=== PATIENT | male | born 1945 | race Caucasian/White ===

== ENCOUNTER 2016-11-10 05:37 | Inpatient (IN) ==
[2016-11-10] MEDS ORDERED: Ipratropium/Albuterol Neb 3 ML IH ONE (05:49)
[2016-11-10] MEDS ORDERED: *HR* LORazepam 2 MG/ML VIAL IVP ONE (05:56)
--- NOTE | 2016-11-10 05:56 | Emergency Department Note ---
Disposition Clinical Impression: COPD exacerbation Acute respiratory failure Qualifiers: Respiratory failure complication: hypoxia Qualified Code(s): J96.01 - Acute respiratory failure with hypoxia Pneumonia Qualifiers: Pneumonia type: due to unspecified organism Laterality: right Lung location: lower lobe of lung Qualified Code(s): J18.1 - Lobar pneumonia, unspecified organism Disposition: Still a Patient Condition: Serious Referrals: NO,PCP [Primary Care Provider] - Forms: ED Satisfaction Letter General Adult HPI - General Chief complaint: ED Shortness of Breath/Dyspnea Stated complaint: LOREE Time Seen by Provider: 11/10/16 05:43 Source: patient Limitations: no limitations Nursing Notes Reviewed: Yes Vital Signs Reviewed: Yes - History of Present Illness HPI Narrative: 71-year-old male who was sent [facility] the [facility] after he was admitted there today with pneumonia and COPD exacerbation. In reading the [facility] chart is seems he lives at home with his . He was sent here because he was agitated and was not tolerating the BiPAP and they felt he needed a higher level of care. He was diagnosed with pneumonia and started on vancomycin and Zosyn. When he arrived he was not on the BiPAP and his SPO2 was 70%. On BiPAP he does get into the mid 90s but remains to With a rate of approximate 40 and he cannot tolerate the BiPAP machine Consistency: constant Improves with: nothing Worsens with: nothing - Related Data Allergies Allergy/AdvReac Type Severity Reaction Status Date / Time acetaminophen [From Vicodin] Allergy See Verified 11/10/16 06:00 Comments hydrocodone [From Vicodin] Allergy See Verified 11/10/16 06:00 Comments moxifloxacin Allergy See Verified 11/10/16 06:00 Comments Limitations: ROS unobtainable due to patients medical condition Physical Exam - General Limitations: altered mental status General appearance: other (appears in respiratory distress) - Head Head exam: atraumatic - Eye Eye exam: Present: normal appearance - ENT ENT exam: normal exam - Neck Neck exam: Present: normal inspection - Chest Chest inspection: Present: normal inspection - Respiratory Respiratory exam: Present: respiratory distress, wheezes, accessory muscle use, prolonged expiratory phase - Cardiovascular Cardiovascular exam: Present: normal rhythm, tachycardia - Abdominal Exam Abdominal exam: Present: soft, Non-Tender - Extremities Exam Extremities exam: Present: normal inspection - Back Exam Back exam: Present: normal inspection - Neurological Exam Neurological exam: Present: alert, other (confused. agitated.) - Skin Skin exam: Present: warm, dry Course Course Narrative: When the patient arrived she was in respiratory distress S PO2 when he is off his mask was in the 70s. He is extremely agitated and could not tolerate BiPAP. We attempted giving Ativan 2 help with anxiolysis On removing the BiPAP machine and could not understand what he was doing. For his own safety was determined that he would need to be intubated to secure his airway. Intubation was performed by myself with one attempt. My understanding from the transfers that he was diagnosed with pneumonia and was sent here because they felt like he needed a higher level of care. He was unable to provide a history. In reviewing the basic lab work that was obtained he had a leukocytosis of 17.3, negative troponin sodium 132 potassium 3.2 chloride 81 bicarbonate 43 BUN 43 creatinine 0.73. We will obtain lab work and admitted to the ICU - Reevaluation(s) Reevaluation #1: The patient has been signed out to the day team for follow up of labwork and admission. The patient is currently stabilized from a respiratory standpoint and antibiotics/fluids are currently running. He is sedated with propofol and his sinus tachycardia is much improved after sedation. Vital Signs Temperature 98.2 F 11/10/16 05:40 Pulse Rate 125 11/10/16 05:40 Respiratory Rate 44 11/10/16 05:40 Blood Pressure 218/139 11/10/16 05:40 O2 Sat by Pulse Oximetry 91 L 11/10/16 05:40 Temperature 98.2 F 11/10/16 05:40 Pulse Rate 123 11/10/16 07:11 Respiratory Rate 14 11/10/16 07:11 Blood Pressure 192/98 11/10/16 07:11 O2 Sat by Pulse Oximetry 100 11/10/16 07:11 Oxygen Delivery Oxygen Delivery Ventilator Procedures - Intubation sedative: Etomidate Mg Given: 20 paralytic: Succinylcholine Mg Given: 100 Laryngoscope: Annelise ET Tube Size: 7.5 ET Tube Uncuffed: No Tube Secured Location: lips Tube Placement Confirmation: visualized tube passing through cords, equal breath sounds bilaterally, no breath sounds over epigastrium, confirmation by capnometry Patient Tolerated Procedure: well, no complications Intubation Complications: none Medical Decision Making - Medical Records Medical records reviewed: Yes I reviewed the patient's medical records. - Lab Data Lab results reviewed: Yes I reviewed the patient's lab results. - Radiology Data Radiology results reviewed: Yes I reviewed the patient's radiology results. - EKG Data EKG #1 EKG attestation: Yes I reviewed and interpreted this EKG. EKG shows normal: sinus rhythm Rate: tachycardia Rhythm: NSR [place]/QRS: normal Interpretation: other (sinus tach. No ST deviation.) Critical Care Time Critical Care Time: Yes Total Critical Care Time: 45 Attestation: Critical care performed: Time is exclusive of separately billable procedures. Time includes: direct patient care, patient reassessment, coordination of patient care, interpretation of data (laboratory data, radiology data, and respiratory data), review of patient's medical records, medical consultation and documentation of patient care. Procedures included in critical care time: Procedures excluded from critical care time: Endotracheal intubation Attestation Statement - Attestation Attestation: I, Levi Piedra MD, personally performed a history and physical exam of the patient and discussed their management with the resident. I reviewed the resident's note and agree with the documented findings, medical decision making , and plan of care. 71-year-old male who was transferred here from the [facility]. Patient was admitted there for pneumonia. After admission the patient developed increased respiratory distress and had to be placed on BiPAP. He became restless and agitated and was transferred here for more advanced care. Here in the emergency department the patient is alert. He is agitated and very tachypneic. He is hypertensive and tachycardic. Unable to obtain any history from the patient. He has been moderate respiratory distress. On examination patient is a well-developed well-nourished male in moderate respiratory distress. He is alert but confused and agitated. No cyanosis or diaphoresis. Oxygen saturation is 98% on BiPAP but he would not leave the BiPAP on and is pulling at his monitor leads and IV lines. Breath sounds are equal bilaterally with diffuse bilateral expiratory wheezes. Right midlung rales. Heart is moderately tachycardic. Abdomen soft with normal bowel sounds. Chest x-ray confirms a right pneumonia. Labs are pending. Patient became more and more agitated and the decision was made to go ahead and sedate and intubate the patient. He received etomidate 20 mg and succinylcholine 100 mg. He was intubated by Dr. Brunner on first attempt without difficulty. After intubation he was placed on a propofol infusion also received rocuronium 50 mg IV. At shift change the patient is being signed out to the oncoming dayshift team, Dr. Loyola and Dr. Hooks.
[2016-11-10] MEDS ORDERED: methylPREDNISolone 125 MG/2 ML VIAL IVP ONE (06:05)
[2016-11-10] MEDS ORDERED: 0.9 % Sodium Chloride 1,000 ML IVC ONE (06:29)
[2016-11-10] MEDS ORDERED: Propofol 500 MG/50 ML INFUS..BTL ONE (06:35)
[2016-11-10] MEDS ORDERED: *HR* Midazolam HCl 2 MG/2 ML VIAL IVP ONE (07:15)
[2016-11-10] MEDS ORDERED: *HR* Midazolam HCl 2 MG/2 ML VIAL ONE (07:16)
--- NOTE | 2016-11-10 07:28 | Emergency Department Note ---
Disposition Clinical Impression: COPD exacerbation Acute respiratory failure Qualifiers: Respiratory failure complication: hypoxia Qualified Code(s): J96.01 - Acute respiratory failure with hypoxia Pneumonia Qualifiers: Pneumonia type: due to unspecified organism Laterality: right Lung location: lower lobe of lung Qualified Code(s): J18.1 - Lobar pneumonia, unspecified organism Disposition: Admitted As Inpatient Condition: Serious SOB HPI - General Chief Complaint: ED Shortness of Breath/Dyspnea Stated Complaint: LOREE Time Seen by Provider: 11/10/16 05:43 Source: patient Limitations: altered mental status Nursing Notes Reviewed: Yes Vital Signs Reviewed: Yes - Related Data Home Medications Medication Instructions Recorded Confirmed Albuterol Sulfate [Albuterol 2 puff IH Q6HR PRN 11/10/16 11/10/16 Inhaler] Allopurinol [Zyloprim] 100 mg PO DAILY 11/10/16 11/10/16 Atorvastatin Calcium [Lipitor] 40 mg PO DAILY 11/10/16 11/10/16 Docusate Sodium [Dok] 100 mg PO BID PRN 11/10/16 11/10/16 Furosemide [Lasix] 40 mg PO DAILY 11/10/16 11/10/16 Guaifenesin [Mucus Relief] 400 mg PO BID PRN 11/10/16 11/10/16 Ipratropium/Albuterol Neb [Duoneb] 3 ml IH Q6HR PRN 11/10/16 11/10/16 Isosorbide MONOnitrate (24 HR) 30 mg PO DAILY 11/10/16 11/10/16 [Imdur] LORazepam [Ativan] 0.5 mg PO BID 11/10/16 11/10/16 Melatonin 3 mg PO HS 11/10/16 11/10/16 Methocarbamol [Robaxin-750] 750 mg PO QID PRN 11/10/16 11/10/16 Naproxen [Naprosyn] 500 mg PO BID 11/10/16 11/10/16 Omeprazole [PriLOSEC] 20 mg PO DAILY 11/10/16 11/10/16 Permethrin CRM [Elimite] 1 appl TP ONCE 11/10/16 11/10/16 Polyvinyl Alcohol [Artificial 1 drop BOTH EYES QID 11/10/16 11/10/16 Tears] Ranitidine HCl [Acid Sewing Demonstrator] 150 mg PO BID 11/10/16 11/10/16 Theophylline Anhydrous 300 mg PO BID 11/10/16 11/10/16 [Theophylline] Tiotropium Br/Olodaterol HCl 2 puff IH DAILY 11/10/16 11/10/16 [Stiolto Respimat Inhal [place]] Triamcinolone Acet 0.1% CRM 1 appl TP TID 11/10/16 11/10/16 [Kenalog] Allergies Allergy/AdvReac Type Severity Reaction Status Date / Time acetaminophen [From Vicodin] Allergy See Verified 11/10/16 06:00 Comments hydrocodone [From Vicodin] Allergy See Verified 11/10/16 06:00 Comments moxifloxacin Allergy See Verified 11/10/16 06:00 Comments Past Medical History - Past Medical History Medical history: Reports: COPD Psychiatric history: Reports: no psych history - Social History Smoking Status: Former smoker Smokeless Tobacco Status: No Alcohol use: Reports: none Drug use: Reports: none Physical Exam - General Limitations: altered mental status General appearance: other (appears in respiratory distress) Course Vital Signs Temperature 98.2 F 11/10/16 05:40 Pulse Rate 125 11/10/16 05:40 Respiratory Rate 44 11/10/16 05:40 Blood Pressure 218/139 11/10/16 05:40 O2 Sat by Pulse Oximetry 91 L 11/10/16 05:40 Temperature 98.2 F 11/10/16 05:40 Pulse Rate 112 11/10/16 08:17 Respiratory Rate 16 11/10/16 08:17 Blood Pressure 176/98 11/10/16 08:17 O2 Sat by Pulse Oximetry 98 11/10/16 08:17 Oxygen Delivery Oxygen Delivery Ventilator Shortness of Breath/Dyspnea - MDM Narrative Medical decision making narrative: I examined this patient and my medical decision-making was reviewed with the CLINICAL EDUCATION MANAGER/PA/Advanced Practice Nurse/Resident Physician. I agree with the documented findings, disposition and treatment plan as described except to the extent set forth below. This patient was a sign out from the evening ER staff Dr. Piedra. Patient was a transfer from the [facility] he had a hospital-acquired pneumonia and COPD. Was not tolerating BiPAP here. When they arrived here they intubated him due to respiratory distress. He has been tolerating that well. He does have pneumonia on his chest x-ray waiting on his labs and then we will go ahead and bring him into the hospital here. He got IV antibiotics at the [facility] Zosyn and vancomycin was the report. Patient stable at this time. I evaluated this patient Dr. Jessee Feliciano's evaluation management plan supervised care of the patient at [facility]. Chest X-Ray 11/10/16 06:32 IMPRESSION: 1. Endotracheal tube terminates 5.2 cm above the stephanie. D/ / Hesham Klein MD / Hesham Klein MD Interpreting Provider: Hesham Klein MD Chest X-Ray 11/10/16 06:32 IMPRESSION: 1. Endotracheal tube terminates 5.2 cm above the stephanie. D/ / Hesham Klein MD / Hesham Klein MD Interpreting Provider: Hesham Klein MD 0830 hrs. Patient's labs are back. Antibiotics were given at the [facility] and confirmed. Sedated on the vent. Spoke with the biostatistics manager they have excepted. Impression is COPD, pneumonia, hypoxia, anxiety. All acute. Critical-care time is having any separately billable procedures is 30 minutes. - Lab Data Result diagrams: 11/10/16 07:23 11/10/16 07:23 Lab Results 11/10/16 11/10/16 11/10/16 Range/Units 06:59 07:23 07:23 WBC 9.3 (4.3-11.1) K/mcL RBC 4.80 (4.19-5.50) M/mcL Hgb 13.7 (12.9-16.9) g/dL Hct 41.9 (37.5-50.1) % MCV 87.3 (83.0-100.0) fL MCH 28.5 (28.0-33.3) pg MCHC 32.7 (31.6-35.5) g/dL RDW 14.4 (11.5-14.5) % Plt Count 313 (140-400) K/mcL MPV 9.9 (9.4-12.4) fL Immature Gran % 4.7 H (0-4) % Seg Neutrophils % 83.6 % Lymphocytes % 5.8 % Monocytes % 5.4 % Eosinophils % 0.0 % Basophils % 0.5 % Neutrophils # 7.8 (1.6-8.9) K/mcL Lymphocytes # 0.5 L (0.6-4.6) K/mcL Monocytes # 0.5 (0.0-1.3) K/mcL Eosinophils # 0.0 (0.0-0.6) K/mcL Basophils # 0.1 (0.0-0.2) K/mcL Nucleated RBCs/100 WBC 0.3 H (0) /100 WBC PT (9.4-12.1) Seconds INR APTT (26.0-36.0) Seconds ABG pH (7.32-7.45) pH Units ABG pCO2 (35-45) mmHg ABG pO2 (85-104) mmHg ABG HCO3 (21-27) mEQ/L ABG Total CO2 (20-26) mEq/L ABG O2 Saturation (95-98) % ABG Base Excess (-2.0 to 3.0) mEq/L Blood Gas Modality Inspired O2 % Sodium (136-145) mEq/L Potassium (3.5-4.5) mEq/L Chloride (98-109) mEq/L Carbon Dioxide (19-29) mEq/L BUN (8-26) mg/dL Creatinine (0.72-1.25) mg/dL Est GFR ( Amer) (> 60) Est GFR (Non-Af Amer) (> 60) BUN/Creatinine Ratio (6-26) Glucose (70-99) mg/dL Calculated Osmolality (280-300) Lactic Acid (0.5-2.2) mmol/L Calcium (8.6-10.8) mg/dL Phosphorus (2.3-4.7) mg/dL Magnesium (1.6-2.6) mg/dL Total Bilirubin (0.2-1.2) mg/dL Direct Bilirubin (0.0-0.5) mg/dL Indirect Bilirubin (0.0-1.2) mg/dL AST (5-34) Units/L ALT (0-55) Units/L Alkaline Phosphatase (38-126) Units/L Troponin I (0-0.03) ng/mL B-Natriuretic Peptide 167 H (0-100) pg/mL Serum Total Protein (6.0-8.3) g/dL Albumin (3.5-5.0) g/dL Globulin (2.4-3.5) g/dL Albumin/Globulin Ratio (1.1-2.2) Urine Color Yellow (Yellow) Urine Clarity Cloudy A (Clear) Urine pH 6.0 (5.0-8.0) pH Units Ur Specific [place] 1.028 H (1.010-1.025) Urine Protein 100 H (Neg-Trace) mg/dL Urine Glucose (UA) Normal (Normal) mg/dL Urine Ketones 15 H (Negative) mg/dL Urine Blood Large H (Negative) Urine Nitrite Negative (Negative) Urine Bilirubin Negative (Negative) Urine Urobilinogen Normal (Normal) mg/dL Ur Leukocyte Esterase Negative (Negative) Urine Microscopic RBC TNTC H (0-3) per hpf Urine Microscopic WBC 5-15 H (0-3) per hpf Ur Squamous Epith Cells Many H (None-Few) per lpf Urine Bacteria None Seen (None-Few) per hpf Hyaline Casts Few (None-Few) per lpf Ur Culture Indicated? YES A (NO) 11/10/16 11/10/16 11/10/16 Range/Units 07:23 07:23 07:23 WBC (4.3-11.1) K/mcL RBC (4.19-5.50) M/mcL Hgb (12.9-16.9) g/dL Hct (37.5-50.1) % MCV (83.0-100.0) fL MCH (28.0-33.3) pg MCHC (31.6-35.5) g/dL RDW (11.5-14.5) % Plt Count (140-400) K/mcL MPV (9.4-12.4) fL Immature Gran % (0-4) % Seg Neutrophils % % Lymphocytes % % Monocytes % % Eosinophils % % Basophils % % Neutrophils # (1.6-8.9) K/mcL Lymphocytes # (0.6-4.6) K/mcL Monocytes # (0.0-1.3) K/mcL Eosinophils # (0.0-0.6) K/mcL Basophils # (0.0-0.2) K/mcL Nucleated RBCs/100 WBC (0) /100 WBC PT 12.6 H (9.4-12.1) Seconds INR 1.2 APTT 17.4 L (26.0-36.0) Seconds ABG pH (7.32-7.45) pH Units ABG pCO2 (35-45) mmHg ABG pO2 (85-104) mmHg ABG HCO3 (21-27) mEQ/L ABG Total CO2 (20-26) mEq/L ABG O2 Saturation (95-98) % ABG Base Excess (-2.0 to 3.0) mEq/L Blood Gas Modality Inspired O2 % Sodium 137 (136-145) mEq/L Potassium 4.0 (3.5-4.5) mEq/L Chloride 90 L (98-109) mEq/L Carbon Dioxide 30 H (19-29) mEq/L BUN 20 (8-26) mg/dL Creatinine 0.79 (0.72-1.25) mg/dL Est GFR ( Amer) > 60 (> 60) Est GFR (Non-Af Amer) > 60 (> 60) BUN/Creatinine Ratio 25 (6-26) Glucose 123 H (70-99) mg/dL Calculated Osmolality 288 (280-300) Lactic Acid 1.7 (0.5-2.2) mmol/L Calcium 8.9 (8.6-10.8) mg/dL Phosphorus 3.1 (2.3-4.7) mg/dL Magnesium 1.8 (1.6-2.6) mg/dL Total Bilirubin 0.9 (0.2-1.2) mg/dL Direct Bilirubin 0.5 (0.0-0.5) mg/dL Indirect Bilirubin 0.4 (0.0-1.2) mg/dL AST 23 (5-34) Units/L ALT 13 (0-55) Units/L Alkaline Phosphatase 112 (38-126) Units/L Troponin I (0-0.03) ng/mL B-Natriuretic Peptide (0-100) pg/mL Serum Total Protein 6.3 (6.0-8.3) g/dL Albumin 2.3 L (3.5-5.0) g/dL Globulin 4.0 H (2.4-3.5) g/dL Albumin/Globulin Ratio 0.6 L (1.1-2.2) Urine Color (Yellow) Urine Clarity (Clear) Urine pH (5.0-8.0) pH Units Ur Specific [place] (1.010-1.025) Urine Protein (Neg-Trace) mg/dL Urine Glucose (UA) (Normal) mg/dL Urine Ketones (Negative) mg/dL Urine Blood (Negative) Urine Nitrite (Negative) Urine Bilirubin (Negative) Urine Urobilinogen (Normal) mg/dL Ur Leukocyte Esterase (Negative) Urine Microscopic RBC (0-3) per hpf Urine Microscopic WBC (0-3) per hpf Ur Squamous Epith Cells (None-Few) per lpf Urine Bacteria (None-Few) per hpf Hyaline Casts (None-Few) per lpf Ur Culture Indicated? (NO) 11/10/16 11/10/16 Range/Units 07:23 07:30 WBC (4.3-11.1) K/mcL RBC (4.19-5.50) M/mcL Hgb (12.9-16.9) g/dL Hct (37.5-50.1) % MCV (83.0-100.0) fL MCH (28.0-33.3) pg MCHC (31.6-35.5) g/dL RDW (11.5-14.5) % Plt Count (140-400) K/mcL MPV (9.4-12.4) fL Immature Gran % (0-4) % Seg Neutrophils % % Lymphocytes % % Monocytes % % Eosinophils % % Basophils % % Neutrophils # (1.6-8.9) K/mcL Lymphocytes # (0.6-4.6) K/mcL Monocytes # (0.0-1.3) K/mcL Eosinophils # (0.0-0.6) K/mcL Basophils # (0.0-0.2) K/mcL Nucleated RBCs/100 WBC (0) /100 WBC PT (9.4-12.1) Seconds INR APTT (26.0-36.0) Seconds ABG pH 7.44 (7.32-7.45) pH Units ABG pCO2 66 H (35-45) mmHg ABG pO2 100 (85-104) mmHg ABG HCO3 44.8 H (21-27) mEQ/L ABG Total CO2 46.8 H (20-26) mEq/L ABG O2 Saturation 98 (95-98) % ABG Base Excess 17.3 H (-2.0 to 3.0) mEq/L Blood Gas Modality ASSIST CONTROL Inspired O2 60 % Sodium (136-145) mEq/L Potassium (3.5-4.5) mEq/L Chloride (98-109) mEq/L Carbon Dioxide (19-29) mEq/L BUN (8-26) mg/dL Creatinine (0.72-1.25) mg/dL Est GFR ( Amer) (> 60) Est GFR (Non-Af Amer) (> 60) BUN/Creatinine Ratio (6-26) Glucose (70-99) mg/dL Calculated Osmolality (280-300) Lactic Acid (0.5-2.2) mmol/L Calcium (8.6-10.8) mg/dL Phosphorus (2.3-4.7) mg/dL Magnesium (1.6-2.6) mg/dL Total Bilirubin (0.2-1.2) mg/dL Direct Bilirubin (0.0-0.5) mg/dL Indirect Bilirubin (0.0-1.2) mg/dL AST (5-34) Units/L ALT (0-55) Units/L Alkaline Phosphatase (38-126) Units/L Troponin I 0.04 H* (0-0.03) ng/mL B-Natriuretic Peptide (0-100) pg/mL Serum Total Protein (6.0-8.3) g/dL Albumin (3.5-5.0) g/dL Globulin (2.4-3.5) g/dL Albumin/Globulin Ratio (1.1-2.2) Urine Color (Yellow) Urine Clarity (Clear) Urine pH (5.0-8.0) pH Units Ur Specific [place] (1.010-1.025) Urine Protein (Neg-Trace) mg/dL Urine Glucose (UA) (Normal) mg/dL Urine Ketones (Negative) mg/dL Urine Blood (Negative) Urine Nitrite (Negative) Urine Bilirubin (Negative) Urine Urobilinogen (Normal) mg/dL Ur Leukocyte Esterase (Negative) Urine Microscopic RBC (0-3) per hpf Urine Microscopic WBC (0-3) per hpf Ur Squamous Epith Cells (None-Few) per lpf Urine Bacteria (None-Few) per hpf Hyaline Casts (None-Few) per lpf Ur Culture Indicated? (NO)
[2016-11-10] MEDS: FentaNYL (PF) 1,000 MCG in 0.9 % Sodium Chloride 80 ML IVC SCH ×2 (07:33→18:22)
[2016-11-10 07:37] LABS: Bilirubin,Urine Negative (Negative); Blood,Urine Large (Negative); Clarity,Urine Cloudy (Clear); Color,Urine Yellow (Yellow); Glucose,Urine (UA) Normal (Normal); Ketones,Urine 15 mg/dL (Negative); Leukocyte Esterase,Urine Negative (Negative); Nitrite,Urine Negative (Negative); Protein,Urine 100 mg/dL (Neg-Trace); Specific Gravity,Urine 1.028 (1.010-1.025); Urobilinogen,Urine Normal (Normal)
[2016-11-10 07:39] LABS: Bacteria,Urine None Seen per hpf (None-Few); RBC,Urine TNTC per hpf (0-3); Squamous Epithelial Cell,Urine Many per lpf (None-Few)
--- NOTE | 2016-11-10 07:39 | Emergency Department Note ---
Disposition Clinical Impression: COPD exacerbation Acute respiratory failure Qualifiers: Respiratory failure complication: hypoxia Qualified Code(s): J96.01 - Acute respiratory failure with hypoxia Pneumonia Qualifiers: Pneumonia type: due to unspecified organism Laterality: right Lung location: lower lobe of lung Qualified Code(s): J18.1 - Lobar pneumonia, unspecified organism Disposition: Admitted As Inpatient Condition: Serious Referrals: NO,PCP [Primary Care Provider] - Forms: ED Satisfaction Letter Time of Disposition: 08:32 SOB HPI - General Chief Complaint: ED Shortness of Breath/Dyspnea Stated Complaint: LOREE Time Seen by Provider: 11/10/16 05:43 Source: patient Limitations: altered mental status - Related Data Home Medications Medication Instructions Recorded Confirmed Albuterol Sulfate [Albuterol 2 puff IH Q6HR PRN 11/10/16 11/10/16 Inhaler] Allopurinol [Zyloprim] 100 mg PO DAILY 11/10/16 11/10/16 Atorvastatin Calcium [Lipitor] 40 mg PO DAILY 11/10/16 11/10/16 Docusate Sodium [Dok] 100 mg PO BID PRN 11/10/16 11/10/16 Furosemide [Lasix] 40 mg PO DAILY 11/10/16 11/10/16 Guaifenesin [Mucus Relief] 400 mg PO BID PRN 11/10/16 11/10/16 Ipratropium/Albuterol Neb [Duoneb] 3 ml IH Q6HR PRN 11/10/16 11/10/16 Isosorbide MONOnitrate (24 HR) 30 mg PO DAILY 11/10/16 11/10/16 [Imdur] LORazepam [Ativan] 0.5 mg PO BID 11/10/16 11/10/16 Melatonin 3 mg PO HS 11/10/16 11/10/16 Methocarbamol [Robaxin-750] 750 mg PO QID PRN 11/10/16 11/10/16 Naproxen [Naprosyn] 500 mg PO BID 11/10/16 11/10/16 Omeprazole [PriLOSEC] 20 mg PO DAILY 11/10/16 11/10/16 Permethrin CRM [Elimite] 1 appl TP ONCE 11/10/16 11/10/16 Polyvinyl Alcohol [Artificial 1 drop BOTH EYES QID 11/10/16 11/10/16 Tears] Ranitidine HCl [Acid Community Service Representative] 150 mg PO BID 11/10/16 11/10/16 Theophylline Anhydrous 300 mg PO BID 11/10/16 11/10/16 [Theophylline] Tiotropium Br/Olodaterol HCl 2 puff IH DAILY 11/10/16 11/10/16 [Stiolto Respimat Inhal [place]] Triamcinolone Acet 0.1% CRM 1 appl TP TID 11/10/16 11/10/16 [Kenalog] Allergies Allergy/AdvReac Type Severity Reaction Status Date / Time acetaminophen [From Vicodin] Allergy See Verified 11/10/16 06:00 Comments hydrocodone [From Vicodin] Allergy See Verified 11/10/16 06:00 Comments moxifloxacin Allergy See Verified 11/10/16 06:00 Comments Past Medical History - Past Medical History Medical history: Reports: COPD Psychiatric history: Reports: no psych history - Social History Smoking Status: Former smoker Smokeless Tobacco Status: No Alcohol use: Reports: none Drug use: Reports: none Physical Exam - General Limitations: altered mental status General appearance: other (appears in respiratory distress) Course Course Narrative: 0700 Patient was signed out at the beginning my shift by Dr. Brunner and Dr. Piedra. Patient presented to the [facility] for evaluation of persistently worsening shortness of breath and altered mental status. He presented to their facility with what appear to be a COPD exacerbation with pneumonia. According to sign out patient received antibiotics in his head and entire detailed workup started. I reviewed the labs that were ordered as well as a transfer papers from the outside facility. Patient had alterations in the sedation regiment started prior to my arrival. Fentanyl was added on as well as dosing of propofol. Patient still comfortable on the ventilator this time. Repeat physical exam by myself shows bilateral ventilation is in no apparent distress at this point. Labs will be resulted and completed and patient will need admission to the hospital. Chest x-ray is reviewed and shows a right lower lobe consolidation that is different from previous according to the chest x-ray reviewed from the [facility] and a repeat imaging study performed at our facility. Patient is stable at this time vital signs are being augmented by medication but are within normal limits we will continue to monitor the admission process to the ICU is completed. No other acute issues noted during my initial evaluation we will continue to observe - Reevaluation(s) Reevaluation #1: Patient's labs reviewed elevated troponin but just above normal. ICU Attending contacted this time Time: 08:12 Reevaluation #2: Detailed consultation as well as review of patient's medical history presentation were discussed with the on-call thread separator Dr. Rojas. He is happy to accept the patient to the ICU at this time. Patient's vital signs have stabilized after medical intervention. Sedation is appropriate at this point. ICU admission to be completed this time. We will continue to monitor the patient in emergency room until the admission process is completed Time: 08:32 Vital Signs Temperature 98.2 F 11/10/16 05:40 Pulse Rate 125 11/10/16 05:40 Respiratory Rate 44 11/10/16 05:40 Blood Pressure 218/139 11/10/16 05:40 O2 Sat by Pulse Oximetry 91 L 11/10/16 05:40 Temperature 98.2 F 11/10/16 05:40 Pulse Rate 95 11/10/16 07:35 Respiratory Rate 14 11/10/16 07:35 Blood Pressure 140/88 11/10/16 07:35 O2 Sat by Pulse Oximetry 100 11/10/16 07:35 Oxygen Delivery Oxygen Delivery Ventilator Shortness of Breath/Dyspnea - MDM Narrative Medical decision making narrative: Altered mental status, acute respiratory failure, pneumonia - Medical Records Medical records reviewed: Yes I reviewed the patient's medical records. - Lab Data Lab results reviewed: Yes I reviewed the patient's lab results. - Radiology Data Radiology results reviewed: Yes I reviewed the patient's radiology results. Chest x-ray shows right lower lobe consolidation reviewed by myself and confirmed by radiology - EKG Data EKG attestation: Yes I reviewed and interpreted this EKG. EKG shows normal: Reports: sinus rhythm Rate: Reports: tachycardia Rhythm: Reports: other (Intermittent ectopy on EKG)
[2016-11-10] MEDS ORDERED: Piperacillin/Tazobactam 3.375 GM in D5% in Water (Mini-Bag+) 100 ML IVPB ONE (07:40)
[2016-11-10] MEDS ORDERED: Vancomycin 1,000 MG in D5% in Water 250 ML IVPB ONE (07:40)
[2016-11-10 07:42] LABS: ABG Base Excess 17.3 mEq/L (-2.0 to 3.0); ABG HCO3 44.8 mEQ/L (21-27); ABG Oxygen Saturation 98 % (95-98); ABG PCO2 66 mmHg (35-45); ABG PH 7.44 pH Units (7.32-7.45); ABG PO2 100 mmHg (85-104); ABG TCO2 46.8 mEq/L (20-26)
[2016-11-10 07:43] LABS: Blood Gas FiO2 60 %
[2016-11-10] MEDS ORDERED: *HR* Etomidate 20 MG/10 ML AMPUL IVP ONE (07:43)
[2016-11-10] MEDS ORDERED: *HR* Succinylcholine 200 MG/10 ML VIAL IVP ONE (07:43)
[2016-11-10] MEDS ORDERED: *HR* Rocuronium Bromide 50 MG/5 ML VIAL IVC ONE (07:43)
[2016-11-10 07:46] LABS: Basophils # 0.1 K/mcL (0.0-0.2); Basophils % 0.5 %; Hematocrit 41.9 % (37.5-50.1); Hemoglobin 13.7 g/dL (12.9-16.9); Immature Granulocytes % 4.7 % (0-4); Lymphocytes # 0.5 K/mcL (0.6-4.6); Lymphocytes % 5.8 %; Mean Corpuscular HGB Conc 32.7 g/dL (31.6-35.5); Mean Corpuscular Hemoglobin 28.5 pg (28.0-33.3); Mean Corpuscular Volume 87.3 fL (83.0-100.0); Mean Platelet Volume 9.9 fL (9.4-12.4); Monocytes # 0.5 K/mcL (0.0-1.3); Monocytes % 5.4 %; Neutrophils # 7.8 K/mcL (1.6-8.9); Nucleated Red Blood Cells 0.3 /100 WBC (0); Platelet Count 313 K/mcL (140-400); Red Cell Distribution Width 14.4 % (11.5-14.5); Segmented Neutrophils % 83.6 %
[2016-11-10 07:52] LABS: Hyaline Casts,Urine Few per lpf (None-Few)
[2016-11-10 08:00] LABS: Alanine Aminotransferase 13 Units/L (0-55); Albumin 2.3 g/dL (3.5-5.0); Albumin/Globulin Ratio 0.6 (1.1-2.2); Alkaline Phosphatase 112 Units/L (38-126); Aspartate Amino Transferase 23 Units/L (5-34); BUN/Creatinine Ratio 25 (6-26); Bilirubin,Direct 0.5 mg/dL (0.0-0.5); Bilirubin,Indirect 0.4 mg/dL (0.0-1.2); Bilirubin,Total 0.9 mg/dL (0.2-1.2); Blood Urea Nitrogen 20 mg/dL (8-26); Calcium 8.9 mg/dL (8.6-10.8); Carbon Dioxide 30 mEq/L (19-29); Chloride 90 mEq/L (98-109); Glucose 123 mg/dL (70-99); Magnesium 1.8 mg/dL (1.6-2.6); Osmolality,Calculated 288 (280-300); Phosphorous 3.1 mg/dL (2.3-4.7); Sodium 137 mEq/L (136-145); Total Protein 6.3 g/dL (6.0-8.3); eGFR For African Americans > 60 (> 60); eGFR For Non-African Americans > 60 (> 60)
[2016-11-10] MEDS ORDERED: 0.9 % Sodium Chloride 1,000 ML ONE (08:00)
[2016-11-10 08:09] LABS: INR 1.2; Prothrombin Time 12.6 Seconds (9.4-12.1)
[2016-11-10 08:11] LABS: Activated Partial Thrombo Time 17.4 Seconds (26.0-36.0)
[2016-11-10] MEDS ORDERED: Aspirin 81 MG TAB.CHEW PO STA (08:14)
[2016-11-10] MEDS ORDERED: Lacri-Lube 3.5 GM TUBE BOTH EYES PRN (09:26)
--- NOTE | 2016-11-10 09:44 | Pulmonology History & Physical ---
Date of Encounter: 11/10/16 Time of Encounter: 09:38 Assessment and Plan (1) Acute respiratory failure Current visit: Yes Status: Acute Patient with a known history of COPD presented to [place] before transfer to [facility] with increasing shortness of breath. Patient was placed on bipap but eventually sedated and intubated due to agitation while on bipap. CXR suggestive of right lower lobe pneumonia Blood cultures from [place] resulted in gram positive cocci in chains in both bottles. WBC 9.3 Suspect acute respiratory failure secondary to pneumonia, likely aspiration, vs copd exacerbation. Blood cultures x2 received, sputum culture ordered, urine legionella and strep pneumoniae antigen ordered, MRSA swab surveillance ordered. Patient intubated receiving PEEP of 5 and FiO2 at 40%, satting at 98%. Vitals stable. Solumedrol 40mg q6h, duonebs q4h, Vancomycin and zosyn. Qualifiers: Respiratory failure complication: hypoxia and hypercapnia Qualified Code(s) : J96.01 - Acute respiratory failure with hypoxia; J96.02 - Acute respiratory failure with hypercapnia (2) Pneumonia Current visit: Yes Status: Acute CXR revealed right lower lobe airpace disease concerning for pneumonia. WBC 9.3 Blood cultures from [place] revealed gram positive cocci in chain in both bottles. Continue with antibiotics vancomycin and zosyn. May discontinue vancomycin if MRSA screening negative. Qualifiers: Pneumonia type: due to unspecified organism Laterality: right Lung location: lower lobe of lung Qualified Code(s): J18.1 - Lobar pneumonia, unspecified organism (3) COPD exacerbation Current visit: Yes Status: Acute per plan in assessments above. (4) Altered mental status Current visit: Yes Status: Acute Likely secondary to acute respiratory failure secondary to pneumonia vs copd exacerbation. Qualifiers: Altered mental status type: unspecified Qualified Code(s): R41.82 - Altered mental status, unspecified (5) Elevated troponin Current visit: Yes Status: Acute Troponin at 0.04, EKG revealed sinus tachycardia. Troponin elevation likely due to demand ischemia secondary to acute respiratory failure. (6) GERD (gastroesophageal reflux disease) Current visit: Yes Status: Acute gi ppx with protonix. Qualifiers: Esophagitis presence: esophagitis presence not specified Qualified Code(s) : K21.9 - Gastro-esophageal reflux disease without esophagitis (7) Hepatitis C Current visit: Yes Status: Acute History of Hepatitis C when reviewing [place] records. No current therapy at this time. Qualifiers: Viral hepatitis chronicity: unspecified Hepatic coma status: without hepatic coma Qualified Code(s): B19.20 - Unspecified viral hepatitis C without hepatic coma (8) DVT prophylaxis Current visit: Yes Status: Acute Heparin for dvt ppx. History of Present Illness Chief complaint: Acute Respiratory Failure, pneumonia, copd exac HPI: Mr. Guardado is a 71 year old male with history of COPD, CAD, Hepatitis C, GERD, gout, and dyslipidemia who presented to [facility] ED via transfer from [place] with complaint of increasing shortness of breath found to be pneumonia vs COPD exacerbation. He was transferred due to inability to tolerate BiPap. Bipap in [facility] ED resulted in mid 90 sats; however patient became agitated and removing bipap. Patient was therefore intubated and soft restraints ordered. Cultures and imaging were ordered which revealed right lower lobe pneumonia. Patient currently sedated and intubated on ventilator with PEEP of 5 and FiO2 of 40%. Past Med Surg Social Fam HX - Past Medical History Medical history: COPD, coronary artery disease, GERD, hepatitis (Hep C), hyperlipidemia, other (gout) Psychiatric history: no psych history - Social History Smoking Status: Former smoker Smokeless Tobacco Status: No Alcohol use: none Drug use: none Current living situation: Home - Independent, With Family Activity Level: Independent ambulation Recent Out of Country Travel Within the Last 8 Weeks: No Exposure or Possible Exposure to Illness During Travel: No Medications and Allergies Albuterol Sulfate [Albuterol Inhaler] 2 puff IH Q6HR PRN 11/10/16 [History] Allopurinol [Zyloprim] 100 mg PO DAILY 11/10/16 [History] Atorvastatin Calcium [Lipitor] 40 mg PO DAILY 11/10/16 [History] Docusate Sodium [Dok] 100 mg PO BID PRN 11/10/16 [History] Furosemide [Lasix] 40 mg PO DAILY 11/10/16 [History] Guaifenesin [Mucus Relief] 400 mg PO BID PRN 11/10/16 [History] Ipratropium/Albuterol Neb [Duoneb] 3 ml IH Q6HR PRN 11/10/16 [History] Isosorbide MONOnitrate (24 HR) [Imdur] 30 mg PO DAILY 11/10/16 [History] LORazepam [Ativan] 0.5 mg PO BID 11/10/16 [History] Melatonin 3 mg PO HS 11/10/16 [History] Methocarbamol [Robaxin-750] 750 mg PO QID PRN 11/10/16 [History] Naproxen [Naprosyn] 500 mg PO BID 11/10/16 [History] Omeprazole [PriLOSEC] 20 mg PO DAILY 11/10/16 [History] Permethrin CRM [Elimite] 1 appl TP ONCE 11/10/16 [History] Polyvinyl Alcohol [Artificial Tears] 1 drop BOTH EYES QID 11/10/16 [History] Ranitidine HCl [Acid Solder Deposit Operator] 150 mg PO BID 11/10/16 [History] Theophylline Anhydrous [Theophylline] 300 mg PO BID 11/10/16 [History] Tiotropium Br/Olodaterol HCl [Stiolto Respimat Inhal [place]] 2 puff IH DAILY [History] Triamcinolone Acet 0.1% CRM [Kenalog] 1 appl TP TID 11/10/16 [History] Allergies acetaminophen [From Vicodin] Allergy (Verified 11/10/16 06:00) See Comments Unknown Allergy hydrocodone [From Vicodin] Allergy (Verified 11/10/16 06:00) See Comments Unknown Allergy moxifloxacin Allergy (Verified 11/10/16 06:00) See Comments Unknown Allergy ROS unobtainable: due to endotracheal tube, due to mental status All Systems: A 10-system review of systems was performed and is negative for pertinent findings except as documented above in the HPI. Physical Examination Vital Signs: Vital Signs, Last 4 Hours Temp Pulse Resp BP 11/10/16 09:13 97.8 F 12 101/58 11/10/16 08:49 78 12 110/58 General appearance: other (sedated and intubated on ventilator, no extremity movement or eye opening when prompted) Eyes: nonicteric Neck: supple Effort: normal Inspection: normal Auscultation: left: rhonchi (mild), right: rales Cardiovascular: regular rate and rhythm Gastrointestinal: hypoactive bowel sounds, soft, non-distended Integumentary: normal Extremities: no cyanosis, no edema, pink and warm, pulses normal Musculoskeletal: no deformities non-focal exam, pupils equal and round Results - Laboratory Findings CBC and BMP: 11/10/16 07:23 11/10/16 07:23 ABG ABG pH 7.44 pH Units (7.32-7.45) 11/10/16 07:30 ABG pCO2 66 mmHg (35-45) H 11/10/16 07:30 ABG pO2 100 mmHg (85-104) 11/10/16 07:30 ABG O2 Saturation 98 % (95-98) 11/10/16 07:30 PT/INR, D-dimer PT 12.6 Seconds (9.4-12.1) H 11/10/16 07:23 Abnormal lab findings: Abnormal lab results Immature Gran % 4.7 % (0-4) H 11/10/16 07:23 Lymphocytes # 0.5 K/mcL (0.6-4.6) L 11/10/16 07:23 Nucleated RBCs/100 WBC 0.3 /100 WBC (0) H 11/10/16 07:23 PT 12.6 Seconds (9.4-12.1) H 11/10/16 07:23 APTT 17.4 Seconds (26.0-36.0) L 11/10/16 07:23 ABG pCO2 66 mmHg (35-45) H 11/10/16 07:30 ABG HCO3 44.8 mEQ/L (21-27) H 11/10/16 07:30 ABG Total CO2 46.8 mEq/L (20-26) H 11/10/16 07:30 ABG Base Excess 17.3 mEq/L (-2.0 to 3.0) H 11/10/16 07:30 Chloride 90 mEq/L (98-109) L 11/10/16 07:23 Carbon Dioxide 30 mEq/L (19-29) H 11/10/16 07:23 Glucose 123 mg/dL (70-99) H 11/10/16 07:23 Troponin I 0.04 ng/mL (0-0.03) H* 11/10/16 07:23 B-Natriuretic Peptide 167 pg/mL (0-100) H 11/10/16 07:23 Albumin 2.3 g/dL (3.5-5.0) L 11/10/16 07:23 Globulin 4.0 g/dL (2.4-3.5) H 11/10/16 07:23 Albumin/Globulin Ratio 0.6 (1.1-2.2) L 11/10/16 07:23 Urine Clarity Cloudy (Clear) A 11/10/16 06:59 Ur Specific [place] 1.028 (1.010-1.025) H 11/10/16 06:59 Urine Protein 100 mg/dL (Neg-Trace) H 11/10/16 06:59 Urine Ketones 15 mg/dL (Negative) H 11/10/16 06:59 Urine Blood Large (Negative) H 11/10/16 06:59 Urine Microscopic RBC TNTC per hpf (0-3) H 11/10/16 06:59 Urine Microscopic WBC 5-15 per hpf (0-3) H 11/10/16 06:59 Ur Squamous Epith Cells Many per lpf (None-Few) H 11/10/16 06:59 Ur Culture Indicated? YES (NO) A 11/10/16 06:59 Vancomycin Trough 4.5 mcg/mL (10-20) L 11/10/16 07:40
[2016-11-10 10:48] LABS: ABG Base Excess 19.7 mEq/L (-2.0 to 3.0); ABG HCO3 48.2 mEQ/L (21-27); ABG Oxygen Saturation 96 % (95-98); ABG PH 7.41 pH Units (7.32-7.45); ABG PO2 83 mmHg (85-104); ABG TCO2 50.5 mEq/L (20-26); Blood Gas FiO2 40 %
[2016-11-10 10:50] LABS: ABG PCO2 76 mmHg (35-45)
[2016-11-10] MEDS ORDERED: Naloxone 0.4 MG/ML INJ IVP PRN (11:05)
[2016-11-10] MEDS: MethylPREDNISolone 40 MG/ML VIAL IVP SCH ×3 (12:09→23:09)
[2016-11-10] MEDS: Lacri-Lube 3.5 GM TUBE BOTH EYES SCH ×4 (12:09→23:10)
[2016-11-10] MEDS: *HR* Heparin 5,000 UNIT/ML VIAL SQ SCH ×3 (12:09→23:09)
[2016-11-10] MEDS: Ipratropium/Albuterol Neb 3 ML IH SCH ×3 (12:14→20:56)
--- NOTE | 2016-11-10 16:09 | Electrocardiograph Report ---
[facility] Test Date: 2016-11-10 Pat Name: Stefano Guardado Department: [id number] Room: 08 Gender: M [employer]: CATE : 1945 Requested By: Mitchell Brunner Order Number: [id number] Reading MD: Xuan Hines Measurements Intervals [place] Rate: 123 P: 70 IN: 110 QRS: 38 QRSD: 94 T: 65 QT: 302 QTc: 375 Interpretive Statements SINUS TACHYCARDIA WITH SHORT IN INTERVAL WITH OCCASIONAL SUPRAVENTRICULAR PREMATURE COMPLEXES ABNORMAL RHYTHM ECG Electronically Signed On 11-10-16 16:07:11 EST by Xuan Hines
[2016-11-10] MEDS: Chlorhexidine Rinse 15 ML MOUTHWASH MM SCH (19:55)
[2016-11-11] MEDS: Ipratropium/Albuterol Neb 3 ML IH SCH ×6 (00:36→19:45)
[2016-11-11 02:49] LABS: Basophils % 0.3 %; Hematocrit 34.4 % (37.5-50.1); Immature Granulocytes % 4.7 % (0-4); Lymphocytes # 0.8 K/mcL (0.6-4.6); Lymphocytes % 9.7 %; Mean Corpuscular HGB Conc 32.6 g/dL (31.6-35.5); Mean Corpuscular Hemoglobin 28.5 pg (28.0-33.3); Mean Corpuscular Volume 87.5 fL (83.0-100.0); Mean Platelet Volume 9.6 fL (9.4-12.4); Monocytes # 0.7 K/mcL (0.0-1.3); Monocytes % 8.8 %; Neutrophils # 6.1 K/mcL (1.6-8.9); Nucleated Red Blood Cells 0.3 /100 WBC (0); Platelet Count 265 K/mcL (140-400); Red Blood Count 3.93 M/mcL (4.19-5.50); Red Cell Distribution Width 14.6 % (11.5-14.5); Segmented Neutrophils % 76.5 %
[2016-11-11 02:50] LABS: Hemoglobin 11.2 g/dL (12.9-16.9)
[2016-11-11 02:54] LABS: Ionized Calcium 1.08 mmol/L (1.15-1.35)
[2016-11-11 03:02] LABS: Alanine Aminotransferase 12 Units/L (0-55); Alkaline Phosphatase 75 Units/L (38-126); Aspartate Amino Transferase 17 Units/L (5-34); BUN/Creatinine Ratio 38 (6-26); Bilirubin,Total 0.3 mg/dL (0.2-1.2); Calcium 8.6 mg/dL (8.6-10.8); Carbon Dioxide 39 mEq/L (19-29); Chloride 91 mEq/L (98-109); Glucose 155 mg/dL (70-99); Magnesium 2.1 mg/dL (1.6-2.6); Osmolality,Calculated 301 (280-300); Phosphorous 3.5 mg/dL (2.3-4.7); Potassium 3.9 mEq/L (3.5-4.5); Sodium 139 mEq/L (136-145); Total Protein 5.2 g/dL (6.0-8.3); eGFR For African Americans > 60 (> 60); eGFR For Non-African Americans > 60 (> 60)
[2016-11-11 03:03] LABS: Albumin/Globulin Ratio 0.6 (1.1-2.2); Globulin 3.3 g/dL (2.4-3.5)
[2016-11-11 03:04] LABS: Albumin 1.9 g/dL (3.5-5.0); Blood Urea Nitrogen 41 mg/dL (8-26)
[2016-11-11] MEDS: Lacri-Lube 3.5 GM TUBE BOTH EYES SCH (04:30)
[2016-11-11 05:29] LABS: ABG Base Excess 13.5 mEq/L (-2.0 to 3.0); ABG HCO3 44.5 mEQ/L (21-27); ABG Oxygen Saturation 97 % (95-98); ABG PH 7.27 pH Units (7.32-7.45); ABG PO2 100 mmHg (85-104); ABG TCO2 47.5 mEq/L (20-26)
[2016-11-11 05:30] LABS: Blood Gas FiO2 40 %
[2016-11-11 05:32] LABS: ABG PCO2 97 mmHg (35-45)
[2016-11-11] MEDS: FentaNYL (PF) 1,000 MCG in 0.9 % Sodium Chloride 80 ML IVC SCH ×4 (05:51→19:58)
[2016-11-11] MEDS: *HR* Heparin 5,000 UNIT/ML VIAL SQ SCH ×3 (05:52→23:48)
[2016-11-11] MEDS: MethylPREDNISolone 40 MG/ML VIAL IVP SCH ×3 (05:52→18:53)
[2016-11-11] MEDS ORDERED: Vancomycin 1,000 MG in D5% in Water 250 ML IVPB SCH (07:00)
[2016-11-11] MEDS ORDERED: Calcium Gluconate 1,000 MG in D5% in Water 100 ML IVPB ONE (07:36)
--- NOTE | 2016-11-11 07:43 | Pulmonology Progress Note ---
Date of Encounter: 11/11/16 Time of Encounter: 07:40 Assessment and Plan (1) Acute respiratory failure Current Visit: Yes Status: Acute Patient sedated and intubated, easily arousable, good eye movement and extremity movement when prompted. Due to agitation, patient is in soft restraints of upper extremities Acute respiratory failure secondary to pneumonia vs copd exacerbation Blood cultures from [place] grew gram positive cocci in chains, Urine Strep pneumoniae Antigen is positive, sputum culture results pending, MRSA screen negative. WBC 7.9 Continue ventilator support. PEEP 5, FiO2 40%, rate 14, satting 98%. Vitals stable Continue steroids, duonebs. Vancomycin and Zosyn discontinued. Start Rocephin. Qualifiers: Respiratory failure complication: hypoxia and hypercapnia Qualified Code(s) : J96.01 - Acute respiratory failure with hypoxia; J96.02 - Acute respiratory failure with hypercapnia (2) Pneumonia Current Visit: Yes Status: Acute Continue per plan in assessment above. Qualifiers: Pneumonia type: due to Pneumococcus Laterality: right Lung location: lower lobe of lung Qualified Code(s): J13 - Pneumonia due to Streptococcus pneumoniae (3) COPD exacerbation Current Visit: Yes Status: Acute per plan in assessments above. (4) Altered mental status Current Visit: Yes Status: Acute Likely secondary to acute respiratory failure secondary to pneumonia vs copd exacerbation. Qualifiers: Altered mental status type: unspecified Qualified Code(s): R41.82 - Altered mental status, unspecified (5) Elevated troponin Current Visit: Yes Status: Acute (6) GERD (gastroesophageal reflux disease) Current Visit: Yes Status: Acute gi ppx with protonix. Qualifiers: Esophagitis presence: esophagitis presence not specified Qualified Code(s) : K21.9 - Gastro-esophageal reflux disease without esophagitis (7) Hepatitis C Current Visit: Yes Status: Acute History of [facility] No current therapy at this time. Qualifiers: Viral hepatitis chronicity: unspecified Hepatic coma status: without hepatic coma Qualified Code(s): B19.20 - Unspecified viral hepatitis C without hepatic coma (8) DVT prophylaxis Current Visit: Yes Status: Acute Heparin for dvt ppx. Subjective Principal diagnosis: Acute Resp Failure Interval history: Patient did well overnight. Arousable and agitated while on ventilator, soft restraints in place upper extremities. Critical lab this morning of pCO2 97; therefore, increased vent rate from 12 to 14. Vent continues at FiO2 40% and PEEP 5. Objective PUL Vital signs: Last Vital Signs Temp 98.3 F 11/11/16 04:00 Pulse 57 11/11/16 06:00 Resp 14 11/11/16 06:00 BP 108/53 11/11/16 06:00 Pulse Ox 96 11/11/16 06:00 General appearance: other (Intubated on ventilator, agitated when arousable, eye opening prompted, extremity movement when prompted) Eyes: nonicteric Neck: supple Effort: normal Auscultation: left: clear, right: rales Cardiovascular: regular rate and rhythm Gastrointestinal: hypoactive bowel sounds, soft, non-distended Integumentary: normal Extremities: no cyanosis, no edema, pink and warm, pulses normal Musculoskeletal: no deformities non-focal exam, pupils equal and round Ventilator Settings Ventilator Settings: Ventilator Settings, Last 8 Hours Ventilator Mode A/C Ventilator Mode A/C Ventilator Mode A/C Ventilator Mode VC+ Ventilator Mode VC+ Ventilator Mode VC+ Ventilator Mode VC+ Ventilator Mode VC+ Ventilator Mode VC+ Ventilator Mode VC+ Ventilator Mode VC+ Ventilator Mode VC+ Ventilator Tidal Volume 500 Setting Ventilator Tidal Volume 500 Setting Ventilator Tidal Volume 500 Setting Ventilator Tidal Volume 500 Setting Ventilator Tidal Volume 500 Setting Ventilator Tidal Volume 500 Setting Ventilator Tidal Volume 500 Setting Ventilator Tidal Volume 500 Setting Ventilator Tidal Volume 500 Setting Ventilator Tidal Volume 500 Setting Ventilator Tidal Volume 500 Setting Ventilator Tidal Volume 500 Setting Ventilator Respiratory Rate 14 Setting Ventilator Respiratory Rate 14 Setting Ventilator Respiratory Rate 12 Setting Ventilator Respiratory Rate 12 Setting Ventilator Respiratory Rate 12 Setting Ventilator Respiratory Rate 12 Setting Ventilator Respiratory Rate 12 Setting Ventilator Respiratory Rate 12 Setting Ventilator Respiratory Rate 12 Setting Ventilator Respiratory Rate 12 Setting Ventilator Respiratory Rate 12 Setting Ventilator Respiratory Rate 12 Setting Actual Respiratory Rate 14 Actual Respiratory Rate 14 Actual Respiratory Rate 12 Actual Respiratory Rate 12 Actual Respiratory Rate 12 Actual Respiratory Rate 12 Actual Respiratory Rate 12 Actual Respiratory Rate 12 Actual Respiratory Rate 12 Actual Respiratory Rate 12 Actual Respiratory Rate 12 Positive End Expiratory 5 Pressure Positive End Expiratory 5 Pressure Positive End Expiratory 5 Pressure Positive End Expiratory 5 Pressure Positive End Expiratory 5 Pressure Positive End Expiratory 5 Pressure Positive End Expiratory 5 Pressure Positive End Expiratory 5 Pressure Positive End Expiratory 5 Pressure Positive End Expiratory 5 Pressure Positive End Expiratory 5 Pressure Positive End Expiratory 5 Pressure Peak Inspiratory Airway 26 Pressure Peak Inspiratory Airway 27 Pressure Peak Inspiratory Airway 23 Pressure Peak Inspiratory Airway 25 Pressure Peak Inspiratory Airway 24 Pressure Peak Inspiratory Airway 23 Pressure Peak Inspiratory Airway 26 Pressure Peak Inspiratory Airway 25 Pressure Peak Inspiratory Airway 26 Pressure Peak Inspiratory Airway 26 Pressure Peak Inspiratory Airway 21 Pressure Results - Laboratory Findings CBC and BMP: 11/11/16 02:42 11/11/16 02:42 ABG ABG pH 7.27 pH Units (7.32-7.45) L 11/11/16 05:21 ABG pCO2 97 mmHg (35-45) H* 11/11/16 05:21 ABG pO2 100 mmHg (85-104) 11/11/16 05:21 ABG O2 Saturation 97 % (95-98) 11/11/16 05:21 PT/INR, D-dimer PT 12.6 Seconds (9.4-12.1) H 11/10/16 07:23 Abnormal lab findings: Abnormal lab results RBC 3.93 M/mcL (4.19-5.50) L 11/11/16 02:42 Hgb 11.2 g/dL (12.9-16.9) L D 11/11/16 02:42 Hct 34.4 % (37.5-50.1) L 11/11/16 02:42 RDW 14.6 % (11.5-14.5) H 11/11/16 02:42 Immature Gran % 4.7 % (0-4) H 11/11/16 02:42 Nucleated RBCs/100 WBC 0.3 /100 WBC (0) H 11/11/16 02:42 PT 12.6 Seconds (9.4-12.1) H 11/10/16 07:23 APTT 17.4 Seconds (26.0-36.0) L 11/10/16 07:23 ABG pH 7.27 pH Units (7.32-7.45) L 11/11/16 05:21 ABG pCO2 97 mmHg (35-45) H* 11/11/16 05:21 ABG HCO3 44.5 mEQ/L (21-27) H 11/11/16 05:21 ABG Total CO2 47.5 mEq/L (20-26) H 11/11/16 05:21 ABG Base Excess 13.5 mEq/L (-2.0 to 3.0) H 11/11/16 05:21 Chloride 91 mEq/L (98-109) L 11/11/16 02:42 Carbon Dioxide 39 mEq/L (19-29) H 11/11/16 02:42 BUN 41 mg/dL (8-26) H D 11/11/16 02:42 BUN/Creatinine Ratio 38 (6-26) H 11/11/16 02:42 Glucose 155 mg/dL (70-99) H 11/11/16 02:42 POC Glucose 150 (58-89) H 11/11/16 00:07 Calculated Osmolality 301 (280-300) H 11/11/16 02:42 Ionized Calcium 1.08 mmol/L (1.15-1.35) L 11/11/16 02:42 Troponin I 0.04 ng/mL (0-0.03) H* 11/10/16 07:23 B-Natriuretic Peptide 167 pg/mL (0-100) H 11/10/16 07:23 Serum Total Protein 5.2 g/dL (6.0-8.3) L 11/11/16 02:42 Albumin 1.9 g/dL (3.5-5.0) L 11/11/16 02:42 Albumin/Globulin Ratio 0.6 (1.1-2.2) L 11/11/16 02:42 Urine Clarity Cloudy (Clear) A 11/10/16 06:59 Ur Specific [place] 1.028 (1.010-1.025) H 11/10/16 06:59 Urine Protein 100 mg/dL (Neg-Trace) H 11/10/16 06:59 Urine Ketones 15 mg/dL (Negative) H 11/10/16 06:59 Urine Blood Large (Negative) H 11/10/16 06:59 Urine Microscopic RBC TNTC per hpf (0-3) H 11/10/16 06:59 Urine Microscopic WBC 5-15 per hpf (0-3) H 11/10/16 06:59 Ur Squamous Epith Cells Many per lpf (None-Few) H 11/10/16 06:59 Ur Culture Indicated? YES (NO) A 11/10/16 06:59 Vancomycin Trough 4.5 mcg/mL (10-20) L 11/10/16 07:40 - Microbiology Findings Microbiology Findings: Microbiology, Last 48 Hours 11/10/16 16:35 Sputum Culture - Preliminary Sputum - Clinical Findings Intake & Output: Intake & Output 11/10/16 11/10/16 11/11/16 15:59 23:59 07:59 Intake Total 1410 / 1410 420.0 / 420.0 347 / 347 Output Total 500 / 500 300 / 300 500 / 500 Balance 910 / 910 120.0 / 120.0 -153 / -153 Weight 71.214 kg 70.76 kg Consult Discharge Plan - Plan Referrals: NO,PCP [Primary Care Provider] -
[2016-11-11] MEDS ORDERED: Piperacillin/Tazobactam 3.375 GM in D5% in Water (Mini-Bag+) 100 ML IVPB SCH ×2 (08:00→18:00)
[2016-11-11 08:02] LABS: ABG Base Excess 19.3 mEq/L (-2.0 to 3.0); ABG HCO3 50.4 mEQ/L (21-27); ABG Oxygen Saturation 86 % (95-98); ABG PH 7.31 pH Units (7.32-7.45); ABG PO2 57 mmHg (85-104); ABG TCO2 53.5 mEq/L (20-26); Blood Gas FiO2 40 %
[2016-11-11 08:05] LABS: ABG PCO2 100 mmHg (35-45)
[2016-11-11] MEDS: Chlorhexidine Rinse 15 ML MOUTHWASH MM SCH ×2 (08:20→19:56)
[2016-11-11] MEDS: Pantoprazole 40 MG VIAL IVP SCH (08:20)
[2016-11-11 11:29] LABS: ABG PCO2 62 mmHg (35-45); ABG PO2 51 mmHg (85-104)
[2016-11-11 11:30] LABS: ABG Base Excess 22.7 mEq/L (-2.0 to 3.0); ABG HCO3 49.5 mEQ/L (21-27); ABG Oxygen Saturation 89 % (95-98); ABG PH 7.51 pH Units (7.32-7.45); ABG TCO2 51.4 mEq/L (20-26); Blood Gas FiO2 40 %
[2016-11-12] MEDS: Ipratropium/Albuterol Neb 3 ML IH SCH ×7 (00:10→23:42)
[2016-11-12] MEDS ORDERED: *HR* Dextrose 50 % in Water (Syg) 50 ML SYRINGE IVP PRN (00:42)
[2016-11-12] MEDS ORDERED: D5% in Water 1,000 ML IV PRN ×2 (00:42→20:52)
[2016-11-12] MEDS ORDERED: Dextrose Gel 15 GM PO PRN ×2 (00:42)
[2016-11-12] MEDS: Insulin LISPRO 300 UNITS/3 ML VIAL SQ SCH ×4 (01:01→17:00)
[2016-11-12] MEDS: FentaNYL (PF) 1,000 MCG in 0.9 % Sodium Chloride 80 ML IVC SCH ×2 (02:39→08:06)
[2016-11-12 04:29] LABS: Hematocrit 32.6 % (37.5-50.1); Hemoglobin 11.1 g/dL (12.9-16.9); Mean Corpuscular Hemoglobin 29.1 pg (28.0-33.3); Mean Corpuscular Volume 85.6 fL (83.0-100.0); Mean Platelet Volume 9.8 fL (9.4-12.4); Platelet Count 284 K/mcL (140-400); Red Blood Count 3.81 M/mcL (4.19-5.50); Red Cell Distribution Width 14.8 % (11.5-14.5)
[2016-11-12 04:41] LABS: Alanine Aminotransferase 14 Units/L (0-55); Albumin/Globulin Ratio 0.6 (1.1-2.2); Alkaline Phosphatase 65 Units/L (38-126); Aspartate Amino Transferase 20 Units/L (5-34); BUN/Creatinine Ratio 54 (6-26); Bilirubin,Total 0.4 mg/dL (0.2-1.2); Blood Urea Nitrogen 45 mg/dL (8-26); Calcium 8.6 mg/dL (8.6-10.8); Chloride 92 mEq/L (98-109); Globulin 3.2 g/dL (2.4-3.5); Glucose 133 mg/dL (70-99); Magnesium 2.3 mg/dL (1.6-2.6); Osmolality,Calculated 305 (280-300); Phosphorous 2.4 mg/dL (2.3-4.7); Potassium 3.8 mEq/L (3.5-4.5); Sodium 141 mEq/L (136-145); Total Protein 5.2 g/dL (6.0-8.3); eGFR For African Americans > 60 (> 60); eGFR For Non-African Americans > 60 (> 60)
[2016-11-12 04:43] LABS: Carbon Dioxide 40 mEq/L (19-29)
[2016-11-12 04:57] LABS: Ionized Calcium 1.13 mmol/L (1.15-1.35)
[2016-11-12 05:35] LABS: Hypochromasia Present (Not Present); Lymphocytes # 1.6 K/mcL (0.6-4.6); Monocytes # 1.2 K/mcL (0.0-1.3); Platelet Estimate Normal (Normal)
[2016-11-12 05:57] LABS: ABG Base Excess 26.6 mEq/L (-2.0 to 3.0); ABG HCO3 52.2 mEQ/L (21-27); ABG Oxygen Saturation 95 % (95-98); ABG PCO2 57 mmHg (35-45); ABG PH 7.57 pH Units (7.32-7.45); ABG PO2 66 mmHg (85-104); ABG TCO2 53.9 mEq/L (20-26)
[2016-11-12 05:58] LABS: Blood Gas FiO2 50 %
[2016-11-12] MEDS: Chlorhexidine Rinse 15 ML MOUTHWASH MM SCH ×2 (07:34→21:16)
[2016-11-12] MEDS: predniSONE 20 MG TABLET PO SCH (07:34)
[2016-11-12] MEDS: Pantoprazole 40 MG VIAL IVP SCH (07:34)
[2016-11-12] MEDS: *HR* Heparin 5,000 UNIT/ML VIAL SQ SCH ×3 (07:35→23:49)
--- NOTE | 2016-11-12 08:01 | Pulmonology Progress Note ---
Date of Encounter: 11/12/16 Time of Encounter: 07:59 Assessment and Plan (1) Acute respiratory failure with hypercapnia Current Visit: Yes Status: Acute (2) Pneumonia Current Visit: Yes Status: Acute Qualifiers: Pneumonia type: due to Pneumococcus Laterality: right Lung location: lower lobe of lung Qualified Code(s): J13 - Pneumonia due to Streptococcus pneumoniae (3) Encephalopathy Current Visit: Yes Status: Acute (4) COPD exacerbation Current Visit: Yes Status: Acute Subjective Principal diagnosis: Acute Resp Failure Interval history: No acute overnight events. Less agitation noted. Alkalosis noted on morning ABG, and minute ventilation was decreased. Objective PUL Vital signs: Last Vital Signs Temp 97.0 F L 11/12/16 07:45 Pulse 65 11/12/16 07:00 Resp 14 11/12/16 07:00 BP 128/66 11/12/16 07:00 Pulse Ox 98 11/12/16 07:00 General: Acutely and chronically ill-appearing, intubated and sedated Eyes: nonicteric ENT: Endotracheal tube in place Neck: supple, no lymphadenopathy Lungs: Coarse bilateral breath sounds Cardiovascular: regular rate and rhythm Gastrointestinal: normoactive bowel sounds, soft, non-tender, non-distended Integumentary: normal Extremities: no cyanosis, no edema Musculoskeletal: no deformities Neuro: Sedated Ventilator Settings Ventilator Settings: Ventilator Settings, Last 8 Hours Ventilator Mode A/C Ventilator Mode A/C Ventilator Mode A/C Ventilator Mode A/C Ventilator Mode A/C Ventilator Mode A/C Ventilator Mode A/C Ventilator Mode A/C Ventilator Mode A/C Ventilator Mode A/C Ventilator Mode A/C Ventilator Mode A/C Ventilator Mode A/C Ventilator Tidal Volume 500 Setting Ventilator Tidal Volume 500 Setting Ventilator Tidal Volume 500 Setting Ventilator Tidal Volume 500 Setting Ventilator Tidal Volume 500 Setting Ventilator Tidal Volume 500 Setting Ventilator Tidal Volume 500 Setting Ventilator Tidal Volume 500 Setting Ventilator Tidal Volume 500 Setting Ventilator Tidal Volume 500 Setting Ventilator Tidal Volume 500 Setting Ventilator Tidal Volume 500 Setting Ventilator Tidal Volume 500 Setting Ventilator Respiratory Rate 14 Setting Ventilator Respiratory Rate 14 Setting Ventilator Respiratory Rate 18 Setting Ventilator Respiratory Rate 18 Setting Ventilator Respiratory Rate 18 Setting Ventilator Respiratory Rate 18 Setting Ventilator Respiratory Rate 18 Setting Ventilator Respiratory Rate 18 Setting Ventilator Respiratory Rate 18 Setting Ventilator Respiratory Rate 18 Setting Ventilator Respiratory Rate 18 Setting Ventilator Respiratory Rate 18 Setting Ventilator Respiratory Rate 18 Setting Ventilator Respiratory Rate 18 Setting Actual Respiratory Rate 14 Actual Respiratory Rate 18 Actual Respiratory Rate 18 Actual Respiratory Rate 18 Actual Respiratory Rate 18 Actual Respiratory Rate 18 Actual Respiratory Rate 18 Actual Respiratory Rate 18 Actual Respiratory Rate 18 Actual Respiratory Rate 18 Actual Respiratory Rate 18 Actual Respiratory Rate 18 Positive End Expiratory 5 Pressure Positive End Expiratory 5 Pressure Positive End Expiratory 5 Pressure Positive End Expiratory 5 Pressure Positive End Expiratory 5 Pressure Positive End Expiratory 5 Pressure Positive End Expiratory 5 Pressure Positive End Expiratory 5 Pressure Positive End Expiratory 5 Pressure Positive End Expiratory 5 Pressure Positive End Expiratory 5 Pressure Positive End Expiratory 5 Pressure Positive End Expiratory 5 Pressure Peak Inspiratory Airway 24 Pressure Peak Inspiratory Airway 28 Pressure Peak Inspiratory Airway 27 Pressure Peak Inspiratory Airway 28 Pressure Peak Inspiratory Airway 27 Pressure Peak Inspiratory Airway 26 Pressure Peak Inspiratory Airway 28 Pressure Peak Inspiratory Airway 27 Pressure Peak Inspiratory Airway 27 Pressure Peak Inspiratory Airway 27 Pressure Peak Inspiratory Airway 25 Pressure Peak Inspiratory Airway 29 Pressure Results - Laboratory Findings CBC and BMP: 11/12/16 04:06 11/12/16 04:06 ABG ABG pH 7.57 pH Units (7.32-7.45) H 11/12/16 05:48 ABG pCO2 57 mmHg (35-45) H 11/12/16 05:48 ABG pO2 66 mmHg (85-104) L 11/12/16 05:48 ABG O2 Saturation 95 % (95-98) 11/12/16 05:48 PT/INR, D-dimer PT 12.6 Seconds (9.4-12.1) H 11/10/16 07:23 Abnormal lab findings: Abnormal lab results RBC 3.81 M/mcL (4.19-5.50) L 11/12/16 04:06 Hgb 11.1 g/dL (12.9-16.9) L 11/12/16 04:06 Hct 32.6 % (37.5-50.1) L 11/12/16 04:06 RDW 14.8 % (11.5-14.5) H 11/12/16 04:06 Immature Gran % 4.7 % (0-4) H 11/11/16 02:42 Nucleated RBCs/100 WBC 0.3 /100 WBC (0) H 11/11/16 02:42 Hypochromasia Present (Not Present) A 11/12/16 04:06 PT 12.6 Seconds (9.4-12.1) H 11/10/16 07:23 APTT 17.4 Seconds (26.0-36.0) L 11/10/16 07:23 ABG pH 7.57 pH Units (7.32-7.45) H 11/12/16 05:48 ABG pCO2 57 mmHg (35-45) H 11/12/16 05:48 ABG pO2 66 mmHg (85-104) L 11/12/16 05:48 ABG HCO3 52.2 mEQ/L (21-27) H 11/12/16 05:48 ABG Total CO2 53.9 mEq/L (20-26) H 11/12/16 05:48 ABG Base Excess 26.6 mEq/L (-2.0 to 3.0) H 11/12/16 05:48 Chloride 92 mEq/L (98-109) L 11/12/16 04:06 Carbon Dioxide 40 mEq/L (19-29) H* 11/12/16 04:06 BUN 45 mg/dL (8-26) H 11/12/16 04:06 BUN/Creatinine Ratio 54 (6-26) H 11/12/16 04:06 Glucose 133 mg/dL (70-99) H 11/12/16 04:06 POC Glucose 258 (58-89) H 11/12/16 00:01 Calculated Osmolality 305 (280-300) H 11/12/16 04:06 Ionized Calcium 1.13 mmol/L (1.15-1.35) L 11/12/16 04:06 Troponin I 0.04 ng/mL (0-0.03) H* 11/10/16 07:23 B-Natriuretic Peptide 167 pg/mL (0-100) H 11/10/16 07:23 Serum Total Protein 5.2 g/dL (6.0-8.3) L 11/12/16 04:06 Albumin 2.0 g/dL (3.5-5.0) L 11/12/16 04:06 Albumin/Globulin Ratio 0.6 (1.1-2.2) L 11/12/16 04:06 Urine Clarity Cloudy (Clear) A 11/10/16 06:59 Ur Specific [place] 1.028 (1.010-1.025) H 11/10/16 06:59 Urine Protein 100 mg/dL (Neg-Trace) H 11/10/16 06:59 Urine Ketones 15 mg/dL (Negative) H 11/10/16 06:59 Urine Blood Large (Negative) H 11/10/16 06:59 Urine Microscopic RBC TNTC per hpf (0-3) H 11/10/16 06:59 Urine Microscopic WBC 5-15 per hpf (0-3) H 11/10/16 06:59 Ur Squamous Epith Cells Many per lpf (None-Few) H 11/10/16 06:59 Ur Culture Indicated? YES (NO) A 11/10/16 06:59 Vancomycin Trough 4.5 mcg/mL (10-20) L 11/10/16 07:40 - Microbiology Findings Microbiology Findings: Microbiology, Last 48 Hours 11/10/16 16:35 Sputum Culture - Preliminary Sputum - Clinical Findings Intake & Output: Intake & Output 11/11/16 11/11/16 11/12/16 15:59 23:59 07:59 Intake Total 1002 / 1002 562 / 562 645 / 645 Output Total 850 / 850 850 / 850 925 / 925 Balance 152 / 152 -288 / -288 -280 / -280 Weight 72.1 kg 73.482 kg Consult Discharge Plan - Plan Referrals: NO,PCP [Primary Care Provider] -
[2016-11-12 09:13] LABS: ABG Base Excess 23.1 mEq/L (-2.0 to 3.0); ABG HCO3 51.2 mEQ/L (21-27); ABG Oxygen Saturation 86 % (95-98); ABG PCO2 72 mmHg (35-45); ABG PH 7.46 pH Units (7.32-7.45); ABG TCO2 53.4 mEq/L (20-26); Blood Gas VT 500 cc
[2016-11-12 09:14] LABS: ABG PO2 48 mmHg (85-104)
[2016-11-12] MEDS ORDERED: FENTANYL IVC SCH (09:15)
[2016-11-12] MEDS ORDERED: SODIUM CHLORIDE 0.9% IVC SCH (09:15)
[2016-11-12] MEDS: FentaNYL (PF) 3,000 MCG in 0.9 % Sodium Chloride 240 ML IVC SCH (10:54)
--- NOTE | 2016-11-12 19:29 | Electrocardiograph Report ---
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
[2016-11-13] MEDS: Insulin LISPRO 300 UNITS/3 ML VIAL SQ SCH ×4 (00:59→17:12)
[2016-11-13] MEDS: FentaNYL (PF) 3,000 MCG in 0.9 % Sodium Chloride 240 ML IVC SCH ×3 (01:54→15:20)
[2016-11-13] MEDS: Ipratropium/Albuterol Neb 3 ML IH SCH ×5 (03:17→20:24)
[2016-11-13 05:30] LABS: ABG Base Excess 20.7 mEq/L (-2.0 to 3.0); ABG HCO3 48.5 mEQ/L (21-27); ABG Oxygen Saturation 94 % (95-98); ABG PH 7.43 pH Units (7.32-7.45); ABG PO2 67 mmHg (85-104); ABG TCO2 50.7 mEq/L (20-26); Blood Gas FiO2 50 %
[2016-11-13 05:32] LABS: ABG PCO2 73 mmHg (35-45)
--- NOTE | 2016-11-13 06:06 | Pulmonology Progress Note ---
Date of Encounter: 11/13/16 Time of Encounter: 06:05 Assessment and Plan (1) Acute respiratory failure Current Visit: Yes Status: Acute Patient sedated and intubated on ventilator. Due to agitation, patient is in soft restraints of upper extremities and fully sedated. Acute respiratory failure secondary to pneumonia due to strep pneumoniae vs copd exacerbation. Continue ventilator support. PEEP 5, FiO2 5, rate 14, satting 94%. Vitals stable, bp slightly low with MAP 61-66. Continue duonebs and steroids. Continue Rocephin d3. Qualifiers: Respiratory failure complication: hypoxia and hypercapnia Qualified Code(s) : J96.01 - Acute respiratory failure with hypoxia; J96.02 - Acute respiratory failure with hypercapnia (2) Pneumonia Current Visit: Yes Status: Acute Continue per plan in assessment above. Qualifiers: Pneumonia type: due to Pneumococcus Laterality: right Lung location: lower lobe of lung Qualified Code(s): J13 - Pneumonia due to Streptococcus pneumoniae (3) COPD exacerbation Current Visit: Yes Status: Acute Continue per plan in assessment above. (4) Altered mental status Current Visit: Yes Status: Acute Likely secondary to acute respiratory failure secondary to pneumonia vs copd exacerbation vs icu delirium. Continue with seroquel. Continue telemetry. QTc within normal. Continue with serial EKG. Qualifiers: Altered mental status type: unspecified Qualified Code(s): R41.82 - Altered mental status, unspecified (5) Elevated troponin Current Visit: Yes Status: Acute (6) GERD (gastroesophageal reflux disease) Current Visit: Yes Status: Acute gi ppx with protonix. Qualifiers: Esophagitis presence: esophagitis presence not specified Qualified Code(s) : K21.9 - Gastro-esophageal reflux disease without esophagitis (7) Hepatitis C Current Visit: Yes Status: Acute History of Hepatitis C [facility]. No current therapy at this time. Qualifiers: Viral hepatitis chronicity: unspecified Hepatic coma status: without hepatic coma Qualified Code(s): B19.20 - Unspecified viral hepatitis C without hepatic coma (8) DVT prophylaxis Current Visit: Yes Status: Acute Heparin for dvt ppx. Subjective Principal diagnosis: Acute Resp Failure Interval history: Patient did well overnight. Sedated on ventilator. Soft restraints in place upper extremities. Vent at PEEP 5, FiO2 50%, rate 14 Objective PUL Vital signs: Last Vital Signs Temp 98.1 F 11/13/16 00:36 Pulse 68 11/13/16 02:16 Resp 14 11/13/16 05:15 BP 92/45 11/13/16 05:15 Pulse Ox 98 11/13/16 05:15 General appearance: other (sedated intubated on ventilator) Eyes: nonicteric Neck: supple Effort: normal Auscultation: left: clear, right: rhonchi (mild) Cardiovascular: regular rate and rhythm Gastrointestinal: normoactive bowel sounds, soft, non-distended Integumentary: normal Extremities: no cyanosis, no edema, pink and warm, pulses normal Musculoskeletal: no deformities non-focal exam, pupils equal and round Ventilator Settings Ventilator Settings: Ventilator Settings, Last 8 Hours Ventilator Mode VC+ Ventilator Mode VC+ Ventilator Mode VC+ Ventilator Mode VC+ Ventilator Mode VC+ Ventilator Mode VC+ Ventilator Mode VC+ Ventilator Mode VC+ Ventilator Mode VC+ Ventilator Tidal Volume 500 Setting Ventilator Tidal Volume 500 Setting Ventilator Tidal Volume 500 Setting Ventilator Tidal Volume 500 Setting Ventilator Tidal Volume 500 Setting Ventilator Tidal Volume 500 Setting Ventilator Tidal Volume 500 Setting Ventilator Tidal Volume 500 Setting Ventilator Tidal Volume 500 Setting Ventilator Respiratory Rate 14 Setting Ventilator Respiratory Rate 14 Setting Ventilator Respiratory Rate 14 Setting Ventilator Respiratory Rate 14 Setting Ventilator Respiratory Rate 14 Setting Ventilator Respiratory Rate 14 Setting Ventilator Respiratory Rate 14 Setting Ventilator Respiratory Rate 14 Setting Ventilator Respiratory Rate 14 Setting Actual Respiratory Rate 14 Actual Respiratory Rate 14 Actual Respiratory Rate 14 Actual Respiratory Rate 14 Actual Respiratory Rate 14 Actual Respiratory Rate 14 Actual Respiratory Rate 14 Actual Respiratory Rate 14 Positive End Expiratory 5 Pressure Positive End Expiratory 5 Pressure Positive End Expiratory 5 Pressure Positive End Expiratory 5 Pressure Positive End Expiratory 5 Pressure Positive End Expiratory 5 Pressure Positive End Expiratory 5 Pressure Positive End Expiratory 5 Pressure Positive End Expiratory 5 Pressure Peak Inspiratory Airway 25 Pressure Peak Inspiratory Airway 26 Pressure Peak Inspiratory Airway 25 Pressure Peak Inspiratory Airway 25 Pressure Peak Inspiratory Airway 25 Pressure Peak Inspiratory Airway 26 Pressure Peak Inspiratory Airway 24 Pressure Peak Inspiratory Airway 25 Pressure Results - Laboratory Findings CBC and BMP: 11/12/16 04:06 11/12/16 04:06 ABG ABG pH 7.43 pH Units (7.32-7.45) 11/13/16 05:20 ABG pCO2 73 mmHg (35-45) H* 11/13/16 05:20 ABG pO2 67 mmHg (85-104) L 11/13/16 05:20 ABG O2 Saturation 94 % (95-98) L 11/13/16 05:20 PT/INR, D-dimer PT 12.6 Seconds (9.4-12.1) H 11/10/16 07:23 Abnormal lab findings: Abnormal lab results RBC 3.81 M/mcL (4.19-5.50) L 11/12/16 04:06 Hgb 11.1 g/dL (12.9-16.9) L 11/12/16 04:06 Hct 32.6 % (37.5-50.1) L 11/12/16 04:06 RDW 14.8 % (11.5-14.5) H 11/12/16 04:06 Immature Gran % 4.7 % (0-4) H 11/11/16 02:42 Nucleated RBCs/100 WBC 0.3 /100 WBC (0) H 11/11/16 02:42 Hypochromasia Present (Not Present) A 11/12/16 04:06 PT 12.6 Seconds (9.4-12.1) H 11/10/16 07:23 APTT 17.4 Seconds (26.0-36.0) L 11/10/16 07:23 ABG pCO2 73 mmHg (35-45) H* 11/13/16 05:20 ABG pO2 67 mmHg (85-104) L 11/13/16 05:20 ABG HCO3 48.5 mEQ/L (21-27) H 11/13/16 05:20 ABG Total CO2 50.7 mEq/L (20-26) H 11/13/16 05:20 ABG O2 Saturation 94 % (95-98) L 11/13/16 05:20 ABG Base Excess 20.7 mEq/L (-2.0 to 3.0) H 11/13/16 05:20 Chloride 92 mEq/L (98-109) L 11/12/16 04:06 Carbon Dioxide 40 mEq/L (19-29) H* 11/12/16 04:06 BUN 45 mg/dL (8-26) H 11/12/16 04:06 BUN/Creatinine Ratio 54 (6-26) H 11/12/16 04:06 Glucose 133 mg/dL (70-99) H 11/12/16 04:06 POC Glucose 195 (58-89) H 11/13/16 00:25 Calculated Osmolality 305 (280-300) H 11/12/16 04:06 Ionized Calcium 1.13 mmol/L (1.15-1.35) L 11/12/16 04:06 Troponin I 0.04 ng/mL (0-0.03) H* 11/10/16 07:23 B-Natriuretic Peptide 167 pg/mL (0-100) H 11/10/16 07:23 Serum Total Protein 5.2 g/dL (6.0-8.3) L 11/12/16 04:06 Albumin 2.0 g/dL (3.5-5.0) L 11/12/16 04:06 Albumin/Globulin Ratio 0.6 (1.1-2.2) L 11/12/16 04:06 Urine Clarity Cloudy (Clear) A 11/10/16 06:59 Ur Specific [place] 1.028 (1.010-1.025) H 11/10/16 06:59 Urine Protein 100 mg/dL (Neg-Trace) H 11/10/16 06:59 Urine Ketones 15 mg/dL (Negative) H 11/10/16 06:59 Urine Blood Large (Negative) H 11/10/16 06:59 Urine Microscopic RBC TNTC per hpf (0-3) H 11/10/16 06:59 Urine Microscopic WBC 5-15 per hpf (0-3) H 11/10/16 06:59 Ur Squamous Epith Cells Many per lpf (None-Few) H 11/10/16 06:59 Ur Culture Indicated? YES (NO) A 11/10/16 06:59 Vancomycin Trough 4.5 mcg/mL (10-20) L 11/10/16 07:40 - Microbiology Findings Microbiology Findings: Microbiology, Last 48 Hours 11/10/16 16:35 Sputum Culture - Final Sputum - Clinical Findings Intake & Output: Intake & Output 11/12/16 11/12/16 11/13/16 15:59 23:59 07:59 Intake Total 857 / 857 728 / 728 359 / 359 Output Total 575 / 575 650 / 650 250 / 250 Balance 282 / 282 78 / 78 109 / 109 Weight 75.948 kg 76.793 kg Consult Discharge Plan - Plan Referrals: NO,PCP [Primary Care Provider] -
[2016-11-13] MEDS: *HR* Heparin 5,000 UNIT/ML VIAL SQ SCH ×2 (06:53→13:58)
[2016-11-13] MEDS: Pantoprazole 40 MG VIAL IVP SCH (07:05)
[2016-11-13] MEDS: Chlorhexidine Rinse 15 ML MOUTHWASH MM SCH ×2 (07:05→20:00)
[2016-11-13] MEDS: predniSONE 20 MG TABLET PO SCH (07:05)
[2016-11-13] MEDS: Dexmedetomidine HCl 400 MCG/100 ML MLS IVC SCH ×3 (08:25→18:20)
[2016-11-13] MEDS: Docusate Oral Soln 100 MG/10 ML UDC GTUBE SCH ×2 (11:40→20:45)
--- NOTE | 2016-11-13 17:32 | Electrocardiograph Report ---
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
--- NOTE | 2016-11-13 17:45 | Electrocardiograph Report ---
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
[2016-11-14] MEDS: Ipratropium/Albuterol Neb 3 ML IH SCH ×6 (00:34→19:57)
[2016-11-14] MEDS: Insulin LISPRO 300 UNITS/3 ML VIAL SQ SCH ×4 (00:37→18:12)
[2016-11-14] MEDS: *HR* Heparin 5,000 UNIT/ML VIAL SQ SCH ×3 (00:38→13:59)
[2016-11-14] MEDS: Dexmedetomidine HCl 400 MCG/100 ML MLS IVC SCH ×3 (02:37→16:34)
[2016-11-14 04:12] LABS: Ionized Calcium 1.14 mmol/L (1.15-1.35)
[2016-11-14 04:19] LABS: BUN/Creatinine Ratio 48 (6-26); Calcium 8.5 mg/dL (8.6-10.8); Carbon Dioxide 37 mEq/L (19-29); Chloride 100 mEq/L (98-109); Glucose 161 mg/dL (70-99); Osmolality,Calculated 306 (280-300); Sodium 143 mEq/L (136-145); eGFR For African Americans > 60 (> 60); eGFR For Non-African Americans > 60 (> 60)
[2016-11-14 04:21] LABS: Blood Urea Nitrogen 30 mg/dL (8-26); Phosphorous 4.4 mg/dL (2.3-4.7); Potassium 4.9 mEq/L (3.5-4.5)
[2016-11-14] MEDS: FentaNYL (PF) 3,000 MCG in 0.9 % Sodium Chloride 240 ML IVC SCH ×2 (06:50→23:36)
--- NOTE | 2016-11-14 06:54 | Pulmonology Progress Note ---
Date of Encounter: 11/14/16 Time of Encounter: 06:54 Assessment and Plan (1) Acute respiratory failure Current Visit: Yes Status: Acute Acute on chronic respiratory failure with hypoxia and hypercapnia. This is likely due to advanced COPD coupled with a COPD exacerbation secondary to pneumococcal pneumonia as strep pneumo antigen was positive. Patient required intubation in the ED due to progressive respiratory distress causing hypoxia and hypercapnia, confusion/agitation and inability to protect his airway. Patient has remained restrained, intubated/sedated/on ventilator since failed BiPAP. Most recent Blood gas obtained on 11/13/16 demonstrated pH 7.43, PCO2 of 73, PaO2 67. Patient exhibits extreme agitation: contributory factors may include encephalopathy due to strep pneumo/infection/sepsis, ICU delirium, possible underlying baseline mood imbalance disorder/dementia. Continue ventilator support. PEEP of 5, FiO2 of 5, rate of 14, oxygen saturation currently at 94%, map goal 61-66. Vitals are stable. Continue duo nebs and steroids. Continue Rocephin day 4. Qualifiers: Respiratory failure complication: hypoxia and hypercapnia Qualified Code(s) : J96.01 - Acute respiratory failure with hypoxia; J96.02 - Acute respiratory failure with hypercapnia (2) Pneumonia Current Visit: Yes Status: Acute Continue plan per assessment above. Qualifiers: Pneumonia type: due to Pneumococcus Laterality: right Lung location: lower lobe of lung Qualified Code(s): J13 - Pneumonia due to Streptococcus pneumoniae (3) COPD exacerbation Current Visit: Yes Status: Acute Continue plan per assessment above. (4) Encephalopathy Current Visit: Yes Status: Acute Likely multifactorial potentially due to acute respiratory failure secondary to pneumonia or COPD exacerbation versus ICU delirium versus underlying psychologic or neurologic issues. Continue Seroquel Continue telemetry Continue serial EKGs: QT/QTc within normal limits Subjective Principal diagnosis: Acute Resp Failure Interval history: Patient did not have any episodes of delirium or agitation overnight. It was learned earlier this morning however that patient has chronic hip and pelvic pain and does drink alcohol daily with Ativan. No signs of withdrawal. Patient 's vitals remained stable overnight he is being kept on Seroquel. No attempts were made to reduce the level of sedation overnight due to previous severe agitation of the patient. We will keep the patient, sedated for patients comfort while continuing supportive therapies and antibiotics to treat the underlying condition. Objective PUL Vital signs: Last Vital Signs Temp 98.2 F 11/14/16 05:00 Pulse 52 11/14/16 06:00 Resp 14 11/14/16 06:11 BP 130/67 11/14/16 06:00 Pulse Ox 98 11/14/16 06:11 General appearance: no acute distress, other (Patient is sedated, intubated, on a ventilator) Eyes: nonicteric ENT: oropharynx moist Neck: supple Effort: normal Auscultation: bilateral: diminished breath sounds, rhonchi Cardiovascular: regular rate and rhythm Gastrointestinal: normoactive bowel sounds, soft, non-tender, non-distended Integumentary: normal Extremities: no cyanosis, no edema, pink and warm Musculoskeletal: no deformities non-focal exam, pupils equal and round Ventilator Settings Ventilator Settings: Ventilator Settings, Last 8 Hours Ventilator Mode VC+ Ventilator Mode VC+ Ventilator Mode VC+ Ventilator Mode VC+ Ventilator Tidal Volume 500 Setting Ventilator Tidal Volume 500 Setting Ventilator Tidal Volume 500 Setting Ventilator Respiratory Rate 14 Setting Ventilator Respiratory Rate 14 Setting Ventilator Respiratory Rate 14 Setting Ventilator Respiratory Rate 14 Setting Actual Respiratory Rate 14 Actual Respiratory Rate 14 Actual Respiratory Rate 14 Actual Respiratory Rate 14 Positive End Expiratory 5 Pressure Positive End Expiratory 5 Pressure Positive End Expiratory 5 Pressure Positive End Expiratory 5 Pressure Peak Inspiratory Airway 25 Pressure Peak Inspiratory Airway 25 Pressure Peak Inspiratory Airway 24 Pressure Results - Laboratory Findings CBC and BMP: 11/12/16 04:06 11/14/16 04:00 ABG ABG pH 7.43 pH Units (7.32-7.45) 11/13/16 05:20 ABG pCO2 73 mmHg (35-45) H* 11/13/16 05:20 ABG pO2 67 mmHg (85-104) L 11/13/16 05:20 ABG O2 Saturation 94 % (95-98) L 11/13/16 05:20 PT/INR, D-dimer PT 12.6 Seconds (9.4-12.1) H 11/10/16 07:23 Abnormal lab findings: Abnormal lab results RBC 3.81 M/mcL (4.19-5.50) L 11/12/16 04:06 Hgb 11.1 g/dL (12.9-16.9) L 11/12/16 04:06 Hct 32.6 % (37.5-50.1) L 11/12/16 04:06 RDW 14.8 % (11.5-14.5) H 11/12/16 04:06 Immature Gran % 4.7 % (0-4) H 11/11/16 02:42 Nucleated RBCs/100 WBC 0.3 /100 WBC (0) H 11/11/16 02:42 Hypochromasia Present (Not Present) A 11/12/16 04:06 PT 12.6 Seconds (9.4-12.1) H 11/10/16 07:23 APTT 17.4 Seconds (26.0-36.0) L 11/10/16 07:23 ABG pCO2 73 mmHg (35-45) H* 11/13/16 05:20 ABG pO2 67 mmHg (85-104) L 11/13/16 05:20 ABG HCO3 48.5 mEQ/L (21-27) H 11/13/16 05:20 ABG Total CO2 50.7 mEq/L (20-26) H 11/13/16 05:20 ABG O2 Saturation 94 % (95-98) L 11/13/16 05:20 ABG Base Excess 20.7 mEq/L (-2.0 to 3.0) H 11/13/16 05:20 Potassium 4.9 mEq/L (3.5-4.5) H D 11/14/16 04:00 Carbon Dioxide 37 mEq/L (19-29) H 11/14/16 04:00 BUN 30 mg/dL (8-26) H D 11/14/16 04:00 Creatinine 0.63 mg/dL (0.72-1.25) L 11/14/16 04:00 BUN/Creatinine Ratio 48 (6-26) H 11/14/16 04:00 Glucose 161 mg/dL (70-99) H 11/14/16 04:00 POC Glucose 194 (58-89) H 11/14/16 00:23 Calculated Osmolality 306 (280-300) H 11/14/16 04:00 Calcium 8.5 mg/dL (8.6-10.8) L 11/14/16 04:00 Ionized Calcium 1.14 mmol/L (1.15-1.35) L 11/14/16 04:00 Troponin I 0.04 ng/mL (0-0.03) H* 11/10/16 07:23 B-Natriuretic Peptide 167 pg/mL (0-100) H 11/10/16 07:23 Serum Total Protein 5.2 g/dL (6.0-8.3) L 11/12/16 04:06 Albumin 2.0 g/dL (3.5-5.0) L 11/12/16 04:06 Albumin/Globulin Ratio 0.6 (1.1-2.2) L 11/12/16 04:06 Urine Clarity Cloudy (Clear) A 11/10/16 06:59 Ur Specific [place] 1.028 (1.010-1.025) H 11/10/16 06:59 Urine Protein 100 mg/dL (Neg-Trace) H 11/10/16 06:59 Urine Ketones 15 mg/dL (Negative) H 11/10/16 06:59 Urine Blood Large (Negative) H 11/10/16 06:59 Urine Microscopic RBC TNTC per hpf (0-3) H 11/10/16 06:59 Urine Microscopic WBC 5-15 per hpf (0-3) H 11/10/16 06:59 Ur Squamous Epith Cells Many per lpf (None-Few) H 11/10/16 06:59 Ur Culture Indicated? YES (NO) A 11/10/16 06:59 Vancomycin Trough 4.5 mcg/mL (10-20) L 11/10/16 07:40 - Microbiology Findings Microbiology Findings: Microbiology, Last 48 Hours 11/10/16 16:35 Sputum Culture - Final Sputum - Clinical Findings Intake & Output: Intake & Output 11/13/16 11/13/16 11/14/16 15:59 23:59 07:59 Intake Total 832 / 832 546 / 546 1132 / 1132 Output Total 250 / 250 650 / 650 650 / 650 Balance 582 / 582 -104 / -104 482 / 482 Weight 76.748 kg 75.523 kg Consult Discharge Plan - Plan Referrals: NO,PCP [Primary Care Provider] -
[2016-11-14] MEDS: Docusate Oral Soln 100 MG/10 ML UDC GTUBE SCH ×2 (07:40→21:12)
[2016-11-14] MEDS: Chlorhexidine Rinse 15 ML MOUTHWASH MM SCH ×2 (07:40→21:12)
[2016-11-14] MEDS: Pantoprazole 40 MG VIAL IVP SCH (07:40)
[2016-11-14] MEDS: predniSONE 20 MG TABLET PO SCH (07:43)
[2016-11-14] MEDS ORDERED: Bisacodyl 10 MG RECTAL SUPPOSITORY RC PRN (08:12)
--- NOTE | 2016-11-14 08:58 | Event Note ---
Date of Encounter: 11/14/16 Time of Encounter: 08:54 Patient examined, chart and all data reviewed as well as recent imaging studies the patient suffers from acute on chronic respiratory failure with hypoxia and hypercapnia due to advanced COPD as well as pneumococcal pneumonia and bacteremia. Patient also suffers from significant delirium agitation necessitating use of propofol, Precedex and fentanyl infusions. Any attempt to reduce the level of sedation immediately results and severe agitation (biting of the endotracheal tube sitting up in bed flailing of extremities). The patient remains on full low-level ventilatory support. For treatment of severe COPD the patient continues to receive bronchodilators, systemic steroids. Antibiotic therapy includes Rocephin, anticipating a 10 day course in total. The patient also continues to receive appropriate prophylaxis for DVT ulcer and is tolerant of tube feedings. It is possible that the patient will not wean from ventilatory support may require tracheostomy and feeding tube placement unless the sun changes goals of care. Overall, I think the patient has a poor prognosis for full meaningful independent recovery based on performance status as well as multiple comorbidities and the advanced nature of underlying COPD. 35 minutes of critical care time required for the evaluation and management of this patient including provision of mechanical ventilatory support for respiratory failure as well as review and management of severe delirium necessitating the current use of 3 infusion agents. [place] [phone]
[2016-11-14] MEDS ORDERED: Calcium Gluconate 2,000 MG in D5% in Water 100 ML IVPB ONE (15:23)
[2016-11-15] MEDS: Insulin LISPRO 300 UNITS/3 ML VIAL SQ SCH ×4 (00:17→19:34)
[2016-11-15] MEDS: *HR* Heparin 5,000 UNIT/ML VIAL SQ SCH ×4 (00:17→21:59)
[2016-11-15] MEDS: Ipratropium/Albuterol Neb 3 ML IH SCH ×6 (00:19→20:02)
[2016-11-15 03:20] LABS: Ionized Calcium 1.17 mmol/L (1.15-1.35)
[2016-11-15 03:29] LABS: Alanine Aminotransferase 13 Units/L (0-55); Albumin/Globulin Ratio 0.6 (1.1-2.2); Alkaline Phosphatase 55 Units/L (38-126); Aspartate Amino Transferase 12 Units/L (5-34); BUN/Creatinine Ratio 52 (6-26); Bilirubin,Total 0.3 mg/dL (0.2-1.2); Blood Urea Nitrogen 34 mg/dL (8-26); Calcium 8.6 mg/dL (8.6-10.8); Carbon Dioxide 36 mEq/L (19-29); Chloride 100 mEq/L (98-109); Globulin 3.1 g/dL (2.4-3.5); Glucose 144 mg/dL (70-99); Magnesium 1.6 mg/dL (1.6-2.6); Osmolality,Calculated 304 (280-300); Phosphorous 3.3 mg/dL (2.3-4.7); Potassium 4.8 mEq/L (3.5-4.5); Sodium 142 mEq/L (136-145); Total Protein 4.9 g/dL (6.0-8.3); eGFR For African Americans > 60 (> 60); eGFR For Non-African Americans > 60 (> 60)
[2016-11-15 03:31] LABS: Albumin 1.8 g/dL (3.5-5.0)
[2016-11-15] MEDS ORDERED: Magnesium Sulfate 1 GM in D5% in Water 100 ML IVPB ONE (06:40)
--- NOTE | 2016-11-15 06:56 | Pulmonology Progress Note ---
Date of Encounter: 11/15/16 Time of Encounter: 06:50 Assessment and Plan (1) Acute respiratory failure Current Visit: Yes Status: Acute Patient sedated and intubated on ventilator. Easily arousable with extremity movement, spontaneous eye opening despite high sedation. Due to agitation, patient is in soft restraints of upper extremities and fully sedated. Mild improvements seen of Right lung compared to cxr on 11/11/16 despite increased wheezing b/l and heavy rhonchi on right. Acute respiratory failure secondary to pneumonia due to strep pneumoniae vs copd exacerbation. Continue ventilator support. PEEP 5, FiO2 40%, rate 14, satting 98%. Vitals stable, bp slightly low with MAP 61-67. Continue duonebs and steroids. Continue Rocephin d5/10 Qualifiers: Respiratory failure complication: hypoxia and hypercapnia Qualified Code(s) : J96.01 - Acute respiratory failure with hypoxia; J96.02 - Acute respiratory failure with hypercapnia (2) Pneumonia Current Visit: Yes Status: Acute Continue per plan in assessment above. Qualifiers: Pneumonia type: due to Pneumococcus Laterality: right Lung location: lower lobe of lung Qualified Code(s): J13 - Pneumonia due to Streptococcus pneumoniae (3) COPD exacerbation Current Visit: Yes Status: Acute Continue per plan in assessment above. (4) Encephalopathy Current Visit: Yes Status: Acute Likely secondary to acute respiratory failure secondary to pneumonia vs copd exacerbation vs icu delirium. Patient also has history of alcohol abuse and Ativan usage. Continue with seroquel. Continue telemetry. QTc within normal on serial EKG. (5) Elevated troponin Current Visit: Yes Status: Acute (6) GERD (gastroesophageal reflux disease) Current Visit: Yes Status: Acute gi ppx with protonix. Qualifiers: Esophagitis presence: esophagitis presence not specified Qualified Code(s) : K21.9 - Gastro-esophageal reflux disease without esophagitis (7) Hepatitis C Current Visit: Yes Status: Acute History of Hepatitis C [facility]. No current therapy at this time. Qualifiers: Viral hepatitis chronicity: unspecified Hepatic coma status: without hepatic coma Qualified Code(s): B19.20 - Unspecified viral hepatitis C without hepatic coma (8) DVT prophylaxis Current Visit: Yes Status: Acute Heparin for dvt ppx. Subjective Principal diagnosis: Acute Resp Failure Interval history: Patient did well overnight. Attempts to reduce sedation results in severe agitation. Patient easily arousable on sedation, moves all extremities. 2 point upper extremity restraints in place Vent at rate 14, PEEP 5, FiO2 50% Vitals stable overnight Good urine output with cath, had soft bowel movement yesterday, continuing tube feeds. Objective PUL Vital signs: Last Vital Signs Temp 98.6 F 11/15/16 03:00 Pulse 58 11/15/16 06:00 Resp 14 11/15/16 06:07 BP 90/44 11/15/16 06:07 Pulse Ox 99 11/15/16 06:07 General appearance: other (sedated on ventilator support, easily arousable spontaneous eye opening and extremity movement, agitation requiring two point restraints) Eyes: nonicteric Neck: supple Effort: normal Auscultation: right: rhonchi, bilateral: wheezes Cardiovascular: regular rate and rhythm Gastrointestinal: normoactive bowel sounds, soft, non-distended Integumentary: normal Extremities: no cyanosis Musculoskeletal: no deformities non-focal exam, pupils equal and round Ventilator Settings Ventilator Settings: Ventilator Settings, Last 8 Hours Ventilator Mode VC+ Ventilator Mode VC+ Ventilator Mode VC+ Ventilator Mode VC+ Ventilator Mode VC+ Ventilator Mode VC+ Ventilator Tidal Volume 500 Setting Ventilator Tidal Volume 500 Setting Ventilator Tidal Volume 500 Setting Ventilator Tidal Volume 500 Setting Ventilator Tidal Volume 500 Setting Ventilator Tidal Volume 500 Setting Ventilator Respiratory Rate 14 Setting Ventilator Respiratory Rate 14 Setting Ventilator Respiratory Rate 14 Setting Ventilator Respiratory Rate 14 Setting Ventilator Respiratory Rate 14 Setting Ventilator Respiratory Rate 14 Setting Actual Respiratory Rate 14 Actual Respiratory Rate 14 Actual Respiratory Rate 14 Actual Respiratory Rate 17 Actual Respiratory Rate 14 Actual Respiratory Rate 14 Positive End Expiratory 5 Pressure Positive End Expiratory 5 Pressure Positive End Expiratory 5 Pressure Positive End Expiratory 5 Pressure Positive End Expiratory 5 Pressure Positive End Expiratory 5 Pressure Peak Inspiratory Airway 25 Pressure Peak Inspiratory Airway 25 Pressure Peak Inspiratory Airway 26 Pressure Peak Inspiratory Airway 29 Pressure Peak Inspiratory Airway 25 Pressure Peak Inspiratory Airway 25 Pressure Results - Laboratory Findings CBC and BMP: 11/12/16 04:06 11/15/16 03:00 ABG ABG pH 7.43 pH Units (7.32-7.45) 11/13/16 05:20 ABG pCO2 73 mmHg (35-45) H* 11/13/16 05:20 ABG pO2 67 mmHg (85-104) L 11/13/16 05:20 ABG O2 Saturation 94 % (95-98) L 11/13/16 05:20 PT/INR, D-dimer PT 12.6 Seconds (9.4-12.1) H 11/10/16 07:23 Abnormal lab findings: Abnormal lab results RBC 3.81 M/mcL (4.19-5.50) L 11/12/16 04:06 Hgb 11.1 g/dL (12.9-16.9) L 11/12/16 04:06 Hct 32.6 % (37.5-50.1) L 11/12/16 04:06 RDW 14.8 % (11.5-14.5) H 11/12/16 04:06 Immature Gran % 4.7 % (0-4) H 11/11/16 02:42 Nucleated RBCs/100 WBC 0.3 /100 WBC (0) H 11/11/16 02:42 Hypochromasia Present (Not Present) A 11/12/16 04:06 PT 12.6 Seconds (9.4-12.1) H 11/10/16 07:23 APTT 17.4 Seconds (26.0-36.0) L 11/10/16 07:23 ABG pCO2 73 mmHg (35-45) H* 11/13/16 05:20 ABG pO2 67 mmHg (85-104) L 11/13/16 05:20 ABG HCO3 48.5 mEQ/L (21-27) H 11/13/16 05:20 ABG Total CO2 50.7 mEq/L (20-26) H 11/13/16 05:20 ABG O2 Saturation 94 % (95-98) L 11/13/16 05:20 ABG Base Excess 20.7 mEq/L (-2.0 to 3.0) H 11/13/16 05:20 Potassium 4.8 mEq/L (3.5-4.5) H 11/15/16 03:00 Carbon Dioxide 36 mEq/L (19-29) H 11/15/16 03:00 BUN 34 mg/dL (8-26) H 11/15/16 03:00 Creatinine 0.65 mg/dL (0.72-1.25) L 11/15/16 03:00 BUN/Creatinine Ratio 52 (6-26) H 11/15/16 03:00 Glucose 144 mg/dL (70-99) H 11/15/16 03:00 POC Glucose 123 (58-89) H 11/14/16 23:56 Calculated Osmolality 304 (280-300) H 11/15/16 03:00 Troponin I 0.04 ng/mL (0-0.03) H* 11/10/16 07:23 B-Natriuretic Peptide 167 pg/mL (0-100) H 11/10/16 07:23 Serum Total Protein 4.9 g/dL (6.0-8.3) L 11/15/16 03:00 Albumin 1.8 g/dL (3.5-5.0) L 11/15/16 03:00 Albumin/Globulin Ratio 0.6 (1.1-2.2) L 11/15/16 03:00 Urine Clarity Cloudy (Clear) A 11/10/16 06:59 Ur Specific [place] 1.028 (1.010-1.025) H 11/10/16 06:59 Urine Protein 100 mg/dL (Neg-Trace) H 11/10/16 06:59 Urine Ketones 15 mg/dL (Negative) H 11/10/16 06:59 Urine Blood Large (Negative) H 11/10/16 06:59 Urine Microscopic RBC TNTC per hpf (0-3) H 11/10/16 06:59 Urine Microscopic WBC 5-15 per hpf (0-3) H 11/10/16 06:59 Ur Squamous Epith Cells Many per lpf (None-Few) H 11/10/16 06:59 Ur Culture Indicated? YES (NO) A 11/10/16 06:59 Vancomycin Trough 4.5 mcg/mL (10-20) L 11/10/16 07:40 - Microbiology Findings Microbiology Findings: Microbiology, Last 48 Hours 11/10/16 16:35 Sputum Culture - Final Sputum - Clinical Findings Intake & Output: Intake & Output 11/14/16 11/14/16 11/15/16 15:59 23:59 07:59 Intake Total 1182 / 1182 694 / 694 725 / 725 Output Total 625 / 625 400 / 400 550 / 550 Balance 557 / 557 294 / 294 175 / 175 Weight 78.528 kg 76.521 kg Consult Discharge Plan - Plan Referrals: NO,PCP [Primary Care Provider] -
[2016-11-15] MEDS: Docusate Oral Soln 100 MG/10 ML UDC GTUBE SCH ×2 (08:11→19:58)
[2016-11-15] MEDS: Chlorhexidine Rinse 15 ML MOUTHWASH MM SCH ×2 (08:11→19:58)
[2016-11-15] MEDS: Pantoprazole 40 MG VIAL IVP SCH (08:12)
[2016-11-15] MEDS: predniSONE 20 MG TABLET PO SCH (08:14)
[2016-11-15] MEDS: FentaNYL (PF) 3,000 MCG in 0.9 % Sodium Chloride 240 ML IVC SCH (15:12)
[2016-11-15] MEDS: Dexmedetomidine HCl 400 MCG/100 ML MLS IVC SCH ×3 (16:28→20:00)
[2016-11-16] MEDS: Ipratropium/Albuterol Neb 3 ML IH SCH ×7 (00:09→23:48)
[2016-11-16] MEDS: Insulin LISPRO 300 UNITS/3 ML VIAL SQ SCH ×5 (00:09→23:25)
[2016-11-16 04:08] LABS: Hematocrit 32.3 % (37.5-50.1); Hemoglobin 10.4 g/dL (12.9-16.9); Mean Corpuscular HGB Conc 32.2 g/dL (31.6-35.5); Mean Corpuscular Hemoglobin 28.8 pg (28.0-33.3); Mean Corpuscular Volume 89.5 fL (83.0-100.0); Mean Platelet Volume 10.4 fL (9.4-12.4); Platelet Count 319 K/mcL (140-400); Red Blood Count 3.61 M/mcL (4.19-5.50); Red Cell Distribution Width 15.6 % (11.5-14.5)
[2016-11-16 04:12] LABS: Ionized Calcium 1.14 mmol/L (1.15-1.35)
[2016-11-16 04:22] LABS: BUN/Creatinine Ratio 53 (6-26); Blood Urea Nitrogen 27 mg/dL (8-26); Carbon Dioxide 31 mEq/L (19-29); Chloride 106 mEq/L (98-109); Glucose 108 mg/dL (70-99); Magnesium 1.4 mg/dL (1.6-2.6); Osmolality,Calculated 298 (280-300); Phosphorous 2.4 mg/dL (2.3-4.7); Potassium 3.8 mEq/L (3.5-4.5); Sodium 141 mEq/L (136-145); eGFR For African Americans > 60 (> 60); eGFR For Non-African Americans > 60 (> 60)
[2016-11-16 04:23] LABS: Calcium 6.7 mg/dL (8.6-10.8)
[2016-11-16 04:29] LABS: Lymphocytes # 3.4 K/mcL (0.6-4.6); Monocytes # 0.8 K/mcL (0.0-1.3); Neutrophils # 8.8 K/mcL (1.6-8.9)
[2016-11-16 04:30] LABS: Large Platelets Present (Not Present); Platelet Estimate Normal (Normal)
[2016-11-16 04:31] LABS: Basophilic Stippling 1+ (Not Present); Polychromasia 1+ (Not Present)
[2016-11-16 05:00] LABS: ABG Base Excess 13.4 mEq/L (-2.0 to 3.0); ABG HCO3 38.7 mEQ/L (21-27); ABG Oxygen Saturation 90 % (95-98); ABG PCO2 52 mmHg (35-45); ABG PH 7.48 pH Units (7.32-7.45); ABG PO2 53 mmHg (85-104); ABG TCO2 40.3 mEq/L (20-26); Blood Gas FiO2 30 %
[2016-11-16] MEDS: FentaNYL (PF) 3,000 MCG in 0.9 % Sodium Chloride 240 ML IVC SCH ×2 (05:06→18:34)
--- NOTE | 2016-11-16 07:06 | Pulmonology Progress Note ---
Date of Encounter: 11/16/16 Time of Encounter: 07:03 Assessment and Plan (1) Acute respiratory failure Current Visit: Yes Status: Acute Patient intubated, on ventilator Cpap, PEEP 5, patient is awake and alert. Due to agitation patient is in soft restraints of upper extremities. Acute respiratory failure secondary to pneumonia due to S. pneumoniae vs copd exacerbation. Extubation today with bipap trial. If patient's saturation maintains, possible transfer to step down unit 2N. If fails to tolerate transition off ventilator, plan is to reintubated and plan for tracheostomy and feedint tube placement. Vitals stable, ABG improved Continue duonebs and oral steroids, begin taper Continue rocephin d6/10. Qualifiers: Respiratory failure complication: hypoxia and hypercapnia Qualified Code(s) : J96.01 - Acute respiratory failure with hypoxia; J96.02 - Acute respiratory failure with hypercapnia (2) Pneumonia Current Visit: Yes Status: Acute Continue per plan in assessment above. Qualifiers: Pneumonia type: due to Pneumococcus Laterality: right Lung location: lower lobe of lung Qualified Code(s): J13 - Pneumonia due to Streptococcus pneumoniae (3) COPD exacerbation Current Visit: Yes Status: Acute Continue per plan in assessment above. (4) Encephalopathy Current Visit: Yes Status: Acute Likely secondary to acute respiratory failure secondary to pneumonia vs copd exacerbation vs icu delirium. Patient also has history of alcohol abuse and Ativan usage. Continue with seroquel. Continue telemetry. QTc within normal on serial EKG. (5) Elevated troponin Current Visit: Yes Status: Acute (6) GERD (gastroesophageal reflux disease) Current Visit: Yes Status: Acute gi ppx with protonix. Qualifiers: Esophagitis presence: esophagitis presence not specified Qualified Code(s) : K21.9 - Gastro-esophageal reflux disease without esophagitis (7) Hepatitis C Current Visit: Yes Status: Acute History of Hepatitis C [facility]. No current therapy at this time. Qualifiers: Viral hepatitis chronicity: unspecified Hepatic coma status: without hepatic coma Qualified Code(s): B19.20 - Unspecified viral hepatitis C without hepatic coma (8) DVT prophylaxis Current Visit: Yes Status: Acute Heparin for dvt ppx. Subjective Principal diagnosis: Acute Resp Failure Interval history: Patient did well overnight. Sedation decreased to precedex only this morning at 0600am and placed on Cpap. Patient has been doing well since, significantly agitated. 2 point upper extremity restraints in place. Vitals stable overnight Good urine output with cath. Objective PUL Vital signs: Last Vital Signs Temp 97.7 F 11/16/16 05:01 Pulse 84 11/16/16 05:57 Resp 14 11/16/16 05:57 BP 124/59 11/16/16 05:57 Pulse Ox 93 L 11/16/16 05:57 General appearance: alert, other (intubated, on cpap, spontaenous eye opening and moves all extremities) Eyes: nonicteric Neck: supple Effort: normal Auscultation: right: rhonchi, bilateral: wheezes Cardiovascular: regular rate and rhythm Gastrointestinal: normoactive bowel sounds, soft, non-tender, non-distended Integumentary: normal Extremities: no cyanosis, no edema, pink and warm, pulses normal Musculoskeletal: no deformities Gait: normal posture non-focal exam, pupils equal and round, motor strength normal and symmetric affect normal, anxious Ventilator Settings Ventilator Settings: Ventilator Settings, Last 8 Hours Ventilator Mode VC+ Ventilator Mode CPAP Ventilator Mode VC+ Ventilator Mode VC+ Ventilator Mode VC+ Ventilator Mode VC+ Ventilator Mode VC+ Ventilator Mode VC+ Ventilator Mode VC+ Ventilator Mode VC+ Ventilator Mode VC+ Ventilator Mode VC+ Ventilator Tidal Volume 500 Setting Ventilator Tidal Volume 500 Setting Ventilator Tidal Volume 500 Setting Ventilator Tidal Volume 500 Setting Ventilator Tidal Volume 500 Setting Ventilator Tidal Volume 500 Setting Ventilator Tidal Volume 500 Setting Ventilator Tidal Volume 500 Setting Ventilator Tidal Volume 500 Setting Ventilator Tidal Volume 500 Setting Ventilator Tidal Volume 500 Setting Ventilator Respiratory Rate 14 Setting Ventilator Respiratory Rate 14 Setting Ventilator Respiratory Rate 14 Setting Ventilator Respiratory Rate 14 Setting Ventilator Respiratory Rate 14 Setting Ventilator Respiratory Rate 14 Setting Ventilator Respiratory Rate 14 Setting Ventilator Respiratory Rate 14 Setting Ventilator Respiratory Rate 14 Setting Ventilator Respiratory Rate 14 Setting Ventilator Respiratory Rate 14 Setting Actual Respiratory Rate 30 Actual Respiratory Rate 28 Actual Respiratory Rate 14 Actual Respiratory Rate 14 Actual Respiratory Rate 14 Actual Respiratory Rate 14 Actual Respiratory Rate 14 Actual Respiratory Rate 14 Actual Respiratory Rate 14 Actual Respiratory Rate 14 Actual Respiratory Rate 14 Positive End Expiratory 5 Pressure Positive End Expiratory 5 Pressure Positive End Expiratory 5 Pressure Positive End Expiratory 5 Pressure Positive End Expiratory 5 Pressure Positive End Expiratory 5 Pressure Positive End Expiratory 5 Pressure Positive End Expiratory 5 Pressure Positive End Expiratory 5 Pressure Positive End Expiratory 5 Pressure Positive End Expiratory 5 Pressure Positive End Expiratory 5 Pressure Peak Inspiratory Airway 33 Pressure Peak Inspiratory Airway 14 Pressure Peak Inspiratory Airway 33 Pressure Peak Inspiratory Airway 33 Pressure Peak Inspiratory Airway 33 Pressure Peak Inspiratory Airway 33 Pressure Peak Inspiratory Airway 32 Pressure Peak Inspiratory Airway 37 Pressure Peak Inspiratory Airway 39 Pressure Peak Inspiratory Airway 33 Pressure Peak Inspiratory Airway 31 Pressure Results - Laboratory Findings CBC and BMP: 11/16/16 03:54 11/16/16 03:54 ABG ABG pH 7.48 pH Units (7.32-7.45) H 11/16/16 04:46 ABG pCO2 52 mmHg (35-45) H 11/16/16 04:46 ABG pO2 53 mmHg (85-104) L 11/16/16 04:46 ABG O2 Saturation 90 % (95-98) L 11/16/16 04:46 PT/INR, D-dimer PT 12.6 Seconds (9.4-12.1) H 11/10/16 07:23 Abnormal lab findings: Abnormal lab results WBC 13.0 K/mcL (4.3-11.1) H 11/16/16 03:54 RBC 3.61 M/mcL (4.19-5.50) L 11/16/16 03:54 Hgb 10.4 g/dL (12.9-16.9) L 11/16/16 03:54 Hct 32.3 % (37.5-50.1) L 11/16/16 03:54 RDW 15.6 % (11.5-14.5) H 11/16/16 03:54 Immature Gran % 4.7 % (0-4) H 11/11/16 02:42 Nucleated RBCs/100 WBC 0.3 /100 WBC (0) H 11/11/16 02:42 Large Platelets Present (Not Present) A 11/16/16 03:54 Polychromasia 1+ (Not Present) A 11/16/16 03:54 Hypochromasia Present (Not Present) A 11/12/16 04:06 Basophilic Stippling 1+ (Not Present) A 11/16/16 03:54 PT 12.6 Seconds (9.4-12.1) H 11/10/16 07:23 APTT 17.4 Seconds (26.0-36.0) L 11/10/16 07:23 ABG pH 7.48 pH Units (7.32-7.45) H 11/16/16 04:46 ABG pCO2 52 mmHg (35-45) H 11/16/16 04:46 ABG pO2 53 mmHg (85-104) L 11/16/16 04:46 ABG HCO3 38.7 mEQ/L (21-27) H 11/16/16 04:46 ABG Total CO2 40.3 mEq/L (20-26) H 11/16/16 04:46 ABG O2 Saturation 90 % (95-98) L 11/16/16 04:46 ABG Base Excess 13.4 mEq/L (-2.0 to 3.0) H 11/16/16 04:46 Carbon Dioxide 31 mEq/L (19-29) H 11/16/16 03:54 BUN 27 mg/dL (8-26) H 11/16/16 03:54 Creatinine 0.51 mg/dL (0.72-1.25) L 11/16/16 03:54 BUN/Creatinine Ratio 53 (6-26) H 11/16/16 03:54 Glucose 108 mg/dL (70-99) H 11/16/16 03:54 POC Glucose 112 (58-89) H 11/15/16 23:56 Calcium 6.7 mg/dL (8.6-10.8) L D 11/16/16 03:54 Ionized Calcium 1.14 mmol/L (1.15-1.35) L 11/16/16 03:54 Magnesium 1.4 mg/dL (1.6-2.6) L 11/16/16 03:54 Troponin I 0.04 ng/mL (0-0.03) H* 11/10/16 07:23 B-Natriuretic Peptide 167 pg/mL (0-100) H 11/10/16 07:23 Serum Total Protein 4.9 g/dL (6.0-8.3) L 11/15/16 03:00 Albumin 1.8 g/dL (3.5-5.0) L 11/15/16 03:00 Albumin/Globulin Ratio 0.6 (1.1-2.2) L 11/15/16 03:00 Urine Clarity Cloudy (Clear) A 11/10/16 06:59 Ur Specific [place] 1.028 (1.010-1.025) H 11/10/16 06:59 Urine Protein 100 mg/dL (Neg-Trace) H 11/10/16 06:59 Urine Ketones 15 mg/dL (Negative) H 11/10/16 06:59 Urine Blood Large (Negative) H 11/10/16 06:59 Urine Microscopic RBC TNTC per hpf (0-3) H 11/10/16 06:59 Urine Microscopic WBC 5-15 per hpf (0-3) H 11/10/16 06:59 Ur Squamous Epith Cells Many per lpf (None-Few) H 11/10/16 06:59 Ur Culture Indicated? YES (NO) A 11/10/16 06:59 Vancomycin Trough 4.5 mcg/mL (10-20) L 11/10/16 07:40 - Clinical Findings Intake & Output: Intake & Output 11/15/16 11/15/16 11/16/16 15:59 23:59 07:59 Intake Total 1142 / 1142 988 / 988 676 / 676 Output Total 700 / 700 700 / 700 525 / 525 Balance 442 / 442 288 / 288 151 / 151 Weight 77.1 kg 78.4 kg Consult Discharge Plan - Plan Referrals: NO,PCP [Primary Care Provider] -
[2016-11-16] MEDS: Pantoprazole 40 MG VIAL IVP SCH (08:00)
[2016-11-16] MEDS: Docusate Oral Soln 100 MG/10 ML UDC GTUBE SCH ×2 (08:00→20:17)
[2016-11-16] MEDS: predniSONE 20 MG TABLET PO SCH (08:00)
[2016-11-16] MEDS: Chlorhexidine Rinse 15 ML MOUTHWASH MM SCH ×2 (08:00→19:55)
--- NOTE | 2016-11-16 08:56 | Event Note ---
Date of Encounter: 11/16/16 Time of Encounter: 08:53 The patient was examined, the chart and all data reviewed as well as the most recent chest imaging studies. Currently, the son is at the bedside with the patient. The patient is on low-level Precedex infusion and is receiving spontaneous breathing trial which is reasonably well tolerated at this time ( however no use of accessory respiratory muscles). The patient's breathing trial is well tolerated, he will be extubated directly to BiPAP for several hours. If the patient fails to tolerate the transition off invasive ventilatory support, he will be reintubated and this would serve as a bridge to tracheostomy and feeding tube placement and likely long-term ventilatory support. I reviewed the situation at length with the son and the patient. The son feels that all aggressive medical measures should be provided to the father although it is difficult to discern if the patient (father) agrees with this strategy. Initially, following extubation, clarity will be sought and reference the patient's wishes for ongoing aggressive care or transitioning to comfort measures given the very advanced nature of his lung disease. Continue all medical measures as outlined or treatment of COPD and pneumococcal pneumonia with bacteremia. Caprice
[2016-11-16] MEDS: *HR* Heparin 5,000 UNIT/ML VIAL SQ SCH ×3 (10:10→22:13)
[2016-11-16] MEDS ORDERED: Magnesium Sulfate 2 GM in D5% in Water 100 ML IVPB PRN (10:28)
[2016-11-16] MEDS ORDERED: Calcium Gluconate 1,000 MG in D5% in Water 100 ML IVPB PRN (10:28)
[2016-11-16] MEDS ORDERED: Potassium Phosphate 44 MEQ in 0.9 % Sodium Chloride 250 ML IVPB PRN (10:28)
[2016-11-16 11:16] LABS: Magnesium 1.6 mg/dL (1.6-2.6)
[2016-11-16 11:17] LABS: BUN/Creatinine Ratio 51 (6-26); Blood Urea Nitrogen 34 mg/dL (8-26); Carbon Dioxide 32 mEq/L (19-29); Chloride 100 mEq/L (98-109); Glucose 173 mg/dL (70-99); Osmolality,Calculated 304 (280-300); Sodium 141 mEq/L (136-145); eGFR For African Americans > 60 (> 60); eGFR For Non-African Americans > 60 (> 60)
[2016-11-16 11:18] LABS: Phosphorous 3.8 mg/dL (2.3-4.7)
[2016-11-16 11:21] LABS: Calcium 8.8 mg/dL (8.6-10.8); Potassium 5.5 mEq/L (3.5-4.5)
[2016-11-16 11:43] LABS: Basophils # 0.1 K/mcL (0.0-0.2); Basophils % 0.4 %; Eosinophils # 0.2 K/mcL (0.0-0.6); Eosinophils % 0.5 %; Hematocrit 39.9 % (37.5-50.1); Immature Granulocytes % 4.1 % (0-4); Immature Platelets 5.6 % (1.1-6.1); Lymphocytes # 1.6 K/mcL (0.6-4.6); Lymphocytes % 5.2 %; Mean Corpuscular HGB Conc 32.1 g/dL (31.6-35.5); Mean Corpuscular Hemoglobin 28.5 pg (28.0-33.3); Mean Corpuscular Volume 88.9 fL (83.0-100.0); Mean Platelet Volume 10.5 fL (9.4-12.4); Monocytes # 1.8 K/mcL (0.0-1.3); Monocytes % 5.7 %; Platelet Count 467 K/mcL (140-400); Red Blood Count 4.49 M/mcL (4.19-5.50); Red Cell Distribution Width 15.8 % (11.5-14.5); Segmented Neutrophils % 84.1 %
[2016-11-16 11:46] LABS: Hemoglobin 12.8 g/dL (12.9-16.9); Neutrophils # 26.2 K/mcL (1.6-8.9)
[2016-11-16 12:13] LABS: Platelet Estimate Normal (Normal)
--- NOTE | 2016-11-16 12:17 | Event Note ---
Date of Encounter: 11/16/16 Time of Encounter: 12:12 Patient successfully extubated at 11:00am and on bipap. Patient reports he is comfortable on BiPap at this time, reports no anxiety or need for anxiety meds, but continues to be restless moving his upper extremities and grabbing things. Patient is alert and oriented x3. Satting 94% on Bipap. Discussed with patient code status. Patient would like to be Full Code. Patient does not want tracheostomy if he is unable to tolerate bipap and requires reintubation. Patient is okay with reintubation should need arise. Patient reports shortness of breath, but is otherwise doing well. Denies pain. Will continue monitoring at this time and reassess.
[2016-11-16 13:27] LABS: Ionized Calcium 1.09 mmol/L (1.15-1.35)
[2016-11-16] MEDS: Dexmedetomidine HCl 400 MCG/100 ML MLS IVC SCH ×2 (19:16→19:52)
[2016-11-16] MEDS: Furosemide 20 MG/2 ML VIAL IVP SCH (20:17)
[2016-11-16 21:48] LABS: Ionized Calcium 1.17 mmol/L (1.15-1.35); Magnesium 1.9 mg/dL (1.6-2.6)
[2016-11-17 03:35] LABS: Basophils # 0.1 K/mcL (0.0-0.2); Basophils % 0.3 %; Eosinophils # 0.2 K/mcL (0.0-0.6); Eosinophils % 1.1 %; Hematocrit 38.5 % (37.5-50.1); Hemoglobin 12.6 g/dL (12.9-16.9); Lymphocytes # 2.4 K/mcL (0.6-4.6); Lymphocytes % 15.3 %; Mean Corpuscular HGB Conc 32.7 g/dL (31.6-35.5); Mean Corpuscular Hemoglobin 28.5 pg (28.0-33.3); Mean Corpuscular Volume 87.1 fL (83.0-100.0); Mean Platelet Volume 10.2 fL (9.4-12.4); Monocytes # 1.8 K/mcL (0.0-1.3); Monocytes % 11.5 %; Platelet Count 472 K/mcL (140-400); Red Blood Count 4.42 M/mcL (4.19-5.50); Red Cell Distribution Width 15.6 % (11.5-14.5); Segmented Neutrophils % 68.8 %
[2016-11-17 03:37] LABS: Neutrophils # 10.9 K/mcL (1.6-8.9)
[2016-11-17] MEDS: Ipratropium/Albuterol Neb 3 ML IH SCH ×6 (04:12→20:43)
[2016-11-17] MEDS: Insulin LISPRO 300 UNITS/3 ML VIAL SQ SCH ×3 (04:49→18:29)
[2016-11-17 05:06] LABS: BUN/Creatinine Ratio 38 (6-26); Blood Urea Nitrogen 25 mg/dL (8-26); Calcium 9.1 mg/dL (8.6-10.8); Carbon Dioxide 33 mEq/L (19-29); Chloride 98 mEq/L (98-109); Glucose 105 mg/dL (70-99); Osmolality,Calculated 301 (280-300); Sodium 143 mEq/L (136-145); eGFR For African Americans > 60 (> 60); eGFR For Non-African Americans > 60 (> 60)
[2016-11-17 05:28] LABS: Potassium 4.2 mEq/L (3.5-4.5)
[2016-11-17] MEDS: Furosemide 20 MG/2 ML VIAL IVP SCH ×2 (08:36→20:34)
[2016-11-17] MEDS: Pantoprazole 40 MG VIAL IVP SCH (08:36)
[2016-11-17] MEDS: predniSONE 20 MG TABLET PO SCH (08:37)
[2016-11-17] MEDS: Chlorhexidine Rinse 15 ML MOUTHWASH MM SCH ×2 (08:38→20:35)
[2016-11-17] MEDS: Docusate Oral Soln 100 MG/10 ML UDC GTUBE SCH ×2 (08:38→20:35)
[2016-11-17] MEDS: *HR* Heparin 5,000 UNIT/ML VIAL SQ SCH ×3 (08:40→23:47)
--- NOTE | 2016-11-17 09:42 | Event Note ---
Date of Encounter: 11/17/16 Time of Encounter: 09:33 Patient examined, chart and all data reviewed as well as recent imaging studies. The patient was successfully extubated 11-16-16 although continues to experience high work of breathing and has been only variably compliant with, tolerant of BiPAP support (overnight). His FiO2 requirement is essentially that of baseline (low flow nasal cannula O2 supplementation, currently at home dose). The patient remains confused and only mildly agitated per my discussion with the nursing staff overnight. This morning is cooperative during my evaluation. As outlined in Dr. Santo's note yesterday, the patient apparently is willing to undergo reintubation but clearly does not agree to prolonged ventilatory support nor tracheostomy. I believe that re-intubation in this particular individual is essence a "bridge to nowhere" in reference to his long-term management (end-stage COPD and my estimation). Examination is notable for a cachectic male appears older than his stated age he is in the mild degree of respiratory distress. Note mild use of accessory respiratory muscles, other vitals reviewed. Chest exam is notable for severely diminished breath sounds throughout all anaya prolonged expiratory phase. Cardiac exam regular rate abdominal exam was soft nontender bowel sounds throughout. Extremities were warm to touch. Continue current management for treatment of very advanced COPD with acute exacerbation and acute chronic respiratory failure with hypoxia hypercapnia due to the same. Given the patient's tenuous clinical status, respiratory status, and continued desire for aggressive medical care, management will will be provided with in the ICU setting for the current time. Caprice
--- NOTE | 2016-11-17 10:46 | Pulmonology Progress Note ---
Date of Encounter: 11/17/16 Time of Encounter: 10:45 Assessment and Plan (1) Acute respiratory failure Current Visit: Yes Status: Acute Patient extubated yesterday 11/16/16 at 11:00am, transitioned to bipap, and now on 2L nasal cannula. Patient has been satting between 91-94%. Mild labored and mild accessory muscle use. Acute respiratory failure secondary to pneumonia due to S. pneumoniae vs copd exacerbation. Continue to monitor patient. Vitals stable, slightly hypertensive. Continue duonebs and oral steroids. Continue rocephin d7/10 Okay for return to regular diet and terry removal. Patient needs some will require some assistance. Ordered PT/OT eval. Qualifiers: Respiratory failure complication: hypoxia and hypercapnia Qualified Code(s) : J96.01 - Acute respiratory failure with hypoxia; J96.02 - Acute respiratory failure with hypercapnia (2) Pneumonia Current Visit: Yes Status: Acute Continue per plan in assessment above. WBC elevated on CBC, most likely due to steroid induced leukocytosis. WBC of 31 likely lab error as patient was stable and no fever. Qualifiers: Pneumonia type: due to Pneumococcus Laterality: right Lung location: lower lobe of lung Qualified Code(s): J13 - Pneumonia due to Streptococcus pneumoniae (3) COPD exacerbation Current Visit: Yes Status: Acute Continue per plan in assessment above. (4) Encephalopathy Current Visit: Yes Status: Acute Likely secondary to acute respiratory failure secondary to pneumonia vs copd exacerbation vs icu delirium. Patient also has history of alcohol abuse and Ativan usage. Continue with seroquel. Continue telemetry. QTc within normal on serial EKG. (5) Elevated troponin Current Visit: Yes Status: Acute (6) GERD (gastroesophageal reflux disease) Current Visit: Yes Status: Acute gi ppx with protonix. Qualifiers: Esophagitis presence: esophagitis presence not specified Qualified Code(s) : K21.9 - Gastro-esophageal reflux disease without esophagitis (7) Hepatitis C Current Visit: Yes Status: Acute History of Hepatitis C [facility]. No current therapy at this time. Qualifiers: Viral hepatitis chronicity: unspecified Hepatic coma status: without hepatic coma Qualified Code(s): B19.20 - Unspecified viral hepatitis C without hepatic coma (8) Physical deconditioning Current Visit: Yes Status: Acute Patient presented to [facility] via transfer from [place] for acute respiratory and was on ventilator for 6 days prior to extubation. Patient has a history according to son and other family members of mild stumbling with walking about 25 yards distance and slightly weak. Will have PT/OT eval patient. (9) DVT prophylaxis Current Visit: Yes Status: Acute Heparin for dvt ppx. Subjective Principal diagnosis: Acute Resp Failure Interval history: Patient did well overnight. Patient was extubated yesterday morning 11/16/16 around 11:0am. Patient has been doing well since on nasal cannula and slight use of accessory muscles, but comfortable. Vitals stable overnight, slightly hypertensive. Good urine output with cath. Objective PUL Vital signs: Last Vital Signs Temp 98.3 F 11/17/16 08:18 Pulse 84 11/17/16 08:00 Resp 23 11/17/16 08:00 BP 159/72 11/17/16 08:00 Pulse Ox 94 L 11/17/16 08:00 General appearance: no acute distress, alert, other (cahectic appearance) Eyes: nonicteric ENT: oropharynx moist Neck: supple Effort: mildly labored Auscultation: right: rhonchi (mild, much improved), bilateral: diminished breath sounds Cardiovascular: regular rate and rhythm Gastrointestinal: normoactive bowel sounds, soft, non-tender, non-distended Integumentary: normal Extremities: no cyanosis, no edema, no clubbing, pink and warm, pulses normal Musculoskeletal: no deformities Gait: normal posture normal mental status, non-focal exam, pupils equal and round, CN II-XII normal, motor strength normal and symmetric mood appropriate, affect normal Results - Laboratory Findings CBC and BMP: 11/17/16 03:29 11/17/16 04:40 ABG ABG pH 7.48 pH Units (7.32-7.45) H 11/16/16 04:46 ABG pCO2 52 mmHg (35-45) H 11/16/16 04:46 ABG pO2 53 mmHg (85-104) L 11/16/16 04:46 ABG O2 Saturation 90 % (95-98) L 11/16/16 04:46 PT/INR, D-dimer PT 12.6 Seconds (9.4-12.1) H 11/10/16 07:23 Abnormal lab findings: Abnormal lab results WBC 15.8 K/mcL (4.3-11.1) H 11/17/16 03:29 Hgb 12.6 g/dL (12.9-16.9) L 11/17/16 03:29 RDW 15.6 % (11.5-14.5) H 11/17/16 03:29 Plt Count 472 K/mcL (140-400) H 11/17/16 03:29 Neutrophils # 10.9 K/mcL (1.6-8.9) H 11/17/16 03:29 Monocytes # 1.8 K/mcL (0.0-1.3) H 11/17/16 03:29 Nucleated RBCs/100 WBC 0.3 /100 WBC (0) H 11/11/16 02:42 Large Platelets Present (Not Present) A 11/16/16 03:54 Polychromasia 1+ (Not Present) A 11/16/16 03:54 Hypochromasia Present (Not Present) A 11/12/16 04:06 Basophilic Stippling 1+ (Not Present) A 11/16/16 03:54 PT 12.6 Seconds (9.4-12.1) H 11/10/16 07:23 APTT 17.4 Seconds (26.0-36.0) L 11/10/16 07:23 ABG pH 7.48 pH Units (7.32-7.45) H 11/16/16 04:46 ABG pCO2 52 mmHg (35-45) H 11/16/16 04:46 ABG pO2 53 mmHg (85-104) L 11/16/16 04:46 ABG HCO3 38.7 mEQ/L (21-27) H 11/16/16 04:46 ABG Total CO2 40.3 mEq/L (20-26) H 11/16/16 04:46 ABG O2 Saturation 90 % (95-98) L 11/16/16 04:46 ABG Base Excess 13.4 mEq/L (-2.0 to 3.0) H 11/16/16 04:46 Carbon Dioxide 33 mEq/L (19-29) H 11/17/16 04:40 Creatinine 0.66 mg/dL (0.72-1.25) L 11/17/16 04:40 BUN/Creatinine Ratio 38 (6-26) H 11/17/16 04:40 Glucose 105 mg/dL (70-99) H 11/17/16 04:40 Calculated Osmolality 301 (280-300) H 11/17/16 04:40 Troponin I 0.04 ng/mL (0-0.03) H* 11/10/16 07:23 B-Natriuretic Peptide 167 pg/mL (0-100) H 11/10/16 07:23 Serum Total Protein 4.9 g/dL (6.0-8.3) L 11/15/16 03:00 Albumin 1.8 g/dL (3.5-5.0) L 11/15/16 03:00 Albumin/Globulin Ratio 0.6 (1.1-2.2) L 11/15/16 03:00 Urine Clarity Cloudy (Clear) A 11/10/16 06:59 Ur Specific [place] 1.028 (1.010-1.025) H 11/10/16 06:59 Urine Protein 100 mg/dL (Neg-Trace) H 11/10/16 06:59 Urine Ketones 15 mg/dL (Negative) H 11/10/16 06:59 Urine Blood Large (Negative) H 11/10/16 06:59 Urine Microscopic RBC TNTC per hpf (0-3) H 11/10/16 06:59 Urine Microscopic WBC 5-15 per hpf (0-3) H 11/10/16 06:59 Ur Squamous Epith Cells Many per lpf (None-Few) H 11/10/16 06:59 Ur Culture Indicated? YES (NO) A 11/10/16 06:59 Vancomycin Trough 4.5 mcg/mL (10-20) L 11/10/16 07:40 - Clinical Findings Intake & Output: Intake & Output 11/16/16 11/17/16 11/17/16 23:59 07:59 15:59 Intake Total 250 / 250 100 / 100 240 / 240 Output Total 3450 / 3450 800 / 800 400 / 400 Balance -3200 / -3200 -700 / -700 -160 / -160 Consult Discharge Plan - Plan Referrals: NO,PCP [Primary Care Provider] -
[2016-11-18] MEDS: Ipratropium/Albuterol Neb 3 ML IH SCH ×6 (00:22→20:06)
[2016-11-18] MEDS: Insulin LISPRO 300 UNITS/3 ML VIAL SQ SCH ×4 (01:15→17:43)
[2016-11-18 05:09] LABS: BUN/Creatinine Ratio 33 (6-26); Blood Urea Nitrogen 22 mg/dL (8-26); Calcium 8.9 mg/dL (8.6-10.8); Carbon Dioxide 29 mEq/L (19-29); Chloride 101 mEq/L (98-109); Glucose 146 mg/dL (70-99); Osmolality,Calculated 300 (280-300); Potassium 3.9 mEq/L (3.5-4.5); Sodium 142 mEq/L (136-145); eGFR For African Americans > 60 (> 60); eGFR For Non-African Americans > 60 (> 60)
[2016-11-18] MEDS: Furosemide 20 MG/2 ML VIAL IVP SCH ×2 (07:42→20:54)
[2016-11-18] MEDS: *HR* Heparin 5,000 UNIT/ML VIAL SQ SCH ×3 (07:43→23:05)
[2016-11-18] MEDS: Docusate Oral Soln 100 MG/10 ML UDC GTUBE SCH ×2 (07:55→20:54)
[2016-11-18] MEDS: predniSONE 20 MG TABLET PO SCH (07:55)
[2016-11-18] MEDS: Chlorhexidine Rinse 15 ML MOUTHWASH MM SCH ×2 (07:56→20:56)
--- NOTE | 2016-11-18 10:55 | Pulmonology Progress Note ---
Date of Encounter: 11/18/16 Time of Encounter: 08:00 Assessment and Plan (1) Acute respiratory failure Current Visit: Yes Status: Acute Acute on chronic respiratory failure with hypoxia and hypercapnia. This is likely due to advanced COPD coupled with a COPD exacerbation secondary to pneumococcal pneumonia as strep pneumo antigen was positive. Patient required intubation in the ED due to progressive respiratory distress causing hypoxia and hypercapnia, confusion/agitation and inability to protect his airway. Patient is currently unrestrained. On BiPAP: FiO2 of 50. O2 sat pulse ox 100%. Most recent Blood gas obtained on 11/16/16 demonstrated pH 7.48, PCO2 of 52, PaO2 53. Patient exhibits extreme agitation: contributory factors may include encephalopathy due to strep pneumo/infection/sepsis, ICU delirium, possible underlying baseline mood imbalance disorder/dementia. Currently, controlled with Seroquel. Continue BiPaP support. map goal 61-66. Vitals are stable. Continue duo nebs and steroids. Continue Rocephin day 7 of 10. Qualifiers: Respiratory failure complication: hypoxia and hypercapnia Qualified Code(s) : J96.01 - Acute respiratory failure with hypoxia; J96.02 - Acute respiratory failure with hypercapnia (2) Pneumonia Current Visit: Yes Status: Acute Continue plan per assessment above. Qualifiers: Pneumonia type: due to Pneumococcus Laterality: right Lung location: lower lobe of lung Qualified Code(s): J13 - Pneumonia due to Streptococcus pneumoniae (3) COPD exacerbation Current Visit: Yes Status: Acute Continue plan per assessment above. (4) Encephalopathy Current Visit: Yes Status: Acute Likely multifactorial potentially due to acute respiratory failure secondary to pneumonia or COPD exacerbation versus ICU delirium versus underlying psychologic or neurologic issues. Continue Seroquel 50mg BID 100mg HS Continue telemetry Continue serial EKGs: QT/QTc within normal limits Subjective Principal diagnosis: Acute Resp Failure Interval history: Patient was extubated 11/16/16 and was placed on low flow oxygen by nasal cannula with BiPaP support at night. However, today he was experiencing increased work of breathing and was left on BiPaP. Patient states he does not want to come off the BiPaP at this time. Patient did not have any episodes of delirium or agitation overnight. Patient's vitals remained stable overnight he is being kept on Seroquel 50 TID although, due to difficulty sleeping at this dose will increase nighttime dose to 100 mg. Continue for patients comfort while continuing supportive therapies and antibiotics to treat the underlying condition. Objective PUL Vital signs: Last Vital Signs Temp 99.0 F 11/18/16 07:00 Pulse 90 11/18/16 09:36 Resp 31 11/18/16 09:36 BP 108/52 11/18/16 09:36 Pulse Ox 100 11/18/16 09:36 General appearance: other (Minimal respiratory distress on BiPAP. Appears comfortable. Patient is cooperative and pleasant this morning.) Eyes: nonicteric ENT: oropharynx moist Neck: supple, no lymphadenopathy Effort: mildly labored Auscultation: bilateral: diminished breath sounds Cardiovascular: regular rate and rhythm Gastrointestinal: normoactive bowel sounds, soft, non-tender Integumentary: normal Extremities: no cyanosis, pink and warm Musculoskeletal: no deformities CN II-XII normal Results - Laboratory Findings CBC and BMP: 11/17/16 03:29 11/18/16 04:40 ABG ABG pH 7.48 pH Units (7.32-7.45) H 11/16/16 04:46 ABG pCO2 52 mmHg (35-45) H 11/16/16 04:46 ABG pO2 53 mmHg (85-104) L 11/16/16 04:46 ABG O2 Saturation 90 % (95-98) L 11/16/16 04:46 PT/INR, D-dimer PT 12.6 Seconds (9.4-12.1) H 11/10/16 07:23 Abnormal lab findings: Abnormal lab results WBC 15.8 K/mcL (4.3-11.1) H 11/17/16 03:29 Hgb 12.6 g/dL (12.9-16.9) L 11/17/16 03:29 RDW 15.6 % (11.5-14.5) H 11/17/16 03:29 Plt Count 472 K/mcL (140-400) H 11/17/16 03:29 Neutrophils # 10.9 K/mcL (1.6-8.9) H 11/17/16 03:29 Monocytes # 1.8 K/mcL (0.0-1.3) H 11/17/16 03:29 Nucleated RBCs/100 WBC 0.3 /100 WBC (0) H 11/11/16 02:42 Large Platelets Present (Not Present) A 11/16/16 03:54 Polychromasia 1+ (Not Present) A 11/16/16 03:54 Hypochromasia Present (Not Present) A 11/12/16 04:06 Basophilic Stippling 1+ (Not Present) A 11/16/16 03:54 PT 12.6 Seconds (9.4-12.1) H 11/10/16 07:23 APTT 17.4 Seconds (26.0-36.0) L 11/10/16 07:23 ABG pH 7.48 pH Units (7.32-7.45) H 11/16/16 04:46 ABG pCO2 52 mmHg (35-45) H 11/16/16 04:46 ABG pO2 53 mmHg (85-104) L 11/16/16 04:46 ABG HCO3 38.7 mEQ/L (21-27) H 11/16/16 04:46 ABG Total CO2 40.3 mEq/L (20-26) H 11/16/16 04:46 ABG O2 Saturation 90 % (95-98) L 11/16/16 04:46 ABG Base Excess 13.4 mEq/L (-2.0 to 3.0) H 11/16/16 04:46 Creatinine 0.66 mg/dL (0.72-1.25) L 11/18/16 04:40 BUN/Creatinine Ratio 33 (6-26) H 11/18/16 04:40 Glucose 146 mg/dL (70-99) H 11/18/16 04:40 POC Glucose 90 (58-89) H 11/18/16 00:00 Troponin I 0.04 ng/mL (0-0.03) H* 11/10/16 07:23 B-Natriuretic Peptide 167 pg/mL (0-100) H 11/10/16 07:23 Serum Total Protein 4.9 g/dL (6.0-8.3) L 11/15/16 03:00 Albumin 1.8 g/dL (3.5-5.0) L 11/15/16 03:00 Albumin/Globulin Ratio 0.6 (1.1-2.2) L 11/15/16 03:00 Urine Clarity Cloudy (Clear) A 11/10/16 06:59 Ur Specific [place] 1.028 (1.010-1.025) H 11/10/16 06:59 Urine Protein 100 mg/dL (Neg-Trace) H 11/10/16 06:59 Urine Ketones 15 mg/dL (Negative) H 11/10/16 06:59 Urine Blood Large (Negative) H 11/10/16 06:59 Urine Microscopic RBC TNTC per hpf (0-3) H 11/10/16 06:59 Urine Microscopic WBC 5-15 per hpf (0-3) H 11/10/16 06:59 Ur Squamous Epith Cells Many per lpf (None-Few) H 11/10/16 06:59 Ur Culture Indicated? YES (NO) A 11/10/16 06:59 Vancomycin Trough 4.5 mcg/mL (10-20) L 11/10/16 07:40 - Clinical Findings Intake & Output: Intake & Output 11/17/16 11/18/16 11/18/16 23:59 07:59 15:59 Intake Total 180 / 180 Output Total 1850 / 1850 1650 / 1650 150 / 150 Balance -1850 / -1850 -1650 / -1650 30 / 30 Weight 66.633 kg Consult Discharge Plan - Plan Referrals: NO,PCP [Primary Care Provider] -
[2016-11-19] MEDS: Ipratropium/Albuterol Neb 3 ML IH SCH ×7 (00:05→20:47)
[2016-11-19] MEDS: Insulin LISPRO 300 UNITS/3 ML VIAL SQ SCH ×4 (00:06→16:46)
--- NOTE | 2016-11-19 07:05 | Pulmonology Progress Note ---
Date of Encounter: 11/19/16 Time of Encounter: 07:02 Assessment and Plan (1) Acute respiratory failure Current Visit: Yes Status: Acute Acute on chronic respiratory failure with hypoxia and hypercapnia. This is likely due to advanced COPD coupled with a COPD exacerbation secondary to pneumococcal pneumonia as strep pneumo antigen was positive. Patient required intubation in the ED due to progressive respiratory distress causing hypoxia and hypercapnia, confusion/agitation and inability to protect his airway. Patient is currently unrestrained. On BiPAP: FiO2 of 50. O2 sat pulse ox 100%. Most recent Blood gas obtained on 11/16/16 demonstrated pH 7.48, PCO2 of 52, PaO2 53. Patient exhibits extreme agitation: contributory factors may include encephalopathy due to strep pneumo/infection/sepsis, ICU delirium, possible underlying baseline mood imbalance disorder/dementia. Currently, controlled with Seroquel. Continue oxygen by nasal cannula goal O2 sat above 88% Vitals are stable. Continue duo nebs and steroids. Continue Rocephin day 8 of . STOP DATE 11/21/16. Qualifiers: Respiratory failure complication: hypoxia and hypercapnia Qualified Code(s) : J96.01 - Acute respiratory failure with hypoxia; J96.02 - Acute respiratory failure with hypercapnia (2) Pneumonia Current Visit: Yes Status: Acute Continue plan per assessment above. Qualifiers: Pneumonia type: due to Pneumococcus Laterality: right Lung location: lower lobe of lung Qualified Code(s): J13 - Pneumonia due to Streptococcus pneumoniae (3) COPD exacerbation Current Visit: Yes Status: Acute Continue plan per assessment above. (4) Encephalopathy Current Visit: Yes Status: Acute Likely multifactorial potentially due to acute respiratory failure secondary to pneumonia or COPD exacerbation versus ICU delirium versus underlying psychologic or neurologic issues. Continue Seroquel 50mg BID 100mg HS Continue telemetry Continue serial EKGs: QT/QTc within normal limits Subjective Principal diagnosis: Acute Resp Failure Interval history: Patient was on BiPAP overnight tolerated well. This morning patient is resting comfortably in bed on 4 L nasal cannula Oxygen saturation by pulse ox is 94%. Patient is in good spirits and is requesting to change his liquid Colace 2 a pill states that he cannot stand the taste of the liquid. Patient states that he is feeling much better and is ready to go home. When patient is moved minimally adjusted in the bed he desats down to 90 but appears well and without distress. Patient was still unable to sleep last night despite adjusting Seroquel to 100 mg at bedtime. Only 2 hours of sleep were achieved. Final cultures and sensitivities demonstrate Haemophilus influenza II beta lactamase positive, andstentrophomonas maltophpila sensitivities to ceftazidine and levofloxacin. Objective PUL Vital signs: Last Vital Signs Temp 98.2 F 11/19/16 04:15 Pulse 73 11/19/16 06:30 Resp 24 11/19/16 06:30 BP 142/77 11/19/16 06:30 Pulse Ox 94 L 11/19/16 06:30 General appearance: no acute distress Eyes: nonicteric ENT: oropharynx moist Mallampati (class): 2 Effort: normal Auscultation: bilateral: diminished breath sounds Cardiovascular: regular rate and rhythm Gastrointestinal: normoactive bowel sounds, soft, non-tender, non-distended Integumentary: normal Extremities: no cyanosis, pulses normal Musculoskeletal: no deformities pupils equal and round, CN II-XII normal mood appropriate, affect normal Results - Laboratory Findings CBC and BMP: 11/17/16 03:29 11/19/16 06:34 ABG ABG pH 7.48 pH Units (7.32-7.45) H 11/16/16 04:46 ABG pCO2 52 mmHg (35-45) H 11/16/16 04:46 ABG pO2 53 mmHg (85-104) L 11/16/16 04:46 ABG O2 Saturation 90 % (95-98) L 11/16/16 04:46 PT/INR, D-dimer PT 12.6 Seconds (9.4-12.1) H 11/10/16 07:23 Abnormal lab findings: Abnormal lab results WBC 15.8 K/mcL (4.3-11.1) H 11/17/16 03:29 Hgb 12.6 g/dL (12.9-16.9) L 11/17/16 03:29 RDW 15.6 % (11.5-14.5) H 11/17/16 03:29 Plt Count 472 K/mcL (140-400) H 11/17/16 03:29 Neutrophils # 10.9 K/mcL (1.6-8.9) H 11/17/16 03:29 Monocytes # 1.8 K/mcL (0.0-1.3) H 11/17/16 03:29 Nucleated RBCs/100 WBC 0.3 /100 WBC (0) H 11/11/16 02:42 Large Platelets Present (Not Present) A 11/16/16 03:54 Polychromasia 1+ (Not Present) A 11/16/16 03:54 Hypochromasia Present (Not Present) A 11/12/16 04:06 Basophilic Stippling 1+ (Not Present) A 11/16/16 03:54 PT 12.6 Seconds (9.4-12.1) H 11/10/16 07:23 APTT 17.4 Seconds (26.0-36.0) L 11/10/16 07:23 ABG pH 7.48 pH Units (7.32-7.45) H 11/16/16 04:46 ABG pCO2 52 mmHg (35-45) H 11/16/16 04:46 ABG pO2 53 mmHg (85-104) L 11/16/16 04:46 ABG HCO3 38.7 mEQ/L (21-27) H 11/16/16 04:46 ABG Total CO2 40.3 mEq/L (20-26) H 11/16/16 04:46 ABG O2 Saturation 90 % (95-98) L 11/16/16 04:46 ABG Base Excess 13.4 mEq/L (-2.0 to 3.0) H 11/16/16 04:46 Creatinine 0.66 mg/dL (0.72-1.25) L 11/18/16 04:40 BUN/Creatinine Ratio 33 (6-26) H 11/18/16 04:40 Glucose 146 mg/dL (70-99) H 11/18/16 04:40 POC Glucose 108 (58-89) H 11/18/16 23:42 Troponin I 0.04 ng/mL (0-0.03) H* 11/10/16 07:23 B-Natriuretic Peptide 167 pg/mL (0-100) H 11/10/16 07:23 Serum Total Protein 4.9 g/dL (6.0-8.3) L 11/15/16 03:00 Albumin 1.8 g/dL (3.5-5.0) L 11/15/16 03:00 Albumin/Globulin Ratio 0.6 (1.1-2.2) L 11/15/16 03:00 Urine Clarity Cloudy (Clear) A 11/10/16 06:59 Ur Specific [place] 1.028 (1.010-1.025) H 11/10/16 06:59 Urine Protein 100 mg/dL (Neg-Trace) H 11/10/16 06:59 Urine Ketones 15 mg/dL (Negative) H 11/10/16 06:59 Urine Blood Large (Negative) H 11/10/16 06:59 Urine Microscopic RBC TNTC per hpf (0-3) H 11/10/16 06:59 Urine Microscopic WBC 5-15 per hpf (0-3) H 11/10/16 06:59 Ur Squamous Epith Cells Many per lpf (None-Few) H 11/10/16 06:59 Ur Culture Indicated? YES (NO) A 11/10/16 06:59 Vancomycin Trough 4.5 mcg/mL (10-20) L 11/10/16 07:40 - Clinical Findings Intake & Output: Intake & Output 11/18/16 11/18/16 11/19/16 15:59 23:59 07:59 Intake Total 180 / 180 Output Total 1125 / 1125 1850 / 1850 300 / 300 Balance -945 / -945 -1850 / -1850 -300 / -300 Weight 70.443 kg Consult Discharge Plan - Plan Referrals: NO,PCP [Primary Care Provider] -
[2016-11-19 07:20] LABS: BUN/Creatinine Ratio 27 (6-26); Blood Urea Nitrogen 17 mg/dL (8-26); Calcium 8.7 mg/dL (8.6-10.8); Carbon Dioxide 32 mEq/L (19-29); Chloride 100 mEq/L (98-109); Glucose 146 mg/dL (70-99); Osmolality,Calculated 296 (280-300); Potassium 3.5 mEq/L (3.5-4.5); Sodium 141 mEq/L (136-145); eGFR For African Americans > 60 (> 60); eGFR For Non-African Americans > 60 (> 60)
--- NOTE | 2016-11-19 10:24 | Event Note ---
Date of Encounter: 11/19/16 Time of Encounter: 10:16 Patient examined, chart and all data reviewed as well as recent imaging studies. Patient's management was reviewed during comprehensive multidisciplinary critical care rounds this morning. In essence, Mr. Guardado has noted significant improvement of his respiratory and clinical status. He has successfully transitioned to low flow supplemental oxygen and does tolerate nightly use of BiPAP for 5-6 hour intervals. hew does experience impairment of sleep and most recently the nocturnal dose of Seroquel (provided for delirium in part) has been escalated. Aside from use of BiPAP at night to assist with treatment of acute on chronic respiratory failure with hypoxia and hypercapnia, low-flow supplemental oxygen has been provided to achieve saturation goal greater than equal to 88% via pulse oximetry, continued bronchodilator therapy and systemic steroid. Systemic steroid can be discontinued within the next several days depending upon the patient's clinical status. Given the severity of the patient's underlying lung disease and phenotype of frequent exacerbator phenotype as the impaired quality of life, the patient is suitable candidate to utilize an inhaled steroid long-acting beta agonist product in conjunction with a long- acting muscarinic agent. Obviously, the most important component of managing his very advanced COPD is continued tobacco abstinence (active smoker at the time of this admission). The patient will complete antibiotic therapy for documented pneumococcal pneumonia and bacteremia within the next 48 hours. The note by Dr. Montoya which I reviewed suggested the presence of stenotrophomonas and Haemophilus but that but those results reference to different patient chart. Given the improvement of this patient's clinical respiratory status, he can be transitioned out of the intensive care unit today. Long-term, this patient has poor prognosis and a high likelihood of readmission for recurrent bouts of respiratory failure exacerbation due to advanced COPD [facility] [phone]
[2016-11-19] MEDS: Chlorhexidine Rinse 15 ML MOUTHWASH MM SCH (10:36)
[2016-11-19] MEDS: *HR* Heparin 5,000 UNIT/ML VIAL SQ SCH ×2 (10:39→16:36)
[2016-11-19] MEDS: predniSONE 20 MG TABLET PO SCH (10:39)
[2016-11-19] MEDS: Furosemide 20 MG/2 ML VIAL IVP SCH ×2 (10:39→16:36)
[2016-11-19] MEDS ORDERED: Naloxone 0.4 MG/ML INJ IVP PRN (11:39)
[2016-11-19] MEDS ORDERED: Bisacodyl 10 MG RECTAL SUPPOSITORY RC PRN (11:39)
[2016-11-19] MEDS ORDERED: Lacri-Lube 3.5 GM TUBE BOTH EYES PRN (11:39)
[2016-11-19] MEDS ORDERED: D5% in Water 1,000 ML IV PRN (11:39)
[2016-11-19] MEDS ORDERED: *HR* Dextrose 50 % in Water (Syg) 50 ML SYRINGE IVP PRN (11:39)
[2016-11-19] MEDS ORDERED: Dextrose Gel 15 GM PO PRN ×2 (11:39)
--- NOTE | 2016-11-19 17:53 | Event Note ---
Date of Encounter: 11/19/16 Time of Encounter: 14:00 Patient was transferred from the ICU today. I evaluated the patient at the bedside. He reports 0/10 shortness of breath right now. He has mild cough. On exam he is in no acute distress, awake alert oriented 3, heart regular rhythm and rhythm S1-S2, lungs with bilateral expiratory wheezes abdomen soft nontender nondistended. Extremities with no edema. Skin with no rashes no open wounds. Plan: We will continue with ceftriaxone for pneumococcal pneumonia, discontinue Oseguera, continue with inhaled bronchodilators and oral prednisone for COPD.
[2016-11-19] MEDS ORDERED: Chlorhexidine Rinse 15 ML MOUTHWASH MM SCH (21:00)
[2016-11-20] MEDS: Ipratropium/Albuterol Neb 3 ML IH SCH ×7 (00:18→23:10)
[2016-11-20] MEDS: Insulin LISPRO 300 UNITS/3 ML VIAL SQ SCH ×5 (00:35→23:41)
[2016-11-20] MEDS: *HR* Heparin 5,000 UNIT/ML VIAL SQ SCH ×4 (00:36→23:39)
[2016-11-20] MEDS: Furosemide 20 MG/2 ML VIAL IVP SCH ×2 (07:42→17:53)
[2016-11-20] MEDS: predniSONE 20 MG TABLET PO SCH (07:43)
[2016-11-20 08:10] LABS: Eosinophils # 0.2 K/mcL (0.0-0.6); Hematocrit 35.7 % (37.5-50.1); Hemoglobin 11.7 g/dL (12.9-16.9); Mean Corpuscular HGB Conc 32.8 g/dL (31.6-35.5); Mean Corpuscular Volume 88.4 fL (83.0-100.0); Mean Platelet Volume 10.4 fL (9.4-12.4); Platelet Count 634 K/mcL (140-400); Red Blood Count 4.04 M/mcL (4.19-5.50); Red Cell Distribution Width 15.3 % (11.5-14.5)
[2016-11-20 08:11] LABS: BUN/Creatinine Ratio 26 (6-26); Blood Urea Nitrogen 16 mg/dL (8-26); Calcium 8.9 mg/dL (8.6-10.8); Carbon Dioxide 32 mEq/L (19-29); Chloride 99 mEq/L (98-109); Glucose 131 mg/dL (70-99); Magnesium 1.6 mg/dL (1.6-2.6); Osmolality,Calculated 297 (280-300); Potassium 3.7 mEq/L (3.5-4.5); Sodium 142 mEq/L (136-145); eGFR For African Americans > 60 (> 60); eGFR For Non-African Americans > 60 (> 60)
--- NOTE | 2016-11-20 09:51 | Pulmonology Progress Note ---
Date of Encounter: 11/20/16 Time of Encounter: 08:10 Assessment and Plan (1) Chronic respiratory failure with hypoxia Current Visit: Yes Status: Chronic Patient on home O2 and he is at his baseline now. Continue O2 to keep SPO2 around 90%. Will follow up PRN Patient can follow up as outpatient Pulm rehab is recommend when patient is discharged home (2) COPD exacerbation Current Visit: Yes Status: Resolved Continue bronchodilators and taper systemic steroid Subjective Principal diagnosis: Acute Resp Failure Interval history: Patient is feeling and breathing better Objective PUL Vital signs: Last Vital Signs Temp 98.3 F 11/20/16 07:39 Pulse 90 11/20/16 07:59 Resp 18 11/20/16 07:39 BP 147/85 11/20/16 07:39 Pulse Ox 100 11/20/16 07:39 General appearance: no acute distress Eyes: nonicteric Mallampati (class): 2 Neck: supple Effort: normal Auscultation: bilateral: diminished breath sounds Cardiovascular: regular rate and rhythm Gastrointestinal: normoactive bowel sounds Extremities: no cyanosis normal mental status mood appropriate Results - Laboratory Findings CBC and BMP: 11/20/16 07:48 11/20/16 07:48 ABG ABG pH 7.48 pH Units (7.32-7.45) H 11/16/16 04:46 ABG pCO2 52 mmHg (35-45) H 11/16/16 04:46 ABG pO2 53 mmHg (85-104) L 11/16/16 04:46 ABG O2 Saturation 90 % (95-98) L 11/16/16 04:46 PT/INR, D-dimer PT 12.6 Seconds (9.4-12.1) H 11/10/16 07:23 Abnormal lab findings: Abnormal lab results RBC 4.04 M/mcL (4.19-5.50) L 11/20/16 07:48 Hgb 11.7 g/dL (12.9-16.9) L 11/20/16 07:48 Hct 35.7 % (37.5-50.1) L 11/20/16 07:48 RDW 15.3 % (11.5-14.5) H 11/20/16 07:48 Plt Count 634 K/mcL (140-400) H 11/20/16 07:48 Neutrophils # 10.9 K/mcL (1.6-8.9) H 11/17/16 03:29 Monocytes # 1.8 K/mcL (0.0-1.3) H 11/17/16 03:29 Nucleated RBCs/100 WBC 0.3 /100 WBC (0) H 11/11/16 02:42 Large Platelets Present (Not Present) A 11/16/16 03:54 Polychromasia 1+ (Not Present) A 11/16/16 03:54 Hypochromasia Present (Not Present) A 11/12/16 04:06 Basophilic Stippling 1+ (Not Present) A 11/16/16 03:54 PT 12.6 Seconds (9.4-12.1) H 11/10/16 07:23 APTT 17.4 Seconds (26.0-36.0) L 11/10/16 07:23 ABG pH 7.48 pH Units (7.32-7.45) H 11/16/16 04:46 ABG pCO2 52 mmHg (35-45) H 11/16/16 04:46 ABG pO2 53 mmHg (85-104) L 11/16/16 04:46 ABG HCO3 38.7 mEQ/L (21-27) H 11/16/16 04:46 ABG Total CO2 40.3 mEq/L (20-26) H 11/16/16 04:46 ABG O2 Saturation 90 % (95-98) L 11/16/16 04:46 ABG Base Excess 13.4 mEq/L (-2.0 to 3.0) H 11/16/16 04:46 Carbon Dioxide 32 mEq/L (19-29) H 11/20/16 07:48 Creatinine 0.62 mg/dL (0.72-1.25) L 11/20/16 07:48 Glucose 131 mg/dL (70-99) H 11/20/16 07:48 POC Glucose 103 (58-89) H 11/20/16 00:33 Troponin I 0.04 ng/mL (0-0.03) H* 11/10/16 07:23 B-Natriuretic Peptide 167 pg/mL (0-100) H 11/10/16 07:23 Serum Total Protein 4.9 g/dL (6.0-8.3) L 11/15/16 03:00 Albumin 1.8 g/dL (3.5-5.0) L 11/15/16 03:00 Albumin/Globulin Ratio 0.6 (1.1-2.2) L 11/15/16 03:00 Urine Clarity Cloudy (Clear) A 11/10/16 06:59 Ur Specific [place] 1.028 (1.010-1.025) H 11/10/16 06:59 Urine Protein 100 mg/dL (Neg-Trace) H 11/10/16 06:59 Urine Ketones 15 mg/dL (Negative) H 11/10/16 06:59 Urine Blood Large (Negative) H 11/10/16 06:59 Urine Microscopic RBC TNTC per hpf (0-3) H 11/10/16 06:59 Urine Microscopic WBC 5-15 per hpf (0-3) H 11/10/16 06:59 Ur Squamous Epith Cells Many per lpf (None-Few) H 11/10/16 06:59 Ur Culture Indicated? YES (NO) A 11/10/16 06:59 Vancomycin Trough 4.5 mcg/mL (10-20) L 11/10/16 07:40 - Clinical Findings Intake & Output: Intake & Output 11/19/16 11/20/16 11/20/16 23:59 07:59 15:59 Intake Total 240 / 240 Output Total 2300 / 2300 700 / 700 Balance -2059 / -2059 -700 / -700 Weight 66.1 kg Consult Discharge Plan - Plan Referrals: NO,PCP [Primary Care Provider] - [facility] [Non-Partnered Physician] - 12/05/16 9:15 am
[2016-11-20 10:42] LABS: Monocytes # 2.2 K/mcL (0.0-1.3); Neutrophils # 6.6 K/mcL (1.6-8.9); Platelet Estimate Increased (Normal); Reactive Lymphocytes Present (Not Present)
[2016-11-20 10:49] LABS: Platelet Clumps Few (Not Present)
--- NOTE | 2016-11-20 19:25 | Internal Med Progress Note ---
Date of Encounter: 11/20/16 Time of Encounter: 17:00 - Assessment and plan (1) Acute respiratory failure with hypercapnia Current Visit: Yes Status: Acute (2) Physical deconditioning Current Visit: Yes Status: Acute (3) Pneumonia Current Visit: Yes Status: Acute Assessment and plan: Plan Continue current medication causing patient about deep breathing discussed with staff about 10 incentive spirometry education check chest x-ray next morning PT /OT possible discharge next 24-hour need pulmonary rehabilitation on discharge Qualifiers: Pneumonia type: due to Pneumococcus Laterality: right Lung location: lower lobe of lung Qualified Code(s): J13 - Pneumonia due to Streptococcus pneumoniae - Subjective Interval history: Patient had continued to have shortness of breath. Dry cough. Patient denies any chest pain - Constitutional Vitals: Temp Pulse Resp BP Pulse Ox 97.8 F 79 18 143/86 92 L 11/20/16 16:36 11/20/16 16:36 11/20/16 18:09 11/20/16 16:36 11/20/16 18:09 - Neck Neck exam general surgery: Present: supple, trachea midline. Absent: lymphadenopathy - Respiratory Respiratory exam: Present: decreased breath sounds, prolonged expiratory phase, wheezes. Absent: accessory muscle use, rales, rhonchi - Cardiovascular Cardiovascular exam: Present: RRR, +S1, +S2. Absent: diastolic murmur, gallop, rubs, systolic murmur - GI/Abdominal GI/Abdominal exam: Present: normal bowel sounds, soft, no peritoneal signs. Absent: distended, tenderness - Extremities Exam Extremities exam: Present: warm. Absent: calf tenderness, cyanotic Internal Medicine: Result - Labs CBC & Chem 7: 11/20/16 07:48 11/20/16 07:48 Labs: Short CBC 11/20/16 Range/Units 07:48 WBC 10.0 (4.3-11.1) K/mcL Hgb 11.7 L (12.9-16.9) g/dL Hct 35.7 L (37.5-50.1) % Plt Count 634 H (140-400) K/mcL Neutrophils # 6.6 (1.6-8.9) K/mcL BMP 11/20/16 07:48 Sodium 142 Potassium 3.7 Chloride 99 Carbon Dioxide 32 H BUN 16 Creatinine 0.62 L Glucose 131 H Calcium 8.9 - ABG Interpretation ABG results: ABG ABG pH 7.48 pH Units (7.32-7.45) H 11/16/16 04:46 ABG pCO2 52 mmHg (35-45) H 11/16/16 04:46 ABG pO2 53 mmHg (85-104) L 11/16/16 04:46 ABG O2 Saturation 90 % (95-98) L 11/16/16 04:46 PT/INR, D-dimer PT 12.6 Seconds (9.4-12.1) H 11/10/16 07:23 Consult Discharge Plan - Plan Referrals: NO,PCP [Primary Care Provider] - [facility],PCP [Non-Partnered Physician] - 12/05/16 9:15 am
[2016-11-21] MEDS: Ipratropium/Albuterol Neb 3 ML IH SCH ×3 (03:00→10:57)
[2016-11-21 05:49] LABS: Basophils # 0.1 K/mcL (0.0-0.2); Basophils % 0.4 %; Eosinophils # 0.2 K/mcL (0.0-0.6); Eosinophils % 1.2 %; Hemoglobin 12.5 g/dL (12.9-16.9); Immature Granulocytes % 0.3 % (0-4); Lymphocytes # 2.2 K/mcL (0.6-4.6); Lymphocytes % 16.7 %; Mean Corpuscular HGB Conc 32.1 g/dL (31.6-35.5); Mean Corpuscular Hemoglobin 27.9 pg (28.0-33.3); Mean Corpuscular Volume 87.1 fL (83.0-100.0); Mean Platelet Volume 10.8 fL (9.4-12.4); Monocytes # 2.6 K/mcL (0.0-1.3); Monocytes % 19.9 %; Neutrophils # 7.9 K/mcL (1.6-8.9); Platelet Count 752 K/mcL (140-400); Red Blood Count 4.48 M/mcL (4.19-5.50); Red Cell Distribution Width 15.4 % (11.5-14.5); Segmented Neutrophils % 61.5 %
[2016-11-21] MEDS: Insulin LISPRO 300 UNITS/3 ML VIAL SQ SCH (05:57)
[2016-11-21 06:14] LABS: BUN/Creatinine Ratio 22 (6-26); Blood Urea Nitrogen 14 mg/dL (8-26); Calcium 9.4 mg/dL (8.6-10.8); Carbon Dioxide 30 mEq/L (19-29); Chloride 98 mEq/L (98-109); Glucose 113 mg/dL (70-99); Magnesium 1.8 mg/dL (1.6-2.6); Osmolality,Calculated 295 (280-300); Potassium 3.6 mEq/L (3.5-4.5); Sodium 142 mEq/L (136-145); eGFR For African Americans > 60 (> 60); eGFR For Non-African Americans > 60 (> 60)
[2016-11-21 06:29] LABS: Platelet Estimate Marked Increase (Normal); Toxic Granulation Present (Not Present); Toxic Vacuolation Present (Not Present)
[2016-11-21] MEDS: *HR* Heparin 5,000 UNIT/ML VIAL SQ SCH (07:43)
[2016-11-21] MEDS: predniSONE 20 MG TABLET PO SCH (07:46)
[2016-11-21] MEDS: Furosemide 20 MG/2 ML VIAL IVP SCH (07:57)
[2016-11-21 08:49] VITALS: BP 155/81
--- NOTE | 2016-11-21 17:56 | Discharge Summary ---
Date of Encounter: 11/21/16 Time of Encounter: 11:30 - Discharge Diagnosis (1) Acute respiratory failure with hypercapnia Priority: Primary Status: Acute (2) Elevated troponin Priority: Primary Status: Acute (3) Encephalopathy Priority: Primary Status: Resolved (4) GERD (gastroesophageal reflux disease) Priority: Secondary Status: Chronic Qualifiers: Esophagitis presence: esophagitis presence not specified Qualified Code(s) : K21.9 - Gastro-esophageal reflux disease without esophagitis (5) Hepatitis C Priority: Secondary Status: Chronic Qualifiers: Viral hepatitis chronicity: unspecified Hepatic coma status: without hepatic coma Qualified Code(s): B19.20 - Unspecified viral hepatitis C without hepatic coma (6) Pneumonia Priority: Primary Status: Acute Qualifiers: Pneumonia type: due to Pneumococcus Laterality: right Lung location: lower lobe of lung Qualified Code(s): J13 - Pneumonia due to Streptococcus pneumoniae (7) COPD exacerbation Priority: Primary Status: Resolved - Discharge Medications Home Medications: Albuterol Sulfate [Albuterol Inhaler] 2 puff IH Q6HR PRN 11/10/16 [History] Allopurinol [Zyloprim] 100 mg PO DAILY 11/10/16 [History] Atorvastatin Calcium [Lipitor] 40 mg PO DAILY 11/10/16 [History] Docusate Sodium [Dok] 100 mg PO BID PRN 11/10/16 [History] Furosemide [Lasix] 40 mg PO DAILY 11/10/16 [History] Guaifenesin [Mucus Relief] 400 mg PO BID PRN 11/10/16 [History] Ipratropium/Albuterol Neb [Duoneb] 3 ml IH Q6HR PRN 11/10/16 [History] Isosorbide MONOnitrate (24 HR) [Imdur] 30 mg PO DAILY 11/10/16 [History] LORazepam [Ativan] 0.5 mg PO BID 11/10/16 [History] Melatonin 3 mg PO HS 11/10/16 [History] Methocarbamol [Robaxin-750] 750 mg PO QID PRN 11/10/16 [History] Naproxen [Naprosyn] 500 mg PO BID 11/10/16 [History] Omeprazole [PriLOSEC] 20 mg PO DAILY 11/10/16 [History] Permethrin CRM [Elimite] 1 appl TP ONCE 11/10/16 [History] Polyvinyl Alcohol [Artificial Tears] 1 drop BOTH EYES QID 11/10/16 [History] Ranitidine HCl [Acid Environmental Conflict Manager] 150 mg PO BID 11/10/16 [History] Theophylline Anhydrous [Theophylline] 300 mg PO BID 11/10/16 [History] Tiotropium Br/Olodaterol HCl [Stiolto Respimat Inhal [place]] 2 puff IH DAILY [History] Triamcinolone Acet 0.1% CRM [Kenalog] 1 appl TP TID 11/10/16 [History] Allergies/Adverse Reactions: Allergies acetaminophen [From Vicodin] Allergy (Verified 11/10/16 06:00) See Comments Unknown Allergy hydrocodone [From Vicodin] Allergy (Verified 11/10/16 06:00) See Comments Unknown Allergy moxifloxacin Allergy (Verified 11/10/16 06:00) See Comments Unknown Allergy Date of admission: 11/10/16 08:29 Primary care physician: PCP NO Consults: 11/10/16 09:50 Consult to Nutrition [CONS] Routine Comment: Consulting Provider: NUTRITION Reason for Dietary Consult: MST Score Consult to Stocking And Box Shop Supervisor [CONS] Routine Reason for SW Consult: [facility] to [facility] 11/10/16 11:51 consult to cold working supervisor [Consult to Nutrition] [CONS] Routine Comment: Consulting Provider: NUTRITION Reason for Dietary Consult: TF Start and Manage 11/17/16 10:57 Consult to Occupational Therapy [CONS] Routine Comment: Evaluate, develop and implement POC Consult to Physical Therapy [CONS] Routine Comment: Evaluate, develop and implement POC 11/19/16 15:56 Consult to Hospitalist [CONS] Routine Consulting Provider: Hospitalist Gonzalez Reason for Consult: assume care out of ICU Time Notified: 15:57 Call Completed: Yes Discharging clinician: Christiana Mansfield Anticipated date of discharge: 11/21/16 - Patient Status Disposition: Left Against Medical Advice Condition: Fair Functional capacity at discharge: independent ambulation Overall status at discharge: patient is progressing back to baseline - Discharge Instructions Follow Up With: NO,PCP [Primary Care Provider] - [facility] [Non-Partnered Physician] - 12/05/16 9:15 am - Diet and Activity Activity: wear oxygen at all times Diet: low fat, low cholesterol, low salt diet Hospital course: Mr. Staunton is a 71 year old male with history of COPD who was initially admitted to ICU with acute respiratory failure and acute encephalopathy, requiring endotracheal intubation and mechanical ventilation. Chest x-ray showed evidence of right lower lobe pneumonia and he was started on IV hydration , IV antibiotics along with treatment for acute exacerbation of COPD with bronchodilators, IV steroids and inhaled corticosteroids. He was noted to have a grave prognosis and could not be weaned off the ventilator initially but he did well and improved slowly, was able to be weaned off ventilator and transferred to medical floor for further care. He is noted to be on continuous supplemental oxygen, requiring nocturnal BiPAP support. His ABG showed elevated PCO2 and he would benefit from nocturnal pulse oximetry study for BiPAP qualification. He is also noted to have leukocytosis and thrombocytosis today, possibly related to underlying sepsis from pneumonia and the use of IV steroids. He requires further care in the hospital to monitor his CBC and for BiPAP qualification, and he was explained the risks of leaving today. He verbalized understanding, however was adamant about leaving and signed the AMA papers and left with his son. - Time Spent with Patient Total time spent providing and/or coordinating discharge services: Greater than 30 minutes (45 min) - Constitutional Vitals: Temp Pulse Resp BP Pulse Ox 97.8 F 83 20 155/81 96 11/21/16 08:40 11/21/16 08:40 11/21/16 10:58 11/21/16 08:40 11/21/16 10:58 General appearance: Present: A&O X 3 (anxious to leave) - Respiratory Respiratory exam: Present: wheezes (Coarse breath sounds bilaterally with intermittent mild end-expiratory wheezing). Absent: accessory muscle use, rales , rhonchi - Cardiovascular Cardiovascular exam: Present: RRR, +S1, +S2. Absent: diastolic murmur, gallop, rubs, systolic murmur
[2016-11-21] MEDS ORDERED: *HR* LORazepam 0.5 MG TABLET PO SCH (21:00)
[2016-11-22] MEDS ORDERED: Furosemide 40 MG TABLET PO SCH (09:00)
== END 2016-11-21 11:40 | disposition left against medical advice (07) | DRG 870 ==
LOC: EMEROO 05:37 → ICNU 08:29 → SUATTDRO 08:29 → ICNU 09:00 → 2NNU 11-19 11:28
PROVIDERS: ADMIT Internal Medicine; ATTEND Internal Medicine

== ENCOUNTER 2017-01-22 19:31 | Inpatient (IN) ==
[~2017-01-22 19:31] MED LIST: *HR* Etomidate 20 MG/10 ML AMPUL IVP ONE; *HR* Midazolam HCl 5 MG/5 ML VIAL IVP ONE; *HR* Succinylcholine 200 MG/10 ML VIAL IVP ONE
[2017-01-22] MEDS ORDERED: methylPREDNISolone 125 MG/2 ML VIAL IVP ONE (19:36)
[2017-01-22] MEDS ORDERED: Ipratropium/Albuterol Neb 3 ML IH ONE (19:36)
[2017-01-22] MEDS ORDERED: 0.9 % Sodium Chloride 500 ML ONE (19:47)
[2017-01-22] MEDS ORDERED: 0.9 % Sodium Chloride 500 ML IVC ONE ×2 (19:47→21:12)
[2017-01-22] MEDS ORDERED: Propofol 500 MG/50 ML INFUS..BTL ONE (19:49)
[2017-01-22] MEDS ORDERED: *HR* Propofol 500 MG/50 ML BOTTLE IVP ONE (19:55)
[2017-01-22 19:56] LABS: Basophils % 0.2 %; Eosinophils % 0.1 %; Hematocrit 46.5 % (37.5-50.1); Hemoglobin 13.5 g/dL (12.9-16.9); Immature Granulocytes % 1.5 % (0-4); Immature Platelets 5.6 % (1.1-6.1); Lymphocytes # 0.6 K/mcL (0.6-4.6); Lymphocytes % 4.5 %; Mean Corpuscular Hemoglobin 27.4 pg (28.0-33.3); Mean Corpuscular Volume 94.5 fL (83.0-100.0); Mean Platelet Volume 9.7 fL (9.4-12.4); Monocytes % 8.2 %; Neutrophils # 10.8 K/mcL (1.6-8.9); Platelet Count 262 K/mcL (140-400); Red Blood Count 4.92 M/mcL (4.19-5.50); Red Cell Distribution Width 15.3 % (11.5-14.5); Segmented Neutrophils % 85.5 %
[2017-01-22] MEDS ORDERED: *HR* Etomidate 20 MG/10 ML AMPUL IVP ONE (19:57)
[2017-01-22] MEDS ORDERED: *HR* Succinylcholine 200 MG/10 ML VIAL IVP ONE (19:57)
[2017-01-22] MEDS ORDERED: Propofol 500 MG/50 ML INFUS..BTL IVC SCH (20:00)
[2017-01-22 20:01] LABS: Prothrombin Time 10.6 Seconds (9.4-12.1)
--- NOTE | 2017-01-22 20:03 | Emergency Department Note ---
Disposition Clinical Impression: Acute respiratory failure Qualifiers: Respiratory failure complication: unspecified whether with hypoxia or hypercapnia Qualified Code(s): J96.00 - Acute respiratory failure, unspecified whether with hypoxia or hypercapnia Disposition: Still a Patient Forms: ED Satisfaction Letter SOB HPI - General Chief Complaint: ED Shortness of Breath/Dyspnea Stated Complaint: RESP DISTRESS Time Seen by Provider: 01/22/17 19:36 Source: family, EMS Limitations: altered mental status Nursing Notes Reviewed: Yes Vital Signs Reviewed: Yes - History of Present Illness Please see Dr. Diop note for further details as I was involved in intubation. 71-year-old male history of heart failure and COPD presents to the ED via EMS for shortness of breath. Son is at bedside and assists with history. Reportedly patient has been short breath all day as worsened over the past hour. Son called 911, when EMS arrived he was in respiratory distress. He presents here on the CPAP saturations as low as 83%. One duoneb was given by EMS. Patient initially is awake but with labored breathing. Wheezing diffusely bilaterally. Elected to intubate with RSI. 20 etomidate and 110 succinylcholine. ETT 8 used, good visualization of cords. Tube was passed with good capnography, colorimetry, and bilaterally breath sounds. Propofol drip ordered - Related Data Home Medications Medication Instructions Recorded Confirmed Albuterol Sulfate [Albuterol 2 puff IH Q6HR PRN 11/10/16 11/10/16 Inhaler] Allopurinol [Zyloprim] 100 mg PO DAILY 11/10/16 11/10/16 Atorvastatin Calcium [Lipitor] 40 mg PO DAILY 11/10/16 11/10/16 Docusate Sodium [Dok] 100 mg PO BID PRN 11/10/16 11/10/16 Furosemide [Lasix] 40 mg PO DAILY 11/10/16 11/10/16 Guaifenesin [Mucus Relief] 400 mg PO BID PRN 11/10/16 11/10/16 Ipratropium/Albuterol Neb [Duoneb] 3 ml IH Q6HR PRN 11/10/16 11/10/16 Isosorbide MONOnitrate (24 HR) 30 mg PO DAILY 11/10/16 11/10/16 [Imdur] LORazepam [Ativan] 0.5 mg PO BID 11/10/16 11/10/16 Melatonin 3 mg PO HS 11/10/16 11/10/16 Methocarbamol [Robaxin-750] 750 mg PO QID PRN 11/10/16 11/10/16 Naproxen [Naprosyn] 500 mg PO BID 11/10/16 11/10/16 Omeprazole [PriLOSEC] 20 mg PO DAILY 11/10/16 11/10/16 Permethrin CRM [Elimite] 1 appl TP ONCE 11/10/16 11/10/16 Polyvinyl Alcohol [Artificial 1 drop BOTH EYES QID 11/10/16 11/10/16 Tears] Ranitidine HCl [Acid Berry Grower] 150 mg PO BID 11/10/16 11/10/16 Theophylline Anhydrous 300 mg PO BID 11/10/16 11/10/16 [Theophylline] Tiotropium Br/Olodaterol HCl 2 puff IH DAILY 11/10/16 11/10/16 [Stiolto Respimat Inhal [place]] Triamcinolone Acet 0.1% CRM 1 appl TP TID 11/10/16 11/10/16 [Kenalog] Allergies Allergy/AdvReac Type Severity Reaction Status Date / Time acetaminophen [From Vicodin] Allergy See Verified 11/10/16 06:00 Comments hydrocodone [From Vicodin] Allergy See Verified 11/10/16 06:00 Comments moxifloxacin Allergy See Verified 11/10/16 06:00 Comments Past Medical History - Past Medical History Medical history: Reports: COPD, coronary artery disease, GERD, hepatitis, hyperlipidemia Surgical history: Reports: angioplasty/stent Psychiatric history: Reports: anxiety - Social History Smoking Status: Current some day smoker Smokeless Tobacco Status: No Alcohol use: Reports: occasionally, recent Drug use: Reports: none Physical Exam - General Limitations: altered mental status General appearance: lethargic, in distress Course Vital Signs Temperature 97.6 F 01/22/17 19:33 Pulse Rate 118 01/22/17 19:33 Respiratory Rate 38 01/22/17 19:33 Blood Pressure 130/85 01/22/17 19:33 O2 Sat by Pulse Oximetry 83 01/22/17 19:33 Temperature 97.6 F 01/22/17 19:33 Pulse Rate 153 01/22/17 19:45 Respiratory Rate 16 01/22/17 19:45 Blood Pressure 85/56 01/22/17 19:45 O2 Sat by Pulse Oximetry 92 01/22/17 19:45 Oxygen Delivery Oxygen Delivery Ventilator Procedures - Intubation Time out performed: Yes sedative: Etomidate Mg Given: 20 paralytic: Succinylcholine Mg Given: 110 Laryngoscope: Annelise ET Tube Size: 8 ET Tube Uncuffed: No Tube Secured Depth (cm): 22 Tube Secured Location: lips Tube Placement Confirmation: visualized tube passing through cords, equal breath sounds bilaterally, no breath sounds over epigastrium, confirmation by capnometry Patient Tolerated Procedure: well Intubation Complications: none Shortness of Breath/Dyspnea - Lab Data Result diagrams: 01/22/17 19:49 01/22/17 19:49 Lab Results 01/22/17 01/22/17 01/22/17 Range/Units 19:49 19:49 19:49 WBC 12.7 H (4.3-11.1) K/mcL RBC 4.92 (4.19-5.50) M/mcL Hgb 13.5 (12.9-16.9) g/dL Hct 46.5 (37.5-50.1) % MCV 94.5 (83.0-100.0) fL MCH 27.4 L (28.0-33.3) pg MCHC 29.0 L (31.6-35.5) g/dL RDW 15.3 H (11.5-14.5) % Plt Count 262 (140-400) K/mcL MPV 9.7 (9.4-12.4) fL Immature Gran % 1.5 (0-4) % Seg Neutrophils % 85.5 % Lymphocytes % 4.5 % Monocytes % 8.2 % Eosinophils % 0.1 % Basophils % 0.2 % Neutrophils # 10.8 H (1.6-8.9) K/mcL Lymphocytes # 0.6 (0.6-4.6) K/mcL Monocytes # 1.0 (0.0-1.3) K/mcL Eosinophils # 0.0 (0.0-0.6) K/mcL Basophils # 0.0 (0.0-0.2) K/mcL Immature Plt Fraction 5.6 (1.1-6.1) % PT 10.6 (9.4-12.1) Seconds INR 1.0 APTT 31.2 (26.0-36.0) Seconds Sodium 142 (136-145) mEq/L Potassium 4.5 (3.5-4.5) mEq/L Chloride 87 L (98-109) mEq/L Carbon Dioxide 45 H* (19-29) mEq/L BUN 7 L (8-26) mg/dL Creatinine 0.79 (0.72-1.25) mg/dL Est GFR ( Amer) > 60 (> 60) Est GFR (Non-Af Amer) > 60 (> 60) BUN/Creatinine Ratio 9 (6-26) Glucose 143 H (70-99) mg/dL Calculated Osmolality 294 (280-300) Calcium 10.3 (8.6-10.8) mg/dL
--- NOTE | 2017-01-22 20:03 | Emergency Department Note ---
Disposition Clinical Impression: Acute respiratory failure with hypercapnia, HCAP (healthcare-associated pneumonia), Pleural effusion, bilateral Acute respiratory failure Qualifiers: Respiratory failure complication: unspecified whether with hypoxia or hypercapnia Qualified Code(s): J96.00 - Acute respiratory failure, unspecified whether with hypoxia or hypercapnia Disposition: Still a Patient Condition: Critical Time of Disposition: 22:43 SOB HPI - General Chief Complaint: ED Shortness of Breath/Dyspnea Stated Complaint: RESP DISTRESS Time Seen by Provider: 01/22/17 19:36 Source: family, EMS Mode of arrival: EMS Limitations: altered mental status Nursing Notes Reviewed: Yes Vital Signs Reviewed: Yes - History of Present Illness 71-year-old male shortness of breath, history of COPD and CHF on diuretics, patient started getting short of breath a few hours prior to arrival. Very little info from historian due to resp distress, information given that he has been altered and respiratory distress previously from son at bedside, some history is obtained from his family who state that he just started having trouble to breathe prior to arrival, EMS placed pateint on CPAP prior to arrival. Sats 92% on CPAP, severe distress wtih hypoxia tachypnea and diminished effort per EMS. 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: recent illness, occurred during exertion Severity: severe Improves with: oxygen Worsens with: exertion Known history of: COPD Treatment prior to arrival: oxygen, NIPPV Cough present: Yes Cough Description: Voluntary Cough Frequency: Intermittent - Related Data Home oxygen amount: 3 liters Home Medications Medication Instructions Recorded Confirmed Albuterol Sulfate [Albuterol 2 puff IH Q6HR PRN 11/10/16 01/22/17 Inhaler] Allopurinol [Zyloprim] 100 mg PO DAILY 11/10/16 01/22/17 Atorvastatin Calcium [Lipitor] 40 mg PO HS 11/10/16 01/22/17 Docusate Sodium [Dok] 100 mg PO BID PRN 11/10/16 01/22/17 Furosemide [Lasix] 40 mg PO DAILY 11/10/16 01/22/17 Guaifenesin [Mucus Relief] 400 mg PO BID PRN 11/10/16 01/22/17 Ipratropium/Albuterol Neb [Duoneb] 3 ml IH Q6HR PRN 11/10/16 01/22/17 Isosorbide MONOnitrate (24 HR) 30 mg PO DAILY 11/10/16 01/22/17 [Imdur] LORazepam [Ativan] 0.5 mg PO BID 11/10/16 01/22/17 Melatonin 3 mg PO HS 11/10/16 01/22/17 Methocarbamol [Robaxin-750] 750 mg PO QID PRN 11/10/16 01/22/17 Naproxen [Naprosyn] 500 mg PO BID PRN 11/10/16 01/22/17 Omeprazole [PriLOSEC] 20 mg PO DAILY 11/10/16 01/22/17 Polyvinyl Alcohol [Artificial 1 drop BOTH EYES QID 11/10/16 01/22/17 Tears] Ranitidine HCl [Acid Dry Color Mixer] 150 mg PO BID 11/10/16 01/22/17 Triamcinolone Acet 0.1% CRM 1 appl TP TID 11/10/16 01/22/17 [Kenalog] Acetaminophen [Tylenol] 1,000 mg PO BID PRN 01/22/17 01/22/17 Multivitamin [Multi-Day Vitamins] 1 each PO DAILY 01/22/17 01/22/17 Olodaterol HCl [Striverdi Respimat] 2 puff IH DAILY 01/22/17 01/22/17 Silver Sulfadiazine Cream 1 appl TP DAILY 01/22/17 01/22/17 [Silvadene] Simethicone [Gas-X] 80 mg PO TID PRN 01/22/17 01/22/17 Theophylline Anhydrous [Jose-24] 300 mg PO BID 01/22/17 01/22/17 Allergies Allergy/AdvReac Type Severity Reaction Status Date / Time acetaminophen [From Vicodin] Allergy See Verified 11/10/16 06:00 Comments hydrocodone [From Vicodin] Allergy See Verified 11/10/16 06:00 Comments moxifloxacin Allergy See Verified 11/10/16 06:00 Comments Limitations: ROS unobtainable due to patients medical condition Past Medical History - Past Medical History Source: unable to obtain, old records reviewed, obtained from family Medical history: Reports: COPD, coronary artery disease, GERD, hepatitis, hyperlipidemia Surgical history: Reports: angioplasty/stent Psychiatric history: Reports: anxiety - Social History Smoking Status: Current some day smoker Smokeless Tobacco Status: No Alcohol use: Reports: occasionally, recent Drug use: Reports: none Physical Exam Constitutional: Severe respiratory distress, hypoxic and hypercapnic, HEENT: Edentulous Neck: normal inspection, neck is supple, trachea midline no evidence of JVD Resp: Coarse breath sounds bilaterally, diminished at the bases, scattered wheezes. Increased work of breathing and tachypnea CV: Tachycardic, no m/g/r GI: normal inspection, Soft, NTND, BS present Back: normal inspection, no tenderness to palpation Neuro: GCS of 10, [id number] moves all extremities Skin: No rashes, skin warm, dry, intact - General Limitations: altered mental status General appearance: lethargic, in distress Course Course Narrative: 71-year-old male in acute respiratory distress, patient was intubated at bedside with Dr. Fontaine and Dr. Acuna attending physician, due to altered mental state, worsening respiratory distress, intubation was performed with etomidate and succinylcholine, 1 attempt, see Dr. Fontaine's intubation note. Patient will be placed on Cindy Van drip, IV fluid bolus 500 mL, no additional fluid bolus given respiratory distress, concern for volume overload, chest x-ray shows trace bilateral pleural effusions, there is a CHF history as well. We will admit to the ICU, waiting for lab work and patient stabilization. - Reevaluation(s) Reevaluation #1: Admitted to Dr Mtz patient placed on 60mcg/kg/min diprivan tolerated with BP but still biting ETT will add 6mg IV Vec, Central line for BP control no pressors indicated at this time, but patient ot go to ICU, empiric ABx placed for HCAP, no 30ml/kg bolus was given due to the patient's concern for volume status history of CHF on diuretics and concern for volume overload, he did get 1500 mL in the ED and this support his blood pressure well however given his multiple respiratory complaints and concern for volume overload in setting of resp distress, did not give a full 30 mL/kg bolus for sepsis. Reevaluation #2: Central line R IJ placed cleared for use, patient diprivan was down to 20mg/kg/ min back up to 40 after patient agitaiton, hospitalist placed restraits soft UE orders will add tese at this time for patient protection going to ICU 9 in stable condition. Time: 21:53 Vital Signs Temperature 97.6 F 01/22/17 19:33 Pulse Rate 118 01/22/17 19:33 Respiratory Rate 38 01/22/17 19:33 Blood Pressure 130/85 01/22/17 19:33 O2 Sat by Pulse Oximetry 83 01/22/17 19:33 Temperature 97.6 F 01/22/17 19:33 Pulse Rate 119 01/22/17 21:05 Respiratory Rate 12 01/22/17 21:05 Blood Pressure 137/75 01/22/17 21:05 O2 Sat by Pulse Oximetry 97 01/22/17 21:05 Oxygen Delivery Oxygen Delivery Ventilator Shortness of Breath/Dyspnea - MDM Narrative Medical decision making narrative: 71-year-old male admitted for acute on chronic respiratory failure, central line placed, intubation in the ED, patient admitted to the hospital service to the ICU was in stable but critical condition at the time of ED dispo - Differential Diagnosis Likely: acute exacerbation of chronic obstructive airways disease, pneumonia, asthma with exacerbation - Medical Records Medical records reviewed: Yes I reviewed the patient's medical records. - Lab Data Lab results reviewed: Yes I reviewed the patient's lab results. Result diagrams: 01/22/17 19:49 01/22/17 19:49 Lab Results 01/22/17 01/22/17 01/22/17 Range/Units 19:49 19:49 19:49 WBC 12.7 H (4.3-11.1) K/mcL RBC 4.92 (4.19-5.50) M/mcL Hgb 13.5 (12.9-16.9) g/dL Hct 46.5 (37.5-50.1) % MCV 94.5 (83.0-100.0) fL MCH 27.4 L (28.0-33.3) pg MCHC 29.0 L (31.6-35.5) g/dL RDW 15.3 H (11.5-14.5) % Plt Count 262 (140-400) K/mcL MPV 9.7 (9.4-12.4) fL Immature Gran % 1.5 (0-4) % Seg Neutrophils % 85.5 % Lymphocytes % 4.5 % Monocytes % 8.2 % Eosinophils % 0.1 % Basophils % 0.2 % Neutrophils # 10.8 H (1.6-8.9) K/mcL Lymphocytes # 0.6 (0.6-4.6) K/mcL Monocytes # 1.0 (0.0-1.3) K/mcL Eosinophils # 0.0 (0.0-0.6) K/mcL Basophils # 0.0 (0.0-0.2) K/mcL Immature Plt Fraction 5.6 (1.1-6.1) % PT (9.4-12.1) Seconds INR APTT (26.0-36.0) Seconds ABG pH (7.32-7.45) pH Units ABG pCO2 (35-45) mmHg ABG pO2 (85-104) mmHg ABG HCO3 (21-27) mEQ/L ABG Total CO2 (20-26) mEq/L ABG O2 Saturation (95-98) % ABG Base Excess (-2.0 to 3.0) mEq/L Blood Gas Modality Inspired O2 % Sodium 142 (136-145) mEq/L Potassium 4.5 (3.5-4.5) mEq/L Chloride 87 L (98-109) mEq/L Carbon Dioxide 45 H* (19-29) mEq/L BUN 7 L (8-26) mg/dL Creatinine 0.79 (0.72-1.25) mg/dL Est GFR ( Amer) > 60 (> 60) Est GFR (Non-Af Amer) > 60 (> 60) BUN/Creatinine Ratio 9 (6-26) Glucose 143 H (70-99) mg/dL Calculated Osmolality 294 (280-300) Calcium 10.3 (8.6-10.8) mg/dL Ammonia (18-72) mcmol/L Troponin I 0.02 (0-0.03) ng/mL B-Natriuretic Peptide (0-100) pg/mL Urine Color (Yellow) Urine Clarity (Clear) Urine pH (5.0-8.0) pH Units Ur Specific [place] (1.010-1.025) Urine Protein (Neg-Trace) mg/dL Urine Glucose (UA) (Normal) mg/dL Urine Ketones (Negative) mg/dL Urine Blood (Negative) Urine Nitrite (Negative) Urine Bilirubin (Negative) Urine Urobilinogen (Normal) mg/dL Ur Leukocyte Esterase (Negative) Urine Microscopic RBC (0-3) per hpf Urine Microscopic WBC (0-3) per hpf Ur Squamous Epith Cells (None-Few) per lpf Urine Bacteria (None-Few) per hpf Hyaline Casts (None-Few) per lpf Blood Type Antibody Screen 01/22/17 01/22/17 01/22/17 Range/Units 19:49 19:49 19:49 WBC (4.3-11.1) K/mcL RBC (4.19-5.50) M/mcL Hgb (12.9-16.9) g/dL Hct (37.5-50.1) % MCV (83.0-100.0) fL MCH (28.0-33.3) pg MCHC (31.6-35.5) g/dL RDW (11.5-14.5) % Plt Count (140-400) K/mcL MPV (9.4-12.4) fL Immature Gran % (0-4) % Seg Neutrophils % % Lymphocytes % % Monocytes % % Eosinophils % % Basophils % % Neutrophils # (1.6-8.9) K/mcL Lymphocytes # (0.6-4.6) K/mcL Monocytes # (0.0-1.3) K/mcL Eosinophils # (0.0-0.6) K/mcL Basophils # (0.0-0.2) K/mcL Immature Plt Fraction (1.1-6.1) % PT 10.6 (9.4-12.1) Seconds INR 1.0 APTT 31.2 (26.0-36.0) Seconds ABG pH (7.32-7.45) pH Units ABG pCO2 (35-45) mmHg ABG pO2 (85-104) mmHg ABG HCO3 (21-27) mEQ/L ABG Total CO2 (20-26) mEq/L ABG O2 Saturation (95-98) % ABG Base Excess (-2.0 to 3.0) mEq/L Blood Gas Modality Inspired O2 % Sodium (136-145) mEq/L Potassium (3.5-4.5) mEq/L Chloride (98-109) mEq/L Carbon Dioxide (19-29) mEq/L BUN (8-26) mg/dL Creatinine (0.72-1.25) mg/dL Est GFR ( Amer) (> 60) Est GFR (Non-Af Amer) (> 60) BUN/Creatinine Ratio (6-26) Glucose (70-99) mg/dL Calculated Osmolality (280-300) Calcium (8.6-10.8) mg/dL Ammonia (18-72) mcmol/L Troponin I (0-0.03) ng/mL B-Natriuretic Peptide 92 (0-100) pg/mL Urine Color (Yellow) Urine Clarity (Clear) Urine pH (5.0-8.0) pH Units Ur Specific [place] (1.010-1.025) Urine Protein (Neg-Trace) mg/dL Urine Glucose (UA) (Normal) mg/dL Urine Ketones (Negative) mg/dL Urine Blood (Negative) Urine Nitrite (Negative) Urine Bilirubin (Negative) Urine Urobilinogen (Normal) mg/dL Ur Leukocyte Esterase (Negative) Urine Microscopic RBC (0-3) per hpf Urine Microscopic WBC (0-3) per hpf Ur Squamous Epith Cells (None-Few) per lpf Urine Bacteria (None-Few) per hpf Hyaline Casts (None-Few) per lpf Blood Type A NEGATIVE Antibody Screen NEGATIVE 01/22/17 01/22/17 01/22/17 Range/Units 19:55 20:00 20:33 WBC (4.3-11.1) K/mcL RBC (4.19-5.50) M/mcL Hgb (12.9-16.9) g/dL Hct (37.5-50.1) % MCV (83.0-100.0) fL MCH (28.0-33.3) pg MCHC (31.6-35.5) g/dL RDW (11.5-14.5) % Plt Count (140-400) K/mcL MPV (9.4-12.4) fL Immature Gran % (0-4) % Seg Neutrophils % % Lymphocytes % % Monocytes % % Eosinophils % % Basophils % % Neutrophils # (1.6-8.9) K/mcL Lymphocytes # (0.6-4.6) K/mcL Monocytes # (0.0-1.3) K/mcL Eosinophils # (0.0-0.6) K/mcL Basophils # (0.0-0.2) K/mcL Immature Plt Fraction (1.1-6.1) % PT (9.4-12.1) Seconds INR APTT (26.0-36.0) Seconds ABG pH 7.34 (7.32-7.45) pH Units ABG pCO2 111 H* (35-45) mmHg ABG pO2 455 H (85-104) mmHg ABG HCO3 59.9 H (21-27) mEQ/L ABG Total CO2 > 60.0 H (20-26) mEq/L ABG O2 Saturation 100 H (95-98) % ABG Base Excess 26.6 H (-2.0 to 3.0) mEq/L Blood Gas Modality [place] Inspired O2 100 % Sodium (136-145) mEq/L Potassium (3.5-4.5) mEq/L Chloride (98-109) mEq/L Carbon Dioxide (19-29) mEq/L BUN (8-26) mg/dL Creatinine (0.72-1.25) mg/dL Est GFR ( Amer) (> 60) Est GFR (Non-Af Amer) (> 60) BUN/Creatinine Ratio (6-26) Glucose (70-99) mg/dL Calculated Osmolality (280-300) Calcium (8.6-10.8) mg/dL Ammonia 75 H (18-72) mcmol/L Troponin I (0-0.03) ng/mL B-Natriuretic Peptide (0-100) pg/mL Urine Color Yellow (Yellow) Urine Clarity Cloudy A (Clear) Urine pH 6.0 (5.0-8.0) pH Units Ur Specific [place] 1.018 (1.010-1.025) Urine Protein 100 H (Neg-Trace) mg/dL Urine Glucose (UA) Normal (Normal) mg/dL Urine Ketones Negative (Negative) mg/dL Urine Blood Small H (Negative) Urine Nitrite Negative (Negative) Urine Bilirubin Negative (Negative) Urine Urobilinogen Normal (Normal) mg/dL Ur Leukocyte Esterase Negative (Negative) Urine Microscopic RBC 3-5 H (0-3) per hpf Urine Microscopic WBC 3-5 H (0-3) per hpf Ur Squamous Epith Cells Many H (None-Few) per lpf Urine Bacteria None Seen (None-Few) per hpf Hyaline Casts Few (None-Few) per lpf Blood Type Antibody Screen - Radiology Data Radiology results reviewed: Yes I reviewed the patient's radiology results. Chest X-Ray 04/03/17 19:36 IMPRESSION: 1. Endotracheal tube present with tip projecting 4 cm from the stephanie. 2. Small bilateral pleural effusions. D/ / Max Roberts MD / Max Roberts MD Interpreting Provider: Max Roberts MD - EKG Data EKG attestation: Yes I reviewed and interpreted this EKG. Rate: Reports: tachycardia (Sinus tachycardia rate of 135 AR 121 QRS [address] segment elevations or depressions, similar to previous EKG in November 10) [place]/QRS: Reports: normal Critical Care Time Critical Care Time: Yes Total Critical Care Time: 35 Attestation: Critical care time spent and airway management, blood pressure management, sedation. Attestation Statement - Attestation Attestation: I examined this patient and my medical decision-making was reviewed with the CODE OFFICIAL/PA/Advanced Practice Nurse/Resident Physician. I agree with the documented findings, disposition and treatment plan as described except to the extent set forth below. Patient seen in conjunction with the residents. Patient was in respiratory failure. Patient was electively intubated for respiratory failure.
[2017-01-22 20:04] LABS: Activated Partial Thrombo Time 31.2 Seconds (26.0-36.0)
[2017-01-22] MEDS: *HR* Midazolam HCl 2 MG/2 ML VIAL IVP ONE ×2 (20:06→22:26)
[2017-01-22 20:08] LABS: BUN/Creatinine Ratio 9 (6-26); Blood Urea Nitrogen 7 mg/dL (8-26); Calcium 10.3 mg/dL (8.6-10.8); Chloride 87 mEq/L (98-109); Glucose 143 mg/dL (70-99); Osmolality,Calculated 294 (280-300); Potassium 4.5 mEq/L (3.5-4.5); Sodium 142 mEq/L (136-145); eGFR For African Americans > 60 (> 60); eGFR For Non-African Americans > 60 (> 60)
[2017-01-22 20:08] LABS: ABG Base Excess 26.6 mEq/L (-2.0 to 3.0); ABG HCO3 59.9 mEQ/L (21-27); ABG Oxygen Saturation 100 % (95-98); ABG PH 7.34 pH Units (7.32-7.45); ABG PO2 455 mmHg (85-104); ABG TCO2 > 60.0 mEq/L (20-26)
[2017-01-22 20:10] LABS: Carbon Dioxide 45 mEq/L (19-29)
[2017-01-22 20:11] LABS: ABG PCO2 111 mmHg (35-45); Blood Gas FiO2 100 %
[2017-01-22] MEDS ORDERED: Vancomycin 1,000 MG in D5% in Water 250 ML IV ONE (20:15)
[2017-01-22] MEDS ORDERED: Piperacillin/Tazobactam 3.375 GM in D5% in Water (Mini-Bag+) 100 ML IVPB ONE (20:15)
[2017-01-22] MEDS ORDERED: Levofloxacin 750 MG/150 ML 750 MG/150 ML BAG IVPB ONE (20:15)
[2017-01-22] MEDS ORDERED: *HR* Vecuronium 10 MG VIAL IVP ONE (20:33)
[2017-01-22] MEDS ORDERED: 0.9 % Sodium Chloride 1,000 ML ONE (20:41)
[2017-01-22] MEDS ORDERED: Water for inj. (sterile) 10 ML IV ONE (20:52)
[2017-01-22] MEDS ORDERED: 0.9 % Sodium Chloride 1,000 ML IVC ONE (21:03)
[2017-01-22] MEDS ORDERED: Naloxone 0.4 MG/ML INJ IVP PRN (21:07)
[2017-01-22] MEDS ORDERED: Ondansetron 4 MG/2 ML VIAL IVP PRN (21:07)
[2017-01-22] MEDS ORDERED: Ketorolac 30 MG/ML VIAL IVP PRN (21:07)
[2017-01-22] MEDS ORDERED: Metoclopramide 10 MG/2 ML VIAL IVP STA (21:07)
[2017-01-22] MEDS ORDERED: *HR* Morphine 2 MG/ML SYRINGE IVP PRN (21:07)
[2017-01-22] MEDS ORDERED: Nicotine 21 MG PATCH.TD24 TD PRN (21:17)
[2017-01-22] MEDS ORDERED: Lacri-Lube 3.5 GM TUBE BOTH EYES PRN (21:17)
--- NOTE | 2017-01-22 21:27 | Internal Med History&Physical ---
Date of Encounter: 01/22/17 Time of Encounter: 21:00 Assessment and Plan (1) Acute on chronic respiratory failure with hypoxia and hypercapnia Current visit: Yes Status: Acute . (2) Toxic metabolic encephalopathy Current visit: Yes Status: Acute . (3) Delirium due to conditions classified elsewhere Current visit: Yes Status: Acute . (4) CO2 narcosis Current visit: Yes Status: Acute . (5) Acute chronic obstructive pulmonary disease with respiratory failure Current visit: Yes Status: Acute . (6) Hypophosphatemia Current visit: Yes Status: Acute . (7) SIRS due to infectious process with acute organ dysfunction Current visit: Yes Status: Acute . (8) Chronic alcoholism Current visit: Yes Status: Chronic . (9) Hyperammonemia Current visit: Yes Status: Acute . (10) Metabolic alkalosis with respiratory acidosis Current visit: Yes Status: Acute . (11) Hepatitis C Current visit: Yes Status: Chronic . Qualifiers: Viral hepatitis chronicity: unspecified Hepatic coma status: without hepatic coma Qualified Code(s): B19.20 - Unspecified viral hepatitis C without hepatic coma (12) Sepsis Current visit: Yes Status: Acute . Qualifiers: Sepsis type: sepsis due to unspecified organism Qualified Code(s): A41.9 - Sepsis, unspecified organism (13) Protein-calorie malnutrition Current visit: Yes Status: Chronic . (14) Tobacco abuse disorder Current visit: Yes Status: Chronic . Internal Medicine - H&P: HPI Chief complaint: Confusion. Breathing difficulty. Admitted From: Emergency Dept Plans for Post Hospital Care: Home History of present illness: Mr. Guardado is a 71 year old male [facility] patient admitted to [facility] via the emergency department when he presented via EMS services from home in the company of family with reports of acute severe breathing difficulties. 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 Provided historical details of patient being confused and short of breath the entire day worse in the hour leading up to calling 911 for EMS support. Patient was found in extremis of respiratory distress and he was placed on CPAP during transition with saturations measured at 83%. DuoNeb was given by EMS staff in route. Upon arrival to the ED he was awake but with extreme labored respirations and diffuse wheezing bilaterally. Due to his extremitas of effort and work of breathing the ED attending opted for a intubation and ventilatory support. Readings at presentation temperature 97.5 pulse 118-153 respirations 16-38 BP 85 -1:30/56-85 O2 saturation 83-92% additionally from CPAP to 100% ventilator support. CBC 12.7 hemoglobin 13.5 platelets 262,000. RDW 15.3. Differential showed increase in neutrophils. Metabolic panel noted a chloride of 87. Carbon dioxide 45. BUN 17 creatinine 0.79. Glucose 143 osmolality 294. Troponin 0.02. PT 10.6 INR 1 PTT 31.2. O2 blood gas pH 7.34 PCO2 111 PO2 455 bicarbonate 59.9. O2 saturation 100% at inspired O2 100% mechanical ventilator support. BNP 92. Ammonia 75. Chest x-ray Cardiac Silhouette to Be Stable in Appearance. Mild Central Pulmonary Vascular Congestion. Blunting of Bilateral Costophrenic Angles Compatible with Bilateral Pleural Effusions. No Focal Consolidation Identified. No Pneumothorax Identified. Endotracheal Tube Present. Tip Projecting Centimeters from Zayda. Hearing Bilateral Interstitial Opacities. Osseous Structures without Acute Abnormality. Preliminary impression suggests acute on chronic severe hypercapnic-hypoxic respiratory failure in a patient with a well-documented in stage chronic respiratory failure continuous oxygen dependent. Patient's history is complicated by ongoing tobacco abuse disorder and ongoing chronic alcoholism. The impact of this has patient with extreme cachexia of end-stage pulmonary disease, severe protein caloric malnutrition and presents now with severe metabolic and electrolyte derangements as a consequence. Ongoing alcoholism and history of chronic hepatitis C may as well predisposed patient to ongoing cirrhotic liver disease as manifested by elevated ammonia. This contributes to his significant metabolic and toxic encephalopathy with delirium upon admission which is multifactorial. Systemic inflammatory response syndrome criteria are present at the time of admission. Sepsis is suspected at the time of admission due to acute on chronic bronchitis-bronchiolitis exacerbation in this patient. As he was recently hospitalized in October with similar presentation that fortunately did not require intubation and ventilator support he will be considered fully within the category of healthcare associated infection. He presents at increase risk for further clinical decline and morbidity for this presentation collect the findings and comorbid condition. Workup and treatment will proceed comprehensively. The patient was visited and examined. Cumulative laboratory and radiographic data base will be considered and discussed. Pertinent ancillary medical records including [facility], [facility] and [facility] documentation when available was reviewed and considered. Given the patient's presenting concerns, past medical history, clinical findings and symptoms, he is admitted at this time will undergo further evaluation and disposition. Orders were written as per Computerized physician video recorder mechanic system.......................................................................... .................... Consultative opinion will be sought as clinical circumstances justify. Patient has been admitted to the intensive care unit to receive higher level of care attention and intervention. Patient is intubated, sedated and receives continuous mechanical ventilatory support. Pain management needs will be addressed. Laboratory/radiographic data base will be updated as appropriate. Studies include: Cultures of blood and urine and sputum, negative cardiac injury panel, BNP, troponin metabolic and hematologic panel, magnesium phosphorus, ionized calcium, thyroid panel lipid profile, A1c C-peptide, CRP sedimentation rate, respiratory infection profile, respiratory virus panel, blood gas, lactic acid, serologies, etc. Precautions: Aspiration, fall, seizure, delirium protocol/surveillance initiated. CIWA/SAS guidelines placed as standing orders. Pending stabilization of patient 's cardiopulmonary status, weaning of current intravenous sedation and potential extubation. Telemetry with continuous hemodynamic monitoring and pulse oximetry initiated. Empiric antibiotic coverage: Intravenous vancomycin, Zosyn, Levaquin pending culture data. Special studies: CT/CTA chest, chest x-ray, telemetry, EKG, 2d echo. Pulmonary toilet: Incentive spirometry, aerosol bronchodilator, mucolytic, antitussive, supplemental oxygen. Corticosteroid therapy. CPAP/BiPAP supplemental oxygen delivery. Aerosol Mucomyst therapy. Fluid and electrolyte repletion efforts will proceed. Careful attention to fluid balance and renal recovery will be emphasized. Avoidance of nephrotoxic exposure and adverse drug drug interaction in the setting of impaired renal function will be monitored closely. Acute coronary syndrome protocol/surveillance initiated. DVT and PUD prophylaxis initiated: PPI therapy, intermittent pneumatic cuffs. Subcutaneous heparin. Early ambulation will be encouraged. Immunization updates recommended. Influenza and pneumococcal vaccinations as part of ongoing preventative healthcare recommendations strongly recommended. Smoking cessation counseling addressed. Patient will be initiated on nicotine substitution when circumstances permit.. Advanced care directive discussion addressed. Patient does not declare any healthcare restrictions per records at this time. Cardiovascular risk appraisal and cardiovascular risk reduction efforts will be emphasized. Physical/ occupational therapy may be asked to evaluate patient's functional capacity and progress mobility if circumstances justify. Nutrition consultation for consideration of feed initiation and management as depended on length of tenuous intubation and ventilatory requirement. Nutrition/dietary education, supplemental diet options and stimulants may be considered as circumstances justify. Outpatient medication schedules will be reviewed, confirmed and facilitated as appropriate. Reconciliation of home treatments including adjustments, substitutions and reintroduction into the treatment regimen will address necessary maintenance therapies for chronic pre-existing medical conditions. Plan of care has been reviewed and discussed in detail with the patient's caregivers. Questions addressed. Hospital course dictaed by clinical findings, treatment response and potential consultative interventions. Patient is a risk for further acute clinical decline and morbidity due to his age, frailty, chief complaints and comorbidities in setting of evolving multiorgan derangements.. Condition is serious/critical. Prognosis is guarded. CODE STATUS is full. Past Med Surg Social Fam HX - Past Medical History Source: old records reviewed Medical history: arthritis (History of gout.), cirrhosis, COPD (Chronic medical pulmonary disease with hypoxia and hypercapnia. Dependent on supplemental oxygen. Cachexia associated with chronic pulmonary disease.), coronary artery disease, GERD, hepatitis (History of hepatitis C.), hyperlipidemia, hypertension , liver disease, myocardial infarction, peripheral artery disease, renal disease , other (Hyperuricemia. Alcoholism. Chronic pain syndrome. Atopic dermatitis. Erectile dysfunction.) Psychiatric history: anxiety, other - Past Surgical History Surgical History: angioplasty/stent, other - Social History Smoking Status: Current some day smoker Smokeless Tobacco Status: No Alcohol use: occasionally, recent Drug use: none Occupational status: unemployed Current living situation: Home - Independent Activity Level: Independent ambulation, Mostly sedentary Recent Out of Country Travel Within the Last 8 Weeks: No Exposure or Possible Exposure to Illness During Travel: No Internal Medicine - H&P: Meds Albuterol Sulfate [Albuterol Inhaler] 2 puff IH Q6HR PRN 11/10/16 [History] Allopurinol [Zyloprim] 100 mg PO DAILY 11/10/16 [History] Atorvastatin Calcium [Lipitor] 40 mg PO HS 11/10/16 [History] Docusate Sodium [Dok] 100 mg PO BID PRN 11/10/16 [History] Furosemide [Lasix] 40 mg PO DAILY 11/10/16 [History] Guaifenesin [Mucus Relief] 400 mg PO BID PRN 11/10/16 [History] Ipratropium/Albuterol Neb [Duoneb] 3 ml IH Q6HR PRN 11/10/16 [History] Isosorbide MONOnitrate (24 HR) [Imdur] 30 mg PO DAILY 11/10/16 [History] LORazepam [Ativan] 0.5 mg PO BID 11/10/16 [History] Melatonin 3 mg PO HS 11/10/16 [History] Methocarbamol [Robaxin-750] 750 mg PO QID PRN 11/10/16 [History] Naproxen [Naprosyn] 500 mg PO BID PRN 11/10/16 [History] Omeprazole [PriLOSEC] 20 mg PO DAILY 11/10/16 [History] Polyvinyl Alcohol [Artificial Tears] 1 drop BOTH EYES QID 11/10/16 [History] Ranitidine HCl [Acid Staff Accountant] 150 mg PO BID 11/10/16 [History] Triamcinolone Acet 0.1% CRM [Kenalog] 1 appl TP TID 11/10/16 [History] Acetaminophen [Tylenol] 1,000 mg PO BID PRN 01/22/17 [History] Multivitamin [Multi-Day Vitamins] 1 each PO DAILY 01/22/17 [History] Olodaterol HCl [Striverdi Respimat] 2 puff IH DAILY 01/22/17 [History] Silver Sulfadiazine Cream [Silvadene] 1 appl TP DAILY 01/22/17 [History] Simethicone [Gas-X] 80 mg PO TID PRN 01/22/17 [History] Theophylline Anhydrous [Jose-24] 300 mg PO BID 01/22/17 [History] Allergies acetaminophen [From Vicodin] Allergy (Verified 11/10/16 06:00) See Comments Unknown Allergy hydrocodone [From Vicodin] Allergy (Verified 11/10/16 06:00) See Comments Unknown Allergy moxifloxacin Allergy (Verified 11/10/16 06:00) See Comments Unknown Allergy ROS unobtainable: due to mental status All Systems PM: A 10-system review of systems was performed and is negative for pertinent findings except as documented above in the HPI. The patient is acutely encephalopathic. Currently intubated and sedated on ventilator support due to acute on chronic respiratory failure complicated by severe hypercapnia-CO2 narcosis. Details of admission gathered from collective medical records, EMS notations and ED clinical staff triage. Allergies Allergy/AdvReac Type Severity Reaction Status Date / Time acetaminophen [From Vicodin] Allergy See Verified 11/10/16 06:00 Comments hydrocodone [From Vicodin] Allergy See Verified 11/10/16 06:00 Comments moxifloxacin Allergy See Verified 11/10/16 06:00 Comments Patient Problems (Last Updated 01/22/17 @ 21:37 by Saad Gordon MD) Acute respiratory failure (Acute Medical) J96.00 Pneumonia (Acute Medical) J18.9 COPD exacerbation (Resolved Medical) J44.1 DVT prophylaxis (Acute Medical) Altered mental status (Acute Medical) R41.82 Hepatitis C (Chronic Medical) B19.20 GERD (gastroesophageal reflux disease) (Chronic Medical) K21.9 Elevated troponin (Acute Medical) R79.89 Acute respiratory failure with hypercapnia (Acute Medical) J96.02 Encephalopathy (Resolved Medical) G93.40 Physical deconditioning (Acute Medical) R53.81 Chronic respiratory failure with hypoxia (Chronic Medical) J96.11 HCAP (healthcare-associated pneumonia) (Acute Medical) J18.9 Pleural effusion, bilateral (Acute Medical) J90 Acute chronic obstructive pulmonary disease with respiratory failure (Acute Medical) J96.00, J44.9 Acute on chronic respiratory failure with hypoxia and hypercapnia (Acute Medical ) J96.21, J96.22 CO2 narcosis (Acute Medical) R06.89 Delirium due to conditions classified elsewhere (Acute Medical) F05 Toxic metabolic encephalopathy (Acute Medical) G92 - Constitutional Constitutional: as per HPI - EENT Eyes: as per HPI Ears: as per HPI Nose, mouth and throat: as per HPI - Cardiovascular Cardiovascular ROS IM: as per HPI - Respiratory Respiratory: as per HPI - Gastrointestinal Gastrointestinal: as per HPI - Genitourinary Genitourinary ROS male: as per HPI - Musculoskeletal Musculoskeletal ROS IM: as per HPI - Integumentary Integumentary IM: as per HPI - Neurological Neurological ROS: as per HPI - Psychiatric Psychiatric: as per HPI - Endocrine Endocrine IM: as per HPI - Hematologic/Lymphatic Hematologic/Lymphatic: as per HPI - Allergic/Immunologic Allergic/Immunologic: as per HPI - Constitutional Vitals: Temp Pulse Resp BP Pulse Ox 97.6 F 119 14 137/75 97 01/22/17 19:33 01/22/17 21:05 01/22/17 21:05 01/22/17 21:05 01/22/17 21:05 Vital Signs Temp Pulse Resp BP Pulse Ox 01/22/17 21:05 119 14 137/75 97 01/22/17 20:44 115 16 97/60 94 01/22/17 20:40 119 82/61 01/22/17 20:31 86/47 95 01/22/17 20:23 134 101/86 01/22/17 20:10 136 14 115/80 94 01/22/17 20:08 142 16 107/60 95 01/22/17 19:55 136 16 168/119 95 01/22/17 19:50 155 12 86/56 93 01/22/17 19:45 153 16 85/56 92 01/22/17 19:33 97.6 F 118 38 130/85 83 Intake and Output 01/22/17 01/22/17 01/22/17 07:59 15:59 23:59 Intake Total 528.0 / 528.0 Balance 528.0 / 528.0 Intake: IV Fluids 528.0 / 528.0 0.9 % Sodium Chloride 500 500 / 500 ML @ 1875 mls/hr IVC . Q16M ONE Rx#:[id number] Diprivan 500 mg In 50 ml 28.0 / 28.0 @ 30 MCG/KG/MIN 11.431 mls/hr IVC .Q4H23M [facility] Rx #:[id number] Other: Weight 63.503 kg Patient Weight 01/22/17 23:59 Weight 63.503 kg General appearance: Present: cachectic, A&O X 0, disheveled, mild distress ( Intubated. Sedated. Ventilator support.), underweight. Absent: answers questions appropriately - Head Head exam: Present: atraumatic, normocephalic - Eye Eye exam: Present: EOMI, PERRL, conjuntiva pink, sclera anicteric Pupils: Present: normal accommodation, PERRL - ENT ENT exam: Present: mucous membranes dry, normal external ear exam, normal oropharynx - Neck Neck exam general surgery: Present: supple, trachea midline. Absent: lymphadenopathy - Respiratory Respiratory exam: Present: decreased breath sounds, prolonged expiratory phase, respiratory distress, rhonchi, wheezes. Absent: accessory muscle use, CTAB, rales, stridor - Cardiovascular Cardiovascular exam: Present: distant heart sounds, RRR, +S1, +S2. Absent: diastolic murmur, gallop, rubs, systolic murmur - GI/Abdominal GI/Abdominal exam: Present: normal bowel sounds, soft, no peritoneal signs. Absent: distended, tenderness - Extremities Exam Extremities exam: Present: warm, radial pulses palpable and symetrical. Absent : calf tenderness, cyanotic, pedal edema - Neurological Exam Neurological exam: Present: altered, CN II-XII intact, no focal deficits. Absent: alert, oriented X3, pronater drift, facial droop, speech deficit - Psychiatric Psychiatric exam: Present: flat affect - Skin Skin exam: Present: dry, excoriation, intact, rash, warm. Absent: petechiae, urticaria, vesicles Internal Med - H&P Results - Labs CBC & Chem 7: 01/23/17 04:00 01/23/17 04:00 Labs: Short CBC 01/22/17 Range/Units 19:49 WBC 12.7 H (4.3-11.1) K/mcL Hgb 13.5 (12.9-16.9) g/dL Hct 46.5 (37.5-50.1) % Plt Count 262 (140-400) K/mcL Neutrophils # 10.8 H (1.6-8.9) K/mcL BMP 01/22/17 Range/Units 19:49 Sodium 142 (136-145) mEq/L Potassium 4.5 (3.5-4.5) mEq/L Chloride 87 L (98-109) mEq/L Carbon Dioxide 45 H* (19-29) mEq/L BUN 7 L (8-26) mg/dL Creatinine 0.79 (0.72-1.25) mg/dL Glucose 143 H (70-99) mg/dL Calcium 10.3 (8.6-10.8) mg/dL Cardiac Enzymes 01/22/17 Range/Units 19:49 Troponin I 0.02 (0-0.03) ng/mL Abnormal lab results WBC 12.7 K/mcL (4.3-11.1) H 01/22/17 19:49 MCH 27.4 pg (28.0-33.3) L 01/22/17 19:49 MCHC 29.0 g/dL (31.6-35.5) L 01/22/17 19:49 RDW 15.3 % (11.5-14.5) H 01/22/17 19:49 Neutrophils # 10.8 K/mcL (1.6-8.9) H 01/22/17 19:49 ABG pCO2 111 mmHg (35-45) H* 01/22/17 19:55 ABG pO2 455 mmHg (85-104) H 01/22/17 19:55 ABG HCO3 59.9 mEQ/L (21-27) H 01/22/17 19:55 ABG Total CO2 > 60.0 mEq/L (20-26) H 01/22/17 19:55 ABG O2 Saturation 100 % (95-98) H 01/22/17 19:55 ABG Base Excess 26.6 mEq/L (-2.0 to 3.0) H 01/22/17 19:55 Chloride 87 mEq/L (98-109) L 01/22/17 19:49 Carbon Dioxide 45 mEq/L (19-29) H* 01/22/17 19:49 BUN 7 mg/dL (8-26) L 01/22/17 19:49 Glucose 143 mg/dL (70-99) H 01/22/17 19:49 Ammonia 75 mcmol/L (18-72) H 01/22/17 20:33 Laboratory Last Values WBC 12.7 K/mcL (4.3-11.1) H 01/22/17 19:49 RBC 4.92 M/mcL (4.19-5.50) 01/22/17 19:49 Hgb 13.5 g/dL (12.9-16.9) 01/22/17 19:49 Hct 46.5 % (37.5-50.1) 01/22/17 19:49 MCV 94.5 fL (83.0-100.0) 01/22/17 19:49 MCH 27.4 pg (28.0-33.3) L 01/22/17 19:49 MCHC 29.0 g/dL (31.6-35.5) L 01/22/17 19:49 RDW 15.3 % (11.5-14.5) H 01/22/17 19:49 Plt Count 262 K/mcL (140-400) 01/22/17 19:49 MPV 9.7 fL (9.4-12.4) 01/22/17 19:49 Immature Gran % 1.5 % (0-4) 01/22/17 19:49 Seg Neutrophils % 85.5 % 01/22/17 19:49 Lymphocytes % 4.5 % 01/22/17 19:49 Monocytes % 8.2 % 01/22/17 19:49 Eosinophils % 0.1 % 01/22/17 19:49 Basophils % 0.2 % 01/22/17 19:49 Neutrophils # 10.8 K/mcL (1.6-8.9) H 01/22/17 19:49 Lymphocytes # 0.6 K/mcL (0.6-4.6) 01/22/17 19:49 Monocytes # 1.0 K/mcL (0.0-1.3) 01/22/17 19:49 Eosinophils # 0.0 K/mcL (0.0-0.6) 01/22/17 19:49 Basophils # 0.0 K/mcL (0.0-0.2) 01/22/17 19:49 Immature Plt Fraction 5.6 % (1.1-6.1) 01/22/17 19:49 PT 10.6 Seconds (9.4-12.1) 01/22/17 19:49 INR 1.0 01/22/17 19:49 APTT 31.2 Seconds (26.0-36.0) 01/22/17 19:49 ABG pH 7.34 pH Units (7.32-7.45) 01/22/17 19:55 ABG pCO2 111 mmHg (35-45) H* 01/22/17 19:55 ABG pO2 455 mmHg (85-104) H 01/22/17 19:55 ABG HCO3 59.9 mEQ/L (21-27) H 01/22/17 19:55 ABG Total CO2 > 60.0 mEq/L (20-26) H 01/22/17 19:55 ABG O2 Saturation 100 % (95-98) H 01/22/17 19:55 ABG Base Excess 26.6 mEq/L (-2.0 to 3.0) H 01/22/17 19:55 Blood Gas Modality VENT 01/22/17 19:55 Inspired O2 100 % 01/22/17 19:55 Sodium 142 mEq/L (136-145) 01/22/17 19:49 Potassium 4.5 mEq/L (3.5-4.5) 01/22/17 19:49 Chloride 87 mEq/L (98-109) L 01/22/17 19:49 Carbon Dioxide 45 mEq/L (19-29) H* 01/22/17 19:49 BUN 7 mg/dL (8-26) L 01/22/17 19:49 Creatinine 0.79 mg/dL (0.72-1.25) 01/22/17 19:49 Est GFR ( Amer) > 60 (> 60) 01/22/17 19:49 Est GFR (Non-Af Amer) > 60 (> 60) 01/22/17 19:49 BUN/Creatinine Ratio 9 (6-26) 01/22/17 19:49 Glucose 143 mg/dL (70-99) H 01/22/17 19:49 Calculated Osmolality 294 (280-300) 01/22/17 19:49 Calcium 10.3 mg/dL (8.6-10.8) 01/22/17 19:49 Ammonia 75 mcmol/L (18-72) H 01/22/17 20:33 Troponin I 0.02 ng/mL (0-0.03) 01/22/17 19:49 B-Natriuretic Peptide 92 pg/mL (0-100) 01/22/17 19:49 - Impressions Chest X-Ray 01/22/17 19:36 IMPRESSION: 1. Endotracheal tube present with tip projecting 4 cm from the zayda. 2. Small bilateral pleural effusions. D/ / Max Roberts MD / Max Roberts MD Interpreting Provider: Max Roberts MD - Attending Attestation Allergies acetaminophen [From Vicodin] Allergy (Verified 11/10/16 06:00) See Comments Unknown Allergy hydrocodone [From Vicodin] Allergy (Verified 11/10/16 06:00) See Comments Unknown Allergy moxifloxacin Allergy (Verified 11/10/16 06:00) See Comments Unknown Allergy Home Medications Medication Instructions Recorded Confirmed Type Albuterol Sulfate [Albuterol 2 puff IH Q6HR PRN 11/10/16 11/10/16 History Inhaler] Allopurinol [Zyloprim] 100 mg PO DAILY 11/10/16 11/10/16 History Atorvastatin Calcium [Lipitor] 40 mg PO DAILY 11/10/16 11/10/16 History Docusate Sodium [Dok] 100 mg PO BID PRN 11/10/16 11/10/16 History Furosemide [Lasix] 40 mg PO DAILY 11/10/16 11/10/16 History Guaifenesin [Mucus Relief] 400 mg PO BID PRN 11/10/16 11/10/16 History Ipratropium/Albuterol Neb [Duoneb] 3 ml IH Q6HR PRN 11/10/16 11/10/16 History Isosorbide MONOnitrate (24 HR) 30 mg PO DAILY 11/10/16 11/10/16 History [Imdur] LORazepam [Ativan] 0.5 mg PO BID 11/10/16 11/10/16 History Melatonin 3 mg PO HS 11/10/16 11/10/16 History Methocarbamol [Robaxin-750] 750 mg PO QID PRN 11/10/16 11/10/16 History Naproxen [Naprosyn] 500 mg PO BID 11/10/16 11/10/16 History Omeprazole [PriLOSEC] 20 mg PO DAILY 11/10/16 11/10/16 History Permethrin CRM [Elimite] 1 appl TP ONCE 11/10/16 11/10/16 History Polyvinyl Alcohol [Artificial 1 drop BOTH EYES QID 11/10/16 11/10/16 History Tears] Ranitidine HCl [Acid Staff Accountant] 150 mg PO BID 11/10/16 11/10/16 History Theophylline Anhydrous 300 mg PO BID 11/10/16 11/10/16 History [Theophylline] Tiotropium Br/Olodaterol HCl 2 puff IH DAILY 11/10/16 11/10/16 History [Stiolto Respimat Inhal [place]] Triamcinolone Acet 0.1% CRM 1 appl TP TID 11/10/16 11/10/16 History [Kenalog] I & O 01/19/17 01/20/17 01/21/17 01/22/17 23:59 23:59 23:59 23:59 Intake Total 528.0 / 528.0 Balance 528.0 / 528.0 Weight 63.503 kg Intake: IV Fluids 528.0 / 528.0 0.9 % Sodium Chloride 500 500 / 500 ML @ 1875 mls/hr IVC . Q16M ONE Rx#:[id number] Diprivan 500 mg In 50 ml 28.0 / 28.0 @ 30 MCG/KG/MIN 11.431 mls/hr IVC .Q4H23M [facility] Rx #:[id number] Medications Albuterol Sulfate (Albuterol Inhaler) 2 puff IH Q2HR PRN PRN Reason: Shortness Of Breath/Wheezing Stop: 07/24/17 21:18 Albuterol Sulfate (Albuterol Inhaler) 4 puff IH [id number] [facility] Stop: 07/25/17 00:01 Artificial Tears (Lacri-Lube) 1 appl BOTH EYES Q4HR SERGEY PRN Reason: Protocol Stop: 07/25/17 00:01 Artificial Tears (Lacri-Lube) 1 appl BOTH EYES Q2HR PRN; Protocol PRN Reason: Dry Eyes Stop: 07/24/17 21:18 Bisacodyl (Dulcolax) 5 mg PO DAILY PRN PRN Reason: Constipation Stop: 07/24/17 21:08 Chlorhexidine Gluconate (Chlorhexidine Rinse) 15 ml MM BID [facility] Stop: 07/25/17 09:01 Docusate Sodium (Colace) 100 mg GTUBE BID [facility]GE[facility] Stop: 07/25/17 09:01 Enoxaparin Sodium (Lovenox) 30 mg SQ 0600 SERGEY PRN Reason: Protocol Stop: 07/25/17 06:01 Levofloxacin/Dextrose (Levaquin 750mg/150 Ml) 750 mg in 150 mls @ 100 mls/hr IVPB ONCE ONE PRN Reason: Protocol Stop: 01/22/17 21:44 Vancomycin HCl 1,000 mg/ (Dextrose) 250 mls @ 167 mls/hr IV ONCE ONE PRN Reason: Protocol Stop: 01/22/17 21:44 Propofol (Diprivan) 1,000 mg in 100 mls @ 11.431 mls/hr IVC .Q8H45M SERGEY; 30 MCG /KG/MIN PRN Reason: Protocol Stop: 07/24/17 20:01 Sodium Chloride (0.9 % Sodium Chloride) 500 mls @ 1,875 mls/hr IVC .Q16M ONE Stop: 01/22/17 21:27 Last Admin: 01/22/17 20:32 Dose: 1,875 mls/hr Sodium Chloride (0.9 % Sodium Chloride) 1,000 mls @ 100 mls/hr IVC .Q10H SERGEY Stop: 07/24/17 21:16 Levofloxacin/Dextrose (Levaquin 500mg/100ml) 500 mg in 100 mls @ 100 mls/hr IVPB DAILY SERGEY PRN Reason: Protocol Stop: 07/25/17 09:01 Propofol (Diprivan) 1,000 mg in 100 mls @ 1.905 mls/hr IVC .Q24H SERGEY; 5 MCG/KG/ MIN PRN Reason: Protocol Stop: 07/24/17 21:31 Ketorolac Tromethamine (Toradol) 15 mg IVP Q6HR PRN PRN Reason: Moderate Pain (4-6) Stop: 01/27/17 21:08 Lorazepam (Ativan) 1.5 mg 0.02 mg/kg (1.5 mg) IVP Q6H PRN PRN Reason: Agitation Stop: 07/24/17 21:08 Methylprednisolone (Solu-Medrol) 40 mg IVP Q6HR SERGEY Stop: 07/25/17 00:01 Morphine Sulfate (Morphine Sulfate) 2 mg IVP Q2H PRN PRN Reason: Moderate Pain (4-6) Stop: 07/24/17 21:08 Naloxone HCl (Narcan) 0.4 mg IVP Q2MIN PRN PRN Reason: Opioid Reversal Stop: 07/24/17 21:08 Nicotine (Nicoderm) 21 mg TD DAILY PRN PRN Reason: Nicotine Cravings Stop: 07/25/17 09:01 Nystatin (Mycostatin Suspension) 5 ml PO QID SERGEY Stop: 07/25/17 09:01 Ondansetron HCl (Zofran) 4 mg IVP Q6HR PRN; Protocol PRN Reason: Nausea And Vomiting Stop: 07/24/17 21:08 Pantoprazole Sodium (Protonix) 40 mg IVP DAILY SERGEY Stop: 07/25/17 09:01 Discontinued Medications Albuterol/Ipratropium (Duoneb) 9 ml IH ONCE ONE Stop: 01/22/17 19:37 Etomidate (Amidate) 20 mg IVP ONCE ONE Stop: 01/22/17 19:58 Last Admin: 01/22/17 19:44 Dose: 20 mg Sodium Chloride (0.9 % Sodium Chloride) 500 mls @ 1,875 mls/hr IVC .Q16M ONE Stop: 01/22/17 20:02 Last Infusion: 01/22/17 20:21 Dose: 0 mls/hr Sodium Chloride (0.9 % Sodium Chloride) Confirm Administered Dose 500 mls @ as directed .ROUTE .STK-MED ONE Stop: 01/22/17 19:48 Propofol (Diprivan) Confirm Administered Dose 500 mg in 50 mls @ as directed .ROUTE .STK-MED ONE Stop: 01/22/17 19:50 Propofol (Diprivan) 500 mg in 50 mls @ 11.431 mls/hr IVC .Q4H23M SERGEY; 30 MCG/KG /MIN PRN Reason: Protocol Stop: 07/24/17 20:01 Last Titration: 01/22/17 20:36 Dose: 20 mcg/kg/min, 7.62 mls/hr Propofol (Diprivan) 1,000 mg in 100 mls @ 1.905 mls/hr IVC .Q24H SERGEY; 5 MCG/KG/ MIN PRN Reason: Protocol Stop: 07/24/17 20:01 Piperacillin Sod/Tazobactam (Sod 3.375 gm/ Dextrose) 100 mls @ 100 mls/hr IVPB ONCE ONE PRN Reason: Protocol Stop: 01/22/17 21:14 Sodium Chloride (0.9 % Sodium Chloride) Confirm Administered Dose 1,000 mls @ as directed .ROUTE .STK-MED ONE Stop: 01/22/17 20:42 Last Admin: 01/22/17 20:40 Dose: 3,750 directed Sterile Water (Water For Inj. (Sterile)) Confirm Administered Dose 10 mls @ as directed IV .STK-MED ONE Stop: 01/22/17 20:53 Sodium Chloride (0.9 % Sodium Chloride) 1,000 mls @ 3,750 mls/hr IVC .Q16M ONE Stop: 01/22/17 21:18 Methylprednisolone (Solu-Medrol) 125 mg IVP ONCE ONE Stop: 01/22/17 19:37 Last Admin: 01/22/17 20:40 Dose: 125 mg Metoclopramide HCl (Reglan) 10 mg IVP ONCE STA Stop: 01/22/17 21:08 Midazolam HCl (Versed) 2.5 mg IVP ONCE ONE Stop: 01/22/17 20:05 Last Admin: 01/22/17 20:06 Dose: 2.5 mg Propofol (Diprivan) 60 mg 1 mg/kg (60 mg) IVP ONCE ONE Stop: 01/22/17 19:56 Last Admin: 01/22/17 19:52 Dose: 60 mg Succinylcholine Chloride (Quelicin) 110 mg IVP ONCE ONE Stop: 01/22/17 19:58 Last Admin: 01/22/17 19:45 Dose: 110 mg Vecuronium [place] (Norcuron) 6 mg IVP ONCE ONE Stop: 01/22/17 20:34 Last Admin: 01/22/17 21:02 Dose: 6 mg Nursing Notes 01/22/17 21:17 Pharmacy Note by Carrie Lofton Requested medication list from [facility]. Initialized on 01/22/17 21:17 - END OF NOTE 01/22/17 20:37 Nurse Note by Celeste Ledezma Dr. gave verbal order to start Propofol at 30 mcg/kg/min. Pt's BP at 2007 was 107/60. Dr. Acuna and Dr. Diop aware. Dr. Acuna requested verbally that the infusion be titrated to 60 mcg/kg/min at 2007. Initialized on 01/22/17 20:37 - END OF NOTE Orders 01/22/17 19:36 12 lead ECG assessment [RC] NOW BIPAP [RC] .ONCE Cardiac monitoring [RC] .ONCE Saline lock [RC] .ONCE Supplemental oxygen titration [RC] .ONCE Physician Instructions: Vital Signs Assessment [RC] PROTOCOL XR chest 1V portable [XR] Stat Mode Of Transportation: Portable Reason For Exam: dyspnea Exam Performed At:: [facility] Ipratropium/Albuterol Neb [Duoneb] 9 ml IH ONCE ONE MethylPREDNISolone [Solu-MEDROL] 125 mg IVP ONCE ONE ECG 12 lead ECG [ECG] Stat Mode Of Transportation: Portable Reason For Exam: dyspnea Exam Performed At:: [facility] 01/22/17 19:37 BIPAP/CPAP On/Off Times [RC] ONCE RT has an order or consult [RC] NOW 01/22/17 19:47 0.9 % Sodium Chloride 500 ml .ROUTE As Directed 0.9 % Sodium Chloride 500 ml IVC 1,875 mls/hr 01/22/17 19:49 Activated Partial Thrombo Time [COAG] Stat Comment: Specimen: Send someone from the department to collect B-Type Natriuretic Peptide Stat Comment: Specimen: Send someone from the department to collect Basic Metabolic Panel Stat Comment: Specimen: Send someone from the department to collect Complete Blood Count [HEME] Stat Comment: Specimen: Send someone from the department to collect Hold Sample For Possible T&C [BBK] Stat BBK Wristband Number: Prothrombin Time INR [COAG] Stat Comment: Specimen: Send someone from the department to collect Troponin I Stat Comment: Specimen: Send someone from the department to collect Propofol [Diprivan] 500 mg in 50 ml .ROUTE As Directed 01/22/17 19:54 RT has an order or consult [RC] NOW Ventilator settings [RC] .ONCE Ventilator Mode: A/C Rate:: 12 Ventilator Tidal Volume Settin FiO2:: 60 PEEP:: 10 Pressure Support:: 0 01/22/17 19:55 Arterial Blood Gas Stat Comment: Specimen: Send someone from the department to collect Propofol [Diprivan] 60 mg IVP ONCE ONE 01/22/17 19:57 RSI Kit at Bedside [RC] .ONCE Etomidate [Amidate] 20 mg IVP ONCE ONE Succinylcholine [Quelicin] 110 mg IVP ONCE ONE 01/22/17 20:00 Propofol [Diprivan] 1,000 mg in 100 ml IVC 5 mcg/kg/min Roland Scale of __: 5 Propofol [Diprivan] 500 mg in 50 ml IVC 30 mcg/kg/min Roland Scale of __: 6 01/22/17 20:04 Midazolam HCl [Versed] 2.5 mg IVP ONCE ONE 01/22/17 20:15 Levofloxacin 750 MG/150 ML [Levaquin 750mg/150 mL] 750 mg in 150 ml IVPB ONCE Piperacillin/Tazobactam [Zosyn] 3.375 gm D5% in Water (Mini-Bag+) [Dextrose 5 % (Minibag+) 100 ML] 100 ml IVPB ONCE Vancomycin [Vancocin] 1,000 mg D5% in Water [Dextrose 5%] 250 ml IV ONCE 01/22/17 20:[address] Stat Comment: Reason for Visit: acute resp failure 01/22/17 20:33 Ammonia Stat Comment: Specimen: Send someone from the department to collect Vecuronium [Norcuron] 6 mg IVP ONCE ONE 01/22/17 20:41 Central line,3 lumen cath tray [RC] .NOW 0.9 % Sodium Chloride 1,000 ml .ROUTE As Directed 01/22/17 20:52 Water for inj. (sterile) 10 ml IV As Directed 01/22/17 21:00 Propofol [Diprivan] 1,000 mg in 100 ml IVC 30 mcg/kg/min Roland Scale of __: 6 01/22/17 21:03 0.9 % Sodium Chloride 1,000 ml IVC 3,750 mls/hr 01/22/17 21:07 Admit as Inpatient Routine Estimated Total Length of Stay (Days): 7 Plans for Post Hospital Care: Home Inpatient Status Required: Still symptomatic/not sta Unresolved acute problem Explain each choice below Explain Concerns: The patient presents with acute illness and is at risk for decline due to comorbid conditions Potential Adverse Outcome: Respiratory Failure Cardiac Perfusion Is VTE Prophylaxis Indicated?: Yes Bed rest [RC] .ONCE Physician Instructions: Head of bed elevation [RC] .ONCE Intermittent pneumatic mayela [RC] .ONCE Intermit Pneumatic Compression Device: Calf Pumps Measure weight [RC] DAILY Oxygen via nasal cannula Nasal Cannula 2 lpm Comment: Peripheral IV [RC] CONT Activated Partial Thrombo Time [COAG] Stat Specimen: Send someone from the department to collect Comment: Arterial Blood Gas Stat Specimen: Send someone from the department to collect Comment: Complete Blood Count [HEME] Stat Specimen: Send someone from the department to collect Comment: Comprehensive Metabolic Panel Stat Specimen: Send someone from the department to collect Comment: Culture,Sputum with Gram Stain [RM] Stat Specimen: Send someone from the department to collect Comment: TEO Source: Sputum Specimen Description: Lactic Acid ([facility] Only) Stat Specimen: Send someone from the department to collect Comment: Magnesium Stat Specimen: Send someone from the department to collect Comment: Phosphorous Stat Specimen: Send someone from the department to collect Comment: Prothrombin Time INR [COAG] Stat Specimen: Send someone from the department to collect Comment: Urinalysis reflex Microscopic [URIN] Stat Specimen: Send someone from the department to collect Comment: Bisacodyl [Dulcolax] 5 mg PO DAILY PRN Ketorolac [Toradol] 15 mg IVP Q6HR PRN LORazepam [Ativan] 1.5 mg IVP Q6H PRN Metoclopramide [Reglan] 10 mg IVP ONCE STA Morphine [Morphine Sulfate] 2 mg IVP Q2H PRN Naloxone [Narcan] 0.4 mg IVP Q2MIN PRN Ondansetron [Zofran] 4 mg IVP Q6HR PRN 01/22/17 21:08 Cardiac Monitoring Med/Surg [RC] .CONT Telemetry Reason: ACS/CP Continuous pulse oximetry [RC] CONT Comment: Measure intake and output [RC] QSHIFT Measure weight [RC] DAILY 01/22/17 21:09 RT has an order or consult [RC] NOW NPO Diet Diet Modifications: 01/22/17 21:12 0.9 % Sodium Chloride 500 ml IVC 1,875 mls/hr 01/22/17 21:14 Culture,Blood [BC] Stat Quantity: 2 Specimen: Send someone from the department to collect Comment: TEO Source: Peripheral Venipuncture Specimen Description: Type and Screen [BBK] Stat Specimen: Send someone from the department to collect Comment: 01/22/17 21:15 XR chest 1V [XR] Routine Mode Of Transportation: Portable Reason For Exam: intubated/vent dep resp failure Exam Performed At:: [facility] Troponin I Q6H Specimen: Send someone from the department to collect Comment: 0.9 % Sodium Chloride 1,000 ml IVC 100 mls/hr Oseguera to gravity PROTOCOL Physician Instructions: Comment: 01/22/17 21:17 Assess sedation [RC] QSHIFT COPD Discharge Checklist [RC] .atdischarge Eye care [RC] Q4H Head of bed elevation [RC] .ONCE Head of Bed Elevation: 30 Degrees NG/OG tube insert/manage [RC] .ONCE Wall suction settings: Clamped Perform oral hygiene [RC] Q4H Consult to Nurse Navigator [CONS] Routine Comment: Consult to Nutrition [CONS] Routine Consulting Provider: NUTRITION Comment: Reason for Dietary Consult: TF Start and Manage Legionella Antigen [RM] Stat Specimen: Send someone from the department to collect Comment: TEO Source: Urine,Catheterized Specimen Description: S. Pneumoniae Antigen [RM] Stat Specimen: Send someone from the department to collect Comment: TEO Source: Urine,Catheterized Specimen Description: Albuterol Sulfate [Albuterol Inhaler] 2 puff IH Q2HR PRN Lacri-Lube 1 appl BOTH EYES Q2HR PRN Nicotine Patch [Nicoderm] 21 mg TD DAILY PRN 01/22/17 21:30 Propofol [Diprivan] 1,000 mg in 100 ml IVC 5 mcg/kg/min Roland Scale of __: 44 01/23/17 00:00 Albuterol Sulfate [Albuterol Inhaler] 4 puff IH [id number] Lacri-Lube 1 appl BOTH EYES Q4HR MethylPREDNISolone [Solu-MEDROL] 40 mg IVP Q6HR 01/23/17 03:15 Troponin I Q6H Specimen: Send someone from the department to collect Comment: 01/23/17 04:00 XR KUB [XR] Routine Mode Of Transportation: Portable Reason For Exam: intubated/vent dep resp failure Exam Performed At:: [facility] XR chest 1V [XR] Routine Mode Of Transportation: Portable Reason For Exam: intubated/vent dep resp failure Exam Performed At:: [facility] Arterial Blood Gas DAILY Specimen: Send someone from the department to collect Comment: Daily until off ventilator B-Type Natriuretic Peptide AM 0400 Specimen: Send someone from the department to collect Comment: Lactic Acid ([facility] Only) AM 0400 Specimen: Send someone from the department to collect Comment: Lipid Panel AM 0400 Specimen: Send someone from the department to collect Comment: 01/23/17 06:00 Enoxaparin [Lovenox] 30 mg SQ 0600 01/23/17 09:00 500mg IV Daily Levofloxacin 500 MG/100 ML [Levaquin 500mg/100mL] 500 mg in 100 ml IVPB DAILY Chlorhexidine Rinse 15 ml MM BID Docusate [Colace] 100 mg GTUBE BID Nystatin SUSP [Mycostatin Suspension] 5 ml PO QID Pantoprazole [Protonix] 40 mg IVP DAILY 01/23/17 09:15 Troponin I Q6H Specimen: Send someone from the department to collect Comment: 01/24/17 04:00 Arterial Blood Gas DAILY Specimen: Send someone from the department to collect Comment: Daily until off ventilator 01/25/17 04:00 Arterial Blood Gas DAILY Specimen: Send someone from the department to collect Comment: Daily until off ventilator 01/26/17 04:00 Arterial Blood Gas DAILY Specimen: Send someone from the department to collect Comment: Daily until off ventilator 01/27/17 04:00 Arterial Blood Gas DAILY Specimen: Send someone from the department to collect Comment: Daily until off ventilator 01/28/17 04:00 Arterial Blood Gas DAILY Specimen: Send someone from the department to collect Comment: Daily until off ventilator 01/29/17 04:00 Arterial Blood Gas DAILY Specimen: Send someone from the department to collect Comment: Daily until off ventilator 01/30/17 04:00 Arterial Blood Gas DAILY Specimen: Send someone from the department to collect Comment: Daily until off ventilator 01/31/17 04:00 Arterial Blood Gas DAILY Specimen: Send someone from the department to collect Comment: Daily until off ventilator Patient Problems (Last Updated 01/22/17 @ 20:23 by Carter Diop DO) Acute respiratory failure (Acute) Acute respiratory failure with hypercapnia (Acute) HCAP (healthcare-associated pneumonia) (Acute) Pleural effusion, bilateral (Acute) Vital Signs Temp Pulse Resp BP Pulse Ox 01/22/17 21:05 119 14 137/75 97 01/22/17 20:44 115 16 97/60 94 01/22/17 20:40 119 82/61 01/22/17 20:31 86/47 95 01/22/17 20:23 134 101/86 01/22/17 20:10 136 14 115/80 94 01/22/17 20:08 142 16 107/60 95 01/22/17 19:55 136 16 168/119 95 01/22/17 19:50 155 12 86/56 93 01/22/17 19:45 153 16 85/56 92 01/22/17 19:33 97.6 F 118 38 130/85 83 Laboratory Results 01/22/17 01/22/17 01/22/17 Range/Units 19:49 19:49 19:49 WBC 12.7 H (4.3-11.1) K/mcL RBC 4.92 (4.19-5.50) M/mcL Hgb 13.5 (12.9-16.9) g/dL Hct 46.5 (37.5-50.1) % MCV 94.5 (83.0-100.0) fL MCH 27.4 L (28.0-33.3) pg MCHC 29.0 L (31.6-35.5) g/dL RDW 15.3 H (11.5-14.5) % Plt Count 262 (140-400) K/mcL MPV 9.7 (9.4-12.4) fL Immature Gran % 1.5 (0-4) % Seg Neutrophils % 85.5 % Lymphocytes % 4.5 % Monocytes % 8.2 % Eosinophils % 0.1 % Basophils % 0.2 % Neutrophils # 10.8 H (1.6-8.9) K/mcL Lymphocytes # 0.6 (0.6-4.6) K/mcL Monocytes # 1.0 (0.0-1.3) K/mcL Eosinophils # 0.0 (0.0-0.6) K/mcL Basophils # 0.0 (0.0-0.2) K/mcL Immature Plt Fraction 5.6 (1.1-6.1) % PT (9.4-12.1) Seconds INR APTT (26.0-36.0) Seconds ABG pH (7.32-7.45) pH Units ABG pCO2 (35-45) mmHg ABG pO2 (85-104) mmHg ABG HCO3 (21-27) mEQ/L ABG Total CO2 (20-26) mEq/L ABG O2 Saturation (95-98) % ABG Base Excess (-2.0 to 3.0) mEq/L Blood Gas Modality Inspired O2 % Sodium 142 (136-145) mEq/L Potassium 4.5 (3.5-4.5) mEq/L Chloride 87 L (98-109) mEq/L Carbon Dioxide 45 H* (19-29) mEq/L BUN 7 L (8-26) mg/dL Creatinine 0.79 (0.72-1.25) mg/dL Est GFR ( Amer) > 60 (> 60) Est GFR (Non-Af Amer) > 60 (> 60) BUN/Creatinine Ratio 9 (6-26) Glucose 143 H (70-99) mg/dL Calculated Osmolality 294 (280-300) Calcium 10.3 (8.6-10.8) mg/dL Ammonia (18-72) mcmol/L Troponin I 0.02 (0-0.03) ng/mL B-Natriuretic Peptide (0-100) pg/mL 01/22/17 01/22/17 01/22/17 Range/Units 19:49 19:49 19:55 WBC (4.3-11.1) K/mcL RBC (4.19-5.50) M/mcL Hgb (12.9-16.9) g/dL Hct (37.5-50.1) % MCV (83.0-100.0) fL MCH (28.0-33.3) pg MCHC (31.6-35.5) g/dL RDW (11.5-14.5) % Plt Count (140-400) K/mcL MPV (9.4-12.4) fL Immature Gran % (0-4) % Seg Neutrophils % % Lymphocytes % % Monocytes % % Eosinophils % % Basophils % % Neutrophils # (1.6-8.9) K/mcL Lymphocytes # (0.6-4.6) K/mcL Monocytes # (0.0-1.3) K/mcL Eosinophils # (0.0-0.6) K/mcL Basophils # (0.0-0.2) K/mcL Immature Plt Fraction (1.1-6.1) % PT 10.6 (9.4-12.1) Seconds INR 1.0 APTT 31.2 (26.0-36.0) Seconds ABG pH 7.34 (7.32-7.45) pH Units ABG pCO2 111 H* (35-45) mmHg ABG pO2 455 H (85-104) mmHg ABG HCO3 59.9 H (21-27) mEQ/L ABG Total CO2 > 60.0 H (20-26) mEq/L ABG O2 Saturation 100 H (95-98) % ABG Base Excess 26.6 H (-2.0 to 3.0) mEq/L Blood Gas Modality VENT Inspired O2 100 % Sodium (136-145) mEq/L Potassium (3.5-4.5) mEq/L Chloride (98-109) mEq/L Carbon Dioxide (19-29) mEq/L BUN (8-26) mg/dL Creatinine (0.72-1.25) mg/dL Est GFR ( Amer) (> 60) Est GFR (Non-Af Amer) (> 60) BUN/Creatinine Ratio (6-26) Glucose (70-99) mg/dL Calculated Osmolality (280-300) Calcium (8.6-10.8) mg/dL Ammonia (18-72) mcmol/L Troponin I (0-0.03) ng/mL B-Natriuretic Peptide 92 (0-100) pg/mL 01/22/17 Range/Units 20:33 WBC (4.3-11.1) K/mcL RBC (4.19-5.50) M/mcL Hgb (12.9-16.9) g/dL Hct (37.5-50.1) % MCV (83.0-100.0) fL MCH (28.0-33.3) pg MCHC (31.6-35.5) g/dL RDW (11.5-14.5) % Plt Count (140-400) K/mcL MPV (9.4-12.4) fL Immature Gran % (0-4) % Seg Neutrophils % % Lymphocytes % % Monocytes % % Eosinophils % % Basophils % % Neutrophils # (1.6-8.9) K/mcL Lymphocytes # (0.6-4.6) K/mcL Monocytes # (0.0-1.3) K/mcL Eosinophils # (0.0-0.6) K/mcL Basophils # (0.0-0.2) K/mcL Immature Plt Fraction (1.1-6.1) % PT (9.4-12.1) Seconds INR APTT (26.0-36.0) Seconds ABG pH (7.32-7.45) pH Units ABG pCO2 (35-45) mmHg ABG pO2 (85-104) mmHg ABG HCO3 (21-27) mEQ/L ABG Total CO2 (20-26) mEq/L ABG O2 Saturation (95-98) % ABG Base Excess (-2.0 to 3.0) mEq/L Blood Gas Modality Inspired O2 % Sodium (136-145) mEq/L Potassium (3.5-4.5) mEq/L Chloride (98-109) mEq/L Carbon Dioxide (19-29) mEq/L BUN (8-26) mg/dL Creatinine (0.72-1.25) mg/dL Est GFR ( Amer) (> 60) Est GFR (Non-Af Amer) (> 60) BUN/Creatinine Ratio (6-26) Glucose (70-99) mg/dL Calculated Osmolality (280-300) Calcium (8.6-10.8) mg/dL Ammonia 75 H (18-72) mcmol/L Troponin I (0-0.03) ng/mL B-Natriuretic Peptide (0-100) pg/mL Assessments/Treatments Cardiac monitoring Start: 01/22/17 19: 32 Freq: Status: Active Document 01/22/17 19:33 [id number] (Rec: 01/22/17 19:43 [id number]) Cardiac Monitoring Heart Rate 118 Monitoring Method Telemetry Rhythm Sinus Tachycardia Monitor Number 21 Coal Deliverer Limits 50/120 Memory Cleared Yes Central Line Insertion Checklist Start: 01/22/17 21: 19 Freq: Status: Complete Document 01/22/17 21:19 TERESA (Rec: 01/22/17 21:21 [email or web address] [id number]) Central Line Insertion Checklist Central Line Insertion emergent Central Line Anatomical Insertion Site right internal jugular vein Central Line Insertion Location ER Catheter Type triple lumen catheter Time Out verify patient name and date of timeout performed per policy jose and assess the site assemble equipment and verify supplies perform hand hygiene Prep the Procedure Site apply chloraprep to the skin using a back and forth scrubbing motion apply chloraprep for 30 seconds (upper body), 1-2 min (femoral sites) allow prep to dry drape the patient with a full body drape During the Procedure clinician is wearing sterile gloves, cap, mask,& gown during insertion sterile field and sterile technique are maintained patient's face is covered with drape or mask and wearing a cap everyone in room is wearing a mask After the Procedure guidewire removed and visualized sterile technique is used to apply the dressing dressing is dated order radiographic imaging if necessary patient provided with education on central line infection prevention Name of Clinician Inserting Central Line Fara Clinician Assisting/Completing Checklist Ileana RN Date 01/22/17 Time 21:21 Central line, triple cath tray @ bedside Start: 01/22/17 20: 41 Freq: .NOW Status: Complete Document 01/22/17 21:19 CBRyley (Rec: 01/22/17 21:21 CB [id number]) ED Pain Assessment Start: 01/22/17 19: 32 Freq: Status: Complete Document 01/22/17 19:33 [id number] (Rec: 01/22/17 19:43 [id number]) Pain Assessment Pain Present Unable to Respond ED Shortness of Breath Assessment Start: 01/22/17 19: 32 Freq: Status: Complete Document 01/22/17 19:33 [id number] (Rec: 01/22/17 19:43 [id number]) Shortness of Breath Sepsis Infection Criteria Present suspected infection Sepsis SIRS Criteria RR > 20 rpm HR > 90 bpm Sepsis Organ Dysfunction Criteria new/unexplained change in Present mental status acute respiratory failure Sepsis Screen Severe Sepsis Risk Sepsis Action Taken provider notified Sepsis Name of Provider Notified Ronald Acuna Symptoms/Complaint Shortness of Breath Onset this morning Duration Constant Context Unknown Known History COPD Improves With Nothing Worsens With Nothing Associated Symptoms Wheezing Treatment Prior to Arrival Oxygen Bronchodilator Respiratory Depth Shallow Effort Labored Short of Breath Abdominal Breathing Tripoding Pattern Tachypnea Anterior & Posterior Bilateral Throughout Breath Sounds Diminished Expiratory Wheezing Level Of Consciousness Lethargic Disoriented Patient Behavior Passive Ability to Follow Directions Poor/Unable Impaired Cognition Yes Skin Temperature Cool Skin Moisture Dry Capillary Refill > 3 Seconds Intubation Tray at Bedside Start: 01/22/17 20: 02 Freq: Status: Complete Document 01/22/17 19:44 [id number] (Rec: 01/22/17 20:02 [id number]) Patient Rounding Start: 01/22/17 19: 32 Freq: Status: Complete Document 01/22/17 19:33 [id number] (Rec: 01/22/17 19:43 [id number]) Patient Rounding Safety Call Light Within Reach Bed Position Low Bed Brake On Side Rails Up X2 Are the Floors Free From Trip Hazards? Yes Is the Room Free From Clutter? Yes Patient Rounding Updated patient/family on Plan of Care Checked for Patient Positioning RSI Kit at Bedside Start: 01/22/17 19: 57 Freq: .ONCE Status: Complete Document 01/22/17 19:44 [id number] (Rec: 01/22/17 20:02 [id number]) RT Code/Intubation Start: 01/22/17 19: 55 Freq: Status: Active Document 01/22/17 19:40 KDC (Rec: 01/22/17 20:02 KDC [place] [id number]) Code/Intubation BVM Start Time 19:40 ETT Insertion Date 01/22/17 ETT Insertion Time 19:45 BMV to Intubation Time 5 Adjuncts Utilized Laryngoscope ETT Placement Confirmation Auscultation Bilateral Breath Sounds Exhaled CO2 Chest X-ray Visualized Cords Absence of Gastric Sounds Subglottic ETT Used Yes Endotracheal Tube Size (mm) 8.0 ETT Position at Lip (cm) (cm) 22 Number of Attempts 1 1st Attempt Yes 2nd Attempt No 3rd Attempt No 4th Attempt No Difficult Intubation No Unintentional Extubation No Intubated by RT* No Code Charge* No RT Standby* [address] Fontaine RT Continuous Pulse Oximetry Start: 01/22/17 19: 32 Freq: Status: Complete Document 01/22/17 19:33 [id number] (Rec: 01/22/17 19:43 [id number]) RT Ventilator settings Start: 01/22/17 19: 54 Freq: .ONCE Status: Active Document 01/22/17 19:50 KDC (Rec: 01/22/17 20:12 KDC [place] [id number]) Respiratory Therapy Pre Assessment SPO2 93 Heart rate 162 Respiratory Rate 12 BP (mm Hg) 86/56 Oxygen Delivery Method Mechanical Ventilation FIO2 100 Anterior & Posterior Bilateral Throughout Breath Sounds Expiratory Wheezing Ventilator Device ID [id number] Device Type 840 Ventilator New Vent S/U Yes ET Tube Insertion Date 01/22/17 ETT/Trach Size mm (mm) 8 ET Tube Secure Yes ET Tube Insertion Site Oral Endotracheal ETT Lip Location Right ETT Tube at Lip (cm) 22 ET Tube Retaped Yes Ventilator Mode A/C Set VT/PX ml/cmH2O 550 Set Respiratory Rate 12 PEEP/CPAP cmH2O (cm H2O) 5 FIO2 100 Peak Flow (lpm)/I-Time (sec) 70 I:E Ratio 1:4.5 Ventilator Sensitivity 2 HME Yes Saline lock insertion/management Start: 01/22/17 19: 32 Freq: Status: Active Document 01/22/17 19:33 [id number] (Rec: 01/22/17 19:43 [id number]) IV Insertion/Site Assessment IV Attempt 1 Successful Successful Blood drawn and sent to Lab No Left Antecubital IV Established [employer]IN[employer] EPIDEMIOLOGIST No Date of Insertion 01/22/17 Time of Insertion 19:35 Reason for IV Insertion Provide Access for IV Medication(s) Provide Access for Emergency IV Catheter Type Peripheral IV Gauge (gauge) 20 Site Observation Patent Dressing Applied Window Dressing Transparent Dressing Dry/Intact Patient Tolerance Tolerated Well Saline lock insertion/management Start: 01/22/17 19: 36 Freq: .ONCE Status: Complete Document 01/22/17 20:30 [id number] (Rec: 01/22/17 20:30 [id number]) IV Insertion/Site Assessment IV Attempt 1 Successful Successful Blood drawn and sent to Lab Yes Right Forearm IV Established [employer] EPIDEMI[employer]IST No Date of Insertion 01/22/17 Time of Insertion 20:25 Reason for IV Insertion Provide Access for IV Medication(s) Provide Access for Emergency IV Catheter Type Peripheral IV Gauge (gauge) 20 Site Observation Patent Dressing Applied Window Dressing Transparent Dressing Dry/Intact Patient Tolerance Tolerated Well Supplemental oxygen titration Start: 01/22/17 19: 36 Freq: .ONCE Status: Complete Document 01/22/17 20:31 [id number] (Rec: 01/22/17 20:31 [id number]) Oxygen Adminstration Oxygen Saturation 95 Oxygen Delivery Method Mechanical Ventilation Triage Start: 01/22/17 19: 32 Freq: Status: Complete Document 01/22/17 19:33 [id number] (Rec: 01/22/17 19:43 [id number]) Triage Chief Complaint triage ED Shortness of Breath/Dyspnea Patient Stated Complaint SOB CHALO 1 Onset (ago) Just [facility] EPIDEMIOLOGIST Description of Symptoms Pt's son states that the pt has been SOB all day, but the dyspnea got worse this past hour and he called 911. Pt in respiratory distress at time of arrival, EMS reports they gave one duo neb and started the pt on BiPap. Pt 83% on BiPap at time of arrival. Pt pale, cool, and dry. General Appearance lethargic in distress Work Related Injury? No Mode of arrival EMS Arrival via EMS [facility] EMS Source family EMS Limitations altered mental status Temperature (97.6 F-99.6 F) 97.6 F Temperature Source Axillary Pulse Rate 118 Respiratory Rate 38 Blood Pressure 130/85 O2 Sat by Pulse Oximetry 83 Oxygen Delivery Bipap Height 1.75 m Weight 63.503 kg Weight Measurement Method Estimated by Staff Pain Scale 0 Pain Scale Used Cogn. Impaired (0-8) Medical history COPD coronary artery disease GERD hepatitis hyperlipidemia Male surgical history no surgical history non-contributory Psychiatric history anxiety Smoking Status Current some day smoker Smokeless Tobacco Status No Alcohol Use occasionally recent Drug Use none Patient resides with/at Children Other Relative Do you currently feel hopless, have No: unable to thoughts of self harm, or thoughts of harming others History of fall in last 14 days? No Influenza vaccine up to date Yes Pneumonia vaccine up to date Yes Vital Signs Assessment Start: 01/22/17 19: 36 Freq: PROTOCOL Status: Active Document 01/22/17 19:45 [id number] (Rec: 01/22/17 19:50 [id number]) ED Vital Signs Pain Reported Unable to assess due to patient unable to respond Blood Pressure 85/56 Blood Pressure Location Right Arm Source Automatic Cuff Position Supine Pulse Rate 153 Respiratory Rate 16 Effort Retracting Pulse Oximetry 92 Oxygen Delivery Ventilator Document 01/22/17 19:45 [id number] (Rec: 01/22/17 21:00 [id number]) ED Vital Signs Pain Reported Unable to assess due to patient unable to respond Blood Pressure 85/56 Position Supine Pulse Rate 153 Document 01/22/17 19:50 [id number] (Rec: 01/22/17 21:02 [id number]) ED Vital Signs Pain Reported Unable to assess due to patient unable to respond Blood Pressure 91/62 Blood Pressure Location Right Arm Source Automatic Cuff Position Supine Pulse Rate 155 Document 01/22/17 19:55 [id number] (Rec: 01/22/17 21:03 [id number]) ED Vital Signs Pain Reported Unable to assess due to patient unable to respond Blood Pressure 168/119 Blood Pressure Location Right Arm Source Automatic Cuff Position Supine Pulse Rate 136 Respiratory Rate 16 Effort Mechanically Ventilated Pulse Oximetry 95 Oxygen Delivery Ventilator Document 01/22/17 20:08 [id number] (Rec: 01/22/17 21:05 [id number]) ED Vital Signs Pain Reported Unable to assess due to patient unable to respond Blood Pressure 107/60 Blood Pressure Location Right Arm Source Automatic Cuff Position Supine Pulse Rate 142 Respiratory Rate 16 Effort Mechanically Ventilated Pulse Oximetry 95 Oxygen Delivery Ventilator Document 01/22/17 20:10 [id number] (Rec: 01/22/17 21:06 [id number]) ED Vital Signs Pain Reported Unable to assess due to patient unable to respond Blood Pressure 115/80 Blood Pressure Location Right Arm Source Automatic Cuff Position Supine Pulse Rate 136 Respiratory Rate 14 Effort Mechanically Ventilated Pulse Oximetry 94 Oxygen Delivery Ventilator Document 01/22/17 20:23 [id number] (Rec: 01/22/17 21:07 [id number]) ED Vital Signs Pain Reported Unable to assess due to patient unable to respond Blood Pressure 101/86 Blood Pressure Location Right Arm Source Automatic Cuff Position Supine Pulse Rate 134 Document 01/22/17 20:31 [id number] (Rec: 01/22/17 21:08 [id number]) ED Vital Signs Pain Reported No Pain Reported Blood Pressure 86/47 Blood Pressure Location Right Arm Source Automatic Cuff Position Supine Document 01/22/17 20:40 [id number] (Rec: 01/22/17 21:08 [id number]) ED Vital Signs Pain Reported Unable to assess due to patient unable to respond Blood Pressure 82/61 Blood Pressure Location Right Arm Source Automatic Cuff Position Supine Pulse Rate 119 Document 01/22/17 20:44 [id number] (Rec: 01/22/17 20:46 [id number]) ED Vital Signs Pain Reported Unable to assess due to patient unable to respond Blood Pressure 97/60 Blood Pressure Location Right Arm Source Automatic Cuff Position Supine Pulse Rate 115 Respiratory Rate 16 Effort Mechanically Ventilated Pulse Oximetry 94 Oxygen Delivery Ventilator Document 01/22/17 21:05 [id number] (Rec: 01/22/17 21:10 [id number]) ED Vital Signs Pain Reported Unable to assess due to patient unable to respond Blood Pressure 137/75 Blood Pressure Location Right Arm Source Automatic Cuff Position Supine Pulse Rate 119 Respiratory Rate 14 Effort Mechanically Ventilated Pulse Oximetry 97 Oxygen Delivery Ventilator Discharge Information ED Provider: Ronald Acuna Status: Admitted Patient Time Seen by Provider: 01/22/17 19:36 Condition: Triaged At: Emergency Discharge Date/Time: Emergency Discharge Disposition: Still a Patient Clinical Impression Acute respiratory failure Acute respiratory failure with hypercapnia HCAP (healthcare-associated pneumonia) Pleural effusion, bilateral Emergency Discharge Comment: Admit Intervention Last Done ED Shortness of Breath Assessment 01/22/17 19:33 Query Result Sepsis Infection Criteria Present suspected infection Sepsis SIRS Criteria RR > 20 rpm HR > 90 bpm Sepsis Organ Dysfunction Criteria change mental status Present acute respiratory failure Sepsis Screen Severe Sepsis Risk Sepsis Action Taken provider notified Sepsis Name of Provider Notified Ronald Acuna Shortness Of Breath Symptoms/Complaint Shortness of Breath Shortness Of Breath Onset this morning Shortness Of Breath Duration Constant Shortness Of Breath Context Unknown Shortness Of Breath Known History COPD Shortness Of Breath Improves With Nothing Shortness Of Breath Worsens With Nothing Shortness Of Breath Associated Symptoms Wheezing Shortness Of Breath Treatments Prior to Oxygen Arrival Bronchodilator Respiratory Depth Shallow Respiratory Effort Labored Short of Breath Abdominal Breathing Tripoding Respiratory Pattern Tachypnea Anterior & Posterior Bilateral Throughout -Breath Sounds Diminished Expiratory Wheezing Level Of Consciousness Lethargic Disoriented Patient Behavior Passive Ability to Follow Directions Poor/Unable Impaired Cognition Yes Skin Temperature Cool Skin Moisture Dry Capillary Refill > 3 Seconds ED Discharge Assessment Inpatient Discharge Date/Time: Inpatient Discharge Disposition: Inpatient Discharge Comment: Instructions: Stand-Alone Forms: Prescriptions: Visit Report - Forms: - Referrals: Radiology Results Chest X-Ray 01/22/17 19:36 IMPRESSION: 1. Endotracheal tube present with tip projecting 4 cm from the zayda. 2. Small bilateral pleural effusions. D/ / Max Roberts MD / Max Roberts MD Interpreting Provider: Max Roberts MD My signature below is to certify that this patient is under my care and that I, or the Resident Physician (Dr. Carlos Eduardo Christianson) working with me, has had a face-to -face encounter with this patient. I examined this patient and my medical decision-making was reviewed with the Resident Physician, Dr. Carlos Eduardo Christianson. I agree with the documented findings, disposition and treatment plan as described except to the extent set forth below.
--- NOTE | 2017-01-22 21:45 | Internal Med History&Physical ---
<Carlos Eduardo Christianson - Last Filed: 01/23/17 04:31> Date of Encounter: 01/23/17 Time of Encounter: 21:10 Assessment and Plan (1) Acute on chronic respiratory failure with hypoxia and hypercapnia Current visit: Yes Status: Acute Patient suffering from respiratory distress and found to have respiratory failure with hypercapnia and hypoxia at presentation. Hypoxia was not resolving with use of CPAP, and patient's increased work of breathing and led patient to elect intubation. Current respiratory failure likely due to pneumonia (given history, will treat broadly) and acute exacerbation of COPD. Patient intubated and sedated on Versed and fentanyl Continue albuterol as well as DuoNeb breathing treatment Methylprednisolone 4 mg every 6 hours Levaquin, vancomycin, and Zosyn Patient was placed in ICU for mechanical ventilation and closer monitoring We will continue telemetry and continuous pulse oximetry We will obtain sputum cultures, blood cultures, lactic acid, Legionella and strep urinary antigens Initial urine antigen were positive for strep pneumo, will de-escalate antibiotics per primary team (2) Acute chronic obstructive pulmonary disease with respiratory failure Current visit: Yes Status: Acute Patient has history of significant COPD, previously hospitalized and intubated with discharged on 11/22/16. We will treat current respiratory ailment is acute exacerbation of COPD requiring intubation. Plan as above (3) Sepsis Current visit: Yes Status: Acute Patient's sepsis due to respiratory infection. Plan as above Qualifiers: Sepsis type: sepsis due to unspecified organism Qualified Code(s): A41.9 - Sepsis, unspecified organism (4) Pneumonia Current visit: No Status: Acute Patient significant respiratory distress likely due to lower respiratory tract infection. Given patient's history of severe respiratory elements as well as COPD. We will treat patient pneumonia with broad-spectrum empiric antibiotics and de-escalate as appropriate. Plan as above Qualifiers: Pneumonia type: due to unspecified organism Laterality: right Lung location: lower lobe of lung Qualified Code(s): J18.1 - Lobar pneumonia, unspecified organism (5) Hypophosphatemia Current visit: Yes Status: Acute Patient hypophosphatemia likely secondary to decreased by mouth intake and poor nutrition. Patient reportedly alcoholic home. Serum phosphorus 0.8. Patient giving potassium repletion with sodium phosphate as well as placed on electrolyte protocol. Phosphorus repletion underway with sodium phosphorus) electrolytes protocol We will obtain urine phosphorus and urine creatinine to further evaluate for potential urinary losses (6) CHF (congestive heart failure) Current visit: Yes Status: Acute Patient has reported history of CHF, last echo identified was in 2011 that showed an EF of 50-55% with normal diastolic function Qualifiers: Congestive heart failure type: unspecified congestive heart failure type Congestive heart failure chronicity: unspecified congestive heart failure chronicity Qualified Code(s): I50.9 - Heart failure, unspecified (7) Hepatitis C Current visit: Yes Status: Chronic Qualifiers: Viral hepatitis chronicity: unspecified Hepatic coma status: without hepatic coma Qualified Code(s): B19.20 - Unspecified viral hepatitis C without hepatic coma (8) GERD (gastroesophageal reflux disease) Current visit: No Status: Chronic Patient will be continued on pantoprazole 40 mg IV daily Qualifiers: Esophagitis presence: esophagitis presence not specified Qualified Code(s) : K21.9 - Gastro-esophageal reflux disease without esophagitis (9) DVT prophylaxis Current visit: No Status: Acute 30 mg of enoxaparin SQ daily (10) Hypomagnesemia Current visit: Yes Status: Acute Patient had low serum magnesium at 1.2. Repleted with one-time dose of magnesium and then placed selectively protocol. Given 2 g IV magnesium Patient placed on electronic protocol (11) ETOH abuse Current visit: Yes Status: Acute Patient has reported history of alcohol abuse. Placed on CIWA protocol when awake Sedation change from propofol to resend fentanyl nor to cheaper sedation given chronic EtOH use (12) Superficial burn Current visit: Yes Status: Acute Internal Medicine - H&P: HPI Chief complaint: Shortness of breath Admitted From: Home Plans for Post Hospital Care: Home History of present illness: Mr. Guardado is a 71 year old male with prior medical history significant for COPD , CAD, CHF, hepatitis C, and hyperlipidemia presents to the hospital today after several hours of shortness of breath. When seen, patient is intubated and sedated with no family present so patient history obtained through chart review. Patient had been having shortness of breath for most a day, but acutely worsened one hour before presentation. Patient's son had called EMS and after arrival seen from patient. Respiratory distress. After being given a breathing treatment and continuing to show oxygen saturation in low 80s while on CPAP, patient elected for intubation. ABG showed pH 7.34 with PCO2 of 111, bicarbonate 1 evaluated on catheter is 45. Likely, patient hypercapnia is chronic because he has a relatively normal pH with elevated PCO2 and bicarbonate. He had recently been admitted to [place], and discharged on 11/22/16, has been treated at that time for very similar complaint. At that time he had acute respiratory failure with hypercapnia, pneumonia, acute exacerbations being, and encephalopathy. He had undergone intubation and had been in the ICU for once a week. Past Med Surg Social Fam HX - Past Medical History Medical history: COPD, coronary artery disease, GERD, hepatitis, hyperlipidemia Psychiatric history: anxiety - Past Surgical History Surgical History: angioplasty/stent - Social History Smoking Status: Current some day smoker Smokeless Tobacco Status: No Alcohol use: occasionally, recent Drug use: none Internal Medicine - H&P: Meds Albuterol Sulfate [Albuterol Inhaler] 2 puff IH Q6HR PRN 11/10/16 [History] Allopurinol [Zyloprim] 100 mg PO DAILY 11/10/16 [History] Atorvastatin Calcium [Lipitor] 40 mg PO HS 11/10/16 [History] Docusate Sodium [Dok] 100 mg PO BID PRN 11/10/16 [History] Furosemide [Lasix] 40 mg PO DAILY 11/10/16 [History] Guaifenesin [Mucus Relief] 400 mg PO BID PRN 11/10/16 [History] Ipratropium/Albuterol Neb [Duoneb] 3 ml IH Q6HR PRN 11/10/16 [History] Isosorbide MONOnitrate (24 HR) [Imdur] 30 mg PO DAILY 11/10/16 [History] LORazepam [Ativan] 0.5 mg PO BID 11/10/16 [History] Melatonin 3 mg PO HS 11/10/16 [History] Methocarbamol [Robaxin-750] 750 mg PO QID PRN 11/10/16 [History] Naproxen [Naprosyn] 500 mg PO BID PRN 11/10/16 [History] Omeprazole [PriLOSEC] 20 mg PO DAILY 11/10/16 [History] Polyvinyl Alcohol [Artificial Tears] 1 drop BOTH EYES QID 11/10/16 [History] Ranitidine HCl [Acid Car Hopper] 150 mg PO BID 11/10/16 [History] Triamcinolone Acet 0.1% CRM [Kenalog] 1 appl TP TID 11/10/16 [History] Acetaminophen [Tylenol] 1,000 mg PO BID PRN 01/22/17 [History] Multivitamin [Multi-Day Vitamins] 1 each PO DAILY 01/22/17 [History] Olodaterol HCl [Striverdi Respimat] 2 puff IH DAILY 01/22/17 [History] Silver Sulfadiazine Cream [Silvadene] 1 appl TP DAILY 01/22/17 [History] Simethicone [Gas-X] 80 mg PO TID PRN 01/22/17 [History] Theophylline Anhydrous [Jose-24] 300 mg PO BID 01/22/17 [History] Allergies acetaminophen [From Vicodin] Allergy (Verified 11/10/16 06:00) See Comments Unknown Allergy hydrocodone [From Vicodin] Allergy (Verified 11/10/16 06:00) See Comments Unknown Allergy moxifloxacin Allergy (Verified 11/10/16 06:00) See Comments Unknown Allergy ROS unobtainable: due to endotracheal tube, due to mental status - Constitutional Vitals: Temp Pulse Resp BP Pulse Ox 97.6 F 119 12 137/75 97 01/22/17 19:33 01/22/17 21:05 01/22/17 21:05 01/22/17 21:05 01/22/17 21:05 Exam: General: Intubated and sedated Head: Normocephalic, atraumatic Eye: Conjunctiva pink, sclera anicteric, PERRL Neck: Supple, trachea midline Respiratory: No accessory muscle usage, decreased air movement diffusely, diffuse wheezes present Cardiovascular: Tachycardia, no murmurs/rubs/gallops/clicks appreciated GI/abdominal: Nondistended, nontender, soft, normal bowel sounds, no peritoneal signs Extremities: Noncyanotic, no pedal edema appreciated, warm, lower extremity pulses palpable and symmetrical Skin: Dry, intact, normal color Internal Med - H&P Results - Labs CBC & Chem 7: 01/23/17 04:00 01/23/17 00:30 <Saad Gordon - Last Filed: 01/23/17 04:56> Date of Encounter: 01/22/17 Assessment and Plan (1) Acute on chronic respiratory failure with hypoxia and hypercapnia Current visit: Yes Status: Acute (2) Toxic metabolic encephalopathy Current visit: Yes Status: Acute (3) Delirium due to conditions classified elsewhere Current visit: Yes Status: Acute (4) CO2 narcosis Current visit: Yes Status: Acute (5) Acute chronic obstructive pulmonary disease with respiratory failure Current visit: Yes Status: Acute (6) Hypophosphatemia Current visit: Yes Status: Acute (7) SIRS due to infectious process with acute organ dysfunction Current visit: Yes Status: Acute (8) Chronic alcoholism Current visit: Yes Status: Chronic (9) Hyperammonemia Current visit: Yes Status: Acute (10) Metabolic alkalosis with respiratory acidosis Current visit: Yes Status: Acute (11) Hepatitis C Current visit: Yes Status: Chronic Qualifiers: Viral hepatitis chronicity: unspecified Hepatic coma status: without hepatic coma Qualified Code(s): B19.20 - Unspecified viral hepatitis C without hepatic coma (12) Sepsis Current visit: Yes Status: Acute Qualifiers: Sepsis type: sepsis due to unspecified organism Qualified Code(s): A41.9 - Sepsis, unspecified organism (13) Protein-calorie malnutrition Current visit: Yes Status: Chronic (14) Tobacco abuse disorder Current visit: Yes Status: Chronic Internal Medicine - H&P: HPI History of present illness: Mr. Guardado is a 71 year old male was visited and examined. I examined this patient and my medical decision-making was reviewed with the Resident Physician, Dr. Carlos Eduardo Christianson. For this encounter, I have reviewed the documentation, treatment plan, and medical decision making. I agree with the documented findings, disposition and treatment plan as described except to the extent set forth below. Cumulative laboratory and radiographic database was reviewed, considered and discussed. My signature below is to certify that this patient is under my care and that I, or the Resident Physician working with me, has had a [id number] encounter with this patient. Orders written. All Systems PM: A 10-system review of systems was performed and is negative for pertinent findings except as documented above in the HPI. - Constitutional Vitals: Temp Pulse Resp BP Pulse Ox 99.3 F 106 12 90/61 100 01/23/17 04:43 01/23/17 04:00 01/23/17 04:00 01/23/17 04:00 01/23/17 04:00 Internal Med - H&P Results - Labs CBC & Chem 7: 01/23/17 04:00 01/23/17 04:00 Labs: Short CBC 01/23/17 Range/Units 04:00 WBC 7.6 (4.3-11.1) K/mcL Hgb 10.8 L D (12.9-16.9) g/dL Hct 36.4 L (37.5-50.1) % Plt Count 197 (140-400) K/mcL Neutrophils # 6.8 (1.6-8.9) K/mcL BMP 01/23/17 01/23/17 00:30 04:00 Sodium 138 138 Potassium 4.1 4.1 Chloride 93 L 93 L Carbon Dioxide 38 H 37 H BUN 9 9 Creatinine 0.72 0.72 Glucose 187 H 130 H Calcium 8.7 D 9.0 Cardiac Enzymes 01/23/17 Range/Units 04:00 Troponin I 0.03 (0-0.03) ng/mL Liver Function 01/23/17 Range/Units 00:30 Total Bilirubin 0.6 (0.2-1.2) mg/dL AST 28 (5-34) Units/L ALT 15 (0-55) Units/L Alkaline Phosphatase 58 (38-126) Units/L Albumin 2.4 L (3.5-5.0) g/dL - Impressions ITS Impressions Chest X-Ray 01/22/17 21:31 IMPRESSION: 1. New right internal jugular center venous catheter tip in the SVC. No pneumothorax. 2. Endotracheal tube terminates 2.7 cm above the stephanie. 3. Stable ill-defined bilateral reticular opacities and partially imaged small right pleural effusion. D/ / Floyd Campbell MD / Floyd Campbell MD Interpreting Provider: Floyd Campbell MD
[2017-01-22] MEDS ORDERED: Vancomycin 1,000 MG in D5% in Water 250 ML IVPB SCH (22:00)
[2017-01-22 22:05] LABS: Bilirubin,Urine Negative (Negative); Blood,Urine Small (Negative); Clarity,Urine Cloudy (Clear); Color,Urine Yellow (Yellow); Glucose,Urine (UA) Normal (Normal); Ketones,Urine Negative (Negative); Leukocyte Esterase,Urine Negative (Negative); Nitrite,Urine Negative (Negative); Protein,Urine 100 mg/dL (Neg-Trace); Specific Gravity,Urine 1.018 (1.010-1.025); Urobilinogen,Urine Normal (Normal)
[2017-01-22] MEDS ORDERED: *HR* Midazolam HCl 5 MG/5 ML VIAL IVP ONE (22:06)
[2017-01-22] MEDS ORDERED: *HR* Midazolam HCl 2 MG/2 ML VIAL ONE (22:06)
[2017-01-22 22:07] LABS: Bacteria,Urine None Seen per hpf (None-Few); Squamous Epithelial Cell,Urine Many per lpf (None-Few)
[2017-01-22 22:24] LABS: Hyaline Casts,Urine Few per lpf (None-Few)
[2017-01-22] MEDS ORDERED: *HR* Midazolam HCl 2 MG/2 ML VIAL IVP ONE (23:25)
[2017-01-22] MEDS ORDERED: *HR* LORazepam 2 MG/ML VIAL IVP PRN (23:29)
[2017-01-22] MEDS ORDERED: *HR* Promethazine 25 MG/ML VIAL IVP PRN (23:29)
[2017-01-22] MEDS: 0.9 % Sodium Chloride 1,000 ML IVC SCH (23:29)
[2017-01-22] MEDS ORDERED: FentaNYL (PF) 1,000 MCG in 0.9 % Sodium Chloride 80 ML IVC SCH (23:30)
[2017-01-23] MEDS ORDERED: Ipratropium/Albuterol Neb 3 ML IH SCH
[2017-01-23] MEDS: FentaNYL (PF) 1,000 MCG in 0.9 % Sodium Chloride 80 ML IVC SCH ×3 (00:13→17:55)
[2017-01-23 01:03] LABS: Amphetamine Screen,Urine Negative ng/mL (Cutoff=1000); Barbiturate Screen,Urine Negative ng/mL (Cutoff=200); Benzodiazepines Screen,Urine Negative ng/mL (Cutoff=200); Cannabinoid Screen,Urine Negative ng/mL (Cutoff = 50); Cocaine Screen,Urine Negative ng/mL (Cutoff= 300); Opiate Screen,Urine Negative ng/mL (Cutoff=300); Phencyclidine Screen,Urine Negative ng/mL (Cutoff=25)
[2017-01-23 01:05] LABS: Alanine Aminotransferase 15 Units/L (0-55); Albumin 2.4 g/dL (3.5-5.0); Albumin/Globulin Ratio 0.7 (1.1-2.2); Alkaline Phosphatase 58 Units/L (38-126); Amylase 211 Units/L (25-125); Aspartate Amino Transferase 28 Units/L (5-34); BUN/Creatinine Ratio 13 (6-26); Bilirubin,Total 0.6 mg/dL (0.2-1.2); Blood Urea Nitrogen 9 mg/dL (8-26); Carbon Dioxide 38 mEq/L (19-29); Chloride 93 mEq/L (98-109); Globulin 3.4 g/dL (2.4-3.5); Glucose 187 mg/dL (70-99); Lipase 6 Units/L (8-78); Magnesium 1.2 mg/dL (1.6-2.6); Osmolality,Calculated 290 (280-300); Potassium 4.1 mEq/L (3.5-4.5); Sodium 138 mEq/L (136-145); Total Protein 5.8 g/dL (6.0-8.3); eGFR For African Americans > 60 (> 60); eGFR For Non-African Americans > 60 (> 60)
[2017-01-23] MEDS: methylPREDNISolone 125 MG/2 ML VIAL IVP SCH ×5 (01:05→23:58)
[2017-01-23] MEDS: Lacri-Lube 3.5 GM TUBE BOTH EYES SCH ×7 (01:05→23:58)
[2017-01-23 01:06] LABS: Calcium 8.7 mg/dL (8.6-10.8)
[2017-01-23 01:08] LABS: Ethanol < 10 mg/dL (0-10); Phosphorous 0.8 mg/dL (2.3-4.7)
[2017-01-23] MEDS ORDERED: Magnesium Sulfate 2 GM in D5% in Water 100 ML IVPB ONE (01:48)
[2017-01-23] MEDS ORDERED: Sodium Phosphate 30 MMOL in D5% in Water 100 ML IVPB ONE (01:48)
[2017-01-23] MEDS ORDERED: Calcium Gluconate 1,000 MG in D5% in Water 100 ML IVPB PRN (02:40)
[2017-01-23] MEDS ORDERED: Sodium Phosphate 30 MMOL in D5% in Water 100 ML IVPB PRN (02:40)
[2017-01-23] MEDS ORDERED: Potassium Phosphate 44 MEQ in 0.9 % Sodium Chloride 250 ML IVPB PRN (02:40)
[2017-01-23] MEDS ORDERED: Magnesium Sulfate 2 GM in D5% in Water 100 ML IVPB PRN (02:40)
[2017-01-23] MEDS: Levalbuterol Neb 1.25 MG/3 ML IH SCH ×7 (03:57→23:55)
[2017-01-23] MEDS: Ipratropium Neb 0.5 MG NEBULIZER IH SCH ×7 (03:57→23:55)
[2017-01-23 04:10] LABS: Hematocrit 36.4 % (37.5-50.1); Immature Granulocytes % 0.4 % (0-4); Lymphocytes # 0.6 K/mcL (0.6-4.6); Lymphocytes % 7.3 %; Mean Corpuscular HGB Conc 29.7 g/dL (31.6-35.5); Mean Corpuscular Hemoglobin 27.6 pg (28.0-33.3); Mean Corpuscular Volume 92.9 fL (83.0-100.0); Mean Platelet Volume 9.7 fL (9.4-12.4); Monocytes # 0.2 K/mcL (0.0-1.3); Monocytes % 2.6 %; Neutrophils # 6.8 K/mcL (1.6-8.9); Platelet Count 197 K/mcL (140-400); Red Blood Count 3.92 M/mcL (4.19-5.50); Red Cell Distribution Width 15.2 % (11.5-14.5); Segmented Neutrophils % 89.7 %
[2017-01-23 04:11] LABS: Hemoglobin 10.8 g/dL (12.9-16.9)
[2017-01-23 04:25] LABS: Ionized Calcium 1.07 mmol/L (1.15-1.35)
[2017-01-23 04:32] LABS: BUN/Creatinine Ratio 13 (6-26); Blood Urea Nitrogen 9 mg/dL (8-26); Carbon Dioxide 37 mEq/L (19-29); Chloride 93 mEq/L (98-109); Cholesterol 122 mg/dL (< 200); Glucose 130 mg/dL (70-99); HDL Cholesterol 60 mg/dL (40-59); LDL Cholesterol,Calculated 49 mg/dL (0-99); Osmolality,Calculated 286 (280-300); Potassium 4.1 mEq/L (3.5-4.5); Sodium 138 mEq/L (136-145); Triglycerides 63 mg/dL (< 150); eGFR For African Americans > 60 (> 60); eGFR For Non-African Americans > 60 (> 60)
[2017-01-23 05:34] LABS: ABG Base Excess 19.3 mEq/L (-2.0 to 3.0); ABG HCO3 47.5 mEQ/L (21-27); ABG Oxygen Saturation 99 % (95-98); ABG PH 7.41 pH Units (7.32-7.45); ABG PO2 132 mmHg (85-104); ABG TCO2 49.8 mEq/L (20-26)
[2017-01-23 05:38] LABS: Blood Gas FiO2 50 %
[2017-01-23 05:39] LABS: ABG PCO2 75 mmHg (35-45)
[2017-01-23] MEDS: *HR* Enoxaparin 30 MG/0.3 ML SYRINGE SQ SCH (05:43)
--- NOTE | 2017-01-23 06:47 | Pulmonology Consult Note ---
<Gamaliel Lopez - Last Filed: 01/23/17 15:22> Date of Encounter: 01/23/17 Time of Encounter: 06:47 Assessment and Plan (1) Acute on chronic respiratory failure with hypoxia and hypercapnia Current Visit: Yes Status: Acute Patient was recently discharged from this hospital on 11/21/2016 for acute on chronic respiratory failure from COPD exacerbation and community acquired pneumonia, he was also intubated in ICU back then. Initial ABG this time showed pH of 7.34, PCO2 of 111 and bicarbonate of 59.9, this improved to pH of 7.41, PCO2 of 75 and bicarbonate of 47.5 after he was intubated on mechanical ventilation, by looking at his previous ABG patient is a chronic CO2 retainer with elevated bicarb compensation, this time is also likely secondary to acute exacerbation of COPD, chest x-ray showed blunting of bilateral costophrenic angle compatible with small bilateral pleural effusions and previously described consolidation in the right lower lobe resolved, this morning while he was on CPAP trial patient became agitated with shivering and autonomic instability, he was put back on sedation. We will continue to treat his underlying COPD exacerbation with Symbicort, DuoNeb, IV steroid, antibiotic, and oxygen support through mechanical ventilation. (2) Acute exacerbation of chronic obstructive pulmonary disease Current Visit: Yes Status: Acute Repeated ABG this morning showed improvement after he was intubated on mechanical ventilation, will continue current COPD regimen of Symbicort, DuoNeb , IV steroid, and antibiotic. (3) Alcohol abuse Current Visit: Yes Status: Acute Hx of alcohol abuse, when we tried cpap trial, he was having tremor and autonomic instability with tachycardia, therefore he was put back on sedation, will con't CIWA protocol, ativan prn and daily rally pack. (4) Leukocytosis Current Visit: Yes Status: Acute Chest x-ray showed resolved previously shown right lower lobe consolidation, when he was admitted he was started on broad-spectrum antibiotics with vancomycin, Zosyn and Levaquin for possible underlying questionable hospital- acquired pneumonia, strep pneumo urinary antigen was positive but this was positive two months ago, this time chest x-ray does not suggest pneumonia, clinically does not look infected, sputum/blood cultures are pending at this time, leukocytosis resolved, will stop vanco/zosyn, con't levaquin as COPD regimen. Qualifiers: Qualified Code(s): D72.829 - Elevated white blood cell count, unspecified (5) Electrolyte abnormality Current Visit: Yes Status: Acute Lab showed low ionized calcium, magnesium, albumin and phosphorus levels, he is on electrolyte protocol currently, will replace them, recheck levels in AM, likely 2/2 malnutrition from chronic alcohol use. 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 (7) DVT prophylaxis Current Visit: Yes Status: Acute Lovenox sq daily. History of Present Illness Consult date: 01/23/17 Requesting physician: Carlos Eduardo Christianson Reason for consult: dyspnea, COPD Chief complaint: Acute on chronic respiratory failure History of present illness: This is a 71 year old male with a history of COPD, coronary artery disease, GERD , and hyperlipidemia who was recently discharged from this hospital on 2016 for acute on chronic respiratory failure and acute encephalopathy from COPD exacerbation and community acquired pneumonia, he was intubated in ICU and soon after he was extubated but he left against medical advice from stepdown unit. This time he was brought to the ER by EMS with chief complaint of progressive worsening of shortness of breath which started this morning and progressively got worse over the several hours therefore patient's son called EMS. After patient received a breathing treatment in the ER his oxygen saturation dropped to low 80s while on CPAP and subsequently patient was intubated. He is a current smoker and use home oxygen during the day. Initial ABG showed pH of 7.34, PCO2 of 111 and bicarbonate of 59.9, chest x-ray showed blunting of bilateral costophrenic angle compatible with bilateral pleural effusions and previously described consolidation in the right lower lobe was resolved. Patient was subsequently transferred to ICU for further management and close monitoring. Past Med Surg Social Fam HX - Past Medical History Medical history: arthritis (History of gout.), cirrhosis, COPD (Chronic medical pulmonary disease with hypoxia and hypercapnia. Dependent on supplemental oxygen. Cachexia associated with chronic pulmonary disease.), coronary artery disease, GERD, hepatitis (History of hepatitis C.), hyperlipidemia, hypertension , liver disease, myocardial infarction, peripheral artery disease, renal disease , other (Hyperuricemia. Alcoholism. Chronic pain syndrome. Atopic dermatitis. Erectile dysfunction.) Psychiatric history: anxiety, other - Past Surgical History Surgical History: angioplasty/stent, other - Social History Smoking Status: Current some day smoker Smokeless Tobacco Status: No Alcohol use: occasionally, recent Drug use: none - Family History Mother History Unknown: Yes Father History Unknown: Yes Medications and Allergies Albuterol Sulfate [Albuterol Inhaler] 2 puff IH Q6HR PRN 11/10/16 [History] Allopurinol [Zyloprim] 100 mg PO DAILY 11/10/16 [History] Atorvastatin Calcium [Lipitor] 40 mg PO HS 11/10/16 [History] Docusate Sodium [Dok] 100 mg PO BID PRN 11/10/16 [History] Furosemide [Lasix] 40 mg PO DAILY 11/10/16 [History] Guaifenesin [Mucus Relief] 400 mg PO BID PRN 11/10/16 [History] Ipratropium/Albuterol Neb [Duoneb] 3 ml IH Q6HR PRN 11/10/16 [History] Isosorbide MONOnitrate (24 HR) [Imdur] 30 mg PO DAILY 11/10/16 [History] LORazepam [Ativan] 0.5 mg PO BID 11/10/16 [History] Melatonin 3 mg PO HS 11/10/16 [History] Methocarbamol [Robaxin-750] 750 mg PO QID PRN 11/10/16 [History] Naproxen [Naprosyn] 500 mg PO BID PRN 11/10/16 [History] Omeprazole [PriLOSEC] 20 mg PO DAILY 11/10/16 [History] Polyvinyl Alcohol [Artificial Tears] 1 drop BOTH EYES QID 11/10/16 [History] Ranitidine HCl [Acid Regulatory Affairs Portfolio Leader] 150 mg PO BID 11/10/16 [History] Triamcinolone Acet 0.1% CRM [Kenalog] 1 appl TP TID 11/10/16 [History] Acetaminophen [Tylenol] 1,000 mg PO BID PRN 01/22/17 [History] Multivitamin [Multi-Day Vitamins] 1 each PO DAILY 01/22/17 [History] Olodaterol HCl [Striverdi Respimat] 2 puff IH DAILY 01/22/17 [History] Silver Sulfadiazine Cream [Silvadene] 1 appl TP DAILY 01/22/17 [History] Simethicone [Gas-X] 80 mg PO TID PRN 01/22/17 [History] Theophylline Anhydrous [Jose-24] 300 mg PO BID 01/22/17 [History] Allergies acetaminophen [From Vicodin] Allergy (Verified 11/10/16 06:00) See Comments Unknown Allergy hydrocodone [From Vicodin] Allergy (Verified 11/10/16 06:00) See Comments Unknown Allergy moxifloxacin Allergy (Verified 11/10/16 06:00) See Comments Unknown Allergy ROS unobtainable: due to endotracheal tube All Systems: A 10-system review of systems was performed and is negative for pertinent findings except as documented above in the HPI. Physical Examination Vital Signs: Vital Signs, Last 4 Hours Temp Pulse Resp BP Pulse Ox 01/23/17 05:57 106 12 99/62 100 01/23/17 05:31 12 100 01/23/17 05:00 107 12 105/69 100 01/23/17 04:43 99.3 F 01/23/17 04:00 106 12 90/61 99 01/23/17 03:00 110 12 104/63 99 General appearance: no acute distress, other (On IV sedation) Eyes: nonicteric ENT: oropharynx moist Neck: supple Effort: normal Auscultation: bilateral: diminished breath sounds (Diffusely), wheezes ( Slightly at base) Cardiovascular: other (Regular rhythm but tachycardic) Gastrointestinal: normoactive bowel sounds, soft, non-distended Integumentary: other (Healing second-degree luque on the right hand fingers, dressing is on) Extremities: no cyanosis, no edema Musculoskeletal: no deformities pupils equal and round, other (On IV sedation) Ventilator Settings Ventilator Settings: Ventilator Settings, Last 8 Hours Ventilator Mode VC+ Ventilator Mode VC+ Ventilator Mode VC+ Ventilator Mode VC+ Ventilator Mode VC+ Ventilator Mode VC+ Ventilator Mode VC+ Ventilator Mode VC+ Ventilator Mode VC+ Ventilator Mode VC+ Ventilator Mode VC+ Ventilator Mode VC+ Ventilator Mode VC+ Ventilator Tidal Volume 500 Setting Ventilator Tidal Volume 500 Setting Ventilator Tidal Volume 500 Setting Ventilator Tidal Volume 500 Setting Ventilator Tidal Volume 500 Setting Ventilator Tidal Volume 500 Setting Ventilator Tidal Volume 500 Setting Ventilator Tidal Volume 500 Setting Ventilator Tidal Volume 500 Setting Ventilator Tidal Volume 500 Setting Ventilator Tidal Volume 500 Setting Ventilator Tidal Volume 500 Setting Ventilator Tidal Volume 500 Setting Ventilator Respiratory Rate 12 Setting Ventilator Respiratory Rate 12 Setting Ventilator Respiratory Rate 12 Setting Ventilator Respiratory Rate 12 Setting Ventilator Respiratory Rate 12 Setting Ventilator Respiratory Rate 12 Setting Ventilator Respiratory Rate 12 Setting Ventilator Respiratory Rate 12 Setting Ventilator Respiratory Rate 12 Setting Ventilator Respiratory Rate 12 Setting Ventilator Respiratory Rate 12 Setting Ventilator Respiratory Rate 12 Setting Ventilator Respiratory Rate 12 Setting Actual Respiratory Rate 12 Actual Respiratory Rate 12 Actual Respiratory Rate 12 Actual Respiratory Rate 12 Actual Respiratory Rate 12 Actual Respiratory Rate 12 Actual Respiratory Rate 12 Actual Respiratory Rate 12 Actual Respiratory Rate 12 Actual Respiratory Rate 12 Actual Respiratory Rate 12 Actual Respiratory Rate 12 Positive End Expiratory 5 Pressure Positive End Expiratory 5 Pressure Positive End Expiratory 5 Pressure Positive End Expiratory 5 Pressure Positive End Expiratory 5 Pressure Positive End Expiratory 5 Pressure Positive End Expiratory 5 Pressure Positive End Expiratory 5 Pressure Positive End Expiratory 5 Pressure Positive End Expiratory 5 Pressure Positive End Expiratory 5 Pressure Positive End Expiratory 5 Pressure Positive End Expiratory 5 Pressure Peak Inspiratory Airway 30 Pressure Peak Inspiratory Airway 30 Pressure Peak Inspiratory Airway 30 Pressure Peak Inspiratory Airway 30 Pressure Peak Inspiratory Airway 30 Pressure Peak Inspiratory Airway 29 Pressure Peak Inspiratory Airway 29 Pressure Peak Inspiratory Airway 28 Pressure Peak Inspiratory Airway 28 Pressure Peak Inspiratory Airway 28 Pressure Peak Inspiratory Airway 29 Pressure Peak Inspiratory Airway 28 Pressure Results - Laboratory Findings CBC and BMP: 01/23/17 04:00 01/23/17 04:00 ABG ABG pH 7.41 pH Units (7.32-7.45) 01/23/17 05:25 ABG pCO2 75 mmHg (35-45) H* 01/23/17 05:25 ABG pO2 132 mmHg (85-104) H 01/23/17 05:25 ABG O2 Saturation 99 % (95-98) H 01/23/17 05:25 PT/INR, D-dimer PT 10.6 Seconds (9.4-12.1) 01/22/17 19:49 Abnormal lab findings: Abnormal lab results RBC 3.92 M/mcL (4.19-5.50) L 01/23/17 04:00 Hgb 10.8 g/dL (12.9-16.9) L D 01/23/17 04:00 Hct 36.4 % (37.5-50.1) L 01/23/17 04:00 MCH 27.6 pg (28.0-33.3) L 01/23/17 04:00 MCHC 29.7 g/dL (31.6-35.5) L 01/23/17 04:00 RDW 15.2 % (11.5-14.5) H 01/23/17 04:00 ABG pCO2 75 mmHg (35-45) H* 01/23/17 05:25 ABG pO2 132 mmHg (85-104) H 01/23/17 05:25 ABG HCO3 47.5 mEQ/L (21-27) H 01/23/17 05:25 ABG Total CO2 49.8 mEq/L (20-26) H 01/23/17 05:25 ABG O2 Saturation 99 % (95-98) H 01/23/17 05:25 ABG Base Excess 19.3 mEq/L (-2.0 to 3.0) H 01/23/17 05:25 Chloride 93 mEq/L (98-109) L 01/23/17 04:00 Carbon Dioxide 37 mEq/L (19-29) H 01/23/17 04:00 Glucose 130 mg/dL (70-99) H 01/23/17 04:00 POC Glucose 130 (58-89) H 01/22/17 23:29 Ionized Calcium 1.07 mmol/L (1.15-1.35) L 01/23/17 04:00 Phosphorus 0.8 mg/dL (2.3-4.7) L* 01/23/17 00:30 Magnesium 1.2 mg/dL (1.6-2.6) L 01/23/17 00:30 Ammonia 75 mcmol/L (18-72) H 01/22/17 20:33 Serum Total Protein 5.8 g/dL (6.0-8.3) L 01/23/17 00:30 Albumin 2.4 g/dL (3.5-5.0) L 01/23/17 00:30 Albumin/Globulin Ratio 0.7 (1.1-2.2) L 01/23/17 00:30 HDL Cholesterol 60 mg/dL (40-59) H 01/23/17 04:00 Amylase 211 Units/L (25-125) H 01/23/17 00:30 Lipase 6 Units/L (8-78) L 01/23/17 00:30 Urine Clarity Cloudy (Clear) A 01/22/17 20:00 Urine Protein 100 mg/dL (Neg-Trace) H 01/22/17 20:00 Urine Blood Small (Negative) H 01/22/17 20:00 Urine Microscopic RBC 3-5 per hpf (0-3) H 01/22/17 20:00 Urine Microscopic WBC 3-5 per hpf (0-3) H 01/22/17 20:00 Ur Squamous Epith Cells Many per lpf (None-Few) H 01/22/17 20:00 - Clinical Findings Intake & Output: Intake & Output 01/22/17 01/22/17 01/23/17 15:59 23:59 07:59 Intake Total 22 / 550.0 604 / 604 Output Total 500 / 500 650 / 650 Balance -478 / 50.0 -46 / -46 Weight 68.9 kg Consult Discharge Plan - Plan Referrals: NO,PCP [Primary Care Provider] - <Tevin Burns - Last Filed: 01/23/17 18:07> Date of Encounter: 01/23/17 All Systems: A 10-system review of systems was performed and is negative for pertinent findings except as documented above in the HPI. Physical Examination Vital Signs: Vital Signs, Last 4 Hours Temp Pulse Resp BP Pulse Ox 01/23/17 17:00 69 12 125/74 96 01/23/17 16:00 70 12 140/80 100 01/23/17 15:06 12 119/69 99 01/23/17 15:00 98.0 F 62 12 119/69 100 01/23/17 14:00 67 12 121/69 100 Ventilator Settings Ventilator Settings: Ventilator Settings, Last 8 Hours Ventilator Mode VC+ Ventilator Mode VC+ Ventilator Mode VC+ Ventilator Mode VC+ Ventilator Mode VC+ Ventilator Mode VC+ Ventilator Mode VC+ Ventilator Mode VC+ Ventilator Mode VC+ Ventilator Mode VC+ Ventilator Mode VC+ Ventilator Mode VC+ Ventilator Tidal Volume 500 Setting Ventilator Tidal Volume 500 Setting Ventilator Tidal Volume 500 Setting Ventilator Tidal Volume 500 Setting Ventilator Tidal Volume 500 Setting Ventilator Tidal Volume 500 Setting Ventilator Tidal Volume 500 Setting Ventilator Tidal Volume 500 Setting Ventilator Tidal Volume 500 Setting Ventilator Tidal Volume 500 Setting Ventilator Tidal Volume 500 Setting Ventilator Tidal Volume 500 Setting Ventilator Respiratory Rate 12 Setting Ventilator Respiratory Rate 12 Setting Ventilator Respiratory Rate 12 Setting Ventilator Respiratory Rate 12 Setting Ventilator Respiratory Rate 12 Setting Ventilator Respiratory Rate 12 Setting Ventilator Respiratory Rate 12 Setting Ventilator Respiratory Rate 12 Setting Ventilator Respiratory Rate 12 Setting Ventilator Respiratory Rate 12 Setting Ventilator Respiratory Rate 12 Setting Ventilator Respiratory Rate 12 Setting Actual Respiratory Rate 12 Actual Respiratory Rate 12 Actual Respiratory Rate 12 Actual Respiratory Rate 12 Actual Respiratory Rate 12 Actual Respiratory Rate 12 Actual Respiratory Rate 12 Actual Respiratory Rate 12 Actual Respiratory Rate 12 Actual Respiratory Rate 12 Actual Respiratory Rate 12 Actual Respiratory Rate 12 Positive End Expiratory 5 Pressure Positive End Expiratory 5 Pressure Positive End Expiratory 5 Pressure Positive End Expiratory 5 Pressure Positive End Expiratory 5 Pressure Positive End Expiratory 5 Pressure Positive End Expiratory 5 Pressure Positive End Expiratory 5 Pressure Positive End Expiratory 5 Pressure Positive End Expiratory 5 Pressure Positive End Expiratory 5 Pressure Positive End Expiratory 5 Pressure Peak Inspiratory Airway 28 Pressure Peak Inspiratory Airway 28 Pressure Peak Inspiratory Airway 26 Pressure Peak Inspiratory Airway 28 Pressure Peak Inspiratory Airway 27 Pressure Peak Inspiratory Airway 28 Pressure Peak Inspiratory Airway 27 Pressure Peak Inspiratory Airway 27 Pressure Peak Inspiratory Airway 27 Pressure Peak Inspiratory Airway 29 Pressure Peak Inspiratory Airway 30 Pressure Peak Inspiratory Airway 28 Pressure Results - Laboratory Findings CBC and BMP: 01/23/17 04:00 01/23/17 04:00 ABG ABG pH 7.41 pH Units (7.32-7.45) 01/23/17 05:25 ABG pCO2 75 mmHg (35-45) H* 01/23/17 05:25 ABG pO2 132 mmHg (85-104) H 01/23/17 05:25 ABG O2 Saturation 99 % (95-98) H 01/23/17 05:25 PT/INR, D-dimer PT 10.6 Seconds (9.4-12.1) 01/22/17 19:49 Abnormal lab findings: Abnormal lab results RBC 3.92 M/mcL (4.19-5.50) L 01/23/17 04:00 Hgb 10.8 g/dL (12.9-16.9) L D 01/23/17 04:00 Hct 36.4 % (37.5-50.1) L 01/23/17 04:00 MCH 27.6 pg (28.0-33.3) L 01/23/17 04:00 MCHC 29.7 g/dL (31.6-35.5) L 01/23/17 04:00 RDW 15.2 % (11.5-14.5) H 01/23/17 04:00 ABG pCO2 75 mmHg (35-45) H* 01/23/17 05:25 ABG pO2 132 mmHg (85-104) H 01/23/17 05:25 ABG HCO3 47.5 mEQ/L (21-27) H 01/23/17 05:25 ABG Total CO2 49.8 mEq/L (20-26) H 01/23/17 05:25 ABG O2 Saturation 99 % (95-98) H 01/23/17 05:25 ABG Base Excess 19.3 mEq/L (-2.0 to 3.0) H 01/23/17 05:25 Chloride 93 mEq/L (98-109) L 01/23/17 04:00 Carbon Dioxide 37 mEq/L (19-29) H 01/23/17 04:00 Glucose 130 mg/dL (70-99) H 01/23/17 04:00 POC Glucose 142 (58-89) H 01/23/17 11:33 Ammonia 75 mcmol/L (18-72) H 01/22/17 20:33 Serum Total Protein 5.8 g/dL (6.0-8.3) L 01/23/17 00:30 Albumin 2.4 g/dL (3.5-5.0) L 01/23/17 00:30 Albumin/Globulin Ratio 0.7 (1.1-2.2) L 01/23/17 00:30 HDL Cholesterol 60 mg/dL (40-59) H 01/23/17 04:00 Amylase 211 Units/L (25-125) H 01/23/17 00:30 Lipase 6 Units/L (8-78) L 01/23/17 00:30 Urine Clarity Cloudy (Clear) A 01/22/17 20:00 Urine Protein 100 mg/dL (Neg-Trace) H 01/22/17 20:00 Urine Blood Small (Negative) H 01/22/17 20:00 Urine Microscopic RBC 3-5 per hpf (0-3) H 01/22/17 20:00 Urine Microscopic WBC 3-5 per hpf (0-3) H 01/22/17 20:00 Ur Squamous Epith Cells Many per lpf (None-Few) H 01/22/17 20:00 - Microbiology Findings Microbiology Findings: Microbiology, Last 48 Hours 01/23/17 08:15 Sputum Culture - Preliminary Sputum - Clinical Findings Intake & Output: Intake & Output 01/23/17 01/23/17 01/23/17 07:59 15:59 23:59 Intake Total 734 / 734 1914 / 1913 120 / 120 Output Total 650 / 650 525 / 525 Balance 84 / 84 1389 / 1389 120 / 120 - Attending Attestation I examined this patient and my medical decision-making was reviewed with the TAIL BOARD MAN/PA/Advanced Practice Nurse/Resident Physician. I agree with the documented findings, disposition and treatment plan as described except to the extent set forth below. Patient seen and examined. Labs, radiology, chart personally reviewed. 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 Continue sedation and changed to Precedex and Versed PRN., Pulmonary: Acceptable oxygenation and ventilation on vent and Add bronchodilator and increase systemic steroid. Patient may end up with trach with his disease. Cardiovascular: stable GI: Nutrition per dietary and GI prophylaxis per routine Heme: DVT prophylaxis per routine ID: Continue antibiotics and plan to de-escalation Renal; urine out put and renal funtion reviewed Endorcine: blood glucose is monitored Lines: all lines checked and no evidence of infections Skin: skin care to prevent pressure ulcers per nursing routine care I spent 35 min of Critical Care time with this patient. It involved decision making of high complexity to assess, manipulate, and support vital organ system failure and/or to prevent further life threatening deterioration of the patient' s condition. The time involved in the performance of separately reportable procedures was not counted toward critical care time.
[2017-01-23] MEDS ORDERED: Piperacillin/Tazobactam 3.375 GM in D5% in Water (Mini-Bag+) 100 ML IVPB SCH ×2 (07:00)
[2017-01-23] MEDS ORDERED: Aminoglycoside Consult 1 EACH MC ONE (07:39)
[2017-01-23] MEDS: Docusate Oral Soln 100 MG/10 ML UDC GTUBE SCH ×2 (07:59→21:31)
[2017-01-23] MEDS: Nystatin SUSP 5 ML UD.LIQ PO SCH ×4 (07:59→21:31)
[2017-01-23] MEDS: Thiamine (B-1) 100 MG TABLET PO SCH (07:59)
[2017-01-23] MEDS: Vitamin B Complex/Vit C/Vit E 1 EACH TABLET PO SCH (07:59)
[2017-01-23] MEDS: Chlorhexidine Rinse 15 ML MOUTHWASH MM SCH ×2 (07:59→21:31)
[2017-01-23] MEDS: Levofloxacin 500 MG/100 ML 500 MG/100 ML BAG IVPB SCH (07:59)
[2017-01-23] MEDS: Folic Acid 1 MG TABLET PO SCH (08:00)
[2017-01-23] MEDS: Pantoprazole 40 MG VIAL IVP SCH (08:00)
[2017-01-23] MEDS: Budesonide/Formoterol 160/4.5 MDI IH SCH ×2 (08:24→20:14)
[2017-01-23] MEDS ORDERED: Dexmedetomidine HCl 400 MCG/100 ML MLS IVC ONE (08:38)
[2017-01-23] MEDS: Dexmedetomidine HCl 400 MCG/100 ML MLS IVC PRN ×2 (08:58→20:05)
[2017-01-23] MEDS: 0.9 % Sodium Chloride 1,000 ML IVC SCH (10:30)
[2017-01-23] MEDS ORDERED: Silver Sulfadiazine 50 GM TUBE TP SCH (10:45)
[2017-01-23] MEDS ORDERED: Vancomycin 1,250 MG in D5% in Water 250 ML IVPB SCH (11:00)
[2017-01-23 11:47] LABS: Magnesium 1.8 mg/dL (1.6-2.6)
[2017-01-23 11:48] LABS: Phosphorous 2.7 mg/dL (2.3-4.7)
[2017-01-23 12:58] LABS: Ionized Calcium 1.16 mmol/L (1.15-1.35)
[2017-01-23] MEDS: Silver Sulfadiazine 50 GM TUBE TP SCH (13:46)
--- NOTE | 2017-01-23 17:36 | Electrocardiograph Report ---
[place] [id number] Test Date: 2017-01-22 Pat Name: Stefano Guardado Department: 103 Room: [facility] Gender: M [employer] Supervisor: [employer] [facility] : 1945 Requested By: Carter Diop Order Number: [id number] Reading MD: Xuan Hines Measurements Intervals [place] Rate: 135 P: 83 AL: 121 QRS: 72 QRSD: 81 T: 75 QT: 274 QTc: 353 Interpretive Statements SINUS TACHYCARDIA ABNORMAL RHYTHM ECG Electronically Signed On 01-23-2017 17:35:07 EDT by Xuan Hines
[2017-01-23] MEDS: *HR* LORazepam 2 MG/ML VIAL IVP PRN (18:06)
[2017-01-23] MEDS ORDERED: *HR* Midazolam HCl 2 MG/2 ML VIAL ONE (18:49)
[2017-01-23] MEDS: *HR* Midazolam HCl 2 MG/2 ML VIAL IVP PRN ×3 (18:54→23:58)
[2017-01-24] MEDS: FentaNYL (PF) 1,000 MCG in 0.9 % Sodium Chloride 80 ML IVC SCH ×4 (00:09→19:41)
[2017-01-24] MEDS: *HR* Midazolam HCl 2 MG/2 ML VIAL IVP PRN (02:24)
[2017-01-24] MEDS: *HR* LORazepam 2 MG/ML VIAL IVP PRN ×3 (03:36→16:28)
[2017-01-24] MEDS: Levalbuterol Neb 1.25 MG/3 ML IH SCH ×6 (04:15→23:29)
[2017-01-24] MEDS: Ipratropium Neb 0.5 MG NEBULIZER IH SCH ×6 (04:15→23:29)
[2017-01-24 04:48] LABS: Basophils % 0.2 %; Hematocrit 35.9 % (37.5-50.1); Hemoglobin 11.1 g/dL (12.9-16.9); Immature Granulocytes % 0.6 % (0-4); Lymphocytes # 0.5 K/mcL (0.6-4.6); Lymphocytes % 8.6 %; Mean Corpuscular HGB Conc 30.9 g/dL (31.6-35.5); Mean Corpuscular Volume 90.7 fL (83.0-100.0); Mean Platelet Volume 10.4 fL (9.4-12.4); Monocytes # 0.3 K/mcL (0.0-1.3); Monocytes % 4.9 %; Neutrophils # 4.6 K/mcL (1.6-8.9); Platelet Count 218 K/mcL (140-400); Red Blood Count 3.96 M/mcL (4.19-5.50); Red Cell Distribution Width 15.9 % (11.5-14.5); Segmented Neutrophils % 85.7 %
[2017-01-24] MEDS: Dexmedetomidine HCl 400 MCG/100 ML MLS IVC PRN ×3 (04:54→21:00)
[2017-01-24] MEDS: Lacri-Lube 3.5 GM TUBE BOTH EYES SCH ×5 (04:55→21:00)
[2017-01-24 04:57] LABS: ABG Base Excess 18.6 mEq/L (-2.0 to 3.0); ABG HCO3 47.2 mEQ/L (21-27); ABG Oxygen Saturation 99 % (95-98); ABG PH 7.39 pH Units (7.32-7.45); ABG PO2 122 mmHg (85-104); ABG TCO2 49.6 mEq/L (20-26)
[2017-01-24 04:58] LABS: Blood Gas FiO2 40 %
[2017-01-24 04:59] LABS: ABG PCO2 78 mmHg (35-45)
[2017-01-24 05:29] LABS: BUN/Creatinine Ratio 23 (6-26); Blood Urea Nitrogen 18 mg/dL (8-26); Calcium 9.2 mg/dL (8.6-10.8); Carbon Dioxide 37 mEq/L (19-29); Chloride 97 mEq/L (98-109); Glucose 149 mg/dL (70-99); Magnesium 2.1 mg/dL (1.6-2.6); Osmolality,Calculated 297 (280-300); Phosphorous 3.7 mg/dL (2.3-4.7); Potassium 4.7 mEq/L (3.5-4.5); Sodium 141 mEq/L (136-145); eGFR For African Americans > 60 (> 60); eGFR For Non-African Americans > 60 (> 60)
[2017-01-24] MEDS: *HR* Enoxaparin 30 MG/0.3 ML SYRINGE SQ SCH (06:17)
[2017-01-24] MEDS: methylPREDNISolone 125 MG/2 ML VIAL IVP SCH ×3 (06:18→18:29)
--- NOTE | 2017-01-24 08:17 | Pulmonology Progress Note ---
<Gamaliel Lopez - Last Filed: 01/24/17 10:47> Date of Encounter: 01/24/17 Time of Encounter: 08:17 Assessment and Plan (1) Acute on chronic respiratory failure with hypoxia and hypercapnia Current Visit: Yes Status: Acute Patient failed CPAP breathing trial this a.m., with history of alcohol abuse, it might be difficult to extubate with alcohol withdraw/autonomic instability but we will try breathing trial tomorrow morning again, he has a history of intubation in the previous admission, this time is also likely secondary to acute exacerbation of COPD, chest x-ray showed blunting of bilateral costophrenic angle compatible with small bilateral pleural effusions and previously described consolidation in the right lower lobe resolved. We will continue to treat his underlying COPD exacerbation with Symbicort, DuoNeb, IV steroid, antibiotic, and oxygen support through mechanical ventilation. (2) Acute exacerbation of chronic obstructive pulmonary disease Current Visit: Yes Status: Acute Repeated ABG showed improvement after he was intubated on mechanical ventilation , will continue current COPD regimen of Symbicort, DuoNeb, IV steroid, and antibiotic. (3) Alcohol abuse Current Visit: Yes Status: Acute Hx of alcohol abuse, when we tried cpap trial, he was having autonomic instability with tachycardia, therefore he was put back on sedation, will con't CIWA protocol, ativan prn and daily rally pack. (4) Leukocytosis Current Visit: Yes Status: Acute Resolved. Chest x-ray showed resolved previously shown right lower lobe consolidation, when he was admitted he was started on broad-spectrum antibiotics with vancomycin, Zosyn and Levaquin for possible underlying questionable hospital-acquired pneumonia, strep pneumo urinary antigen was positive but this was positive two months ago, this time chest x-ray does not suggest pneumonia, clinically does not look infected, sputum/blood cultures are negative, stopped vanco/zosyn yesterday, con't levaquin as COPD regimen. Qualifiers: Qualified Code(s): D72.829 - Elevated white blood cell count, unspecified (5) Electrolyte abnormality Current Visit: Yes Status: Acute Initial lab showed low ionized calcium, magnesium, albumin and phosphorus levels , he is on electrolyte protocol currently, they were replaced yesterday and the levels were normal this morning, likely 2/2 malnutrition from chronic alcohol use. (6) Elevated amylase Current Visit: Yes Status: Acute Hx of alcohol abuse and current daily drinker, and possible chronic amylase elevation from pancreatic insufficiency, con't to monitor his clinical status. (7) DVT prophylaxis Current Visit: Yes Status: Acute Lovenox sq daily. Subjective Principal diagnosis: Acute on chronic respiratory failure Interval history: This is a 71 years old male with a history of COPD and alcohol abuse who presented to ER with chief complaint of progressively worsening of shortness of breath and patient was intubated in the ER and subsequently sent to ICU for further management. Patient seen and examined. No acute events overnight, patient failed CPAP breathing trial this morning, patient is now back on Precedex and fentanyl IV sedation. Objective PUL Vital signs: Last Vital Signs Temp 97.6 F 01/24/17 07:45 Pulse 85 01/24/17 06:00 Resp 12 01/24/17 08:11 BP 150/84 01/24/17 06:18 Pulse Ox 99 01/24/17 08:11 General appearance: no acute distress, other (On IV sedation) Eyes: nonicteric ENT: oropharynx moist Neck: supple Effort: normal Auscultation: bilateral: diminished breath sounds (Diffusely upper), wheezes ( Slightly at base) Cardiovascular: regular rate and rhythm Gastrointestinal: normoactive bowel sounds, soft, non-distended Integumentary: other (Healing second degree burn on the right fingers, dressing is on) Extremities: no cyanosis, no edema, no clubbing Musculoskeletal: no deformities pupils equal and round, other (On IV sedation) Ventilator Settings Ventilator Settings: Ventilator Settings, Last 8 Hours Ventilator Mode VC+ Ventilator Mode VC+ Ventilator Mode VC+ Ventilator Mode VC+ Ventilator Mode VC+ Ventilator Mode VC+ Ventilator Tidal Volume 500 Setting Ventilator Tidal Volume 500 Setting Ventilator Tidal Volume 500 Setting Ventilator Tidal Volume 500 Setting Ventilator Tidal Volume 500 Setting Ventilator Tidal Volume 500 Setting Ventilator Respiratory Rate 12 Setting Ventilator Respiratory Rate 12 Setting Ventilator Respiratory Rate 12 Setting Ventilator Respiratory Rate 12 Setting Ventilator Respiratory Rate 12 Setting Ventilator Respiratory Rate 12 Setting Actual Respiratory Rate 12 Actual Respiratory Rate 12 Actual Respiratory Rate 12 Actual Respiratory Rate 12 Actual Respiratory Rate 12 Positive End Expiratory 5 Pressure Positive End Expiratory 5 Pressure Positive End Expiratory 5 Pressure Positive End Expiratory 5 Pressure Positive End Expiratory 5 Pressure Positive End Expiratory 5 Pressure Peak Inspiratory Airway 37 Pressure Peak Inspiratory Airway 27 Pressure Peak Inspiratory Airway 26 Pressure Peak Inspiratory Airway 27 Pressure Results - Laboratory Findings CBC and BMP: 01/24/17 04:30 01/24/17 04:30 ABG ABG pH 7.39 pH Units (7.32-7.45) 01/24/17 04:40 ABG pCO2 78 mmHg (35-45) H* 01/24/17 04:40 ABG pO2 122 mmHg (85-104) H 01/24/17 04:40 ABG O2 Saturation 99 % (95-98) H 01/24/17 04:40 PT/INR, D-dimer PT 10.6 Seconds (9.4-12.1) 01/22/17 19:49 Abnormal lab findings: Abnormal lab results RBC 3.96 M/mcL (4.19-5.50) L 01/24/17 04:30 Hgb 11.1 g/dL (12.9-16.9) L 01/24/17 04:30 Hct 35.9 % (37.5-50.1) L 01/24/17 04:30 MCHC 30.9 g/dL (31.6-35.5) L 01/24/17 04:30 RDW 15.9 % (11.5-14.5) H 01/24/17 04:30 Lymphocytes # 0.5 K/mcL (0.6-4.6) L 01/24/17 04:30 ABG pCO2 78 mmHg (35-45) H* 01/24/17 04:40 ABG pO2 122 mmHg (85-104) H 01/24/17 04:40 ABG HCO3 47.2 mEQ/L (21-27) H 01/24/17 04:40 ABG Total CO2 49.6 mEq/L (20-26) H 01/24/17 04:40 ABG O2 Saturation 99 % (95-98) H 01/24/17 04:40 ABG Base Excess 18.6 mEq/L (-2.0 to 3.0) H 01/24/17 04:40 Potassium 4.7 mEq/L (3.5-4.5) H 01/24/17 04:30 Chloride 97 mEq/L (98-109) L 01/24/17 04:30 Carbon Dioxide 37 mEq/L (19-29) H 01/24/17 04:30 Glucose 149 mg/dL (70-99) H 01/24/17 04:30 POC Glucose 148 (58-89) H 01/24/17 01:22 Ammonia 75 mcmol/L (18-72) H 01/22/17 20:33 Serum Total Protein 5.8 g/dL (6.0-8.3) L 01/23/17 00:30 Albumin 2.4 g/dL (3.5-5.0) L 01/23/17 00:30 Albumin/Globulin Ratio 0.7 (1.1-2.2) L 01/23/17 00:30 HDL Cholesterol 60 mg/dL (40-59) H 01/23/17 04:00 Amylase 211 Units/L (25-125) H 01/23/17 00:30 Lipase 6 Units/L (8-78) L 01/23/17 00:30 Urine Clarity Cloudy (Clear) A 01/22/17 20:00 Urine Protein 100 mg/dL (Neg-Trace) H 01/22/17 20:00 Urine Blood Small (Negative) H 01/22/17 20:00 Urine Microscopic RBC 3-5 per hpf (0-3) H 01/22/17 20:00 Urine Microscopic WBC 3-5 per hpf (0-3) H 01/22/17 20:00 Ur Squamous Epith Cells Many per lpf (None-Few) H 01/22/17 20:00 - Microbiology Findings Microbiology Findings: Microbiology, Last 48 Hours 01/23/17 08:15 Sputum Culture - Preliminary Sputum - Clinical Findings Intake & Output: Intake & Output 01/23/17 01/24/17 01/24/17 23:59 07:59 15:59 Intake Total 495 / 495 285 / 285 Output Total 200 / 200 400 / 400 Balance 295 / 295 -115 / -115 Weight 67 kg Consult Discharge Plan - Plan Referrals: NO,PCP [Primary Care Provider] - <Tevin Burns - Last Filed: 01/24/17 16:34> Date of Encounter: 01/24/17 Objective PUL Vital signs: Last Vital Signs Temp 97.7 F 01/24/17 15:43 Pulse 71 01/24/17 15:35 Resp 12 01/24/17 15:34 BP 134/87 01/24/17 15:00 Pulse Ox 92 01/24/17 15:34 Ventilator Settings Ventilator Settings: Ventilator Settings, Last 8 Hours Ventilator Mode VC+ Ventilator Mode VC+ Ventilator Mode VC+ Ventilator Mode VC+ Ventilator Mode VC+ Ventilator Mode VC+ Ventilator Mode VC+ Ventilator Mode VC+ Ventilator Mode VC+ Ventilator Mode VC+ Ventilator Tidal Volume 500 Setting Ventilator Tidal Volume 500 Setting Ventilator Tidal Volume 500 Setting Ventilator Tidal Volume 500 Setting Ventilator Tidal Volume 500 Setting Ventilator Tidal Volume 500 Setting Ventilator Tidal Volume 500 Setting Ventilator Tidal Volume 500 Setting Ventilator Tidal Volume 500 Setting Ventilator Tidal Volume 500 Setting Ventilator Respiratory Rate 12 Setting Ventilator Respiratory Rate 12 Setting Ventilator Respiratory Rate 12 Setting Ventilator Respiratory Rate 12 Setting Ventilator Respiratory Rate 12 Setting Ventilator Respiratory Rate 12 Setting Ventilator Respiratory Rate 12 Setting Ventilator Respiratory Rate 12 Setting Ventilator Respiratory Rate 12 Setting Ventilator Respiratory Rate 12 Setting Actual Respiratory Rate 12 Actual Respiratory Rate 12 Actual Respiratory Rate 12 Actual Respiratory Rate 12 Actual Respiratory Rate 12 Actual Respiratory Rate 12 Actual Respiratory Rate 12 Actual Respiratory Rate 12 Actual Respiratory Rate 12 Actual Respiratory Rate 12 Positive End Expiratory 5 Pressure Positive End Expiratory 5 Pressure Positive End Expiratory 5 Pressure Positive End Expiratory 5 Pressure Positive End Expiratory 5 Pressure Positive End Expiratory 5 Pressure Positive End Expiratory 5 Pressure Positive End Expiratory 5 Pressure Positive End Expiratory 5 Pressure Positive End Expiratory 5 Pressure Peak Inspiratory Airway 35 Pressure Peak Inspiratory Airway 32 Pressure Peak Inspiratory Airway 31 Pressure Peak Inspiratory Airway 30 Pressure Peak Inspiratory Airway 31 Pressure Peak Inspiratory Airway 30 Pressure Peak Inspiratory Airway 30 Pressure Peak Inspiratory Airway 31 Pressure Peak Inspiratory Airway 31 Pressure Results - Laboratory Findings CBC and BMP: 01/24/17 04:30 01/24/17 04:30 ABG ABG pH 7.39 pH Units (7.32-7.45) 01/24/17 04:40 ABG pCO2 78 mmHg (35-45) H* 01/24/17 04:40 ABG pO2 122 mmHg (85-104) H 01/24/17 04:40 ABG O2 Saturation 99 % (95-98) H 01/24/17 04:40 PT/INR, D-dimer PT 10.6 Seconds (9.4-12.1) 01/22/17 19:49 Abnormal lab findings: Abnormal lab results RBC 3.96 M/mcL (4.19-5.50) L 01/24/17 04:30 Hgb 11.1 g/dL (12.9-16.9) L 01/24/17 04:30 Hct 35.9 % (37.5-50.1) L 01/24/17 04:30 MCHC 30.9 g/dL (31.6-35.5) L 01/24/17 04:30 RDW 15.9 % (11.5-14.5) H 01/24/17 04:30 Lymphocytes # 0.5 K/mcL (0.6-4.6) L 01/24/17 04:30 ABG pCO2 78 mmHg (35-45) H* 01/24/17 04:40 ABG pO2 122 mmHg (85-104) H 01/24/17 04:40 ABG HCO3 47.2 mEQ/L (21-27) H 01/24/17 04:40 ABG Total CO2 49.6 mEq/L (20-26) H 01/24/17 04:40 ABG O2 Saturation 99 % (95-98) H 01/24/17 04:40 ABG Base Excess 18.6 mEq/L (-2.0 to 3.0) H 01/24/17 04:40 Potassium 4.7 mEq/L (3.5-4.5) H 01/24/17 04:30 Chloride 97 mEq/L (98-109) L 01/24/17 04:30 Carbon Dioxide 37 mEq/L (19-29) H 01/24/17 04:30 Glucose 149 mg/dL (70-99) H 01/24/17 04:30 POC Glucose 136 (58-89) H 01/24/17 11:14 Ammonia 75 mcmol/L (18-72) H 01/22/17 20:33 Serum Total Protein 5.8 g/dL (6.0-8.3) L 01/23/17 00:30 Albumin 2.4 g/dL (3.5-5.0) L 01/23/17 00:30 Albumin/Globulin Ratio 0.7 (1.1-2.2) L 01/23/17 00:30 HDL Cholesterol 60 mg/dL (40-59) H 01/23/17 04:00 Amylase 211 Units/L (25-125) H 01/23/17 00:30 Lipase 6 Units/L (8-78) L 01/23/17 00:30 Urine Clarity Cloudy (Clear) A 01/22/17 20:00 Urine Protein 100 mg/dL (Neg-Trace) H 01/22/17 20:00 Urine Blood Small (Negative) H 01/22/17 20:00 Urine Microscopic RBC 3-5 per hpf (0-3) H 01/22/17 20:00 Urine Microscopic WBC 3-5 per hpf (0-3) H 01/22/17 20:00 Ur Squamous Epith Cells Many per lpf (None-Few) H 01/22/17 20:00 - Microbiology Findings Microbiology Findings: Microbiology, Last 48 Hours 01/23/17 08:15 Sputum Culture - Preliminary Sputum - Clinical Findings Intake & Output: Intake & Output 01/24/17 01/24/17 01/24/17 07:59 15:59 23:59 Intake Total 285 / 285 200 / 200 Output Total 400 / 400 200 / 200 Balance -115 / -115 0 / 0 Weight 67 kg - Attending Attestation I examined this patient and my medical decision-making was reviewed with the MACHINE WIPER/PA/Advanced Practice Nurse/Resident Physician. I agree with the documented findings, disposition and treatment plan as described except to the extent set forth below. Patient seen and examined. Labs, radiology, chart personally reviewed. Agree with resident's history and physical, assessment, plan with following comments: CABLE FORMER: Patient does not follows commands, patient agitated easily when his own lower dose of sedation and there is always a risk of withdrawal. Pulmonary: Acceptable oxygenation and ventilation. Patient could be ventilatory dependent due to his underlying COPD. Patient failed spontaneous breathing trial and to continue supports for now. Cardiovascular: stable GI: Nutrition per dietary and GI prophylaxis per routine Heme: DVT prophylaxis per routine ID: Continue antibiotics and plan to de-escalation Renal; urine out put and renal funtion reviewed Endorcine: blood glucose is monitored Lines: all lines checked and no evidence of infections Skin: skin care to prevent pressure ulcers per nursing routine care
[2017-01-24] MEDS: Nystatin SUSP 5 ML UD.LIQ PO SCH ×4 (08:55→21:00)
[2017-01-24] MEDS: Silver Sulfadiazine 50 GM TUBE TP SCH (08:55)
[2017-01-24] MEDS: Docusate Oral Soln 100 MG/10 ML UDC GTUBE SCH ×2 (08:55→21:00)
[2017-01-24] MEDS: Pantoprazole 40 MG VIAL IVP SCH (08:55)
[2017-01-24] MEDS: Thiamine (B-1) 100 MG TABLET PO SCH (08:56)
[2017-01-24] MEDS: Chlorhexidine Rinse 15 ML MOUTHWASH MM SCH ×2 (08:56→21:00)
[2017-01-24] MEDS: Vitamin B Complex/Vit C/Vit E 1 EACH TABLET PO SCH (08:56)
[2017-01-24] MEDS: Levofloxacin 500 MG/100 ML 500 MG/100 ML BAG IVPB SCH (08:56)
[2017-01-24] MEDS: Folic Acid 1 MG TABLET PO SCH (08:56)
[2017-01-24] MEDS: Budesonide/Formoterol 160/4.5 MDI IH SCH ×2 (11:20→20:17)
[2017-01-25] MEDS: methylPREDNISolone 125 MG/2 ML VIAL IVP SCH ×4 (00:08→17:02)
[2017-01-25] MEDS: *HR* LORazepam 2 MG/ML VIAL IVP PRN ×2 (00:11→14:29)
[2017-01-25] MEDS: Lacri-Lube 3.5 GM TUBE BOTH EYES SCH ×7 (00:37→23:45)
[2017-01-25] MEDS: FentaNYL (PF) 1,000 MCG in 0.9 % Sodium Chloride 80 ML IVC SCH ×6 (01:40→23:47)
[2017-01-25] MEDS: Levalbuterol Neb 1.25 MG/3 ML IH SCH ×5 (04:01→20:31)
[2017-01-25] MEDS: Ipratropium Neb 0.5 MG NEBULIZER IH SCH ×5 (04:01→20:31)
[2017-01-25 04:26] LABS: BUN/Creatinine Ratio 35 (6-26); Calcium 9.3 mg/dL (8.6-10.8); Chloride 97 mEq/L (98-109); Glucose 187 mg/dL (70-99); Osmolality,Calculated 302 (280-300); Potassium 5.1 mEq/L (3.5-4.5); Sodium 141 mEq/L (136-145); eGFR For African Americans > 60 (> 60); eGFR For Non-African Americans > 60 (> 60)
[2017-01-25 04:26] LABS: ABG Base Excess 17.5 mEq/L (-2.0 to 3.0); ABG HCO3 44.5 mEQ/L (21-27); ABG Oxygen Saturation 100 % (95-98); ABG PCO2 64 mmHg (35-45); ABG PH 7.45 pH Units (7.32-7.45); ABG PO2 156 mmHg (85-104); ABG TCO2 46.5 mEq/L (20-26)
[2017-01-25 04:27] LABS: Blood Urea Nitrogen 28 mg/dL (8-26)
[2017-01-25 04:27] LABS: Blood Gas FiO2 40 %
[2017-01-25 04:29] LABS: Carbon Dioxide 41 mEq/L (19-29)
[2017-01-25] MEDS: Dexmedetomidine HCl 400 MCG/100 ML MLS IVC PRN ×3 (05:46→21:10)
[2017-01-25] MEDS: *HR* Enoxaparin 40 MG/0.4 ML SYRINGE SQ SCH (05:47)
[2017-01-25] MEDS: Budesonide/Formoterol 160/4.5 MDI IH SCH ×2 (07:26→20:31)
[2017-01-25] MEDS: *HR* Midazolam HCl 2 MG/2 ML VIAL IVP PRN ×2 (07:38→10:48)
[2017-01-25] MEDS: Nystatin SUSP 5 ML UD.LIQ PO SCH ×4 (08:02→19:37)
[2017-01-25] MEDS: Docusate Oral Soln 100 MG/10 ML UDC GTUBE SCH ×2 (08:02→19:37)
[2017-01-25] MEDS: Vitamin B Complex/Vit C/Vit E 1 EACH TABLET PO SCH (08:02)
[2017-01-25] MEDS: Chlorhexidine Rinse 15 ML MOUTHWASH MM SCH ×2 (08:02→19:37)
[2017-01-25] MEDS: Folic Acid 1 MG TABLET PO SCH (08:02)
[2017-01-25] MEDS: Thiamine (B-1) 100 MG TABLET PO SCH (08:02)
[2017-01-25] MEDS: Pantoprazole 40 MG VIAL IVP SCH (08:02)
[2017-01-25] MEDS: Levofloxacin 500 MG/100 ML 500 MG/100 ML BAG IVPB SCH (08:04)
[2017-01-25] MEDS: Silver Sulfadiazine 50 GM TUBE TP SCH (08:04)
--- NOTE | 2017-01-25 09:09 | Pulmonology Progress Note ---
<Gamaliel Lopez - Last Filed: 01/25/17 09:07> Date of Encounter: 01/25/17 Time of Encounter: 09:07 Assessment and Plan (1) Acute on chronic respiratory failure with hypoxia and hypercapnia Current Visit: Yes Status: Acute Patient failed CPAP breathing trial this a.m., with history of alcohol abuse, it might be difficult to extubate with alcohol withdraw/autonomic instability but we will try breathing trial tomorrow morning again, he has a history of intubation in the previous admission, this time is also likely secondary to acute exacerbation of COPD, chest x-ray showed blunting of bilateral costophrenic angle compatible with small bilateral pleural effusions and previously described consolidation in the right lower lobe resolved. We will continue to treat his underlying COPD exacerbation with Symbicort, DuoNeb, IV steroid, antibiotic, and oxygen support through mechanical ventilation. I spoke to patient's family members at the bedside, patient's previous wish was that he does not want to have a trach done in case he needs one. (2) Acute exacerbation of chronic obstructive pulmonary disease Current Visit: Yes Status: Acute Repeated ABG showed improvement after he was intubated on mechanical ventilation , will continue current COPD regimen of Symbicort, DuoNeb, IV steroid, and antibiotic. (3) Alcohol abuse Current Visit: Yes Status: Acute Hx of alcohol abuse, when we tried cpap trial, he was having autonomic instability with tachycardia, therefore he was put back on sedation, will con't CIWA protocol, ativan prn and daily rally pack. (4) Leukocytosis Current Visit: Yes Status: Acute Resolved. Chest x-ray showed resolved previously shown right lower lobe consolidation, when he was admitted he was started on broad-spectrum antibiotics with vancomycin, Zosyn and Levaquin for possible underlying questionable hospital-acquired pneumonia, strep pneumo urinary antigen was positive but this was positive two months ago, sputum culture came back gram- negative mario, pending final sensitivity, this time chest x-ray does not suggest pneumonia, clinically does not look infected, blood cultures are negative, stopped vanco/zosyn few days ago, con't levaquin as COPD regimen. Qualifiers: Qualified Code(s): D72.829 - Elevated white blood cell count, unspecified (5) Electrolyte abnormality Current Visit: Yes Status: Acute Initial lab showed low ionized calcium, magnesium, albumin and phosphorus levels , he is on electrolyte protocol currently, they were replaced yesterday and the levels were normal this morning, likely 2/2 malnutrition from chronic alcohol use. (6) Elevated amylase Current Visit: Yes Status: Acute Hx of alcohol abuse and current daily drinker, and possible chronic amylase elevation from pancreatic insufficiency, con't to monitor his clinical status. (7) DVT prophylaxis Current Visit: Yes Status: Acute Lovenox sq daily. Subjective Principal diagnosis: Acute on chronic respiratory failure Interval history: This is a 71 years old male with a history of COPD and alcohol abuse who presented to ER with chief complaint of progressively worsening of shortness of breath and patient was intubated in the ER and subsequently sent to ICU for further management. Patient seen and examined. No acute events overnight, patient failed CPAP breathing trial this morning due to autonomic instability, patient is now back on Precedex and fentanyl IV sedation. Objective PUL Vital signs: Last Vital Signs Temp 98.6 F 01/25/17 07:14 Pulse 76 01/25/17 09:00 Resp 12 01/25/17 09:00 BP 115/63 01/25/17 09:00 Pulse Ox 94 01/25/17 09:00 General appearance: no acute distress, other (On IV sedation) Eyes: nonicteric ENT: oropharynx moist Neck: supple Effort: normal Auscultation: bilateral: diminished breath sounds (Upper slightly), wheezes ( Slightly at base) Cardiovascular: regular rate and rhythm Gastrointestinal: normoactive bowel sounds, soft, non-distended Integumentary: other (Healing second degree burn on the right fingers, dressing is on) Extremities: no cyanosis, no edema, no clubbing Musculoskeletal: no deformities pupils equal and round, other (On IV sedation) Ventilator Settings Ventilator Settings: Ventilator Settings, Last 8 Hours Ventilator Mode VC+ Ventilator Mode VC+ Ventilator Mode CPAP Ventilator Mode VC+ Ventilator Mode VC+ Ventilator Mode VC+ Ventilator Tidal Volume 500 Setting Ventilator Tidal Volume 500 Setting Ventilator Tidal Volume 500 Setting Ventilator Tidal Volume 500 Setting Ventilator Tidal Volume 500 Setting Ventilator Respiratory Rate 12 Setting Ventilator Respiratory Rate 12 Setting Ventilator Respiratory Rate 12 Setting Ventilator Respiratory Rate 12 Setting Ventilator Respiratory Rate 12 Setting Actual Respiratory Rate 12 Actual Respiratory Rate 12 Actual Respiratory Rate 11 Actual Respiratory Rate 12 Actual Respiratory Rate 12 Positive End Expiratory 5 Pressure Positive End Expiratory 5 Pressure Positive End Expiratory 5 Pressure Positive End Expiratory 5 Pressure Positive End Expiratory 5 Pressure Positive End Expiratory 5 Pressure Peak Inspiratory Airway 32 Pressure Peak Inspiratory Airway 32 Pressure Peak Inspiratory Airway 16 Pressure Peak Inspiratory Airway 31 Pressure Peak Inspiratory Airway 30 Pressure Results - Laboratory Findings CBC and BMP: 01/24/17 04:30 01/25/17 04:05 ABG ABG pH 7.45 pH Units (7.32-7.45) 01/25/17 04:15 ABG pCO2 64 mmHg (35-45) H 01/25/17 04:15 ABG pO2 156 mmHg (85-104) H 01/25/17 04:15 ABG O2 Saturation 100 % (95-98) H 01/25/17 04:15 PT/INR, D-dimer PT 10.6 Seconds (9.4-12.1) 01/22/17 19:49 Abnormal lab findings: Abnormal lab results RBC 3.96 M/mcL (4.19-5.50) L 01/24/17 04:30 Hgb 11.1 g/dL (12.9-16.9) L 01/24/17 04:30 Hct 35.9 % (37.5-50.1) L 01/24/17 04:30 MCHC 30.9 g/dL (31.6-35.5) L 01/24/17 04:30 RDW 15.9 % (11.5-14.5) H 01/24/17 04:30 Lymphocytes # 0.5 K/mcL (0.6-4.6) L 01/24/17 04:30 ABG pCO2 64 mmHg (35-45) H 01/25/17 04:15 ABG pO2 156 mmHg (85-104) H 01/25/17 04:15 ABG HCO3 44.5 mEQ/L (21-27) H 01/25/17 04:15 ABG Total CO2 46.5 mEq/L (20-26) H 01/25/17 04:15 ABG O2 Saturation 100 % (95-98) H 01/25/17 04:15 ABG Base Excess 17.5 mEq/L (-2.0 to 3.0) H 01/25/17 04:15 Potassium 5.1 mEq/L (3.5-4.5) H 01/25/17 04:05 Chloride 97 mEq/L (98-109) L 01/25/17 04:05 Carbon Dioxide 41 mEq/L (19-29) H* 01/25/17 04:05 BUN 28 mg/dL (8-26) H D 01/25/17 04:05 BUN/Creatinine Ratio 35 (6-26) H 01/25/17 04:05 Glucose 187 mg/dL (70-99) H 01/25/17 04:05 POC Glucose 172 (58-89) H 01/25/17 05:48 Calculated Osmolality 302 (280-300) H 01/25/17 04:05 Ammonia 75 mcmol/L (18-72) H 01/22/17 20:33 Serum Total Protein 5.8 g/dL (6.0-8.3) L 01/23/17 00:30 Albumin 2.4 g/dL (3.5-5.0) L 01/23/17 00:30 Albumin/Globulin Ratio 0.7 (1.1-2.2) L 01/23/17 00:30 HDL Cholesterol 60 mg/dL (40-59) H 01/23/17 04:00 Amylase 211 Units/L (25-125) H 01/23/17 00:30 Lipase 6 Units/L (8-78) L 01/23/17 00:30 Urine Clarity Cloudy (Clear) A 01/22/17 20:00 Urine Protein 100 mg/dL (Neg-Trace) H 01/22/17 20:00 Urine Blood Small (Negative) H 01/22/17 20:00 Urine Microscopic RBC 3-5 per hpf (0-3) H 01/22/17 20:00 Urine Microscopic WBC 3-5 per hpf (0-3) H 01/22/17 20:00 Ur Squamous Epith Cells Many per lpf (None-Few) H 01/22/17 20:00 - Microbiology Findings Microbiology Findings: Microbiology, Last 48 Hours 01/23/17 08:15 Sputum Culture - Preliminary Sputum Gram Negative Mario - Clinical Findings Intake & Output: Intake & Output 01/24/17 01/25/17 01/25/17 23:59 07:59 15:59 Intake Total 200 / 200 400 / 400 Output Total 475 / 475 300 / 300 Balance -275 / -275 100 / 100 Weight 66.9 kg Consult Discharge Plan - Plan Referrals: NO,PCP [Primary Care Provider] - <Saadlla,Haval M - Last Filed: 01/25/17 15:14> Date of Encounter: 01/25/17 Objective PUL Vital signs: Last Vital Signs Temp 98 F 01/25/17 12:00 Pulse 68 01/25/17 15:00 Resp 12 01/25/17 15:00 BP 119/63 01/25/17 15:00 Pulse Ox 96 01/25/17 15:00 Ventilator Settings Ventilator Settings: Ventilator Settings, Last 8 Hours Ventilator Mode VC+ Ventilator Mode VC+ Ventilator Mode VC+ Ventilator Mode VC+ Ventilator Mode VC+ Ventilator Mode VC+ Ventilator Mode VC+ Ventilator Mode VC+ Ventilator Mode VC+ Ventilator Mode VC+ Ventilator Tidal Volume 500 Setting Ventilator Tidal Volume 500 Setting Ventilator Tidal Volume 500 Setting Ventilator Tidal Volume 500 Setting Ventilator Tidal Volume 500 Setting Ventilator Tidal Volume 500 Setting Ventilator Tidal Volume 500 Setting Ventilator Tidal Volume 500 Setting Ventilator Tidal Volume 500 Setting Ventilator Tidal Volume 500 Setting Ventilator Tidal Volume 500 Setting Ventilator Tidal Volume 500 Setting Ventilator Respiratory Rate 12 Setting Ventilator Respiratory Rate 12 Setting Ventilator Respiratory Rate 12 Setting Ventilator Respiratory Rate 12 Setting Ventilator Respiratory Rate 12 Setting Ventilator Respiratory Rate 12 Setting Ventilator Respiratory Rate 12 Setting Ventilator Respiratory Rate 12 Setting Ventilator Respiratory Rate 12 Setting Ventilator Respiratory Rate 12 Setting Ventilator Respiratory Rate 12 Setting Ventilator Respiratory Rate 12 Setting Actual Respiratory Rate 12 Actual Respiratory Rate 12 Actual Respiratory Rate 12 Actual Respiratory Rate 12 Actual Respiratory Rate 12 Actual Respiratory Rate 12 Actual Respiratory Rate 12 Actual Respiratory Rate 12 Actual Respiratory Rate 12 Actual Respiratory Rate 12 Actual Respiratory Rate 12 Actual Respiratory Rate 14 Positive End Expiratory 5 Pressure Positive End Expiratory 5 Pressure Positive End Expiratory 5 Pressure Positive End Expiratory 5 Pressure Positive End Expiratory 5 Pressure Positive End Expiratory 5 Pressure Positive End Expiratory 5 Pressure Positive End Expiratory 5 Pressure Positive End Expiratory 5 Pressure Positive End Expiratory 5 Pressure Positive End Expiratory 5 Pressure Positive End Expiratory 5 Pressure Peak Inspiratory Airway 26 Pressure Peak Inspiratory Airway 26 Pressure Peak Inspiratory Airway 27 Pressure Peak Inspiratory Airway 26 Pressure Peak Inspiratory Airway 26 Pressure Peak Inspiratory Airway 26 Pressure Peak Inspiratory Airway 25 Pressure Peak Inspiratory Airway 31 Pressure Peak Inspiratory Airway 31 Pressure Peak Inspiratory Airway 32 Pressure Peak Inspiratory Airway 32 Pressure Peak Inspiratory Airway 24 Pressure Results - Laboratory Findings CBC and BMP: 01/24/17 04:30 01/25/17 04:05 ABG ABG pH 7.45 pH Units (7.32-7.45) 01/25/17 04:15 ABG pCO2 64 mmHg (35-45) H 01/25/17 04:15 ABG pO2 156 mmHg (85-104) H 01/25/17 04:15 ABG O2 Saturation 100 % (95-98) H 01/25/17 04:15 PT/INR, D-dimer PT 10.6 Seconds (9.4-12.1) 01/22/17 19:49 Abnormal lab findings: Abnormal lab results RBC 3.96 M/mcL (4.19-5.50) L 01/24/17 04:30 Hgb 11.1 g/dL (12.9-16.9) L 01/24/17 04:30 Hct 35.9 % (37.5-50.1) L 01/24/17 04:30 MCHC 30.9 g/dL (31.6-35.5) L 01/24/17 04:30 RDW 15.9 % (11.5-14.5) H 01/24/17 04:30 Lymphocytes # 0.5 K/mcL (0.6-4.6) L 01/24/17 04:30 ABG pCO2 64 mmHg (35-45) H 01/25/17 04:15 ABG pO2 156 mmHg (85-104) H 01/25/17 04:15 ABG HCO3 44.5 mEQ/L (21-27) H 01/25/17 04:15 ABG Total CO2 46.5 mEq/L (20-26) H 01/25/17 04:15 ABG O2 Saturation 100 % (95-98) H 01/25/17 04:15 ABG Base Excess 17.5 mEq/L (-2.0 to 3.0) H 01/25/17 04:15 Potassium 5.1 mEq/L (3.5-4.5) H 01/25/17 04:05 Chloride 97 mEq/L (98-109) L 01/25/17 04:05 Carbon Dioxide 41 mEq/L (19-29) H* 01/25/17 04:05 BUN 28 mg/dL (8-26) H D 01/25/17 04:05 BUN/Creatinine Ratio 35 (6-26) H 01/25/17 04:05 Glucose 187 mg/dL (70-99) H 01/25/17 04:05 POC Glucose 173 (58-89) H 01/25/17 11:44 Calculated Osmolality 302 (280-300) H 01/25/17 04:05 Ammonia 75 mcmol/L (18-72) H 01/22/17 20:33 Serum Total Protein 5.8 g/dL (6.0-8.3) L 01/23/17 00:30 Albumin 2.4 g/dL (3.5-5.0) L 01/23/17 00:30 Albumin/Globulin Ratio 0.7 (1.1-2.2) L 01/23/17 00:30 HDL Cholesterol 60 mg/dL (40-59) H 01/23/17 04:00 Amylase 211 Units/L (25-125) H 01/23/17 00:30 Lipase 6 Units/L (8-78) L 01/23/17 00:30 Urine Clarity Cloudy (Clear) A 01/22/17 20:00 Urine Protein 100 mg/dL (Neg-Trace) H 01/22/17 20:00 Urine Blood Small (Negative) H 01/22/17 20:00 Urine Microscopic RBC 3-5 per hpf (0-3) H 01/22/17 20:00 Urine Microscopic WBC 3-5 per hpf (0-3) H 01/22/17 20:00 Ur Squamous Epith Cells Many per lpf (None-Few) H 01/22/17 20:00 - Microbiology Findings Microbiology Findings: Microbiology, Last 48 Hours 01/23/17 08:15 Sputum Culture - Preliminary Sputum Gram Negative Mario - Clinical Findings Intake & Output: Intake & Output 01/24/17 01/25/17 01/25/17 23:59 07:59 15:59 Intake Total 200 / 200 400 / 400 728 / 728 Output Total 475 / 475 300 / 300 250 / 250 Balance -275 / -275 100 / 100 478 / 478 Weight 66.9 kg - Attending Attestation I examined this patient and my medical decision-making was reviewed with the PHYSICAL SCIENCE TEACHER/PA/Advanced Practice Nurse/Resident Physician. I agree with the documented findings, disposition and treatment plan as described except to the extent set forth below. Patient seen and examined. Labs, radiology, chart personally reviewed. 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 Patient does not tolerate CPAP trial and I expect it would be difficult to get him off ventilator. Will give him more time and family is updated. We will consider palliative care consultation if maile is no progress. Cardiovascular: stable GI: Nutrition per dietary and GI prophylaxis per routine Heme: DVT prophylaxis per routine ID: Continue antibiotics and plan to de-escalation Renal; urine out put and renal funtion reviewed Endorcine: blood glucose is monitored Lines: all lines checked and no evidence of infections Skin: skin care to prevent pressure ulcers per nursing routine care Overall poor prognosis
[2017-01-26] MEDS: Ipratropium Neb 0.5 MG NEBULIZER IH SCH ×7 (00:23→23:40)
[2017-01-26] MEDS: Levalbuterol Neb 1.25 MG/3 ML IH SCH ×7 (00:23→23:40)
[2017-01-26] MEDS: *HR* Midazolam HCl 2 MG/2 ML VIAL IVP PRN ×6 (01:31→16:45)
[2017-01-26] MEDS: *HR* LORazepam 2 MG/ML VIAL IVP PRN ×2 (01:31→07:13)
[2017-01-26] MEDS: Lacri-Lube 3.5 GM TUBE BOTH EYES SCH ×6 (04:19→23:54)
[2017-01-26] MEDS: Dexmedetomidine HCl 400 MCG/100 ML MLS IVC PRN ×4 (04:19→22:53)
[2017-01-26 04:38] LABS: Hematocrit 36.2 % (37.5-50.1); Hemoglobin 10.8 g/dL (12.9-16.9); Immature Granulocytes % 0.6 % (0-4); Lymphocytes # 0.5 K/mcL (0.6-4.6); Lymphocytes % 7.5 %; Mean Corpuscular HGB Conc 29.8 g/dL (31.6-35.5); Mean Corpuscular Hemoglobin 26.5 pg (28.0-33.3); Mean Corpuscular Volume 88.9 fL (83.0-100.0); Mean Platelet Volume 9.5 fL (9.4-12.4); Monocytes % 13.8 %; Neutrophils # 5.5 K/mcL (1.6-8.9); Platelet Count 221 K/mcL (140-400); Red Blood Count 4.07 M/mcL (4.19-5.50); Red Cell Distribution Width 15.9 % (11.5-14.5); Segmented Neutrophils % 78.1 %
[2017-01-26] MEDS ORDERED: FentaNYL (PF) 1,000 MCG in 0.9 % Sodium Chloride 80 ML IVC SCH (04:45)
[2017-01-26 04:50] LABS: BUN/Creatinine Ratio 40 (6-26); Blood Urea Nitrogen 30 mg/dL (8-26); Carbon Dioxide 39 mEq/L (19-29); Chloride 102 mEq/L (98-109); Glucose 177 mg/dL (70-99); Osmolality,Calculated 311 (280-300); Potassium 4.3 mEq/L (3.5-4.5); Sodium 145 mEq/L (136-145); eGFR For African Americans > 60 (> 60); eGFR For Non-African Americans > 60 (> 60)
[2017-01-26] MEDS: FentaNYL (PF) 3,000 MCG in 0.9 % Sodium Chloride 240 ML IVC SCH ×2 (04:54→12:26)
[2017-01-26] MEDS: *HR* Enoxaparin 40 MG/0.4 ML SYRINGE SQ SCH (05:21)
[2017-01-26 05:36] LABS: ABG Base Excess 15.5 mEq/L (-2.0 to 3.0); ABG HCO3 44.2 mEQ/L (21-27); ABG Oxygen Saturation 94 % (95-98); ABG PH 7.35 pH Units (7.32-7.45); ABG PO2 73 mmHg (85-104); ABG TCO2 46.7 mEq/L (20-26)
[2017-01-26 05:40] LABS: Blood Gas FiO2 40 %
[2017-01-26 05:42] LABS: ABG PCO2 80 mmHg (35-45)
[2017-01-26] MEDS: Thiamine (B-1) 100 MG TABLET PO SCH (07:13)
[2017-01-26] MEDS: Chlorhexidine Rinse 15 ML MOUTHWASH MM SCH ×2 (07:13→19:57)
[2017-01-26] MEDS: Folic Acid 1 MG TABLET PO SCH (07:13)
[2017-01-26] MEDS: Vitamin B Complex/Vit C/Vit E 1 EACH TABLET PO SCH (07:13)
[2017-01-26] MEDS: Levofloxacin 500 MG/100 ML 500 MG/100 ML BAG IVPB SCH (07:13)
[2017-01-26] MEDS: Pantoprazole 40 MG VIAL IVP SCH (07:13)
[2017-01-26] MEDS: Docusate Oral Soln 100 MG/10 ML UDC GTUBE SCH ×2 (07:13→19:57)
[2017-01-26] MEDS: Nystatin SUSP 5 ML UD.LIQ PO SCH ×4 (07:15→19:57)
[2017-01-26] MEDS: Silver Sulfadiazine 50 GM TUBE TP SCH (07:17)
[2017-01-26] MEDS: predniSONE 20 MG TABLET PO SCH (07:17)
--- NOTE | 2017-01-26 08:16 | Pulmonology Progress Note ---
<Gamaliel Lopez - Last Filed: 01/26/17 11:21> Date of Encounter: 01/26/17 Time of Encounter: 08:16 Assessment and Plan (1) Acute on chronic respiratory failure with hypoxia and hypercapnia Current Visit: Yes Status: Acute Patient failed CPAP breathing trial again this a.m., with history of alcohol abuse, it might be difficult to extubate with alcohol withdraw/autonomic instability but we will try over the weekend again, he has a history of intubation in the previous admission, this time is also likely secondary to acute exacerbation of COPD, chest x-ray showed blunting of bilateral costophrenic angle compatible with small bilateral pleural effusions and previously described consolidation in the right lower lobe resolved. We will continue to treat his underlying COPD exacerbation with Symbicort, DuoNeb, IV steroid, antibiotic, and oxygen support through mechanical ventilation. I spoke to patient's family members at the bedside, patient's previous wish was that he does not want to have a trach done in case he needs one, palliative is on board, his son will come back next week to decide goal of care if pt is still on mechanical vent. (2) Acute exacerbation of chronic obstructive pulmonary disease Current Visit: Yes Status: Acute Repeated ABG showed improvement after he was intubated on mechanical ventilation , will continue current COPD regimen of Symbicort, DuoNeb, po steroid, and antibiotic. (3) Alcohol abuse Current Visit: Yes Status: Acute Hx of alcohol abuse, when we tried cpap trial, he was having autonomic instability with tachycardia, therefore he was put back on sedation, will con't CIWA protocol, ativan prn and daily rally pack. (4) Leukocytosis Current Visit: Yes Status: Acute Resolved. Chest x-ray showed resolved previously shown right lower lobe consolidation, when he was admitted he was started on broad-spectrum antibiotics with vancomycin, Zosyn and Levaquin for possible underlying questionable hospital-acquired pneumonia, strep pneumo urinary antigen was positive but this was positive two months ago, sputum culture came back serratia marcescens, sensitive to levaquin, this time chest x-ray does not suggest pneumonia, clinically does not look infected, blood cultures are negative, stopped vanco/zosyn few days ago, con't levaquin as COPD regimen. Qualifiers: Qualified Code(s): D72.829 - Elevated white blood cell count, unspecified (5) Elevated amylase Current Visit: Yes Status: Acute Hx of alcohol abuse and current daily drinker, and possible chronic amylase elevation from pancreatic insufficiency, con't to monitor his clinical status. (6) DVT prophylaxis Current Visit: Yes Status: Acute Lovenox sq daily. Subjective Principal diagnosis: Acute on chronic respiratory failure Interval history: This is a 71 years old male with a history of COPD and alcohol abuse who presented to ER with chief complaint of progressively worsening of shortness of breath and patient was intubated in the ER and subsequently sent to ICU for further management. Patient seen and examined. No acute events overnight, patient failed CPAP breathing trial this morning again due to autonomic instability, patient is now back on Precedex and fentanyl IV sedation. Objective PUL Vital signs: Last Vital Signs Temp 97.8 F 01/26/17 07:10 Pulse 96 01/26/17 08:00 Resp 14 01/26/17 08:00 BP 125/69 01/26/17 08:00 Pulse Ox 100 01/26/17 08:00 General appearance: no acute distress, other (IV sedation) Eyes: nonicteric ENT: oropharynx moist Neck: supple Effort: normal Auscultation: bilateral: diminished breath sounds (base) Cardiovascular: regular rate and rhythm Gastrointestinal: normoactive bowel sounds, soft, non-distended Integumentary: other (healing second degree burn on right fingers, dressing is on) Musculoskeletal: no deformities pupils equal and round, other (IV sedation) Ventilator Settings Ventilator Settings: Ventilator Settings, Last 8 Hours Ventilator Mode VC+ Ventilator Mode VC+ Ventilator Mode VC+ Ventilator Mode VC+ Ventilator Mode VC+ Ventilator Mode VC+ Ventilator Mode VC+ Ventilator Mode VC+ Ventilator Mode VC+ Ventilator Mode VC+ Ventilator Mode VC+ Ventilator Mode VC+ Ventilator Tidal Volume 500 Setting Ventilator Tidal Volume 500 Setting Ventilator Tidal Volume 500 Setting Ventilator Tidal Volume 500 Setting Ventilator Tidal Volume 500 Setting Ventilator Tidal Volume 500 Setting Ventilator Tidal Volume 500 Setting Ventilator Tidal Volume 500 Setting Ventilator Tidal Volume 500 Setting Ventilator Tidal Volume 500 Setting Ventilator Tidal Volume 500 Setting Ventilator Tidal Volume 500 Setting Ventilator Tidal Volume 500 Setting Ventilator Respiratory Rate 14 Setting Ventilator Respiratory Rate 14 Setting Ventilator Respiratory Rate 14 Setting Ventilator Respiratory Rate 14 Setting Ventilator Respiratory Rate 12 Setting Ventilator Respiratory Rate 12 Setting Ventilator Respiratory Rate 12 Setting Ventilator Respiratory Rate 12 Setting Ventilator Respiratory Rate 12 Setting Ventilator Respiratory Rate 12 Setting Ventilator Respiratory Rate 12 Setting Ventilator Respiratory Rate 12 Setting Ventilator Respiratory Rate 12 Setting Actual Respiratory Rate 14 Actual Respiratory Rate 14 Actual Respiratory Rate 14 Actual Respiratory Rate 12 Actual Respiratory Rate 12 Actual Respiratory Rate 12 Positive End Expiratory 5 Pressure Positive End Expiratory 5 Pressure Positive End Expiratory 5 Pressure Positive End Expiratory 5 Pressure Positive End Expiratory 5 Pressure Positive End Expiratory 5 Pressure Positive End Expiratory 5 Pressure Positive End Expiratory 5 Pressure Positive End Expiratory 5 Pressure Positive End Expiratory 5 Pressure Positive End Expiratory 5 Pressure Positive End Expiratory 5 Pressure Positive End Expiratory 5 Pressure Peak Inspiratory Airway 26 Pressure Peak Inspiratory Airway 26 Pressure Peak Inspiratory Airway 25 Pressure Peak Inspiratory Airway 28 Pressure Peak Inspiratory Airway 26 Pressure Peak Inspiratory Airway 23 Pressure Results - Laboratory Findings CBC and BMP: 01/26/17 04:22 01/26/17 04:22 ABG ABG pH 7.35 pH Units (7.32-7.45) 01/26/17 05:28 ABG pCO2 80 mmHg (35-45) H* 01/26/17 05:28 ABG pO2 73 mmHg (85-104) L 01/26/17 05:28 ABG O2 Saturation 94 % (95-98) L 01/26/17 05:28 PT/INR, D-dimer PT 10.6 Seconds (9.4-12.1) 01/22/17 19:49 Abnormal lab findings: Abnormal lab results RBC 4.07 M/mcL (4.19-5.50) L 01/26/17 04:22 Hgb 10.8 g/dL (12.9-16.9) L 01/26/17 04:22 Hct 36.2 % (37.5-50.1) L 01/26/17 04:22 MCH 26.5 pg (28.0-33.3) L 01/26/17 04:22 MCHC 29.8 g/dL (31.6-35.5) L 01/26/17 04:22 RDW 15.9 % (11.5-14.5) H 01/26/17 04:22 Lymphocytes # 0.5 K/mcL (0.6-4.6) L 01/26/17 04:22 ABG pCO2 80 mmHg (35-45) H* 01/26/17 05:28 ABG pO2 73 mmHg (85-104) L 01/26/17 05:28 ABG HCO3 44.2 mEQ/L (21-27) H 01/26/17 05:28 ABG Total CO2 46.7 mEq/L (20-26) H 01/26/17 05:28 ABG O2 Saturation 94 % (95-98) L 01/26/17 05:28 ABG Base Excess 15.5 mEq/L (-2.0 to 3.0) H 01/26/17 05:28 Carbon Dioxide 39 mEq/L (19-29) H 01/26/17 04:22 BUN 30 mg/dL (8-26) H 01/26/17 04:22 BUN/Creatinine Ratio 40 (6-26) H 01/26/17 04:22 Glucose 177 mg/dL (70-99) H 01/26/17 04:22 POC Glucose 149 (58-89) H 01/26/17 06:08 Calculated Osmolality 311 (280-300) H 01/26/17 04:22 Ammonia 75 mcmol/L (18-72) H 01/22/17 20:33 Serum Total Protein 5.8 g/dL (6.0-8.3) L 01/23/17 00:30 Albumin 2.4 g/dL (3.5-5.0) L 01/23/17 00:30 Albumin/Globulin Ratio 0.7 (1.1-2.2) L 01/23/17 00:30 HDL Cholesterol 60 mg/dL (40-59) H 01/23/17 04:00 Amylase 211 Units/L (25-125) H 01/23/17 00:30 Lipase 6 Units/L (8-78) L 01/23/17 00:30 Urine Clarity Cloudy (Clear) A 01/22/17 20:00 Urine Protein 100 mg/dL (Neg-Trace) H 01/22/17 20:00 Urine Blood Small (Negative) H 01/22/17 20:00 Urine Microscopic RBC 3-5 per hpf (0-3) H 01/22/17 20:00 Urine Microscopic WBC 3-5 per hpf (0-3) H 01/22/17 20:00 Ur Squamous Epith Cells Many per lpf (None-Few) H 01/22/17 20:00 - Microbiology Findings Microbiology Findings: Microbiology, Last 48 Hours 01/23/17 08:15 Sputum Culture - Final Sputum Serratia marcescens - Clinical Findings Intake & Output: Intake & Output 01/25/17 01/26/17 01/26/17 23:59 07:59 15:59 Intake Total 724 / 724 648.7 / 648.7 Output Total 500 / 500 750 / 750 Balance 224 / 224 -101.3 / -101.3 Weight 68.1 kg Consult Discharge Plan - Plan Referrals: NO,PCP [Primary Care Provider] - <Tevin Burns M - Last Filed: 01/26/17 23:17> Date of Encounter: 01/26/17 Objective PUL Vital signs: Last Vital Signs Temp 98.3 F 01/26/17 16:21 Pulse 101 01/26/17 15:00 Resp 14 01/26/17 16:15 BP 139/71 01/26/17 16:15 Pulse Ox 97 01/26/17 16:15 Ventilator Settings Ventilator Settings: Ventilator Settings, Last 8 Hours Ventilator Mode VC+ Ventilator Mode VC+ Ventilator Mode VC+ Ventilator Mode VC+ Ventilator Mode VC+ Ventilator Mode VC+ Ventilator Mode VC+ Ventilator Tidal Volume 500 Setting Ventilator Tidal Volume 500 Setting Ventilator Tidal Volume 500 Setting Ventilator Tidal Volume 500 Setting Ventilator Tidal Volume 500 Setting Ventilator Tidal Volume 500 Setting Ventilator Tidal Volume 500 Setting Ventilator Respiratory Rate 14 Setting Ventilator Respiratory Rate 14 Setting Ventilator Respiratory Rate 14 Setting Ventilator Respiratory Rate 14 Setting Ventilator Respiratory Rate 14 Setting Ventilator Respiratory Rate 14 Setting Ventilator Respiratory Rate 14 Setting Actual Respiratory Rate 14 Actual Respiratory Rate 14 Actual Respiratory Rate 14 Actual Respiratory Rate 14 Actual Respiratory Rate 14 Actual Respiratory Rate 14 Actual Respiratory Rate 14 Positive End Expiratory 5 Pressure Positive End Expiratory 5 Pressure Positive End Expiratory 5 Pressure Positive End Expiratory 5 Pressure Positive End Expiratory 5 Pressure Positive End Expiratory 5 Pressure Positive End Expiratory 5 Pressure Peak Inspiratory Airway 27 Pressure Peak Inspiratory Airway 27 Pressure Peak Inspiratory Airway 27 Pressure Peak Inspiratory Airway 27 Pressure Peak Inspiratory Airway 27 Pressure Peak Inspiratory Airway 26 Pressure Peak Inspiratory Airway 26 Pressure Results - Laboratory Findings CBC and BMP: 01/26/17 04:22 01/26/17 04:22 ABG ABG pH 7.35 pH Units (7.32-7.45) 01/26/17 05:28 ABG pCO2 80 mmHg (35-45) H* 01/26/17 05:28 ABG pO2 73 mmHg (85-104) L 01/26/17 05:28 ABG O2 Saturation 94 % (95-98) L 01/26/17 05:28 PT/INR, D-dimer PT 10.6 Seconds (9.4-12.1) 01/22/17 19:49 Abnormal lab findings: Abnormal lab results RBC 4.07 M/mcL (4.19-5.50) L 01/26/17 04:22 Hgb 10.8 g/dL (12.9-16.9) L 01/26/17 04:22 Hct 36.2 % (37.5-50.1) L 01/26/17 04:22 MCH 26.5 pg (28.0-33.3) L 01/26/17 04:22 MCHC 29.8 g/dL (31.6-35.5) L 01/26/17 04:22 RDW 15.9 % (11.5-14.5) H 01/26/17 04:22 Lymphocytes # 0.5 K/mcL (0.6-4.6) L 01/26/17 04:22 ABG pCO2 80 mmHg (35-45) H* 01/26/17 05:28 ABG pO2 73 mmHg (85-104) L 01/26/17 05:28 ABG HCO3 44.2 mEQ/L (21-27) H 01/26/17 05:28 ABG Total CO2 46.7 mEq/L (20-26) H 01/26/17 05:28 ABG O2 Saturation 94 % (95-98) L 01/26/17 05:28 ABG Base Excess 15.5 mEq/L (-2.0 to 3.0) H 01/26/17 05:28 Carbon Dioxide 39 mEq/L (19-29) H 01/26/17 04:22 BUN 30 mg/dL (8-26) H 01/26/17 04:22 BUN/Creatinine Ratio 40 (6-26) H 01/26/17 04:22 Glucose 177 mg/dL (70-99) H 01/26/17 04:22 POC Glucose 163 (58-89) H 01/26/17 11:35 Calculated Osmolality 311 (280-300) H 01/26/17 04:22 Ammonia 75 mcmol/L (18-72) H 01/22/17 20:33 Serum Total Protein 5.8 g/dL (6.0-8.3) L 01/23/17 00:30 Albumin 2.4 g/dL (3.5-5.0) L 01/23/17 00:30 Albumin/Globulin Ratio 0.7 (1.1-2.2) L 01/23/17 00:30 HDL Cholesterol 60 mg/dL (40-59) H 01/23/17 04:00 Amylase 211 Units/L (25-125) H 01/23/17 00:30 Lipase 6 Units/L (8-78) L 01/23/17 00:30 Urine Clarity Cloudy (Clear) A 01/22/17 20:00 Urine Protein 100 mg/dL (Neg-Trace) H 01/22/17 20:00 Urine Blood Small (Negative) H 01/22/17 20:00 Urine Microscopic RBC 3-5 per hpf (0-3) H 01/22/17 20:00 Urine Microscopic WBC 3-5 per hpf (0-3) H 01/22/17 20:00 Ur Squamous Epith Cells Many per lpf (None-Few) H 01/22/17 20:00 - Microbiology Findings Microbiology Findings: Microbiology, Last 48 Hours 01/23/17 08:15 Sputum Culture - Final Sputum Serratia marcescens - Clinical Findings Intake & Output: Intake & Output 01/26/17 01/26/17 01/26/17 07:59 15:59 23:59 Intake Total 648.7 / 648.7 1353.3 / 1353.3 Output Total 750 / 750 300 / 300 400 / 400 Balance -101.3 / -101.3 1053.3 / 1053.3 -400 / -400 Weight 68.1 kg - Attending Attestation I examined this patient and my medical decision-making was reviewed with the STORE ASSISTANT/PA/Advanced Practice Nurse/Resident Physician. I agree with the documented findings, disposition and treatment plan as described except to the extent set forth below. Patient seen and examined. Labs, radiology, chart personally reviewed. Agree with resident's history and physical, assessment, plan with following comments: [employer]: Patient doesn't follows commands and easily agitated off the sedation, I suspect this has an important role to prolong his hospitalization as well has duration of mechanical ventilation. Appreciate palliative care help, I don't expect he will come off ventilator easily and family is aware of that. Pulmonary: Acceptable oxygenation and ventilation Cardiovascular: stable GI: Nutrition per dietary and GI prophylaxis per routine Heme: DVT prophylaxis per routine ID: Continue antibiotics and plan to de-escalation Renal; urine out put and renal funtion reviewed Endorcine: blood glucose is monitored Lines: all lines checked and no evidence of infections Skin: skin care to prevent pressure ulcers per nursing routine care
[2017-01-26] MEDS: Budesonide/Formoterol 160/4.5 MDI IH SCH ×2 (11:30→19:51)
--- NOTE | 2017-01-26 14:35 | Palliative - Consult Note ---
Date of Encounter: 01/26/17 Time of Encounter: 14:30 - Assessment and Plan (1) Generalized pain Current Visit: Yes Status: Acute Assessment and plan: Continues on IV Fentanyl per ICU protocol. Monitor (2) Agitation Current Visit: Yes Status: Acute Assessment and plan: Currently on Precedex infusion. On CIWA protocol as well with Lorazepam IVP PRN. Monitor (3) Counseling regarding advanced care planning and goals of care Current Visit: Yes Status: Acute Assessment and plan: Met with sonJay, who is up from [facility]. Other son, Stefano, who resides with patient, had to leave hospital temporarily. Jay states as far as he knows, pt does not have medical POA in place. States that he discusses pt situation with brother, but most decisions would be left to him. Patient has long time girlfriend of 16 years that reside with him, as well as Stefano. Jay states pt typically independent, but lives a very sedentary lifestyle and continues to abuse tobacco and alcohol. Believes some of his behaviors and life choices stem from some PTSD. He does follow at the OR. He has been noncompliant and signed himself out of this hospital. Discussed goals of care with Jay. He states that he desires pt to remain a full code at this time, as he believes that is his father's previously known wish. Son tearful during discussion. He states that if he would unable to be successfully extubated, that his father would not want trach/terminal operator life support/or to be institutionalized. He desires to continue aggressive management at this point. SonJay has to return to [place] Sunday, but may be back mid-week. If his father still on vent at that time and not improving, would rediscuss goals of care and code status. Will continue to follow and provide support to family and follow clinical progress. (4) COPD exacerbation Current Visit: No Status: Resolved (5) Acute respiratory failure Current Visit: Yes Status: Acute Qualifiers: Respiratory failure complication: unspecified whether with hypoxia or hypercapnia Qualified Code(s): J96.00 - Acute respiratory failure, unspecified whether with hypoxia or hypercapnia Palliative-CN HPI - Data of Consult Consult date: 01/26/17 Requesting Physician: Crispin Mtz MD Primary Care Provider: PCP NO - Consult Narrative History of present illness: Mr. Guardado is a 71 year old male with a history of COPD, GERD, CAD, Cirrhosis, and other co-morbid conditions presented with increased shortness of breath. Patient is treated at [facility], though unknown at this time his service connection. He was intubated and has been under the care of ICU since admission. He has history of ETOH and tobacco abuse. He remains on ventilator and attempts for CPAP trial to date have been unsuccessful with agitation and tachycardia. Continues treatment for COPD exacerbation. Son Jay from [facility] is at bedside providing limited history. States pt was admitted with same scenario few months back and was successfully extubated to bipap, and eventually signed himself out of the hospital. He lives with his girlfriend, and other son, Stefano also resides with the patient. He describes patient as fairly sedentary, and states he continues to smoke and consume alcohol. States "stubborn and non compliant with taking care of himself". Patient remains sedated on ventilator. Does occasionally raises his eyebrows and moves slightly when spoken too. Appears comfortable and in no acute distress. Vitals are stable at this time. CC: Crispin Mtz MD Past Med Surg Social Fam HX - Past Medical History Medical history: arthritis (History of gout.), cirrhosis, COPD (Chronic medical pulmonary disease with hypoxia and hypercapnia. Dependent on supplemental oxygen. Cachexia associated with chronic pulmonary disease.), coronary artery disease, GERD, hepatitis (History of hepatitis C.), hyperlipidemia, hypertension , liver disease, myocardial infarction, peripheral artery disease, renal disease , other (Hyperuricemia. Alcoholism. Chronic pain syndrome. Atopic dermatitis. Erectile dysfunction.) Psychiatric history: anxiety, other - Past Surgical History Surgical History: angioplasty/stent, other - Social History Smoking Status: Current some day smoker Smokeless Tobacco Status: No Alcohol use: occasionally, recent Drug use: none - Family History Mother History Unknown: Yes Father History Unknown: Yes Medications and Allergies Albuterol Sulfate [Albuterol Inhaler] 2 puff IH Q6HR PRN 11/10/16 [History] Allopurinol [Zyloprim] 100 mg PO DAILY 11/10/16 [History] Atorvastatin Calcium [Lipitor] 40 mg PO HS 11/10/16 [History] Docusate Sodium [Dok] 100 mg PO BID PRN 11/10/16 [History] Furosemide [Lasix] 40 mg PO DAILY 11/10/16 [History] Guaifenesin [Mucus Relief] 400 mg PO BID PRN 11/10/16 [History] Ipratropium/Albuterol Neb [Duoneb] 3 ml IH Q6HR PRN 11/10/16 [History] Isosorbide MONOnitrate (24 HR) [Imdur] 30 mg PO DAILY 11/10/16 [History] LORazepam [Ativan] 0.5 mg PO BID 11/10/16 [History] Melatonin 3 mg PO HS 11/10/16 [History] Methocarbamol [Robaxin-750] 750 mg PO QID PRN 11/10/16 [History] Naproxen [Naprosyn] 500 mg PO BID PRN 11/10/16 [History] Omeprazole [PriLOSEC] 20 mg PO DAILY 11/10/16 [History] Polyvinyl Alcohol [Artificial Tears] 1 drop BOTH EYES QID 11/10/16 [History] Ranitidine HCl [Acid Inking Machine Tender] 150 mg PO BID 11/10/16 [History] Triamcinolone Acet 0.1% CRM [Kenalog] 1 appl TP TID 11/10/16 [History] Acetaminophen [Tylenol] 1,000 mg PO BID PRN 01/22/17 [History] Multivitamin [Multi-Day Vitamins] 1 each PO DAILY 01/22/17 [History] Olodaterol HCl [Striverdi Respimat] 2 puff IH DAILY 01/22/17 [History] Silver Sulfadiazine Cream [Silvadene] 1 appl TP DAILY 01/22/17 [History] Simethicone [Gas-X] 80 mg PO TID PRN 01/22/17 [History] Theophylline Anhydrous [Jose-24] 300 mg PO BID 01/22/17 [History] Allergies acetaminophen [From Vicodin] Allergy (Verified 11/10/16 06:00) See Comments Unknown Allergy hydrocodone [From Vicodin] Allergy (Verified 11/10/16 06:00) See Comments Unknown Allergy moxifloxacin Allergy (Verified 11/10/16 06:00) See Comments Unknown Allergy ROS unobtainable: due to endotracheal tube Palliative Care-Exam - Constitutional Vitals: Temp Pulse Resp BP Pulse Ox 98.3 F 92 14 136/71 98 01/26/17 12:15 01/26/17 14:00 01/26/17 14:00 01/26/17 14:00 01/26/17 14:00 General appearance: Present: no acute distress - Head Head Exam: Present: normal inspection, normocephalic - Eye Eye exam: Present: normal appearance, PERRL - Respiratory Additional comments: Breath sounds course with faint expiratory wheezed throughout anterior chest - Cardiovascular Cardiovascular exam: Present: +S1, +S2 - GI/Abdominal Exam GI/Abdominal exam: Present: diminished bowel sounds, soft - Catheter Type: Urethral (Oseguera) Additional comments: Oseguera with yellow urine - Extremities Exam Additional comments: Right hand wrapped, dressing D/I - Neurological Exam Additional comments: Sedated and on ventilator - Skin Skin exam: Present: dry, warm Internal Medicine - CN: Reslt - Labs CBC & Chem 7: 01/26/17 04:22 01/26/17 04:22 Labs: Short CBC 01/26/17 Range/Units 04:22 WBC 7.1 (4.3-11.1) K/mcL Hgb 10.8 L (12.9-16.9) g/dL Hct 36.2 L (37.5-50.1) % Plt Count 221 (140-400) K/mcL Neutrophils # 5.5 (1.6-8.9) K/mcL BMP 01/26/17 04:22 Sodium 145 Potassium 4.3 Chloride 102 Carbon Dioxide 39 H BUN 30 H Creatinine 0.75 Glucose 177 H Calcium 9.0 - ABG Interpretation ABG results: ABG ABG pH 7.35 pH Units (7.32-7.45) 01/26/17 05:28 ABG pCO2 80 mmHg (35-45) H* 01/26/17 05:28 ABG pO2 73 mmHg (85-104) L 01/26/17 05:28 ABG O2 Saturation 94 % (95-98) L 01/26/17 05:28 PT/INR, D-dimer PT 10.6 Seconds (9.4-12.1) 01/22/17 19:49 Consult Discharge Plan - Plan Referrals: NO,PCP [Primary Care Provider] - Palliative Quality Palliative Quality: Screen for Code Status: Yes, Screen for Goals of Care: Yes, Screen for Pain: Yes, If Pain Regimen Started, Initiate Bowel Regimen: NA, Screen for Nausea/Vomitting: NA
[2017-01-27] MEDS: *HR* Midazolam HCl 2 MG/2 ML VIAL IVP PRN ×4 (00:20→12:33)
[2017-01-27] MEDS: FentaNYL (PF) 3,000 MCG in 0.9 % Sodium Chloride 240 ML IVC SCH ×2 (01:53→17:11)
[2017-01-27] MEDS: *HR* LORazepam 2 MG/ML VIAL IVP PRN ×3 (02:24→13:38)
[2017-01-27] MEDS: Levalbuterol Neb 1.25 MG/3 ML IH SCH ×6 (03:57→23:44)
[2017-01-27] MEDS: Ipratropium Neb 0.5 MG NEBULIZER IH SCH ×6 (03:57→23:44)
[2017-01-27 04:34] LABS: BUN/Creatinine Ratio 35 (6-26); Blood Urea Nitrogen 24 mg/dL (8-26); Calcium 9.1 mg/dL (8.6-10.8); Carbon Dioxide 39 mEq/L (19-29); Chloride 104 mEq/L (98-109); Glucose 161 mg/dL (70-99); Osmolality,Calculated 310 (280-300); Potassium 4.3 mEq/L (3.5-4.5); Sodium 146 mEq/L (136-145); eGFR For African Americans > 60 (> 60); eGFR For Non-African Americans > 60 (> 60)
[2017-01-27] MEDS: *HR* Enoxaparin 40 MG/0.4 ML SYRINGE SQ SCH (04:44)
[2017-01-27] MEDS: Dexmedetomidine HCl 400 MCG/100 ML MLS IVC PRN ×2 (04:45→11:35)
[2017-01-27] MEDS: Lacri-Lube 3.5 GM TUBE BOTH EYES SCH ×6 (04:45→23:59)
[2017-01-27 05:02] LABS: ABG Base Excess 17.3 mEq/L (-2.0 to 3.0); ABG HCO3 45.6 mEQ/L (21-27); ABG Oxygen Saturation 92 % (95-98); ABG PH 7.38 pH Units (7.32-7.45); ABG PO2 64 mmHg (85-104)
[2017-01-27 05:10] LABS: Blood Gas FiO2 40 %
[2017-01-27 05:11] LABS: ABG PCO2 77 mmHg (35-45)
--- NOTE | 2017-01-27 07:14 | Pulmonology Progress Note ---
<Gamaliel Lopez - Last Filed: 01/27/17 10:11> Date of Encounter: 01/27/17 Time of Encounter: 07:14 Assessment and Plan (1) Acute on chronic respiratory failure with hypoxia and hypercapnia Current Visit: Yes Status: Acute Patient failed CPAP breathing trial again this a.m., with history of alcohol abuse, it might be difficult to extubate with alcohol withdraw/autonomic instability but we will try over the weekend again, he has a history of intubation in the previous admission, this time is also likely secondary to acute exacerbation of COPD, chest x-ray showed blunting of bilateral costophrenic angle compatible with small bilateral pleural effusions and previously described consolidation in the right lower lobe resolved. We will continue to treat his underlying COPD exacerbation with Symbicort, DuoNeb, IV steroid, antibiotic, and oxygen support through mechanical ventilation. I spoke to patient's family members at the bedside yesterday, patient's previous wish was that he does not want to have a trach done in case he needs one, palliative is on board, his son will come back next week to decide goal of care if pt is still on mechanical vent. (2) Acute exacerbation of chronic obstructive pulmonary disease Current Visit: Yes Status: Acute Repeated ABG showed improvement after he was intubated on mechanical ventilation , will continue current COPD regimen of Symbicort, DuoNeb, po steroid, and antibiotic. (3) Hypernatremia Current Visit: Yes Status: Acute His sodium increased to 146 today, with his tube feeding, will increase free water amount, recheck level in AM. (4) Alcohol abuse Current Visit: Yes Status: Acute Hx of alcohol abuse, when we tried cpap trial, he was having autonomic instability with tachycardia, therefore he was put back on sedation, will con't CIWA protocol, ativan prn and daily rally pack. (5) Leukocytosis Current Visit: Yes Status: Acute Resolved. Chest x-ray showed resolved previously shown right lower lobe consolidation, when he was admitted he was started on broad-spectrum antibiotics with vancomycin, Zosyn and Levaquin for possible underlying questionable hospital-acquired pneumonia, strep pneumo urinary antigen was positive but this was positive two months ago, sputum culture came back serratia marcescens, sensitive to levaquin, this time chest x-ray does not suggest pneumonia, clinically does not look infected, blood cultures are negative, stopped vanco/zosyn few days ago, con't levaquin as COPD regimen. Qualifiers: Qualified Code(s): D72.829 - Elevated white blood cell count, unspecified (6) Elevated amylase Current Visit: Yes Status: Acute Hx of alcohol abuse and current daily drinker, and possible chronic amylase elevation from pancreatic insufficiency, con't to monitor his clinical status. (7) DVT prophylaxis Current Visit: Yes Status: Acute Lovenox sq daily. Subjective Principal diagnosis: Acute on chronic respiratory failure Interval history: This is a 71 years old male with a history of COPD and alcohol abuse who presented to ER with chief complaint of progressively worsening of shortness of breath and patient was intubated in the ER and subsequently sent to ICU for further management. Patient seen and examined. No acute events overnight, patient failed CPAP breathing trial this morning again due to autonomic instability, patient is now back on Precedex and fentanyl IV sedation. Objective PUL Vital signs: Last Vital Signs Temp 98.4 F 01/27/17 04:22 Pulse 91 01/27/17 06:00 Resp 14 01/27/17 06:00 BP 102/59 01/27/17 06:00 Pulse Ox 95 01/27/17 06:00 General appearance: no acute distress, other (on iv sedation) Eyes: nonicteric ENT: oropharynx moist Neck: supple Auscultation: bilateral: diminished breath sounds (base) Cardiovascular: regular rate and rhythm Gastrointestinal: normoactive bowel sounds, soft, non-distended Integumentary: other (healing second degree burn on right fingers, dressing is on) Extremities: no cyanosis Musculoskeletal: no deformities pupils equal and round Ventilator Settings Ventilator Settings: Ventilator Settings, Last 8 Hours Ventilator Mode VC+ Ventilator Mode VC+ Ventilator Mode VC+ Ventilator Mode VC+ Ventilator Mode VC+ Ventilator Mode VC+ Ventilator Mode VC+ Ventilator Mode VC+ Ventilator Mode VC+ Ventilator Mode VC+ Ventilator Mode VC+ Ventilator Mode VC+ Ventilator Tidal Volume 500 Setting Ventilator Tidal Volume 500 Setting Ventilator Tidal Volume 500 Setting Ventilator Tidal Volume 500 Setting Ventilator Tidal Volume 500 Setting Ventilator Tidal Volume 500 Setting Ventilator Tidal Volume 500 Setting Ventilator Tidal Volume 500 Setting Ventilator Tidal Volume 500 Setting Ventilator Tidal Volume 500 Setting Ventilator Tidal Volume 500 Setting Ventilator Tidal Volume 500 Setting Ventilator Respiratory Rate 14 Setting Ventilator Respiratory Rate 14 Setting Ventilator Respiratory Rate 14 Setting Ventilator Respiratory Rate 14 Setting Ventilator Respiratory Rate 14 Setting Ventilator Respiratory Rate 14 Setting Ventilator Respiratory Rate 14 Setting Ventilator Respiratory Rate 14 Setting Ventilator Respiratory Rate 14 Setting Ventilator Respiratory Rate 14 Setting Ventilator Respiratory Rate 14 Setting Ventilator Respiratory Rate 14 Setting Actual Respiratory Rate 14 Actual Respiratory Rate 14 Actual Respiratory Rate 14 Actual Respiratory Rate 14 Positive End Expiratory 5 Pressure Positive End Expiratory 5 Pressure Positive End Expiratory 5 Pressure Positive End Expiratory 5 Pressure Positive End Expiratory 5 Pressure Positive End Expiratory 5 Pressure Positive End Expiratory 5 Pressure Positive End Expiratory 5 Pressure Positive End Expiratory 5 Pressure Positive End Expiratory 5 Pressure Positive End Expiratory 5 Pressure Positive End Expiratory 5 Pressure Peak Inspiratory Airway 27 Pressure Peak Inspiratory Airway 29 Pressure Peak Inspiratory Airway 29 Pressure Peak Inspiratory Airway 28 Pressure Results - Laboratory Findings CBC and BMP: 01/26/17 04:22 01/27/17 04:17 ABG ABG pH 7.38 pH Units (7.32-7.45) 01/27/17 04:50 ABG pCO2 77 mmHg (35-45) H* 01/27/17 04:50 ABG pO2 64 mmHg (85-104) L 01/27/17 04:50 ABG O2 Saturation 92 % (95-98) L 01/27/17 04:50 PT/INR, D-dimer PT 10.6 Seconds (9.4-12.1) 01/22/17 19:49 Abnormal lab findings: Abnormal lab results RBC 4.07 M/mcL (4.19-5.50) L 01/26/17 04:22 Hgb 10.8 g/dL (12.9-16.9) L 01/26/17 04:22 Hct 36.2 % (37.5-50.1) L 01/26/17 04:22 MCH 26.5 pg (28.0-33.3) L 01/26/17 04:22 MCHC 29.8 g/dL (31.6-35.5) L 01/26/17 04:22 RDW 15.9 % (11.5-14.5) H 01/26/17 04:22 Lymphocytes # 0.5 K/mcL (0.6-4.6) L 01/26/17 04:22 ABG pCO2 77 mmHg (35-45) H* 01/27/17 04:50 ABG pO2 64 mmHg (85-104) L 01/27/17 04:50 ABG HCO3 45.6 mEQ/L (21-27) H 01/27/17 04:50 ABG Total CO2 48.0 mEq/L (20-26) H 01/27/17 04:50 ABG O2 Saturation 92 % (95-98) L 01/27/17 04:50 ABG Base Excess 17.3 mEq/L (-2.0 to 3.0) H 01/27/17 04:50 Sodium 146 mEq/L (136-145) H 01/27/17 04:17 Carbon Dioxide 39 mEq/L (19-29) H 01/27/17 04:17 Creatinine 0.68 mg/dL (0.72-1.25) L 01/27/17 04:17 BUN/Creatinine Ratio 35 (6-26) H 01/27/17 04:17 Glucose 161 mg/dL (70-99) H 01/27/17 04:17 POC Glucose 113 (58-89) H 01/26/17 23:40 Calculated Osmolality 310 (280-300) H 01/27/17 04:17 Ammonia 75 mcmol/L (18-72) H 01/22/17 20:33 Serum Total Protein 5.8 g/dL (6.0-8.3) L 01/23/17 00:30 Albumin 2.4 g/dL (3.5-5.0) L 01/23/17 00:30 Albumin/Globulin Ratio 0.7 (1.1-2.2) L 01/23/17 00:30 HDL Cholesterol 60 mg/dL (40-59) H 01/23/17 04:00 Amylase 211 Units/L (25-125) H 01/23/17 00:30 Lipase 6 Units/L (8-78) L 01/23/17 00:30 Urine Clarity Cloudy (Clear) A 01/22/17 20:00 Urine Protein 100 mg/dL (Neg-Trace) H 01/22/17 20:00 Urine Blood Small (Negative) H 01/22/17 20:00 Urine Microscopic RBC 3-5 per hpf (0-3) H 01/22/17 20:00 Urine Microscopic WBC 3-5 per hpf (0-3) H 01/22/17 20:00 Ur Squamous Epith Cells Many per lpf (None-Few) H 01/22/17 20:00 - Microbiology Findings Microbiology Findings: Microbiology, Last 48 Hours 01/23/17 08:15 Sputum Culture - Final Sputum Serratia marcescens - Clinical Findings Intake & Output: Intake & Output 01/26/17 01/26/17 01/27/17 15:59 23:59 07:59 Intake Total 1353.3 / 1353.3 547 / 547 589 / 589 Output Total 300 / 300 1225 / 1225 300 / 300 Balance 1053.3 / 1053.3 -678 / -678 289 / 289 Weight 67.4 kg Consult Discharge Plan - Plan Referrals: NO,PCP [Primary Care Provider] - <Tevin Burns - Last Filed: 01/27/17 11:17> Date of Encounter: 01/27/17 Objective PUL Vital signs: Last Vital Signs Temp 98.4 F 01/27/17 08:14 Pulse 82 01/27/17 10:30 Resp 14 01/27/17 10:30 BP 129/73 01/27/17 10:30 Pulse Ox 96 01/27/17 10:30 Ventilator Settings Ventilator Settings: Ventilator Settings, Last 8 Hours Ventilator Mode VC+ Ventilator Mode VC+ Ventilator Mode VC+ Ventilator Mode VC+ Ventilator Mode VC+ Ventilator Mode VC+ Ventilator Mode VC+ Ventilator Mode VC+ Ventilator Tidal Volume 500 Setting Ventilator Tidal Volume 500 Setting Ventilator Tidal Volume 500 Setting Ventilator Tidal Volume 500 Setting Ventilator Tidal Volume 500 Setting Ventilator Tidal Volume 500 Setting Ventilator Tidal Volume 500 Setting Ventilator Tidal Volume 500 Setting Ventilator Respiratory Rate 14 Setting Ventilator Respiratory Rate 14 Setting Ventilator Respiratory Rate 14 Setting Ventilator Respiratory Rate 14 Setting Ventilator Respiratory Rate 14 Setting Ventilator Respiratory Rate 14 Setting Ventilator Respiratory Rate 14 Setting Ventilator Respiratory Rate 14 Setting Actual Respiratory Rate 14 Actual Respiratory Rate 14 Actual Respiratory Rate 14 Actual Respiratory Rate 14 Positive End Expiratory 5 Pressure Positive End Expiratory 5 Pressure Positive End Expiratory 5 Pressure Positive End Expiratory 5 Pressure Positive End Expiratory 5 Pressure Positive End Expiratory 5 Pressure Positive End Expiratory 5 Pressure Positive End Expiratory 5 Pressure Peak Inspiratory Airway 27 Pressure Peak Inspiratory Airway 28 Pressure Peak Inspiratory Airway 27 Pressure Peak Inspiratory Airway 28 Pressure Peak Inspiratory Airway 27 Pressure Peak Inspiratory Airway 29 Pressure Results - Laboratory Findings CBC and BMP: 01/26/17 04:22 01/27/17 04:17 ABG ABG pH 7.38 pH Units (7.32-7.45) 01/27/17 04:50 ABG pCO2 77 mmHg (35-45) H* 01/27/17 04:50 ABG pO2 64 mmHg (85-104) L 01/27/17 04:50 ABG O2 Saturation 92 % (95-98) L 01/27/17 04:50 PT/INR, D-dimer PT 10.6 Seconds (9.4-12.1) 01/22/17 19:49 Abnormal lab findings: Abnormal lab results RBC 4.07 M/mcL (4.19-5.50) L 01/26/17 04:22 Hgb 10.8 g/dL (12.9-16.9) L 01/26/17 04:22 Hct 36.2 % (37.5-50.1) L 01/26/17 04:22 MCH 26.5 pg (28.0-33.3) L 01/26/17 04:22 MCHC 29.8 g/dL (31.6-35.5) L 01/26/17 04:22 RDW 15.9 % (11.5-14.5) H 01/26/17 04:22 Lymphocytes # 0.5 K/mcL (0.6-4.6) L 01/26/17 04:22 ABG pCO2 77 mmHg (35-45) H* 01/27/17 04:50 ABG pO2 64 mmHg (85-104) L 01/27/17 04:50 ABG HCO3 45.6 mEQ/L (21-27) H 01/27/17 04:50 ABG Total CO2 48.0 mEq/L (20-26) H 01/27/17 04:50 ABG O2 Saturation 92 % (95-98) L 01/27/17 04:50 ABG Base Excess 17.3 mEq/L (-2.0 to 3.0) H 01/27/17 04:50 Sodium 146 mEq/L (136-145) H 01/27/17 04:17 Carbon Dioxide 39 mEq/L (19-29) H 01/27/17 04:17 Creatinine 0.68 mg/dL (0.72-1.25) L 01/27/17 04:17 BUN/Creatinine Ratio 35 (6-26) H 01/27/17 04:17 Glucose 161 mg/dL (70-99) H 01/27/17 04:17 POC Glucose 113 (58-89) H 01/26/17 23:40 Calculated Osmolality 310 (280-300) H 01/27/17 04:17 Ammonia 75 mcmol/L (18-72) H 01/22/17 20:33 Serum Total Protein 5.8 g/dL (6.0-8.3) L 01/23/17 00:30 Albumin 2.4 g/dL (3.5-5.0) L 01/23/17 00:30 Albumin/Globulin Ratio 0.7 (1.1-2.2) L 01/23/17 00:30 HDL Cholesterol 60 mg/dL (40-59) H 01/23/17 04:00 Amylase 211 Units/L (25-125) H 01/23/17 00:30 Lipase 6 Units/L (8-78) L 01/23/17 00:30 Urine Clarity Cloudy (Clear) A 01/22/17 20:00 Urine Protein 100 mg/dL (Neg-Trace) H 01/22/17 20:00 Urine Blood Small (Negative) H 01/22/17 20:00 Urine Microscopic RBC 3-5 per hpf (0-3) H 01/22/17 20:00 Urine Microscopic WBC 3-5 per hpf (0-3) H 01/22/17 20:00 Ur Squamous Epith Cells Many per lpf (None-Few) H 01/22/17 20:00 - Microbiology Findings Microbiology Findings: Microbiology, Last 48 Hours 01/23/17 08:15 Sputum Culture - Final Sputum Serratia marcescens - Clinical Findings Intake & Output: Intake & Output 01/26/17 01/27/17 01/27/17 23:59 07:59 15:59 Intake Total 547 / 547 589 / 589 Output Total 1225 / 1225 300 / 300 200 / 200 Balance -678 / -678 289 / 289 -200 / -200 Weight 67.4 kg - Attending Attestation I examined this patient and my medical decision-making was reviewed with the COLLEGE AND CAREER COUNSELOR/PA/Advanced Practice Nurse/Resident Physician. I agree with the documented findings, disposition and treatment plan as described except to the extent set forth below. Patient seen and examined. Labs, radiology, chart personally reviewed. 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 Patient is not tolerating CPAP trial Cardiovascular: stable GI: Nutrition per dietary and GI prophylaxis per routine Heme: DVT prophylaxis per routine ID: Continue antibiotics and plan to de-escalation Renal; urine out put and renal funtion reviewed Endorcine: blood glucose is monitored Lines: all lines checked and no evidence of infections Skin: skin care to prevent pressure ulcers per nursing routine care Overall prognosis is poor from pulmonary standpoint.
[2017-01-27] MEDS: Budesonide/Formoterol 160/4.5 MDI IH SCH ×2 (07:37→19:54)
[2017-01-27] MEDS: Nystatin SUSP 5 ML UD.LIQ PO SCH ×4 (10:05→20:29)
[2017-01-27] MEDS: predniSONE 20 MG TABLET PO SCH (10:05)
[2017-01-27] MEDS: Chlorhexidine Rinse 15 ML MOUTHWASH MM SCH ×2 (10:05→20:28)
[2017-01-27] MEDS: Docusate Oral Soln 100 MG/10 ML UDC GTUBE SCH ×2 (10:05→20:29)
[2017-01-27] MEDS: Levofloxacin 750 MG/150 ML 750 MG/150 ML BAG IVPB SCH (10:06)
[2017-01-27] MEDS: Thiamine (B-1) 100 MG TABLET PO SCH (10:06)
[2017-01-27] MEDS: Folic Acid 1 MG TABLET PO SCH (10:06)
[2017-01-27] MEDS: Vitamin B Complex/Vit C/Vit E 1 EACH TABLET PO SCH (10:06)
[2017-01-27] MEDS: Pantoprazole 40 MG VIAL IVP SCH (10:09)
[2017-01-27] MEDS: Silver Sulfadiazine 50 GM TUBE TP SCH (10:09)
[2017-01-28] MEDS: Ipratropium Neb 0.5 MG NEBULIZER IH SCH ×5 (03:28→20:34)
[2017-01-28] MEDS: Levalbuterol Neb 1.25 MG/3 ML IH SCH ×5 (03:28→20:34)
[2017-01-28 03:59] LABS: Eosinophils # 0.1 K/mcL (0.0-0.6); Hematocrit 32.9 % (37.5-50.1); Immature Granulocytes % 0.4 % (0-4); Lymphocytes # 1.2 K/mcL (0.6-4.6); Lymphocytes % 15.2 %; Mean Corpuscular HGB Conc 30.4 g/dL (31.6-35.5); Mean Corpuscular Hemoglobin 27.3 pg (28.0-33.3); Mean Corpuscular Volume 89.9 fL (83.0-100.0); Mean Platelet Volume 9.8 fL (9.4-12.4); Neutrophils # 5.7 K/mcL (1.6-8.9); Platelet Count 157 K/mcL (140-400); Red Blood Count 3.66 M/mcL (4.19-5.50); Red Cell Distribution Width 16.2 % (11.5-14.5); Segmented Neutrophils % 70.4 %
[2017-01-28 04:16] LABS: BUN/Creatinine Ratio 32 (6-26); Blood Urea Nitrogen 20 mg/dL (8-26); Chloride 102 mEq/L (98-109); Glucose 124 mg/dL (70-99); Osmolality,Calculated 300 (280-300); Potassium 4.3 mEq/L (3.5-4.5); Sodium 143 mEq/L (136-145); eGFR For African Americans > 60 (> 60); eGFR For Non-African Americans > 60 (> 60)
[2017-01-28 04:20] LABS: Carbon Dioxide 40 mEq/L (19-29)
[2017-01-28] MEDS: Lacri-Lube 3.5 GM TUBE BOTH EYES SCH ×3 (04:43→12:23)
[2017-01-28] MEDS: *HR* Enoxaparin 40 MG/0.4 ML SYRINGE SQ SCH (04:46)
[2017-01-28 04:48] LABS: ABG Base Excess 18.6 mEq/L (-2.0 to 3.0); ABG HCO3 45.2 mEQ/L (21-27); ABG Oxygen Saturation 97 % (95-98); ABG PCO2 65 mmHg (35-45); ABG PH 7.45 pH Units (7.32-7.45); ABG PO2 91 mmHg (85-104); ABG TCO2 47.2 mEq/L (20-26); Blood Gas FiO2 40 %; Blood Gas PEEP 5 cm H2O; Blood Gas Respiration Rate 14; Blood Gas VT 500 cc
--- NOTE | 2017-01-28 05:54 | Pulmonology Progress Note ---
<Gamaliel Lopez - Last Filed: 01/28/17 13:07> Date of Encounter: 01/28/17 Time of Encounter: 05:54 Assessment and Plan (1) Acute on chronic respiratory failure with hypoxia and hypercapnia Current Visit: Yes Status: Acute Patient was successfully extubated this morning, satting 95% on 3 L of nasal cannula, spoke to patient's son at the bedside, if patient's respiratory status deteriorates again, they want patient to be reintubated. Acute on chronic respiratory failure likely secondary to acute exacerbation of COPD, chest x-ray showed blunting of bilateral costophrenic angle compatible with small bilateral pleural effusions and previously described consolidation in the right lower lobe resolved. We will continue to treat his underlying COPD exacerbation with Symbicort, DuoNeb, IV steroid, antibiotic, and oxygen support. (2) Acute exacerbation of chronic obstructive pulmonary disease Current Visit: Yes Status: Acute Will continue current COPD regimen of Symbicort, DuoNeb, po steroid, and antibiotic. (3) Hematuria Current Visit: Yes Status: Acute This developed just this morning, likely secondary to traumatic Oseguera, will consult urology, bleeding stopped, hemodynamically stable and check hemoglobin in the morning. (4) Alcohol abuse Current Visit: Yes Status: Acute Hx of alcohol abuse, will con't CIWA protocol, ativan prn and daily rally pack. (5) Elevated amylase Current Visit: Yes Status: Acute Hx of alcohol abuse and current daily drinker, and possible chronic amylase elevation from pancreatic insufficiency, con't to monitor his clinical status. (6) DVT prophylaxis Current Visit: Yes Status: Acute Lovenox sq daily. Subjective Principal diagnosis: Acute on chronic respiratory failure Interval history: This is a 71 years old male with a history of COPD and alcohol abuse who presented to ER with chief complaint of progressively worsening of shortness of breath and patient was intubated in the ER and subsequently sent to ICU for further management. Patient seen and examined. No acute events overnight, patient was successfully extubated this morning, satting 92% on 3 L nasal cannula. Objective PUL Vital signs: Last Vital Signs Temp 98.3 F 01/28/17 03:39 Pulse 101 01/28/17 04:30 Resp 14 01/28/17 04:30 BP 115/57 01/28/17 04:30 Pulse Ox 99 01/28/17 04:30 General appearance: no acute distress, alert Eyes: nonicteric ENT: oropharynx moist Neck: supple Auscultation: bilateral: diminished breath sounds (at base) Cardiovascular: regular rate and rhythm Gastrointestinal: normoactive bowel sounds, soft, non-tender, non-distended Integumentary: other (healing second degree burn on right fingers, dressing is on) Extremities: no cyanosis, no edema, no clubbing Musculoskeletal: no deformities non-focal exam, pupils equal and round, CN II-XII normal mood appropriate, affect normal Ventilator Settings Ventilator Settings: Ventilator Settings, Last 8 Hours Ventilator Mode VC+ Ventilator Mode VC+ Ventilator Mode VC+ Ventilator Mode VC+ Ventilator Mode VC+ Ventilator Mode VC+ Ventilator Mode VC+ Ventilator Mode VC+ Ventilator Mode VC+ Ventilator Mode VC+ Ventilator Mode VC+ Ventilator Tidal Volume 500 Setting Ventilator Tidal Volume 500 Setting Ventilator Tidal Volume 500 Setting Ventilator Tidal Volume 500 Setting Ventilator Tidal Volume 500 Setting Ventilator Tidal Volume 500 Setting Ventilator Tidal Volume 500 Setting Ventilator Tidal Volume 500 Setting Ventilator Tidal Volume 500 Setting Ventilator Tidal Volume 500 Setting Ventilator Tidal Volume 500 Setting Ventilator Respiratory Rate 14 Setting Ventilator Respiratory Rate 14 Setting Ventilator Respiratory Rate 14 Setting Ventilator Respiratory Rate 14 Setting Ventilator Respiratory Rate 14 Setting Ventilator Respiratory Rate 14 Setting Ventilator Respiratory Rate 14 Setting Ventilator Respiratory Rate 14 Setting Ventilator Respiratory Rate 14 Setting Ventilator Respiratory Rate 14 Setting Ventilator Respiratory Rate 14 Setting Actual Respiratory Rate 14 Actual Respiratory Rate 14 Actual Respiratory Rate 14 Positive End Expiratory 5 Pressure Positive End Expiratory 5 Pressure Positive End Expiratory 5 Pressure Positive End Expiratory 5 Pressure Positive End Expiratory 5 Pressure Positive End Expiratory 5 Pressure Positive End Expiratory 5 Pressure Positive End Expiratory 5 Pressure Positive End Expiratory 5 Pressure Positive End Expiratory 5 Pressure Positive End Expiratory 5 Pressure Peak Inspiratory Airway 28 Pressure Peak Inspiratory Airway 25 Pressure Peak Inspiratory Airway 30 Pressure Results - Laboratory Findings CBC and BMP: 01/28/17 03:50 01/28/17 03:50 ABG ABG pH 7.45 pH Units (7.32-7.45) 01/28/17 04:40 ABG pCO2 65 mmHg (35-45) H 01/28/17 04:40 ABG pO2 91 mmHg (85-104) 01/28/17 04:40 ABG O2 Saturation 97 % (95-98) 01/28/17 04:40 PT/INR, D-dimer PT 10.6 Seconds (9.4-12.1) 01/22/17 19:49 Abnormal lab findings: Abnormal lab results RBC 3.66 M/mcL (4.19-5.50) L 01/28/17 03:50 Hgb 10.0 g/dL (12.9-16.9) L 01/28/17 03:50 Hct 32.9 % (37.5-50.1) L 01/28/17 03:50 MCH 27.3 pg (28.0-33.3) L 01/28/17 03:50 MCHC 30.4 g/dL (31.6-35.5) L 01/28/17 03:50 RDW 16.2 % (11.5-14.5) H 01/28/17 03:50 ABG pCO2 65 mmHg (35-45) H 01/28/17 04:40 ABG HCO3 45.2 mEQ/L (21-27) H 01/28/17 04:40 ABG Total CO2 47.2 mEq/L (20-26) H 01/28/17 04:40 ABG Base Excess 18.6 mEq/L (-2.0 to 3.0) H 01/28/17 04:40 Carbon Dioxide 40 mEq/L (19-29) H* 01/28/17 03:50 Creatinine 0.62 mg/dL (0.72-1.25) L 01/28/17 03:50 BUN/Creatinine Ratio 32 (6-26) H 01/28/17 03:50 Glucose 124 mg/dL (70-99) H 01/28/17 03:50 POC Glucose 96 (58-89) H 01/28/17 05:32 Ammonia 75 mcmol/L (18-72) H 01/22/17 20:33 Serum Total Protein 5.8 g/dL (6.0-8.3) L 01/23/17 00:30 Albumin 2.4 g/dL (3.5-5.0) L 01/23/17 00:30 Albumin/Globulin Ratio 0.7 (1.1-2.2) L 01/23/17 00:30 HDL Cholesterol 60 mg/dL (40-59) H 01/23/17 04:00 Amylase 211 Units/L (25-125) H 01/23/17 00:30 Lipase 6 Units/L (8-78) L 01/23/17 00:30 Urine Clarity Cloudy (Clear) A 01/22/17 20:00 Urine Protein 100 mg/dL (Neg-Trace) H 01/22/17 20:00 Urine Blood Small (Negative) H 01/22/17 20:00 Urine Microscopic RBC 3-5 per hpf (0-3) H 01/22/17 20:00 Urine Microscopic WBC 3-5 per hpf (0-3) H 01/22/17 20:00 Ur Squamous Epith Cells Many per lpf (None-Few) H 01/22/17 20:00 - Microbiology Findings Microbiology Findings: Microbiology, Last 48 Hours 01/23/17 08:15 Sputum Culture - Final Sputum Serratia marcescens - Clinical Findings Intake & Output: Intake & Output 01/27/17 01/27/17 01/28/17 15:59 23:59 07:59 Intake Total 750 / 750 2136 / 2136 299 / 299 Output Total 325 / 325 1050 / 1050 375 / 375 Balance 425 / 425 1086 / 1086 -76 / -76 Weight 70.4 kg Consult Discharge Plan - Plan Referrals: NO,PCP [Primary Care Provider] - <Tevin Burns - Last Filed: 01/28/17 19:49> Date of Encounter: 01/28/17 Objective PUL Vital signs: Last Vital Signs Temp 98.0 F 01/28/17 07:43 Pulse 113 01/28/17 09:40 Resp 28 01/28/17 09:40 BP 142/73 01/28/17 09:40 Pulse Ox 90 01/28/17 09:40 Ventilator Settings Ventilator Settings: Ventilator Settings, Last 8 Hours Ventilator Mode CPAP Ventilator Mode VC+ Ventilator Mode VC+ Ventilator Mode CPAP Ventilator Mode VC+ Ventilator Mode VC+ Ventilator Mode VC+ Ventilator Mode VC+ Ventilator Mode VC+ Ventilator Mode VC+ Ventilator Mode VC+ Ventilator Tidal Volume 450 Setting Ventilator Tidal Volume 500 Setting Ventilator Tidal Volume 500 Setting Ventilator Tidal Volume 500 Setting Ventilator Tidal Volume 500 Setting Ventilator Tidal Volume 500 Setting Ventilator Tidal Volume 500 Setting Ventilator Tidal Volume 500 Setting Ventilator Tidal Volume 500 Setting Ventilator Respiratory Rate 14 Setting Ventilator Respiratory Rate 14 Setting Ventilator Respiratory Rate 14 Setting Ventilator Respiratory Rate 14 Setting Ventilator Respiratory Rate 14 Setting Ventilator Respiratory Rate 14 Setting Ventilator Respiratory Rate 14 Setting Actual Respiratory Rate 14 Actual Respiratory Rate 17 Actual Respiratory Rate 17 Actual Respiratory Rate 14 Positive End Expiratory 5 Pressure Positive End Expiratory 5 Pressure Positive End Expiratory 5 Pressure Positive End Expiratory 5 Pressure Positive End Expiratory 5 Pressure Positive End Expiratory 5 Pressure Positive End Expiratory 5 Pressure Positive End Expiratory 5 Pressure Positive End Expiratory 5 Pressure Positive End Expiratory 5 Pressure Positive End Expiratory 5 Pressure Peak Inspiratory Airway 15 Pressure Peak Inspiratory Airway 16 Pressure Peak Inspiratory Airway 16 Pressure Peak Inspiratory Airway 16 Pressure Peak Inspiratory Airway 28 Pressure Results - Laboratory Findings CBC and BMP: 01/28/17 03:50 01/28/17 03:50 ABG ABG pH 7.45 pH Units (7.32-7.45) 01/28/17 04:40 ABG pCO2 65 mmHg (35-45) H 01/28/17 04:40 ABG pO2 91 mmHg (85-104) 01/28/17 04:40 ABG O2 Saturation 97 % (95-98) 01/28/17 04:40 PT/INR, D-dimer PT 10.6 Seconds (9.4-12.1) 01/22/17 19:49 Abnormal lab findings: Abnormal lab results RBC 3.66 M/mcL (4.19-5.50) L 01/28/17 03:50 Hgb 10.0 g/dL (12.9-16.9) L 01/28/17 03:50 Hct 32.9 % (37.5-50.1) L 01/28/17 03:50 MCH 27.3 pg (28.0-33.3) L 01/28/17 03:50 MCHC 30.4 g/dL (31.6-35.5) L 01/28/17 03:50 RDW 16.2 % (11.5-14.5) H 01/28/17 03:50 ABG pCO2 65 mmHg (35-45) H 01/28/17 04:40 ABG HCO3 45.2 mEQ/L (21-27) H 01/28/17 04:40 ABG Total CO2 47.2 mEq/L (20-26) H 01/28/17 04:40 ABG Base Excess 18.6 mEq/L (-2.0 to 3.0) H 01/28/17 04:40 Carbon Dioxide 40 mEq/L (19-29) H* 01/28/17 03:50 Creatinine 0.62 mg/dL (0.72-1.25) L 01/28/17 03:50 BUN/Creatinine Ratio 32 (6-26) H 01/28/17 03:50 Glucose 124 mg/dL (70-99) H 01/28/17 03:50 POC Glucose 96 (58-89) H 01/28/17 05:32 Ammonia 75 mcmol/L (18-72) H 01/22/17 20:33 Serum Total Protein 5.8 g/dL (6.0-8.3) L 01/23/17 00:30 Albumin 2.4 g/dL (3.5-5.0) L 01/23/17 00:30 Albumin/Globulin Ratio 0.7 (1.1-2.2) L 01/23/17 00:30 HDL Cholesterol 60 mg/dL (40-59) H 01/23/17 04:00 Amylase 211 Units/L (25-125) H 01/23/17 00:30 Lipase 6 Units/L (8-78) L 01/23/17 00:30 Urine Clarity Cloudy (Clear) A 01/22/17 20:00 Urine Protein 100 mg/dL (Neg-Trace) H 01/22/17 20:00 Urine Blood Small (Negative) H 01/22/17 20:00 Urine Microscopic RBC 3-5 per hpf (0-3) H 01/22/17 20:00 Urine Microscopic WBC 3-5 per hpf (0-3) H 01/22/17 20:00 Ur Squamous Epith Cells Many per lpf (None-Few) H 01/22/17 20:00 - Clinical Findings Intake & Output: Intake & Output 01/27/17 01/28/17 01/28/17 23:59 07:59 15:59 Intake Total 2136 / 2136 620 / 620 Output Total 1050 / 1050 525 / 525 Balance 1086 / 1086 95 / 95 Weight 70.4 kg - Attending Attestation I examined this patient and my medical decision-making was reviewed with the MANAGER CHINESE/PA/Advanced Practice Nurse/Resident Physician. I agree with the documented findings, disposition and treatment plan as described except to the extent set forth below. Patient seen and examined. Labs, radiology, chart personally reviewed. Agree with resident's history and physical, assessment, plan with following comments: DIESEL ENGINE TESTER: Patient follows commands, Pulmonary: Acceptable oxygenation and ventilation and he tolerated spontaneous breathing trial, then patient was successfully extubated. Discussed with the son at the bedside and the decision if his condition deteriorate then family wish to be reintubated. when he is extubated this can be as patient himself. Palliative care is also seeing the patient. Cardiovascular: stable GI: Nutrition per dietary and GI prophylaxis per routine Heme: DVT prophylaxis per routine ID: Continue antibiotic and plan to de-escalation Renal; urine out put and renal funtion reviewed. Consulted urology due to hematuria from trauma from Oseguera's catheter. Endorcine: blood glucose is monitored Lines: all lines checked and no evidence of infections Skin: skin care to prevent pressure ulcers per nursing routine care Overall prognosis is poor from his underlying lung disease and continued to smoke tobacco..
[2017-01-28] MEDS: Budesonide/Formoterol 160/4.5 MDI IH SCH ×2 (07:47→20:34)
[2017-01-28] MEDS: *HR* LORazepam 2 MG/ML VIAL IVP PRN ×6 (08:19→23:11)
[2017-01-28] MEDS: Nystatin SUSP 5 ML UD.LIQ PO SCH ×4 (08:21→21:22)
[2017-01-28] MEDS: Vitamin B Complex/Vit C/Vit E 1 EACH TABLET PO SCH (08:21)
[2017-01-28] MEDS: Pantoprazole 40 MG VIAL IVP SCH (08:21)
[2017-01-28] MEDS: predniSONE 20 MG TABLET PO SCH (08:21)
[2017-01-28] MEDS: Folic Acid 1 MG TABLET PO SCH (08:22)
[2017-01-28] MEDS: Chlorhexidine Rinse 15 ML MOUTHWASH MM SCH ×2 (08:22→21:22)
[2017-01-28] MEDS: Thiamine (B-1) 100 MG TABLET PO SCH (08:22)
[2017-01-28] MEDS: Docusate Oral Soln 100 MG/10 ML UDC GTUBE SCH ×2 (08:22→21:23)
[2017-01-28] MEDS: Levofloxacin 750 MG/150 ML 750 MG/150 ML BAG IVPB SCH (08:22)
[2017-01-28] MEDS: Silver Sulfadiazine 50 GM TUBE TP SCH (08:23)
[2017-01-28] MEDS ORDERED: *HR* Metoprolol 5 MG/5 ML VIAL IVP ONE (14:22)
[2017-01-28] MEDS ORDERED: *HR* HYDROmorphone (PF) 1 MG/ML SYRINGE IVP ONE (20:59)
[2017-01-28] MEDS: Dexmedetomidine HCl 400 MCG/100 ML MLS IVC SCH (22:30)
[2017-01-29] MEDS: *HR* LORazepam 2 MG/ML VIAL IVP PRN ×4 (00:31→23:15)
[2017-01-29] MEDS: Levalbuterol Neb 1.25 MG/3 ML IH SCH ×6 (00:44→20:19)
[2017-01-29] MEDS: Ipratropium Neb 0.5 MG NEBULIZER IH SCH ×6 (00:44→20:19)
[2017-01-29] MEDS: *HR* Enoxaparin 40 MG/0.4 ML SYRINGE SQ SCH (04:16)
[2017-01-29] MEDS: Dexmedetomidine HCl 400 MCG/100 ML MLS IVC SCH ×3 (04:22→23:14)
[2017-01-29 04:24] LABS: Eosinophils # 0.1 K/mcL (0.0-0.6); Eosinophils % 1.9 %; Hematocrit 32.4 % (37.5-50.1); Hemoglobin 10.2 g/dL (12.9-16.9); Immature Granulocytes % 0.4 % (0-4); Lymphocytes # 1.6 K/mcL (0.6-4.6); Lymphocytes % 21.2 %; Mean Corpuscular HGB Conc 31.5 g/dL (31.6-35.5); Mean Corpuscular Hemoglobin 28.3 pg (28.0-33.3); Mean Corpuscular Volume 89.8 fL (83.0-100.0); Mean Platelet Volume 11.3 fL (9.4-12.4); Monocytes # 0.9 K/mcL (0.0-1.3); Neutrophils # 4.7 K/mcL (1.6-8.9); Platelet Count 178 K/mcL (140-400); Red Blood Count 3.61 M/mcL (4.19-5.50); Red Cell Distribution Width 15.9 % (11.5-14.5); Segmented Neutrophils % 64.5 %
[2017-01-29 04:40] LABS: BUN/Creatinine Ratio 30 (6-26); Blood Urea Nitrogen 18 mg/dL (8-26); Calcium 9.1 mg/dL (8.6-10.8); Carbon Dioxide 39 mEq/L (19-29); Chloride 97 mEq/L (98-109); Glucose 87 mg/dL (70-99); Osmolality,Calculated 295 (280-300); Potassium 3.8 mEq/L (3.5-4.5); Sodium 142 mEq/L (136-145); eGFR For African Americans > 60 (> 60); eGFR For Non-African Americans > 60 (> 60)
--- NOTE | 2017-01-29 07:10 | Urology - Consult Note ---
Date of Encounter: 01/29/17 Time of Encounter: 07:08 - Assessment and Plan (1) Hematuria Current Visit: Yes Status: Acute Assessment and plan: Urine is clear today. Continue catheter as needed. Call with any questions. No active bleeding noted. Urology CN:DANELLE Consult date: 01/29/17 Reason for consult Urology: Gross Hematuria Requesting physician: Tevin Burns History of present illness: 71 year old man admitted to the ICU was extubated yesterday and pulled on his catheter. He had some bleeding around his catheter and his urine was somewhat bloody. Today his urine has been clear and he has had minimal blood around his terry. He is somnolent today. Past Med Surg Social Fam HX - Past Medical History Medical history: arthritis (History of gout.), cirrhosis, COPD (Chronic medical pulmonary disease with hypoxia and hypercapnia. Dependent on supplemental oxygen. Cachexia associated with chronic pulmonary disease.), coronary artery disease, GERD, hepatitis (History of hepatitis C.), hyperlipidemia, hypertension , liver disease, myocardial infarction, peripheral artery disease, renal disease , other (Hyperuricemia. Alcoholism. Chronic pain syndrome. Atopic dermatitis. Erectile dysfunction.) Psychiatric history: anxiety, other - Past Surgical History Surgical History: angioplasty/stent, other - Social History Smoking Status: Current some day smoker Smokeless Tobacco Status: No Alcohol use: occasionally, recent Drug use: none - Family History Mother History Unknown: Yes Father History Unknown: Yes Medications and Allergies Albuterol Sulfate [Albuterol Inhaler] 2 puff IH Q6HR PRN 11/10/16 [History] Allopurinol [Zyloprim] 100 mg PO DAILY 11/10/16 [History] Atorvastatin Calcium [Lipitor] 40 mg PO HS 11/10/16 [History] Docusate Sodium [Dok] 100 mg PO BID PRN 11/10/16 [History] Furosemide [Lasix] 40 mg PO DAILY 11/10/16 [History] Guaifenesin [Mucus Relief] 400 mg PO BID PRN 11/10/16 [History] Ipratropium/Albuterol Neb [Duoneb] 3 ml IH Q6HR PRN 11/10/16 [History] Isosorbide MONOnitrate (24 HR) [Imdur] 30 mg PO DAILY 11/10/16 [History] LORazepam [Ativan] 0.5 mg PO BID 11/10/16 [History] Melatonin 3 mg PO HS 11/10/16 [History] Methocarbamol [Robaxin-750] 750 mg PO QID PRN 11/10/16 [History] Naproxen [Naprosyn] 500 mg PO BID PRN 11/10/16 [History] Omeprazole [PriLOSEC] 20 mg PO DAILY 11/10/16 [History] Polyvinyl Alcohol [Artificial Tears] 1 drop BOTH EYES QID 11/10/16 [History] Ranitidine HCl [Acid [employer]] 150 mg PO BID 11/10/16 [History] Triamcinolone Acet 0.1% CRM [Kenalog] 1 appl TP TID 11/10/16 [History] Acetaminophen [Tylenol] 1,000 mg PO BID PRN 01/22/17 [History] Multivitamin [Multi-Day Vitamins] 1 each PO DAILY 01/22/17 [History] Olodaterol HCl [Striverdi Respimat] 2 puff IH DAILY 01/22/17 [History] Silver Sulfadiazine Cream [Silvadene] 1 appl TP DAILY 01/22/17 [History] Simethicone [Gas-X] 80 mg PO TID PRN 01/22/17 [History] Theophylline Anhydrous [Jose-24] 300 mg PO BID 01/22/17 [History] Allergies acetaminophen [From Vicodin] Allergy (Verified 11/10/16 06:00) See Comments Unknown Allergy hydrocodone [From Vicodin] Allergy (Verified 11/10/16 06:00) See Comments Unknown Allergy moxifloxacin Allergy (Verified 11/10/16 06:00) See Comments Unknown Allergy Review of Systems - Constitutional no chills, no fever(s) - EENT Nose, mouth and throat: no dizziness - Cardiovascular no chest pain - Respiratory no dyspnea - Gastrointestinal no nausea, no vomiting - Genitourinary no flank pain, no hematuria - Musculoskeletal no back pain - Integumentary no erythema, no rash - Neurological no weakness - Psychiatric no suicidal ideation - Hematologic/Lymphatic no easy bleeding - Allergic/Immunologic no wheezing Exam Initial Vital Signs Temp Pulse Resp BP Pulse Ox 97.6 F 118 38 130/85 83 01/22/17 19:33 01/22/17 19:33 01/22/17 19:33 01/22/17 19:33 01/22/17 19:33 - General physical appearance Present: well developed, well nourished, no distress - Eyes Absent: icteric - ENT Present: normal nares - Neck Present: trachea midline - Respiratory Present: normal respiratory effort - Cardiovascular Cardiovascular exam IM: RRR - Abdomen Abdomen: Present: soft - Genitourinary normal penis with no external lesions (catheter present with clear urine. No active bleeding at meatus.) Urology Results - Labs 01/29/17 04:00 01/29/17 04:00 Abnormal lab results RBC 3.61 M/mcL (4.19-5.50) L 01/29/17 04:00 Hgb 10.2 g/dL (12.9-16.9) L 01/29/17 04:00 Hct 32.4 % (37.5-50.1) L 01/29/17 04:00 MCHC 31.5 g/dL (31.6-35.5) L 01/29/17 04:00 RDW 15.9 % (11.5-14.5) H 01/29/17 04:00 ABG pCO2 65 mmHg (35-45) H 01/28/17 04:40 ABG HCO3 45.2 mEQ/L (21-27) H 01/28/17 04:40 ABG Total CO2 47.2 mEq/L (20-26) H 01/28/17 04:40 ABG Base Excess 18.6 mEq/L (-2.0 to 3.0) H 01/28/17 04:40 Chloride 97 mEq/L (98-109) L 01/29/17 04:00 Carbon Dioxide 39 mEq/L (19-29) H 01/29/17 04:00 Creatinine 0.60 mg/dL (0.72-1.25) L 01/29/17 04:00 BUN/Creatinine Ratio 30 (6-26) H 01/29/17 04:00 Ammonia 75 mcmol/L (18-72) H 01/22/17 20:33 Serum Total Protein 5.8 g/dL (6.0-8.3) L 01/23/17 00:30 Albumin 2.4 g/dL (3.5-5.0) L 01/23/17 00:30 Albumin/Globulin Ratio 0.7 (1.1-2.2) L 01/23/17 00:30 HDL Cholesterol 60 mg/dL (40-59) H 01/23/17 04:00 Amylase 211 Units/L (25-125) H 01/23/17 00:30 Lipase 6 Units/L (8-78) L 01/23/17 00:30 Urine Clarity Cloudy (Clear) A 01/22/17 20:00 Urine Protein 100 mg/dL (Neg-Trace) H 01/22/17 20:00 Urine Blood Small (Negative) H 01/22/17 20:00 Urine Microscopic RBC 3-5 per hpf (0-3) H 01/22/17 20:00 Urine Microscopic WBC 3-5 per hpf (0-3) H 01/22/17 20:00 Ur Squamous Epith Cells Many per lpf (None-Few) H 01/22/17 20:00 Diabetes panel 01/29/17 Range/Units 04:00 Sodium 142 (136-145) mEq/L Potassium 3.8 (3.5-4.5) mEq/L Chloride 97 L (98-109) mEq/L Carbon Dioxide 39 H (19-29) mEq/L BUN 18 (8-26) mg/dL Creatinine 0.60 L (0.72-1.25) mg/dL Glucose 87 (70-99) mg/dL Calcium 9.1 (8.6-10.8) mg/dL Calcium panel 01/29/17 Range/Units 04:00 Calcium 9.1 (8.6-10.8) mg/dL Pituitary panel 01/29/17 Range/Units 04:00 Sodium 142 (136-145) mEq/L Potassium 3.8 (3.5-4.5) mEq/L Chloride 97 L (98-109) mEq/L Carbon Dioxide 39 H (19-29) mEq/L BUN 18 (8-26) mg/dL Creatinine 0.60 L (0.72-1.25) mg/dL Glucose 87 (70-99) mg/dL Calcium 9.1 (8.6-10.8) mg/dL Adrenal panel 01/29/17 Range/Units 04:00 Sodium 142 (136-145) mEq/L Potassium 3.8 (3.5-4.5) mEq/L Chloride 97 L (98-109) mEq/L Carbon Dioxide 39 H (19-29) mEq/L BUN 18 (8-26) mg/dL Creatinine 0.60 L (0.72-1.25) mg/dL Glucose 87 (70-99) mg/dL Calcium 9.1 (8.6-10.8) mg/dL All other labs normal. Consult Discharge Plan - Plan Referrals: NO,PCP [Primary Care Provider] -
[2017-01-29] MEDS: Budesonide/Formoterol 160/4.5 MDI IH SCH ×2 (08:12→20:20)
[2017-01-29] MEDS: Pantoprazole 40 MG VIAL IVP SCH (08:36)
[2017-01-29] MEDS: Chlorhexidine Rinse 15 ML MOUTHWASH MM SCH ×2 (08:36→20:13)
[2017-01-29] MEDS: Levofloxacin 750 MG/150 ML 750 MG/150 ML BAG IVPB SCH (08:36)
--- NOTE | 2017-01-29 10:23 | Palliative Progress Note ---
<Claudy Gee - Last Filed: 01/29/17 11:28> Date of Encounter: 01/29/17 Time of Encounter: : - Assessment and plan (1) Acute respiratory failure with hypercapnia Current Visit: Yes Status: Acute Assessment and plan: Pt extubated. On BIPAP with mild distress. Management per primary team. (2) Generalized pain Current Visit: Yes Status: Acute Assessment and plan: Currently controlled. Denies pain. Continue pain control regimen. (3) Counseling regarding advanced care planning and goals of care Current Visit: Yes Status: Acute Assessment and plan: Most current discussion with vineet Thompson. Full Code. Will return Sunday for further discussions. (4) Agitation Current Visit: Yes Status: Acute Assessment and plan: Continued on precedex and CIWA protocol. - Time Spent With Patient Total time spent is greater than 50% in coordination of care (as documented) at patient's floor/unit and/or counseling patient: Greater than 35 minutes - Subjective Interval history: The patient has been extubated to BIPAP with FIO2 of 35%. Pt clinically confused. Responds to questions with shaking his head but is unable to verbally communicate 2/2 Bipap which cannot be removed 2/2 current respiratory distress. The patient denies pain at this time. Vineet Thompson had to return to [place] and will be back Sunday. - Constitutional Vitals: Abnormal lab results RBC 3.61 M/mcL (4.19-5.50) L 01/29/17 04:00 Hgb 10.2 g/dL (12.9-16.9) L 01/29/17 04:00 Hct 32.4 % (37.5-50.1) L 01/29/17 04:00 MCHC 31.5 g/dL (31.6-35.5) L 01/29/17 04:00 RDW 15.9 % (11.5-14.5) H 01/29/17 04:00 ABG pCO2 65 mmHg (35-45) H 01/28/17 04:40 ABG HCO3 45.2 mEQ/L (21-27) H 01/28/17 04:40 ABG Total CO2 47.2 mEq/L (20-26) H 01/28/17 04:40 ABG Base Excess 18.6 mEq/L (-2.0 to 3.0) H 01/28/17 04:40 Chloride 97 mEq/L (98-109) L 01/29/17 04:00 Carbon Dioxide 39 mEq/L (19-29) H 01/29/17 04:00 Creatinine 0.60 mg/dL (0.72-1.25) L 01/29/17 04:00 BUN/Creatinine Ratio 30 (6-26) H 01/29/17 04:00 Ammonia 75 mcmol/L (18-72) H 01/22/17 20:33 Serum Total Protein 5.8 g/dL (6.0-8.3) L 01/23/17 00:30 Albumin 2.4 g/dL (3.5-5.0) L 01/23/17 00:30 Albumin/Globulin Ratio 0.7 (1.1-2.2) L 01/23/17 00:30 HDL Cholesterol 60 mg/dL (40-59) H 01/23/17 04:00 Amylase 211 Units/L (25-125) H 01/23/17 00:30 Lipase 6 Units/L (8-78) L 01/23/17 00:30 Urine Clarity Cloudy (Clear) A 01/22/17 20:00 Urine Protein 100 mg/dL (Neg-Trace) H 01/22/17 20:00 Urine Blood Small (Negative) H 01/22/17 20:00 Urine Microscopic RBC 3-5 per hpf (0-3) H 01/22/17 20:00 Urine Microscopic WBC 3-5 per hpf (0-3) H 01/22/17 20:00 Ur Squamous Epith Cells Many per lpf (None-Few) H 01/22/17 20:00 Exam: Mild respiratory distress; tachypnea; increased work of breathing on BIPAP - Head Head exam: Present: atraumatic, normal inspection - Eye Eye exam: Present: normal appearance. Absent: conjunctival injection Pupils: Present: PERRL - Respiratory Additional comments: Increased work of breathing; diffuse wheezing - Cardiovascular Additional comments: regular rate and rhythm - GI/Abdominal GI/Abdominal exam: Present: soft. Absent: distended, firm, tenderness - Additional comments: terry present - Skin Skin exam: Present: intact, warm. Absent: abrasion, erythema Palliative Quality Palliative Quality: Screen for Code Status: Yes, Screen for Goals of Care: Yes, Screen for Pain: Yes, If Pain Regimen Started, Initiate Bowel Regimen: NA, Screen for Nausea/Vomitting: NA Code Status: 01/28/17 16:07 FULL [Resuscitation Status: Active] [RES] Routine Comment: Resuscitation Status: Full Code - Labs CBC & Chem 7: 01/29/17 04:00 01/29/17 04:00 Labs: Laboratory Results - last 24 hr 01/28/17 01/28/17 01/28/17 11:38 17:19 23:24 WBC RBC Hgb Hct MCV MCH MCHC RDW Plt Count MPV Immature Gran % Seg Neutrophils % Lymphocytes % Monocytes % Eosinophils % Basophils % Neutrophils # Lymphocytes # Monocytes # Eosinophils # Basophils # Sodium Potassium Chloride Carbon Dioxide BUN Creatinine Est GFR ( Amer) Est GFR (Non-Af Amer) BUN/Creatinine Ratio Glucose POC Glucose 104 H 139 H 84 Calculated Osmolality Calcium 01/29/17 01/29/17 04:00 04:00 WBC 7.3 RBC 3.61 L Hgb 10.2 L Hct 32.4 L MCV 89.8 MCH 28.3 MCHC 31.5 L RDW 15.9 H Plt Count 178 MPV 11.3 Immature Gran % 0.4 Seg Neutrophils % 64.5 Lymphocytes % 21.2 Monocytes % 12.0 Eosinophils % 1.9 Basophils % 0.0 Neutrophils # 4.7 Lymphocytes # 1.6 Monocytes # 0.9 Eosinophils # 0.1 Basophils # 0.0 Sodium 142 Potassium 3.8 Chloride 97 L Carbon Dioxide 39 H BUN 18 Creatinine 0.60 L Est GFR ( Amer) > 60 Est GFR (Non-Af Amer) > 60 BUN/Creatinine Ratio 30 H Glucose 87 POC Glucose Calculated Osmolality 295 Calcium 9.1 - ABG Interpretation ABG results: ABG ABG pH 7.45 pH Units (7.32-7.45) 01/28/17 04:40 ABG pCO2 65 mmHg (35-45) H 01/28/17 04:40 ABG pO2 91 mmHg (85-104) 01/28/17 04:40 ABG O2 Saturation 97 % (95-98) 01/28/17 04:40 PT/INR, D-dimer PT 10.6 Seconds (9.4-12.1) 01/22/17 19:49 Consult Discharge Plan - Plan Referrals: NO,PCP [Primary Care Provider] - <aBrry Guidry - Last Filed: 01/29/17 15:42> Date of Encounter: 01/29/17 - Time Spent With Patient Total time spent is greater than 50% in coordination of care (as documented) at patient's floor/unit and/or counseling patient: - Constitutional Vitals: Abnormal lab results RBC 3.61 M/mcL (4.19-5.50) L 01/29/17 04:00 Hgb 10.2 g/dL (12.9-16.9) L 01/29/17 04:00 Hct 32.4 % (37.5-50.1) L 01/29/17 04:00 MCHC 31.5 g/dL (31.6-35.5) L 01/29/17 04:00 RDW 15.9 % (11.5-14.5) H 01/29/17 04:00 ABG pCO2 67 mmHg (35-45) H 01/29/17 13:59 ABG pO2 63 mmHg (85-104) L 01/29/17 13:59 ABG HCO3 40.6 mEQ/L (21-27) H 01/29/17 13:59 ABG Total CO2 42.7 mEq/L (20-26) H 01/29/17 13:59 ABG O2 Saturation 92 % (95-98) L 01/29/17 13:59 ABG Base Excess 13.2 mEq/L (-2.0 to 3.0) H 01/29/17 13:59 Chloride 97 mEq/L (98-109) L 01/29/17 04:00 Carbon Dioxide 39 mEq/L (19-29) H 01/29/17 04:00 Creatinine 0.60 mg/dL (0.72-1.25) L 01/29/17 04:00 BUN/Creatinine Ratio 30 (6-26) H 01/29/17 04:00 POC Glucose 93 (58-89) H 01/29/17 12:20 Ammonia 75 mcmol/L (18-72) H 01/22/17 20:33 Serum Total Protein 5.8 g/dL (6.0-8.3) L 01/23/17 00:30 Albumin 2.4 g/dL (3.5-5.0) L 01/23/17 00:30 Albumin/Globulin Ratio 0.7 (1.1-2.2) L 01/23/17 00:30 HDL Cholesterol 60 mg/dL (40-59) H 01/23/17 04:00 Amylase 211 Units/L (25-125) H 01/23/17 00:30 Lipase 6 Units/L (8-78) L 01/23/17 00:30 Urine Clarity Cloudy (Clear) A 01/22/17 20:00 Urine Protein 100 mg/dL (Neg-Trace) H 01/22/17 20:00 Urine Blood Small (Negative) H 01/22/17 20:00 Urine Microscopic RBC 3-5 per hpf (0-3) H 01/22/17 20:00 Urine Microscopic WBC 3-5 per hpf (0-3) H 01/22/17 20:00 Ur Squamous Epith Cells Many per lpf (None-Few) H 01/22/17 20:00 - Attending Attestation I examined this patient and my medical decision-making was reviewed with the GROUND OPERATIONS SUPERINTENDENT/PA/Advanced Practice Nurse/Resident Physician. I agree with the documented findings, disposition and treatment plan as described except to the extent set forth below. pt more awake and better mental staus but still conflicted about code status, will continue discussion with full family on wed Palliative Quality Code Status: 01/28/17 16:07 FULL [Resuscitation Status: Active] [RES] Routine Comment: Resuscitation Status: Full Code - Labs CBC & Chem 7: 01/29/17 04:00 01/29/17 04:00 Labs: Laboratory Results - last 24 hr 01/28/17 01/28/17 01/29/17 17:19 23:24 04:00 WBC 7.3 RBC 3.61 L Hgb 10.2 L Hct 32.4 L MCV 89.8 MCH 28.3 MCHC 31.5 L RDW 15.9 H Plt Count 178 MPV 11.3 Immature Gran % 0.4 Seg Neutrophils % 64.5 Lymphocytes % 21.2 Monocytes % 12.0 Eosinophils % 1.9 Basophils % 0.0 Neutrophils # 4.7 Lymphocytes # 1.6 Monocytes # 0.9 Eosinophils # 0.1 Basophils # 0.0 ABG pH ABG pCO2 ABG pO2 ABG HCO3 ABG Total CO2 ABG O2 Saturation ABG Base Excess Liter Flow Blood Gas Modality Sodium Potassium Chloride Carbon Dioxide BUN Creatinine Est GFR ( Amer) Est GFR (Non-Af Amer) BUN/Creatinine Ratio Glucose POC Glucose 139 H 84 Calculated Osmolality Calcium 01/29/17 01/29/17 01/29/17 04:00 12:20 13:59 WBC RBC Hgb Hct MCV MCH MCHC RDW Plt Count MPV Immature Gran % Seg Neutrophils % Lymphocytes % Monocytes % Eosinophils % Basophils % Neutrophils # Lymphocytes # Monocytes # Eosinophils # Basophils # ABG pH 7.39 ABG pCO2 67 H ABG pO2 63 L ABG HCO3 40.6 H ABG Total CO2 42.7 H ABG O2 Saturation 92 L ABG Base Excess 13.2 H Liter Flow 3 Blood Gas Modality NC Sodium 142 Potassium 3.8 Chloride 97 L Carbon Dioxide 39 H BUN 18 Creatinine 0.60 L Est GFR ( Amer) > 60 Est GFR (Non-Af Amer) > 60 BUN/Creatinine Ratio 30 H Glucose 87 POC Glucose 93 H Calculated Osmolality 295 Calcium 9.1 - ABG Interpretation ABG results: ABG ABG pH 7.39 pH Units (7.32-7.45) 01/29/17 13:59 ABG pCO2 67 mmHg (35-45) H 01/29/17 13:59 ABG pO2 63 mmHg (85-104) L 01/29/17 13:59 ABG O2 Saturation 92 % (95-98) L 01/29/17 13:59 PT/INR, D-dimer PT 10.6 Seconds (9.4-12.1) 01/22/17 19:49
[2017-01-29] MEDS: Nystatin SUSP 5 ML UD.LIQ PO SCH ×4 (12:42→20:13)
[2017-01-29] MEDS: Nicotine 21 MG PATCH.TD24 TD PRN (12:42)
[2017-01-29] MEDS: Thiamine (B-1) 100 MG TABLET PO SCH (12:43)
[2017-01-29] MEDS: predniSONE 20 MG TABLET PO SCH (12:43)
[2017-01-29] MEDS: Docusate Oral Soln 100 MG/10 ML UDC GTUBE SCH ×2 (12:43→20:13)
[2017-01-29] MEDS: Folic Acid 1 MG TABLET PO SCH (12:43)
[2017-01-29] MEDS: Vitamin B Complex/Vit C/Vit E 1 EACH TABLET PO SCH (12:47)
[2017-01-29 14:03] LABS: ABG Base Excess 13.2 mEq/L (-2.0 to 3.0); ABG HCO3 40.6 mEQ/L (21-27); ABG Oxygen Saturation 92 % (95-98); ABG PCO2 67 mmHg (35-45); ABG PH 7.39 pH Units (7.32-7.45); ABG PO2 63 mmHg (85-104); ABG TCO2 42.7 mEq/L (20-26)
[2017-01-29 14:04] LABS: Blood Gas Liter Flow 3 L/MIN
[2017-01-29] MEDS: Isosorbide MONOnitrate (24 HR) 30 MG TAB.ER.24H PO SCH (15:30)
[2017-01-29] MEDS: Silver Sulfadiazine 50 GM TUBE TP SCH (15:31)
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
[2017-01-29] MEDS ORDERED: Furosemide 20 MG/2 ML VIAL IVP ONE (16:51)
[2017-01-29] MEDS: amLODIPine 5 MG TABLET PO SCH (18:53)
[2017-01-30] MEDS: Ipratropium Neb 0.5 MG NEBULIZER IH SCH ×7 (00:12→23:16)
[2017-01-30] MEDS: Levalbuterol Neb 1.25 MG/3 ML IH SCH ×7 (00:12→23:16)
[2017-01-30] MEDS: *HR* LORazepam 2 MG/ML VIAL IVP PRN (00:27)
[2017-01-30] MEDS: Dexmedetomidine HCl 400 MCG/100 ML MLS IVC SCH (05:18)
[2017-01-30] MEDS: *HR* Enoxaparin 40 MG/0.4 ML SYRINGE SQ SCH (05:18)
[2017-01-30] MEDS: Budesonide/Formoterol 160/4.5 MDI IH SCH ×2 (08:00→19:52)
[2017-01-30] MEDS: Docusate Oral Soln 100 MG/10 ML UDC GTUBE SCH ×2 (08:44→19:40)
[2017-01-30] MEDS: Pantoprazole 40 MG VIAL IVP SCH (08:44)
[2017-01-30] MEDS: Nystatin SUSP 5 ML UD.LIQ PO SCH ×4 (08:44→19:40)
[2017-01-30] MEDS: amLODIPine 5 MG TABLET PO SCH (08:44)
[2017-01-30] MEDS: Chlorhexidine Rinse 15 ML MOUTHWASH MM SCH (08:44)
[2017-01-30] MEDS: Isosorbide MONOnitrate (24 HR) 30 MG TAB.ER.24H PO SCH (08:45)
[2017-01-30] MEDS: Folic Acid 1 MG TABLET PO SCH (08:45)
[2017-01-30] MEDS: Thiamine (B-1) 100 MG TABLET PO SCH (08:45)
[2017-01-30] MEDS: predniSONE 20 MG TABLET PO SCH (08:45)
[2017-01-30] MEDS: Vitamin B Complex/Vit C/Vit E 1 EACH TABLET PO SCH (08:45)
[2017-01-30] MEDS: Levofloxacin 750 MG/150 ML 750 MG/150 ML BAG IVPB SCH (08:45)
--- NOTE | 2017-01-30 10:44 | Palliative Progress Note ---
<Jonathan Harmon - Last Filed: 01/30/17 11:26> Date of Encounter: 01/30/17 Time of Encounter: 09:30 - Assessment and plan (1) Counseling regarding advanced care planning and goals of care Current Visit: Yes Status: Acute Assessment and plan: Currently no one at bedside; Son Jay will be back in town later today or tomorrow from [place] Will keep code status FULL CODE until discussion can be made with son (2) Acute respiratory failure with hypercapnia Current Visit: Yes Status: Acute Assessment and plan: Improved today, currently breathing well on 3.5 L NC Continue breathing treatments per pulmonology - Time Spent With Patient Total time spent is greater than 50% in coordination of care (as documented) at patient's floor/unit and/or counseling patient: - Subjective Interval history: Pt seen and examined. He states his breathing is much better yesterday and he is off the BiPAP on 3.5 L NC. He has no complaints of pain, nausea, vomiting, diarrhea, or constipation. He has not eaten anything today. His son Jay is planning to visit either late tonight or tomorrow. - Constitutional Vitals: Abnormal lab results RBC 3.61 M/mcL (4.19-5.50) L 01/29/17 04:00 Hgb 10.2 g/dL (12.9-16.9) L 01/29/17 04:00 Hct 32.4 % (37.5-50.1) L 01/29/17 04:00 MCHC 31.5 g/dL (31.6-35.5) L 01/29/17 04:00 RDW 15.9 % (11.5-14.5) H 01/29/17 04:00 ABG pCO2 67 mmHg (35-45) H 01/29/17 13:59 ABG pO2 63 mmHg (85-104) L 01/29/17 13:59 ABG HCO3 40.6 mEQ/L (21-27) H 01/29/17 13:59 ABG Total CO2 42.7 mEq/L (20-26) H 01/29/17 13:59 ABG O2 Saturation 92 % (95-98) L 01/29/17 13:59 ABG Base Excess 13.2 mEq/L (-2.0 to 3.0) H 01/29/17 13:59 Chloride 97 mEq/L (98-109) L 01/29/17 04:00 Carbon Dioxide 39 mEq/L (19-29) H 01/29/17 04:00 Creatinine 0.60 mg/dL (0.72-1.25) L 01/29/17 04:00 BUN/Creatinine Ratio 30 (6-26) H 01/29/17 04:00 POC Glucose 140 (58-89) H 01/29/17 23:20 Ammonia 75 mcmol/L (18-72) H 01/22/17 20:33 Serum Total Protein 5.8 g/dL (6.0-8.3) L 01/23/17 00:30 Albumin 2.4 g/dL (3.5-5.0) L 01/23/17 00:30 Albumin/Globulin Ratio 0.7 (1.1-2.2) L 01/23/17 00:30 HDL Cholesterol 60 mg/dL (40-59) H 01/23/17 04:00 Amylase 211 Units/L (25-125) H 01/23/17 00:30 Lipase 6 Units/L (8-78) L 01/23/17 00:30 Urine Clarity Cloudy (Clear) A 01/22/17 20:00 Urine Protein 100 mg/dL (Neg-Trace) H 01/22/17 20:00 Urine Blood Small (Negative) H 01/22/17 20:00 Urine Microscopic RBC 3-5 per hpf (0-3) H 01/22/17 20:00 Urine Microscopic WBC 3-5 per hpf (0-3) H 01/22/17 20:00 Ur Squamous Epith Cells Many per lpf (None-Few) H 01/22/17 20:00 General appearance: Present: cooperative, no acute distress - Head Head exam: Present: atraumatic, normal inspection, normocephalic - Eye Eye exam: Present: EOMI, PERRL - Respiratory Respiratory exam: Present: wheezes. Absent: accessory muscle use, respiratory distress - Cardiovascular Cardiovascular exam: Present: RRR, +S1, +S2 - GI/Abdominal GI/Abdominal exam: Present: soft. Absent: tenderness - Neurological Exam Neurological exam: Present: alert, CN II-XII intact, oriented X3, no focal deficits Palliative Quality Palliative Quality: Screen for Code Status: Yes, Screen for Goals of Care: Yes, Screen for Pain: Yes, If Pain Regimen Started, Initiate Bowel Regimen: NA, Screen for Nausea/Vomitting: NA Code Status: 01/28/17 16:07 FULL [Resuscitation Status: Active] [RES] Routine Comment: Resuscitation Status: Full Code - Labs CBC & Chem 7: 01/29/17 04:00 01/29/17 04:00 Labs: Laboratory Results - last 24 hr 01/29/17 01/29/17 01/29/17 12:20 13:59 23:20 ABG pH 7.39 ABG pCO2 67 H ABG pO2 63 L ABG HCO3 40.6 H ABG Total CO2 42.7 H ABG O2 Saturation 92 L ABG Base Excess 13.2 H Liter Flow 3 Blood Gas Modality NC POC Glucose 93 H 140 H - ABG Interpretation ABG results: ABG ABG pH 7.39 pH Units (7.32-7.45) 01/29/17 13:59 ABG pCO2 67 mmHg (35-45) H 01/29/17 13:59 ABG pO2 63 mmHg (85-104) L 01/29/17 13:59 ABG O2 Saturation 92 % (95-98) L 01/29/17 13:59 PT/INR, D-dimer PT 10.6 Seconds (9.4-12.1) 01/22/17 19:49 Consult Discharge Plan - Plan Referrals: NO,PCP [Primary Care Provider] - <Barry Guidry L - Last Filed: 01/30/17 12:02> Date of Encounter: 01/30/17 - Time Spent With Patient Total time spent is greater than 50% in coordination of care (as documented) at patient's floor/unit and/or counseling patient: - Constitutional Vitals: Abnormal lab results RBC 3.61 M/mcL (4.19-5.50) L 01/29/17 04:00 Hgb 10.2 g/dL (12.9-16.9) L 01/29/17 04:00 Hct 32.4 % (37.5-50.1) L 01/29/17 04:00 MCHC 31.5 g/dL (31.6-35.5) L 01/29/17 04:00 RDW 15.9 % (11.5-14.5) H 01/29/17 04:00 ABG pCO2 67 mmHg (35-45) H 01/29/17 13:59 ABG pO2 63 mmHg (85-104) L 01/29/17 13:59 ABG HCO3 40.6 mEQ/L (21-27) H 01/29/17 13:59 ABG Total CO2 42.7 mEq/L (20-26) H 01/29/17 13:59 ABG O2 Saturation 92 % (95-98) L 01/29/17 13:59 ABG Base Excess 13.2 mEq/L (-2.0 to 3.0) H 01/29/17 13:59 Chloride 97 mEq/L (98-109) L 01/29/17 04:00 Carbon Dioxide 39 mEq/L (19-29) H 01/29/17 04:00 Creatinine 0.60 mg/dL (0.72-1.25) L 01/29/17 04:00 BUN/Creatinine Ratio 30 (6-26) H 01/29/17 04:00 POC Glucose 182 (58-89) H 01/30/17 11:01 Ammonia 75 mcmol/L (18-72) H 01/22/17 20:33 Serum Total Protein 5.8 g/dL (6.0-8.3) L 01/23/17 00:30 Albumin 2.4 g/dL (3.5-5.0) L 01/23/17 00:30 Albumin/Globulin Ratio 0.7 (1.1-2.2) L 01/23/17 00:30 HDL Cholesterol 60 mg/dL (40-59) H 01/23/17 04:00 Amylase 211 Units/L (25-125) H 01/23/17 00:30 Lipase 6 Units/L (8-78) L 01/23/17 00:30 Urine Clarity Cloudy (Clear) A 01/22/17 20:00 Urine Protein 100 mg/dL (Neg-Trace) H 01/22/17 20:00 Urine Blood Small (Negative) H 01/22/17 20:00 Urine Microscopic RBC 3-5 per hpf (0-3) H 01/22/17 20:00 Urine Microscopic WBC 3-5 per hpf (0-3) H 01/22/17 20:00 Ur Squamous Epith Cells Many per lpf (None-Few) H 01/22/17 20:00 - Attending Attestation I examined this patient and my medical decision-making was reviewed with the HEARING STENOGRAPHER/PA/Advanced Practice Nurse/Resident Physician. I agree with the documented findings, disposition and treatment plan as described except to the extent set forth below. Palliative Quality Code Status: 01/28/17 16:07 FULL [Resuscitation Status: Active] [RES] Routine Comment: Resuscitation Status: Full Code - Labs CBC & Chem 7: 01/29/17 04:00 01/29/17 04:00 Labs: Laboratory Results - last 24 hr 01/29/17 01/29/17 01/29/17 12:20 13:59 23:20 ABG pH 7.39 ABG pCO2 67 H ABG pO2 63 L ABG HCO3 40.6 H ABG Total CO2 42.7 H ABG O2 Saturation 92 L ABG Base Excess 13.2 H Liter Flow 3 Blood Gas Modality NC POC Glucose 93 H 140 H 01/30/17 11:01 ABG pH ABG pCO2 ABG pO2 ABG HCO3 ABG Total CO2 ABG O2 Saturation ABG Base Excess Liter Flow Blood Gas Modality POC Glucose 182 H - ABG Interpretation ABG results: ABG ABG pH 7.39 pH Units (7.32-7.45) 01/29/17 13:59 ABG pCO2 67 mmHg (35-45) H 01/29/17 13:59 ABG pO2 63 mmHg (85-104) L 01/29/17 13:59 ABG O2 Saturation 92 % (95-98) L 01/29/17 13:59 PT/INR, D-dimer PT 10.6 Seconds (9.4-12.1) 01/22/17 19:49
[2017-01-30] MEDS ORDERED: predniSONE 20 MG TABLET PO SCH (11:10)
[2017-01-30] MEDS: Silver Sulfadiazine 50 GM TUBE TP SCH (11:23)
[2017-01-30] MEDS: Furosemide 40 MG TABLET PO SCH (11:23)
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
[2017-01-30 14:47] LABS: Eosinophils % 0.1 %; Hematocrit 38.1 % (37.5-50.1); Hemoglobin 11.8 g/dL (12.9-16.9); Immature Granulocytes % 0.5 % (0-4); Lymphocytes # 0.4 K/mcL (0.6-4.6); Lymphocytes % 5.7 %; Mean Corpuscular Hemoglobin 26.6 pg (28.0-33.3); Mean Corpuscular Volume 85.8 fL (83.0-100.0); Mean Platelet Volume 10.5 fL (9.4-12.4); Monocytes # 0.4 K/mcL (0.0-1.3); Monocytes % 4.8 %; Neutrophils # 6.7 K/mcL (1.6-8.9); Platelet Count 262 K/mcL (140-400); Red Blood Count 4.44 M/mcL (4.19-5.50); Red Cell Distribution Width 15.7 % (11.5-14.5); Segmented Neutrophils % 88.9 %
[2017-01-30 14:52] LABS: BUN/Creatinine Ratio 18 (6-26); Blood Urea Nitrogen 13 mg/dL (8-26); Chloride 92 mEq/L (98-109); Glucose 226 mg/dL (70-99); Osmolality,Calculated 303 (280-300); Potassium 3.4 mEq/L (3.5-4.5); Sodium 143 mEq/L (136-145); eGFR For African Americans > 60 (> 60); eGFR For Non-African Americans > 60 (> 60)
[2017-01-30 14:59] LABS: Carbon Dioxide 43 mEq/L (19-29)
[2017-01-30] MEDS: Nicotine 21 MG PATCH.TD24 TD PRN (18:43)
[2017-01-31] MEDS: Levalbuterol Neb 1.25 MG/3 ML IH SCH ×5 (03:47→20:15)
[2017-01-31] MEDS: Ipratropium Neb 0.5 MG NEBULIZER IH SCH ×5 (03:47→20:15)
[2017-01-31 04:42] LABS: Basophils % 0.1 %; Eosinophils # 0.1 K/mcL (0.0-0.6); Eosinophils % 0.6 %; Hematocrit 36.3 % (37.5-50.1); Hemoglobin 11.5 g/dL (12.9-16.9); Immature Granulocytes % 0.5 % (0-4); Lymphocytes # 1.9 K/mcL (0.6-4.6); Lymphocytes % 15.2 %; Mean Corpuscular HGB Conc 31.7 g/dL (31.6-35.5); Mean Corpuscular Hemoglobin 27.5 pg (28.0-33.3); Mean Corpuscular Volume 86.8 fL (83.0-100.0); Mean Platelet Volume 11.2 fL (9.4-12.4); Monocytes # 2.2 K/mcL (0.0-1.3); Monocytes % 17.6 %; Neutrophils # 8.1 K/mcL (1.6-8.9); Platelet Count 296 K/mcL (140-400); Red Blood Count 4.18 M/mcL (4.19-5.50); Red Cell Distribution Width 15.7 % (11.5-14.5)
[2017-01-31 05:01] LABS: BUN/Creatinine Ratio 15 (6-26); Blood Urea Nitrogen 11 mg/dL (8-26); Carbon Dioxide 38 mEq/L (19-29); Chloride 96 mEq/L (98-109); Glucose 161 mg/dL (70-99); Osmolality,Calculated 295 (280-300); Potassium 3.3 mEq/L (3.5-4.5); Sodium 141 mEq/L (136-145); eGFR For African Americans > 60 (> 60); eGFR For Non-African Americans > 60 (> 60)
[2017-01-31] MEDS: *HR* Enoxaparin 40 MG/0.4 ML SYRINGE SQ SCH (05:17)
[2017-01-31] MEDS: Budesonide/Formoterol 160/4.5 MDI IH SCH ×2 (07:40→20:20)
[2017-01-31] MEDS ORDERED: Docusate Oral Soln 100 MG/10 ML UDC PO SCH (08:45)
--- NOTE | 2017-01-31 09:16 | Pulmonology Progress Note ---
Date of Encounter: 01/31/17 Time of Encounter: 07:30 Assessment and Plan (1) Acute on chronic respiratory failure with hypoxia and hypercapnia Current Visit: Yes Status: Acute Extubated 01/28. Per family, if patient has respiratory decompensation, they request re- intubation. Acute on chronic respiratory failure likely secondary to acute exacerbation COPD. CXR Jan: costophrenic angle blunting consistent with small BL pleural effusion with resolution of previous RLL consolidation. Sputum culture: Serratia marcescens Continue tx exacerbation of COPD: Symbicort, DuoNeb, IV steroid, antibiotic, O2 support. Continue BiPap PRN. Continue supplemental O2. Levaquin day 02/28. Plan to transfer to step-down unit today. Patient kept in ICU overnight (i.e. not transfered out) as he became tachycardic and tachypneic and hypoxic while eating. He tolerated breakfast this morning well; safe for transfer today. (2) Acute exacerbation of chronic obstructive pulmonary disease Current Visit: Yes Status: Acute as above (3) Alcohol abuse Current Visit: Yes Status: Chronic Patient is 11 days out from last drink. No DTs. (4) Gout Current Visit: Yes Status: Chronic Continue home dose Allopurinol 100mg PO Qdaily. Qualifiers: Qualified Code(s): M10.9 - Gout, unspecified (5) Hematuria Current Visit: Yes Status: Resolved Resolved. Hb remains stable. (6) DVT prophylaxis Current Visit: No Status: Acute Lovenox SQ Qdaily. Subjective Principal diagnosis: Acute on chronic respiratory failure Interval history: Patient has some respiratory difficulty however he notes his breathing is improving today vs yesterday though he still occasionally needs BiPap. No complaint of left toe pain. He does request food. Objective PUL Vital signs: Last Vital Signs Temp 99.1 F 01/31/17 08:11 Pulse 114 01/31/17 08:39 Resp 27 01/31/17 07:47 BP 159/108 01/31/17 07:47 Pulse Ox 95 01/31/17 07:47 General appearance: no acute distress, alert Eyes: nonicteric ENT: oropharynx moist Neck: supple Effort: normal, mildly labored Auscultation: bilateral: wheezes Cardiovascular: regular rate and rhythm Gastrointestinal: normoactive bowel sounds, soft, non-tender, non-distended Integumentary: normal Extremities: no cyanosis Musculoskeletal: no deformities normal mental status mood appropriate Results - Laboratory Findings CBC and BMP: 01/31/17 03:57 01/31/17 03:57 ABG ABG pH 7.39 pH Units (7.32-7.45) 01/29/17 13:59 ABG pCO2 67 mmHg (35-45) H 01/29/17 13:59 ABG pO2 63 mmHg (85-104) L 01/29/17 13:59 ABG O2 Saturation 92 % (95-98) L 01/29/17 13:59 PT/INR, D-dimer PT 10.6 Seconds (9.4-12.1) 01/22/17 19:49 Abnormal lab findings: Abnormal lab results WBC 12.3 K/mcL (4.3-11.1) H D 01/31/17 03:57 RBC 4.18 M/mcL (4.19-5.50) L 01/31/17 03:57 Hgb 11.5 g/dL (12.9-16.9) L 01/31/17 03:57 Hct 36.3 % (37.5-50.1) L 01/31/17 03:57 MCH 27.5 pg (28.0-33.3) L 01/31/17 03:57 RDW 15.7 % (11.5-14.5) H 01/31/17 03:57 Monocytes # 2.2 K/mcL (0.0-1.3) H 01/31/17 03:57 ABG pCO2 67 mmHg (35-45) H 01/29/17 13:59 ABG pO2 63 mmHg (85-104) L 01/29/17 13:59 ABG HCO3 40.6 mEQ/L (21-27) H 01/29/17 13:59 ABG Total CO2 42.7 mEq/L (20-26) H 01/29/17 13:59 ABG O2 Saturation 92 % (95-98) L 01/29/17 13:59 ABG Base Excess 13.2 mEq/L (-2.0 to 3.0) H 01/29/17 13:59 Potassium 3.3 mEq/L (3.5-4.5) L 01/31/17 03:57 Chloride 96 mEq/L (98-109) L 01/31/17 03:57 Carbon Dioxide 38 mEq/L (19-29) H 01/31/17 03:57 Glucose 161 mg/dL (70-99) H 01/31/17 03:57 POC Glucose 134 (58-89) H 01/31/17 00:20 Ammonia 75 mcmol/L (18-72) H 01/22/17 20:33 Serum Total Protein 5.8 g/dL (6.0-8.3) L 01/23/17 00:30 Albumin 2.4 g/dL (3.5-5.0) L 01/23/17 00:30 Albumin/Globulin Ratio 0.7 (1.1-2.2) L 01/23/17 00:30 HDL Cholesterol 60 mg/dL (40-59) H 01/23/17 04:00 Amylase 211 Units/L (25-125) H 01/23/17 00:30 Lipase 6 Units/L (8-78) L 01/23/17 00:30 Urine Clarity Cloudy (Clear) A 01/22/17 20:00 Urine Protein 100 mg/dL (Neg-Trace) H 01/22/17 20:00 Urine Blood Small (Negative) H 01/22/17 20:00 Urine Microscopic RBC 3-5 per hpf (0-3) H 01/22/17 20:00 Urine Microscopic WBC 3-5 per hpf (0-3) H 01/22/17 20:00 Ur Squamous Epith Cells Many per lpf (None-Few) H 01/22/17 20:00 - Clinical Findings Intake & Output: Intake & Output 01/30/17 01/31/17 01/31/17 23:59 07:59 15:59 Output Total 700 / 700 450 / 450 150 / 150 Balance -700 / -700 -450 / -450 -150 / -150 Weight 61.144 kg Consult Discharge Plan - Plan Referrals: NO,PCP [Primary Care Provider] -
[2017-01-31] MEDS: Levofloxacin 750 MG/150 ML 750 MG/150 ML BAG IVPB SCH (09:17)
[2017-01-31] MEDS: Isosorbide MONOnitrate (24 HR) 30 MG TAB.ER.24H PO SCH (09:18)
[2017-01-31] MEDS: Pantoprazole 40 MG VIAL IVP SCH (09:18)
[2017-01-31] MEDS: Nystatin SUSP 5 ML UD.LIQ PO SCH (09:18)
[2017-01-31] MEDS: Thiamine (B-1) 100 MG TABLET PO SCH (09:18)
[2017-01-31] MEDS: amLODIPine 5 MG TABLET PO SCH (09:18)
[2017-01-31] MEDS: Folic Acid 1 MG TABLET PO SCH (09:18)
[2017-01-31] MEDS: Furosemide 40 MG TABLET PO SCH (09:18)
[2017-01-31] MEDS: Vitamin B Complex/Vit C/Vit E 1 EACH TABLET PO SCH (09:18)
[2017-01-31] MEDS: Docusate Oral Soln 100 MG/10 ML UDC GTUBE SCH (09:19)
[2017-01-31] MEDS: Silver Sulfadiazine 50 GM TUBE TP SCH (09:19)
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
[2017-01-31] MEDS ORDERED: amLODIPine 5 MG TABLET PO SCH (10:55)
[2017-01-31] MEDS ORDERED: Potassium Phosphate 44 MEQ in 0.9 % Sodium Chloride 250 ML IVPB PRN (14:13)
[2017-01-31] MEDS ORDERED: Sodium Phosphate 30 MMOL in D5% in Water 100 ML IVPB PRN (14:13)
[2017-01-31] MEDS ORDERED: Calcium Gluconate 1,000 MG in D5% in Water 100 ML IVPB PRN (14:13)
[2017-01-31] MEDS ORDERED: Magnesium Sulfate 2 GM in D5% in Water 100 ML IVPB PRN (14:13)
[2017-01-31] MEDS ORDERED: Naloxone 0.4 MG/ML INJ IVP PRN (14:13)
[2017-01-31] MEDS ORDERED: Nicotine 21 MG PATCH.TD24 TD PRN (14:13)
[2017-01-31] MEDS ORDERED: cloNIDine HCl 0.1 MG TABLET PO SCH (21:00)
[2017-01-31] MEDS: cloNIDine HCl 0.1 MG TABLET PO SCH (21:02)
[2017-01-31] MEDS: Docusate Oral Soln 100 MG/10 ML UDC PO SCH (21:03)
[2017-01-31] MEDS: *HR* LORazepam 0.5 MG TABLET PO SCH (21:50)
[2017-02-01] MEDS: Ipratropium Neb 0.5 MG NEBULIZER IH SCH ×6 (00:20→19:59)
[2017-02-01] MEDS: Levalbuterol Neb 1.25 MG/3 ML IH SCH ×6 (00:20→19:59)
[2017-02-01 04:02] LABS: Eosinophils # 0.1 K/mcL (0.0-0.6); Eosinophils % 0.8 %; Hematocrit 36.7 % (37.5-50.1); Hemoglobin 11.6 g/dL (12.9-16.9); Immature Granulocytes % 0.5 % (0-4); Lymphocytes # 1.9 K/mcL (0.6-4.6); Lymphocytes % 19.3 %; Mean Corpuscular HGB Conc 31.6 g/dL (31.6-35.5); Mean Corpuscular Hemoglobin 27.6 pg (28.0-33.3); Mean Corpuscular Volume 87.2 fL (83.0-100.0); Mean Platelet Volume 10.7 fL (9.4-12.4); Monocytes # 1.8 K/mcL (0.0-1.3); Monocytes % 18.2 %; Neutrophils # 6.1 K/mcL (1.6-8.9); Platelet Count 313 K/mcL (140-400); Red Blood Count 4.21 M/mcL (4.19-5.50); Red Cell Distribution Width 15.9 % (11.5-14.5); Segmented Neutrophils % 61.2 %
[2017-02-01 04:21] LABS: Platelet Estimate Normal (Normal); Reactive Lymphocytes Present (Not Present)
[2017-02-01 04:25] LABS: BUN/Creatinine Ratio 20 (6-26); Blood Urea Nitrogen 14 mg/dL (8-26); Calcium 9.1 mg/dL (8.6-10.8); Chloride 95 mEq/L (98-109); Glucose 133 mg/dL (70-99); Osmolality,Calculated 292 (280-300); Potassium 3.5 mEq/L (3.5-4.5); Sodium 140 mEq/L (136-145); eGFR For African Americans > 60 (> 60); eGFR For Non-African Americans > 60 (> 60)
[2017-02-01 04:31] LABS: Carbon Dioxide 40 mEq/L (19-29)
[2017-02-01] MEDS: *HR* Enoxaparin 40 MG/0.4 ML SYRINGE SQ SCH (05:10)
[2017-02-01] MEDS: Budesonide/Formoterol 160/4.5 MDI IH SCH ×2 (07:23→20:02)
--- NOTE | 2017-02-01 09:03 | Pulmonology Progress Note ---
Date of Encounter: 02/01/17 Time of Encounter: 09:04 Assessment and Plan (1) Acute on chronic respiratory failure with hypoxia and hypercapnia Current Visit: Yes Status: Acute Extubated 01/28. Per family, if patient has respiratory decompensation, they request re- intubation. Acute on chronic respiratory failure likely secondary to acute exacerbation COPD. CXR Jan: costophrenic angle blunting consistent with small BL pleural effusion with resolution of previous RLL consolidation. Sputum culture: Serratia marcescens Mild leukocytosis yesterday; now resolved. No clinical suspicion for new infection. Patient remains stable and improving. - Continue tx exacerbation of COPD: Symbicort, DuoNeb, IV steroid, antibiotic, O2 support. - Begin home med throphylline. - Continue BiPap PRN. - Continue supplemental O2 - currently at his baseline 3L NC continuous. - Levaquin day 09/04 due to sputum culture. Patient kept in ICU overnight (i.e. not transfered out) due to lack of bed availability. - Plan to transfer to step-down unit today. Palliative care has signed off. Their input has been appreciated. - Patient remains Full code. - Consult to PT/OT placed for recommendation on eventual placement. Patient prefers to go back home; states he moves from the couch to the bathroom and back. (2) Acute exacerbation of chronic obstructive pulmonary disease Current Visit: Yes Status: Acute as above (3) Alcohol abuse Current Visit: Yes Status: Chronic Patient is 12 days out from last drink. No DTs. (4) Gout Current Visit: Yes Status: Chronic Continue home dose Allopurinol 100mg PO Qdaily. Qualifiers: Qualified Code(s): M10.9 - Gout, unspecified (5) Hematuria Current Visit: Yes Status: Resolved Resolved. Hb remains stable. (6) DVT prophylaxis Current Visit: No Status: Acute Lovenox SQ Qdaily. Subjective Principal diagnosis: Acute on chronic respiratory failure Interval history: Mr. Guardado notes he continues to improve. Urinating and stooling well. Appetite is good. He has no complaints at this time. Discussed with him the "Code Surge" in the hospital and the likelihood he will stay in the ICU today instead of being transferred to a step down unit. Objective PUL Vital signs: Last Vital Signs Temp 98.6 F 02/01/17 07:29 Pulse 107 02/01/17 08:43 Resp 26 02/01/17 07:33 BP 137/81 02/01/17 07:33 Pulse Ox 95 02/01/17 07:33 General appearance: no acute distress, alert Eyes: nonicteric ENT: oropharynx moist Neck: supple Effort: normal Auscultation: bilateral: wheezes Cardiovascular: regular rate and rhythm Gastrointestinal: normoactive bowel sounds, soft, non-tender, non-distended Integumentary: normal Extremities: no cyanosis, no edema Musculoskeletal: no deformities normal mental status mood appropriate, affect normal Results - Laboratory Findings CBC and BMP: 02/01/17 03:49 02/01/17 03:49 ABG ABG pH 7.39 pH Units (7.32-7.45) 01/29/17 13:59 ABG pCO2 67 mmHg (35-45) H 01/29/17 13:59 ABG pO2 63 mmHg (85-104) L 01/29/17 13:59 ABG O2 Saturation 92 % (95-98) L 01/29/17 13:59 PT/INR, D-dimer PT 10.6 Seconds (9.4-12.1) 01/22/17 19:49 Abnormal lab findings: Abnormal lab results Hgb 11.6 g/dL (12.9-16.9) L 02/01/17 03:49 Hct 36.7 % (37.5-50.1) L 02/01/17 03:49 MCH 27.6 pg (28.0-33.3) L 02/01/17 03:49 RDW 15.9 % (11.5-14.5) H 02/01/17 03:49 Monocytes # 1.8 K/mcL (0.0-1.3) H 02/01/17 03:49 Reactive Lymphocytes Present (Not Present) A 02/01/17 03:49 ABG pCO2 67 mmHg (35-45) H 01/29/17 13:59 ABG pO2 63 mmHg (85-104) L 01/29/17 13:59 ABG HCO3 40.6 mEQ/L (21-27) H 01/29/17 13:59 ABG Total CO2 42.7 mEq/L (20-26) H 01/29/17 13:59 ABG O2 Saturation 92 % (95-98) L 01/29/17 13:59 ABG Base Excess 13.2 mEq/L (-2.0 to 3.0) H 01/29/17 13:59 Chloride 95 mEq/L (98-109) L 02/01/17 03:49 Carbon Dioxide 40 mEq/L (19-29) H* 02/01/17 03:49 Creatinine 0.71 mg/dL (0.72-1.25) L 02/01/17 03:49 Glucose 133 mg/dL (70-99) H 02/01/17 03:49 POC Glucose 124 (58-89) H 02/01/17 00:04 Ammonia 75 mcmol/L (18-72) H 01/22/17 20:33 Serum Total Protein 5.8 g/dL (6.0-8.3) L 01/23/17 00:30 Albumin 2.4 g/dL (3.5-5.0) L 01/23/17 00:30 Albumin/Globulin Ratio 0.7 (1.1-2.2) L 01/23/17 00:30 HDL Cholesterol 60 mg/dL (40-59) H 01/23/17 04:00 Amylase 211 Units/L (25-125) H 01/23/17 00:30 Lipase 6 Units/L (8-78) L 01/23/17 00:30 Urine Clarity Cloudy (Clear) A 01/22/17 20:00 Urine Protein 100 mg/dL (Neg-Trace) H 01/22/17 20:00 Urine Blood Small (Negative) H 01/22/17 20:00 Urine Microscopic RBC 3-5 per hpf (0-3) H 01/22/17 20:00 Urine Microscopic WBC 3-5 per hpf (0-3) H 01/22/17 20:00 Ur Squamous Epith Cells Many per lpf (None-Few) H 01/22/17 20:00 - Clinical Findings Intake & Output: Intake & Output 01/31/17 02/01/17 02/01/17 23:59 07:59 15:59 Intake Total 240 / 240 500 / 500 360 / 360 Output Total 1999 / 1999 200 / 200 Balance -1760 / -1760 300 / 300 360 / 360 Consult Discharge Plan - Plan Referrals: NO,PCP [Primary Care Provider] -
[2017-02-01] MEDS: Levofloxacin 750 MG/150 ML 750 MG/150 ML BAG IVPB SCH (09:18)
[2017-02-01] MEDS: Furosemide 40 MG TABLET PO SCH (09:20)
[2017-02-01] MEDS: predniSONE 20 MG TABLET PO SCH (09:20)
[2017-02-01] MEDS: *HR* LORazepam 0.5 MG TABLET PO SCH ×2 (09:20→20:42)
[2017-02-01] MEDS: Thiamine (B-1) 100 MG TABLET PO SCH (09:20)
[2017-02-01] MEDS: Vitamin B Complex/Vit C/Vit E 1 EACH TABLET PO SCH (09:20)
[2017-02-01] MEDS: Isosorbide MONOnitrate (24 HR) 30 MG TAB.ER.24H PO SCH (09:21)
[2017-02-01] MEDS: Folic Acid 1 MG TABLET PO SCH (09:21)
[2017-02-01] MEDS: cloNIDine HCl 0.1 MG TABLET PO SCH ×2 (09:21→20:42)
[2017-02-01] MEDS: amLODIPine 5 MG TABLET PO SCH (09:21)
[2017-02-01] MEDS: Silver Sulfadiazine 50 GM TUBE TP SCH (09:22)
[2017-02-01] MEDS: Docusate Oral Soln 100 MG/10 ML UDC PO SCH ×3 (09:22→20:46)
[2017-02-02] MEDS: Ipratropium Neb 0.5 MG NEBULIZER IH SCH ×4 (00:27→11:19)
[2017-02-02] MEDS: Levalbuterol Neb 1.25 MG/3 ML IH SCH ×4 (00:27→11:19)
[2017-02-02 04:01] LABS: Basophils % 0.1 %; Eosinophils # 0.1 K/mcL (0.0-0.6); Eosinophils % 0.8 %; Hemoglobin 11.9 g/dL (12.9-16.9); Immature Granulocytes % 0.5 % (0-4); Immature Platelets 5.3 % (1.1-6.1); Lymphocytes # 2.2 K/mcL (0.6-4.6); Mean Corpuscular HGB Conc 31.3 g/dL (31.6-35.5); Mean Corpuscular Hemoglobin 27.5 pg (28.0-33.3); Mean Corpuscular Volume 87.8 fL (83.0-100.0); Mean Platelet Volume 10.2 fL (9.4-12.4); Monocytes # 1.7 K/mcL (0.0-1.3); Monocytes % 15.1 %; Platelet Count 403 K/mcL (140-400); Red Blood Count 4.33 M/mcL (4.19-5.50); Red Cell Distribution Width 15.5 % (11.5-14.5); Segmented Neutrophils % 63.5 %
[2017-02-02 04:25] LABS: BUN/Creatinine Ratio 14 (6-26); Blood Urea Nitrogen 10 mg/dL (8-26); Calcium 9.5 mg/dL (8.6-10.8); Chloride 92 mEq/L (98-109); Glucose 130 mg/dL (70-99); Osmolality,Calculated 289 (280-300); Potassium 3.4 mEq/L (3.5-4.5); Sodium 139 mEq/L (136-145); eGFR For African Americans > 60 (> 60); eGFR For Non-African Americans > 60 (> 60)
[2017-02-02 04:29] LABS: Carbon Dioxide 40 mEq/L (19-29)
[2017-02-02] MEDS: *HR* Enoxaparin 40 MG/0.4 ML SYRINGE SQ SCH (05:57)
[2017-02-02] MEDS: Budesonide/Formoterol 160/4.5 MDI IH SCH (08:00)
[2017-02-02] MEDS: amLODIPine 5 MG TABLET PO SCH (08:50)
[2017-02-02] MEDS: Furosemide 40 MG TABLET PO SCH (08:50)
[2017-02-02] MEDS: predniSONE 20 MG TABLET PO SCH (08:50)
[2017-02-02] MEDS: Docusate Oral Soln 100 MG/10 ML UDC PO SCH ×2 (08:50→08:57)
[2017-02-02] MEDS: Folic Acid 1 MG TABLET PO SCH (08:51)
[2017-02-02] MEDS: Isosorbide MONOnitrate (24 HR) 30 MG TAB.ER.24H PO SCH (08:51)
[2017-02-02] MEDS: *HR* LORazepam 0.5 MG TABLET PO SCH (08:51)
[2017-02-02] MEDS: Levofloxacin 750 MG/150 ML 750 MG/150 ML BAG IVPB SCH (08:51)
[2017-02-02] MEDS: Thiamine (B-1) 100 MG TABLET PO SCH (08:51)
[2017-02-02] MEDS: cloNIDine HCl 0.1 MG TABLET PO SCH (08:51)
[2017-02-02] MEDS: Vitamin B Complex/Vit C/Vit E 1 EACH TABLET PO SCH (08:51)
[2017-02-02] MEDS: Silver Sulfadiazine 50 GM TUBE TP SCH (08:52)
--- NOTE | 2017-02-02 08:57 | Pulmonology Progress Note ---
<Artis Rivera - Last Filed: 02/02/17 08:52> Date of Encounter: 02/02/17 Time of Encounter: 08:53 Assessment and Plan (1) Acute on chronic respiratory failure with hypoxia and hypercapnia Status: Acute Extubated 01/28. Per family, if patient has respiratory decompensation, they request re- intubation. Acute on chronic respiratory failure likely secondary to acute exacerbation COPD. CXR Jan: costophrenic angle blunting consistent with small BL pleural effusion with resolution of previous RLL consolidation. Sputum culture: Serratia marcescens Mild leukocytosis yesterday; now resolved. No clinical suspicion for new infection. Patient remains stable and improving. - Continue tx exacerbation of COPD: Symbicort, DuoNeb, IV steroid, antibiotic, O2 support. - Begin home med throphylline. - Continue BiPap PRN. - Continue supplemental O2 - currently at his baseline 3L NC continuous. - Levaquin day 10/04 due to sputum culture. Patient transferred out of ICU 2 days ago. Patient kept in ICU overnight (i.e. not transfered out) due to lack of bed availability. - Plan to transfer to step-down unit today. Palliative care has signed off. Their input has been appreciated. - Patient remains Full code. PT recommends placement to SNF for continued therapy. Patient prefers to go back home; states he moves from the couch to the bathroom and back. - Continue PT while in hospital. (2) Acute exacerbation of chronic obstructive pulmonary disease Status: Acute as above (3) Alcohol abuse Status: Chronic Patient is 13 days out from last drink. No DTs. (4) Gout Status: Chronic Continue home dose Allopurinol 100mg PO Qdaily. Qualifiers: Qualified Code(s): M10.9 - Gout, unspecified (5) Hematuria Status: Resolved Resolved. Hb remains stable. (6) DVT prophylaxis Status: Acute Lovenox SQ Qdaily. Subjective Principal diagnosis: Acute on chronic respiratory failure Interval history: Mr. Guardado notes he continues to improve. Urinating and stooling well. Appetite is good. He refuses rehabilitation and insists on going home today. In a discussion with the patinet, I was informed he was waiting on his clothes after which he was leaving and would fight his way out if needed. Nursing and myself were able to reason with the patient to get him to stay seated until his sons arrived. Patient notes, "he is as good as he is going to get." One of his sons, from [place], [place], is bedside and discussed with us the patient's history of removing leads and leaving the hospital. Son is preparing the patient's home for his return. We discussed continuing PT while in the hospital and our desire for continued SNF PT once discharged; which he knew the patient would outright refuse. Objective PUL Vital signs: Last Vital Signs Temp 98 F 02/02/17 07:55 Pulse 123 02/02/17 04:00 Resp 28 02/02/17 04:00 BP 107/82 02/02/17 04:00 Pulse Ox 94 02/02/17 03:56 General appearance: no acute distress, alert Eyes: nonicteric ENT: oropharynx moist Effort: normal Auscultation: bilateral: wheezes Cardiovascular: regular rate and rhythm Gastrointestinal: normoactive bowel sounds, soft, non-tender, non-distended Integumentary: normal Extremities: no edema Musculoskeletal: no deformities affect normal, other (patient expresses desire to leave the hospital) Results - Laboratory Findings CBC and BMP: 02/02/17 03:53 02/02/17 03:53 ABG ABG pH 7.39 pH Units (7.32-7.45) 01/29/17 13:59 ABG pCO2 67 mmHg (35-45) H 01/29/17 13:59 ABG pO2 63 mmHg (85-104) L 01/29/17 13:59 ABG O2 Saturation 92 % (95-98) L 01/29/17 13:59 PT/INR, D-dimer PT 10.6 Seconds (9.4-12.1) 01/22/17 19:49 Abnormal lab findings: Abnormal lab results Hgb 11.9 g/dL (12.9-16.9) L 02/02/17 03:53 MCH 27.5 pg (28.0-33.3) L 02/02/17 03:53 MCHC 31.3 g/dL (31.6-35.5) L 02/02/17 03:53 RDW 15.5 % (11.5-14.5) H 02/02/17 03:53 Plt Count 403 K/mcL (140-400) H 02/02/17 03:53 Monocytes # 1.7 K/mcL (0.0-1.3) H 02/02/17 03:53 Reactive Lymphocytes Present (Not Present) A 02/01/17 03:49 ABG pCO2 67 mmHg (35-45) H 01/29/17 13:59 ABG pO2 63 mmHg (85-104) L 01/29/17 13:59 ABG HCO3 40.6 mEQ/L (21-27) H 01/29/17 13:59 ABG Total CO2 42.7 mEq/L (20-26) H 01/29/17 13:59 ABG O2 Saturation 92 % (95-98) L 01/29/17 13:59 ABG Base Excess 13.2 mEq/L (-2.0 to 3.0) H 01/29/17 13:59 Potassium 3.4 mEq/L (3.5-4.5) L 02/02/17 03:53 Chloride 92 mEq/L (98-109) L 02/02/17 03:53 Carbon Dioxide 40 mEq/L (19-29) H* 02/02/17 03:53 Creatinine 0.71 mg/dL (0.72-1.25) L 02/02/17 03:53 Glucose 130 mg/dL (70-99) H 02/02/17 03:53 POC Glucose 148 (58-89) H 02/01/17 17:31 Ammonia 75 mcmol/L (18-72) H 01/22/17 20:33 Serum Total Protein 5.8 g/dL (6.0-8.3) L 01/23/17 00:30 Albumin 2.4 g/dL (3.5-5.0) L 01/23/17 00:30 Albumin/Globulin Ratio 0.7 (1.1-2.2) L 01/23/17 00:30 HDL Cholesterol 60 mg/dL (40-59) H 01/23/17 04:00 Amylase 211 Units/L (25-125) H 01/23/17 00:30 Lipase 6 Units/L (8-78) L 01/23/17 00:30 Urine Clarity Cloudy (Clear) A 01/22/17 20:00 Urine Protein 100 mg/dL (Neg-Trace) H 01/22/17 20:00 Urine Blood Small (Negative) H 01/22/17 20:00 Urine Microscopic RBC 3-5 per hpf (0-3) H 01/22/17 20:00 Urine Microscopic WBC 3-5 per hpf (0-3) H 01/22/17 20:00 Ur Squamous Epith Cells Many per lpf (None-Few) H 01/22/17 20:00 - Clinical Findings Intake & Output: Intake & Output 02/01/17 02/02/17 02/02/17 23:59 07:59 15:59 Intake Total 800 / 800 Output Total 200 / 200 350 / 350 Balance 600 / 600 -350 / -350 Consult Discharge Plan - Plan Instructions: Heart Failure (DC), Acute Respiratory Distress Syndrome (DC), Cigarette Smoking and Your Health (GEN), Chronic Obstructive Pulmonary Disease ( DC), Sepsis (DC), At-Risk Alcohol Use (DC), Self-Care Measures with a Chronic Disease (DC), Pneumonia (DC) Additional Instructions: Follow-up with your primary care physician, the [facility] at the [facility], in the next 2-3 days or sooner if needed. Referrals: NO,PCP [Primary Care Provider] - 02/09/17 2:30 pm (Appt w/ [facility]) Prescriptions: PredniSONE [Prednisone] See Taper PO TAPER #21 tab <Rashard Gillette - Last Filed: 02/05/17 07:15> Date of Encounter: 02/05/17 Objective PUL Vital signs: Last Vital Signs Temp 98.1 F 02/02/17 11:35 Pulse 102 02/02/17 11:20 Resp 18 02/02/17 11:19 BP 104/68 02/02/17 11:00 Pulse Ox 92 02/02/17 11:19 Results - Laboratory Findings CBC and BMP: 02/02/17 03:53 02/02/17 03:53 ABG ABG pH 7.39 pH Units (7.32-7.45) 01/29/17 13:59 ABG pCO2 67 mmHg (35-45) H 01/29/17 13:59 ABG pO2 63 mmHg (85-104) L 01/29/17 13:59 ABG O2 Saturation 92 % (95-98) L 01/29/17 13:59 PT/INR, D-dimer PT 10.6 Seconds (9.4-12.1) 01/22/17 19:49 Abnormal lab findings: Abnormal lab results Hgb 11.9 g/dL (12.9-16.9) L 02/02/17 03:53 MCH 27.5 pg (28.0-33.3) L 02/02/17 03:53 MCHC 31.3 g/dL (31.6-35.5) L 02/02/17 03:53 RDW 15.5 % (11.5-14.5) H 02/02/17 03:53 Plt Count 403 K/mcL (140-400) H 02/02/17 03:53 Monocytes # 1.7 K/mcL (0.0-1.3) H 02/02/17 03:53 Reactive Lymphocytes Present (Not Present) A 02/01/17 03:49 ABG pCO2 67 mmHg (35-45) H 01/29/17 13:59 ABG pO2 63 mmHg (85-104) L 01/29/17 13:59 ABG HCO3 40.6 mEQ/L (21-27) H 01/29/17 13:59 ABG Total CO2 42.7 mEq/L (20-26) H 01/29/17 13:59 ABG O2 Saturation 92 % (95-98) L 01/29/17 13:59 ABG Base Excess 13.2 mEq/L (-2.0 to 3.0) H 01/29/17 13:59 Potassium 3.4 mEq/L (3.5-4.5) L 02/02/17 03:53 Chloride 92 mEq/L (98-109) L 02/02/17 03:53 Carbon Dioxide 40 mEq/L (19-29) H* 02/02/17 03:53 Creatinine 0.71 mg/dL (0.72-1.25) L 02/02/17 03:53 Glucose 130 mg/dL (70-99) H 02/02/17 03:53 POC Glucose 144 (58-89) H 02/02/17 11:22 Ammonia 75 mcmol/L (18-72) H 01/22/17 20:33 Serum Total Protein 5.8 g/dL (6.0-8.3) L 01/23/17 00:30 Albumin 2.4 g/dL (3.5-5.0) L 01/23/17 00:30 Albumin/Globulin Ratio 0.7 (1.1-2.2) L 01/23/17 00:30 HDL Cholesterol 60 mg/dL (40-59) H 01/23/17 04:00 Amylase 211 Units/L (25-125) H 01/23/17 00:30 Lipase 6 Units/L (8-78) L 01/23/17 00:30 Urine Clarity Cloudy (Clear) A 01/22/17 20:00 Urine Protein 100 mg/dL (Neg-Trace) H 01/22/17 20:00 Urine Blood Small (Negative) H 01/22/17 20:00 Urine Microscopic RBC 3-5 per hpf (0-3) H 01/22/17 20:00 Urine Microscopic WBC 3-5 per hpf (0-3) H 01/22/17 20:00 Ur Squamous Epith Cells Many per lpf (None-Few) H 01/22/17 20:00 - Attending Attestation I saw and examined the patient, reviewed pertinent labs, and reviewed pertinent imaging. The case was discussed in multidisciplinary Rounds and I agree with the resident documentation. [employer]: Alert and oriented baseline mental status. Cardiovascular: No acute issues. Pulmonary: Clinically severe COPD status post acute exacerbation. Responded well to corticosteroids. Recommended patient go to inpatient rehabilitation however, he refuses. Plan for steroid taper over several days following discharge. Discussed with patient and patient's son. Patient's son ensures us that he will help his father or gas medications to ensure adherence. Nephrology: No acute issues. GI: Tolerating oral diet well. No acute issues. ID: No evidence of ongoing untreated infection. HO: No acute issues. Endocrine: No acute issues. Disposition: Patient refuses inpatient rehabilitation. Patient discharged home. Critical care time: 0 minutes.
--- NOTE | 2017-02-02 11:17 | Discharge Summary ---
<NicoleArtis Sweet - Last Filed: 02/05/17 06:59> Date of Encounter: 02/05/17 Time of Encounter: 11:17 - Discharge Diagnosis (1) Acute on chronic respiratory failure with hypoxia and hypercapnia Priority: Primary Status: Acute Comments: Mr. Guardado notes he continues to improve. Urinating and stooling well. Appetite is good. He refuses rehabilitation and insists on going home today. In a discussion with the patient this morning, I was informed he was waiting on his clothes after which he was leaving and would fight his way out if needed. Nursing and myself were able to reason with the patient to get him to stay seated until his sons arrived. Patient notes, "he is as good as he is going to get." One of his sons, from [place], [place], is bedside and discussed with us the patient's history of removing leads and leaving the hospital. Son is preparing the patient's home for his return. Discussed continuing PT while in the hospital with patient and son as well as our desire for continued SNF PT once discharged; patient refuses all PT at this time. 1) Acute on chronic respiratory failure likely secondary to acute exacerbation COPD. Intubated and right IJ central line 01/22/17. Extubated 01/28/17. Right IJ removed 01/31/17. Patient at baseline 3L NC. Will discharge home with home regimen Patient's son has placed and in-home air purifier and has spoken with patient's live-in girlfriend to cease smoking in the patient's house. [facility] PT recommends discharge to SNF for inpatient rehab. Despite me speaking several times with the patient and son, patient refuses physical rehabilitation regardless of the risks of not doing so and benefits of doing so. He does not want home health coming to his home. He insists he will do his own PT. Sputum culture: Serratia marcescens Levaquin IV day 12/14. Will transition to PO for to complete 14 days for full treatment duration of serratia. Steroid regimen currently 20mg PO Qdaily. Will discharge on solmedrol dose pack for steroid tapering. Discussed with the patient and his son from [place] the need for steroid taper and risk of adrenal failure. Son from [place] has a plan to enact an organizing daily medication case. [facility] 2) Acute exacerbation COPD plan as above 3) EtOH Abuse Patient has hx EtOH abuse. Have discussed this with the patient with son from [place] bedside. Patient agrees to not drink EtOH any more. Son at bedside reaffirms he will not let anyone bring EtOH into the house. 4) Gout Continue home dose allopurinol. 5) Hematuria resolved (2) Acute exacerbation of chronic obstructive pulmonary disease Priority: Secondary Status: Acute Comments: as above (3) Alcohol abuse Priority: Secondary Status: Chronic Comments: as above (4) Gout Priority: Secondary Status: Chronic Comments: as above Qualifiers: Qualified Code(s): M10.9 - Gout, unspecified - Discharge Medications Prescriptions: PredniSONE [Prednisone] See Taper PO TAPER #21 tab Home Medications: Albuterol Sulfate [Albuterol Inhaler] 2 puff IH Q6HR PRN 11/10/16 [History] Allopurinol [Zyloprim] 100 mg PO DAILY 11/10/16 [History] Atorvastatin Calcium [Lipitor] 40 mg PO HS 11/10/16 [History] Docusate Sodium [Dok] 100 mg PO BID PRN 11/10/16 [History] Furosemide [Lasix] 40 mg PO DAILY 11/10/16 [History] Guaifenesin [Mucus Relief] 400 mg PO BID PRN 11/10/16 [History] Ipratropium/Albuterol Neb [Duoneb] 3 ml IH Q6HR PRN 11/10/16 [History] Isosorbide MONOnitrate (24 HR) [Imdur] 30 mg PO DAILY 11/10/16 [History] LORazepam [Ativan] 0.5 mg PO BID 11/10/16 [History] Melatonin 3 mg PO HS 11/10/16 [History] Methocarbamol [Robaxin-750] 750 mg PO QID PRN 11/10/16 [History] Naproxen [Naprosyn] 500 mg PO BID PRN 11/10/16 [History] Omeprazole [PriLOSEC] 20 mg PO DAILY 11/10/16 [History] Polyvinyl Alcohol [Artificial Tears] 1 drop BOTH EYES QID 11/10/16 [History] Ranitidine HCl [Acid Billet Sawyer] 150 mg PO BID 11/10/16 [History] Triamcinolone Acet 0.1% CRM [Kenalog] 1 appl TP TID 11/10/16 [History] Acetaminophen [Tylenol] 1,000 mg PO BID PRN 01/22/17 [History] Multivitamin [Multi-Day Vitamins] 1 each PO DAILY 01/22/17 [History] Olodaterol HCl [Striverdi Respimat] 2 puff IH DAILY 01/22/17 [History] Silver Sulfadiazine Cream [Silvadene] 1 appl TP DAILY 01/22/17 [History] Simethicone [Gas-X] 80 mg PO TID PRN 01/22/17 [History] Theophylline Anhydrous [Jose-24] 300 mg PO BID 01/22/17 [History] PredniSONE [Prednisone] See Taper PO TAPER #21 tab 02/02/17 [Rx] Allergies/Adverse Reactions: Allergies acetaminophen [From Vicodin] Allergy (Verified 11/10/16 06:00) See Comments Unknown Allergy hydrocodone [From Vicodin] Allergy (Verified 11/10/16 06:00) See Comments Unknown Allergy moxifloxacin Allergy (Verified 11/10/16 06:00) See Comments Unknown Allergy Labs on day of discharge: Labs from last 24 hours 02/02/17 02/02/17 02/01/17 03:53 03:53 17:31 WBC 11.1 RBC 4.33 Hgb 11.9 L Hct 38.0 MCV 87.8 MCH 27.5 L MCHC 31.3 L RDW 15.5 H Plt Count 403 H MPV 10.2 Immature Gran % 0.5 Seg Neutrophils % 63.5 Lymphocytes % 20.0 Monocytes % 15.1 Eosinophils % 0.8 Basophils % 0.1 Neutrophils # 7.0 Lymphocytes # 2.2 Monocytes # 1.7 H Eosinophils # 0.1 Basophils # 0.0 Immature Plt Fraction 5.3 Sodium 139 Potassium 3.4 L Chloride 92 L Carbon Dioxide 40 H* BUN 10 Creatinine 0.71 L Est GFR ( Amer) > 60 Est GFR (Non-Af Amer) > 60 BUN/Creatinine Ratio 14 Glucose 130 H POC Glucose 148 H Calculated Osmolality 289 Calcium 9.5 - Impressions ITS Impressions Chest X-Ray 01/22/17 21:31 IMPRESSION: 1. New right internal jugular center venous catheter tip in the SVC. No pneumothorax. 2. Endotracheal tube terminates 2.7 cm above the stephanie. 3. Stable ill-defined bilateral reticular opacities and partially imaged small right pleural effusion. D/ / Floyd Campbell MD / Floyd Campbell MD Interpreting Provider: Floyd Campbell MD Chest X-Ray 01/23/17 04:00 IMPRESSION: 1. Support devices as above. The side port of the enteric tube is just beyond the GE junction. 2. Mild patchy bibasilar opacification with likely small bilateral pleural effusions, right greater than left. 3. Age-indeterminate left-sided rib fractures. D/ / Mario Baig MD / Mario Baig MD Interpreting Provider: Mario Baig MD X-Ray 01/23/17 04:00 IMPRESSION: Nasogastric tube with the tip located within the body of the stomach. The proximal side port is within the fundus near the GE junction. Suggest advancement by 6 cm. Nonobstructive bowel gas pattern. D/ / 01/23/2017 07:43:57 Jerry Ahmadi MD / tristian Interpreting Provider: Jerry Ahmadi MD Date of admission: 01/22/17 21:01 Primary care physician: PCP NO Consults: 01/22/17 21:17 Consult to Nurse Navigator [CONS] Routine Comment: Consult to Nutrition [CONS] Routine Comment: Consulting Provider: NUTRITION Reason for Dietary Consult: TF Start and Manage 01/23/17 03:24 Consult to Pulmonology [CONS] Routine Consulting Provider: [facility] [place] Reason for Consult: AECOPD, Pneumonia, resp fail, intubated Call Completed: No 01/23/17 04:25 Consult to Wound Care [CONS] Routine Reason for Consult: Evaluate and recommendations for care of right hand luque Call Completed: No 01/26/17 08:13 Consult to Palliative Care [CONS] Routine Comment: goal of care, no trach wish, difficult extubation Consulting Provider: Palliative Care [place] 01/29/17 18:56 Consult to PICC team [Consult to Invasive Line Access Team] [CONS] Routine Reason for Consult: place EPIV Line Type: EPIV PICC line indications: Limited vascular access 02/01/17 08:23 Consult to Occupational Therapy [CONS] Routine Comment: Evaluate, develop and implement POC Consult to Physical Therapy [CONS] Routine Comment: Evaluate, develop and implement POC Discharging clinician: Artis Rivera Anticipated date of discharge: 02/02/17 - Patient Status Disposition: Home, Self-Care Condition: Good Functional capacity at discharge: uses cane/walker Overall status at discharge: patient is back to baseline - Discharge Instructions Instructions: Heart Failure (DC), Acute Respiratory Distress Syndrome (DC), Cigarette Smoking and Your Health (GEN), Chronic Obstructive Pulmonary Disease ( DC), Sepsis (DC), At-Risk Alcohol Use (DC), Self-Care Measures with a Chronic Disease (DC), Pneumonia (DC) Follow Up With: CRISS,PCP [Primary Care Provider] - 02/09/17 2:30 pm (Appt / [place]) Additional Instructions: Follow-up with your primary care physician, the [facility] at the [facility], in the next 2-3 days or sooner if needed. - Diet and Activity Activity: increase activity as tolerated, resume usual activities as tolerated, wear oxygen at all times (3L) Diet: low salt diet - Hospital Course Hospital course: Mr. Guardado is a 71 year old male - Time Spent with Patient Total time spent providing and/or coordinating discharge services: Physical Examination Vital Signs: Vital Signs, Last 4 Hours Temp Pulse 02/02/17 07:55 98 F 02/02/17 07:35 111 General appearance: no acute distress, alert Eyes: nonicteric ENT: oropharynx moist Neck: supple Effort: normal Auscultation: bilateral: diminished breath sounds, wheezes Cardiovascular: regular rate and rhythm Gastrointestinal: normoactive bowel sounds, soft, non-tender, non-distended Integumentary: normal Extremities: no cyanosis, no edema, pink and warm, pulses normal Musculoskeletal: no deformities normal mental status, pupils equal and round mood appropriate, affect normal <Rashard Gillette - Last Filed: 02/05/17 07:18> Date of Encounter: 02/05/17 - Impressions ITS Impressions Chest X-Ray 01/22/17 21:31 IMPRESSION: 1. New right internal jugular center venous catheter tip in the SVC. No pneumothorax. 2. Endotracheal tube terminates 2.7 cm above the stephanie. 3. Stable ill-defined bilateral reticular opacities and partially imaged small right pleural effusion. D/ / Floyd Campbell MD / Floyd Campbell MD Interpreting Provider: Floyd Campbell MD Chest X-Ray 01/23/17 04:00 IMPRESSION: 1. Support devices as above. The side port of the enteric tube is just beyond the GE junction. 2. Mild patchy bibasilar opacification with likely small bilateral pleural effusions, right greater than left. 3. Age-indeterminate left-sided rib fractures. D/ / Mario Baig MD / Mario Baig MD Interpreting Provider: Mario Baig MD X-Ray 01/23/17 04:00 IMPRESSION: Nasogastric tube with the tip located within the body of the stomach. The proximal side port is within the fundus near the GE junction. Suggest advancement by 6 cm. Nonobstructive bowel gas pattern. D/ / 01/23/2017 07:43:57 Jerry Ahmadi MD / tristian Interpreting Provider: Jerry Ahmadi MD Date of admission: 01/22/17 21:01 Primary care physician: PCP NO Consults: 01/22/17 21:17 Consult to Nurse Navigator [CONS] Routine Comment: Consult to Nutrition [CONS] Routine Comment: Consulting Provider: NUTRITION Reason for Dietary Consult: TF Start and Manage 01/23/17 03:24 Consult to Pulmonology [CONS] Routine Consulting Provider: Pulm [facility] [place] Reason for Consult: AECOPD, Pneumonia, resp fail, intubated Call Completed: No 01/23/17 04:25 Consult to Wound Care [CONS] Routine Reason for Consult: Evaluate and recommendations for care of right hand luque Call Completed: No 01/26/17 08:13 Consult to Palliative Care [CONS] Routine Comment: goal of care, no trach wish, difficult extubation Consulting Provider: [facility] [place] 01/29/17 18:56 Consult to PICC team [Consult to Invasive Line Access Team] [CONS] Routine Reason for Consult: place EPIV Line Type: EPIV PICC line indications: Limited vascular access 02/01/17 08:23 Consult to Occupational Therapy [CONS] Routine Comment: Evaluate, develop and implement POC Consult to Physical Therapy [CONS] Routine Comment: Evaluate, develop and implement POC - Hospital Course Hospital course: Mr. Guardado is a 71 year old male - Time Spent with Patient Total time spent providing and/or coordinating discharge services: - Attending Attestation I saw and examined the patient, reviewed pertinent labs, reviewed all imaging. Case was discussed in multidisciplinary rounds agree with the resident's documentation. Recommended the patient that he be admitted for inpatient rehabilitation due to extensive deconditioning partially related to prolonged hospital admission. Patient adamantly refuses. Patient's son has traveled from [place], [place] to assist. Concern was raised for patient's ability to adhere to discharge medications, particularly the remainder of his antibiotics and several days of continued steroid taper. Patient's unsure as to the ICU staff that he will assist his father nor his medications and taking them as directed to ensure good adherence. Patient demonstrates capacity for decision-making and will be discharged to his own care after declining recommendations for inpatient rehabilitation.
[2017-02-02 11:31] VITALS: BP 104/68
== END 2017-02-02 13:16 | disposition home or self-care (01) | DRG 207 ==
LOC: EMEROO 19:31 → ICNU 21:01
PROVIDERS: ADMIT Internal Medicine; ATTEND Internal Medicine

== ENCOUNTER 2018-01-14 10:16 | Inpatient (IN) ==
[2018-01-14] MEDS ORDERED: methylPREDNISolone 125 MG/2 ML VIAL IVP ONE (10:21)
[2018-01-14] MEDS ORDERED: Ipratropium/Albuterol Neb 3 ML IH ONE (10:22)
[2018-01-14] MEDS ORDERED: *HR* FentaNYL (PF) 100 MCG/2 ML VIAL IVP ONE (10:57)
[2018-01-14 11:18] LABS: Basophils % 0.2 %; Eosinophils # 0.7 K/mcL (0.0-0.6); Eosinophils % 5.6 %; Hematocrit 20.8 % (37.5-50.1); Hemoglobin 6.7 g/dL (12.9-16.9); Immature Granulocytes % 0.8 % (0-4); Lymphocytes # 1.6 K/mcL (0.6-4.6); Lymphocytes % 12.1 %; Mean Corpuscular HGB Conc 32.2 g/dL (31.6-35.5); Mean Corpuscular Hemoglobin 26.8 pg (28.0-33.3); Mean Corpuscular Volume 83.2 fL (83.0-100.0); Mean Platelet Volume 9.2 fL (9.4-12.4); Monocytes # 2.2 K/mcL (0.0-1.3); Monocytes % 17.1 %; Neutrophils # 8.3 K/mcL (1.6-8.9); Platelet Count 298 K/mcL (140-400); Red Cell Distribution Width 14.9 % (11.5-14.5); Segmented Neutrophils % 64.2 %
[2018-01-14 11:24] LABS: INR 1.3; Prothrombin Time 14.4 Seconds (9.4-12.1)
[2018-01-14 11:27] LABS: Activated Partial Thrombo Time 29.3 Seconds (26.0-36.0)
[2018-01-14 11:39] LABS: BUN/Creatinine Ratio 12 (6-26); Blood Urea Nitrogen 10 mg/dL (8-23); Calcium 8.5 mg/dL (8.6-10.3); Carbon Dioxide 37 mEq/L (23-29); Chloride 78 mEq/L (98-107); Glucose 132 mg/dL (70-105); Osmolality,Calculated 251 (280-300); Potassium 4.5 mEq/L (3.5-5.1); Sodium 120 mEq/L (136-145); Troponin I < 0.03 ng/mL (< 0.04); eGFR For African Americans > 60 (> 60); eGFR For Non-African Americans > 60 (> 60)
--- NOTE | 2018-01-14 12:06 | Emergency Department Note ---
Disposition Clinical Impression: Chronic respiratory failure with hypoxia, Hyponatremia Anemia Qualifiers: Anemia type: unspecified type Qualified Code(s): D64.9 - Anemia, unspecified Closed right hip fracture Qualifiers: Encounter type: initial encounter Qualified Code(s): S72.001A - Fracture of unspecified part of neck of right femur, initial encounter for closed fracture Disposition: Admitted As Inpatient Condition: Good [facility] Care Provider[facility] - Time of Disposition: 12:34 General Adult HPI - General Chief complaint: ED Fall Stated complaint: R hip pain from Fall/LOREE Time Seen by Provider: 01/14/18 10:18 Source: patient, family, EMS Mode of arrival: EMS Limitations: no limitations Nursing Notes Reviewed: Yes Vital Signs Reviewed: Yes - History of Present Illness HPI Narrative: Patient presents by EMS today for evaluation of right hip pain. Patient fell approximately 4 days ago at home. Since then his had persistent pain. Family decided to bring him out today because the pain was getting worse. Patient tripped over his oxygen tubing. EMS provided breathing treatments and transport secondary to diminished pulse ox and diminished breath sounds. Patient has known COPD. Denied any other symptoms or complaints on the time of arrival. Onset (ago): day(s) Location: right, lower extremity Radiation: non-radiation Pain Severity: moderate Pain Scale: 0 Quality: aching Consistency: constant Associated symptoms: Reports: denies other symptoms Treatments Prior to Arrival: none - Related Data Home Medications Medication Instructions Recorded Confirmed Albuterol Sulfate [Albuterol 2 puff IH Q6HR PRN 11/10/16 01/14/18 Inhaler] Atorvastatin Calcium [Lipitor] 40 mg PO HS 11/10/16 01/14/18 Docusate Sodium [Dok] 100 mg PO BID PRN 11/10/16 01/14/18 Furosemide [Lasix] 40 mg PO DAILY 11/10/16 01/14/18 Guaifenesin [Mucus Relief] 400 mg PO BID PRN 11/10/16 01/14/18 Ipratropium/Albuterol Neb [Duoneb] 3 ml IH Q6HR PRN 11/10/16 01/14/18 Isosorbide MONOnitrate (24 HR) 30 mg PO DAILY 11/10/16 01/14/18 [Imdur] LORazepam [Ativan] 0.5 mg PO BID 11/10/16 01/14/18 Melatonin 3 mg PO HS 11/10/16 01/14/18 Methocarbamol [Robaxin-750] 750 mg PO QID PRN 11/10/16 01/14/18 Omeprazole [PriLOSEC] 20 mg PO DAILY 11/10/16 01/14/18 Polyvinyl Alcohol [Artificial 1 drop BOTH EYES QID 11/10/16 01/14/18 Tears] Ranitidine HCl [Acid Kitchen Bath Designer] 150 mg PO BID 11/10/16 01/14/18 Acetaminophen [Tylenol] 1,000 mg PO BID PRN 01/22/17 01/14/18 Multivitamin [Multi-Day Vitamins] 1 each PO DAILY 01/22/17 01/14/18 Olodaterol HCl [Striverdi Respimat] 2 puff IH DAILY 01/22/17 01/14/18 Aspirin [Lo-Dose Aspirin EC] 81 mg PO DAILY 10/01/17 01/14/18 Calcium Carbonate/Vitamin D3 1 tab PO BID 10/01/17 01/14/18 [Calcium 500 + Vit D Caplet] Carvedilol 3.125 mg PO BID 10/01/17 01/14/18 Cetirizine HCl [All Day Allergy] 10 mg PO DAILY 10/01/17 01/14/18 Digoxin [Lanoxin] 0.25 mg PO DAILY 10/01/17 01/14/18 Diltiazem HCl [Diltiazem 24Hr Cd] 240 mg PO DAILY 10/01/17 01/14/18 Allergies Allergy/AdvReac Type Severity Reaction Status Date / Time acetaminophen [From Vicodin] Allergy See Verified 01/14/18 11:37 Comments hydrocodone [From Vicodin] Allergy See Verified 01/14/18 11:37 Comments moxifloxacin Allergy See Verified 01/14/18 11:37 Comments All systems ED: reviewed and negative except as stated. Review of Systems: As Per HPI Constitutional: Denies: fever, chills ENT ED: Denies: ear pain Cardiovascular: Denies: chest pain, palpitations, dyspnea on exertion, orthopnea , edema Respiratory: Denies: cough, dyspnea, wheezes Gastrointestinal: Denies: nausea, vomiting, diarrhea Genitourinary: Denies: dysuria, frequency Musculoskeletal: Denies: back pain, neck pain Neurological: Denies: headache, weakness, numbness Past Medical History - Past Medical History Attestation: Yes The following information was validated with the patient. Source: patient Medical history: Reports: arthritis, cirrhosis, COPD, coronary artery disease, GERD, hepatitis, hyperlipidemia, hypertension, liver disease, myocardial infarction, peripheral artery disease, renal disease, other Surgical history: Reports: no surgical history Psychiatric history: Reports: anxiety - Social History Smoking Status: Former smoker Smokeless Tobacco Status: Yes Alcohol use: Reports: none Drug use: Reports: none Physical Exam - General Limitations: no limitations General appearance: alert, in no apparent distress - Head Head exam: atraumatic, normocephalic, normal inspection - Neck Neck exam: Present: normal inspection, full ROM, trachea midline - Chest Chest inspection: Present: normal inspection, symmetric chest wall rise. Absent : tenderness - Respiratory Respiratory exam: Present: normal lung sounds bilaterally. Absent: respiratory distress, wheezes - Cardiovascular Cardiovascular exam: Present: regular rate, normal rhythm, normal heart sounds - Abdominal Exam Abdominal exam: Present: soft, Non-Tender, normal bowel sounds. Absent: tenderness, distention, guarding, rebound, rigidity - Extremities Exam Extremities exam: Present: tenderness, normal capillary refill. Absent: pedal edema - Back Exam Back exam: Present: normal inspection, full ROM. Absent: tenderness - Neurological Exam Neurological exam: Present: alert, oriented X3, CN II-XII intact, normal gait - Skin Skin exam: Present: warm, dry, intact, normal color Course Course Narrative: 72-year-old male presents emergency room by EMS for evaluation of a mechanical fall at home. Patient sustained this fall approximately 4 days ago. Patient did not lose consciousness or hit his head. He said that he is on a blood thinner but he thought was Coumadin. Patient denies any other symptoms prior to coming in. EMS found that he had diminished breath sounds. On my physical exam patient does have oxygen placed. He has significantly diminished breath sounds bilaterally. He denies any chest pain shortness of breath headache vision changes nausea vomiting or diarrhea. Abdomen is soft. He does have significant pain over the right hip. Pelvis appears to be stable. The pins were removed and does show bruising the drains out into the medial aspect of the right leg. He has palpable DP and PT pulses are symmetrical bilaterally. Vital signs are reviewed. Patient is concerning for other etiology causing some of the symptoms. Breathing treatments steroids antibiotics will be started as needed. Patient denies any other symptoms. Imaging of the pelvis and hip will be completed at this time as well as chest x-ray. Steroids and breathing treatments ordered. EKG will be completed along with troponin. Patient is otherwise clinically stable. Disposition will mostly be admission for symptomatic presentation of a right hip fracture. - Reevaluation(s) Reevaluation #1: Patient found to have what appears to be a intertrochanteric fracture with extension of the shaft of the right hip. There is slight displacement along with shortening. Patient was provided with narcotic pain medication by IV access. Patient was discussed with the on-call orthopedic physician Dr. Garcia. Recommended admission. No other recommendations from them this time. Hospitalist Dr. Scales and I reviewed the patient's presentation symptoms. Also discussed that he had labs that were still pending. After labs return a did not form the hospitalist again of the presentation along with the hemoglobin of 6.7 and a sodium of 120. These appear to be new pathology for this patient this time. He does have chronic anemia but is never been this low before. 2 units of blood will be transfused secondary to probable traumatic blood loss in the right thigh. Patient's pulses are still intact and comfortable. Disposition will be admission the hospital for definitive management. No other acute concerns or issues noted at this time patient is otherwise clinically stable. Blood transfusion is ordered and will be started here in the emergency room prior to the patient going to the floor. Breathing treatments and steroids have been given. 45 minutes of critical care applied as patient treatment course considering the traumatic presentation as well as a blood transfusion. Time: 12:32 Vital Signs Temperature 97.7 F 01/14/18 10:31 Pulse Rate 64 01/14/18 10:31 Respiratory Rate 15 01/14/18 10:31 Blood Pressure 142/70 01/14/18 10:31 O2 Sat by Pulse Oximetry 99 01/14/18 10:31 Temperature 97.7 F 01/14/18 10:31 Pulse Rate 57 01/14/18 11:49 Respiratory Rate 14 01/14/18 11:49 Blood Pressure 141/55 01/14/18 11:49 O2 Sat by Pulse Oximetry 100 01/14/18 11:49 Oxygen Delivery Oxygen Delivery Nasal Cannula Medical Decision Making - [facility] Narrative Medical decision making narrative: Mechanical fall, right hip fracture, anemia, hyponatremia - Medical Records Medical records reviewed: Yes I reviewed the patient's medical records. - Lab Data Lab results reviewed: Yes I reviewed the patient's lab results. Result diagrams: 01/14/18 11:00 01/14/18 11:00 Lab Results 01/14/18 01/14/18 01/14/18 Range/Units 11:00 11:00 11:00 WBC 13.0 H (4.3-11.1) K/mcL RBC 2.50 L (4.19-5.50) M/mcL Hgb 6.7 L (12.9-16.9) g/dL Hct 20.8 L (37.5-50.1) % MCV 83.2 (83.0-100.0) fL MCH 26.8 L (28.0-33.3) pg MCHC 32.2 (31.6-35.5) g/dL RDW 14.9 H (11.5-14.5) % Plt Count 298 (140-400) K/mcL MPV 9.2 L (9.4-12.4) fL Immature Gran % 0.8 (0-4) % Seg Neutrophils % 64.2 % Lymphocytes % 12.1 % Monocytes % 17.1 % Eosinophils % 5.6 % Basophils % 0.2 % Neutrophils # 8.3 (1.6-8.9) K/mcL Lymphocytes # 1.6 (0.6-4.6) K/mcL Monocytes # 2.2 H (0.0-1.3) K/mcL Eosinophils # 0.7 H (0.0-0.6) K/mcL Basophils # 0.0 (0.0-0.2) K/mcL PT 14.4 H (9.4-12.1) Seconds INR 1.3 APTT 29.3 (26.0-36.0) Seconds Sodium 120 L* (136-145) mEq/L Potassium 4.5 (3.5-5.1) mEq/L Chloride 78 L (98-107) mEq/L Carbon Dioxide 37 H (23-29) mEq/L BUN 10 (8-23) mg/dL Creatinine 0.81 (0.70-1.30) mg/dL Est GFR ( Amer) > 60 (> 60) Est GFR (Non-Af Amer) > 60 (> 60) BUN/Creatinine Ratio 12 (6-26) Glucose 132 H (70-105) mg/dL Calculated Osmolality 251 L (280-300) Lactic Acid (0.5-2.2) mmol/L Calcium 8.5 L (8.6-10.3) mg/dL Troponin I < 0.03 (< 0.04) ng/mL B-Natriuretic Peptide (Less than 100) pg/mL 01/14/18 01/14/18 Range/Units 11:00 11:00 WBC (4.3-11.1) K/mcL RBC (4.19-5.50) M/mcL Hgb (12.9-16.9) g/dL Hct (37.5-50.1) % MCV (83.0-100.0) fL MCH (28.0-33.3) pg MCHC (31.6-35.5) g/dL RDW (11.5-14.5) % Plt Count (140-400) K/mcL MPV (9.4-12.4) fL Immature Gran % (0-4) % Seg Neutrophils % % Lymphocytes % % Monocytes % % Eosinophils % % Basophils % % Neutrophils # (1.6-8.9) K/mcL Lymphocytes # (0.6-4.6) K/mcL Monocytes # (0.0-1.3) K/mcL Eosinophils # (0.0-0.6) K/mcL Basophils # (0.0-0.2) K/mcL PT (9.4-12.1) Seconds INR APTT (26.0-36.0) Seconds Sodium (136-145) mEq/L Potassium (3.5-5.1) mEq/L Chloride (98-107) mEq/L Carbon Dioxide (23-29) mEq/L BUN (8-23) mg/dL Creatinine (0.70-1.30) mg/dL Est GFR ( Amer) (> 60) Est GFR (Non-Af Amer) (> 60) BUN/Creatinine Ratio (6-26) Glucose (70-105) mg/dL Calculated Osmolality (280-300) Lactic Acid 1.0 (0.5-2.2) mmol/L Calcium (8.6-10.3) mg/dL Troponin I (< 0.04) ng/mL B-Natriuretic Peptide 112 H (Less than 100) pg/mL - Radiology Data Radiology results reviewed: Yes I reviewed the patient's radiology results. Chest x-ray is negative for acute pathology. Right hip appears to have intertrochanteric fracture - EKG Data EKG #1 EKG attestation: Yes I reviewed and interpreted this EKG. EKG results narrative: EKG shows sinus rhythm. Ventricular rate of 72. CO interval 161. QRS duration of 91. QTC of 384. EKG is reviewed and compared to the previous EKG on 10/01/17. No acute changes noted. Patient does not have any acute signs of axis deviation. Intervals are within normal limits. Patient has no acute signs of ST segment elevation, WPW, Brugada syndrome. Critical Care Time Critical Care Time: Yes Total Critical Care Time: 45 Attestation: Critical care performed: Time is exclusive of separately billable procedures. Time includes: direct patient care, patient reassessment, coordination of patient care, interpretation of data (laboratory data, radiology data, and respiratory data), review of patient's medical records, medical consultation and documentation of patient care. Procedures included in critical care time: Procedures excluded from critical care time:
[2018-01-14] MEDS ORDERED: 0.9 % Sodium Chloride 250 ML ONE (12:11)
[2018-01-14] MEDS ORDERED: Naloxone 0.4 MG/ML INJ IVP PRN (13:19)
[2018-01-14] MEDS ORDERED: Methocarbamol 750 MG TABLET PO PRN (13:23)
--- NOTE | 2018-01-14 13:27 | Internal Med History&Physical ---
Date of Encounter: 01/14/18 Time of Encounter: 13:15 Assessment and Plan (1) Closed right hip fracture Current visit: Yes Status: Acute Mechanical fall. Poss related to weakness, deconditioning, Hyponatremia may be causative or may have dev afterward. From IM standpoint, once sodium corrected and anemia epifanio, pt will be optimized for surgery. Pt walks > = 4 METS. Has hx CHF (?echo) but is compensated Need aggressive pulm toilet Qualifiers: Encounter type: initial encounter Qualified Code(s): S72.001A - Fracture of unspecified part of neck of right femur, initial encounter for closed fracture (2) Acute blood loss anemia Current visit: No Status: Acute (3) Hyponatremia Current visit: Yes Status: Acute Suspect hypovolemic hyponatremia. We will replace with normal saline. Cautiously given his history of CHF and the fact that he is receiving blood. Monitor. Pt does appear dehydrated. (4) Chronic respiratory failure Current visit: No Status: Acute Patient is a history of a GI bleed but is denying any symptoms related to this. No blood in stool. Suspect he may have bled into his hip. We will monitor and transfuse when necessary. He is currently receiving 2 units of packed blood cells. Monitor also for signs of volume overload as he is being transfused. Qualifiers: Respiratory failure complication: hypoxia Qualified Code(s): J96.11 - Chronic respiratory failure with hypoxia (5) GI bleed Current visit: No Status: Acute Qualifiers: GI bleed type/associated pathology: unspecified gastrointestinal hemorrhage type Qualified Code(s): K92.2 - Gastrointestinal hemorrhage, unspecified (6) Peripheral vascular disease Current visit: No Status: Acute (7) GERD (gastroesophageal reflux disease) Current visit: No Status: Chronic ppi Qualifiers: Esophagitis presence: esophagitis presence not specified Qualified Code(s) : K21.9 - Gastro-esophageal reflux disease without esophagitis (8) Afib Current visit: No Status: Chronic Rate controlled. ASA held due to acute blood loss anemia Check Dig level given his falls Qualifiers: Atrial fibrillation type: unspecified Qualified Code(s): I48.91 - Unspecified atrial fibrillation (9) Chronic respiratory failure with hypoxia Current visit: Yes Status: Chronic on chronic O2, stable (10) COPD (chronic obstructive pulmonary disease) Current visit: Yes Status: Acute stable, continue bronchodilotrs Qualifiers: COPD type: unspecified COPD Qualified Code(s): J44.9 - Chronic obstructive pulmonary disease, unspecified Internal Medicine - H&P: HPI Chief complaint: Fall, right hip pain Admitted From: Emergency Dept Plans for Post Hospital Care: Transfer Poll Clerk Care History of present illness: Mr. Guardado is a 72 year old male with multiple medical problems including CAD, CHF (do not see any old echo on record), COPD on 3 L of action continuously, atrial fibrillation not on anticoagulation but is on aspirin, digoxin. Patient recently admitted to our facility in September 2017 for a lower GI bleed. Patient underwent colonoscopy at that time which showed angiodysplasia as well as diverticulosis and internal hemorrhoids. Patient was discharged. She has been doing fairly well up until about 3 days ago when he fell out of bed once, and also fell while trying to sit in a chair. His son is present at the bedside states that these were mechanical falls and the patient mis-stepped. He did not hit his head. Did not lose consciousness. Over the last 3 days patient has had progressive pain in his right hip with decreasing ability to ambulate. He presented to the emergency room today where he was diagnosed with a right intertrochanteric fracture of his proximal femur. The case was discussed with orthopedic surgery and he was admitted for operative repair. In the emergency department patient was hemodynamically stable. On exam he appeared dehydrated and was complaining of pain in his right hip. He was still on 3 L of oxygen as per his chronic O2 needs. Complaining of any chest pain, no shortness of breath above baseline. Labs showed a sodium of 120, potassium 4.5 chloride 78 CO2 37 BOM 10 creatinine 0.81 and sugar 132. White blood cell count 13. Hemoglobin 6.7 INR 1.3. Patient was ordered 2 units of packed red blood cells. He was admitted to the [facility]. Patient has had good oral intake per son except for maybe the last day or 2. No fevers or chills. Seen for a "cold" 3 weeks a go at the [place]. Denies blood in stool. No hematemesis. Past Med Surg Social Fam HX - Past Medical History Medical history: arthritis, cirrhosis, COPD, coronary artery disease, GERD, hepatitis, hyperlipidemia, hypertension, liver disease, myocardial infarction, peripheral artery disease, renal disease, other Psychiatric history: anxiety - Past Surgical History Surgical History: no surgical history - Social History Smoking Status: Former smoker Smokeless Tobacco Status: Yes Alcohol use: none Drug use: none Recent Out of Country Travel Within the Last 8 Weeks: No Exposure or Possible Exposure to Illness During Travel: No - Additional Family History Additional family history: Fam hx reviewed and noncontributory. Internal Medicine - H&P: Meds RX: Albuterol Sulfate [Albuterol Inhaler] 2 puff IH Q6HR PRN 11/10/16 [History] RX: Atorvastatin Calcium [Lipitor] 40 mg PO HS 11/10/16 [History] RX: Docusate Sodium [Dok] 100 mg PO BID PRN 11/10/16 [History] RX: Furosemide [Lasix] 40 mg PO DAILY 11/10/16 [History] RX: Guaifenesin [Mucus Relief] 400 mg PO BID PRN 11/10/16 [History] RX: Ipratropium/Albuterol Neb [Duoneb] 3 ml IH Q6HR PRN 11/10/16 [History] RX: Isosorbide MONOnitrate (24 HR) [Imdur] 30 mg PO DAILY 11/10/16 [History] RX: LORazepam [Ativan] 0.5 mg PO BID 11/10/16 [History] RX: Melatonin 3 mg PO HS 11/10/16 [History] RX: Methocarbamol [Robaxin-750] 750 mg PO QID PRN 11/10/16 [History] RX: Omeprazole [PriLOSEC] 20 mg PO DAILY 11/10/16 [History] RX: Polyvinyl Alcohol [Artificial Tears] 1 drop BOTH EYES QID 11/10/16 [History] RX: Ranitidine HCl [Acid Bacon [employer] Rinder] 150 mg PO BID 11/10/16 [History] RX: Acetaminophen [Tylenol] 1,000 mg PO BID PRN 01/22/17 [History] RX: Multivitamin [Multi-Day Vitamins] 1 each PO DAILY 01/22/17 [History] RX: Olodaterol HCl [Striverdi Respimat] 2 puff IH DAILY 01/22/17 [History] RX: Aspirin [Lo-Dose Aspirin EC] 81 mg PO DAILY 10/01/17 [History] RX: Calcium Carbonate/Vitamin D3 [Calcium 500 + Vit D Caplet] 1 tab PO BID 10/01 [History] RX: Carvedilol 3.125 mg PO BID 10/01/17 [History] RX: Cetirizine HCl [All Day Allergy] 10 mg PO DAILY 10/01/17 [History] RX: Digoxin [Lanoxin] 0.25 mg PO DAILY 10/01/17 [History] RX: Diltiazem HCl [Diltiazem 24Hr Cd] 240 mg PO DAILY 10/01/17 [History] 3 Allergy/AdvReac Type Severity Reaction Status Date / Time acetaminophen [From Vicodin] Allergy See Verified 01/14/18 11:37 Comments hydrocodone [From Vicodin] Allergy See Verified 01/14/18 11:37 Comments moxifloxacin Allergy See Verified 01/14/18 11:37 Comments All Systems PM: A 10-system review of systems was performed and is negative for pertinent findings except as documented above in the HPI. Review of systems: Other than HPI a 10 pt ROS is negative - Constitutional Vitals: Temp Pulse Resp BP Pulse Ox 97.9 F 79 14 144/57 96 01/14/18 12:43 01/14/18 12:43 01/14/18 12:43 01/14/18 12:43 01/14/18 12:43 General appearance: Present: A&O X 3, no acute distress - Head Head exam: Present: atraumatic, normocephalic - Eye Eye exam: Present: PERRL, conjuntiva pink, sclera anicteric Pupils: Present: PERRL - ENT ENT exam: Present: mucous membranes dry - Neck Neck exam general surgery: Present: supple, trachea midline. Absent: lymphadenopathy - Respiratory Respiratory exam: Present: decreased breath sounds - Cardiovascular Cardiovascular exam: Present: RRR, +S1, +S2. Absent: diastolic murmur, gallop, rubs, systolic murmur - GI/Abdominal GI/Abdominal exam: Present: normal bowel sounds, soft, no peritoneal signs. Absent: distended, tenderness - Extremities Exam Additional comments: ecchymoses left rifht inner thigh, ttp - Neurological Exam Neurological exam: Present: CN II-XII intact, oriented X3, no focal deficits. Absent: pronater drift, facial droop, speech deficit - Skin Skin exam: Present: warm Additional comments: diminished turgor Internal Med - H&P Results - Labs CBC & Chem 7: 01/14/18 11:00 01/14/18 11:00
--- NOTE | 2018-01-14 15:51 | Orthopedic Consult Note ---
Date of Encounter: 01/14/18 Time of Encounter: 12:00 Assessment and Plan (1) Fracture of femur, intertrochanteric, right, closed Current Visit: Yes Status: Acute Plan: Discussed with Dr. Garcia. Pending medical clearance, patient to have intramedullary nailing of the right femur on Tuesday 01/16. Risks and benefits of surgery discussed with patient. He states that he makes his own medical decisions. Informed consent obtained after all questions answered. Pain control as indicated via hospitalist. Patient to be NWB to the RLE. NPO after midnight Sunday night for surgery Sunday. Thank you for this consultation. Qualifiers: Encounter type: initial encounter Fracture alignment: displaced Qualified Code(s): S72.141A - Displaced intertrochanteric fracture of right femur, initial encounter for closed fracture History of Present Illness Chief complaint: right leg pain/unable to walk HPI: Mr. Guardado is a 72 year old male presenting to [facility] with inability to walk. He states he fell appx 4 days ago. Per patient he lives at home with his son and is on 3 L O2 continuous and was laying on his O2 tubing and he states he fell in the bedroom - states he rolled out of bed and then states his son tells him that he fell again in the living room that same day. He states since then he has had pain in the right groin and inability to walk. He states [facility] states he is presenting to [facility] for first evaulation of this problem. He denies any other complaints at present. He denies numbness, paresthesia, paralysis, or bleeding to the RLE. He denies head trauma, fatigue, dizziness, or confusion at the time of the falls. On exam he is resting comfortably in bed. He is alert and oriented x 3. RLE noted to be flexed and externally rotated at the hip. Skin is intact to RLE with no ecchymosis, erythema, or petechiae noted. Knee and ankle ROM intact. Sensation intact. Neurovascularly intact to RLE. XR/XR hip complete RT IMPRESSION: Acute, traumatic, mildly displaced, intertrochanteric fracture of the right proximal femur. D/ / 01/14/2018 11:06:28 Marion Pena MD / arabella Assessment: Acute, traumatic, mildly displaced, intertrochanteric fracture of the right proximal femur Plan: Discussed with Dr. Garcia. Pending medical clearance, patient to have intramedullary nailing of the right femur on Tuesday 01/16. Risks and benefits of surgery discussed with patient. He states that he makes his own medical decisions. Informed consent obtained after all questions answered. Pain control as indicated via hospitalist. Patient to be NWB to the RLE. NPO after midnight Sunday night for surgery Sunday. Thank you for this consultation. Past Med Surg Social Fam HX - Past Medical History Medical history: arthritis, cirrhosis, COPD, coronary artery disease, GERD, hepatitis, hyperlipidemia, hypertension, liver disease, myocardial infarction, peripheral artery disease, renal disease, other Psychiatric history: anxiety - Past Surgical History Surgical History: no surgical history - Social History Smoking Status: Former smoker Smokeless Tobacco Status: Yes Alcohol use: none Drug use: none Medications and Allergies Albuterol Sulfate [Albuterol Inhaler] 2 puff IH Q6HR PRN 11/10/16 [History] Atorvastatin Calcium [Lipitor] 40 mg PO HS 11/10/16 [History] Docusate Sodium [Dok] 100 mg PO BID PRN 11/10/16 [History] Furosemide [Lasix] 40 mg PO DAILY 11/10/16 [History] Guaifenesin [Mucus Relief] 400 mg PO BID PRN 11/10/16 [History] Ipratropium/Albuterol Neb [Duoneb] 3 ml IH Q6HR PRN 11/10/16 [History] Isosorbide MONOnitrate (24 HR) [Imdur] 30 mg PO DAILY 11/10/16 [History] LORazepam [Ativan] 0.5 mg PO BID 11/10/16 [History] Melatonin 3 mg PO HS 11/10/16 [History] Methocarbamol [Robaxin-750] 750 mg PO QID PRN 11/10/16 [History] Omeprazole [PriLOSEC] 20 mg PO DAILY 11/10/16 [History] Polyvinyl Alcohol [Artificial Tears] 1 drop BOTH EYES QID 11/10/16 [History] Ranitidine HCl [Acid Telecommunications Engineer] 150 mg PO BID 11/10/16 [History] Acetaminophen [Tylenol] 1,000 mg PO BID PRN 01/22/17 [History] Multivitamin [Multi-Day Vitamins] 1 each PO DAILY 01/22/17 [History] Olodaterol HCl [Striverdi Respimat] 2 puff IH DAILY 01/22/17 [History] Aspirin [Lo-Dose Aspirin EC] 81 mg PO DAILY 10/01/17 [History] Calcium Carbonate/Vitamin D3 [Calcium 500 + Vit D Caplet] 1 tab PO BID 10/01/17 [History] Carvedilol 3.125 mg PO BID 10/01/17 [History] Cetirizine HCl [All Day Allergy] 10 mg PO DAILY 10/01/17 [History] Digoxin [Lanoxin] 0.25 mg PO DAILY 10/01/17 [History] Diltiazem HCl [Diltiazem 24Hr Cd] 240 mg PO DAILY 10/01/17 [History] 3 Allergy/AdvReac Type Severity Reaction Status Date / Time acetaminophen [From Vicodin] Allergy See Verified 01/14/18 11:37 Comments hydrocodone [From Vicodin] Allergy See Verified 01/14/18 11:37 Comments moxifloxacin Allergy See Verified 01/14/18 11:37 Comments All Systems Reviewed: The remainder of the systems were reviewed and are negative Physical Exam - Constitutional Vitals: Temp Pulse Resp BP Pulse Ox 98.1 F 73 18 158/73 100 01/14/18 14:52 01/14/18 14:52 01/14/18 14:52 01/14/18 14:52 01/14/18 14:52 Results - Labs Result Diagrams: 01/14/18 11:00 01/14/18 11:00 Labs: Abnormal lab results WBC 13.0 K/mcL (4.3-11.1) H 01/14/18 11:00 RBC 2.50 M/mcL (4.19-5.50) L 01/14/18 11:00 Hgb 6.7 g/dL (12.9-16.9) L 01/14/18 11:00 Hct 20.8 % (37.5-50.1) L 01/14/18 11:00 MCH 26.8 pg (28.0-33.3) L 01/14/18 11:00 RDW 14.9 % (11.5-14.5) H 01/14/18 11:00 MPV 9.2 fL (9.4-12.4) L 01/14/18 11:00 Monocytes # 2.2 K/mcL (0.0-1.3) H 01/14/18 11:00 Eosinophils # 0.7 K/mcL (0.0-0.6) H 01/14/18 11:00 PT 14.4 Seconds (9.4-12.1) H 01/14/18 11:00 Sodium 120 mEq/L (136-145) L* 01/14/18 11:00 Chloride 78 mEq/L (98-107) L 01/14/18 11:00 Carbon Dioxide 37 mEq/L (23-29) H 01/14/18 11:00 Glucose 132 mg/dL (70-105) H 01/14/18 11:00 Calculated Osmolality 251 (280-300) L 01/14/18 11:00 Calcium 8.5 mg/dL (8.6-10.3) L 01/14/18 11:00 B-Natriuretic Peptide 112 pg/mL (Less than 100) H 01/14/18 11:00 All other labs normal. Consult Discharge Plan - Plan [facility]errals: [facility]Primary Care Provider[facility] -
[2018-01-14] MEDS: Artificial Tears SOLN 15 ML BOTTLE BOTH EYES SCH ×2 (15:59→20:02)
[2018-01-14] MEDS ORDERED: Ipratropium/Albuterol Neb 3 ML IH PRN (16:00)
[2018-01-14] MEDS ORDERED: hydrALAZINE 10 MG TABLET PO PRN (18:59)
[2018-01-14] MEDS: 0.9 % Sodium Chloride 1,000 ML IVC SCH (19:02)
[2018-01-14 19:31] LABS: Hematocrit 27.2 % (37.5-50.1)
[2018-01-14 19:32] LABS: Hemoglobin 8.8 g/dL (12.9-16.9)
[2018-01-14 19:48] LABS: BUN/Creatinine Ratio 17 (6-26); Blood Urea Nitrogen 14 mg/dL (8-23); Carbon Dioxide 37 mEq/L (23-29); Chloride 83 mEq/L (98-107); Glucose 175 mg/dL (70-105); Osmolality,Calculated 265 (280-300); Potassium 5.1 mEq/L (3.5-5.1); Sodium 125 mEq/L (136-145); eGFR For African Americans > 60 (> 60); eGFR For Non-African Americans > 60 (> 60)
[2018-01-14] MEDS: *HR* LORazepam 0.5 MG TABLET PO SCH (20:01)
[2018-01-14] MEDS: Famotidine 20 MG TABLET PO SCH (20:01)
[2018-01-14] MEDS: Melatonin 3 MG TABLET PO SCH (20:01)
[2018-01-15 01:33] LABS: Hematocrit 25.5 % (37.5-50.1); Hemoglobin 8.3 g/dL (12.9-16.9); Immature Granulocytes % 1.3 % (0-4); Lymphocytes # 0.9 K/mcL (0.6-4.6); Lymphocytes % 8.2 %; Mean Corpuscular HGB Conc 32.5 g/dL (31.6-35.5); Mean Corpuscular Hemoglobin 26.8 pg (28.0-33.3); Mean Corpuscular Volume 82.3 fL (83.0-100.0); Mean Platelet Volume 9.1 fL (9.4-12.4); Monocytes # 0.8 K/mcL (0.0-1.3); Monocytes % 7.5 %; Neutrophils # 9.3 K/mcL (1.6-8.9); Platelet Count 305 K/mcL (140-400); Red Cell Distribution Width 14.6 % (11.5-14.5)
[2018-01-15 01:51] LABS: BUN/Creatinine Ratio 19 (6-26); Blood Urea Nitrogen 15 mg/dL (8-23); Calcium 8.8 mg/dL (8.6-10.3); Carbon Dioxide 36 mEq/L (23-29); Chloride 84 mEq/L (98-107); Glucose 176 mg/dL (70-105); Osmolality,Calculated 265 (280-300); Potassium 4.9 mEq/L (3.5-5.1); Sodium 125 mEq/L (136-145); eGFR For African Americans > 60 (> 60); eGFR For Non-African Americans > 60 (> 60)
[2018-01-15 08:39] LABS: Hematocrit 24.2 % (37.5-50.1)
[2018-01-15] MEDS ORDERED: Furosemide 40 MG TABLET PO SCH (09:00)
[2018-01-15] MEDS ORDERED: (Olodaterol Hcl [Striverdi Respimat] 2 PUFF) IH SCH (09:00)
[2018-01-15] MEDS: 0.9 % Sodium Chloride 1,000 ML IVC SCH ×2 (09:17→22:40)
[2018-01-15] MEDS: *HR* Digoxin 0.25 MG TABLET PO SCH (09:18)
[2018-01-15] MEDS: Diltiazem CD (24hr) 240 MG CAPSULE PO SCH (09:18)
[2018-01-15] MEDS: Famotidine 20 MG TABLET PO SCH ×2 (09:18→22:12)
[2018-01-15] MEDS: *HR* LORazepam 0.5 MG TABLET PO SCH ×2 (09:18→22:12)
[2018-01-15] MEDS: Cholecalciferol (D-3) 1,000 UNIT TABLET PO SCH (09:18)
[2018-01-15] MEDS: Multivit/Ca/Min/Fe/FA 1 TAB TABLET PO SCH (09:18)
[2018-01-15] MEDS: Isosorbide MONOnitrate (24 HR) 30 MG TAB.ER.24H PO SCH (09:18)
[2018-01-15] MEDS: Artificial Tears SOLN 15 ML BOTTLE BOTH EYES SCH ×4 (09:24→22:42)
--- NOTE | 2018-01-15 14:15 | Internal Med Progress Note ---
Date of Encounter: 01/15/18 Time of Encounter: 14:13 - Assessment and plan (1) Closed right hip fracture Current Visit: Yes Status: Acute Assessment and plan: Mechanical fall. Poss related to weakness, deconditioning, Hyponatremia may be causative or may have dev afterward. - Ortho consulted, recommendations appreciated - Plan for surgery Sun, 01/16 Qualifiers: Encounter type: initial encounter Qualified Code(s): S72.001A - Fracture of unspecified part of neck of right femur, initial encounter for closed fracture (2) Hyponatremia Current Visit: Yes Status: Acute Assessment and plan: Suspect hypovolemic hyponatremia. He appeared dehydrated on admission - We will replace with normal saline. Cautiously given his history of CHF and cirrhosis and the fact that he also received blood. Monitor. - Improved from 120 to 125 but last reading was also 125. - Hold Lasix. - Continue gentle IV fluid hydration (3) Acute blood loss anemia Current Visit: No Status: Acute Assessment and plan: Patient with hip fracture after fall. Also has history of lower GI bleed in 2016 had colonoscopy showing angiodysplagia, diverticulosis and internal hemorrhoids. He has atrial fibrillation on aspirin at home only. Suspect acute anemia from hematoma of fall vs recurrent GIB - Hold ASA. - Will continue to cycle H&H, transfuse with PRBC as needed. - Will consult GI if no improvement. (4) Chronic respiratory failure with hypoxia Current Visit: Yes Status: Chronic Assessment and plan: On 3L O2 at home, currently at baseline. (5) GI bleed Current Visit: No Status: Acute Assessment and plan: See above. Has history of LGIB: colonoscopy done in Sep 2017 showed angiodysplasia, diverticulosis, internal hemorrhoids. Will monitor H&H for signs of bleed. Currently denies any melena, hematochezia, abdominal pain, n/v. Qualifiers: GI bleed type/associated pathology: unspecified gastrointestinal hemorrhage type Qualified Code(s): K92.2 - Gastrointestinal hemorrhage, unspecified (6) Peripheral vascular disease Current Visit: No Status: Acute Assessment and plan: Aspirin needs held currently because of acute blood loss anemia (7) Afib Current Visit: No Status: Chronic Assessment and plan: Currently rate controlled - Continue Digoxin - Continue Coreg - Not on anticoagulation at home - known history of LGIB - Takes aspirin at home - held currently for acute blood loss anemia Qualifiers: Atrial fibrillation type: unspecified Qualified Code(s): I48.91 - Unspecified atrial fibrillation (8) COPD (chronic obstructive pulmonary disease) Current Visit: No Status: Chronic Qualifiers: COPD type: unspecified COPD Qualified Code(s): J44.9 - Chronic obstructive pulmonary disease, unspecified (9) GERD (gastroesophageal reflux disease) Current Visit: No Status: Chronic Assessment and plan: ppi Qualifiers: Esophagitis presence: esophagitis presence not specified Qualified Code(s) : K21.9 - Gastro-esophageal reflux disease without esophagitis - Subjective Interval history: Patient shortness of breath no wback at baseline Does not have any pain at hip denies any melena, hematochezia, hematemesis, n/v, abdominal pain. - Constitutional Vitals: Temp Pulse Resp BP Pulse Ox 97.6 F 73 18 159/64 93 01/15/18 11:30 01/15/18 11:30 01/15/18 11:30 01/15/18 11:30 01/15/18 11:30 General appearance: Present: A&O X 3, no acute distress Exam: - Head Head exam: Present: atraumatic, normocephalic - Eye Eye exam: Present: PERRL, conjuntiva pink, sclera anicteric Pupils: Present: PERRL - ENT ENT exam: Present: mucous membranes moist - Neck Neck exam general surgery: Present: supple, trachea midline. Absent: lymphadenopathy - Respiratory Respiratory exam: Present: decreased breath sounds - Cardiovascular Cardiovascular exam: Present: RRR, +S1, +S2. Absent: diastolic murmur, gallop, rubs, systolic murmur - GI/Abdominal GI/Abdominal exam: Present: normal bowel sounds, soft, no peritoneal signs. Absent: distended, tenderness - Extremities Exam Additional comments: ecchymoses left rifht inner thigh, ttp - Neurological Exam Neurological exam: Present: CN II-XII intact, oriented X3, no focal deficits. Absent: pronater drift, facial droop, speech deficit - Skin Skin exam: Present: warm Internal Medicine: Result - Labs CBC & Chem 7: 01/15/18 07:36 01/15/18 01:20 Labs: Short CBC 01/14/18 01/15/18 01/15/18 Range/Units 19:17 01:20 07:36 WBC 11.2 H (4.3-11.1) K/mcL Hgb 8.8 L D 8.3 L 8.0 L (12.9-16.9) g/dL Hct 27.2 L 25.5 L 24.2 L (37.5-50.1) % Plt Count 305 (140-400) K/mcL Neutrophils # 9.3 H (1.6-8.9) K/mcL BMP 01/14/18 01/15/18 19:17 01:20 Sodium 125 L 125 L Potassium 5.1 4.9 Chloride 83 L 84 L Carbon Dioxide 37 H 36 H BUN 14 15 Creatinine 0.81 0.81 Glucose 175 H 176 H Calcium 9.0 8.8 - ABG Interpretation ABG results: PT/INR, D-dimer PT 14.4 Seconds (9.4-12.1) H 01/14/18 11:00 - VTE Documentation of Mechanical Device: Intermittent pneumatic compression device Consult Discharge Plan - Plan [facility]errals: [facility] [Primary Care Provider[facility] -
[2018-01-15] MEDS: Albuterol 2.5 MG/3 ML NEBULIZER IH SCH ×2 (15:58→21:42)
[2018-01-15 16:12] LABS: Hematocrit 25.8 % (37.5-50.1); Hemoglobin 8.5 g/dL (12.9-16.9)
--- NOTE | 2018-01-15 17:16 | Orthopedics Progress Note ---
Date of Encounter: 01/15/18 Time of Encounter: 17:14 - Assessment and Plan (1) Fracture of femur, intertrochanteric, right, closed Current Visit: Yes Status: Acute Plan for surgery tomorrow with . NPO, continue pain management per medical team. NWB to RLE. Continue mechanical DVT prophylaxis. Qualifiers: Encounter type: initial encounter Fracture alignment: displaced Qualified Code(s): S72.141A - Displaced intertrochanteric fracture of right femur, initial encounter for closed fracture Subjective Principal diagnosis: Right hip fracture Interval history: Patient A&O x 3, afebrile. Sodium low today but gradually improving. H/H remains low but stable, hospitalist considering GI consult if suspected GI bleed. RLE: Minimal swelling, shortened appearance. No erythema. No obvious lesions or abrasions. Skin soft to touch and non-tender. No calf tenderness. ROM limited. NV intact distally. Plan: OR 01/16/18 if medically cleared. nPO after midnight Objective Vital signs: Vital Signs Temp Pulse Resp BP Pulse Ox 01/15/18 16:20 97.6 F 62 16 154/64 100 01/15/18 11:30 97.6 F 73 18 159/64 93 01/15/18 08:15 98.1 F 82 17 179/87 94 01/15/18 02:18 15 97 01/14/18 23:18 98.2 F 85 14 156/61 94 01/14/18 20:24 98 F 68 16 174/67 95 01/14/18 18:05 98.3 F 70 18 165/75 94 Intake and Output 01/15/18 01/15/18 01/15/18 07:59 15:59 23:59 Intake Total 500 / 500 1000 / 1000 525 / 525 Output Total 650 / 650 550 / 550 450 / 450 Balance -150 / -150 450 / 450 75 / 75 Intake: IV Fluids 1000 / 1000 525 / 525 0.9 % Sodium Chloride 1,000 ML 1000 / 1000 525 / 525 @ 75 mls/hr IVC .[id number] FORMERLY [facility], 1928–1983 Rx #:[id number] Oral 500 / 500 Output: Urine 650 / 650 550 / 550 450 / 450 - Labs CBC & BMP: 01/16/18 04:09 01/16/18 04:09 Labs: Abnormal lab results WBC 11.2 K/mcL (4.3-11.1) H 01/15/18 01:20 RBC 3.10 M/mcL (4.19-5.50) L 01/15/18 01:20 Hgb 8.5 g/dL (12.9-16.9) L 01/15/18 15:51 Hct 25.8 % (37.5-50.1) L 01/15/18 15:51 MCV 82.3 fL (83.0-100.0) L 01/15/18 01:20 MCH 26.8 pg (28.0-33.3) L 01/15/18 01:20 RDW 14.6 % (11.5-14.5) H 01/15/18 01:20 MPV 9.1 fL (9.4-12.4) L 01/15/18 01:20 Neutrophils # 9.3 K/mcL (1.6-8.9) H 01/15/18 01:20 PT 14.4 Seconds (9.4-12.1) H 01/14/18 11:00 Sodium 125 mEq/L (136-145) L 01/15/18 01:20 Chloride 84 mEq/L (98-107) L 01/15/18 01:20 Carbon Dioxide 36 mEq/L (23-29) H 01/15/18 01:20 Glucose 176 mg/dL (70-105) H 01/15/18 01:20 Calculated Osmolality 265 (280-300) L 01/15/18 01:20 B-Natriuretic Peptide 112 pg/mL (Less than 100) H 01/14/18 11:00 - VTE Documentation of Mechanical Device: Intermittent pneumatic compression device Consult Discharge Plan - Plan [facility]errals: [facility]Primary Care Provider[facility] - Prescriptions: OxyCODONE Immed Rel [Roxicodone 5 MG] 5 mg PO Q6HR PRN 7 Days #28 tablet PRN Reason: Severe Pain
--- NOTE | 2018-01-15 19:13 | Anesthesia Evaluation PreOp ---
<Stefano Liang - Last Filed: 01/15/18 19:59> Date of Encounter: 01/15/18 Time of Encounter: 19:11 - Past History Planned Operation: Right Hip TFN Cardiac History: [place], CHF, HTN, Hyperlipidemia, Arrhythmia (Hx AF), Other (PVD) Pulmonary History: Former smoker, COPD (on O2 3L NC), Other (Cronic resp failure with hypoxia) SIGNAL MANAGER History: Denies Any Significant HX Other Medical History: Hepatic (cirrhosis fom ETOH abuse, Hepatitis), Renal (CRD ), GERD, Other (Hyponatremia @ 125, Hg-8.5 Hospitalist not clearing Patient until sodium normalized and Hemoglobin stable.) Anesthesia History: No Prior Anesthetic Complications, Past Anesthesia (EGD) Alcohol Use: none Drug use: none Medications and Allergies Albuterol Sulfate [Albuterol Inhaler] 2 puff IH Q6HR PRN 11/10/16 [History] Atorvastatin Calcium [Lipitor] 40 mg PO HS 11/10/16 [History] Docusate Sodium [Dok] 100 mg PO BID PRN 11/10/16 [History] Furosemide [Lasix] 40 mg PO DAILY 11/10/16 [History] Guaifenesin [Mucus Relief] 400 mg PO BID PRN 11/10/16 [History] Ipratropium/Albuterol Neb [Duoneb] 3 ml IH Q6HR PRN 11/10/16 [History] Isosorbide MONOnitrate (24 HR) [Imdur] 30 mg PO DAILY 11/10/16 [History] LORazepam [Ativan] 0.5 mg PO BID 11/10/16 [History] Melatonin 3 mg PO HS 11/10/16 [History] Methocarbamol [Robaxin-750] 750 mg PO QID PRN 11/10/16 [History] Omeprazole [PriLOSEC] 20 mg PO DAILY 11/10/16 [History] Polyvinyl Alcohol [Artificial Tears] 1 drop BOTH EYES QID 11/10/16 [History] Ranitidine HCl [Acid Parasitology Teacher] 150 mg PO BID 11/10/16 [History] Acetaminophen [Tylenol] 1,000 mg PO BID PRN 01/22/17 [History] Multivitamin [Multi-Day Vitamins] 1 each PO DAILY 01/22/17 [History] Olodaterol HCl [Striverdi Respimat] 2 puff IH DAILY 01/22/17 [History] Aspirin [Lo-Dose Aspirin EC] 81 mg PO DAILY 10/01/17 [History] Calcium Carbonate/Vitamin D3 [Calcium 500 + Vit D Caplet] 1 tab PO BID 10/01/17 [History] Carvedilol 3.125 mg PO BID 10/01/17 [History] Cetirizine HCl [All Day Allergy] 10 mg PO DAILY 10/01/17 [History] Digoxin [Lanoxin] 0.25 mg PO DAILY 10/01/17 [History] Diltiazem HCl [Diltiazem 24Hr Cd] 240 mg PO DAILY 10/01/17 [History] OxyCODONE Immed Rel [Roxicodone 5 MG] 5 mg PO Q6HR PRN 7 Days #28 tablet [Rx] 3 Allergy/AdvReac Type Severity Reaction Status Date / Time acetaminophen [From Vicodin] Allergy See Verified 01/14/18 11:37 Comments hydrocodone [From Vicodin] Allergy See Verified 01/14/18 11:37 Comments moxifloxacin Allergy See Verified 01/14/18 11:37 Comments - Meds/Allergy Pre-op Review Medications Reviewed: Yes Allergies Reviewed: Yes Beta Blockers on Current Med List: Yes If Beta Blockers taken, Date/Time (Last Dose taken): 16:06 01/15/18 Anesthesia Results - Labs 01/15/18 15:51 01/15/18 01:20 - Imaging EKG: report reviewed (SR) Anesthesia Exam Vital Signs/O2 Sat, Most Current Temp Pulse Resp BP Pulse Ox 97.6 F 62 16 154/64 100 01/15/18 16:20 01/15/18 16:20 01/15/18 16:20 01/15/18 16:20 01/15/18 16:20 - HEENT Pupil (Motor): Pupils equal, EOMI Mallampati: II Teeth: Edentulous Denture Type: Upper: Complete, Lower: Complete Oral Opening: Greater than 3 - SIGNAL MANAGER LOC: Oriented SIGNAL MANAGER Motor: Normal RUE, Normal LUE, Normal RLE, Normal LLE, Normal Face SIGNAL MANAGER Sensory: Normal: RUE, LUE, RLE, LLE, Face Anesthesia Assess/Plan ASA Score: 3 Modified Union Scale for Level of Consciousness: Cooperative, oriented, and tranquil Anesthetic Plan: General Autologous Blood: Yes Monitoring Plan: Standard Monitors Recovery Plan: PACU <Mattie Wick - Last Filed: 01/16/18 15:13> Date of Encounter: 01/16/18 - Past History Other Medical History: Hepatic (cirrhosis fom ETOH abuse, Hepatitis C), Bleeding (GI bleed - hasn't been worked up yet but patient was transfused 2 U) - Meds/Allergy Pre-op Review If Beta Blockers taken, Date/Time (Last Dose taken): 16:06 01/15/18; being held today Anesthesia Results - Labs 01/16/18 04:09 01/16/18 04:09 - Imaging Additional studies: Last Vital Signs Temp 97.9 F 01/16/18 07:40 Pulse 55 01/16/18 07:40 Resp 18 01/16/18 11:09 BP 155/66 01/16/18 07:40 Pulse Ox 96 01/16/18 11:09 Anesthesia Exam Weight: 77 kg NPO (# of Hours): > 8 hrs
[2018-01-15] MEDS: Melatonin 3 MG TABLET PO SCH (22:12)
[2018-01-15 22:19] LABS: Hematocrit 24.6 % (37.5-50.1)
[2018-01-16] MEDS: Albuterol 2.5 MG/3 ML NEBULIZER IH SCH ×4 (04:10→21:35)
[2018-01-16 04:30] LABS: Basophils % 0.4 %; Eosinophils # 0.3 K/mcL (0.0-0.6); Eosinophils % 2.2 %; Hemoglobin 7.7 g/dL (12.9-16.9); Immature Granulocytes % 0.9 % (0-4); Lymphocytes # 2.7 K/mcL (0.6-4.6); Mean Corpuscular HGB Conc 32.1 g/dL (31.6-35.5); Mean Corpuscular Hemoglobin 27.2 pg (28.0-33.3); Mean Corpuscular Volume 84.8 fL (83.0-100.0); Mean Platelet Volume 9.3 fL (9.4-12.4); Monocytes # 2.2 K/mcL (0.0-1.3); Monocytes % 19.1 %; Platelet Count 333 K/mcL (140-400); Red Blood Count 2.83 M/mcL (4.19-5.50); Red Cell Distribution Width 15.1 % (11.5-14.5); Segmented Neutrophils % 53.4 %
[2018-01-16 04:31] LABS: Hematocrit 24.9 % (37.5-50.1)
[2018-01-16 04:34] LABS: Basophils # 0.1 K/mcL (0.0-0.2)
[2018-01-16 04:47] LABS: BUN/Creatinine Ratio 16 (6-26); Blood Urea Nitrogen 13 mg/dL (8-23); Calcium 8.2 mg/dL (8.6-10.3); Carbon Dioxide 37 mEq/L (23-29); Chloride 94 mEq/L (98-107); Glucose 114 mg/dL (70-105); Osmolality,Calculated 277 (280-300); Potassium 4.1 mEq/L (3.5-5.1); Sodium 133 mEq/L (136-145); eGFR For African Americans > 60 (> 60); eGFR For Non-African Americans > 60 (> 60)
[2018-01-16 05:03] LABS: Basophilic Stippling 1+ (Not Present); Platelet Estimate Normal (Normal)
--- NOTE | 2018-01-16 06:21 | Electrocardiograph Report ---
[place] [id number] Test Date: 2018-01-14 Pat Name: Stefano Guardado Department: 102 Room: 3A Gender: M Solar Sales Ambassador: : 1945 Requested By: Wolf Hooks Order Number: [id number] Reading MD: Kelvin Guan MD Measurements Intervals [place] Rate: 72 P: 63 NM: 161 QRS: 48 QRSD: 91 T: 46 QT: 360 QTc: 384 Interpretive Statements SINUS RHYTHM WITH SINUS ARRHYTHMIA BASELINE ARTIFACT Electronically Signed On 01-16-2018 6:19:52 EDT by Kelvin Guan MD
--- NOTE | 2018-01-16 08:15 | Event Note ---
Date of Encounter: 01/16/18 Time of Encounter: 08:14 I spoke with today regarding patient's medical clearance for OR today. Patient's sodium 133 his AM and H/H stable. Per hospitalist - ok to proceed with surgery today.
[2018-01-16] MEDS: *HR* Digoxin 0.25 MG TABLET PO SCH (09:35)
[2018-01-16] MEDS: Artificial Tears SOLN 15 ML BOTTLE BOTH EYES SCH ×4 (09:49→20:08)
[2018-01-16] MEDS: *HR* LORazepam 0.5 MG TABLET PO SCH ×2 (09:50→20:08)
[2018-01-16] MEDS: Cholecalciferol (D-3) 1,000 UNIT TABLET PO SCH (09:50)
[2018-01-16] MEDS: Multivit/Ca/Min/Fe/FA 1 TAB TABLET PO SCH (09:50)
[2018-01-16] MEDS: Diltiazem CD (24hr) 240 MG CAPSULE PO SCH (09:50)
[2018-01-16] MEDS: Famotidine 20 MG TABLET PO SCH ×2 (09:50→20:08)
[2018-01-16] MEDS: Isosorbide MONOnitrate (24 HR) 30 MG TAB.ER.24H PO SCH (09:53)
[2018-01-16] MEDS: 0.9 % Sodium Chloride 1,000 ML IVC SCH ×2 (12:02→17:38)
--- NOTE | 2018-01-16 13:47 | Internal Med Progress Note ---
Date of Encounter: 01/16/18 Time of Encounter: 13:45 - Assessment and plan (1) Closed right hip fracture Current Visit: Yes Status: Acute Assessment and plan: Mechanical fall. Poss related to weakness, deconditioning, Hyponatremia may be causative or may have dev afterward. - Ortho consulted, recommendations appreciated - Plan for surgery Sun, 01/16 Labs stable H&H 8.0, sodium improved. Okay for surgery today. Qualifiers: Encounter type: initial encounter Qualified Code(s): S72.001A - Fracture of unspecified part of neck of right femur, initial encounter for closed fracture (2) Hyponatremia Current Visit: Yes Status: Acute Assessment and plan: Suspect hypovolemic hyponatremia. He appeared dehydrated on admission - We will replace with normal saline. Cautiously given his history of CHF and cirrhosis and the fact that he also received blood. Monitor. - Improved - Hold Lasix. - Continue gentle IV fluid hydration (3) Acute blood loss anemia Current Visit: No Status: Acute Assessment and plan: Patient with hip fracture after fall. Also has history of lower GI bleed in 2016 had colonoscopy showing angiodysplagia, diverticulosis and internal hemorrhoids. He has atrial fibrillation on aspirin at home only. Suspect acute anemia from hematoma of fall vs recurrent GIB - Hold ASA. - Will continue to cycle H&H, transfuse with PRBC as needed. - Will consult GI if no improvement. Stable at 8.0 today (4) Chronic respiratory failure with hypoxia Current Visit: Yes Status: Chronic Assessment and plan: On 3L O2 at home, currently at baseline. (5) GI bleed Current Visit: No Status: Acute Assessment and plan: See above. Has history of LGIB: colonoscopy done in Sep 2017 showed angiodysplasia, diverticulosis, internal hemorrhoids. Will monitor H&H for signs of bleed. Currently denies any melena, hematochezia, abdominal pain, n/v. Qualifiers: GI bleed type/associated pathology: unspecified gastrointestinal hemorrhage type Qualified Code(s): K92.2 - Gastrointestinal hemorrhage, unspecified (6) Peripheral vascular disease Current Visit: No Status: Acute Assessment and plan: Aspirin needs held currently because of acute blood loss anemia (7) Afib Current Visit: No Status: Chronic Assessment and plan: Currently rate controlled - Continue Digoxin - Continue Coreg - Not on anticoagulation at home - known history of LGIB - Takes aspirin at home - held currently for acute blood loss anemia HR running 55 which can be normal for patient. He is asymptomatic. Coreg held this AM and will monitor post op Qualifiers: Atrial fibrillation type: unspecified Qualified Code(s): I48.91 - Unspecified atrial fibrillation (8) COPD (chronic obstructive pulmonary disease) Current Visit: No Status: Chronic Qualifiers: COPD type: unspecified COPD Qualified Code(s): J44.9 - Chronic obstructive pulmonary disease, unspecified (9) GERD (gastroesophageal reflux disease) Current Visit: No Status: Chronic Assessment and plan: ppi Qualifiers: Esophagitis presence: esophagitis presence not specified Qualified Code(s) : K21.9 - Gastro-esophageal reflux disease without esophagitis - Subjective Interval history: Does not have any pain at hip denies any melena, hematochezia, hematemesis, n/v, abdominal pain. Scheduled for surgery today. - Constitutional Vitals: Temp Pulse Resp BP Pulse Ox 97.9 F 55 18 155/66 96 01/16/18 07:40 01/16/18 07:40 01/16/18 11:09 01/16/18 07:40 01/16/18 11:09 General appearance: Present: A&O X 3, no acute distress Exam: - Head Head exam: Present: atraumatic, normocephalic - Eye Eye exam: Present: PERRL, conjuntiva pink, sclera anicteric Pupils: Present: PERRL - ENT ENT exam: Present: mucous membranes moist - Neck Neck exam general surgery: Present: supple, trachea midline. Absent: lymphadenopathy - Respiratory Respiratory exam: Present: decreased breath sounds - Cardiovascular Cardiovascular exam: Present: RRR, +S1, +S2. Absent: diastolic murmur, gallop, rubs, systolic murmur - GI/Abdominal GI/Abdominal exam: Present: normal bowel sounds, soft, no peritoneal signs. Absent: distended, tenderness - Extremities Exam Additional comments: ecchymoses left rifht inner thigh, ttp - Neurological Exam Neurological exam: Present: CN II-XII intact, oriented X3, no focal deficits. Absent: pronater drift, facial droop, speech deficit - Skin Skin exam: Present: warm Internal Medicine: Result - Labs CBC & Chem 7: 01/16/18 04:09 01/16/18 04:09 Labs: Short CBC 01/15/18 01/15/18 01/16/18 Range/Units 15:51 22:11 04:09 WBC 11.3 H (4.3-11.1) K/mcL Hgb 8.5 L 8.0 L 7.7 L (12.9-16.9) g/dL Hct 25.8 L 24.6 L 24.0 L (37.5-50.1) % Plt Count 333 (140-400) K/mcL Neutrophils # 6.0 (1.6-8.9) K/mcL 01/16/18 Range/Units 04:09 WBC (4.3-11.1) K/mcL Hgb 8.0 L (12.9-16.9) g/dL Hct 24.9 L (37.5-50.1) % Plt Count (140-400) K/mcL Neutrophils # (1.6-8.9) K/mcL BMP 01/16/18 04:09 Sodium 133 L Potassium 4.1 Chloride 94 L Carbon Dioxide 37 H BUN 13 Creatinine 0.79 Glucose 114 H Calcium 8.2 L - ABG Interpretation ABG results: PT/INR, D-dimer PT 14.4 Seconds (9.4-12.1) H 01/14/18 11:00 - VTE Documentation of Mechanical Device: Intermittent pneumatic compression device Consult Discharge Plan - Plan [facility] Care Provider[facility] - Prescriptions: OxyCODONE Immed Rel [Roxicodone 5 MG] 5 mg PO Q6HR PRN 7 Days #28 tablet PRN Reason: Severe Pain
[2018-01-16] MEDS ORDERED: *HR* FentaNYL (PF) 100 MCG/2 ML VIAL ONE (13:54)
[2018-01-16] MEDS ORDERED: Lidocaine -MPF 2% 2 ML VIAL ONE (14:06)
[2018-01-16] MEDS ORDERED: *HR* Propofol 200 MG/20 ML VIAL IVP ONE (15:02)
[2018-01-16] MEDS ORDERED: *HR* Rocuronium Bromide 50 MG/5 ML VIAL ONE (15:03)
[2018-01-16] MEDS ORDERED: *HR* Succinylcholine 200 MG/10 ML VIAL IVP ONE (15:03)
[2018-01-16] MEDS ORDERED: EPHEDrine 50 MG/ML VIAL ONE (15:32)
[2018-01-16] MEDS ORDERED: Ondansetron 4 MG/2 ML VIAL IVP ONE (15:42)
[2018-01-16] MEDS ORDERED: MORPHINE SUL Oral CONC 10 MG/0.5 ML ORAL.SYG SL PRN (15:42)
[2018-01-16] MEDS ORDERED: Ondansetron 4 MG/2 ML VIAL ONE (15:46)
[2018-01-16] MEDS ORDERED: Dexamethasone 4 MG/ML VIAL ONE (15:46)
--- NOTE | 2018-01-16 15:50 | Orthopedic Operative Note ---
Date of procedure: 01/16/18 Pre-op diagnosis: Right intertrochanteric hip fracture Post-op diagnosis: same Procedure: Procedure: Right hip open reduction intramedullary nail fixation Estimated blood loss: 50 cc Hardware: Metal: 10 x 130 Synthes TFN, 95 helical blade, 36 distal locking bolt Operative procedure: The patient was brought to the operating room and placed on the operating room table. After general anesthesia was administered the well leg was place in the well leg jarrell and the operative leg was placed in the fracture leg jarrell. All pressure points were padded appropriately. The operative extremity was prepped and draped in the sterile surgical fashion patient received IV antibiotic prior to skin incision. A standard direct lateral approach was made over the entry point of the greater trochanter, the incision was made through the skin and subcutaneous tissue hemostasis was obtained with Bovie cautery. Using careful sharp dissection the fascia was identified and incised, flouroscopic assistance was used to identify the entry point. The guidepin was placed at the entry point using fluroscopic assistance, it was over reamed with the proximal reamer. The 10 x 130 degree nail was placed through the entry hole, across the fracture site into the distal fragment. the position was confirmed with fluroscopy. A guide pin was placed through the proximal locking guide from the lateral femur through the nail across the fracture site into the femoral head, it was over reamed with the reamer. The 95 mm helical blade was placed over the guide pin through the nail into the femoral head, locked in place with the proximal locking bolt. 36 mm Distal locking bolt was placed through the distal locking guide. position of hardware and fracture reduction found to be acceptable with fluroscopic assistance. The wound was irrigated. Fascia was closed with a running #2 PDS suture. The deep tissue was irrigated and closed deep with #1 PDS suture superficially with 0 PDS suture and skin was closed with Dermabond. The patient was placed in a sterile dressing The patient was extubated and transferred to the recovery room in stable condition. Anesthesia: GETA Surgeon: Mario Garcia Was there an insurance account assistant present: Yes Glass Polisher: Jena Gonzalez Estimated blood loss (cc): 50 Condition: stable Disposition: PACU
--- NOTE | 2018-01-16 16:47 | Anesthesia Evaluation Post Op ---
Date of Encounter: 01/16/18 Time of Encounter: 16:47 - Vital Signs Vital Signs: Last Vital Signs Temp 98.3 F 01/16/18 16:40 Pulse 69 01/16/18 16:40 Resp 20 01/16/18 16:40 BP 163/69 01/16/18 16:40 Pulse Ox 97 01/16/18 16:40 - Lungs Lungs: Clear Ascult./Percussion - Airway Airway: Non-obstructed - Cardiovascular Regular Rate - Mental Status Mental Status: Alert & Oriented, Answers Appropriately - Pain Pain Scale: 2 - Nausea Vomiting Nausea Vomiting: Not Present - Hydration Hydration: Ice chips - Discharge PostOp Status: Transfer Patient to floor
[2018-01-16] MEDS ORDERED: CeFAZolin Premix DUPLEX 2,000 MG/50 ML BAG IVPB SCH (17:18)
[2018-01-16] MEDS ORDERED: Naloxone 0.4 MG/ML INJ IVP PRN ×2 (17:18)
[2018-01-16] MEDS ORDERED: Methocarbamol 750 MG TABLET PO PRN (17:18)
[2018-01-16] MEDS ORDERED: ceFAZolin 2,000 MG in Water for inj. (sterile) 20 ML IVP SCH (18:00)
[2018-01-16] MEDS: Melatonin 3 MG TABLET PO SCH (20:07)
[2018-01-16] MEDS: CeFAZolin Premix DUPLEX 2,000 MG/50 ML BAG IVPB SCH (20:08)
[2018-01-16] MEDS: hydrALAZINE 10 MG TABLET PO PRN (20:08)
[2018-01-17] MEDS: CeFAZolin Premix DUPLEX 2,000 MG/50 ML BAG IVPB SCH (02:51)
[2018-01-17] MEDS: Albuterol 2.5 MG/3 ML NEBULIZER IH SCH ×4 (04:11→22:41)
[2018-01-17] MEDS: 0.9 % Sodium Chloride 1,000 ML IVC SCH (05:54)
[2018-01-17] MEDS: Famotidine 20 MG TABLET PO SCH ×2 (08:50→20:42)
[2018-01-17] MEDS: Multivit/Ca/Min/Fe/FA 1 TAB TABLET PO SCH (08:51)
[2018-01-17] MEDS: Isosorbide MONOnitrate (24 HR) 30 MG TAB.ER.24H PO SCH (08:51)
[2018-01-17] MEDS: *HR* Digoxin 0.25 MG TABLET PO SCH (08:51)
[2018-01-17] MEDS: Cholecalciferol (D-3) 1,000 UNIT TABLET PO SCH (08:51)
[2018-01-17] MEDS: *HR* LORazepam 0.5 MG TABLET PO SCH ×2 (08:51→20:42)
[2018-01-17] MEDS: Diltiazem CD (24hr) 240 MG CAPSULE PO SCH (08:51)
[2018-01-17] MEDS: Artificial Tears SOLN 15 ML BOTTLE BOTH EYES SCH ×4 (08:56→20:44)
[2018-01-17 12:03] LABS: Basophils % 0.1 %; Hematocrit 25.4 % (37.5-50.1); Immature Granulocytes % 0.7 % (0-4); Lymphocytes # 1.8 K/mcL (0.6-4.6); Lymphocytes % 9.2 %; Mean Corpuscular HGB Conc 31.5 g/dL (31.6-35.5); Mean Corpuscular Hemoglobin 27.5 pg (28.0-33.3); Mean Corpuscular Volume 87.3 fL (83.0-100.0); Mean Platelet Volume 9.2 fL (9.4-12.4); Neutrophils # 15.7 K/mcL (1.6-8.9); Platelet Count 383 K/mcL (140-400); Red Blood Count 2.91 M/mcL (4.19-5.50)
[2018-01-17 12:17] LABS: BUN/Creatinine Ratio 11 (6-26); Blood Urea Nitrogen 9 mg/dL (8-23); Calcium 8.6 mg/dL (8.6-10.3); Carbon Dioxide 33 mEq/L (23-29); Chloride 94 mEq/L (98-107); Glucose 177 mg/dL (70-105); Osmolality,Calculated 275 (280-300); Potassium 4.6 mEq/L (3.5-5.1); Sodium 131 mEq/L (136-145); eGFR For African Americans > 60 (> 60); eGFR For Non-African Americans > 60 (> 60)
[2018-01-17] MEDS: *HR* OxyCODONE Immed Rel 5 MG TABLET PO PRN ×2 (16:13→22:07)
--- NOTE | 2018-01-17 16:27 | Orthopedics Progress Note ---
Date of Encounter: 01/17/18 Time of Encounter: 16:25 - Assessment and Plan (1) Fracture of femur, intertrochanteric, right, closed Current Visit: Yes Status: Acute Plan: PWB to RLE. Hip precautions, no hip ROM exercises. Use of walker recommended. Continue pain control. [facility] by medical team. H/H stable. Ortho f/up in 2 weeks, appt given to floor nurse. Orthopedics signing off. Thank you Qualifiers: Encounter type: initial encounter Fracture alignment: displaced Qualified Code(s): S72.141A - Displaced intertrochanteric fracture of right femur, initial encounter for closed fracture Subjective Principal diagnosis: Right hip fracture, s/p Right Hip IM nailing 01/16/18 Interval history: Patient A&O x 3, afebrile. . H/H remains low but stable, hospitalist following. Leukocytosis noted, likely related to post-op but recommending monitoring with medical team. RLE: Minimal swelling, . No erythema. No obvious lesions or abrasions. Dressing is C/D/I. Zipline and opsite in place. Skin soft to touch and non-tender. No calf tenderness. ROM limited. NV intact distally. Plan: PWB to RLE. Hip precautions, no hip ROM exercises. Use of walker recommended. Continue pain control. Plan [facility] if [facility] by medical team. H/H stable. Ortho f/up in 2 weeks, appt given to floor nurse. Orthopedics signing off. Thank you Objective Vital signs: Vital Signs Temp Pulse Resp BP Pulse Ox 01/17/18 16:11 24 95 01/17/18 15:26 97.7 F 64 16 160/59 98 01/17/18 11:23 19 98 01/17/18 10:40 97.5 F L 66 16 165/69 97 01/17/18 07:41 98 F 73 16 169/77 98 01/17/18 04:11 16 99 01/17/18 03:30 97.5 F L 69 14 148/63 96 01/16/18 23:24 97.8 F 66 15 160/67 98 01/16/18 21:35 16 98 01/16/18 20:05 99 01/16/18 19:49 98.3 F 72 18 183/74 97 01/16/18 18:55 98.6 F 67 18 156/71 100 01/16/18 17:55 98.4 F 68 18 171/72 97 01/16/18 17:39 98.3 F 72 18 165/72 96 01/16/18 16:55 98.4 F 68 18 158/63 98 01/16/18 16:40 98.3 F 69 20 163/69 97 01/16/18 16:30 73 20 146/61 97 Intake and Output 01/17/18 01/17/18 01/17/18 07:59 15:59 23:59 Intake Total 1000 / 1000 240 / 240 Output Total 1300 / 1300 1000 / 1000 Balance -300 / -300 -760 / -760 Intake: IV Fluids 1000 / 1000 0.9 % Sodium Chloride 1,000 ML 1000 / 1000 @ 75 mls/hr IVC .[id number] SERGEY Rx #:[id number] Oral 0 / 0 240 / 240 Output: Urine 1300 / 1300 1000 / 1000 Other: Meal Lunch Percent of Meal Consumed 50% # Voids 2 - Labs CBC & BMP: 01/17/18 11:31 01/17/18 11:31 Labs: Abnormal lab results WBC 19.6 K/mcL (4.3-11.1) H D 01/17/18 11:31 RBC 2.91 M/mcL (4.19-5.50) L 01/17/18 11:31 Hgb 8.0 g/dL (12.9-16.9) L 01/17/18 11:31 Hct 25.4 % (37.5-50.1) L 01/17/18 11:31 MCH 27.5 pg (28.0-33.3) L 01/17/18 11:31 MCHC 31.5 g/dL (31.6-35.5) L 01/17/18 11:31 RDW 15.0 % (11.5-14.5) H 01/17/18 11:31 MPV 9.2 fL (9.4-12.4) L 01/17/18 11:31 Neutrophils # 15.7 K/mcL (1.6-8.9) H 01/17/18 11:31 Monocytes # 2.0 K/mcL (0.0-1.3) H 01/17/18 11:31 Basophilic Stippling 1+ (Not Present) A 01/16/18 04:09 PT 14.4 Seconds (9.4-12.1) H 01/14/18 11:00 Sodium 131 mEq/L (136-145) L 01/17/18 11:31 Chloride 94 mEq/L (98-107) L 01/17/18 11:31 Carbon Dioxide 33 mEq/L (23-29) H 01/17/18 11:31 Glucose 177 mg/dL (70-105) H 01/17/18 11:31 POC Glucose 115 (58-89) H 01/16/18 05:38 Calculated Osmolality 275 (280-300) L 01/17/18 11:31 B-Natriuretic Peptide 112 pg/mL (Less than 100) H 01/14/18 11:00 - VTE Documentation of Mechanical Device: Intermittent pneumatic compression device Consult Discharge Plan - Plan [facility]errals: [facility] [Primary Care Provider] - Prescriptions: OxyCODONE Immed Rel [Roxicodone 5 MG] 5 mg PO Q6HR PRN 7 Days #28 tablet PRN Reason: Severe Pain
[2018-01-17] MEDS: Ipratropium/Albuterol Neb 3 ML IH PRN (17:27)
--- NOTE | 2018-01-17 17:38 | Internal Med Progress Note ---
Date of Encounter: 01/17/18 Time of Encounter: 17:35 - Assessment and plan (1) Closed right hip fracture Current Visit: Yes Status: Acute Assessment and plan: Mechanical fall. Poss related to weakness, deconditioning, Hyponatremia, possibly alcohol related - Status-post right hip IM nailing 01/16/18. Tolerated procedure well without complications. - H&H at baseline of 8.0 - Leukocytosis today of 19.6k. Possibly stress response but given severe elevation will need monitored for signs/symptoms of infection. Currently afebrile and hemodynamically stable. Plan is to discharge patient to [facility] if stable tomorrow. Currently has leukocytosis concerning for developing infection. Will obtain basic infectious workup. Qualifiers: Encounter type: initial encounter Qualified Code(s): S72.001A - Fracture of unspecified part of neck of right femur, initial encounter for closed fracture (2) Leukocytosis Current Visit: No Status: Acute Assessment and plan: Patient had leukocytosis of 13k on admission. dropped to 11.2-11.3k. Today he is 19.6k with increase in neutrophil count as well. - Could be stress response but at this level can be highly suspicious for infection. - No fever, no tachycardia, no tachypnea - He denies shortness of breath but he does exhibit some discomfort - he had hospitalization one year ago for respiratory failure from pneumonia and patient post-operatively is high risk for aspiration - Repeat chest x-ray. 1 view on 01/14 was negative. - Recheck CBC in AM. Monitor vitals closely Qualifiers: Leukocytosis type: unspecified Qualified Code(s): D72.829 - Elevated white blood cell count, unspecified (3) Hyponatremia Current Visit: Yes Status: Acute Assessment and plan: Suspect hypovolemic hyponatremia. He appeared dehydrated on admission - We will replace with normal saline. Cautiously given his history of CHF and cirrhosis and the fact that he also received blood. Monitor. - Improved after giving normal saline. - Has remote history of alcohol abuse reported to quit two years ago. His sodium went back down to 131. Will recheck in AM. (4) Acute blood loss anemia Current Visit: No Status: Acute Assessment and plan: Patient with hip fracture after fall. Also has history of lower GI bleed in 2016 had colonoscopy showing angiodysplagia, diverticulosis and internal hemorrhoids. He has atrial fibrillation on aspirin at home only. Suspect acute anemia from hematoma of fall vs recurrent GIB - Aspirin is held - Will consult GI if no improvement. Stable at 8.0 (5) Chronic respiratory failure with hypoxia Current Visit: Yes Status: Chronic Assessment and plan: On 3L O2 at home, currently at baseline. (6) GI bleed Current Visit: No Status: Acute Assessment and plan: See above. Has history of LGIB: colonoscopy done in Sep 2017 showed angiodysplasia, diverticulosis, internal hemorrhoids. Will monitor H&H for signs of bleed. Currently denies any melena, hematochezia, abdominal pain, n/v. Qualifiers: GI bleed type/associated pathology: unspecified gastrointestinal hemorrhage type Qualified Code(s): K92.2 - Gastrointestinal hemorrhage, unspecified (7) Peripheral vascular disease Current Visit: No Status: Acute Assessment and plan: Aspirin needs held currently because of acute blood loss anemia (8) Afib Current Visit: No Status: Chronic Assessment and plan: Currently rate controlled - Continue Digoxin - Continue Coreg - Not on anticoagulation at home - known history of LGIB - Takes aspirin at home - held currently for acute blood loss anemia Qualifiers: Atrial fibrillation type: unspecified Qualified Code(s): I48.91 - Unspecified atrial fibrillation (9) COPD (chronic obstructive pulmonary disease) Current Visit: No Status: Chronic Qualifiers: COPD type: unspecified COPD Qualified Code(s): J44.9 - Chronic obstructive pulmonary disease, unspecified (10) GERD (gastroesophageal reflux disease) Current Visit: No Status: Chronic Assessment and plan: ppi Qualifiers: Esophagitis presence: esophagitis presence not specified Qualified Code(s) : K21.9 - Gastro-esophageal reflux disease without esophagitis (11) History of alcohol abuse Current Visit: Yes Status: Acute Assessment and plan: Reported to quit 2 years ago. Will do CIWA scoring and monitor (12) DVT prophylaxis Current Visit: No Status: Acute - Subjective Interval history: Post op day 1 Has worked with PT/OT recommendations made. Pain medication given and patient feeling a little better. denies any melena, hematochezia, hematemesis, n/v, abdominal pain. Denies fevers/chills, n/v. - Constitutional Vitals: Temp Pulse Resp BP Pulse Ox 97.7 F 64 20 160/59 94 01/17/18 15:26 01/17/18 15:26 01/17/18 17:27 01/17/18 15:26 01/17/18 17:27 General appearance: Present: A&O X 3, no acute distress Internal Medicine: Result - Labs CBC & Chem 7: 01/17/18 11:31 01/17/18 11:31 Labs: Short CBC 01/17/18 Range/Units 11:31 WBC 19.6 H D (4.3-11.1) K/mcL Hgb 8.0 L (12.9-16.9) g/dL Hct 25.4 L (37.5-50.1) % Plt Count 383 (140-400) K/mcL Neutrophils # 15.7 H (1.6-8.9) K/mcL BMP 01/17/18 11:31 Sodium 131 L Potassium 4.6 Chloride 94 L Carbon Dioxide 33 H BUN 9 Creatinine 0.82 Glucose 177 H Calcium 8.6 - ABG Interpretation ABG results: PT/INR, D-dimer PT 14.4 Seconds (9.4-12.1) H 01/14/18 11:00 - VTE Documentation of Mechanical Device: Intermittent pneumatic compression device Consult Discharge Plan - Plan [facility]errals: [facility] [Primary Care Provider] - Prescriptions: OxyCODONE Immed Rel [Roxicodone 5 MG] 5 mg PO Q6HR PRN 7 Days #28 tablet PRN Reason: Severe Pain
[2018-01-17] MEDS: Melatonin 3 MG TABLET PO SCH (20:42)
[2018-01-17] MEDS: hydrALAZINE 10 MG TABLET PO PRN (22:07)
[2018-01-18] MEDS: Ampicillin/Sulbactam 1,500 MG in 0.9 % Sodium Chloride Mini Bag 100 ML IVPB SCH ×4 (00:37→19:28)
[2018-01-18] MEDS: Albuterol 2.5 MG/3 ML NEBULIZER IH SCH ×4 (04:22→22:11)
[2018-01-18 05:31] LABS: Basophils % 0.2 %; Eosinophils # 0.3 K/mcL (0.0-0.6); Eosinophils % 1.6 %; Hemoglobin 8.2 g/dL (12.9-16.9); Immature Granulocytes % 0.8 % (0-4); Lymphocytes # 2.8 K/mcL (0.6-4.6); Lymphocytes % 18.3 %; Mean Corpuscular HGB Conc 31.5 g/dL (31.6-35.5); Mean Corpuscular Hemoglobin 27.7 pg (28.0-33.3); Mean Corpuscular Volume 87.8 fL (83.0-100.0); Mean Platelet Volume 9.1 fL (9.4-12.4); Monocytes # 2.2 K/mcL (0.0-1.3); Monocytes % 14.7 %; Neutrophils # 9.8 K/mcL (1.6-8.9); Platelet Count 437 K/mcL (140-400); Red Blood Count 2.96 M/mcL (4.19-5.50); Red Cell Distribution Width 15.4 % (11.5-14.5); Segmented Neutrophils % 64.4 %
[2018-01-18 06:44] LABS: BUN/Creatinine Ratio 13 (6-26); Blood Urea Nitrogen 10 mg/dL (8-23); Calcium 8.4 mg/dL (8.6-10.3); Carbon Dioxide 34 mEq/L (23-29); Chloride 96 mEq/L (98-107); Glucose 156 mg/dL (70-105); Osmolality,Calculated 280 (280-300); Potassium 4.3 mEq/L (3.5-5.1); Sodium 134 mEq/L (136-145); eGFR For African Americans > 60 (> 60); eGFR For Non-African Americans > 60 (> 60)
[2018-01-18] MEDS: Diltiazem CD (24hr) 240 MG CAPSULE PO SCH (08:02)
[2018-01-18] MEDS: Cholecalciferol (D-3) 1,000 UNIT TABLET PO SCH (08:02)
[2018-01-18] MEDS: Isosorbide MONOnitrate (24 HR) 30 MG TAB.ER.24H PO SCH (08:03)
[2018-01-18] MEDS: *HR* LORazepam 0.5 MG TABLET PO SCH ×2 (08:03→20:19)
[2018-01-18] MEDS: Multivit/Ca/Min/Fe/FA 1 TAB TABLET PO SCH (08:03)
[2018-01-18] MEDS: Famotidine 20 MG TABLET PO SCH ×2 (08:03→20:18)
[2018-01-18] MEDS: *HR* Digoxin 0.25 MG TABLET PO SCH (08:05)
[2018-01-18] MEDS: Artificial Tears SOLN 15 ML BOTTLE BOTH EYES SCH ×4 (08:07→22:54)
[2018-01-18] MEDS: amLODIPine 5 MG TABLET PO SCH (10:06)
--- NOTE | 2018-01-18 12:18 | Internal Med Progress Note ---
Date of Encounter: 01/18/18 Time of Encounter: 12:16 - Assessment and plan (1) Closed right hip fracture Current Visit: Yes Status: Acute Assessment and plan: Mechanical fall. Poss related to weakness, deconditioning, Hyponatremia, possibly alcohol related - Status-post right hip IM nailing 01/16/18. Tolerated procedure well without complications. - H&H at baseline Discharging to [facility] bed but was broken. Plan is for discharge Sunday. Qualifiers: Encounter type: initial encounter Qualified Code(s): S72.001A - Fracture of unspecified part of neck of right femur, initial encounter for closed fracture (2) Leukocytosis Current Visit: No Status: Acute Assessment and plan: Patient had leukocytosis of 13k on admission. dropped to 11.2-11.3k. Today he is 19.6k with increase in neutrophil count as well. - Could be stress response but at this level can be highly suspicious for infection. - No fever, no tachycardia, no tachypnea - he had hospitalization one year ago for respiratory failure from pneumonia and patient post-operatively is high risk for aspiration - Repeat chest x-ray was negative - was 19k improved to 15k today. Qualifiers: Leukocytosis type: unspecified Qualified Code(s): D72.829 - Elevated white blood cell count, unspecified (3) Hyponatremia Current Visit: Yes Status: Acute Assessment and plan: Suspect hypovolemic hyponatremia. He appeared dehydrated on admission - Improved after giving normal saline. Sodium improved today after holding Lasix. (4) Acute blood loss anemia Current Visit: No Status: Acute Assessment and plan: Patient with hip fracture after fall. Also has history of lower GI bleed in 2016 had colonoscopy showing angiodysplagia, diverticulosis and internal hemorrhoids. He has atrial fibrillation on aspirin at home only. Suspect acute anemia from from post-op - Aspirin is held - anemia improving, will resume tomorrow (5) Chronic respiratory failure with hypoxia Current Visit: Yes Status: Chronic Assessment and plan: On 3L O2 at home, currently at baseline. (6) GI bleed Current Visit: No Status: Acute Assessment and plan: Has history of LGIB: colonoscopy done in Sep 2017 showed angiodysplasia, diverticulosis, internal hemorrhoids. Will monitor H&H for signs of bleed. Currently denies any melena, hematochezia, abdominal pain, n/v. Qualifiers: GI bleed type/associated pathology: unspecified gastrointestinal hemorrhage type Qualified Code(s): K92.2 - Gastrointestinal hemorrhage, unspecified (7) Peripheral vascular disease Current Visit: No Status: Acute Assessment and plan: Aspirin needs held currently because of acute blood loss anemia (8) Afib Current Visit: No Status: Chronic Assessment and plan: Currently rate controlled - Continue Digoxin - Continue Coreg - Not on anticoagulation at home - known history of LGIB - Takes aspirin at home - held currently for acute blood loss anemia H&H stable will consider restarting aspirin tomorrow. Qualifiers: Atrial fibrillation type: unspecified Qualified Code(s): I48.91 - Unspecified atrial fibrillation (9) COPD (chronic obstructive pulmonary disease) Current Visit: No Status: Chronic Qualifiers: COPD type: unspecified COPD Qualified Code(s): J44.9 - Chronic obstructive pulmonary disease, unspecified (10) GERD (gastroesophageal reflux disease) Current Visit: No Status: Chronic Assessment and plan: ppi Qualifiers: Esophagitis presence: esophagitis presence not specified Qualified Code(s) : K21.9 - Gastro-esophageal reflux disease without esophagitis (11) History of alcohol abuse Current Visit: Yes Status: Acute Assessment and plan: Reported to quit 2 years ago on past admission. He tells me personally he has not drank in 10 years Will do CIWA scoring and monitor Does not show signs of withdrawal (12) DVT prophylaxis Current Visit: No Status: Acute - Subjective Interval history: Post op day 2 Has worked with PT/OT. Denies fevers/chills, n/v. Pain controlled - Constitutional Vitals: Temp Pulse Resp BP Pulse Ox 98.1 F 57 18 159/67 97 01/18/18 07:30 01/18/18 07:30 01/18/18 10:07 01/18/18 07:30 01/18/18 10:07 General appearance: Present: A&O X 3, no acute distress - Head Head exam: Present: atraumatic, normocephalic - Eye Eye exam: Present: PERRL, conjuntiva pink, sclera anicteric Pupils: Present: PERRL - Neck Neck exam general surgery: Present: supple, trachea midline. Absent: lymphadenopathy - Respiratory Respiratory exam: Present: CTAB. Absent: accessory muscle use, rales, rhonchi, wheezes - Cardiovascular Cardiovascular exam: Present: RRR, +S1, +S2. Absent: diastolic murmur, gallop, rubs, systolic murmur - GI/Abdominal GI/Abdominal exam: Present: normal bowel sounds, soft, no peritoneal signs. Absent: distended, tenderness - Extremities Exam Extremities exam: Present: warm, radial pulses palpable and symmetrical. Absent : calf tenderness, cyanotic, pedal edema - Neurological Exam Neurological exam: Present: CN II-XII intact, oriented X3, no focal deficits. Absent: pronater drift, facial droop, speech deficit - Skin Skin exam: Present: dry, intact Internal Medicine: Result - Labs CBC & Chem 7: 01/18/18 05:05 01/18/18 05:05 Labs: Short CBC 01/18/18 Range/Units 05:05 WBC 15.2 H (4.3-11.1) K/mcL Hgb 8.2 L (12.9-16.9) g/dL Hct 26.0 L (37.5-50.1) % Plt Count 437 H (140-400) K/mcL Neutrophils # 9.8 H (1.6-8.9) K/mcL BMP 01/17/18 01/18/18 11:31 05:05 Sodium 131 L 134 L Potassium 4.6 4.3 Chloride 94 L 96 L Carbon Dioxide 33 H 34 H BUN 9 10 Creatinine 0.82 0.80 Glucose 177 H 156 H Calcium 8.6 8.4 L - ABG Interpretation ABG results: PT/INR, D-dimer PT 14.4 Seconds (9.4-12.1) H 01/14/18 11:00 - Impressions Impressions Chest X-Ray 01/17/18 17:54 IMPRESSION: 1. No acute cardiopulmonary disease. 2. Cardiomegaly without failure. 3. COPD. D/ / Yg Alexander MD / Yg Alexander MD Interpreting Provider: Yg Alexander MD - VTE Documentation of Mechanical Device: Intermittent pneumatic compression device Consult Discharge Plan - Plan Referrals: Jennie Coto, PAC [[facility]] - 01/31/18 10:00 am [facility] Care Provider[facility] - ([facility]) Prescriptions: OxyCODONE Immed Rel [Roxicodone 5 MG] 5 mg PO Q6HR PRN 7 Days #28 tablet PRN Reason: Severe Pain
[2018-01-18] MEDS: *HR* OxyCODONE Immed Rel 5 MG TABLET PO PRN (20:19)
[2018-01-18] MEDS: Melatonin 3 MG TABLET PO SCH (20:19)
[2018-01-19] MEDS: Ampicillin/Sulbactam 1,500 MG in 0.9 % Sodium Chloride Mini Bag 100 ML IVPB SCH ×4 (00:43→19:03)
[2018-01-19] MEDS: Albuterol 2.5 MG/3 ML NEBULIZER IH SCH ×4 (04:18→21:49)
[2018-01-19] MEDS: hydrALAZINE 10 MG TABLET PO PRN ×2 (04:21→20:23)
[2018-01-19 06:41] LABS: Basophils # 0.1 K/mcL (0.0-0.2); Basophils % 0.4 %; Eosinophils % 6.4 %; Hematocrit 26.7 % (37.5-50.1); Hemoglobin 8.4 g/dL (12.9-16.9); Immature Granulocytes % 0.7 % (0-4); Lymphocytes # 3.1 K/mcL (0.6-4.6); Lymphocytes % 20.1 %; Mean Corpuscular HGB Conc 31.5 g/dL (31.6-35.5); Mean Corpuscular Hemoglobin 27.7 pg (28.0-33.3); Mean Corpuscular Volume 88.1 fL (83.0-100.0); Monocytes # 2.1 K/mcL (0.0-1.3); Monocytes % 13.8 %; Platelet Count 496 K/mcL (140-400); Red Blood Count 3.03 M/mcL (4.19-5.50); Red Cell Distribution Width 15.7 % (11.5-14.5); Segmented Neutrophils % 58.6 %
[2018-01-19 07:02] LABS: BUN/Creatinine Ratio 16 (6-26); Blood Urea Nitrogen 13 mg/dL (8-23); Calcium 8.8 mg/dL (8.6-10.3); Carbon Dioxide 36 mEq/L (23-29); Chloride 95 mEq/L (98-107); Glucose 123 mg/dL (70-105); Osmolality,Calculated 283 (280-300); Potassium 4.2 mEq/L (3.5-5.1); Sodium 136 mEq/L (136-145); eGFR For African Americans > 60 (> 60); eGFR For Non-African Americans > 60 (> 60)
[2018-01-19] MEDS: Cholecalciferol (D-3) 1,000 UNIT TABLET PO SCH (09:49)
[2018-01-19] MEDS: *HR* LORazepam 0.5 MG TABLET PO SCH ×2 (09:50→20:23)
[2018-01-19] MEDS: Diltiazem CD (24hr) 240 MG CAPSULE PO SCH (09:50)
[2018-01-19] MEDS: Multivit/Ca/Min/Fe/FA 1 TAB TABLET PO SCH (09:50)
[2018-01-19] MEDS: amLODIPine 5 MG TABLET PO SCH (09:50)
[2018-01-19] MEDS: Isosorbide MONOnitrate (24 HR) 30 MG TAB.ER.24H PO SCH (09:50)
[2018-01-19] MEDS: *HR* Digoxin 0.25 MG TABLET PO SCH (09:50)
[2018-01-19] MEDS: Famotidine 20 MG TABLET PO SCH ×2 (09:50→20:24)
[2018-01-19] MEDS: Artificial Tears SOLN 15 ML BOTTLE BOTH EYES SCH ×4 (09:51→20:24)
[2018-01-19] MEDS ORDERED: amLODIPine 5 MG TABLET PO ONE (12:12)
--- NOTE | 2018-01-19 12:20 | Internal Med Progress Note ---
Date of Encounter: 01/19/18 Time of Encounter: 12:20 - Assessment and plan (1) Closed right hip fracture Current Visit: Yes Status: Acute Assessment and plan: Mechanical fall. Poss related to weakness, deconditioning, Hyponatremia, possibly alcohol related - Status-post right hip IM nailing 01/16/18. Tolerated procedure well without complications. - H&H at baseline Discharging to [place] bed but was broken. Plan is for discharge Sunday. Qualifiers: Encounter type: initial encounter Qualified Code(s): S72.001A - Fracture of unspecified part of neck of right femur, initial encounter for closed fracture (2) Leukocytosis Current Visit: No Status: Acute Assessment and plan: Patient had leukocytosis of 13k on admission. dropped to 11.2-11.3k. Today he is 19.6k with increase in neutrophil count as well. - No fever, no tachycardia, no tachypnea - he had hospitalization one year ago for respiratory failure from pneumonia and patient post-operatively is high risk for aspiration - CRP - Repeat CXR - Follow-up procalcitonin level done 2 days ago, repeat one today. If these are negative, then we will stop treatment of pneumonia - CT right hip - rule out abscess Qualifiers: Leukocytosis type: unspecified Qualified Code(s): D72.829 - Elevated white blood cell count, unspecified (3) Hyponatremia Current Visit: Yes Status: Acute Assessment and plan: Suspect hypovolemic hyponatremia. He appeared dehydrated on admission - Improved after giving normal saline. - Improved after holding Lasix. (4) Acute blood loss anemia Current Visit: No Status: Acute Assessment and plan: Patient with hip fracture after fall. Also has history of lower GI bleed in 2016 had colonoscopy showing angiodysplagia, diverticulosis and internal hemorrhoids. He has atrial fibrillation on aspirin at home only. Suspect acute anemia from from post-op Aspirin will resume 01/20 since patient hemoglobin now stable and he does not show any active sign of bleed. (5) Chronic respiratory failure with hypoxia Current Visit: Yes Status: Chronic Assessment and plan: On 3L O2 at home, currently at baseline. (6) GI bleed Current Visit: No Status: Acute Assessment and plan: Has history of LGIB: colonoscopy done in Sep 2017 showed angiodysplasia, diverticulosis, internal hemorrhoids. Will monitor H&H for signs of bleed. Currently denies any melena, hematochezia, abdominal pain, n/v. Qualifiers: GI bleed type/associated pathology: unspecified gastrointestinal hemorrhage type Qualified Code(s): K92.2 - Gastrointestinal hemorrhage, unspecified (7) Peripheral vascular disease Current Visit: No Status: Acute Assessment and plan: Aspirin was held because of acute anemia Resume 01/20. (8) Afib Current Visit: No Status: Chronic Assessment and plan: Currently rate controlled - Continue Digoxin - Continue Coreg - Not on anticoagulation at home - known history of LGIB - Takes aspirin at home - it was held acute blood loss anemia Resume aspirin today since his hemoglobin and blood pressure are stable. Qualifiers: Atrial fibrillation type: unspecified Qualified Code(s): I48.91 - Unspecified atrial fibrillation (9) COPD (chronic obstructive pulmonary disease) Current Visit: No Status: Chronic Qualifiers: COPD type: unspecified COPD Qualified Code(s): J44.9 - Chronic obstructive pulmonary disease, unspecified (10) GERD (gastroesophageal reflux disease) Current Visit: No Status: Chronic Assessment and plan: ppi Qualifiers: Esophagitis presence: esophagitis presence not specified Qualified Code(s) : K21.9 - Gastro-esophageal reflux disease without esophagitis (11) History of alcohol abuse Current Visit: Yes Status: Acute Assessment and plan: Reported to quit 2 years ago on past admission. He tells me personally he has not drank in 10 years Will do CIWA scoring and monitor Does not show signs of withdrawal (12) Hypertension Current Visit: Yes Status: Acute Assessment and plan: Continue Norvasc 5 mg daily Resume Coreg tomorrow Continue Cardizem 240 mg daily Imdur 30 mg daily SBP ran up to 180 today, will give an additional 5 mg of Norvasc now and monitor. Qualifiers: Hypertension type: essential hypertension Qualified Code(s): I10 - Essential (primary) hypertension (13) DVT prophylaxis Current Visit: No Status: Acute - Subjective Interval history: Post op day 3 Working with PT/OT Denies fevers/chills, n/v. At baseline breathing Pain of hip is controlled but persists - Constitutional Vitals: Temp Pulse Resp BP Pulse Ox 98.1 F 78 18 180/77 97 01/19/18 08:29 01/19/18 08:29 01/19/18 10:45 01/19/18 08:29 01/19/18 10:45 General appearance: Present: A&O X 3, no acute distress Exam: CVS: RRR Lungs: deminished breath sounds at bases, some end expiratory wheezing. Abd: Soft, NT/ND Ext: right hip dressing, exicsion is clean, dry, intact. Internal Medicine: Result - Labs CBC & Chem 7: 01/19/18 06:04 01/19/18 06:04 Labs: Short CBC 01/19/18 Range/Units 06:04 WBC 15.4 H (4.3-11.1) K/mcL Hgb 8.4 L (12.9-16.9) g/dL Hct 26.7 L (37.5-50.1) % Plt Count 496 H (140-400) K/mcL Neutrophils # 9.0 H (1.6-8.9) K/mcL BMP 01/19/18 06:04 Sodium 136 Potassium 4.2 Chloride 95 L Carbon Dioxide 36 H BUN 13 Creatinine 0.80 Glucose 123 H Calcium 8.8 - ABG Interpretation ABG results: PT/INR, D-dimer PT 14.4 Seconds (9.4-12.1) H 01/14/18 11:00 - VTE Documentation of Mechanical Device: Intermittent pneumatic compression device Consult Discharge Plan - Plan Referrals: Jennie Coto, PAC [Physician Transmitter Operator] - 01/31/18 10:00 [facility] Prescriptions: OxyCODONE Immed Rel [Roxicodone 5 MG] 5 mg PO Q6HR PRN 7 Days #28 tablet PRN Reason: Severe Pain
[2018-01-19] MEDS ORDERED: Furosemide 40 MG/4 ML VIAL IVP ONE ×2 (18:24)
[2018-01-19] MEDS: Ipratropium/Albuterol Neb 3 ML IH PRN (19:32)
[2018-01-19] MEDS: Melatonin 3 MG TABLET PO SCH (20:23)
[2018-01-19] MEDS: *HR* OxyCODONE Immed Rel 5 MG TABLET PO PRN (22:26)
--- NOTE | 2018-01-19 23:11 | Event Note ---
Date of Encounter: 01/19/18 Time of Encounter: 20:43 Alerted by patient's nurse the patient had hip surgery on 01/16 for fracture and is now complaining of right rose pain. Patient had EP CDs on all day. Patient' s nurse reports no redness or warmth on rose. Nurse instructed to measure both legs to assess for swelling in right leg. Nurse reported no warmth or erythema the right leg 28 cm left leg 26 cm with patient complaining of constant pain rating 3/10 to right leg sometimes shooting to 6/10. Stat d-dimer and stat Doppler of RLE ordered. Pt. to be monitored closely while awaiting results.
[2018-01-20] MEDS: Ampicillin/Sulbactam 1,500 MG in 0.9 % Sodium Chloride Mini Bag 100 ML IVPB SCH ×3 (01:35→16:04)
[2018-01-20] MEDS: Albuterol 2.5 MG/3 ML NEBULIZER IH SCH ×4 (03:54→21:06)
[2018-01-20 08:25] LABS: Basophils % 0.3 %; Eosinophils # 0.9 K/mcL (0.0-0.6); Eosinophils % 6.7 %; Hematocrit 27.9 % (37.5-50.1); Hemoglobin 8.6 g/dL (12.9-16.9); Immature Granulocytes % 0.8 % (0-4); Lymphocytes # 2.3 K/mcL (0.6-4.6); Lymphocytes % 16.3 %; Mean Corpuscular HGB Conc 30.8 g/dL (31.6-35.5); Mean Corpuscular Volume 87.7 fL (83.0-100.0); Mean Platelet Volume 8.9 fL (9.4-12.4); Monocytes # 1.7 K/mcL (0.0-1.3); Nucleated Red Blood Cells 0.2 /100 WBC (0); Platelet Count 529 K/mcL (140-400); Red Blood Count 3.18 M/mcL (4.19-5.50); Red Cell Distribution Width 15.6 % (11.5-14.5); Segmented Neutrophils % 63.9 %
[2018-01-20 08:52] LABS: BUN/Creatinine Ratio 18 (6-26); Blood Urea Nitrogen 14 mg/dL (8-23); Calcium 8.6 mg/dL (8.6-10.3); Carbon Dioxide 35 mEq/L (23-29); Chloride 94 mEq/L (98-107); Glucose 179 mg/dL (70-105); Osmolality,Calculated 285 (280-300); Potassium 3.8 mEq/L (3.5-5.1); Sodium 135 mEq/L (136-145); eGFR For African Americans > 60 (> 60); eGFR For Non-African Americans > 60 (> 60)
[2018-01-20] MEDS: *HR* Digoxin 0.25 MG TABLET PO SCH (09:25)
[2018-01-20] MEDS: Famotidine 20 MG TABLET PO SCH ×2 (09:25→20:38)
[2018-01-20] MEDS: Cholecalciferol (D-3) 1,000 UNIT TABLET PO SCH (09:25)
[2018-01-20] MEDS: amLODIPine 5 MG TABLET PO SCH (09:26)
[2018-01-20] MEDS: Isosorbide MONOnitrate (24 HR) 30 MG TAB.ER.24H PO SCH (09:26)
[2018-01-20] MEDS: *HR* LORazepam 0.5 MG TABLET PO SCH ×2 (09:26→20:38)
[2018-01-20] MEDS: Diltiazem CD (24hr) 240 MG CAPSULE PO SCH (09:26)
[2018-01-20] MEDS: Furosemide 40 MG TABLET PO SCH (09:26)
[2018-01-20] MEDS: Multivit/Ca/Min/Fe/FA 1 TAB TABLET PO SCH (09:26)
[2018-01-20] MEDS: Artificial Tears SOLN 15 ML BOTTLE BOTH EYES SCH ×4 (09:27→20:39)
--- NOTE | 2018-01-20 11:54 | Internal Med Progress Note ---
Date of Encounter: 01/20/18 Time of Encounter: 11:52 - Assessment and plan (1) Closed right hip fracture Current Visit: Yes Status: Acute Assessment and plan: Mechanical fall. Poss related to weakness, deconditioning, Hyponatremia, possibly alcohol related - Status-post right hip IM nailing 01/16/18. Tolerated procedure well without complications. - H&H at baseline Discharging to [place] bed unavailable currently Plan for discharge Sunday Qualifiers: Encounter type: initial encounter Qualified Code(s): S72.001A - Fracture of unspecified part of neck of right femur, initial encounter for closed fracture (2) Leukocytosis Current Visit: No Status: Acute Assessment and plan: Patient had leukocytosis of 13k on admission. dropped to 11.2-11.3k. Peaked at 19k post op with concerns of infection initially - No fever, no tachycardia, no tachypnea - he had hospitalization one year ago for respiratory failure from pneumonia and patient post-operatively is high risk for aspiration - CT hip negative for abscess or infection. Repeat CXR negative - CRP 18, recheck - Follow-up procalcitonin level done 3 days ago, Procalcitonin done 01/19. If these are negative, then we will stop antibiotics Qualifiers: Leukocytosis type: unspecified Qualified Code(s): D72.829 - Elevated white blood cell count, unspecified (3) Hyponatremia Current Visit: Yes Status: Acute Assessment and plan: Suspect hypovolemic hyponatremia. He appeared dehydrated on admission - Improved after giving normal saline. Lasix was held for a few days. Needs resumed as patient prone to fluid overload. (4) Acute blood loss anemia Current Visit: No Status: Acute Assessment and plan: Patient with hip fracture after fall. Also has history of lower GI bleed in 2016 had colonoscopy showing angiodysplagia, diverticulosis and internal hemorrhoids. He has atrial fibrillation on aspirin at home only. Suspect acute anemia from from post-op Aspirinresumed 01/20 since patient hemoglobin now stable and he does not show any active sign of bleed. (5) Chronic respiratory failure with hypoxia Current Visit: Yes Status: Chronic Assessment and plan: On 3L O2 at home, currently at baseline. (6) GI bleed Current Visit: No Status: Acute Assessment and plan: Has history of LGIB: colonoscopy done in Sep 2017 showed angiodysplasia, diverticulosis, internal hemorrhoids. Will monitor H&H for signs of bleed. Currently denies any melena, hematochezia, abdominal pain, n/v. Qualifiers: GI bleed type/associated pathology: unspecified gastrointestinal hemorrhage type Qualified Code(s): K92.2 - Gastrointestinal hemorrhage, unspecified (7) Peripheral vascular disease Current Visit: No Status: Acute Assessment and plan: Aspirin was held because of acute anemia Resume 01/20. (8) Afib Current Visit: No Status: Chronic Assessment and plan: Currently rate controlled - Continue Digoxin - Continue Coreg - Not on anticoagulation at home - known history of LGIB - Takes aspirin at home - it was held acute blood loss anemia - Aspirin resumed Qualifiers: Atrial fibrillation type: unspecified Qualified Code(s): I48.91 - Unspecified atrial fibrillation (9) COPD (chronic obstructive pulmonary disease) Current Visit: No Status: Chronic Qualifiers: COPD type: unspecified COPD Qualified Code(s): J44.9 - Chronic obstructive pulmonary disease, unspecified (10) GERD (gastroesophageal reflux disease) Current Visit: No Status: Chronic Assessment and plan: ppi Qualifiers: Esophagitis presence: esophagitis presence not specified Qualified Code(s) : K21.9 - Gastro-esophageal reflux disease without esophagitis (11) History of alcohol abuse Current Visit: Yes Status: Acute Assessment and plan: Reported to quit 2 years ago on past admission. He tells me personally he has not drank in 10 years Will do CIWA scoring and monitor Does not show signs of withdrawal (12) Hypertension Current Visit: Yes Status: Acute Assessment and plan: Continue Norvasc 5 mg daily Resume Coreg tomorrow Continue Cardizem 240 mg daily Imdur 30 mg daily SBP was elevated on 01/19 up to 180 5 mg Norvasc added yesterday seemed to improve BP afterwords. Continue daily. Qualifiers: Hypertension type: essential hypertension Qualified Code(s): I10 - Essential (primary) hypertension (13) Pain in right rose Current Visit: Yes Status: Acute Assessment and plan: D-dimer was checked overnight which was elevated, however patient is post-op and can expect to be elevated. Preliminary doppler of extremity is negative for DVT this is likely from SCDs (14) DVT prophylaxis Current Visit: No Status: Acute - Subjective Interval history: Post op day 4 Working with PT/OT Pain of hip improving - Constitutional Vitals: Temp Pulse Resp BP Pulse Ox 98.2 F 64 15 130/57 94 01/20/18 07:29 01/20/18 07:29 01/20/18 07:29 01/20/18 07:29 01/20/18 07:29 General appearance: Present: A&O X 3, no acute distress Exam: CVS: RRR Lungs: deminished breath sounds at bases, some end expiratory wheezing. Abd: Soft, NT/ND Ext: right hip dressing, exicsion is clean, dry, intact. Right rose has no gross deformities. Internal Medicine: Result - Labs CBC & Chem 7: 01/20/18 07:11 01/20/18 07:11 Labs: Short CBC 01/20/18 Range/Units 07:11 WBC 14.1 H (4.3-11.1) K/mcL Hgb 8.6 L (12.9-16.9) g/dL Hct 27.9 L (37.5-50.1) % Plt Count 529 H (140-400) K/mcL Neutrophils # 9.0 H (1.6-8.9) K/mcL BMP 01/20/18 07:11 Sodium 135 L Potassium 3.8 Chloride 94 L Carbon Dioxide 35 H BUN 14 Creatinine 0.80 Glucose 179 H Calcium 8.6 - ABG Interpretation ABG results: PT/INR, D-dimer PT 14.4 Seconds (9.4-12.1) H 01/14/18 11:00 D-Dimer 1598 ng/mLFEU (0-500) H 01/19/18 22:44 - Impressions Impressions Chest X-Ray 01/19/18 12:14 IMPRESSION: Small bilateral pleural effusions with bibasilar atelectasis. Stable examination without definite acute focal process. D/ / Andre Hardy MD / Andre Hardy MD Interpreting Provider: Andre Hardy MD Hip CT 01/19/18 12:32 IMPRESSION: 1. Status post ORIF of comminuted intratrochanteric right femur fracture. Displaced fragment identified along the anterior joint line which is favored to reflect displaced lesser trochanteric fragment. 2. Subcutaneous edema surrounding the right hip with heterogeneity of the musculature surrounding the right hip. Findings favored to reflect posttraumatic/postsurgical change. A few locules of gas are also identified which are also favored to reflect postsurgical change. No well organized fluid collection identified at this time. 3. Atherosclerotic disease. 4. Diverticulosis. D/ / Max Roberts MD / Max Roberts MD Interpreting Provider: Max Roberts MD - VTE Documentation of Mechanical Device: Intermittent pneumatic compression device Consult Discharge Plan - Plan Referrals: Jennie Coto PAC [Physician Sales Service Rep] - 01/31/18 10:00 am [facility]) Prescriptions: OxyCODONE Immed Rel [Roxicodone 5 MG] 5 mg PO Q6HR PRN 7 Days #28 tablet PRN Reason: Severe Pain
[2018-01-20] MEDS: *HR* OxyCODONE Immed Rel 5 MG TABLET PO PRN ×2 (14:13→20:38)
[2018-01-20] MEDS: Ipratropium/Albuterol Neb 3 ML IH PRN (15:02)
[2018-01-20] MEDS: Melatonin 3 MG TABLET PO SCH (20:38)
[2018-01-20] MEDS ORDERED: Ampicillin/Sulbactam 1,500 MG in 0.9 % Sodium Chloride Mini Bag 100 ML IVPB SCH (22:00)
[2018-01-21] MEDS: Albuterol 2.5 MG/3 ML NEBULIZER IH SCH ×2 (04:29→10:33)
[2018-01-21] MEDS ORDERED: Ampicillin/Sulbactam 1,500 MG in 0.9 % Sodium Chloride Mini Bag 100 ML IVPB SCH (07:00)
[2018-01-21 07:40] LABS: BUN/Creatinine Ratio 14 (6-26); Blood Urea Nitrogen 11 mg/dL (8-23); Calcium 8.8 mg/dL (8.6-10.3); Carbon Dioxide 34 mEq/L (23-29); Chloride 96 mEq/L (98-107); Glucose 125 mg/dL (70-105); Osmolality,Calculated 283 (280-300); Sodium 136 mEq/L (136-145); eGFR For African Americans > 60 (> 60); eGFR For Non-African Americans > 60 (> 60)
[2018-01-21 07:43] LABS: Basophils % 0.3 %; Eosinophils # 0.8 K/mcL (0.0-0.6); Eosinophils % 5.5 %; Hematocrit 28.4 % (37.5-50.1); Hemoglobin 8.8 g/dL (12.9-16.9); Immature Granulocytes % 1.3 % (0-4); Immature Platelets 1.1 % (1.1-6.1); Lymphocytes # 2.5 K/mcL (0.6-4.6); Lymphocytes % 16.6 %; Mean Corpuscular Hemoglobin 27.3 pg (28.0-33.3); Mean Corpuscular Volume 88.2 fL (83.0-100.0); Monocytes # 2.1 K/mcL (0.0-1.3); Neutrophils # 9.3 K/mcL (1.6-8.9); Nucleated Red Blood Cells 0.2 /100 WBC (0); Platelet Count 615 K/mcL (140-400); Red Blood Count 3.22 M/mcL (4.19-5.50); Red Cell Distribution Width 15.4 % (11.5-14.5); Segmented Neutrophils % 62.3 %
[2018-01-21 08:20] LABS: Mycoplasma pneumoniae IgG 0.07 U/L (<=0.09)
[2018-01-21] MEDS: Artificial Tears SOLN 15 ML BOTTLE BOTH EYES SCH (08:28)
[2018-01-21] MEDS: Furosemide 40 MG TABLET PO SCH (08:29)
[2018-01-21] MEDS: *HR* LORazepam 0.5 MG TABLET PO SCH (08:29)
[2018-01-21] MEDS: Diltiazem CD (24hr) 240 MG CAPSULE PO SCH (08:29)
[2018-01-21] MEDS: *HR* Digoxin 0.25 MG TABLET PO SCH (08:29)
[2018-01-21] MEDS: Isosorbide MONOnitrate (24 HR) 30 MG TAB.ER.24H PO SCH (08:29)
[2018-01-21] MEDS: amLODIPine 5 MG TABLET PO SCH (08:29)
[2018-01-21] MEDS: Cholecalciferol (D-3) 1,000 UNIT TABLET PO SCH (08:30)
[2018-01-21] MEDS: Famotidine 20 MG TABLET PO SCH (08:30)
[2018-01-21] MEDS: Multivit/Ca/Min/Fe/FA 1 TAB TABLET PO SCH (08:30)
[2018-01-21] MEDS: *HR* OxyCODONE Immed Rel 5 MG TABLET PO PRN (10:58)
[2018-01-21 11:08] VITALS: BP 120/61
--- NOTE | 2018-01-21 11:48 | Discharge Summary ---
- NOTES TO OUTPATIENT PROVIDER Notes to Outpatient Provider: - Follow-up CBC in 3 days. Has leukocytosis but was negative for infection. - Follow-up BP. Was elevated and started on Norvasc 5 mg daily. Orders not resulted at time of discharge: Pending orders 01/16/18 15:25 XR hip complete RT [XR] Routine 01/17/18 17:54 Urinalysis reflex Microscopic [URIN] Stat 01/17/18 17:59 Legionella Antigen [RM] Routine Respiratory Infection Panel [MOLMIC] Routine Streptococcal pneumoniae urin antigen [S. Pneumoniae Antigen] [RM] Routine 01/19/18 12:29 Procalcitonin Routine 01/22/18 04:00 BMP [Basic Metabolic Panel] AM 0400 Complete Blood Count [HEME] AM 0400 Date of Encounter: 01/21/18 Time of Encounter: 11:46 - Discharge Diagnosis (1) Closed right hip fracture Priority: Primary Status: Acute Qualifiers: Encounter type: initial encounter Qualified Code(s): S72.001A - Fracture of unspecified part of neck of right femur, initial encounter for closed fracture (2) Leukocytosis Priority: Secondary Status: Acute Qualifiers: Leukocytosis type: unspecified Qualified Code(s): D72.829 - Elevated white blood cell count, unspecified (3) Hyponatremia Priority: Secondary Status: Acute (4) Acute blood loss anemia Priority: Secondary Status: Acute (5) Chronic respiratory failure with hypoxia Priority: Secondary Status: Chronic (6) GI bleed Priority: Secondary Status: Acute Qualifiers: GI bleed type/associated pathology: unspecified gastrointestinal hemorrhage type Qualified Code(s): K92.2 - Gastrointestinal hemorrhage, unspecified (7) Peripheral vascular disease Priority: Secondary Status: Acute (8) Afib Priority: Secondary Status: Chronic Qualifiers: Atrial fibrillation type: unspecified Qualified Code(s): I48.91 - Unspecified atrial fibrillation (9) COPD (chronic obstructive pulmonary disease) Priority: Secondary Status: Chronic Qualifiers: COPD type: unspecified COPD Qualified Code(s): J44.9 - Chronic obstructive pulmonary disease, unspecified (10) GERD (gastroesophageal reflux disease) Priority: Secondary Status: Chronic Qualifiers: Esophagitis presence: esophagitis presence not specified Qualified Code(s) : K21.9 - Gastro-esophageal reflux disease without esophagitis (11) History of alcohol abuse Priority: Secondary Status: Acute (12) Hypertension Priority: Secondary Status: Acute Qualifiers: Hypertension type: essential hypertension Qualified Code(s): I10 - Essential (primary) hypertension (13) Pain in right rose Priority: Secondary Status: Acute (14) DVT prophylaxis Priority: Secondary Status: Acute Hospital course: Mr. Guardado is a 72 year old male with multiple medical problems including CAD, CHF (do not see any old echo on record), COPD on 3 L of action continuously, atrial fibrillation not on anticoagulation but is on aspirin, LGIB. Patient recently admitted to our facility in September 2017 for a lower GI bleed. Patient underwent colonoscopy at that time which showed angiodysplasia as well as diverticulosis and internal hemorrhoids. Patient was discharged. She has been doing fairly well up until about 3 days ago when he fell out of bed once, and also fell while trying to sit in a chair. His son is present at the bedside states that these were mechanical falls and the patient mis-stepped. He did not hit his head. Did not lose consciousness. Over the last 3 days patient has had progressive pain in his right hip with decreasing ability to ambulate. He came to ED and shown on imaging had a right intertrochanteric fracture of his proximal femur. Hemoglobin 6.7 INR 1.3. Patient was ordered 2 units of packed red blood cells on 01/14. He was hyponatremic and needed Lasix held for a few days. Patient had IM nailing 01/16 and tolerated procedure well. He did have leukocytosis at 19k post procedure which resolved. He had emperic antibiotic therapy. He was afebrile and had no signs of acute infection. A procalcitonin was done on two occasions and was negative and so antibiotics were discontinued. Patient was discharged to [place] in stable condition. - Time Spent with Patient Total time spent providing and/or coordinating discharge services: - Discharge Medications Prescriptions: OxyCODONE Immed Rel [Roxicodone 5 MG] 5 mg PO Q6HR PRN 7 Days #28 tablet PRN Reason: Severe Pain Home Medications: Albuterol Sulfate [Albuterol Inhaler] 2 puff IH Q6HR PRN 11/10/16 [History] Atorvastatin Calcium [Lipitor] 40 mg PO HS 11/10/16 [History] Docusate Sodium [Dok] 100 mg PO BID PRN 11/10/16 [History] Furosemide [Lasix] 40 mg PO DAILY 11/10/16 [History] Guaifenesin [Mucus Relief] 400 mg PO BID PRN 11/10/16 [History] Ipratropium/Albuterol Neb [Duoneb] 3 ml IH Q6HR PRN 11/10/16 [History] Isosorbide MONOnitrate (24 HR) [Imdur] 30 mg PO DAILY 11/10/16 [History] LORazepam [Ativan] 0.5 mg PO BID 11/10/16 [History] Melatonin 3 mg PO HS 11/10/16 [History] Methocarbamol [Robaxin-750] 750 mg PO QID PRN 11/10/16 [History] Omeprazole [PriLOSEC] 20 mg PO DAILY 11/10/16 [History] Polyvinyl Alcohol [Artificial Tears] 1 drop BOTH EYES QID 11/10/16 [History] Ranitidine HCl [Acid Park Landscape Architect] 150 mg PO BID 11/10/16 [History] Acetaminophen [Tylenol] 1,000 mg PO BID PRN 01/22/17 [History] Multivitamin [Multi-Day Vitamins] 1 each PO DAILY 01/22/17 [History] Olodaterol HCl [Striverdi Respimat] 2 puff IH DAILY 01/22/17 [History] Aspirin [Lo-Dose Aspirin EC] 81 mg PO DAILY 10/01/17 [History] Calcium Carbonate/Vitamin D3 [Calcium 500 + Vit D Caplet] 1 tab PO BID 10/01/17 [History] Carvedilol 3.125 mg PO BID 10/01/17 [History] Cetirizine HCl [All Day Allergy] 10 mg PO DAILY 10/01/17 [History] Digoxin [Lanoxin] 0.25 mg PO DAILY 10/01/17 [History] Diltiazem HCl [Diltiazem 24Hr Cd] 240 mg PO DAILY 10/01/17 [History] OxyCODONE Immed Rel [Roxicodone 5 MG] 5 mg PO Q6HR PRN 7 Days #28 tablet [Rx] Cholecalciferol (D-3) [Vitamin D] 1,000 unit PO DAILY tablet 01/21/18 [Rx] amLODIPine [Norvasc] 5 mg PO DAILY tablet 01/21/18 [Rx] Allergies/Adverse Reactions: 3 Allergy/AdvReac Type Severity Reaction Status Date / Time acetaminophen [From Vicodin] Allergy See Verified 01/14/18 11:37 Comments hydrocodone [From Vicodin] Allergy See Verified 01/14/18 11:37 Comments moxifloxacin Allergy See Verified 01/14/18 11:37 Comments Date of admission: 01/14/18 11:33 [facility] Consults: 01/14/18 13:21 Consult to Physician [CONS] Routine Consulting Provider: Mario Garcia Reason for Consult: hip fx Time Notified: 13:00 Call Completed: Yes 01/16/18 17:18 Consult to Orthopedic Navigator [CONS] [CONS] Routine Consult to Cosmetic Surgeon [CONS] Routine Reason for SW Consult: post -op hip fracture RT Post Op Consult [CONS] Routine 01/17/18 08:53 Consult to Physical Therapy [CONS] Routine Comment: Evaluate, develop and implement POC Reason for Consult: possible rehab placement, post hip surgery Does patient have active BEDREST order?: No Is patient medically & hemodynamically stable?: Yes Patient assessed for mobility or mobilized this visit?: No 01/17/18 08:54 Consult to Occupational Therapy [CONS] Routine Comment: Evaluate, develop and implement POC Reason for Consult: poss rehab placement, post hip surgery Does patient have active BEDREST order?: No Is patient medically & hemodynamically stable?: Yes Patient assessed for mobility or mobilized this visit?: No Discharging clinician: Samira Solo - Constitutional Vitals: Temp Pulse Resp BP Pulse Ox 97.6 F 84 18 120/61 99 01/21/18 11:06 01/21/18 11:06 01/21/18 11:06 01/21/18 11:06 01/21/18 11:06 General appearance: Present: A&O X 3, no acute distress Exam: CVS: RRR Lungs: deminished breath sounds at bases, some end expiratory wheezing. Abd: Soft, NT/ND Ext: right hip dressing, exicsion is clean, dry, intact. Right rose has no gross deformities. - Patient Status Disposition: Transfer [facility] Condition: Good Functional capacity at discharge: uses cane/walker Overall status at discharge: patient is progressing back to baseline - Discharge Instructions Follow Up With: Jennie Coto, PAC [Physician Shagger] - 01/31/18 10:00 am [facility] Forms: ED Satisfaction Letter - Diet and Activity Activity: as per physical therapy Diet: low fat, low cholesterol, low salt diet - VTE Documentation of Mechanical Device: Intermittent pneumatic compression device
[2018-01-21] MEDS ORDERED: Aminoglycoside Consult 1 EACH MC ONE (13:04)
== END 2018-01-21 13:05 | DRG 481 ==
LOC: EMEROO 10:16 → 3ANU 11:33
PROVIDERS: ADMIT Internal Medicine; ATTEND Internal Medicine

== ENCOUNTER 2018-05-02 04:12 | Inpatient (IN) ==
[2018-05-02 07:03] LABS: Basophils % 0.1 %; Hematocrit 27.1 % (37.5-50.1); Hemoglobin 9.5 g/dL (12.9-16.9); Immature Granulocytes % 0.5 % (0-4); Lymphocytes % 11.3 %; Mean Corpuscular HGB Conc 35.1 g/dL (31.6-35.5); Mean Corpuscular Hemoglobin 26.7 pg (28.0-33.3); Mean Corpuscular Volume 76.1 fL (83.0-100.0); Mean Platelet Volume 8.7 fL (9.4-12.4); Monocytes # 0.2 K/mcL (0.0-1.3); Monocytes % 2.8 %; Neutrophils # 7.4 K/mcL (1.6-8.9); Platelet Count 328 K/mcL (140-400); Red Blood Count 3.56 M/mcL (4.19-5.50); Red Cell Distribution Width 13.9 % (11.5-14.5); Segmented Neutrophils % 85.3 %
[2018-05-02 07:26] LABS: BUN/Creatinine Ratio 13 (6-26); Blood Urea Nitrogen 7 mg/dL (8-23); Calcium 9.1 mg/dL (8.6-10.3); Carbon Dioxide 38 mEq/L (23-29); Chloride 68 mEq/L (98-107); Glucose 158 mg/dL (70-105); Osmolality,Calculated 233 (280-300); Potassium 4.9 mEq/L (3.5-5.1); Sodium 111 mEq/L (136-145); eGFR For African Americans > 60 (> 60); eGFR For Non-African Americans > 60 (> 60)
[2018-05-02] MEDS ORDERED: Naloxone 0.4 MG/ML INJ IVP PRN (07:53)
[2018-05-02] MEDS ORDERED: D5% in Water 1,000 ML IVC PRN (08:29)
[2018-05-02] MEDS ORDERED: *HR* Dextrose 50 % in Water (Syg) 50 ML SYRINGE IVP PRN (08:29)
[2018-05-02] MEDS ORDERED: Dextrose Gel 15 GM/37.5 ML TUBE PO PRN ×2 (08:29)
--- NOTE | 2018-05-02 08:30 | Pulmonology History & Physical ---
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 Will check TSH and also random cortisol level and fluid restriction. They suspect he had received normal saline and that is why his sodium level reportedly was worsen. We will plan for PICC line placement and he might need 3% normal saline, however concern is the worsen his respiratory status with fluid. Fluid restriction and we will hold his home medication at this time. We need carefully to monitor correction on the sodium because of the risk of pontine demyelination. Critical care performed: Time is exclusive of separately billable procedures. Time includes: direct patient care, patient reassessment, coordination of patient care, interpretation of data (laboratory data, radiology data, and respiratory data), review of patient's medical records, medical consultation and documentation of patient care. Procedures excluded from critical care time: 40 (2) Encephalopathy Current visit: No Status: Suspected Suspect this is chronic, however hyponatremia could be a reason and CT head is ordered. Will consider Precedex if patient has agitation. (3) Chronic respiratory failure with hypoxia Current visit: No Status: Chronic I suspect noncompliance and there is possibility of a component of COPD exacerbation, however at this time it was reported this is his baseline and will hold any systemic steroid at this time. Continue bronchodilators. (4) Afib Current visit: No Status: Chronic Patient rate controlled and we will hold medication at this time and check PT/ INR. Patient will have mechanical DVT prophylaxis and deep his MARGOT not he is not significantly abnormal will resume his anticoagulation Qualifiers: Atrial fibrillation type: unspecified Qualified Code(s): I48.91 - Unspecified atrial fibrillation (5) COPD (chronic obstructive pulmonary disease) Current visit: No Status: Chronic Qualifiers: COPD type: unspecified COPD Qualified Code(s): J44.9 - Chronic obstructive pulmonary disease, unspecified (6) History of alcohol abuse Current visit: Yes Status: Suspected (7) Protein-calorie malnutrition Current visit: No Status: Chronic Nutrition consultation Qualifiers: Protein-calorie malnutrition severity: unspecified severity Qualified Code( s): E46 - Unspecified protein-calorie malnutrition History of Present Illness Chief complaint: Hyponatremia and not feeling good HPI: Mr. Guardado is a 72 year old male was transferred from [facility] for hyponatremia. History is limited because patient is confused and not able to reach son at this time. History is taken from the chart and also from previous hospitalization. Patient has complicated past medical history which include chronic respiratory failure and he admitted that he is on oxygen but is not using it on a regular basis and he stated that he is not smoking and also he has history of COPD, coronary artery disease, GERD, hyperlipidemia and also there is history of GI bleed as well as cirrhosis but they do not have documentation about that. Patient has history of atrial fibrillation and he is on anticoagulation. Patient has previous hospitalization for respiratory failure. Again, history is not very clear but reportedly he was not feeling good and presented to the [facility] where he was found to be hyponatremic and with IV fluid his hyponatremia was worsened. Past Med Surg Social Fam HX - Past Medical History Medical history: arthritis, cirrhosis, COPD, coronary artery disease, GERD, hepatitis, hyperlipidemia, hypertension, liver disease, myocardial infarction, peripheral artery disease, renal disease, other Additional medical history: hep c, pulmonary coin lesion, atopic dermatitits, ED , gout, OA, Psychiatric history: anxiety - Past Surgical History Surgical History: no surgical history Additional surgical history: Right Hip 12/2017 - Social History Smoking Status: Former smoker Smokeless Tobacco Status: Yes Alcohol use: none Drug use: none Medications and Allergies Albuterol Sulfate [Albuterol Inhaler] 2 puff IH Q6HR PRN 11/10/16 [History] Docusate Sodium [Dok] 100 mg PO BID PRN 11/10/16 [History] Furosemide [Lasix] 40 mg PO DAILY 11/10/16 [History] Isosorbide MONOnitrate (24 HR) [Imdur] 30 mg PO DAILY 11/10/16 [History] Melatonin 3 mg PO HS 11/10/16 [History] Omeprazole [PriLOSEC] 20 mg PO DAILY 11/10/16 [History] Ranitidine HCl [Acid Extrusion Machine Operator] 150 mg PO BID 11/10/16 [History] Acetaminophen [Tylenol] 1,000 mg PO BID PRN 01/22/17 [History] Olodaterol HCl [Striverdi Respimat] 2 puff IH DAILY 01/22/17 [History] Aspirin [Lo-Dose Aspirin EC] 81 mg PO DAILY 10/01/17 [History] Carvedilol 3.125 mg PO BID 10/01/17 [History] Diltiazem HCl [Diltiazem 24Hr Cd] 240 mg PO DAILY 10/01/17 [History] Cholecalciferol (D-3) [Vitamin D] 1,000 unit PO DAILY tablet 01/21/18 [Rx] amLODIPine [Norvasc] 5 mg PO DAILY tablet 01/21/18 [Rx] Allopurinol [Zyloprim 100 MG] 100 mg PO DAILY 05/02/18 [History] Apixaban [Eliquis] 5 mg PO BID 05/02/18 [History] Digoxin [Lanoxin] 0.125 mg PO DAILY 05/02/18 [History] Multivitamin [One Daily Essential] 1 tab PO DAILY 05/02/18 [History] metFORMIN [Glucophage] 500 mg PO BIDWM 05/02/18 [History] 3 Allergy/AdvReac Type Severity Reaction Status Date / Time acetaminophen [From Vicodin] Allergy See Verified 01/14/18 11:37 Comments hydrocodone [From Vicodin] Allergy See Verified 01/14/18 11:37 Comments moxifloxacin Allergy See Verified 01/14/18 11:37 Comments ROS unobtainable: due to mental status All Systems: The remainder of the systems were reviewed and are negative Physical Examination Vital Signs: Vital Signs, Last 4 Hours Temp Pulse Resp BP Pulse Ox 05/02/18 08:06 68 05/02/18 07:24 98.4 F 05/02/18 06:27 71 05/02/18 05:31 97.8 F 73 20 151/73 96 General appearance: appears uncomfortable Eyes: nonicteric ENT: oropharynx moist Neck: supple Effort: mildly labored Inspection: hyperextended Auscultation: bilateral: wheezes Percussion: bilateral: not dull Cardiovascular: irregular rhythm Gastrointestinal: normoactive bowel sounds, non-distended Extremities: no cyanosis, no edema non-focal exam, pupils equal and round, unable to assess due to mental status anxious Results - Laboratory Findings CBC and BMP: 05/02/18 06:54 05/02/18 06:54 Abnormal lab findings: Abnormal lab results RBC 3.56 M/mcL (4.19-5.50) L 05/02/18 06:54 Hgb 9.5 g/dL (12.9-16.9) L 05/02/18 06:54 Hct 27.1 % (37.5-50.1) L 05/02/18 06:54 MCV 76.1 fL (83.0-100.0) L 05/02/18 06:54 MCH 26.7 pg (28.0-33.3) L 05/02/18 06:54 MPV 8.7 fL (9.4-12.4) L 05/02/18 06:54 Sodium 111 mEq/L (136-145) L* 05/02/18 06:54 Chloride 68 mEq/L (98-107) L 05/02/18 06:54 Carbon Dioxide 38 mEq/L (23-29) H 05/02/18 06:54 BUN 7 mg/dL (8-23) L 05/02/18 06:54 Creatinine 0.53 mg/dL (0.70-1.30) L 05/02/18 06:54 Glucose 158 mg/dL (70-105) H 05/02/18 06:54 POC Glucose 154 mg/dL (70-99) H 05/02/18 05:43 Calculated Osmolality 233 (280-300) L 05/02/18 06:54 Urine Osmolality 174 mOsm/kg (300-1090) L 05/02/18 06:35
[2018-05-02] MEDS: Pantoprazole 40 MG VIAL IVP SCH (09:52)
[2018-05-02 09:55] LABS: INR 1.4; Prothrombin Time 15.5 Seconds (9.4-12.1)
[2018-05-02] MEDS ORDERED: Ipratropium Neb 0.5 MG NEBULIZER IH SCH (10:00)
[2018-05-02] MEDS: Budesonide/Formoterol 160/4.5 MDI IH SCH ×2 (10:11→21:26)
[2018-05-02] MEDS: Ipratropium/Albuterol Neb 3 ML IH SCH ×3 (10:12→21:26)
[2018-05-02 10:22] LABS: Thyroid Stimulating Hormone 0.276 mcIU/mL (0.340-5.600)
[2018-05-02 10:27] LABS: Alanine Aminotransferase 15 Units/L (7-52); Albumin 4.6 g/dL (3.5-5.7); Albumin/Globulin Ratio 1.8 (1.1-2.2); Alkaline Phosphatase 77 Units/L (34-104); Aspartate Amino Transferase 20 Units/L (13-39); BUN/Creatinine Ratio 13 (6-26); Bilirubin,Total 0.8 mg/dL (0.3-1.0); Blood Urea Nitrogen 7 mg/dL (8-23); Calcium 9.6 mg/dL (8.6-10.3); Carbon Dioxide 35 mEq/L (23-29); Chloride 68 mEq/L (98-107); Globulin 2.6 g/dL (2.4-3.5); Glucose 146 mg/dL (70-105); Osmolality,Calculated 237 (280-300); Potassium 4.9 mEq/L (3.5-5.1); Sodium 113 mEq/L (136-145); Total Protein 7.2 g/dL (6.4-8.9); eGFR For African Americans > 60 (> 60); eGFR For Non-African Americans > 60 (> 60)
[2018-05-02] MEDS ORDERED: Gadolinium Contrast Agent (WT Based) IV PRN (10:56)
[2018-05-02] MEDS ORDERED: *HR* 3% Sodium Chloride 500 ML IV.SOLN IVC ONE (11:02)
[2018-05-02] MEDS ORDERED: Lidocaine -MPF 1% 5 ML AMPUL INFILT ONE (11:02)
[2018-05-02] MEDS: Insulin LISPRO 300 UNITS/3 ML VIAL SQ SCH ×2 (12:15→18:04)
[2018-05-03] MEDS: Insulin LISPRO 300 UNITS/3 ML VIAL SQ SCH ×5 (00:18→21:15)
[2018-05-03] MEDS: Ipratropium/Albuterol Neb 3 ML IH SCH ×4 (03:57→22:29)
[2018-05-03 04:13] LABS: Basophils % 0.1 %; Eosinophils % 0.1 %; Hematocrit 24.7 % (37.5-50.1); Hemoglobin 8.6 g/dL (12.9-16.9); Immature Granulocytes % 0.3 % (0-4); Immature Platelets 2.8 % (1.1-6.1); Lymphocytes # 1.4 K/mcL (0.6-4.6); Lymphocytes % 9.6 %; Mean Corpuscular HGB Conc 34.8 g/dL (31.6-35.5); Mean Corpuscular Volume 77.7 fL (83.0-100.0); Monocytes # 2.3 K/mcL (0.0-1.3); Monocytes % 15.9 %; Platelet Count 354 K/mcL (140-400); Red Blood Count 3.18 M/mcL (4.19-5.50); Red Cell Distribution Width 14.6 % (11.5-14.5)
[2018-05-03 04:16] LABS: Neutrophils # 10.7 K/mcL (1.6-8.9)
[2018-05-03] MEDS: Pantoprazole 40 MG VIAL IVP SCH (07:59)
--- NOTE | 2018-05-03 08:18 | Pulmonology Progress Note ---
<GrantJimleonora M - Last Filed: 05/03/18 10:09> Date of Encounter: 05/03/18 Assessment and Plan (1) Hyponatremia with decreased serum osmolality Current Visit: Yes Status: Acute (2) Encephalopathy Current Visit: No Status: Suspected (3) Chronic respiratory failure with hypoxia Current Visit: No Status: Chronic (4) Afib Current Visit: No Status: Chronic Qualifiers: Atrial fibrillation type: unspecified Qualified Code(s): I48.91 - Unspecified atrial fibrillation (5) COPD (chronic obstructive pulmonary disease) Current Visit: No Status: Chronic Qualifiers: COPD type: unspecified COPD Qualified Code(s): J44.9 - Chronic obstructive pulmonary disease, unspecified (6) History of alcohol abuse Current Visit: Yes Status: Suspected (7) Protein-calorie malnutrition Current Visit: No Status: Chronic Qualifiers: Protein-calorie malnutrition severity: unspecified severity Qualified Code( s): E46 - Unspecified protein-calorie malnutrition Objective PUL Vital signs: Last Vital Signs Temp 98.0 F 05/03/18 07:48 Pulse 78 05/03/18 08:00 Resp 20 05/03/18 09:20 BP 131/60 05/03/18 08:00 Pulse Ox 98 05/03/18 09:20 Results - Laboratory Findings CBC and BMP: 05/03/18 03:45 05/03/18 08:05 PT/INR, D-dimer PT 15.5 Seconds (9.4-12.1) H 05/02/18 09:04 Abnormal lab findings: Abnormal lab results WBC 14.5 K/mcL (4.3-11.1) H D 05/03/18 03:45 RBC 3.18 M/mcL (4.19-5.50) L 05/03/18 03:45 Hgb 8.6 g/dL (12.9-16.9) L 05/03/18 03:45 Hct 24.7 % (37.5-50.1) L 05/03/18 03:45 MCV 77.7 fL (83.0-100.0) L 05/03/18 03:45 MCH 27.0 pg (28.0-33.3) L 05/03/18 03:45 RDW 14.6 % (11.5-14.5) H 05/03/18 03:45 MPV 9.0 fL (9.4-12.4) L 05/03/18 03:45 Neutrophils # 10.7 K/mcL (1.6-8.9) H 05/03/18 03:45 Monocytes # 2.3 K/mcL (0.0-1.3) H 05/03/18 03:45 PT 15.5 Seconds (9.4-12.1) H 05/02/18 09:04 Sodium 125 mEq/L (136-145) L 05/03/18 08:05 Chloride 68 mEq/L (98-107) L 05/02/18 09:04 Carbon Dioxide 35 mEq/L (23-29) H 05/02/18 09:04 BUN 7 mg/dL (8-23) L 05/02/18 09:04 Creatinine 0.53 mg/dL (0.70-1.30) L 05/02/18 09:04 Glucose 146 mg/dL (70-105) H 05/02/18 09:04 POC Glucose 100 mg/dL (70-99) H 05/03/18 05:38 Calculated Osmolality 237 (280-300) L 05/02/18 09:04 TSH 0.276 mcIU/mL (0.340-5.600) L 05/02/18 09:04 Urine Osmolality 174 mOsm/kg (300-1090) L 05/02/18 06:35 Ethyl Alcohol 11 mg/dL (Less than 10) H 05/02/18 09:04 - Clinical Findings Intake & Output: Intake & Output 05/02/18 05/03/18 05/03/18 23:59 07:59 15:59 Intake Total 250 / 250 Output Total 650 / 650 1550 / 1550 Balance -400 / -400 -1550 / -1550 Weight 71.3 kg Consult Discharge Plan - Plan [facility]: [facility]Primary Care Provider[facility] - - Attending Attestation I examined this patient and my medical decision-making was reviewed with the Resident Physician. I agree with the documented findings, disposition and treatment plan as described except to the extent set forth below. Patient seen and examined. Labs, radiology, chart personally reviewed. Agree with resident's history and physical, assessment, plan with following comments: [employer]PER[employer]: Patient follows commands, Some confusion which I think it could be his baseline. Pulmonary: Acceptable oxygenation and ventilation Cardiovascular: stable GI: Nutrition per dietary and GI prophylaxis per routine Heme: DVT prophylaxis per routine. Patient will be on DVT prophylaxis Renal; urine out put and renal funtion reviewed. Will be more liberal with free water Endorcine: blood glucose is monitored Lines: all lines checked and no evidence of infections Skin: skin care to prevent pressure ulcers per nursing routine care Patient will be transferred to the floor. <Skylar Garcia N - Last Filed: 05/03/18 13:09> Date of Encounter: 05/03/18 Time of Encounter: 08:12 Assessment and Plan (1) Hyponatremia with decreased serum osmolality Current Visit: Yes Status: Acute Patient was initially admitted to the [facility] for hyponatremia Patient was transferred after serum sodium levels decreased after receiving fluids On admission to [facility] his serum sodium level was 111 Corrected with 3% saline overnight, sodium increased to 123. Fluids stopped to avoid rapid correction of hyponatremia Patient remains confused, it is unclear if this is patient's baseline as there is no family currently present Patient was also hyponatremic during last hospitalization in December 2017 possible secondary to SIADH, however chest and abdominal CT did not reveal any findings concerning for malignancy Spoke to pharmacy regarding medications, but none of his home medications place the patient at a high risk for SIADH Plan to continue frequent monitoring of sodium levels and treat the sodium deficit while avoiding rapid correction Patient will be transferred out of the ICU to telemetry today, spoke with Dr. Ennis regarding transfer (2) Intramuscular hematoma Current Visit: Yes Status: Chronic Abdominal CT showed enlargement of the right iliacus muscle. Follow-up pelvic MRI confirmed the CT findings along with evidence of avulsion of the lesser trochanter There was also a peripheral collection at the iliacus muscle possibly reflecting blood products an intramuscular hematoma Patient underwent a right hip open reduction intramedullary nail fixation on for an intratrochanteric right femur fracture Patient was on eliquis at home for A. fib Patient has weakness of flexion of the right hip compared to the left and he endorses mild tenderness to palpation of the right pelvic and groin area Recommend orthopedic surgery consultation (3) Leukocytosis Current Visit: Yes Status: Acute Elevated white blood cell count of 14.5 with neutrophils at 10.7 Patient denies any fevers, chills, or night sweats No recorded fevers overnight Patient does not show any signs of an acute infection at this time Continue to monitor Qualifiers: Leukocytosis type: unspecified Qualified Code(s): D72.829 - Elevated white blood cell count, unspecified (4) Encephalopathy Current Visit: No Status: Suspected Patient is confused, however it is unknown if this is patient's baseline Hyponatremia could possibly explain her mental status, continue to monitor CT head did not reveal any acute abnormalities (5) Afib Current Visit: No Status: Chronic Patient is currently on rate control Holding anticoagulation as pelvic MRI reveals possible hematoma of the right iliacus muscle Qualifiers: Atrial fibrillation type: unspecified Qualified Code(s): I48.91 - Unspecified atrial fibrillation (6) COPD (chronic obstructive pulmonary disease) Current Visit: No Status: Chronic History of COPD Patient has wheezes on exam Continue Symbicort and DuoNeb as needed Qualifiers: COPD type: unspecified COPD Qualified Code(s): J44.9 - Chronic obstructive pulmonary disease, unspecified (7) Protein-calorie malnutrition Current Visit: No Status: Chronic Nutrition consultation Qualifiers: Protein-calorie malnutrition severity: unspecified severity Qualified Code( s): E46 - Unspecified protein-calorie malnutrition (8) History of alcohol abuse Current Visit: Yes Status: Suspected Thiamine and folic acid Subjective Principal diagnosis: Hyponatremia Interval history: Patient seen and examined at bedside this morning with the attending present. He denies any complaints today but he remains confused, he is oriented to self and age, however he is not oriented to place and is unaware of year or president. He received 3% normal saline overnight and his labs have improved since admission with the most recent sodium at 125. fluids currently on hold to avoid rapid correction of hyponatremia. MRI pelvis yesterday revealed possible collection of blood in the right iliacus muscle, patient underwent open reduction internal fixation for an intertrochanteric femur fracture in December 2017 and has been on eliquis at home for A. fib. He complains of mild right hip pain and weakness of the right lower extremity but denies seeking medical care for it. Of note patient was also hyponatremic during his prior hospitalization during December 2017. He will be transferred out of the ICU today, spoke with Dr. Ennis regarding transfer. Objective PUL Vital signs: Last Vital Signs Temp 98.0 F 05/03/18 07:48 Pulse 71 05/03/18 06:00 Resp 36 05/03/18 06:00 BP 125/51 07/13/18 06:00 Pulse Ox 100 05/03/18 06:00 General appearance: no acute distress Eyes: nonicteric ENT: oropharynx moist Auscultation: bilateral: wheezes (History of COPD, wheezing bilaterally) Cardiovascular: regular rate and rhythm Gastrointestinal: normoactive bowel sounds, soft, non-tender, non-distended Integumentary: normal Extremities: no cyanosis, no edema, no clubbing, other (Hip flexion weakness of the right lower extremity, mild tenderness to palpation of the right groin and right pelvic area) Musculoskeletal: other (Weakness of the right lower extremity with mild tenderness palpation of the right groin) other (Patient is confused, oriented only to self and age) mood appropriate, affect normal, other (Confused) Results - Laboratory Findings CBC and BMP: 05/03/18 03:45 05/03/18 08:05 PT/INR, D-dimer PT 15.5 Seconds (9.4-12.1) H 05/02/18 09:04 Abnormal lab findings: Abnormal lab results WBC 14.5 K/mcL (4.3-11.1) H D 05/03/18 03:45 RBC 3.18 M/mcL (4.19-5.50) L 05/03/18 03:45 Hgb 8.6 g/dL (12.9-16.9) L 05/03/18 03:45 Hct 24.7 % (37.5-50.1) L 05/03/18 03:45 MCV 77.7 fL (83.0-100.0) L 05/03/18 03:45 MCH 27.0 pg (28.0-33.3) L 05/03/18 03:45 RDW 14.6 % (11.5-14.5) H 05/03/18 03:45 MPV 9.0 fL (9.4-12.4) L 05/03/18 03:45 Neutrophils # 10.7 K/mcL (1.6-8.9) H 05/03/18 03:45 Monocytes # 2.3 K/mcL (0.0-1.3) H 05/03/18 03:45 PT 15.5 Seconds (9.4-12.1) H 05/02/18 09:04 Sodium 123 mEq/L (136-145) L 05/03/18 03:45 Chloride 68 mEq/L (98-107) L 05/02/18 09:04 Carbon Dioxide 35 mEq/L (23-29) H 05/02/18 09:04 BUN 7 mg/dL (8-23) L 05/02/18 09:04 Creatinine 0.53 mg/dL (0.70-1.30) L 05/02/18 09:04 Glucose 146 mg/dL (70-105) H 05/02/18 09:04 POC Glucose 100 mg/dL (70-99) H 05/03/18 05:38 Calculated Osmolality 237 (280-300) L 05/02/18 09:04 TSH 0.276 mcIU/mL (0.340-5.600) L 05/02/18 09:04 Urine Osmolality 174 mOsm/kg (300-1090) L 05/02/18 06:35 Ethyl Alcohol 11 mg/dL (Less than 10) H 05/02/18 09:04 - Clinical Findings Intake & Output: Intake & Output 05/02/18 05/03/18 05/03/18 23:59 07:59 15:59 Intake Total 250 / 250 Output Total 650 / 650 1550 / 1550 Balance -400 / -400 -1550 / -1550 Weight 71.3 kg
[2018-05-03] MEDS: Budesonide/Formoterol 160/4.5 MDI IH SCH ×2 (09:20→22:29)
[2018-05-03 10:15] LABS: Digoxin 0.7 ng/mL (0.8-2.0)
[2018-05-03] MEDS ORDERED: *HR* Heparin 5,000 UNIT/ML VIAL SQ SCH (10:30)
[2018-05-03] MEDS ORDERED: Thiamine (B-1) 100 MG TABLET PO SCH (10:30)
[2018-05-03] MEDS ORDERED: Dextrose Gel 15 GM/37.5 ML TUBE PO PRN ×4 (11:43→19:42)
[2018-05-03] MEDS ORDERED: Gadolinium Contrast Agent (WT Based) IV PRN (11:43)
[2018-05-03] MEDS ORDERED: *HR* Dextrose 50 % in Water (Syg) 50 ML SYRINGE IVP PRN ×2 (11:43→19:42)
[2018-05-03] MEDS ORDERED: D5% in Water 1,000 ML IVC PRN ×2 (11:43→19:42)
[2018-05-03] MEDS ORDERED: Naloxone 0.4 MG/ML INJ IVP PRN (11:43)
[2018-05-03] MEDS: Isosorbide MONOnitrate (24 HR) 30 MG TAB.ER.24H PO SCH (15:30)
[2018-05-03] MEDS: Folic Acid 1 MG TABLET PO SCH (15:30)
[2018-05-03] MEDS: *HR* Heparin 5,000 UNIT/ML VIAL SQ SCH (17:37)
--- NOTE | 2018-05-03 17:58 | Electrocardiograph Report ---
[place] [id number] Test Date: 2018-05-02 Pat Name: Stefano Guardado Department: [id number] Room: 2A Gender: M Etl Analyst: : 1945 Requested By: Tevin Burns Order Number: [id number] Reading MD: Dominic Krishna Measurements Intervals [place] Rate: 77 P: 69 WA: 148 QRS: 36 QRSD: 86 T: 26 QT: 337 QTc: 369 Interpretive Statements SINUS RHYTHM Electronically Signed On 05-03-2018 17:56:34 EDT by Dominic Krishna
[2018-05-04] MEDS: Ipratropium/Albuterol Neb 3 ML IH SCH ×4 (05:00→22:47)
[2018-05-04] MEDS: *HR* Heparin 5,000 UNIT/ML VIAL SQ SCH (05:49)
[2018-05-04] MEDS: Folic Acid 1 MG TABLET PO SCH (08:59)
[2018-05-04] MEDS: Isosorbide MONOnitrate (24 HR) 30 MG TAB.ER.24H PO SCH (08:59)
[2018-05-04] MEDS: Thiamine (B-1) 100 MG TABLET PO SCH (08:59)
[2018-05-04] MEDS: Insulin LISPRO 300 UNITS/3 ML VIAL SQ SCH ×4 (09:00→20:43)
[2018-05-04] MEDS ORDERED: Pantoprazole 40 MG VIAL IVP SCH (09:00)
[2018-05-04] MEDS: Budesonide/Formoterol 160/4.5 MDI IH SCH ×2 (10:06→22:47)
[2018-05-04 10:40] LABS: Basophils % 0.1 %; Eosinophils % 0.2 %; Hematocrit 25.1 % (37.5-50.1); Hemoglobin 8.4 g/dL (12.9-16.9); Immature Granulocytes % 0.5 % (0-4); Lymphocytes # 1.6 K/mcL (0.6-4.6); Lymphocytes % 12.3 %; Mean Corpuscular HGB Conc 33.5 g/dL (31.6-35.5); Mean Corpuscular Hemoglobin 27.5 pg (28.0-33.3); Mean Platelet Volume 9.3 fL (9.4-12.4); Monocytes # 1.7 K/mcL (0.0-1.3); Monocytes % 13.1 %; Neutrophils # 9.7 K/mcL (1.6-8.9); Platelet Count 365 K/mcL (140-400); Red Blood Count 3.06 M/mcL (4.19-5.50); Red Cell Distribution Width 15.1 % (11.5-14.5); Segmented Neutrophils % 73.8 %
[2018-05-04 10:59] LABS: Alanine Aminotransferase 13 Units/L (7-52); Albumin 3.4 g/dL (3.5-5.7); Albumin/Globulin Ratio 1.7 (1.1-2.2); Alkaline Phosphatase 53 Units/L (34-104); Aspartate Amino Transferase 15 Units/L (13-39); Bilirubin,Total 0.6 mg/dL (0.3-1.0); Blood Urea Nitrogen 9 mg/dL (8-23); Calcium 8.8 mg/dL (8.6-10.3); Carbon Dioxide 38 mEq/L (23-29); Chloride 85 mEq/L (98-107); Glucose 214 mg/dL (70-105); Osmolality,Calculated 267 (280-300); Potassium 4.1 mEq/L (3.5-5.1); Sodium 126 mEq/L (136-145); Total Protein 5.4 g/dL (6.4-8.9)
[2018-05-04 11:50] LABS: BUN/Creatinine Ratio 14 (6-26); eGFR For African Americans > 60 (> 60); eGFR For Non-African Americans > 60 (> 60)
--- NOTE | 2018-05-04 11:57 | Internal Med Progress Note ---
<Anibal Pearson - Last Filed: 05/04/18 11:54> Date of Encounter: 05/04/18 Time of Encounter: 11:54 - Assessment and plan (1) Hyponatremia Current Visit: Yes Status: Acute Assessment and plan: patient had hypervolemic hyponatremia urine osmolality 174 urine sodium 12.5 likely 2nd to fluid over load with concordant tea toast diet as he does have low bmi and also hx of alcohol use. i/o total -5850 for this hospital visit was given 250cc of 3% NaCl plan: diabetic diet. repeat Na tonight and in AM. if stable/improving discharge tomorrow (2) Metabolic encephalopathy Current Visit: Yes Status: Resolved Assessment and plan: resolved 2nd to hyponatremia alert oriented x3 patient does report confusion but he is answering all questions and understands the plan of action (3) History of alcohol use Current Visit: Yes Status: Chronic Assessment and plan: hx of alcohol use not used in last 15 years according to family however ethanol level slightly elevated at 11 on board not showing signs of withdrawal not on ciwa continue to monitor. (4) Afib Current Visit: Yes Status: Chronic Assessment and plan: controlled continue carvidelol, cardzem and eliquis Qualifiers: Atrial fibrillation type: unspecified Qualified Code(s): I48.91 - Unspecified atrial fibrillation (5) COPD (chronic obstructive pulmonary disease) Current Visit: Yes Status: Chronic Assessment and plan: controlled not in exacerbation continue symbicort and duonebs Qualifiers: COPD type: unspecified COPD Qualified Code(s): J44.9 - Chronic obstructive pulmonary disease, unspecified (6) Protein-calorie malnutrition Current Visit: Yes Status: Chronic Assessment and plan: diabetic diet ensure tid Qualifiers: Protein-calorie malnutrition severity: unspecified severity Qualified Code( s): E46 - Unspecified protein-calorie malnutrition (7) Diabetes Current Visit: Yes Status: Chronic Assessment and plan: controlled continue sliding scale insulin on discharge resume metformin diabetic diet. 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 He denies any overnight complaints. He does report that he is confused terms of what is going on with him. He denies headache, blurry vision, neck pain, chest pain, palpitations, shortness of breath, cough, abdominal pain. He tolerated his diet this morning. He has not had a bowel movement since admission. He reports no problems with urination. - Constitutional Vitals: Temp Pulse Resp BP Pulse Ox 98.1 F 81 20 135/55 93 05/04/18 11:46 05/04/18 11:46 05/04/18 11:46 05/04/18 11:46 05/04/18 11:46 - Other Additional findings: General: Pleasant without distress HEENT: Head atraumatic, normocephalic, EOMI, PERRL, neck nontender to palpation , absent lymphadenopathy, Moist Mucous Membranes, Heart: Regular rate and rhythm with no murmur Lungs: Clear to auscultation bilaterally Abdomen: Soft nontender, nondistended positive bowel sounds Skin: warm and dry, absent rash. Status post right Right hip open reduction intramedullary nail fixation with scar visible Extremities: Absent pedal edema, Neuro: alert oriented x3 Vascular: Pedal and radial pulses 2 out of 4 Internal Medicine: Result - Labs CBC & Chem 7: 05/04/18 10:00 05/04/18 10:00 Labs: Short CBC 05/04/18 Range/Units 10:00 WBC 13.2 H (4.3-11.1) K/mcL Hgb 8.4 L (12.9-16.9) g/dL Hct 25.1 L (37.5-50.1) % Plt Count 365 (140-400) K/mcL Neutrophils # 9.7 H (1.6-8.9) K/mcL BMP 05/03/18 05/04/18 12:00 10:00 Sodium 126 L 126 L Potassium 4.1 Chloride 85 L Carbon Dioxide 38 H BUN 9 Creatinine 0.65 L Glucose 214 H Calcium 8.8 Liver Function 05/04/18 Range/Units 10:00 Total Bilirubin 0.6 (0.3-1.0) mg/dL AST 15 (13-39) Units/L ALT 13 (7-52) Units/L Alkaline Phosphatase 53 (34-104) Units/L Albumin 3.4 L (3.5-5.7) g/dL - ABG Interpretation ABG results: PT/INR, D-dimer PT 15.5 Seconds (9.4-12.1) H 05/02/18 09:04 Consult Discharge Plan - Plan [facility]errals: [facility]Primary Care Provider[facility] - <Michael Cespedes - Last Filed: 05/04/18 16:04> Date of Encounter: 05/04/18 - Assessment and plan (1) Protein-calorie malnutrition Current Visit: Yes Status: Chronic Qualifiers: Protein-calorie malnutrition severity: unspecified severity Qualified Code( s): E46 - Unspecified protein-calorie malnutrition (2) Afib Current Visit: Yes Status: Chronic Qualifiers: Atrial fibrillation type: unspecified Qualified Code(s): I48.91 - Unspecified atrial fibrillation (3) COPD (chronic obstructive pulmonary disease) Current Visit: Yes Status: Chronic Qualifiers: COPD type: unspecified COPD Qualified Code(s): J44.9 - Chronic obstructive pulmonary disease, unspecified (4) Hyponatremia Current Visit: Yes Status: Acute (5) Metabolic encephalopathy Current Visit: Yes Status: Resolved (6) History of alcohol use Current Visit: Yes Status: Chronic (7) Diabetes Current Visit: Yes Status: Chronic Qualifiers: Diabetes mellitus type: type 2 Diabetes mellitus mcc insulin use: without mcc use Diabetes mellitus complication status: without complication Qualified Code(s): E11.9 - Type 2 diabetes mellitus without complications - Time Spent With Patient Total time spent is greater than 50% in coordination of care (as documented) at patient's floor/unit and/or counseling patient: - Constitutional Vitals: Temp Pulse Resp BP Pulse Ox 98.5 F 81 18 138/65 99 05/04/18 15:41 05/04/18 15:41 05/04/18 15:41 05/04/18 15:41 05/04/18 15:41 Internal Medicine: Result - Labs CBC & Chem 7: 05/04/18 10:00 05/04/18 10:00 Labs: Short CBC 05/04/18 Range/Units 10:00 WBC 13.2 H (4.3-11.1) K/mcL Hgb 8.4 L (12.9-16.9) g/dL Hct 25.1 L (37.5-50.1) % Plt Count 365 (140-400) K/mcL Neutrophils # 9.7 H (1.6-8.9) K/mcL BMP 05/04/18 10:00 Sodium 126 L Potassium 4.1 Chloride 85 L Carbon Dioxide 38 H BUN 9 Creatinine 0.65 L Glucose 214 H Calcium 8.8 Liver Function 05/04/18 Range/Units 10:00 Total Bilirubin 0.6 (0.3-1.0) mg/dL AST 15 (13-39) Units/L ALT 13 (7-52) Units/L Alkaline Phosphatase 53 (34-104) Units/L Albumin 3.4 L (3.5-5.7) g/dL - ABG Interpretation ABG results: PT/INR, D-dimer PT 15.5 Seconds (9.4-12.1) H 05/02/18 09:04 - Attending Attestation I examined this patient and my medical decision-making was reviewed with the Resident Physician Dr. Pearson. I agree with the documented findings, disposition and treatment plan as described except to the extent set forth below. Mr. Guardado is a 72 year old male was transferred from [facility] for hyponatremia and confusion. Pt was admitted into ICU initially and started him hypertonic saline and IV hydration. His Na got corrected slowly, today Na @ 126. Cont monitoring Na closely. Gen: A, A, O x 3 Chest: Diminished BS B/L Heart: s1S2+ Ext: No edema a/p 1. Acute hyponatremia Improving cont close monitoring mostly hypervolemic hypovolemia fluid restriction 2. Acute metabolic encephalopathy Due to Hyponatremia improved
[2018-05-04] MEDS: Apixaban 5 MG TABLET PO SCH (20:33)
[2018-05-05] MEDS: Ipratropium/Albuterol Neb 3 ML IH SCH ×4 (04:57→21:06)
[2018-05-05 06:07] LABS: Basophils % 0.2 %; Eosinophils # 0.1 K/mcL (0.0-0.6); Eosinophils % 0.4 %; Hematocrit 23.6 % (37.5-50.1); Hemoglobin 7.5 g/dL (12.9-16.9); Immature Granulocytes % 0.3 % (0-4); Lymphocytes % 17.2 %; Mean Corpuscular HGB Conc 31.8 g/dL (31.6-35.5); Mean Corpuscular Volume 81.9 fL (83.0-100.0); Mean Platelet Volume 9.1 fL (9.4-12.4); Monocytes # 1.9 K/mcL (0.0-1.3); Monocytes % 15.6 %; Neutrophils # 7.9 K/mcL (1.6-8.9); Platelet Count 340 K/mcL (140-400); Red Blood Count 2.88 M/mcL (4.19-5.50); Red Cell Distribution Width 15.1 % (11.5-14.5); Segmented Neutrophils % 66.3 %
[2018-05-05 06:27] LABS: Alanine Aminotransferase 11 Units/L (7-52); Albumin 3.4 g/dL (3.5-5.7); Albumin/Globulin Ratio 1.8 (1.1-2.2); Alkaline Phosphatase 51 Units/L (34-104); Aspartate Amino Transferase 12 Units/L (13-39); BUN/Creatinine Ratio 20 (6-26); Bilirubin,Total 0.6 mg/dL (0.3-1.0); Blood Urea Nitrogen 11 mg/dL (8-23); Calcium 8.8 mg/dL (8.6-10.3); Carbon Dioxide 37 mEq/L (23-29); Chloride 94 mEq/L (98-107); Globulin 1.9 g/dL (2.4-3.5); Glucose 84 mg/dL (70-105); Osmolality,Calculated 263 (280-300); Potassium 4.1 mEq/L (3.5-5.1); Sodium 127 mEq/L (136-145); Total Protein 5.3 g/dL (6.4-8.9); eGFR For African Americans > 60 (> 60); eGFR For Non-African Americans > 60 (> 60)
[2018-05-05] MEDS: Diltiazem CD (24hr) 240 MG CAPSULE PO SCH (08:52)
[2018-05-05] MEDS: Insulin LISPRO 300 UNITS/3 ML VIAL SQ SCH ×4 (08:52→21:10)
[2018-05-05] MEDS: Aspirin Enteric Coated 81 MG Tablet PO SCH (08:52)
[2018-05-05] MEDS: Thiamine (B-1) 100 MG TABLET PO SCH (08:53)
[2018-05-05] MEDS: Apixaban 5 MG TABLET PO SCH ×2 (08:53→20:04)
[2018-05-05] MEDS: Folic Acid 1 MG TABLET PO SCH (08:53)
[2018-05-05] MEDS: *HR* Digoxin 0.125 MG TABLET PO SCH (08:53)
[2018-05-05] MEDS: Furosemide 40 MG TABLET PO SCH (08:53)
[2018-05-05] MEDS: amLODIPine 5 MG TABLET PO SCH (08:53)
[2018-05-05] MEDS: Isosorbide MONOnitrate (24 HR) 30 MG TAB.ER.24H PO SCH (08:53)
[2018-05-05] MEDS: Budesonide/Formoterol 160/4.5 MDI IH SCH ×2 (10:06→21:06)
[2018-05-05 12:17] LABS: Hemoglobin 7.9 g/dL (12.9-16.9)
--- NOTE | 2018-05-05 13:03 | Internal Med Progress Note ---
<Anibal Pearson - Last Filed: 05/05/18 13:01> Date of Encounter: 05/05/18 Time of Encounter: 13:01 - Assessment and plan (1) Hyponatremia Current Visit: Yes Status: Resolved Assessment and plan: patient had hypervolemic hyponatremia urine osmolality 174 urine sodium 12.5 likely 2nd to fluid over load with concordant tea toast diet as he does have low bmi and also hx of alcohol use. i/o total -5850 for this hospital visit was given 250cc of 3% NaCl Resolved Today's sodium is 131 plan: Continue diabetic diet. Awaiting PT/OT evaluation for placement. (2) Metabolic encephalopathy Current Visit: Yes Status: Resolved Assessment and plan: resolved 2nd to hyponatremia alert oriented x3 (3) History of alcohol use Current Visit: Yes Status: Chronic Assessment and plan: hx of alcohol use not used in last 15 years according to family however ethanol level slightly elevated at 11 on admission not showing signs of withdrawal not on ciwa continue to monitor. (4) Afib Current Visit: Yes Status: Chronic Assessment and plan: controlled continue carvidelol, cardzem and eliquis Qualifiers: Atrial fibrillation type: unspecified Qualified Code(s): I48.91 - Unspecified atrial fibrillation (5) COPD (chronic obstructive pulmonary disease) Current Visit: Yes Status: Chronic Assessment and plan: controlled not in exacerbation continue symbicort and duonebs Qualifiers: COPD type: unspecified COPD Qualified Code(s): J44.9 - Chronic obstructive pulmonary disease, unspecified (6) Protein-calorie malnutrition Current Visit: Yes Status: Chronic Assessment and plan: diabetic diet ensure tid Qualifiers: Protein-calorie malnutrition severity: unspecified severity Qualified Code( s): E46 - Unspecified protein-calorie malnutrition (7) Anemia Current Visit: Yes Status: Chronic Assessment and plan: chronic anemia stable initially there was concern for bleeding in left psoas however comparing MRI of this visit to previous CT scans of left hip, it is stable, unchanged. Qualifiers: Anemia type: unspecified type Qualified Code(s): D64.9 - Anemia, unspecified (8) Diabetes Current Visit: Yes Status: Chronic Assessment and plan: controlled continue sliding scale insulin on discharge resume metformin diabetic diet. Qualifiers: Diabetes mellitus type: type 2 Diabetes mellitus usp insulin use: without usp use Diabetes mellitus complication status: without complication Qualified Code(s): E11.9 - Type 2 diabetes mellitus without complications - Time Spent With Patient Total time spent is greater than 50% in coordination of care (as documented) at patient's floor/unit and/or counseling patient: - Subjective Interval history: No acute events overnight. Patient denies chest pain, shortness of breath, abdominal pain, lower extremity pain, headache. - Constitutional Vitals: Temp Pulse Resp BP Pulse Ox 98.6 F 86 18 143/58 96 05/05/18 10:43 05/05/18 10:43 05/05/18 10:43 05/05/18 10:43 05/05/18 10:43 - Other Additional findings: General: Pleasant without distress Heart: Regular rate and rhythm with no murmur Lungs: Clear to auscultation bilaterally Abdomen: Soft nontender, nondistended positive bowel sounds Skin: warm and dry, absent rash Extremities: Absent pedal edema, Neuro: Alert and oriented 3 Vascular: Pedal and radial pulses 2 out of 4 Internal Medicine: Result - Labs CBC & Chem 7: 05/05/18 12:00 05/05/18 12:00 Labs: Short CBC 05/05/18 05/05/18 Range/Units 05:44 12:00 WBC 11.9 H (4.3-11.1) K/mcL Hgb 7.5 L 7.9 L (12.9-16.9) g/dL Hct 23.6 L 24.0 L (37.5-50.1) % Plt Count 340 (140-400) K/mcL Neutrophils # 7.9 (1.6-8.9) K/mcL BMP 05/04/18 05/05/18 05/05/18 19:00 05:44 12:00 Sodium 129 L 127 L 131 L Potassium 4.1 Chloride 94 L Carbon Dioxide 37 H BUN 11 Creatinine 0.55 L Glucose 84 Calcium 8.8 Liver Function 05/05/18 Range/Units 05:44 Total Bilirubin 0.6 (0.3-1.0) mg/dL AST 12 L (13-39) Units/L ALT 11 (7-52) Units/L Alkaline Phosphatase 51 (34-104) Units/L Albumin 3.4 L (3.5-5.7) g/dL - ABG Interpretation ABG results: PT/INR, D-dimer PT 15.5 Seconds (9.4-12.1) H 05/02/18 09:04 Consult Discharge Plan - Plan Referrals: [facility] [Primary Care Provider] - <Michael Cespedes - Last Filed: 05/05/18 14:28> Date of Encounter: 05/05/18 - Assessment and plan (1) Protein-calorie malnutrition Current Visit: Yes Status: Chronic Qualifiers: Protein-calorie malnutrition severity: unspecified severity Qualified Code( s): E46 - Unspecified protein-calorie malnutrition (2) Afib Current Visit: Yes Status: Chronic Qualifiers: Atrial fibrillation type: unspecified Qualified Code(s): I48.91 - Unspecified atrial fibrillation (3) COPD (chronic obstructive pulmonary disease) Current Visit: Yes Status: Chronic Qualifiers: COPD type: unspecified COPD Qualified Code(s): J44.9 - Chronic obstructive pulmonary disease, unspecified (4) Anemia Current Visit: Yes Status: Chronic Qualifiers: Anemia type: unspecified type Qualified Code(s): D64.9 - Anemia, unspecified (5) Hyponatremia Current Visit: Yes Status: Resolved (6) Metabolic encephalopathy Current Visit: Yes Status: Resolved (7) History of alcohol use Current Visit: Yes Status: Chronic (8) Diabetes Current Visit: Yes Status: Chronic Qualifiers: Diabetes mellitus type: type 2 Diabetes mellitus usp insulin use: without emt intermediate use Diabetes mellitus complication status: without complication Qualified Code(s): E11.9 - Type 2 diabetes mellitus without complications - Time Spent With Patient Total time spent is greater than 50% in coordination of care (as documented) at patient's floor/unit and/or counseling patient: - Constitutional Vitals: Temp Pulse Resp BP Pulse Ox 98.6 F 86 18 143/58 96 05/05/18 10:43 05/05/18 10:43 05/05/18 10:43 05/05/18 10:43 05/05/18 10:43 Internal Medicine: Result - Labs CBC & Chem 7: 05/05/18 12:00 05/05/18 12:00 Labs: Short CBC 05/05/18 05/05/18 Range/Units 05:44 12:00 WBC 11.9 H (4.3-11.1) K/mcL Hgb 7.5 L 7.9 L (12.9-16.9) g/dL Hct 23.6 L 24.0 L (37.5-50.1) % Plt Count 340 (140-400) K/mcL Neutrophils # 7.9 (1.6-8.9) K/mcL BMP 05/04/18 05/05/18 05/05/18 19:00 05:44 12:00 Sodium 129 L 127 L 131 L Potassium 4.1 Chloride 94 L Carbon Dioxide 37 H BUN 11 Creatinine 0.55 L Glucose 84 Calcium 8.8 Liver Function 05/05/18 Range/Units 05:44 Total Bilirubin 0.6 (0.3-1.0) mg/dL AST 12 L (13-39) Units/L ALT 11 (7-52) Units/L Alkaline Phosphatase 51 (34-104) Units/L Albumin 3.4 L (3.5-5.7) g/dL - ABG Interpretation ABG results: PT/INR, D-dimer PT 15.5 Seconds (9.4-12.1) H 05/02/18 09:04 - Attending Attestation I examined this patient and my medical decision-making was reviewed with the Resident Physician Dr. Pearson. I agree with the documented findings, disposition and treatment plan as described except to the extent set forth below. Mr. Guardado is a 72 year old male was transferred from [facility] for hyponatremia and confusion. Pt was admitted into ICU initially and started him hypertonic saline and IV hydration. His Na got corrected slowly, today Na @ 131. Cont monitoring Na closely. Gen: A, A, O x 3 Chest: Diminished BS B/L Heart: S1S2+ Ext: No edema a/p 1. Acute hyponatremia Improving cont close monitoring mostly hypervolemic hypovolemia fluid restriction d/c mara 2. Acute metabolic encephalopathy Due to Hyponatremia improved Possible d/c back to [facility] in AM
[2018-05-06] MEDS: Ipratropium/Albuterol Neb 3 ML IH SCH ×4 (04:25→21:42)
[2018-05-06] MEDS: Aspirin Enteric Coated 81 MG Tablet PO SCH (08:51)
[2018-05-06] MEDS: Furosemide 40 MG TABLET PO SCH (08:52)
[2018-05-06] MEDS: Thiamine (B-1) 100 MG TABLET PO SCH (08:52)
[2018-05-06] MEDS: Apixaban 5 MG TABLET PO SCH ×2 (08:52→22:23)
[2018-05-06] MEDS: Insulin LISPRO 300 UNITS/3 ML VIAL SQ SCH ×4 (08:52→22:45)
[2018-05-06] MEDS: Folic Acid 1 MG TABLET PO SCH (08:52)
[2018-05-06] MEDS: Diltiazem CD (24hr) 240 MG CAPSULE PO SCH (10:17)
[2018-05-06] MEDS: amLODIPine 5 MG TABLET PO SCH (10:17)
[2018-05-06] MEDS: Isosorbide MONOnitrate (24 HR) 30 MG TAB.ER.24H PO SCH (10:17)
[2018-05-06] MEDS: *HR* Digoxin 0.125 MG TABLET PO SCH (10:18)
[2018-05-06] MEDS: Budesonide/Formoterol 160/4.5 MDI IH SCH ×2 (11:19→21:42)
--- NOTE | 2018-05-06 14:41 | Discharge Summary ---
- NOTES TO OUTPATIENT PROVIDER Notes to Outpatient Provider: Patient admitted for hyponatremia likely secondary to alcohol use and Tea and toast diet. This is now resolved. Patient did have a low TSH of 0.276 however since this inpatient acute setting this will need to be rechecked outpatient to see if these hyperthyroid. Date of Encounter: 05/06/18 Time of Encounter: 14:39 - Discharge Diagnosis (1) Hyponatremia Priority: Primary Status: Resolved (2) Metabolic encephalopathy Priority: Secondary Status: Resolved (3) History of alcohol use Priority: Secondary Status: Chronic (4) Afib Priority: Secondary Status: Chronic Qualifiers: Atrial fibrillation type: chronic Qualified Code(s): I48.2 - Chronic atrial fibrillation (5) COPD (chronic obstructive pulmonary disease) Priority: Secondary Status: Chronic Qualifiers: COPD type: unspecified COPD Qualified Code(s): J44.9 - Chronic obstructive pulmonary disease, unspecified (6) Protein-calorie malnutrition Priority: Secondary Status: Chronic Qualifiers: Protein-calorie malnutrition severity: unspecified severity Qualified Code( s): E46 - Unspecified protein-calorie malnutrition (7) Diabetes Priority: Secondary Status: Chronic Qualifiers: Diabetes mellitus type: type 2 Diabetes mellitus skilled nursing 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 Guardado is a 72 year old male presented with chief complaint of hyponatremia from [facility]. Patient was confused on presentation and family could not be reached. Patient was given hypertonic saline due to the encephalopathy. Head CT, chest CT, abdominal CT were negative for acute changes. His sodium was 111 on admission and improved to 126 and 48 hours. Patient also had leukocytosis however there is no signs of infection. CT of the abdomen did show marked enlargement of the right iliac is muscle with concern for hematoma however this was stable from previous right hip repair in December which was confirmed by MRI. Patient's hemoglobin was stable in the hospital stay. Once patient's hyponatremia resolved, his encephalopathy resolved as well. Today he is alert and oriented 3 eating without any issues, and does not have problems urinating or having bowel movements. Physical therapy was consulted and recommended swing bed. Patient will be discharged to [facility] for rehabilitation. - Time Spent with Patient Total time spent providing and/or coordinating discharge services: - Discharge Medications Home Medications: Albuterol Sulfate [Albuterol Inhaler] 2 puff IH Q6HR PRN 11/10/16 [History] Docusate Sodium [Dok] 100 mg PO BID PRN 11/10/16 [History] Furosemide [Lasix] 40 mg PO DAILY 11/10/16 [History] Isosorbide MONOnitrate (24 HR) [Imdur] 30 mg PO DAILY 11/10/16 [History] Melatonin 6 mg PO HS PRN 11/10/16 [History] Omeprazole [PriLOSEC] 20 mg PO DAILY 11/10/16 [History] Ranitidine HCl [Acid Accounts Payable Representative] 150 mg PO BID 11/10/16 [History] Acetaminophen [Tylenol] 1,000 mg PO BID PRN 01/22/17 [History] Olodaterol HCl [Striverdi Respimat] 2 puff IH DAILY 01/22/17 [History] Aspirin [Lo-Dose Aspirin EC] 81 mg PO DAILY 10/01/17 [History] Carvedilol 3.125 mg PO BID 10/01/17 [History] Diltiazem HCl [Diltiazem 24Hr Cd] 240 mg PO DAILY 10/01/17 [History] Cholecalciferol (D-3) [Vitamin D] 1,000 unit PO DAILY tablet 01/21/18 [Rx] amLODIPine [Norvasc] 5 mg PO DAILY tablet 01/21/18 [Rx] Allopurinol [Zyloprim 100 MG] 100 mg PO DAILY 05/02/18 [History] Apixaban [Eliquis] 5 mg PO BID 05/02/18 [History] Digoxin [Lanoxin] 0.125 mg PO DAILY 05/02/18 [History] Multivitamin [One Daily Essential] 1 tab PO DAILY 05/02/18 [History] metFORMIN [Glucophage] 500 mg PO BIDWM 05/02/18 [History] Allergies/Adverse Reactions: 3 Allergy/AdvReac Type Severity Reaction Status Date / Time acetaminophen [From Vicodin] Allergy See Verified 01/14/18 11:37 Comments hydrocodone [From Vicodin] Allergy See Verified 01/14/18 11:37 Comments moxifloxacin Allergy See Verified 01/14/18 11:37 Comments Date of admission: 05/02/18 07:53 [facility] care physician[facility] Consults: 05/04/18 11:01 Consult to Occupational Therapy [CONS] Routine Comment: Evaluate, develop and implement POC Reason for Consult: Physical deconditioning Does patient have active BEDREST order?: No Is patient medically & hemodynamically stable?: Yes Consult to Physical Therapy [CONS] Routine Comment: Evaluate, develop and implement POC Reason for Consult: Physical deconditioning Does patient have active BEDREST order?: No Is patient medically & hemodynamically stable?: Yes 05/06/18 13:01 Consult to Judge Clerk [CONS] Routine Reason for SW Consult: placment Discharging clinician: Anibal Pearson Anticipated date of discharge: 05/06/18 - Constitutional Vitals: Temp Pulse Resp BP Pulse Ox 96.9 F L 73 16 113/47 100 05/06/18 11:20 05/06/18 11:20 05/06/18 11:20 05/06/18 11:20 05/06/18 11:20 - Other Additional findings: General: without distress HEENT: Head atraumatic, normocephalic, EOMI, PERRL, neck nontender to palpation , absent lymphadenopathy, Moist Mucous Membranes, Heart: Irregularly irregular Lungs: Clear to auscultation bilaterally Abdomen: Soft nontender, nondistended positive bowel sounds Skin: warm and dry, absent rash Extremities: Absent pedal edema, Neuro: Alert oriented 3 Vascular: Pedal and radial pulses 2 out of 4 - Patient Status Disposition: Transfer Inpatient Rehab Fac Condition: Good Functional capacity at discharge: uses cane/walker Overall status at discharge: patient is progressing back to baseline - Discharge Instructions Follow Up With: [facility] [Primary Care Provider] - - Diet and Activity Activity: as per physical therapy Diet: diabetic diet, low fat, low cholesterol, low salt diet
--- NOTE | 2018-05-06 14:51 | Physician Discharge Referral ---
ExtendedCare Referral Info Transfer To: [facility] Provider in Charge: Dr. Harris Provider in Charge after Transfer: PCP Institutional Level of Care: Intermediate - Diagnosis (1) Hyponatremia Priority: Primary Status: Resolved (2) Metabolic encephalopathy Priority: Secondary Status: Resolved (3) History of alcohol use Priority: Secondary Status: Chronic (4) Afib Priority: Secondary Status: Chronic (5) COPD (chronic obstructive pulmonary disease) Priority: Secondary Status: Chronic (6) Protein-calorie malnutrition Priority: Secondary Status: Chronic (7) Diabetes Priority: Secondary Status: Chronic (8) Anemia Priority: Secondary Status: Chronic Prognosis: Good Aware of Diagnosis: Patient, Family - Transfer Medications Home Medications: Albuterol Sulfate [Albuterol Inhaler] 2 puff IH Q6HR PRN 11/10/16 [History] Docusate Sodium [Dok] 100 mg PO BID PRN 11/10/16 [History] Furosemide [Lasix] 40 mg PO DAILY 11/10/16 [History] Isosorbide MONOnitrate (24 HR) [Imdur] 30 mg PO DAILY 11/10/16 [History] Melatonin 6 mg PO HS PRN 11/10/16 [History] Omeprazole [PriLOSEC] 20 mg PO DAILY 11/10/16 [History] Ranitidine HCl [Acid Search Engine Marketing Specialist] 150 mg PO BID 11/10/16 [History] Acetaminophen [Tylenol] 1,000 mg PO BID PRN 01/22/17 [History] Olodaterol HCl [Striverdi Respimat] 2 puff IH DAILY 01/22/17 [History] Aspirin [Lo-Dose Aspirin EC] 81 mg PO DAILY 10/01/17 [History] Carvedilol 3.125 mg PO BID 10/01/17 [History] Diltiazem HCl [Diltiazem 24Hr Cd] 240 mg PO DAILY 10/01/17 [History] Cholecalciferol (D-3) [Vitamin D] 1,000 unit PO DAILY tablet 01/21/18 [Rx] amLODIPine [Norvasc] 5 mg PO DAILY tablet 01/21/18 [Rx] Allopurinol [Zyloprim 100 MG] 100 mg PO DAILY 05/02/18 [History] Apixaban [Eliquis] 5 mg PO BID 05/02/18 [History] Digoxin [Lanoxin] 0.125 mg PO DAILY 05/02/18 [History] Multivitamin [One Daily Essential] 1 tab PO DAILY 05/02/18 [History] metFORMIN [Glucophage] 500 mg PO BIDWM 05/02/18 [History] Allergies/Adverse Reactions: 3 Allergy/AdvReac Type Severity Reaction Status Date / Time acetaminophen [From Vicodin] Allergy See Verified 01/14/18 11:37 Comments hydrocodone [From Vicodin] Allergy See Verified 01/14/18 11:37 Comments moxifloxacin Allergy See Verified 01/14/18 11:37 Comments - Respiratory Orders Oxygen / L per min (3L) Smoking Cessation: Smoking cessation has been advised. For more information, call the [place] Tobacco Quit Line at 7-778-YERF-NOW. - Lab Orders Lab Orders: CBC (On 05/09/18) - Ancillary Orders May use pressure relief devices daily prn - Advance Directives Code Status: Full Code - Mobility Orders Ambulate (with waker) - Rehabiliation Orders Rehab Potential: Fair Rehab Orders: ROM Exercises, Evaluation for Physical Therapy, Evaluation for Occupational Therapy - Treatments Skin tear care topically daily PRN per policy - Diet Orders No Concentrated Sweets, Cardiac House Supplement per Dietary: ensure Tid CERTIFICATION: I certify that the transfer of the above named patient to an Extended Care Facility is necessary for the continuing treatment of the diagnosis listed. The above information is true and accurate reflection of patient's current condition. Confidential - Redisclosure prohibited without a patient's written consent.
[2018-05-06] MEDS ORDERED: Ibuprofen 600 MG TABLET PO PRN (22:16)
[2018-05-07] MEDS: Ipratropium/Albuterol Neb 3 ML IH SCH ×4 (04:28→21:45)
[2018-05-07] MEDS: Isosorbide MONOnitrate (24 HR) 30 MG TAB.ER.24H PO SCH (08:39)
[2018-05-07] MEDS: Thiamine (B-1) 100 MG TABLET PO SCH (08:39)
[2018-05-07] MEDS: Folic Acid 1 MG TABLET PO SCH (08:39)
[2018-05-07] MEDS: Diltiazem CD (24hr) 240 MG CAPSULE PO SCH (08:39)
[2018-05-07] MEDS: Apixaban 5 MG TABLET PO SCH ×2 (08:40→20:28)
[2018-05-07] MEDS: Furosemide 40 MG TABLET PO SCH (08:40)
[2018-05-07] MEDS: amLODIPine 5 MG TABLET PO SCH (08:40)
[2018-05-07] MEDS: Insulin LISPRO 300 UNITS/3 ML VIAL SQ SCH ×4 (08:40→22:31)
[2018-05-07] MEDS: *HR* Digoxin 0.125 MG TABLET PO SCH (08:40)
[2018-05-07] MEDS: Aspirin Enteric Coated 81 MG Tablet PO SCH (08:40)
--- NOTE | 2018-05-07 10:14 | Event Note ---
Date of Encounter: 05/07/18 Time of Encounter: 10:12 Patient was seen and examined. I agree with the progress note as written by the resident physician. Patient is here with AMS/encephalopathy from hypnatremia of 111 requiring hyprtonic saline in the ICU. This is resolved and is up to 131. mental status cleared. [facility] GEN: NAD HEENT: AT, NC, No cyanosis, oral mucosa is moist, No JVD Lymphatics: No lymphadenoapthy Eyes: Extrocular muscles intact, anicteric CVS:RRR. S1, S2, No m/r/g RESP: CTAB ABD: Soft, NT, ND, +BS EXT: No edema, No rashes, 2+ DP NEURO: Nonfocal, CN II-XII intact, No focal motor or sensory deficits Psych: Cooperative, Not anxious or depressed Remove Oseguera and do voiding trial Hyponatremia likely form dehydration is resolved ok d/c today.
[2018-05-07] MEDS: Budesonide/Formoterol 160/4.5 MDI IH SCH ×2 (10:54→21:44)
--- NOTE | 2018-05-07 14:49 | Internal Med Progress Note ---
Date of Encounter: 05/07/18 Time of Encounter: 14:47 - Assessment and plan (1) Hyponatremia Current Visit: Yes Status: Resolved Assessment and plan: patient had hypervolemic hyponatremia urine osmolality 174 urine sodium 12.5 likely 2nd to fluid over load with concordant tea toast diet as he does have low bmi and also hx of alcohol use. i/o total -5850 for this hospital visit was given 250cc of 3% NaCl Resolved Today's sodium is 131 plan: Continue diabetic diet. Awaiting PT/OT evaluation for placement. 05/07- patient condition unchanged, awaiting placement (2) Metabolic encephalopathy Current Visit: Yes Status: Resolved Assessment and plan: resolved 2nd to hyponatremia alert oriented x3 05/07- patient Alert and oriented x 3, pleasant, and aware of and agrees with plan (3) Protein-calorie malnutrition Current Visit: Yes Status: Chronic Assessment and plan: diabetic diet ensure tid 05/07- Patient was eating when I entered room today, educated on importance of diet Qualifiers: Protein-calorie malnutrition severity: unspecified severity Qualified Code( s): E46 - Unspecified protein-calorie malnutrition (4) Afib Current Visit: Yes Status: Chronic Assessment and plan: controlled continue carvidelol, cardzem and eliquis 05/07- continue current management Qualifiers: Atrial fibrillation type: chronic Qualified Code(s): I48.2 - Chronic atrial fibrillation (5) COPD (chronic obstructive pulmonary disease) Current Visit: Yes Status: Chronic Assessment and plan: controlled not in exacerbation continue symbicort and duonebs 05/07- continue current management Qualifiers: COPD type: unspecified COPD Qualified Code(s): J44.9 - Chronic obstructive pulmonary disease, unspecified (6) Anemia Current Visit: Yes Status: Chronic Assessment and plan: chronic anemia stable initially there was concern for bleeding in left psoas however comparing MRI of this visit to previous CT scans of left hip, it is stable, unchanged. 05/07- Patient condition unchanged, exam and clinical condition unconcerning for worsening anemia Qualifiers: Anemia type: unspecified type Qualified Code(s): D64.9 - Anemia, unspecified (7) History of alcohol use Current Visit: Yes Status: Chronic Assessment and plan: hx of alcohol use not used in last 15 years according to family however ethanol level slightly elevated at 11 on admission not showing signs of withdrawal not on ciwa continue to monitor. 05/07- patient still not showing signs of withdrawal, will continue CIWA protocol (8) Diabetes Current Visit: Yes Status: Chronic Assessment and plan: controlled continue sliding scale insulin on discharge resume metformin diabetic diet. 05/07- continuing current management and diet Qualifiers: Diabetes mellitus type: type 2 Diabetes mellitus intermediate insulin use: without intermediate use Diabetes mellitus complication status: without complication Qualified Code(s): E11.9 - Type 2 diabetes mellitus without complications - Time Spent With Patient Total time spent is greater than 50% in coordination of care (as documented) at patient's floor/unit and/or counseling patient: - Subjective Interval history: Patient admitted for hyponatremia and encephalopathy, both since resolved. Plan for discharge to [place] when bed is available. Patient seen and examined this morning. He is aware of plan and agrees. He has no complaints this morning. Denies chest pain, shortness of breath, lightheadedness, fever or chills, abdominal pain, nausea or vomiting. - Constitutional Vitals: Temp Pulse Resp BP Pulse Ox 98.9 F 65 19 109/41 98 05/07/18 11:41 05/07/18 11:41 05/07/18 11:41 05/07/18 11:41 05/07/18 11:41 Exam: Patient in no acute distress, pleasant Alert and oriented x 3 Heart in regular rate and irregular rhythm Lungs clear to auscultation Abdomen soft and non tender Skin warm and dry Internal Medicine: Result - Labs CBC & Chem 7: 05/05/18 12:00 05/05/18 12:00 - ABG Interpretation ABG results: PT/INR, D-dimer PT 15.5 Seconds (9.4-12.1) H 05/02/18 09:04 Consult Discharge Plan - Plan [facility]errals: [facility] [Primary Care Provider] -
[2018-05-08] MEDS: Ipratropium/Albuterol Neb 3 ML IH SCH ×2 (04:18→09:44)
[2018-05-08 04:51] LABS: BUN/Creatinine Ratio 25 (6-26); Blood Urea Nitrogen 14 mg/dL (8-23); Calcium 8.7 mg/dL (8.6-10.3); Carbon Dioxide 39 mEq/L (23-29); Chloride 92 mEq/L (98-107); Glucose 129 mg/dL (70-105); Osmolality,Calculated 278 (280-300); Potassium 4.5 mEq/L (3.5-5.1); Sodium 133 mEq/L (136-145); eGFR For African Americans > 60 (> 60); eGFR For Non-African Americans > 60 (> 60)
[2018-05-08 07:50] VITALS: BP 130/54
--- NOTE | 2018-05-08 08:50 | Event Note ---
Date of Encounter: 05/08/18 Time of Encounter: 08:48 Patient was seen and examined. I agree with the progress note as written by the resident physician. Patient is here with AMS/encephalopathy from hypnatremia of 111 requiring hyprtonic saline in the ICU. This is resolved and is up to 133. mental status cleared. [facility] Was supposed to happen yesterday but ran into placement issues. Oseguera has been removed and patient passed voiding trials. GEN: NAD HEENT: AT, NC, No cyanosis, oral mucosa is moist, No JVD Lymphatics: No lymphadenoapthy Eyes: Extrocular muscles intact, anicteric CVS:RRR. S1, S2, No m/r/g RESP: CTAB ABD: Soft, NT, ND, +BS EXT: No edema, No rashes, 2+ DP NEURO: Nonfocal, CN II-XII intact, No focal motor or sensory deficits Psych: Cooperative, Not anxious or depressed Oseguera out and passed voiding trials. Hyponatremia likely form dehydration is resolved ok d/c today or whenever placement is approved.
[2018-05-08] MEDS: Thiamine (B-1) 100 MG TABLET PO SCH (09:30)
[2018-05-08] MEDS: Folic Acid 1 MG TABLET PO SCH (09:30)
[2018-05-08] MEDS: amLODIPine 5 MG TABLET PO SCH (09:30)
[2018-05-08] MEDS: *HR* Digoxin 0.125 MG TABLET PO SCH (09:31)
[2018-05-08] MEDS: Aspirin Enteric Coated 81 MG Tablet PO SCH (09:31)
[2018-05-08] MEDS: Isosorbide MONOnitrate (24 HR) 30 MG TAB.ER.24H PO SCH (09:31)
[2018-05-08] MEDS: Diltiazem CD (24hr) 240 MG CAPSULE PO SCH (09:31)
[2018-05-08] MEDS: Apixaban 5 MG TABLET PO SCH (09:31)
[2018-05-08] MEDS: Furosemide 40 MG TABLET PO SCH (09:31)
[2018-05-08] MEDS: Insulin LISPRO 300 UNITS/3 ML VIAL SQ SCH (09:32)
[2018-05-08] MEDS: Budesonide/Formoterol 160/4.5 MDI IH SCH (09:45)
--- NOTE | 2018-05-08 11:15 | Internal Med Progress Note ---
Date of Encounter: 05/08/18 Time of Encounter: 11:07 - Assessment and plan (1) Hyponatremia Current Visit: Yes Status: Resolved Assessment and plan: patient had hypervolemic hyponatremia urine osmolality 174 urine sodium 12.5 likely 2nd to fluid over load with concordant tea toast diet as he does have low bmi and also hx of alcohol use. i/o total -5850 for this hospital visit was given 250cc of 3% NaCl Resolved Today's sodium is 131 plan: Continue diabetic diet. Awaiting PT/OT evaluation for placement. 05/07- patient condition unchanged, awaiting placement 05/08- Patient condition still unchanged, sodium rechecked this AM at 133, [facility] (2) Metabolic encephalopathy Current Visit: Yes Status: Resolved Assessment and plan: resolved 2nd to hyponatremia alert oriented x3 05/07- patient Alert and oriented x 3, pleasant, and aware of and agrees with plan 05/08 - patient still A&O x3, aware of and agrees with plan for [facility] (3) Protein-calorie malnutrition Current Visit: Yes Status: Chronic Assessment and plan: diabetic diet ensure tid 05/07- Patient was eating when I entered room today, educated on importance of diet 05/08- Patient diet and condition stable Qualifiers: Protein-calorie malnutrition severity: unspecified severity Qualified Code( s): E46 - Unspecified protein-calorie malnutrition (4) Afib Current Visit: Yes Status: Chronic Assessment and plan: controlled continue carvidelol, cardzem and eliquis 05/07- continue current management 05/08- continue current management Qualifiers: Atrial fibrillation type: chronic Qualified Code(s): I48.2 - Chronic atrial fibrillation (5) COPD (chronic obstructive pulmonary disease) Current Visit: Yes Status: Chronic Assessment and plan: controlled not in exacerbation continue symbicort and duonebs 05/07- continue current management 05/08- continue current management Qualifiers: COPD type: unspecified COPD Qualified Code(s): J44.9 - Chronic obstructive pulmonary disease, unspecified (6) Anemia Current Visit: Yes Status: Chronic Assessment and plan: chronic anemia stable initially there was concern for bleeding in left psoas however comparing MRI of this visit to previous CT scans of left hip, it is stable, unchanged. 05/07- Patient condition unchanged, exam and clinical condition unconcerning for worsening anemia 05/08- patient condition stable Qualifiers: Anemia type: unspecified type Qualified Code(s): D64.9 - Anemia, unspecified (7) History of alcohol use Current Visit: Yes Status: Chronic Assessment and plan: hx of alcohol use not used in last 15 years according to family however ethanol level slightly elevated at 11 on admission not showing signs of withdrawal not on ciwa continue to monitor. 05/07- patient still not showing signs of withdrawal, will continue CIWA protocol 05/08- condition unchanged, continue CIWA protocol (8) Diabetes Current Visit: Yes Status: Chronic Assessment and plan: controlled continue sliding scale insulin on discharge resume metformin diabetic diet. 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 Plan for discharge to [place] when bed is available. Patient seen and examined this morning. He is aware of plan and agrees. He has no complaints this morning. Denies chest pain, shortness of breath, lightheadedness, fever or chills, abdominal pain, nausea or vomiting. - Constitutional Vitals: Temp Pulse Resp BP Pulse Ox 97.7 F 72 18 130/54 94 05/08/18 07:42 05/08/18 07:42 05/08/18 07:42 05/08/18 07:42 05/08/18 07:42 Exam: Patient in no acute distress Alert and oriented x 3 Heart in regular rate, irregular rhythm lungs clear to auscultation abdomen soft and nontender skin warm and dry Internal Medicine: Result - Labs CBC & Chem 7: 05/05/18 12:00 05/08/18 04:15 Labs: BMP 05/08/18 04:15 Sodium 133 L Potassium 4.5 Chloride 92 L Carbon Dioxide 39 H BUN 14 Creatinine 0.55 L Glucose 129 H Calcium 8.7 - ABG Interpretation ABG results: PT/INR, D-dimer PT 15.5 Seconds (9.4-12.1) H 05/02/18 09:04 Consult Discharge Plan - Plan [facility]errals: [facility] [Primary Care Provider] -
== END 2018-05-08 12:07 | DRG 640 ==
LOC: ICNU → 2ANU 05-03 11:35
PROVIDERS: ADMIT Family Medicine; ATTEND Family Medicine

== ENCOUNTER 2018-05-30 14:34 | Inpatient (IN) ==
[2018-05-30 15:26] LABS: Basophils % 0.3 %; Eosinophils # 0.1 K/mcL (0.0-0.6); Eosinophils % 0.7 %; Hematocrit 25.7 % (37.5-50.1); Hemoglobin 8.5 g/dL (12.9-16.9); Immature Granulocytes % 0.3 % (0-4); Lymphocytes # 2.7 K/mcL (0.6-4.6); Lymphocytes % 22.4 %; Mean Corpuscular HGB Conc 33.1 g/dL (31.6-35.5); Mean Corpuscular Hemoglobin 27.7 pg (28.0-33.3); Mean Corpuscular Volume 83.7 fL (83.0-100.0); Mean Platelet Volume 9.2 fL (9.4-12.4); Monocytes # 1.3 K/mcL (0.0-1.3); Monocytes % 10.6 %; Neutrophils # 7.9 K/mcL (1.6-8.9); Platelet Count 301 K/mcL (140-400); Red Blood Count 3.07 M/mcL (4.19-5.50); Red Cell Distribution Width 15.7 % (11.5-14.5); Segmented Neutrophils % 65.7 %
[2018-05-30 15:42] LABS: INR 1.9; Prothrombin Time 21.5 Seconds (9.4-12.1)
[2018-05-30 15:44] LABS: Activated Partial Thrombo Time 35.1 Seconds (26.0-36.0)
--- NOTE | 2018-05-30 15:47 | Emergency Department Note ---
Disposition Clinical Impression: GI bleed Qualifiers: GI bleed type/associated pathology: unspecified gastrointestinal hemorrhage type Qualified Code(s): K92.2 - Gastrointestinal hemorrhage, unspecified Disposition: Admitted As Inpatient Condition: Fair [facility]errals: [facility] [Primary Care Provider] - Forms: ED Satisfaction Letter Time of Disposition: 19:29 General Adult HPI - General Chief complaint: ED GI Bleed Stated complaint: GI Bleed Time Seen by Provider: 05/30/18 14:37 Source: patient Limitations: no limitations Nursing Notes Reviewed: Yes Vital Signs Reviewed: Yes - History of Present Illness HPI Narrative: 72-year-old white male presents for GI bleeding. Patient noticed blood in his stool last night. Patient states he has had GI bleeding before, last time was a couple months ago. Bleeding was from stomach, needed to be cauterized. Patient reports associated symptoms of weight loss and diarrhea. Patient is not aware how much weight he's lost. Patient reports taking 2 tablets of aspirin and 2 tablets ibuprofen every day. Takes ibuprofen daily for occasional right lower quadrant abdominal pain. He denies abdominal pain yesterday or today. Denies feeling unwell. Denies chest pain, shortness of breath, melena, acid reflux, nausea, vomiting, fever, lightheadedness, falling, dizziness, abdominal pain, hemorrhoids. Former smoker, denies alcohol and drugs. Denies history of ulcers and H. pylori. Medical history includes GERD, anemia, COPD, hepatitis C/cirrhosis, CHF, chronic alcoholism, gout, atrial fibrillation, peripheral artery disease, renal disease, and protein calorie malnutrition. - Related Data Home Medications Medication Instructions Recorded Confirmed Albuterol Sulfate [Albuterol 2 puff IH Q6HR PRN 11/10/16 05/30/18 Inhaler] Docusate Sodium [Dok] 100 mg PO BID PRN 11/10/16 05/30/18 Furosemide [Lasix] 40 mg PO DAILY 11/10/16 05/30/18 Isosorbide MONOnitrate (24 HR) 30 mg PO DAILY 11/10/16 05/30/18 [Imdur] Melatonin 6 mg PO HS PRN 11/10/16 05/30/18 Omeprazole [PriLOSEC] 20 mg PO DAILY 11/10/16 05/30/18 Ranitidine HCl [Acid Clinical Specialty Rep] 150 mg PO BID 11/10/16 05/30/18 Acetaminophen [Tylenol] 1,000 mg PO BID PRN 01/22/17 05/30/18 Olodaterol HCl [Striverdi Respimat] 2 puff IH DAILY 01/22/17 05/30/18 Aspirin [Lo-Dose Aspirin EC] 81 mg PO DAILY 10/01/17 05/30/18 Carvedilol 3.125 mg PO BID 10/01/17 05/30/18 Diltiazem HCl [Diltiazem 24Hr Cd] 240 mg PO DAILY 10/01/17 05/30/18 Allopurinol [Zyloprim 100 MG] 100 mg PO DAILY 05/02/18 05/30/18 Apixaban [Eliquis] 5 mg PO BID 05/02/18 05/30/18 Digoxin [Lanoxin] 0.125 mg PO DAILY 05/02/18 05/30/18 Multivitamin [One Daily Essential] 1 tab PO DAILY 05/02/18 05/30/18 metFORMIN [Glucophage] 500 mg PO BIDWM 05/02/18 05/30/18 Previous Rx's Medication Instructions Recorded Cholecalciferol (D-3) [Vitamin D] 1,000 unit PO DAILY tablet 01/21/18 amLODIPine [Norvasc] 5 mg PO DAILY tablet 01/21/18 Allergies Allergy/AdvReac Type Severity Reaction Status Date / Time acetaminophen [From Vicodin] Allergy See Verified 01/14/18 11:37 Comments hydrocodone [From Vicodin] Allergy See Verified 01/14/18 11:37 Comments moxifloxacin Allergy See Verified 01/14/18 11:37 Comments All systems ED: reviewed and negative except as stated. Past Medical History - Past Medical History Medical history: Reports: arthritis, cirrhosis, COPD, coronary artery disease, GERD, hepatitis, hyperlipidemia, hypertension, liver disease, myocardial infarction, peripheral artery disease, renal disease, other Surgical history: Reports: no surgical history Psychiatric history: Reports: anxiety - Social History Smoking Status: Former smoker Smokeless Tobacco Status: Yes Alcohol use: Reports: none Drug use: Reports: none Physical Exam - General Limitations: physical limitation General appearance: alert, in no apparent distress, other (Can smell "GI bleed" ) - Head Head exam: atraumatic, normocephalic, normal inspection - Eye Eye exam: Present: normal appearance - Neck Neck exam: Present: normal inspection, full ROM, trachea midline. Absent: tenderness, lymphadenopathy - Chest Chest inspection: Present: normal inspection, symmetric chest wall rise - Respiratory Respiratory exam: Present: normal lung sounds bilaterally - Cardiovascular Cardiovascular exam: Present: regular rate, normal rhythm, normal heart sounds - Abdominal Exam Abdominal exam: Present: soft, tenderness. Absent: Non-Tender, distention, guarding, rebound, rigidity Abdominal tenderness: Present: RLQ - Extremities Exam Extremities exam: Present: normal inspection, full ROM. Absent: tenderness, pedal edema - Neurological Exam Neurological exam: Present: alert, oriented X3, CN II-XII intact - Psychiatric Psychiatric exam: Present: normal affect, normal mood - Skin Skin exam: Present: warm, dry, intact, normal color Course Course Narrative: 72-year-old male presents for GI bleed. Patient is alert and oriented, hemodynamically, and nontoxic. Will order cardiac and GI workup including type and cross. Stool is maroon in color, hemoccult is positive. - Reevaluation(s) Reevaluation #1: CBC reveals WBC 12 and hemoglobin 8.5. Metabolic panel reveals low Na 120 and increased carbon dioxide 45. Not able to localize GI bleed on CTA abdomen/ pelvis due to oral contrast. Patient needs endoscopy, will admit. Spoke with hospitalist Dr. Salinas who agrees to admit. Time: 19:28 Medical Decision Making - Medical Records Medical records reviewed: Yes I reviewed the patient's medical records. - Lab Data Lab results reviewed: Yes I reviewed the patient's lab results. Result diagrams: 05/30/18 15:13 Lab Results 05/30/18 05/30/18 05/30/18 Range/Units 15:13 15:13 15:13 WBC 12.0 H (4.3-11.1) K/mcL RBC 3.07 L (4.19-5.50) M/mcL Hgb 8.5 L (12.9-16.9) g/dL Hct 25.7 L (37.5-50.1) % MCV 83.7 (83.0-100.0) fL MCH 27.7 L (28.0-33.3) pg MCHC 33.1 (31.6-35.5) g/dL RDW 15.7 H (11.5-14.5) % Plt Count 301 (140-400) K/mcL MPV 9.2 L (9.4-12.4) fL Immature Gran % 0.3 (0-4) % Seg Neutrophils % 65.7 % Lymphocytes % 22.4 % Monocytes % 10.6 % Eosinophils % 0.7 % Basophils % 0.3 % Neutrophils # 7.9 (1.6-8.9) K/mcL Lymphocytes # 2.7 (0.6-4.6) K/mcL Monocytes # 1.3 (0.0-1.3) K/mcL Eosinophils # 0.1 (0.0-0.6) K/mcL Basophils # 0.0 (0.0-0.2) K/mcL Lactic Acid 1.6 (0.5-2.2) mmol/L Blood Type A NEGATIVE - Radiology Data Radiology results reviewed: Yes I reviewed the patient's radiology results. CT abdomen/pelvis 05/30/2018. There is oral contrast throughout the bowel, and therefore localization of gastrointestinal bleeding on this CT angiogram is not possible. There is extensive diverticulosis of the large bowel, especially in the region of the sigmoid colon, but without CT evidence of diverticulitis. Evolving hematoma in the right iliacus muscle is noted. - EKG Data EKG #1 EKG attestation: Yes I reviewed and interpreted this EKG. EKG results narrative: EKG 05/30/2018. Sinus rhythm. Heart rate 58. No ST segment elevation or depression. No comparison EKG.
[2018-05-30 15:53] LABS: Troponin I < 0.03 ng/mL (< 0.04)
[2018-05-30 15:57] LABS: Alanine Aminotransferase 14 Units/L (7-52); Albumin 3.8 g/dL (3.5-5.7); Albumin/Globulin Ratio 1.8 (1.1-2.2); Alkaline Phosphatase 77 Units/L (34-104); Aspartate Amino Transferase 17 Units/L (13-39); BUN/Creatinine Ratio 19 (6-26); Bilirubin,Total 0.7 mg/dL (0.3-1.0); Blood Urea Nitrogen 12 mg/dL (8-23); Carbon Dioxide 44 mEq/L (23-29); Chloride 70 mEq/L (98-107); Globulin 2.1 g/dL (2.4-3.5); Glucose 133 mg/dL (70-105); Lipase 6 Units/L (11-82); Osmolality,Calculated 252 (280-300); Sodium 120 mEq/L (136-145); Total Protein 5.9 g/dL (6.4-8.9); eGFR For Non-African Americans > 60 (> 60)
[2018-05-30] MEDS ORDERED: Isovue-370 500 ML INFUS..BTL IV ONE (16:11)
[2018-05-30] MEDS ORDERED: 0.9 % Sodium Chloride 250 ML ONE (16:41)
[2018-05-30] MEDS ORDERED: Pantoprazole 40 MG VIAL IVP ONE (17:24)
--- NOTE | 2018-05-30 17:25 | Emergency Department Note ---
Disposition Clinical Impression: GI bleed Qualifiers: GI bleed type/associated pathology: melena Qualified Code(s): K92.1 - Melena Disposition: Admitted As Inpatient Forms: ED Satisfaction Letter General Adult HPI - General Chief complaint: ED GI Bleed Stated complaint: GI Bleed Time Seen by Provider: 05/30/18 14:37 Source: patient Limitations: physical limitation - History of Present Illness Pain Scale: 4 - Related Data Home Medications Medication Instructions Recorded Confirmed Albuterol Sulfate [Albuterol 2 puff IH Q6HR PRN 11/10/16 05/30/18 Inhaler] Docusate Sodium [Dok] 100 mg PO BID PRN 11/10/16 05/30/18 Furosemide [Lasix] 40 mg PO DAILY 11/10/16 05/30/18 Isosorbide MONOnitrate (24 HR) 30 mg PO DAILY 11/10/16 05/30/18 [Imdur] Melatonin 6 mg PO HS PRN 11/10/16 05/30/18 Omeprazole [PriLOSEC] 20 mg PO DAILY 11/10/16 05/30/18 Ranitidine HCl [Acid Rehabilitation Program Coordinator] 150 mg PO BID 11/10/16 05/30/18 Acetaminophen [Tylenol] 1,000 mg PO BID PRN 01/22/17 05/30/18 Olodaterol HCl [Striverdi Respimat] 2 puff IH DAILY 01/22/17 05/30/18 Aspirin [Lo-Dose Aspirin EC] 81 mg PO DAILY 10/01/17 05/30/18 Carvedilol 3.125 mg PO BID 10/01/17 05/30/18 Diltiazem HCl [Diltiazem 24Hr Cd] 240 mg PO DAILY 10/01/17 05/30/18 Allopurinol [Zyloprim 100 MG] 100 mg PO DAILY 05/02/18 05/30/18 Apixaban [Eliquis] 5 mg PO BID 05/02/18 05/30/18 Digoxin [Lanoxin] 0.125 mg PO DAILY 05/02/18 05/30/18 Multivitamin [One Daily Essential] 1 tab PO DAILY 05/02/18 05/30/18 metFORMIN [Glucophage] 500 mg PO BIDWM 05/02/18 05/30/18 Previous Rx's Medication Instructions Recorded Cholecalciferol (D-3) [Vitamin D] 1,000 unit PO DAILY tablet 01/21/18 amLODIPine [Norvasc] 5 mg PO DAILY tablet 01/21/18 Allergies Allergy/AdvReac Type Severity Reaction Status Date / Time acetaminophen [From Vicodin] Allergy See Verified 01/14/18 11:37 Comments hydrocodone [From Vicodin] Allergy See Verified 01/14/18 11:37 Comments moxifloxacin Allergy See Verified 01/14/18 11:37 Comments Past Medical History - Past Medical History Medical history: Reports: arthritis, cirrhosis, COPD, coronary artery disease, GERD, hepatitis, hyperlipidemia, hypertension, liver disease, myocardial infarction, peripheral artery disease, renal disease, other Surgical history: Reports: no surgical history Psychiatric history: Reports: anxiety - Social History Smoking Status: Former smoker Smokeless Tobacco Status: Yes Alcohol use: Reports: none Drug use: Reports: none Physical Exam - General Limitations: physical limitation General appearance: alert, in no apparent distress, other (Can smell "GI bleed" ) Course Vital Signs Temperature 98.3 F 05/30/18 16:04 Pulse Rate 66 05/30/18 16:04 Respiratory Rate 17 05/30/18 16:04 Blood Pressure 136/65 05/30/18 16:04 O2 Sat by Pulse Oximetry 97 05/30/18 16:04 Temperature 98.4 F 05/30/18 17:00 Pulse Rate 61 05/30/18 17:06 Respiratory Rate 15 05/30/18 17:06 Blood Pressure 139/59 05/30/18 17:06 O2 Sat by Pulse Oximetry 100 05/30/18 17:06 Oxygen Delivery Oxygen Delivery Room Air Medical Decision Making - Lab Data Result diagrams: 05/30/18 15:13 05/30/18 15:13 Lab Results 05/30/18 05/30/18 05/30/18 Range/Units 15:13 15:13 15:13 WBC 12.0 H (4.3-11.1) K/mcL RBC 3.07 L (4.19-5.50) M/mcL Hgb 8.5 L (12.9-16.9) g/dL Hct 25.7 L (37.5-50.1) % MCV 83.7 (83.0-100.0) fL MCH 27.7 L (28.0-33.3) pg MCHC 33.1 (31.6-35.5) g/dL RDW 15.7 H (11.5-14.5) % Plt Count 301 (140-400) K/mcL MPV 9.2 L (9.4-12.4) fL Immature Gran % 0.3 (0-4) % Seg Neutrophils % 65.7 % Lymphocytes % 22.4 % Monocytes % 10.6 % Eosinophils % 0.7 % Basophils % 0.3 % Neutrophils # 7.9 (1.6-8.9) K/mcL Lymphocytes # 2.7 (0.6-4.6) K/mcL Monocytes # 1.3 (0.0-1.3) K/mcL Eosinophils # 0.1 (0.0-0.6) K/mcL Basophils # 0.0 (0.0-0.2) K/mcL PT 21.5 H (9.4-12.1) Seconds INR 1.9 APTT 35.1 (26.0-36.0) Seconds Sodium 120 L* (136-145) mEq/L Potassium 5.0 (3.5-5.1) mEq/L Chloride 70 L (98-107) mEq/L Carbon Dioxide 44 H* (23-29) mEq/L BUN 12 (8-23) mg/dL Creatinine 0.64 L (0.70-1.30) mg/dL Est GFR ( Amer) > 60 (> 60) Est GFR (Non-Af Amer) > 60 (> 60) BUN/Creatinine Ratio 19 (6-26) Glucose 133 H (70-105) mg/dL Calculated Osmolality 252 L (280-300) Lactic Acid (0.5-2.2) mmol/L Calcium 9.0 (8.6-10.3) mg/dL Total Bilirubin 0.7 (0.3-1.0) mg/dL AST 17 (13-39) Units/L ALT 14 (7-52) Units/L Alkaline Phosphatase 77 (34-104) Units/L Troponin I < 0.03 (< 0.04) ng/mL Serum Total Protein 5.9 L (6.4-8.9) g/dL Albumin 3.8 (3.5-5.7) g/dL Globulin 2.1 L (2.4-3.5) g/dL Albumin/Globulin Ratio 1.8 (1.1-2.2) Lipase 6 L (11-82) Units/L Blood Type Antibody Screen Crossmatch 05/30/18 05/30/18 Range/Units 15:13 15:13 WBC (4.3-11.1) K/mcL RBC (4.19-5.50) M/mcL Hgb (12.9-16.9) g/dL Hct (37.5-50.1) % MCV (83.0-100.0) fL MCH (28.0-33.3) pg MCHC (31.6-35.5) g/dL RDW (11.5-14.5) % Plt Count (140-400) K/mcL MPV (9.4-12.4) fL Immature Gran % (0-4) % Seg Neutrophils % % Lymphocytes % % Monocytes % % Eosinophils % % Basophils % % Neutrophils # (1.6-8.9) K/mcL Lymphocytes # (0.6-4.6) K/mcL Monocytes # (0.0-1.3) K/mcL Eosinophils # (0.0-0.6) K/mcL Basophils # (0.0-0.2) K/mcL PT (9.4-12.1) Seconds INR APTT (26.0-36.0) Seconds Sodium (136-145) mEq/L Potassium (3.5-5.1) mEq/L Chloride (98-107) mEq/L Carbon Dioxide (23-29) mEq/L BUN (8-23) mg/dL Creatinine (0.70-1.30) mg/dL Est GFR ( Amer) (> 60) Est GFR (Non-Af Amer) (> 60) BUN/Creatinine Ratio (6-26) Glucose (70-105) mg/dL Calculated Osmolality (280-300) Lactic Acid 1.6 (0.5-2.2) mmol/L Calcium (8.6-10.3) mg/dL Total Bilirubin (0.3-1.0) mg/dL AST (13-39) Units/L ALT (7-52) Units/L Alkaline Phosphatase (34-104) Units/L Troponin I (< 0.04) ng/mL Serum Total Protein (6.4-8.9) g/dL Albumin (3.5-5.7) g/dL Globulin (2.4-3.5) g/dL Albumin/Globulin Ratio (1.1-2.2) Lipase (11-82) Units/L Blood Type A NEGATIVE Antibody Screen NEGATIVE Crossmatch See Detail Attestation Statement - Attestation Attestation: I examined this patient and my medical decision-making was reviewed with the Resident Physician. I agree with the documented findings, disposition and treatment plan as described except to the extent set forth below. 72 year old male presents to the ED with complaints of weakness and has been experiencing increased melena and is hemoccult positive. Bert has a hgb of 8.5 and his last tranfusion was in when at that point they found an abrasion in the stomach that they cauterized. PAtient will be trasfused. He also has a sodium of 120, but this is likely secondary to hypovolemia. Admit to medicine
[2018-05-30 22:20] LABS: Hematocrit 31.6 % (37.5-50.1)
[2018-05-30 22:23] LABS: Hemoglobin 10.4 g/dL (12.9-16.9)
[2018-05-30 22:52] LABS: BUN/Creatinine Ratio 20 (6-26); Blood Urea Nitrogen 13 mg/dL (8-23); Calcium 8.8 mg/dL (8.6-10.3); Carbon Dioxide 43 mEq/L (23-29); Chloride 74 mEq/L (98-107); Glucose 116 mg/dL (70-105); Osmolality,Calculated 255 (280-300); Sodium 122 mEq/L (136-145); eGFR For Non-African Americans > 60 (> 60)
[2018-05-30] MEDS ORDERED: Naloxone 0.4 MG/ML INJ IVP PRN (23:03)
[2018-05-30] MEDS ORDERED: Ipratropium/Albuterol Neb 3 ML IH PRN (23:08)
[2018-05-30] MEDS ORDERED: *HR* Dextrose 50 % in Water (Syg) 50 ML SYRINGE IVP PRN (23:12)
[2018-05-30] MEDS ORDERED: Dextrose Gel 15 GM/37.5 ML TUBE PO PRN ×2 (23:12)
[2018-05-30] MEDS ORDERED: D5% in Water 1,000 ML IVC PRN (23:12)
[2018-05-30] MEDS ORDERED: Melatonin 3 MG TABLET PO PRN (23:15)
[2018-05-30] MEDS: Pantoprazole 40 MG in 0.9 % Sodium Chloride Mini Bag 100 ML IVC SCH (23:22)
--- NOTE | 2018-05-30 23:24 | Internal Med History&Physical ---
Date of Encounter: 05/31/18 Time of Encounter: 22:15 Internal Medicine - H&P: HPI Chief complaint: GI bleed, Hyponatremia Admitted From: Home Plans for Post Hospital Care: Home History of present illness: Mr. Guardado is a 72 year old male Patient presented to the emergency room after experiencing bright red blood per rectum. He said they first noticed blood in the toilet about 2 days ago but then he had another episode on the day of admission. He denies black stools. He has a history of GI bleed in the past and needed cauterization at that time. He apparently also takes aspirin and ibuprofen daily. Patient has a history of atrial fibrillation has been on Eliquis as well. He came to the emergency room for further evaluation. He denies weakness, chest pain, falls, nausea, vomiting, diarrhea, constipation. In the ER patient was Hemoccult positive, hemoglobin is 8.5, sodium was 120, potassium was 5.0, and serum osmolality was 252. An abdominal pelvic CT showed extensive diverticulosis without diverticulitis of the sigmoid, but no active bleeding could be seen as patient received oral contrast. He was typed and screened in the ER and given 2 units of PRBCs and sent to the medical floor for further management. Upon my assessment patient denies any complaints, nurses did note a large bloody bowel movement upon arrival to the floor. Patient is alert awake and oriented 3 and in no distress. Patient has a history of hyponatremia as well most recently treated last month in the ICU. At that time he presented similarly but had significant encephalopathy as well. He did not have a GI bleed either at that time. Past Med Surg Social Fam HX - Past Medical History Medical history: arthritis, cirrhosis, COPD, coronary artery disease, GERD, hepatitis, hyperlipidemia, hypertension, liver disease, myocardial infarction, peripheral artery disease, renal disease, other Additional medical history: hep c, pulmonary coin lesion, atopic dermatitits, ED , gout, OA, Psychiatric history: anxiety - Past Surgical History Surgical History: no surgical history Additional surgical history: Right Hip 12/2017 - Social History Smoking Status: Former smoker Smokeless Tobacco Status: Yes Alcohol use: none Drug use: none Internal Medicine - H&P: Meds Albuterol Sulfate [Albuterol Inhaler] 2 puff IH Q6HR PRN 11/10/16 [History] Docusate Sodium [Dok] 100 mg PO BID PRN 11/10/16 [History] Furosemide [Lasix] 40 mg PO DAILY 11/10/16 [History] Isosorbide MONOnitrate (24 HR) [Imdur] 30 mg PO DAILY 11/10/16 [History] Melatonin 6 mg PO HS PRN 11/10/16 [History] Omeprazole [PriLOSEC] 20 mg PO DAILY 11/10/16 [History] Ranitidine HCl [Acid Wire Harness Design Engineer] 150 mg PO BID 11/10/16 [History] Acetaminophen [Tylenol] 1,000 mg PO BID PRN 01/22/17 [History] Olodaterol HCl [Striverdi Respimat] 2 puff IH DAILY 01/22/17 [History] Aspirin [Lo-Dose Aspirin EC] 81 mg PO DAILY 10/01/17 [History] Carvedilol 3.125 mg PO BID 10/01/17 [History] Diltiazem HCl [Diltiazem 24Hr Cd] 240 mg PO DAILY 10/01/17 [History] Cholecalciferol (D-3) [Vitamin D] 1,000 unit PO DAILY tablet 01/21/18 [Rx] amLODIPine [Norvasc] 5 mg PO DAILY tablet 01/21/18 [Rx] Allopurinol [Zyloprim 100 MG] 100 mg PO DAILY 05/02/18 [History] Apixaban [Eliquis] 5 mg PO BID 05/02/18 [History] Digoxin [Lanoxin] 0.125 mg PO DAILY 05/02/18 [History] Multivitamin [One Daily Essential] 1 tab PO DAILY 05/02/18 [History] metFORMIN [Glucophage] 500 mg PO BIDWM 05/02/18 [History] 3 Allergy/AdvReac Type Severity Reaction Status Date / Time acetaminophen [From Vicodin] Allergy See Verified 01/14/18 11:37 Comments hydrocodone [From Vicodin] Allergy See Verified 01/14/18 11:37 Comments moxifloxacin Allergy See Verified 01/14/18 11:37 Comments All Systems PM: A 10-system review of systems was performed and is negative for pertinent findings except as documented above in the HPI. - Constitutional Vitals: Temp Pulse Resp BP Pulse Ox 97.9 F 63 18 145/55 98 05/30/18 22:26 05/30/18 22:26 08/09/18 22:26 05/30/18 22:26 05/30/18 22:26 General appearance: Present: cooperative, A&O X 3, pleasant, no acute distress, answers questions appropriately - Head Head exam: Present: normal inspection - Eye Eye exam: Present: EOMI, normal appearance, conjuntiva pink - Neck Neck exam general surgery: Present: full ROM. Absent: tenderness - Respiratory Respiratory exam: Present: decreased breath sounds, wheezes. Absent: chest wall tenderness, CTAB, respiratory distress - Cardiovascular Cardiovascular exam: Present: RRR. Absent: diastolic murmur, systolic murmur - GI/Abdominal GI/Abdominal exam: Present: normal bowel sounds, soft. Absent: tenderness - Extremities Exam Extremities exam: Present: warm, radial pulses palpable and symmetrical. Absent : calf tenderness, pedal edema, tenderness - Neurological Exam Neurological exam: Present: no focal deficits, strengths equal and symetr throughout. Absent: facial droop, speech deficit - Skin Skin exam: Present: dry, normal color, warm Internal Med - H&P Results - Labs CBC & Chem 7: 05/30/18 22:09 05/30/18 22:09 Labs: Short CBC 05/30/18 Range/Units 22:09 Hgb 10.4 L D (12.9-16.9) g/dL Hct 31.6 L (37.5-50.1) % BMP 05/30/18 22:09 Sodium 122 L Potassium 5.0 Chloride 74 L Carbon Dioxide 43 H* BUN 13 Creatinine 0.64 L Glucose 116 H Calcium 8.8 - Assessment and plan (1) GI bleed Current Visit: Yes Status: Acute Assessment and plan: Hemoglobin 8.5 in the emergency room, Hemoccult positive. 2 units PRBCs given in the ER. Follow-up with serial CBCs Protonix drip GI consult for possible scope Continue to monitor for further signs of bleeding Qualifiers: GI bleed type/associated pathology: unspecified gastrointestinal hemorrhage type Qualified Code(s): K92.2 - Gastrointestinal hemorrhage, unspecified (2) Acute blood loss anemia Current Visit: No Status: Acute Assessment and plan: As above patient is Hemoccult positive and has had 2 days of bright red blood per rectum. Has a history of GI bleed in the past. Treatment as above Transfuse as needed (3) Hyponatremia with decreased serum osmolality Current Visit: No Status: Acute Assessment and plan: Similar to when patient was here in the hospital one month ago, patient had encephalopathy at that time which is not present currently. Patient was given 3 % normal saline after presenting with a sodium of 111. After correcting to 123 they stopped his fluids and monitored. Evaluation for possible malignancy and a review of SIADH causing medications revealed no obvious culprits. Repeat BMP this evening shows a sodium has improved to 122. Continue to monitor Consider hypertonic saline if indicated Get urine sodium and urine osmolality now Monitor for signs of encephalopathy (4) Afib Current Visit: No Status: Chronic Assessment and plan: Currently sinus and well controlled. Patient on Eliquis at home as well as digoxin and diltiazem. Hold Eliquis due to GI bleed Continue to monitor Qualifiers: Atrial fibrillation type: chronic Qualified Code(s): I48.2 - Chronic atrial fibrillation (5) Tobacco abuse disorder Current Visit: No Status: Chronic Assessment and plan: Patient is a 2 pack per day smoker Declined nicotine patch (6) COPD (chronic obstructive pulmonary disease) Current Visit: No Status: Chronic Assessment and plan: Patient wheezing on exam, has elevated CO2 on BMP. Breathing treatment as needed Oxygen via nasal cannula ABG Qualifiers: COPD type: unspecified COPD Qualified Code(s): J44.9 - Chronic obstructive pulmonary disease, unspecified (7) Hypercapnia Current Visit: Yes Status: Acute Assessment and plan: Elevated carbon dioxide on BMP Check ABG (8) History of alcohol abuse Current Visit: No Status: Suspected Assessment and plan: Has not had a drink for 20 years as per patient (9) DVT prophylaxis Current Visit: No Status: Acute Assessment and plan: SCDs - Time Spent With Patient Total time spent is greater than 50% in coordination of care (as documented) at patient's floor/unit and/or counseling patient: Greater than 35 minutes
[2018-05-31 00:29] LABS: Bilirubin,Urine Negative (Negative); Blood,Urine Trace (Negative); Clarity,Urine Clear (Clear); Color,Urine Yellow (Yellow); Glucose,Urine (UA) Normal (Normal); Ketones,Urine Negative (Negative); Leukocyte Esterase,Urine Small (Negative); Nitrite,Urine Negative (Negative); PH,Urine 7.5 pH Units (5.0-8.0); Protein,Urine Negative (Neg-Trace); Specific Gravity,Urine 1.023 (1.010-1.025); Urobilinogen,Urine Normal (Normal)
[2018-05-31 00:31] LABS: Bacteria,Urine None Seen per hpf (None-Few); Hyaline Casts,Urine None Seen per lpf (None-Few); RBC,Urine 0-3 per hpf (0-3); Squamous Epithelial Cell,Urine Moderate per lpf (None-Few)
[2018-05-31 02:05] LABS: Hematocrit 30.3 % (37.5-50.1); Mean Corpuscular Hemoglobin 27.5 pg (28.0-33.3); Mean Corpuscular Volume 83.5 fL (83.0-100.0); Mean Platelet Volume 9.1 fL (9.4-12.4); Platelet Count 292 K/mcL (140-400); Red Blood Count 3.63 M/mcL (4.19-5.50); Red Cell Distribution Width 15.2 % (11.5-14.5)
[2018-05-31 02:32] LABS: BUN/Creatinine Ratio 24 (6-26); Blood Urea Nitrogen 15 mg/dL (8-23); Calcium 9.2 mg/dL (8.6-10.3); Carbon Dioxide 41 mEq/L (23-29); Chloride 77 mEq/L (98-107); Glucose 157 mg/dL (70-105); Osmolality,Calculated 264 (280-300); Potassium 4.9 mEq/L (3.5-5.1); Sodium 125 mEq/L (136-145); eGFR For Non-African Americans > 60 (> 60)
[2018-05-31 03:01] LABS: ABG Base Excess 21 mEq/L (-2 to 3); ABG HCO3 49 mEq/L (21-27); ABG Oxygen Saturation 98 % (95-98); ABG PCO2 85 mmHg (35-45); ABG PH 7.37 pH Units (7.32-7.45); ABG PO2 117 mmHg (85-104); ABG TCO2 52 mEq/L (20-26)
[2018-05-31] MEDS: Pantoprazole 40 MG in 0.9 % Sodium Chloride Mini Bag 100 ML IVC SCH ×4 (04:30→22:24)
[2018-05-31] MEDS ORDERED: Insulin LISPRO 300 UNITS/3 ML VIAL SQ SCH (07:30)
[2018-05-31] MEDS ORDERED: Diltiazem CD (24hr) 240 MG CAPSULE PO SCH (09:00)
[2018-05-31] MEDS ORDERED: *HR* Digoxin 0.125 MG TABLET PO SCH (09:00)
[2018-05-31] MEDS ORDERED: SODIUM CHLORIDE/NAHCO3/KCL/PEG 4,000 ML SOLN.RECON PO ONE (09:15)
[2018-05-31 09:24] LABS: Basophils % 0.1 %; Eosinophils % 0.3 %; Hematocrit 27.4 % (37.5-50.1); Hemoglobin 9.4 g/dL (12.9-16.9); Immature Granulocytes % 0.6 % (0-4); Lymphocytes # 1.7 K/mcL (0.6-4.6); Lymphocytes % 16.3 %; Mean Corpuscular HGB Conc 34.3 g/dL (31.6-35.5); Mean Corpuscular Hemoglobin 29.1 pg (28.0-33.3); Mean Corpuscular Volume 84.8 fL (83.0-100.0); Mean Platelet Volume 9.7 fL (9.4-12.4); Monocytes # 0.8 K/mcL (0.0-1.3); Monocytes % 7.9 %; Neutrophils # 7.6 K/mcL (1.6-8.9); Nucleated Red Blood Cells 0.2 /100 WBC (0); Platelet Count 264 K/mcL (140-400); Red Blood Count 3.23 M/mcL (4.19-5.50); Red Cell Distribution Width 15.2 % (11.5-14.5); Segmented Neutrophils % 74.8 %
[2018-05-31 09:30] LABS: INR 1.3; Prothrombin Time 14.9 Seconds (9.4-12.1)
--- NOTE | 2018-05-31 10:05 | Electrocardiograph Report ---
[place] [id number] Test Date: 2018-05-30 Pat Name: Stefano Guardado Department: [id number] Room: 3A24 Gender: M Dehydrator: RENE : 1945 Requested By: Maya Petty Order Number: [id number] Reading MD: Kelvin Guan Measurements Intervals [place] Rate: 58 P: 70 [place]: 161 QRS: 35 QRSD: 82 T: 54 QT: 359 QTc: 357 Interpretive Statements SINUS BRADYCARDIA Electronically Signed On 05-31-2018 10:03:38 EDT by Kelvin Guan
--- NOTE | 2018-05-31 10:17 | Anesthesia Evaluation PreOp ---
Date of Encounter: 05/31/18 Time of Encounter: 10:15 - Past History Planned Operation: EGD/Colonoscopy Cardiac History: DC, CHF, Hyperlipidemia, Arrhythmia (AF), Other (PVD) Pulmonary History: COPD (on 3L O2 NC), Other (Chronic Resp Failure with hypoxia) GENERAL HELPER History: Other (Encephalopathy) Other Medical History: Hepatic (cirrhosis fom ETOH abuse, Hepatitis), Renal (CRD ), GERD, Other (Chronic Hyponatremia, Transfused 2 units PRBC 05/30) Anesthesia History: Past Anesthesia (R. hip TFN) Alcohol Use: none Drug use: none Medications and Allergies Albuterol Sulfate [Albuterol Inhaler] 2 puff IH Q6HR PRN 11/10/16 [History] Docusate Sodium [Dok] 100 mg PO BID PRN 11/10/16 [History] Furosemide [Lasix] 40 mg PO DAILY 11/10/16 [History] Isosorbide MONOnitrate (24 HR) [Imdur] 30 mg PO DAILY 11/10/16 [History] Melatonin 6 mg PO HS PRN 11/10/16 [History] Omeprazole [PriLOSEC] 20 mg PO DAILY 11/10/16 [History] Ranitidine HCl [Acid Bank Vault Clerk] 150 mg PO BID 11/10/16 [History] Acetaminophen [Tylenol] 1,000 mg PO BID PRN 01/22/17 [History] Olodaterol HCl [Striverdi Respimat] 2 puff IH DAILY 01/22/17 [History] Aspirin [Lo-Dose Aspirin EC] 81 mg PO DAILY 10/01/17 [History] Carvedilol 3.125 mg PO BID 10/01/17 [History] Diltiazem HCl [Diltiazem 24Hr Cd] 240 mg PO DAILY 10/01/17 [History] Cholecalciferol (D-3) [Vitamin D] 1,000 unit PO DAILY tablet 01/21/18 [Rx] amLODIPine [Norvasc] 5 mg PO DAILY tablet 01/21/18 [Rx] Allopurinol [Zyloprim 100 MG] 100 mg PO DAILY 05/02/18 [History] Apixaban [Eliquis] 5 mg PO BID 05/02/18 [History] Digoxin [Lanoxin] 0.125 mg PO DAILY 05/02/18 [History] Multivitamin [One Daily Essential] 1 tab PO DAILY 05/02/18 [History] metFORMIN [Glucophage] 500 mg PO BIDWM 05/02/18 [History] 3 Allergy/AdvReac Type Severity Reaction Status Date / Time acetaminophen [From Vicodin] Allergy See Verified 01/14/18 11:37 Comments hydrocodone [From Vicodin] Allergy See Verified 01/14/18 11:37 Comments moxifloxacin Allergy See Verified 01/14/18 11:37 Comments - Meds/Allergy Pre-op Review Medications Reviewed: Yes Allergies Reviewed: Yes Beta Blockers on Current Med List: Yes If Beta Blockers taken, Date/Time (Last Dose taken): 05/31/18 @ 12:56 Anesthesia Results - Labs 05/31/18 09:14 05/31/18 01:56 - Imaging EKG: report reviewed (SB) Anesthesia Exam Vital Signs/O2 Sat, Most Current Temp Pulse Resp BP Pulse Ox 97.3 F L 76 20 148/54 98 05/31/18 06:44 05/31/18 06:44 05/31/18 06:44 05/31/18 06:44 05/31/18 08:00 NPO (# of Hours): > 8 hrs Pain Scale: 0 Pain Scale Used: Numeric (1 - 10) - HEENT Pupil (Motor): Pupils equal, EOMI Mallampati: II Teeth: Edentulous Oral Opening: Greater than 3 - GENERAL HELPER LOC: Confused GENERAL HELPER Motor: Normal RUE, Normal LUE, Normal RLE, Normal LLE, Normal Face GENERAL HELPER Sensory: Normal: RUE, LUE, RLE, LLE, Face - Cardiac Rhythm: Irregular Murmur: None JVD: No Carotid Bruit: No - Pulmonary Breath Sounds: bilateral Clear Respiratory Effort: Symmetrical Anesthesia Assess/Plan ASA Score: 4 Modified Roland Scale for Level of Consciousness: Cooperative, oriented, and tranquil Anesthetic Plan: MAC Autologous Blood: Yes Monitoring Plan: Standard Monitors Recovery Plan: Other
--- NOTE | 2018-05-31 10:46 | Gastroenterology Consult Note ---
<Freedom Suarez - Last Filed: 05/31/18 10:43> Date of Encounter: 05/31/18 Time of Encounter: 10:00 - Assessment and plan (1) Lower gastrointestinal hemorrhage Status: Acute Assessment and plan: Plan for colonoscopy today. If unable tolerate NuLytely please use MiraLAX prep. If not clear by 13:30, give 2 tap water enemas. (2) Anemia Status: Chronic Assessment and plan: On admission, Hgb 8.5, FOBT was positive in the ED, and INR 1.9. He received 2 units PRBC and Hgb came up to 10.4. This AM, Hgb 10. Continue to monitor CBC and transfuse PRBC as needed. Qualifiers: Anemia type: unspecified type Qualified Code(s): D64.9 - Anemia, unspecified (3) COPD (chronic obstructive pulmonary disease) Status: Acute Qualifiers: COPD type: unspecified COPD Qualified Code(s): J44.9 - Chronic obstructive pulmonary disease, unspecified - Time Spent With Patient Total time spent is greater than 50% in coordination of care (as documented) at patient's floor/unit and/or counseling patient: GI History of Present Illness - Data of Consult Patient: known to practice within the last 3 years Consult date: 05/31/18 Requesting Physician: Gilmar Scales MD - Consult Narrative Reason for consult: GI Bleed History of present illness: Mr. Guardado is a 72 year old male with PMHx of arthritis, Afib on Eliquis, COPD, CAD, GERD, HLD, HTN, alcohol abuse (per patient he has not had a drink in 20 years), NM, who presented to the ED with BRBPR. Patient states BRBPR started 3 days prior to admission and continued to worsen. He denies fever, chills, chest pain, nausea, vomiting, diarrhea, constipation. CTA A/P shows extensive diverticulosis of the large bowel, especially in the region of the sigmoid colon. On admission, Hgb 8.5, FOBT was positive in the ED, and INR 1.9. He received 2 units PRBC and Hgb came up to 10.4. This AM, Hgb 10. Procedures: Colonoscopy 10/02/2017 Dr. 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 NSAIDs: ASA, ibuprofen Anticoagulation: Eliquis Past Med Surg Social Fam HX - Past Medical History Medical history: arthritis, cirrhosis, COPD, coronary artery disease, GERD, hepatitis, hyperlipidemia, hypertension, liver disease, myocardial infarction, peripheral artery disease, renal disease, other Additional medical history: hep c, pulmonary coin lesion, atopic dermatitits, ED , gout, OA, Psychiatric history: anxiety - Past Surgical History Surgical History: no surgical history Additional surgical history: Right Hip 12/2017 - Social History Smoking Status: Former smoker Smokeless Tobacco Status: Yes Alcohol use: none Drug use: none - Gastrointestinal Gastrointestinal: Present: as per HPI - Constitutional Constitutional: as per HPI - EENT Eyes: as per HPI Ears: Present: as per HPI Nose, mouth and throat: Present: as per HPI - Cardiovascular Cardiovascular ROS: Present: as per HPI - Respiratory Respiratory IM: Present: as per HPI - Genitourinary Genitourinary: Absent: change in color, Urinary frequency - Neurological ROS Neurological GI: Present: as per HPI - Hematologic/Lymphatic Hematologic/Lymphatic pediatric: Present: as per HPI - Musculoskeletal Musculoskeletal ROS GI: Present: as per HPI - Integumentary Integumentary GI: Present: as per HPI - Psychiatric ROS Psychiatric GI: Present: as per HPI - Endocrine Endocrine IM: Present: as per HPI - Constitutional Vitals: Temp Pulse Resp BP Pulse Ox 97.5 F L 73 20 149/77 92 05/31/18 10:31 05/31/18 10:31 05/31/18 10:31 05/31/18 10:31 05/31/18 10:31 General appearance: Present: cooperative, A&O X 3, no acute distress, answers questions appropriately - Head Head exam: Present: atraumatic, normocephalic - Eye Eye exam: Present: normal appearance, sclera anicteric - ENT ENT exam: Present: mucous membranes dry - Neck Neck exam general surgery: Present: normal inspection, trachea midline - Respiratory Respiratory exam: Present: decreased breath sounds, wheezes Additional comments: Labored - Cardiovascular Cardiovascular exam: Present: RRR, +S1, +S2 - GI/Abdominal GI/Abdominal exam: Present: soft, no peritoneal signs. Absent: distended, firm , guarding, tenderness - Rectal Rectal exam: Present: deferred - Extremities Exam Extremities exam: Present: warm - Neurological Exam Neurological exam: Present: no focal deficits - Psychiatric Psychiatric exam: Present: normal affect, normal mood - Skin Skin exam: Present: dry, intact, normal color, warm Results - Labs CBC & Chem 7: 05/31/18 09:14 05/31/18 01:56 Labs: Last Result Calcium 9.2 mg/dL (8.6-10.3) 05/31/18 01:56 Troponin I < 0.03 ng/mL (< 0.04) 05/30/18 15:13 Entire Visit Hgb 9.4 g/dL (12.9-16.9) L 05/31/18 09:14 Hct 27.4 % (37.5-50.1) L 05/31/18 09:14 PT 14.9 Seconds (9.4-12.1) H 05/31/18 09:14 Total Bilirubin 0.7 mg/dL (0.3-1.0) 05/30/18 15:13 AST 17 Units/L (13-39) 05/30/18 15:13 ALT 14 Units/L (7-52) 05/30/18 15:13 Lipase 6 Units/L (11-82) L 05/30/18 15:13 - ABG ABG results: ABG ABG pH 7.37 pH Units (7.32-7.45) 05/31/18 02:57 ABG pCO2 85 mmHg (35-45) H* 05/31/18 02:57 ABG pO2 117 mmHg (85-104) H 05/31/18 02:57 ABG O2 Saturation 98 % (95-98) 05/31/18 02:57 PT/INR, D-dimer PT 14.9 Seconds (9.4-12.1) H 05/31/18 09:14 Consult Discharge Plan - Plan Referrals: Antione Perez MD [Partnered Physician] - (sent web request on 05-31-18 @ [phone]) [place],PCP [Primary Care Provider] - 06/07/18 9:30 am Prescriptions: Furosemide [Lasix] 20 mg PO DAILY #30 tablet <Antione Perez - Last Filed: 06/10/18 04:40> Date of Encounter: 05/31/18 - Time Spent With Patient Total time spent is greater than 50% in coordination of care (as documented) at patient's floor/unit and/or counseling patient: GI History of Present Illness - Data of Consult Requesting Physician: Jean Peñaloza - Consult Narrative History of present illness: Mr. Guardado is a 72 year old male - Constitutional Vitals: Temp Pulse Resp BP Pulse Ox 98.0 F 52 18 121/50 100 06/04/18 10:56 06/04/18 10:56 06/04/18 11:25 06/04/18 10:56 06/04/18 11:25 Results - Labs CBC & Chem 7: 06/04/18 04:21 06/04/18 04:21 Labs: Last Result Calcium 8.5 mg/dL (8.6-10.3) L 06/04/18 04:21 Troponin I < 0.03 ng/mL (< 0.04) 05/30/18 15:13 Entire Visit Hgb 9.0 g/dL (12.9-16.9) L 06/04/18 04:21 Hct 27.2 % (37.5-50.1) L 06/04/18 04:21 PT 14.9 Seconds (9.4-12.1) H 05/31/18 09:14 Total Bilirubin 0.7 mg/dL (0.3-1.0) 05/30/18 15:13 AST 17 Units/L (13-39) 05/30/18 15:13 ALT 14 Units/L (7-52) 05/30/18 15:13 Lipase 6 Units/L (11-82) L 05/30/18 15:13 - ABG ABG results: ABG ABG pH 7.37 pH Units (7.32-7.45) 05/31/18 02:57 ABG pCO2 85 mmHg (35-45) H* 05/31/18 02:57 ABG pO2 117 mmHg (85-104) H 05/31/18 02:57 ABG O2 Saturation 98 % (95-98) 05/31/18 02:57 PT/INR, D-dimer PT 14.9 Seconds (9.4-12.1) H 05/31/18 09:14 - Attending Attestation Mr Guardado presents with another episode of rectal bleeding. The last time he underwent colonoscopy by myself in September 2017 and an AVM in the cecum was found and ablated. Plan colonoscopy today looking for AVMs, diverticular bleed etc. Thank you. I have personally performed a face to face evaluation on this patient. I have reviewed and agree with the care plan. History and Exam by me shows:
[2018-05-31] MEDS ORDERED: Dextrose Gel 15 GM/37.5 ML TUBE PO PRN ×2 (11:41)
[2018-05-31] MEDS ORDERED: Melatonin 3 MG TABLET PO PRN (11:41)
[2018-05-31] MEDS ORDERED: *HR* Dextrose 50 % in Water (Syg) 50 ML SYRINGE IVP PRN (11:41)
[2018-05-31] MEDS ORDERED: D5% in Water 1,000 ML IVC PRN (11:41)
[2018-05-31] MEDS ORDERED: Naloxone 0.4 MG/ML INJ IVP PRN (11:41)
[2018-05-31] MEDS ORDERED: Ipratropium/Albuterol Neb 3 ML IH PRN (11:41)
--- NOTE | 2018-05-31 13:34 | Internal Med Progress Note ---
Hospitalist Progress Note - Encounter Date of Encounter: 05/31/18 Time of Encounter: 08:10 - Subjective Interval History: Patient has been having multiple episodes of bloody bowel movements since this morning. He also has shortness of breath. No nausea or vomiting. Denies any abdominal pain. He was recommended BiPAP but he refuses to wear it as he feels that he is choking when he wears a mask. He does understand the risks and wishes to be intubated if he develops respiratory distress. No dizziness or lightheadedness. - Exam Vitals: Temp Pulse Resp BP Pulse Ox 98.0 F 83 18 156/80 98 05/31/18 12:08 05/31/18 12:08 05/31/18 12:08 05/31/18 12:08 05/31/18 12:08 Exam: General: Patient is alert, no acute distress, oriented x 3, disheveled Head: atraumatic, normocephalic, Eye: normal appearance, PERRL, no scleral icterus, no conjunctival injection ENT: mucous membranes moist, normal external ear exam Neck: normal inspection, trachea midline, full ROM, no carotid bruits Chest: normal inspection, symmetric chest rise Respiratory: Good respiratory effort. Decreased breath sounds at both bases. Prolonged expiratory phase, bilateral wheezing Cardiovascular: Regular rate and rhythm. s1 and s2 No clicks, rubs, gallops, or murmurs. No pedal edema Abdomen: Abdomen is soft, nontender. Bowel sounds are present Musculoskeletal: Spontaneously moving all extremities. Skin: warm, dry, intact. Neuro: Alert oriented x 3 normal cranial nerves, no focal deficits Psych: Patient's affect is normal - Assessment and Plan (1) GI bleed Current Visit: Yes Status: Acute Assessment and Plan: Patient with continued lower GI bleed. Discussed with GI. Plan for doing endoscopy later today. Start bowel prep. Keep nothing by mouth after 1 PM. Holding anticoagulation. INR 1.3. High risk for complications. Will transfer to stepdown unit. (2) Acute blood loss anemia Current Visit: Yes Status: Acute Assessment and Plan: Due to GI bleed. Patient has had continued lady bowel movements. Hemoglobin 10 this morning after receiving 2 units of PRBC. We will continue to monitor blood counts. GI consulted. (3) Afib Current Visit: Yes Status: Chronic Assessment and Plan: Rate controlled. Continue home medications. Hold anticoagulation (4) Chronic respiratory failure Current Visit: Yes Status: Acute Assessment and Plan: With hypoxia and hypercapnia. Patient has chronic respiratory acidosis- compensated. ABG shows hypercapnia. Recommended BiPAP but patient does not wish to use this. Remains full code at this time. (5) COPD (chronic obstructive pulmonary disease) Current Visit: Yes Status: Chronic Assessment and Plan: Continue bronchodilators. O2 supplementation. (6) DVT prophylaxis Current Visit: Yes Status: Acute Assessment and Plan: With SCDs (7) Hyponatremia with decreased serum osmolality Current Visit: Yes Status: Acute Assessment and Plan: Likely due to chronic Lasix use. We will hold Lasix. Sodium [address] him on IV fluids for now. (8) Tobacco abuse disorder Current Visit: No Status: Chronic Assessment and Plan: Patient has been counseled about cessation - Time Spent with Patient Total time spent is greater than 50% in coordination of care (as documented) at patient's floor/unit and/or counseling patient: Plan of Care Discussed with: individual pension consultant Internal Medicine: Result - Labs CBC & Chem 7: 05/31/18 09:14 05/31/18 01:56 Labs: Short CBC 05/31/18 05/31/18 Range/Units 01:56 09:14 WBC 15.4 H 10.2 (4.3-11.1) K/mcL Hgb 10.0 L 9.4 L (12.9-16.9) g/dL Hct 30.3 L 27.4 L (37.5-50.1) % Plt Count 292 264 (140-400) K/mcL Neutrophils # 7.6 (1.6-8.9) K/mcL BMP 05/31/18 01:56 Sodium 125 L Potassium 4.9 Chloride 77 L Carbon Dioxide 41 H* BUN 15 Creatinine 0.62 L Glucose 157 H Calcium 9.2 Urine 05/30/18 Range/Units 23:39 Urine Color Yellow (Yellow) Urine Clarity Clear (Clear) Urine pH 7.5 (5.0-8.0) pH Units Ur Specific [place] 1.023 (1.010-1.025) Urine Protein Negative (Neg-Trace) mg/dL Urine Glucose (UA) Normal (Normal) mg/dL - ABG Interpretation ABG results: ABG ABG pH 7.37 pH Units (7.32-7.45) 05/31/18 02:57 ABG pCO2 85 mmHg (35-45) H* 05/31/18 02:57 ABG pO2 117 mmHg (85-104) H 05/31/18 02:57 ABG O2 Saturation 98 % (95-98) 05/31/18 02:57 PT/INR, D-dimer PT 14.9 Seconds (9.4-12.1) H 05/31/18 09:14 Consult Discharge Plan - Plan Referrals: Antione Perez MD [Partnered Physician] - (sent web request on 05-31-18 @ [phone]) [place],PCP [Primary Care Provider] - 06/07/18 9:30 am (1) GI bleed Qualifiers: GI bleed type/associated pathology: anorectal hemorrhage Qualified Code(s): K62.5 - Hemorrhage of anus and rectum (3) Afib Qualifiers: Atrial fibrillation type: chronic Qualified Code(s): I48.2 - Chronic atrial fibrillation (4) Chronic respiratory failure Qualifiers: Respiratory failure complication: hypoxia and hypercapnia Qualified Code(s): J96.11 - Chronic respiratory failure with hypoxia; J96.12 - Chronic respiratory failure with hypercapnia (5) COPD (chronic obstructive pulmonary disease) Qualifiers: COPD type: unspecified COPD Qualified Code(s): J44.9 - Chronic obstructive pulmonary disease, unspecified
[2018-05-31] MEDS ORDERED: Propofol 500 MG/50 ML INFUS..BTL ONE (14:13)
[2018-05-31] MEDS ORDERED: Lidocaine -MPF 2% 2 ML VIAL ONE (14:19)
[2018-05-31] MEDS ORDERED: EPHEDrine 50 MG/ML VIAL ONE (14:45)
[2018-05-31] MEDS ORDERED: *HR* PHENYLEPHRINE 1,000 MCG/10 ML SYRINGE IVP ONE (14:45)
[2018-05-31] MEDS: Ipratropium/Albuterol Neb 3 ML IH SCH ×2 (16:47→21:57)
[2018-05-31] MEDS: Ringers Solution, Lactated 1,000 ML IVC SCH (17:02)
[2018-05-31] MEDS: Insulin LISPRO 300 UNITS/3 ML VIAL SQ SCH (17:03)
[2018-05-31 19:01] LABS: Hematocrit 25.7 % (37.5-50.1); Hemoglobin 8.5 g/dL (12.9-16.9)
[2018-06-01 03:29] LABS: Basophils % 0.3 %; Eosinophils # 0.1 K/mcL (0.0-0.6); Eosinophils % 1.2 %; Hematocrit 19.9 % (37.5-50.1); Immature Granulocytes % 0.7 % (0-4); Lymphocytes # 2.2 K/mcL (0.6-4.6); Lymphocytes % 19.9 %; Mean Corpuscular HGB Conc 33.7 g/dL (31.6-35.5); Mean Corpuscular Hemoglobin 28.5 pg (28.0-33.3); Mean Corpuscular Volume 84.7 fL (83.0-100.0); Mean Platelet Volume 10.3 fL (9.4-12.4); Monocytes # 1.8 K/mcL (0.0-1.3); Monocytes % 16.3 %; Neutrophils # 6.8 K/mcL (1.6-8.9); Platelet Count 215 K/mcL (140-400); Red Blood Count 2.35 M/mcL (4.19-5.50); Red Cell Distribution Width 15.5 % (11.5-14.5); Segmented Neutrophils % 61.6 %
[2018-06-01 03:30] LABS: Hemoglobin 6.7 g/dL (12.9-16.9)
[2018-06-01] MEDS: Pantoprazole 40 MG in 0.9 % Sodium Chloride Mini Bag 100 ML IVC SCH ×2 (03:35→08:48)
[2018-06-01 03:47] LABS: BUN/Creatinine Ratio 23 (6-26); Blood Urea Nitrogen 12 mg/dL (8-23); Calcium 8.4 mg/dL (8.6-10.3); Carbon Dioxide 40 mEq/L (23-29); Chloride 83 mEq/L (98-107); Glucose 95 mg/dL (70-105); Osmolality,Calculated 262 (280-300); Potassium 4.7 mEq/L (3.5-5.1); Sodium 126 mEq/L (136-145); eGFR For Non-African Americans > 60 (> 60)
[2018-06-01] MEDS: Ipratropium/Albuterol Neb 3 ML IH SCH ×4 (04:24→21:50)
[2018-06-01] MEDS: Ringers Solution, Lactated 1,000 ML IVC SCH ×2 (06:35→18:44)
[2018-06-01] MEDS ORDERED: 0.9 % Sodium Chloride 250 ML ONE ×2 (07:44→11:48)
[2018-06-01] MEDS: Diltiazem CD (24hr) 240 MG CAPSULE PO SCH (07:54)
[2018-06-01] MEDS: *HR* Digoxin 0.125 MG TABLET PO SCH (07:55)
[2018-06-01] MEDS: Insulin LISPRO 300 UNITS/3 ML VIAL SQ SCH ×3 (07:56→17:20)
--- NOTE | 2018-06-01 12:37 | Internal Med Progress Note ---
Hospitalist Progress Note - Encounter Date of Encounter: 06/01/18 Time of Encounter: 11:45 - Subjective Interval History: Patient is awake and alert. Denies any new episodes of bloody bowel movements. Underwent colonoscopy yesterday without any complications. Shortness of breath improving. Denies any fevers or chills. No chest pain. No abdominal pain. - Exam Vitals: Temp Pulse Resp BP Pulse Ox 98.4 F 64 16 136/60 94 06/01/18 12:21 06/01/18 12:21 06/01/18 12:21 06/01/18 12:21 06/01/18 12:21 Exam: General: Patient is alert, disheveled, oriented x 3 Head: atraumatic, normocephalic, Eye: normal appearance, PERRL, no scleral icterus, no conjunctival injection Neck: normal inspection, trachea midline, full ROM, no carotid bruits Chest: normal inspection, symmetric chest rise Respiratory: Bilateral wheezing. Decreased breath sounds at both bases. Cardiovascular: Regular rate and rhythm. s1 and s2 No clicks, rubs, gallops, or murmurs. No pedal edema Abdomen: Abdomen is soft, nontender. Bowel sounds are present Musculoskeletal: Spontaneously moving all extremities Skin: warm, dry, intact. Pallor Neuro: Alert oriented x 3 normal cranial nerves, no focal deficits Psych: Patient's affect is normal - Assessment and Plan (1) GI bleed Current Visit: Yes Status: Acute Assessment and Plan: Most likely diverticular bleed. Per colonoscopy and no active bleeding identified but blood and clots were found in the colon with several diverticula. No active bleeding. On clear liquid diet. Continue IV. PPI. Will change to twice daily dosing. High risk for complications. Stop eliquis completely. Although patient does have atrial fibrillation and high risk for stroke, he is a poor candidate for anticoagulation given that he has had 2 episodes of major bleeding within the past 6-8 months. (2) Acute blood loss anemia Current Visit: Yes Status: Acute Assessment and Plan: Hemoglobin 6.7 today. Will transfuse 2 units PRBC. Continue to monitor hemoglobin levels. Due to GI bleed. (3) Afib Current Visit: Yes Status: Chronic Assessment and Plan: Rate controlled. Continue carvedilol. Continue Cardizem. Stop anticoagulation. Patient remains a poor candidate for anticoagulation given that he has had 2 episodes of major bleeding within the past 6-8 months. Does have high risk for stroke 2. Resume aspirin when hemoglobin stabilizes. (4) Chronic respiratory failure Current Visit: Yes Status: Chronic Assessment and Plan: Continue O2 supplementation. Patient does have chronic hypercarbia. (5) COPD (chronic obstructive pulmonary disease) Current Visit: Yes Status: Chronic Assessment and Plan: On bronchodilators as needed. Not in acute exacerbation at this time. (6) DVT prophylaxis Current Visit: Yes Status: Acute Assessment and Plan: With SCDs (7) Hyponatremia with decreased serum osmolality Current Visit: Yes Status: Acute Assessment and Plan: Improving. Sodium 126 today. Continue to hold Lasix for now. (8) Tobacco abuse disorder Current Visit: Yes Status: Chronic - Time Spent with Patient Total time spent is greater than 50% in coordination of care (as documented) at patient's floor/unit and/or counseling patient: Plan of Care Discussed with: patient Internal Medicine: Result - Labs CBC & Chem 7: 06/01/18 02:54 06/01/18 02:54 Labs: Short CBC 05/31/18 06/01/18 Range/Units 18:39 02:54 WBC 11.0 (4.3-11.1) K/mcL Hgb 8.5 L 6.7 L D (12.9-16.9) g/dL Hct 25.7 L 19.9 L (37.5-50.1) % Plt Count 215 (140-400) K/mcL Neutrophils # 6.8 (1.6-8.9) K/mcL BMP 06/01/18 02:54 Sodium 126 L Potassium 4.7 Chloride 83 L Carbon Dioxide 40 H* BUN 12 Creatinine 0.53 L Glucose 95 Calcium 8.4 L - ABG Interpretation ABG results: ABG ABG pH 7.37 pH Units (7.32-7.45) 05/31/18 02:57 ABG pCO2 85 mmHg (35-45) H* 05/31/18 02:57 ABG pO2 117 mmHg (85-104) H 05/31/18 02:57 ABG O2 Saturation 98 % (95-98) 05/31/18 02:57 PT/INR, D-dimer PT 14.9 Seconds (9.4-12.1) H 05/31/18 09:14 - VTE Documentation of Mechanical Device: Intermittent pneumatic compression device Consult Discharge Plan - Plan Referrals: Antione Perez MD [Partnered Physician] - (sent web request on 05-31-18 @ [phone]) [facility] [Primary Care Provider] - 06/07/18 9:30 am (1) GI bleed Qualifiers: GI bleed type/associated pathology: anorectal hemorrhage Qualified Code(s): K62.5 - Hemorrhage of anus and rectum (3) Afib Qualifiers: Atrial fibrillation type: chronic Qualified Code(s): I48.2 - Chronic atrial fibrillation (4) Chronic respiratory failure Qualifiers: Respiratory failure complication: hypoxia and hypercapnia Qualified Code(s): J96.11 - Chronic respiratory failure with hypoxia; J96.12 - Chronic respiratory failure with hypercapnia (5) COPD (chronic obstructive pulmonary disease) Qualifiers: COPD type: unspecified COPD Qualified Code(s): J44.9 - Chronic obstructive pulmonary disease, unspecified
[2018-06-01 14:03] LABS: Total Volume 24 Hour,Urine 1.59 Liters (0.80-1.80)
[2018-06-01 14:28] LABS: Sodium, Urine 48.4 mEq/L
[2018-06-01 16:28] LABS: Hematocrit 27.7 % (37.5-50.1)
[2018-06-01 16:31] LABS: Hemoglobin 9.9 g/dL (12.9-16.9)
[2018-06-02] MEDS: Ipratropium/Albuterol Neb 3 ML IH SCH ×4 (03:40→22:56)
[2018-06-02 04:07] LABS: Basophils % 0.3 %; Eosinophils # 0.3 K/mcL (0.0-0.6); Eosinophils % 2.7 %; Hematocrit 27.6 % (37.5-50.1); Hemoglobin 9.4 g/dL (12.9-16.9); Immature Granulocytes % 1.4 % (0-4); Lymphocytes # 1.9 K/mcL (0.6-4.6); Lymphocytes % 18.9 %; Mean Corpuscular HGB Conc 34.1 g/dL (31.6-35.5); Mean Corpuscular Hemoglobin 29.1 pg (28.0-33.3); Mean Corpuscular Volume 85.4 fL (83.0-100.0); Mean Platelet Volume 9.6 fL (9.4-12.4); Monocytes # 1.6 K/mcL (0.0-1.3); Monocytes % 16.3 %; Platelet Count 229 K/mcL (140-400); Red Blood Count 3.23 M/mcL (4.19-5.50); Red Cell Distribution Width 15.1 % (11.5-14.5); Segmented Neutrophils % 60.4 %
[2018-06-02 04:16] LABS: BUN/Creatinine Ratio 10 (6-26); Blood Urea Nitrogen 5 mg/dL (8-23); Calcium 8.4 mg/dL (8.6-10.3); Carbon Dioxide 32 mEq/L (23-29); Chloride 90 mEq/L (98-107); Glucose 108 mg/dL (70-105); Osmolality,Calculated 260 (280-300); Potassium 3.8 mEq/L (3.5-5.1); Sodium 126 mEq/L (136-145); eGFR For Non-African Americans > 60 (> 60)
[2018-06-02] MEDS: Pantoprazole 40 MG VIAL IVP SCH ×2 (05:34→17:26)
[2018-06-02] MEDS: Insulin LISPRO 300 UNITS/3 ML VIAL SQ SCH ×3 (07:13→17:21)
[2018-06-02] MEDS: *HR* Digoxin 0.125 MG TABLET PO SCH (07:14)
[2018-06-02] MEDS: Diltiazem CD (24hr) 240 MG CAPSULE PO SCH (07:33)
[2018-06-02] MEDS ORDERED: Aminoglycoside Consult 1 EACH MC ONE (08:56)
--- NOTE | 2018-06-02 13:25 | Internal Med Progress Note ---
Hospitalist Progress Note - Encounter Date of Encounter: 06/02/18 Time of Encounter: 11:45 - Subjective Interval History: Overall, patient feels much better. He is not so that the bowel movements. Denies any dizziness or weakness. Wants to advance diet. - Exam Vitals: Temp Pulse Resp BP Pulse Ox 97.9 F 60 17 117/68 100 06/02/18 11:08 06/02/18 11:08 06/02/18 11:08 06/02/18 11:08 06/02/18 11:08 Exam: General: Patient is alert, disheveled no acute distress, oriented x 3 Head: atraumatic, normocephalic, Eye: normal appearance, PERRL, no scleral icterus, no conjunctival injection Neck: normal inspection, trachea midline, full ROM, no carotid bruits Chest: normal inspection, symmetric chest rise Respiratory: Good respiratory effort. Bilateral wheezing Cardiovascular: Regular rate and rhythm. s1 and s2 No clicks, rubs, gallops, or murmurs. No pedal edema Abdomen: Abdomen is soft, nontender. Bowel sounds are present Musculoskeletal: Spontaneously moving all extremities Skin: warm, dry, intact. Neuro: Alert oriented x 3 normal cranial nerves, no focal deficits Psych: Patient's affect is normal - Assessment and Plan (1) GI bleed Current Visit: Yes Status: Acute Assessment and Plan: Appears to be stabilizing. Hemoglobin 9.4 this morning. We will continue to monitor. Advance diet as tolerated. From possible diverticular bleed. Continue PPI. Moderate risk for complications. Stopped anticoagulation (2) Acute blood loss anemia Current Visit: Yes Status: Acute Assessment and Plan: Hemoglobin levels stable now. We will continue to monitor. If remains stable overnight, plan on discharge tomorrow. (3) Afib Current Visit: Yes Status: Chronic Assessment and Plan: Rate controlled. Stop anticoagulation due to acute GI bleed (4) Chronic respiratory failure Current Visit: Yes Status: Chronic Assessment and Plan: Continue O2 supplementation. (5) COPD (chronic obstructive pulmonary disease) Current Visit: Yes Status: Chronic Assessment and Plan: Continue bronchodilators. (6) DVT prophylaxis Current Visit: Yes Status: Acute Assessment and Plan: SCDs (7) Hyponatremia with decreased serum osmolality Current Visit: Yes Status: Acute Assessment and Plan: Stable. Sodium 126 today. We will stop IV fluids. Continue to monitor sodium levels (8) Tobacco abuse disorder Current Visit: Yes Status: Chronic - Time Spent with Patient Total time spent is greater than 50% in coordination of care (as documented) at patient's floor/unit and/or counseling patient: Plan of Care Discussed with: patient Internal Medicine: Result - Labs CBC & Chem 7: 06/02/18 03:31 06/02/18 03:31 Labs: Short CBC 06/01/18 06/02/18 Range/Units 15:54 03:31 WBC 9.9 (4.3-11.1) K/mcL Hgb 9.9 L D 9.4 L (12.9-16.9) g/dL Hct 27.7 L 27.6 L (37.5-50.1) % Plt Count 229 (140-400) K/mcL Neutrophils # 6.0 (1.6-8.9) K/mcL BMP 06/02/18 03:31 Sodium 126 L Potassium 3.8 Chloride 90 L Carbon Dioxide 32 H BUN 5 L Creatinine 0.50 L Glucose 108 H Calcium 8.4 L - ABG Interpretation ABG results: ABG ABG pH 7.37 pH Units (7.32-7.45) 05/31/18 02:57 ABG pCO2 85 mmHg (35-45) H* 05/31/18 02:57 ABG pO2 117 mmHg (85-104) H 05/31/18 02:57 ABG O2 Saturation 98 % (95-98) 05/31/18 02:57 PT/INR, D-dimer PT 14.9 Seconds (9.4-12.1) H 05/31/18 09:14 - VTE Documentation of Mechanical Device: Intermittent pneumatic compression device Consult Discharge Plan - Plan Referrals: Antione Perez MD [Partnered Physician] - (sent web request on 05-31-18 @ [phone]) [place],PCP [Primary Care Provider] - 06/07/18 9:30 am (1) GI bleed Qualifiers: GI bleed type/associated pathology: anorectal hemorrhage Qualified Code(s): K62.5 - Hemorrhage of anus and rectum (3) Afib Qualifiers: Atrial fibrillation type: chronic Qualified Code(s): I48.2 - Chronic atrial fibrillation (4) Chronic respiratory failure Qualifiers: Respiratory failure complication: hypoxia and hypercapnia Qualified Code(s): J96.11 - Chronic respiratory failure with hypoxia; J96.12 - Chronic respiratory failure with hypercapnia (5) COPD (chronic obstructive pulmonary disease) Qualifiers: COPD type: unspecified COPD Qualified Code(s): J44.9 - Chronic obstructive pulmonary disease, unspecified
[2018-06-02] MEDS: Amoxicillin 500 MG CAPSULE PO SCH ×2 (15:03→19:50)
[2018-06-02 16:08] LABS: Hematocrit 31.2 % (37.5-50.1); Hemoglobin 10.3 g/dL (12.9-16.9)
[2018-06-02] MEDS: Lactobacillus 1 EACH CAP.SPRINK PO SCH (19:50)
[2018-06-03 00:37] LABS: Basophils % 0.3 %; Eosinophils # 0.2 K/mcL (0.0-0.6); Eosinophils % 2.3 %; Hematocrit 27.3 % (37.5-50.1); Hemoglobin 9.2 g/dL (12.9-16.9); Lymphocytes % 22.2 %; Mean Corpuscular HGB Conc 33.7 g/dL (31.6-35.5); Mean Corpuscular Hemoglobin 29.6 pg (28.0-33.3); Mean Corpuscular Volume 87.8 fL (83.0-100.0); Mean Platelet Volume 9.3 fL (9.4-12.4); Monocytes # 1.5 K/mcL (0.0-1.3); Monocytes % 16.9 %; Nucleated Red Blood Cells 0.2 /100 WBC (0); Platelet Count 229 K/mcL (140-400); Red Blood Count 3.11 M/mcL (4.19-5.50); Red Cell Distribution Width 15.6 % (11.5-14.5); Segmented Neutrophils % 57.3 %
[2018-06-03 00:58] LABS: BUN/Creatinine Ratio 11 (6-26); Blood Urea Nitrogen 7 mg/dL (8-23); Calcium 8.2 mg/dL (8.6-10.3); Carbon Dioxide 33 mEq/L (23-29); Chloride 94 mEq/L (98-107); Glucose 175 mg/dL (70-105); Osmolality,Calculated 272 (280-300); Potassium 4.2 mEq/L (3.5-5.1); Sodium 130 mEq/L (136-145); eGFR For Non-African Americans > 60 (> 60)
[2018-06-03] MEDS: Ipratropium/Albuterol Neb 3 ML IH SCH ×4 (03:43→21:13)
[2018-06-03] MEDS: Pantoprazole 40 MG VIAL IVP SCH ×2 (06:06→17:01)
[2018-06-03] MEDS: Amoxicillin 500 MG CAPSULE PO SCH ×3 (07:32→21:42)
[2018-06-03] MEDS: Insulin LISPRO 300 UNITS/3 ML VIAL SQ SCH ×3 (07:32→17:03)
[2018-06-03] MEDS: *HR* Digoxin 0.125 MG TABLET PO SCH (07:33)
[2018-06-03] MEDS: Diltiazem CD (24hr) 240 MG CAPSULE PO SCH (07:33)
[2018-06-03] MEDS: Lactobacillus 1 EACH CAP.SPRINK PO SCH ×2 (07:33→21:42)
[2018-06-03] MEDS ORDERED: Albuterol 2.5 MG/3 ML NEBULIZER IH PRN (11:14)
--- NOTE | 2018-06-03 14:03 | Internal Med Progress Note ---
Hospitalist Progress Note - Encounter Date of Encounter: 06/03/18 Time of Encounter: 14:03 - Subjective Interval History: Patient with history of coronary artery disease, COPD, hypertension, atrial fibrillation, hyperlipidemia, peripheral arterial disease was hospitalized here with lower GI bleed. He been having bright red bleeding per rectum. On initial ER visit, his hemoglobin was 8.5, sodium 120. CT of the abdomen showed diverticulosis. Patient received blood transfusion and then admitted here. He continued to have bloody bowel movements and so GI did a colonoscopy on Sunday. He was found to have a lot of old blood in his colon with no signs of active bleeding. Most likely patient had diverticular bleeding. He received a total of 4 units PRBC transfusion during his hospitalization here. His hemoglobin levels are now stable. Patient has been on Eliquis for anticoagulation for atrial fibrillation. Eliquis has now been stopped. Patient has had 2 episodes of severe GI bleeding within the 8 months. As such I recommend stopping anticoagulation. Patient will instead be placed on aspirin. Awaiting physical therapy evaluation. Patient is awake and alert today. Doing well overall. No new episodes of bloody bowel movements. Denies any new complaints at this time. - Exam Vitals: Temp Pulse Resp BP Pulse Ox 98.2 F 58 16 127/52 100 06/03/18 11:46 06/03/18 11:46 06/03/18 11:46 06/03/18 11:46 06/03/18 11:46 Exam: General: Patient is alert, no acute distress, oriented x 3 Head: atraumatic, normocephalic, Eye: normal appearance, PERRL, no scleral icterus, no conjunctival injection Neck: normal inspection, trachea midline, full ROM, no carotid bruits Chest: normal inspection, symmetric chest rise Respiratory: Decreased breath sounds at both bases. Minimal wheezing bilaterally Cardiovascular: Regular rate and rhythm. s1 and s2 No clicks, rubs, gallops, or murmurs. No pedal edema Abdomen: Abdomen is soft, nontender. Bowel sounds are present Musculoskeletal: Spontaneously moving all extremities Skin: warm, dry, intact. Neuro: Alert oriented x 3 normal cranial nerves, no focal deficits Psych: Patient's affect is normal - Assessment and Plan (1) GI bleed Current Visit: Yes Status: Acute Assessment and Plan: Improved. Anticoagulation has been stopped. Hemoglobin levels are stable. Continue PPI. (2) Acute blood loss anemia Current Visit: Yes Status: Acute Assessment and Plan: Stable. Hemoglobin 9.2 today. Will continue to monitor. (3) Afib Current Visit: Yes Status: Chronic Assessment and Plan: Rate controlled. Anticoagulation stopped. We will start aspirin 325 mg daily. (4) Chronic respiratory failure Current Visit: Yes Status: Chronic Assessment and Plan: Continue O2 supplementation. (5) COPD (chronic obstructive pulmonary disease) Current Visit: Yes Status: Chronic Assessment and Plan: Not in acute exacerbation. Use bronchodilators as needed (6) DVT prophylaxis Current Visit: Yes Status: Acute Assessment and Plan: SCDs (7) Hyponatremia with decreased serum osmolality Current Visit: Yes Status: Acute Assessment and Plan: Hyponatremia likely due to diuretic use. Sodium 130 today. Will restart Lasix at the left lower dose (8) Tobacco abuse disorder Current Visit: Yes Status: Chronic - Time Spent with Patient Total time spent is greater than 50% in coordination of care (as documented) at patient's floor/unit and/or counseling patient: Plan of Care Discussed with: patient Internal Medicine: Result - Labs CBC & Chem 7: 06/03/18 00:23 06/03/18 00:23 Labs: Short CBC 06/02/18 06/03/18 Range/Units 15:49 00:23 WBC 8.8 (4.3-11.1) K/mcL Hgb 10.3 L 9.2 L (12.9-16.9) g/dL Hct 31.2 L 27.3 L (37.5-50.1) % Plt Count 229 (140-400) K/mcL Neutrophils # 5.0 (1.6-8.9) K/mcL BMP 06/03/18 00:23 Sodium 130 L Potassium 4.2 Chloride 94 L Carbon Dioxide 33 H BUN 7 L Creatinine 0.62 L Glucose 175 H Calcium 8.2 L - ABG Interpretation ABG results: ABG ABG pH 7.37 pH Units (7.32-7.45) 05/31/18 02:57 ABG pCO2 85 mmHg (35-45) H* 05/31/18 02:57 ABG pO2 117 mmHg (85-104) H 05/31/18 02:57 ABG O2 Saturation 98 % (95-98) 05/31/18 02:57 PT/INR, D-dimer PT 14.9 Seconds (9.4-12.1) H 05/31/18 09:14 - VTE Documentation of Mechanical Device: Intermittent pneumatic compression device Consult Discharge Plan - Plan Referrals: Antione Perez MD [Partnered Physician] - (sent web request on 05-31-18 @ 0116) [place],PCP [Primary Care Provider] - 06/07/18 9:30 am (1) GI bleed Qualifiers: GI bleed type/associated pathology: anorectal hemorrhage Qualified Code(s): K62.5 - Hemorrhage of anus and rectum (3) Afib Qualifiers: Atrial fibrillation type: chronic Qualified Code(s): I48.2 - Chronic atrial fibrillation (4) Chronic respiratory failure Qualifiers: Respiratory failure complication: hypoxia and hypercapnia Qualified Code(s): J96.11 - Chronic respiratory failure with hypoxia; J96.12 - Chronic respiratory failure with hypercapnia (5) COPD (chronic obstructive pulmonary disease) Qualifiers: COPD type: unspecified COPD Qualified Code(s): J44.9 - Chronic obstructive pulmonary disease, unspecified
[2018-06-03] MEDS: Acetaminophen 325 MG TABLET PO PRN (14:23)
[2018-06-03] MEDS: Aspirin Enteric Coated 325 MG Tablet PO SCH (17:02)
[2018-06-04] MEDS: Acetaminophen 325 MG TABLET PO PRN (00:33)
[2018-06-04] MEDS: Ipratropium/Albuterol Neb 3 ML IH SCH ×3 (03:57→15:36)
[2018-06-04 04:58] LABS: Basophils % 0.3 %; Eosinophils # 0.2 K/mcL (0.0-0.6); Eosinophils % 2.5 %; Hematocrit 27.2 % (37.5-50.1); Immature Granulocytes % 0.9 % (0-4); Lymphocytes # 2.5 K/mcL (0.6-4.6); Lymphocytes % 26.4 %; Mean Corpuscular HGB Conc 33.1 g/dL (31.6-35.5); Mean Corpuscular Hemoglobin 28.9 pg (28.0-33.3); Mean Corpuscular Volume 87.5 fL (83.0-100.0); Mean Platelet Volume 9.3 fL (9.4-12.4); Monocytes # 1.8 K/mcL (0.0-1.3); Monocytes % 18.9 %; Neutrophils # 4.7 K/mcL (1.6-8.9); Platelet Count 303 K/mcL (140-400); Red Blood Count 3.11 M/mcL (4.19-5.50); Red Cell Distribution Width 15.9 % (11.5-14.5)
[2018-06-04 05:19] LABS: BUN/Creatinine Ratio 12 (6-26); Blood Urea Nitrogen 8 mg/dL (8-23); Calcium 8.5 mg/dL (8.6-10.3); Carbon Dioxide 36 mEq/L (23-29); Chloride 98 mEq/L (98-107); Glucose 115 mg/dL (70-105); Osmolality,Calculated 281 (280-300); Potassium 4.5 mEq/L (3.5-5.1); Sodium 136 mEq/L (136-145); eGFR For Non-African Americans > 60 (> 60)
[2018-06-04 05:31] LABS: Platelet Estimate Normal (Normal)
[2018-06-04] MEDS: Pantoprazole 40 MG VIAL IVP SCH (05:51)
[2018-06-04] MEDS: Insulin LISPRO 300 UNITS/3 ML VIAL SQ SCH ×2 (07:46→14:23)
[2018-06-04] MEDS: Lactobacillus 1 EACH CAP.SPRINK PO SCH (08:19)
[2018-06-04] MEDS: Amoxicillin 500 MG CAPSULE PO SCH (08:19)
[2018-06-04] MEDS: Aspirin Enteric Coated 325 MG Tablet PO SCH (08:20)
[2018-06-04] MEDS: Diltiazem CD (24hr) 240 MG CAPSULE PO SCH (08:20)
[2018-06-04] MEDS: *HR* Digoxin 0.125 MG TABLET PO SCH (08:20)
[2018-06-04] MEDS ORDERED: Furosemide 20 MG TABLET PO SCH (09:00)
[2018-06-04 11:00] VITALS: BP 121/50
--- NOTE | 2018-06-04 13:38 | Physician Discharge Referral ---
Home Health/Hosp Referral Info Transfer to: Home Health - Diagnosis (1) DVT prophylaxis Status: Acute (2) Tobacco abuse disorder Status: Chronic (3) Chronic respiratory failure Status: Chronic (4) GI bleed Status: Acute (5) Afib Status: Chronic (6) Acute blood loss anemia Status: Acute (7) COPD (chronic obstructive pulmonary disease) Status: Chronic (8) Hyponatremia with decreased serum osmolality Status: Acute - Respiratory Orders Smoking Cessation: Smoking cessation has been advised. For more information, call the [employer] Quit Line at 7-186-LKXS-NOW. - Services Needed Following services are medically necessary services: Physical Therapy - Transfer Medications Prescriptions: Amoxicillin [Amoxil] 500 mg PO TID 3 Days #9 capsule Furosemide [Lasix] 20 mg PO DAILY #30 tablet Home Medications: Albuterol Sulfate [Albuterol Inhaler] 2 puff IH Q6HR PRN 11/10/16 [History] Docusate Sodium [Dok] 100 mg PO BID PRN 11/10/16 [History] Isosorbide MONOnitrate (24 HR) [Imdur] 30 mg PO DAILY 11/10/16 [History] Melatonin 6 mg PO HS PRN 11/10/16 [History] Omeprazole [PriLOSEC] 20 mg PO DAILY 11/10/16 [History] Ranitidine HCl [Acid Full Stack Web Developer] 150 mg PO BID 11/10/16 [History] Acetaminophen [Tylenol] 1,000 mg PO BID PRN 01/22/17 [History] Olodaterol HCl [Striverdi Respimat] 2 puff IH DAILY 01/22/17 [History] Aspirin [Lo-Dose Aspirin EC] 81 mg PO DAILY 10/01/17 [History] Carvedilol 3.125 mg PO BID 10/01/17 [History] Diltiazem HCl [Diltiazem 24Hr Cd] 240 mg PO DAILY 10/01/17 [History] Cholecalciferol (D-3) [Vitamin D] 1,000 unit PO DAILY tablet 01/21/18 [Rx] amLODIPine [Norvasc] 5 mg PO DAILY tablet 01/21/18 [Rx] Allopurinol [Zyloprim 100 MG] 100 mg PO DAILY 05/02/18 [History] Digoxin [Lanoxin] 0.125 mg PO DAILY 05/02/18 [History] Multivitamin [One Daily Essential] 1 tab PO DAILY 05/02/18 [History] metFORMIN [Glucophage] 500 mg PO BIDWM 05/02/18 [History] Amoxicillin [Amoxil] 500 mg PO TID 3 Days #9 capsule 06/04/18 [Rx] Furosemide [Lasix] 20 mg PO DAILY #30 tablet 06/04/18 [Rx] Allergies/Adverse Reactions: 3 Allergy/AdvReac Type Severity Reaction Status Date / Time hydrocodone [From Vicodin] Allergy See Verified 01/14/18 11:37 Comments moxifloxacin Allergy See Verified 01/14/18 11:37 Comments Certification: Further, I certify that my clinical findings support that this patient is homebound (i.e. absences from home require considerable and taxing effort and are for medical reasons or [employer] services or infrequently or short duration when for other reasons) because: Homebound Reason: Patient requires assistance of a person or device to safely leave home Attestation: My signature below is to certify that this patient is under my care and that I, or nurse practitioner, or a physician's housekeeper and laundry assistant working with me, has a face-to -face encounter with this patient.
--- NOTE | 2018-06-04 13:38 | Discharge Summary ---
- NOTES TO OUTPATIENT PROVIDER Notes to Outpatient Provider: Patient is to hold Eliquis for 2 weeks. After 2 weeks, patient is then to restart Eliquis and follow up with primary care provider for monitoring of hemoglobin. Date of Encounter: 06/04/18 Time of Encounter: 11:00 - Discharge Diagnosis (1) Tobacco abuse disorder Priority: Secondary Status: Chronic (2) Chronic respiratory failure Priority: Secondary Status: Chronic Qualifiers: Respiratory failure complication: hypoxia and hypercapnia Qualified Code(s) : J96.11 - Chronic respiratory failure with hypoxia; J96.12 - Chronic respiratory failure with hypercapnia (3) GI bleed Priority: Primary Status: Acute Qualifiers: GI bleed type/associated pathology: anorectal hemorrhage Qualified Code(s) : K62.5 - Hemorrhage of anus and rectum (4) Afib Priority: Secondary Status: Chronic Qualifiers: Atrial fibrillation type: chronic Qualified Code(s): I48.2 - Chronic atrial fibrillation (5) Acute blood loss anemia Priority: Primary Status: Acute (6) COPD (chronic obstructive pulmonary disease) Priority: Secondary Status: Chronic Qualifiers: COPD type: unspecified COPD Qualified Code(s): J44.9 - Chronic obstructive pulmonary disease, unspecified (7) Hyponatremia with decreased serum osmolality Priority: Secondary Status: Acute Hospital course: Patient is a 72-year-old male with past medical history significant for cirrhosis, COPD, coronary artery disease, GERD, hepatitis, hyperlipidemia, hypertension, liver disease, myocardial infarction, atrial fibrillation, peripheral artery disease, renal disease and hepatitis C who presents the ER on 05/30/18 due to GI bleed. Patient reported a 2 day history of bloody stools. He has a history of atrial fibrillation and has been on Eliquis for oral anticoagulation. In the ER, patient was given 2 units of packed red blood cells and admitted to the progressive unit for further monitoring. During patients hospital stay GI was consulted with recommendations for colonoscopy which showed blood clots in the colon without any active bleeding nor with any stigmata of recent bleeding. Patient remained hemodynamically stable. Recommendations by GI for patient to hold Eliquis for 2 weeks and then restart. Patient will follow-up with primary care provider or monitoring. - Time Spent with Patient Total time spent providing and/or coordinating discharge services: Less than 30 minutes - Discharge Medications Prescriptions: Amoxicillin [Amoxil] 500 mg PO TID 3 Days #9 capsule Furosemide [Lasix] 20 mg PO DAILY #30 tablet Home Medications: Albuterol Sulfate [Albuterol Inhaler] 2 puff IH Q6HR PRN 11/10/16 [History] Docusate Sodium [Dok] 100 mg PO BID PRN 11/10/16 [History] Isosorbide MONOnitrate (24 HR) [Imdur] 30 mg PO DAILY 11/10/16 [History] Melatonin 6 mg PO HS PRN 11/10/16 [History] Omeprazole [PriLOSEC] 20 mg PO DAILY 11/10/16 [History] Ranitidine HCl [Acid Nozzle Operator] 150 mg PO BID 11/10/16 [History] Acetaminophen [Tylenol] 1,000 mg PO BID PRN 01/22/17 [History] Olodaterol HCl [Striverdi Respimat] 2 puff IH DAILY 01/22/17 [History] Aspirin [Lo-Dose Aspirin EC] 81 mg PO DAILY 10/01/17 [History] Carvedilol 3.125 mg PO BID 10/01/17 [History] Diltiazem HCl [Diltiazem 24Hr Cd] 240 mg PO DAILY 10/01/17 [History] Cholecalciferol (D-3) [Vitamin D] 1,000 unit PO DAILY tablet 01/21/18 [Rx] amLODIPine [Norvasc] 5 mg PO DAILY tablet 01/21/18 [Rx] Allopurinol [Zyloprim 100 MG] 100 mg PO DAILY 05/02/18 [History] Digoxin [Lanoxin] 0.125 mg PO DAILY 05/02/18 [History] Multivitamin [One Daily Essential] 1 tab PO DAILY 05/02/18 [History] metFORMIN [Glucophage] 500 mg PO BIDWM 05/02/18 [History] Amoxicillin [Amoxil] 500 mg PO TID 3 Days #9 capsule 06/04/18 [Rx] Furosemide [Lasix] 20 mg PO DAILY #30 tablet 06/04/18 [Rx] Allergies/Adverse Reactions: 3 Allergy/AdvReac Type Severity Reaction Status Date / Time hydrocodone [From Vicodin] Allergy See Verified 01/14/18 11:37 Comments moxifloxacin Allergy See Verified 01/14/18 11:37 Comments Date of admission: 05/30/18 23:03 Primary care physician: PCP RANDY Consults: 05/30/18 23:07 Consult to Gastroenterology [CONS] Routine Consulting Provider: Samia Quintanilla Reason for Consult: GI Bleed Call Completed: No 06/03/18 12:05 Consult to Physical Therapy [CONS] Stat Comment: Evaluate, develop and implement POC Reason for Consult: weakness, discharge planning. Does patient have active BEDREST order?: No Is patient medically & hemodynamically stable?: Yes Patient assessed for mobility or mobilized this visit?: No - Constitutional Vitals: Temp Pulse Resp BP Pulse Ox 98.0 F 52 18 121/50 100 06/04/18 10:56 06/04/18 10:56 06/04/18 11:25 06/04/18 10:56 06/04/18 11:25 General appearance: Present: cooperative, A&O X 3, pleasant, no acute distress, answers questions appropriately - Respiratory Respiratory exam: Present: CTAB. Absent: accessory muscle use, rales, rhonchi, wheezes - Cardiovascular Cardiovascular exam: Present: RRR, +S1, +S2. Absent: diastolic murmur, gallop, rubs, systolic murmur - Patient Status Disposition: Home Health Service Condition: Fair - Discharge Instructions Follow Up With: Antione Perez MD [Partnered Physician] - (sent web request on 05-31-18 @ [id number]) RANDYPCP [Primary Care Provider] - 06/07/18 9:30 am - VTE Documentation of Mechanical Device: Intermittent pneumatic compression device
[2018-06-05] MEDS ORDERED: amLODIPine 5 MG TABLET PO SCH (09:00)
== END 2018-06-04 15:43 | disposition home health service (06) | DRG 378 ==
LOC: EMEROO 14:34 → 3ANU 14:34 → SUATTDRO 23:03 → 2NNU 05-31 11:16
PROVIDERS: ADMIT Internal Medicine; ATTEND Hospitalist

== ENCOUNTER 2018-06-09 01:12 | Inpatient (IN) ==
[2018-06-09] MEDS ORDERED: methylPREDNISolone 125 MG/2 ML VIAL IVP ONE (01:47)
[2018-06-09 01:53] LABS: Basophils % 0.3 %; Eosinophils # 0.1 K/mcL (0.0-0.6); Eosinophils % 0.7 %; Hematocrit 34.5 % (37.5-50.1); Hemoglobin 10.5 g/dL (12.9-16.9); Immature Granulocytes % 0.9 % (0-4); Lymphocytes % 16.4 %; Mean Corpuscular HGB Conc 30.4 g/dL (31.6-35.5); Mean Corpuscular Hemoglobin 28.8 pg (28.0-33.3); Mean Platelet Volume 8.7 fL (9.4-12.4); Monocytes # 1.6 K/mcL (0.0-1.3); Monocytes % 13.3 %; Neutrophils # 8.1 K/mcL (1.6-8.9); Platelet Count 384 K/mcL (140-400); Red Blood Count 3.64 M/mcL (4.19-5.50); Red Cell Distribution Width 14.2 % (11.5-14.5); Segmented Neutrophils % 68.4 %
[2018-06-09 01:54] LABS: Mean Corpuscular Volume 94.8 fL (83.0-100.0)
[2018-06-09 02:09] LABS: Troponin I < 0.03 ng/mL (< 0.04)
[2018-06-09 02:17] LABS: BUN/Creatinine Ratio 7 (6-26); Blood Urea Nitrogen 4 mg/dL (8-23); Calcium 9.7 mg/dL (8.6-10.3); Carbon Dioxide > 45 mEq/L (23-29); Chloride 80 mEq/L (98-107); Glucose 221 mg/dL (70-105); Osmolality,Calculated 282 (280-300); Potassium 4.7 mEq/L (3.5-5.1); Sodium 134 mEq/L (136-145); eGFR For Non-African Americans > 60 (> 60)
[2018-06-09 03:06] LABS: ABG Base Excess 23 mEq/L (-2 to 3); ABG HCO3 54 mEq/L (21-27); ABG Oxygen Saturation 99 % (95-98); ABG PCO2 114 mmHg (35-45); ABG PH 7.29 pH Units (7.32-7.45); ABG PO2 163 mmHg (85-104); ABG TCO2 58 mEq/L (20-26)
--- NOTE | 2018-06-09 03:18 | Emergency Department Note ---
Disposition Clinical Impression: Acute exacerbation of chronic obstructive airways disease, Elevated lactic acid level, Hypercarbia, Hypoxia Disposition: Admitted As Inpatient Condition: Serious General Adult HPI - General Chief complaint: ED Shortness of Breath/Dyspnea Stated complaint: trouble breathing Time Seen by Provider: 06/09/18 01:39 Source: patient, EMS Limitations: no limitations Nursing Notes Reviewed: Yes Vital Signs Reviewed: Yes - History of Present Illness Pain Scale: 0 - Related Data Home Medications Medication Instructions Recorded Confirmed Albuterol Sulfate [Albuterol 2 puff IH Q6HR PRN 11/10/16 05/30/18 Inhaler] Docusate Sodium [Dok] 100 mg PO BID PRN 11/10/16 05/30/18 Isosorbide MONOnitrate (24 HR) 30 mg PO DAILY 11/10/16 05/30/18 [Imdur] Melatonin 6 mg PO HS PRN 11/10/16 05/30/18 Omeprazole [PriLOSEC] 20 mg PO DAILY 11/10/16 05/30/18 Ranitidine HCl [Acid Spiritual Minister] 150 mg PO BID 11/10/16 05/30/18 Acetaminophen [Tylenol] 1,000 mg PO BID PRN 01/22/17 05/30/18 Olodaterol HCl [Striverdi Respimat] 2 puff IH DAILY 01/22/17 05/30/18 Aspirin [Lo-Dose Aspirin EC] 81 mg PO DAILY 10/01/17 05/30/18 Carvedilol 3.125 mg PO BID 10/01/17 05/30/18 Diltiazem HCl [Diltiazem 24Hr Cd] 240 mg PO DAILY 10/01/17 05/30/18 Allopurinol [Zyloprim 100 MG] 100 mg PO DAILY 05/02/18 05/30/18 Digoxin [Lanoxin] 0.125 mg PO DAILY 05/02/18 05/30/18 Multivitamin [One Daily Essential] 1 tab PO DAILY 05/02/18 05/30/18 metFORMIN [Glucophage] 500 mg PO BIDWM 05/02/18 05/30/18 Previous Rx's Medication Instructions Recorded Cholecalciferol (D-3) [Vitamin D] 1,000 unit PO DAILY tablet 01/21/18 amLODIPine [Norvasc] 5 mg PO DAILY tablet 01/21/18 Amoxicillin [Amoxil] 500 mg PO TID 3 Days #9 capsule 06/04/18 Furosemide [Lasix] 20 mg PO DAILY #30 tablet 06/04/18 Allergies Allergy/AdvReac Type Severity Reaction Status Date / Time hydrocodone [From Vicodin] Allergy See Verified 01/14/18 11:37 Comments moxifloxacin Allergy See Verified 01/14/18 11:37 Comments Past Medical History - Past Medical History Medical history: Reports: arthritis, cirrhosis, COPD, coronary artery disease, GERD, hepatitis, hyperlipidemia, hypertension, liver disease, myocardial infarction, peripheral artery disease, renal disease, other Surgical history: Reports: no surgical history Psychiatric history: Reports: anxiety - Social History Smoking Status: Former smoker Smokeless Tobacco Status: Yes Alcohol use: Reports: none Drug use: Reports: none Physical Exam - General Limitations: no limitations General appearance: alert, in distress Course Vital Signs Temperature 97.6 F 06/09/18 01:15 Pulse Rate 54 06/09/18 01:15 Respiratory Rate 22 06/09/18 01:15 Blood Pressure 147/54 06/09/18 01:15 O2 Sat by Pulse Oximetry 98 06/09/18 01:15 Temperature 97.6 F 06/09/18 01:15 Pulse Rate 54 06/09/18 04:03 Respiratory Rate 21 06/09/18 04:03 Blood Pressure 140/67 06/09/18 04:03 O2 Sat by Pulse Oximetry 98 06/09/18 04:03 Oxygen Delivery Oxygen Delivery Bipap Medical Decision Making - Medical Records Medical records reviewed: Yes I reviewed the patient's medical records. - Lab Data Lab results reviewed: Yes I reviewed the patient's lab results. Result diagrams: 06/09/18 01:28 06/09/18 01:28 Lab Results 06/09/18 06/09/18 06/09/18 Range/Units 01:28 01:28 01:28 WBC 11.9 H (4.3-11.1) K/mcL RBC 3.64 L (4.19-5.50) M/mcL Hgb 10.5 L D (12.9-16.9) g/dL Hct 34.5 L (37.5-50.1) % MCV 94.8 D (83.0-100.0) fL MCH 28.8 (28.0-33.3) pg MCHC 30.4 L (31.6-35.5) g/dL RDW 14.2 (11.5-14.5) % Plt Count 384 (140-400) K/mcL MPV 8.7 L (9.4-12.4) fL Immature Gran % 0.9 (0-4) % Seg Neutrophils % 68.4 % Lymphocytes % 16.4 % Monocytes % 13.3 % Eosinophils % 0.7 % Basophils % 0.3 % Neutrophils # 8.1 (1.6-8.9) K/mcL Lymphocytes # 2.0 (0.6-4.6) K/mcL Monocytes # 1.6 H (0.0-1.3) K/mcL Eosinophils # 0.1 (0.0-0.6) K/mcL Basophils # 0.0 (0.0-0.2) K/mcL Sample Site ABG pH (7.32-7.45) pH Units ABG pCO2 (35-45) mmHg ABG pO2 (85-104) mmHg ABG HCO3 (21-27) mEq/L ABG Total CO2 (20-26) mEq/L ABG O2 Saturation (95-98) % ABG Base Excess (-2 to 3) mEq/L Stefan Test O2 Delivery Device Inspired O2 (1-15=lpm [id number]=%) Sodium 134 L (136-145) mEq/L Potassium 4.7 (3.5-5.1) mEq/L Chloride 80 L (98-107) mEq/L Carbon Dioxide > 45 H* (23-29) mEq/L BUN 4 L (8-23) mg/dL Creatinine 0.61 L (0.70-1.30) mg/dL Est GFR ( Amer) > 60 (> 60) Est GFR (Non-Af Amer) > 60 (> 60) BUN/Creatinine Ratio 7 (6-26) Glucose 221 H (70-105) mg/dL Calculated Osmolality 282 (280-300) Lactic Acid 2.8 H (0.5-2.2) mmol/L Calcium 9.7 (8.6-10.3) mg/dL Troponin I < 0.03 (< 0.04) ng/mL B-Natriuretic Peptide (Less than 100) pg/mL 08/19/18 08/19/18 Range/Units 01:28 01:40 WBC (4.3-11.1) K/mcL RBC (4.19-5.50) M/mcL Hgb (12.9-16.9) g/dL Hct (37.5-50.1) % MCV (83.0-100.0) fL MCH (28.0-33.3) pg MCHC (31.6-35.5) g/dL RDW (11.5-14.5) % Plt Count (140-400) K/mcL MPV (9.4-12.4) fL Immature Gran % (0-4) % Seg Neutrophils % % Lymphocytes % % Monocytes % % Eosinophils % % Basophils % % Neutrophils # (1.6-8.9) K/mcL Lymphocytes # (0.6-4.6) K/mcL Monocytes # (0.0-1.3) K/mcL Eosinophils # (0.0-0.6) K/mcL Basophils # (0.0-0.2) K/mcL Sample Site R Radial ABG pH 7.29 L (7.32-7.45) pH Units ABG pCO2 114 H* (35-45) mmHg ABG pO2 163 H (85-104) mmHg ABG HCO3 54 H (21-27) mEq/L ABG Total CO2 58 H (20-26) mEq/L ABG O2 Saturation 99 H (95-98) % ABG Base Excess 23 H (-2 to 3) mEq/L Stefan Test Positive O2 Delivery Device BiPAP Inspired O2 70.0 (1-15=lpm [id number]=%) Sodium (136-145) mEq/L Potassium (3.5-5.1) mEq/L Chloride (98-107) mEq/L Carbon Dioxide (23-29) mEq/L BUN (8-23) mg/dL Creatinine (0.70-1.30) mg/dL Est GFR ( Amer) (> 60) Est GFR (Non-Af Amer) (> 60) BUN/Creatinine Ratio (6-26) Glucose (70-105) mg/dL Calculated Osmolality (280-300) Lactic Acid (0.5-2.2) mmol/L Calcium (8.6-10.3) mg/dL Troponin I (< 0.04) ng/mL B-Natriuretic Peptide 134 H (Less than 100) pg/mL - Radiology Data Radiology results reviewed: Yes I reviewed the patient's radiology results. Chest X-Ray 06/09/18 01:48 IMPRESSION: No acute disease. D/ / Filipe Perez MD / Filipe Perez MD Interpreting Provider: Filipe Perez MD - EKG Data EKG #1 EKG attestation: Yes I reviewed and interpreted this EKG. EKG results narrative: EKG shows a sinus rhythm and regular rate of 57. No acute ST segment elevation or depression. Critical Care Time Critical Care Time: Yes Total Critical Care Time: 40 Attestation: Critical care performed: Time is exclusive of separately billable procedures. Time includes: direct patient care, patient reassessment, coordination of patient care, interpretation of data (laboratory data, radiology data, and respiratory data), review of patient's medical records, medical consultation and documentation of patient care. Procedures included in critical care time: Procedures excluded from critical care time: Attestation Statement - Attestation Attestation: I, Levi Piedra MD, personally evaluated this patient and discussed their management with the resident physician. I reviewed the resident's note and agree with the documented findings, medical decision making, and plan of care. 72-year-old male with history of COPD presents to the emergency department by ambulance with severe respiratory distress. Patient apparently awoke from sleep with difficulty breathing. EMS reports his initial oxygen saturation was 52% on their arrival. He was placed on CPAP and oxygen sat increased to 90%. He did have altered mental status and decreased responsiveness initially but this improved with the oxygen. On arrival here in the emergency Department patient is alert and answers questions. He was placed on BiPAP and oxygen saturations increased to the upper 90s. He denies any cough or fever or chest pain. Just complains of difficulty breathing. On examination patient is a well-developed elderly male in moderate respiratory distress. He is alert. There is no cyanosis or diaphoresis. Breath sounds are markedly decreased diffusely. I do not hear any wheezes or rales. Heart is regular with a mild bradycardia. Abdomen soft and nontender with present bowel sounds. No pedal edema. EKG showed no acute abnormality. Nothing acute on chest x-ray. Labs reviewed. The hospitalist, Dr. Flaherty, was consulted and accepted admission of the patient.
--- NOTE | 2018-06-09 03:20 | Emergency Department Note ---
Disposition Clinical Impression: Acute exacerbation of chronic obstructive airways disease, Elevated lactic acid level, Hypercarbia, Hypoxia Disposition: Admitted As Inpatient [facility] Provider[facility] - Forms: ED Satisfaction Letter Time of Disposition: 03:37 SOB HPI - General Chief Complaint: ED Shortness of Breath/Dyspnea Stated Complaint: trouble breathing Time Seen by Provider: 06/09/18 01:39 Source: patient, EMS Limitations: no limitations Nursing Notes Reviewed: Yes Vital Signs Reviewed: Yes - History of Present Illness 72yo male presents from home via EMS for evaluation of dyspnea. Onset suddenly tonight; awoke the patient from sleep. Hx COPD requiring 2-4L supplemental oxygen. Per EMS, patient was saturating 55% on his home supplemental oxygen. They placed him on CPAP and his oxygenation improved to 92%. He receives [facility] DuoNeb in route. Patient was discharged from this facility 3 days ago for lower GI bleed. He had been taking aspirin and ibuprofen daily as well as Ellik was for his atrial fibrillation. He received 2 units packed red blood cells PMH: Cirrhosis, COPD, CAD status post SC, GERD, hepatitis see, hyperlipidemia, hypertension, PAD, see kidney ROS: Positive: Sudden onset dyspnea Negative: Patient denies any preceding fever, cough, chest pain, palpitations, abdominal pain. - Related Data Home Medications Medication Instructions Recorded Confirmed Albuterol Sulfate [Albuterol 2 puff IH Q6HR PRN 11/10/16 05/30/18 Inhaler] Docusate Sodium [Dok] 100 mg PO BID PRN 11/10/16 05/30/18 Isosorbide MONOnitrate (24 HR) 30 mg PO DAILY 11/10/16 05/30/18 [Imdur] Melatonin 6 mg PO HS PRN 11/10/16 05/30/18 Omeprazole [PriLOSEC] 20 mg PO DAILY 11/10/16 05/30/18 Ranitidine HCl [Acid Card Seller] 150 mg PO BID 11/10/16 05/30/18 Acetaminophen [Tylenol] 1,000 mg PO BID PRN 01/22/17 05/30/18 Olodaterol HCl [Striverdi Respimat] 2 puff IH DAILY 01/22/17 05/30/18 Aspirin [Lo-Dose Aspirin EC] 81 mg PO DAILY 10/01/17 05/30/18 Carvedilol 3.125 mg PO BID 10/01/17 05/30/18 Diltiazem HCl [Diltiazem 24Hr Cd] 240 mg PO DAILY 10/01/17 05/30/18 Allopurinol [Zyloprim 100 MG] 100 mg PO DAILY 05/02/18 05/30/18 Digoxin [Lanoxin] 0.125 mg PO DAILY 05/02/18 05/30/18 Multivitamin [One Daily Essential] 1 tab PO DAILY 05/02/18 05/30/18 metFORMIN [Glucophage] 500 mg PO BIDWM 05/02/18 05/30/18 Previous Rx's Medication Instructions Recorded Cholecalciferol (D-3) [Vitamin D] 1,000 unit PO DAILY tablet 01/21/18 amLODIPine [Norvasc] 5 mg PO DAILY tablet 01/21/18 Amoxicillin [Amoxil] 500 mg PO TID 3 Days #9 capsule 06/04/18 Furosemide [Lasix] 20 mg PO DAILY #30 tablet 06/04/18 Allergies Allergy/AdvReac Type Severity Reaction Status Date / Time hydrocodone [From Vicodin] Allergy See Verified 01/14/18 11:37 Comments moxifloxacin Allergy See Verified 01/14/18 11:37 Comments All systems ED: reviewed and negative except as stated. Review of Systems: As Per HPI Past Medical History - Past Medical History Medical history: Reports: arthritis, cirrhosis, COPD, coronary artery disease, GERD, hepatitis, hyperlipidemia, hypertension, liver disease, myocardial infarction, peripheral artery disease, renal disease, other Surgical history: Reports: no surgical history Psychiatric history: Reports: anxiety - Social History Smoking Status: Former smoker Smokeless Tobacco Status: Yes Alcohol use: Reports: none Drug use: Reports: none Physical Exam Vital Signs Reviewed General: Patient is alert, oriented, and in acute respiratory distress requiring BiPAP to maintain saturations. Head: atraumatic, normocephalic Eye: normal appearance, no scleral icterus, no conjunctival injection ENT: mucous membranes moist, normal external ear exam Neck: normal inspection, trachea midline, full ROM Chest: normal inspection, symmetric chest rise Respiratory: Poor respiratory effort. Poor air entry to bilateral bases. Diffuse crackles with underlying coarse wheeze. Cardiovascular: Bradycardic rate and regular rhythm. No clicks, rubs, gallops, or murmors. Normal heart sounds. Abdomen: Bowel sounds present normoactive x-4 quadrants. Abdomen is soft, nondistended, and nontender. No guarding or rebound. No organomegaly noted. Musculoskeletal: Spontaneously moving all extremities. Skin: warm, dry, intact. Neuro: Alert and oriented x4. GCS 15. Sensation light touch intact. Psych: Patient's affect is appropriate for situation. - General Limitations: no limitations General appearance: alert, in distress Course Course Narrative: Patient clinically doing well on BiPAP. ABG on intake showed slight respiratory acidosis with marked hypercarbia with CO2 114. Elevation in lactic acid of 2.8 suspect this is secondary to hypoxia while asleep prior to EMS arrival. Chest x-ray is unremarkable. Patient does have anemia with hemoglobin 10.5 however this is better than his baseline and improved from his prior admission. Clinically suspect acute exacerbation of COPD. Patient given slight Medrol, DuoNeb's, continue BiPAP. Discussed the patient with the admitting hospitalist, Dr. Heart, who agrees to accept the patient for continued evaluation and management of acute exacerbation of COPD. Chest X-Ray 06/09/18 01:48 IMPRESSION: No acute disease. D/ / Filipe Perez MD / Filipe Perez MD Interpreting Provider: Filipe Perez MD Vital Signs Temperature 97.6 F 06/09/18 01:15 Pulse Rate 54 06/09/18 01:15 Respiratory Rate 22 06/09/18 01:15 Blood Pressure 147/54 06/09/18 01:15 O2 Sat by Pulse Oximetry 98 06/09/18 01:15 Temperature 97.6 F 06/09/18 01:15 Pulse Rate 48 06/09/18 03:12 Respiratory Rate 21 06/09/18 03:12 Blood Pressure 132/56 06/09/18 03:12 O2 Sat by Pulse Oximetry 98 06/09/18 03:12 Oxygen Delivery Oxygen Delivery Bipap Shortness of Breath/Dyspnea - Lab Data Result diagrams: 06/09/18 01:28 06/09/18 01:28 Lab Results 06/09/18 06/09/18 06/09/18 Range/Units 01:28 01:28 01:28 WBC 11.9 H (4.3-11.1) K/mcL RBC 3.64 L (4.19-5.50) M/mcL Hgb 10.5 L D (12.9-16.9) g/dL Hct 34.5 L (37.5-50.1) % MCV 94.8 D (83.0-100.0) fL MCH 28.8 (28.0-33.3) pg MCHC 30.4 L (31.6-35.5) g/dL RDW 14.2 (11.5-14.5) % Plt Count 384 (140-400) K/mcL MPV 8.7 L (9.4-12.4) fL Immature Gran % 0.9 (0-4) % Seg Neutrophils % 68.4 % Lymphocytes % 16.4 % Monocytes % 13.3 % Eosinophils % 0.7 % Basophils % 0.3 % Neutrophils # 8.1 (1.6-8.9) K/mcL Lymphocytes # 2.0 (0.6-4.6) K/mcL Monocytes # 1.6 H (0.0-1.3) K/mcL Eosinophils # 0.1 (0.0-0.6) K/mcL Basophils # 0.0 (0.0-0.2) K/mcL Sample Site ABG pH (7.32-7.45) pH Units ABG pCO2 (35-45) mmHg ABG pO2 (85-104) mmHg ABG HCO3 (21-27) mEq/L ABG Total CO2 (20-26) mEq/L ABG O2 Saturation (95-98) % ABG Base Excess (-2 to 3) mEq/L Stefan Test O2 Delivery Device Inspired O2 (1-15=lpm [id number]=%) Sodium 134 L (136-145) mEq/L Potassium 4.7 (3.5-5.1) mEq/L Chloride 80 L (98-107) mEq/L Carbon Dioxide > 45 H* (23-29) mEq/L BUN 4 L (8-23) mg/dL Creatinine 0.61 L (0.70-1.30) mg/dL Est GFR ( Amer) > 60 (> 60) Est GFR (Non-Af Amer) > 60 (> 60) BUN/Creatinine Ratio 7 (6-26) Glucose 221 H (70-105) mg/dL Calculated Osmolality 282 (280-300) Lactic Acid 2.8 H (0.5-2.2) mmol/L Calcium 9.7 (8.6-10.3) mg/dL Troponin I < 0.03 (< 0.04) ng/mL B-Natriuretic Peptide (Less than 100) pg/mL 06/09/18 06/09/18 Range/Units 01:28 01:40 WBC (4.3-11.1) K/mcL RBC (4.19-5.50) M/mcL Hgb (12.9-16.9) g/dL Hct (37.5-50.1) % MCV (83.0-100.0) fL MCH (28.0-33.3) pg MCHC (31.6-35.5) g/dL RDW (11.5-14.5) % Plt Count (140-400) K/mcL MPV (9.4-12.4) fL Immature Gran % (0-4) % Seg Neutrophils % % Lymphocytes % % Monocytes % % Eosinophils % % Basophils % % Neutrophils # (1.6-8.9) K/mcL Lymphocytes # (0.6-4.6) K/mcL Monocytes # (0.0-1.3) K/mcL Eosinophils # (0.0-0.6) K/mcL Basophils # (0.0-0.2) K/mcL Sample Site R Radial ABG pH 7.29 L (7.32-7.45) pH Units ABG pCO2 114 H* (35-45) mmHg ABG pO2 163 H (85-104) mmHg ABG HCO3 54 H (21-27) mEq/L ABG Total CO2 58 H (20-26) mEq/L ABG O2 Saturation 99 H (95-98) % ABG Base Excess 23 H (-2 to 3) mEq/L Stefan Test Positive O2 Delivery Device BiPAP Inspired O2 70.0 (1-15=lpm [id number]=%) Sodium (136-145) mEq/L Potassium (3.5-5.1) mEq/L Chloride (98-107) mEq/L Carbon Dioxide (23-29) mEq/L BUN (8-23) mg/dL Creatinine (0.70-1.30) mg/dL Est GFR ( Amer) (> 60) Est GFR (Non-Af Amer) (> 60) BUN/Creatinine Ratio (6-26) Glucose (70-105) mg/dL Calculated Osmolality (280-300) Lactic Acid (0.5-2.2) mmol/L Calcium (8.6-10.3) mg/dL Troponin I (< 0.04) ng/mL B-Natriuretic Peptide 134 H (Less than 100) pg/mL
[2018-06-09 04:02] LABS: ABG Base Excess 27 mEq/L (-2 to 3); ABG HCO3 56 mEq/L (21-27); ABG Oxygen Saturation 96 % (95-98); ABG PCO2 89 mmHg (35-45); ABG PH 7.41 pH Units (7.32-7.45); ABG PO2 92 mmHg (85-104); ABG TCO2 59 mEq/L (20-26); Blood Gas Modality BiLevel
--- NOTE | 2018-06-09 04:12 | Internal Med History&Physical ---
Date of Encounter: 06/09/18 Time of Encounter: 05:30 Internal Medicine - H&P: HPI Chief complaint: Dyspnea Admitted From: Emergency Dept Plans for Post Hospital Care: Transfer [facility] Facility History of present illness: Mr. Guardado is a 72 year old male With history of recent GI bleed, COPD, CAD, hepatitis C with cirrhosis, hypertension, CAD who presented to the ED via EMS for severe dyspnea which started suddenly today. At the time of examination, the patient is disoriented and unable to answer questions. Most of his history is gained from previous documentation by other providers. Apparently the patient was at home and started experiencing sudden dyspnea at which point he called 911. He does wear home oxygen and BiPAP at night typically he wears 2-4 L of oxygen at home. When EMS arrived at his house he apparently was saturating at approximately 55% and was lethargic. He was brought to the ED at which point and ABG showed significant respiratory acidosis with hypercapnia and he was placed on BiPAP which improved his clinical condition. The patient' s mental status apparently cleared up at that time. Significantly, the patient was recently admitted to the hospital for an upper GI bleed on 05/30/18 and renal hospital until 06/04/18. He was discharged home at that time without any complication. Past Med Surg Social Fam HX - Past Medical History Medical history: arthritis, cirrhosis, COPD, coronary artery disease, GERD, hepatitis, hyperlipidemia, hypertension, liver disease, myocardial infarction, peripheral artery disease, renal disease, other Additional medical history: hep c, pulmonary coin lesion, atopic dermatitits, ED , gout, OA, Psychiatric history: anxiety - Past Surgical History Surgical History: no surgical history Additional surgical history: Right Hip 12/2017 - Social History Smoking Status: Former smoker Smokeless Tobacco Status: Yes Alcohol use: none Drug use: none Internal Medicine - H&P: Meds Albuterol Sulfate [Albuterol Inhaler] 2 puff IH Q6HR PRN 11/10/16 [History] Docusate Sodium [Dok] 100 mg PO BID PRN 11/10/16 [History] Isosorbide MONOnitrate (24 HR) [Imdur] 30 mg PO DAILY 11/10/16 [History] Melatonin 6 mg PO HS PRN 11/10/16 [History] Omeprazole [PriLOSEC] 20 mg PO DAILY 11/10/16 [History] Ranitidine HCl [Acid Sap Portal Architect] 150 mg PO BID 11/10/16 [History] Acetaminophen [Tylenol] 1,000 mg PO BID PRN 01/22/17 [History] Olodaterol HCl [Striverdi Respimat] 2 puff IH DAILY 01/22/17 [History] Aspirin [Lo-Dose Aspirin EC] 81 mg PO DAILY 10/01/17 [History] Carvedilol 3.125 mg PO BID 10/01/17 [History] Diltiazem HCl [Diltiazem 24Hr Cd] 240 mg PO DAILY 10/01/17 [History] Cholecalciferol (D-3) [Vitamin D] 1,000 unit PO DAILY tablet 01/21/18 [Rx] amLODIPine [Norvasc] 5 mg PO DAILY tablet 01/21/18 [Rx] Allopurinol [Zyloprim 100 MG] 100 mg PO DAILY 05/02/18 [History] Digoxin [Lanoxin] 0.125 mg PO DAILY 05/02/18 [History] Multivitamin [One Daily Essential] 1 tab PO DAILY 05/02/18 [History] metFORMIN [Glucophage] 500 mg PO BIDWM 05/02/18 [History] Amoxicillin [Amoxil] 500 mg PO TID 3 Days #9 capsule 06/04/18 [Rx] Furosemide [Lasix] 20 mg PO DAILY #30 tablet 06/04/18 [Rx] 3 Allergy/AdvReac Type Severity Reaction Status Date / Time hydrocodone [From Vicodin] Allergy See Verified 01/14/18 11:37 Comments moxifloxacin Allergy See Verified 01/14/18 11:37 Comments ROS unobtainable: due to mental status All Systems PM: A 10-system review of systems was performed and is negative for pertinent findings except as documented above in the HPI. - Constitutional Vitals: Temp Pulse Resp BP Pulse Ox 97.6 F 54 21 140/67 98 06/09/18 01:15 06/09/18 04:03 06/09/18 04:03 06/09/18 04:03 06/09/18 04:03 General appearance: Present: A&O X 1, mild distress Exam: Gen: Vitals noted. Mild distress on BiPAP HEENT: Normocephalic, atraumatic Neck: Supple. No adenopathy. Cardiac: Gem faintly. RRR, no murmur, +S1/S2 Pulmonary: Diminished bilaterally but no rhonchi or crackles Abdomen: soft, nontender, no guarding Back: Nontender throughout. MSK: ROM intact, no joint swelling noted Extremities: no BLE edema, nontender calf, no cyanosis or clubbing Neuro: moves all extremities, no focal deficits. Answers "I do not know"to all questions other than his name and birthday. Internal Med - H&P Results - Labs CBC & Chem 7: 06/09/18 01:28 06/09/18 01:28 - ABG Interpretation ABG results: 06/09/18 03:59 ABG pH 7.41 D ABG pCO2 89 H* D ABG pO2 92 D ABG HCO3 56 H ABG Total CO2 59 H ABG O2 Saturation 96 ABG Base Excess 27 H - Assessment and plan (1) Acute on chronic respiratory failure with hypoxia and hypercapnia Current Visit: Yes Status: Acute Assessment and plan: Acute respiratory failure with hypercapnia and hypoxia Patient is oxygen dependent and BiPAP dependent at home, wears 2-4 L chronically He was found with hypoxia and SPO2 55% at home by EMS I think this is likely secondary to exacerbation of COPD CXR in ED does not demonstrate any discrete consolidation Initial ABG on presentation 7.29/114/163/54/99% on BiPAP with 100% FiO2 7.41/89/92/56/96 on BiPAP with 50% FiO2 Bicarbonate on BMP demonstrates greater than 45, baseline appears to be around 37 Mental status is impaired, apparently initially improved with BiPAP but has started to go back to Plan -Bipap improved ABG initially, jl pCO2 into expected compensation range -Continue BiPAP for now -CT to rule out PE -Solu-medrol IVP 40mg Q6h -Duonebs scheduled and prn -Azithromycin 500mg x 3d -Cardiac and pulse ox monitoring -Consider pulmonology consultation (2) Acute exacerbation of chronic obstructive pulmonary disease Current Visit: Yes Status: Acute Assessment and plan: Acute exacerbation of COPD Patient requiring increased O2 consumption and BiPAP demand, decompensated hypercapnia Plan as above (3) Encephalopathy Current Visit: Yes Status: Suspected Assessment and plan: Acute encephalopathy, most likely secondary to CO2 narcosis however possible hepatic Patient presented with pCO2 of 114, which initially corrected with BiPAP to 89. Baseline ~75 He has a history of hepatic encephalopathy as well Apparently was mentating appropriately on presentation, but is altered now There are no focal abnormalities to suggest intracranial abnormalities Plan -Repeat ABG, possibly adjust BiPAP settings as needed -Check ammonia level -Consider head CT (4) Diabetes Current Visit: Yes Status: Acute Assessment and plan: Poorly controlled DM2 Patient presents with hyperglycemia We will place him on SSI Qualifiers: Diabetes mellitus type: type 2 Diabetes mellitus terminal make up operator insulin use: without terminal make up operator use Diabetes mellitus complication status: with hyperglycemia Qualified Code(s): E11.65 - Type 2 diabetes mellitus with hyperglycemia (5) Hypertension Current Visit: Yes Status: Chronic Assessment and plan: Generally well controlled, however episodic elevations in blood pressure I will continue home meds Add PRN hydralazine Qualifiers: Hypertension type: essential hypertension Qualified Code(s): I10 - Essential (primary) hypertension (6) Hepatitis C Current Visit: No Status: Chronic Qualifiers: Viral hepatitis chronicity: unspecified Hepatic coma status: without hepatic coma Qualified Code(s): B19.20 - Unspecified viral hepatitis C without hepatic coma (7) CAD (coronary artery disease) Current Visit: Yes Status: Acute Assessment and plan: Stable, continue home meds Qualifiers: Coronary Disease-Associated Artery/Lesion type: [place] artery [place] vs. transplanted heart: [place] heart Associated angina: without angina Qualified Code(s): I25.10 - Atherosclerotic heart disease of [place] coronary artery without angina pectoris (8) Afib Current Visit: No Status: Chronic Assessment and plan: Rate controlled Currently off anticoagulation due to recent GI bleed Qualifiers: Atrial fibrillation type: chronic Qualified Code(s): I48.2 - Chronic atrial fibrillation (9) DVT prophylaxis Current Visit: No Status: Acute Assessment and plan: SQ Heparin held due to recent GI bleed SCDs - Time Spent With Patient Total time spent is greater than 50% in coordination of care (as documented) at patient's floor/unit and/or counseling patient:
[2018-06-09] MEDS ORDERED: Naloxone 0.4 MG/ML INJ IVP PRN (06:07)
[2018-06-09] MEDS ORDERED: Melatonin 3 MG TABLET PO PRN (06:08)
[2018-06-09] MEDS ORDERED: Dextrose Gel 15 GM/37.5 ML TUBE PO PRN ×2 (06:42)
[2018-06-09] MEDS ORDERED: D5% in Water 1,000 ML IVC PRN (06:42)
[2018-06-09] MEDS ORDERED: *HR* Dextrose 50 % in Water (Syg) 50 ML SYRINGE IVP PRN (06:42)
[2018-06-09] MEDS ORDERED: Isovue-370 500 ML INFUS..BTL IV ONE (07:01)
[2018-06-09 07:13] LABS: ABG Base Excess 25 mEq/L (-2 to 3); ABG HCO3 53 mEq/L (21-27); ABG Oxygen Saturation 96 % (95-98); ABG PCO2 81 mmHg (35-45); ABG PH 7.43 pH Units (7.32-7.45); ABG PO2 83 mmHg (85-104); ABG TCO2 56 mEq/L (20-26); Blood Gas Modality NIV; Blood Gas PEEP 8 cm H2O; Blood Gas Respiration Rate 14; Blood Gas VT 500 cc
--- NOTE | 2018-06-09 08:19 | Pulmonology Consult Note ---
<Onofre Rendon W - Last Filed: 06/09/18 10:39> Date of Encounter: 06/09/18 Medications and Allergies Albuterol Sulfate [Albuterol Inhaler] 2 puff IH Q6HR PRN 11/10/16 [History] Docusate Sodium [Dok] 100 mg PO BID PRN 11/10/16 [History] Isosorbide MONOnitrate (24 HR) [Imdur] 30 mg PO DAILY 11/10/16 [History] Melatonin 6 mg PO HS PRN 11/10/16 [History] Omeprazole [PriLOSEC] 20 mg PO DAILY 11/10/16 [History] Ranitidine HCl [Acid Condenser Operator] 150 mg PO BID 11/10/16 [History] Acetaminophen [Tylenol] 1,000 mg PO BID PRN 01/22/17 [History] Olodaterol HCl [Striverdi Respimat] 2 puff IH DAILY 01/22/17 [History] Aspirin [Lo-Dose Aspirin EC] 81 mg PO DAILY 10/01/17 [History] Carvedilol 3.125 mg PO BID 10/01/17 [History] Diltiazem HCl [Diltiazem 24Hr Cd] 240 mg PO DAILY 10/01/17 [History] Cholecalciferol (D-3) [Vitamin D] 1,000 unit PO DAILY tablet 01/21/18 [Rx] amLODIPine [Norvasc] 5 mg PO DAILY tablet 01/21/18 [Rx] Allopurinol [Zyloprim 100 MG] 100 mg PO DAILY 05/02/18 [History] Digoxin [Lanoxin] 0.125 mg PO DAILY 05/02/18 [History] Multivitamin [One Daily Essential] 1 tab PO DAILY 05/02/18 [History] metFORMIN [Glucophage] 500 mg PO BIDWM 05/02/18 [History] Amoxicillin [Amoxil] 500 mg PO TID 3 Days #9 capsule 06/04/18 [Rx] Furosemide [Lasix] 20 mg PO DAILY #30 tablet 06/04/18 [Rx] 3 Allergy/AdvReac Type Severity Reaction Status Date / Time hydrocodone [From Vicodin] Allergy See Verified 01/14/18 11:37 Comments moxifloxacin Allergy See Verified 01/14/18 11:37 Comments All Systems: The remainder of the systems were reviewed and are negative Ventilator Settings Ventilator Settings: Ventilator Settings, Last 8 Hours Ventilator Tidal Volume 500 Setting Ventilator Respiratory Rate 14 Setting Actual Respiratory Rate 19 Results - Laboratory Findings CBC and BMP: 06/09/18 01:28 06/09/18 01:28 ABG ABG pH 7.43 pH Units (7.32-7.45) 06/09/18 07:10 ABG pCO2 81 mmHg (35-45) H* 06/09/18 07:10 ABG pO2 83 mmHg (85-104) L 06/09/18 07:10 ABG O2 Saturation 96 % (95-98) 06/09/18 07:10 Abnormal lab findings: Abnormal lab results WBC 11.9 K/mcL (4.3-11.1) H 06/09/18 01:28 RBC 3.64 M/mcL (4.19-5.50) L 06/09/18 01:28 Hgb 10.5 g/dL (12.9-16.9) L D 06/09/18 01:28 Hct 34.5 % (37.5-50.1) L 06/09/18 01:28 MCHC 30.4 g/dL (31.6-35.5) L 06/09/18 01:28 MPV 8.7 fL (9.4-12.4) L 06/09/18 01:28 Monocytes # 1.6 K/mcL (0.0-1.3) H 06/09/18 01:28 ABG pCO2 81 mmHg (35-45) H* 06/09/18 07:10 ABG pO2 83 mmHg (85-104) L 06/09/18 07:10 ABG HCO3 53 mEq/L (21-27) H 06/09/18 07:10 ABG Total CO2 56 mEq/L (20-26) H 06/09/18 07:10 ABG Base Excess 25 mEq/L (-2 to 3) H 06/09/18 07:10 Sodium 134 mEq/L (136-145) L 06/09/18 01:28 Chloride 80 mEq/L (98-107) L 06/09/18 01:28 Carbon Dioxide > 45 mEq/L (23-29) H* 06/09/18 01:28 BUN 4 mg/dL (8-23) L 06/09/18 01:28 Creatinine 0.61 mg/dL (0.70-1.30) L 06/09/18 01:28 Glucose 221 mg/dL (70-105) H 06/09/18 01:28 B-Natriuretic Peptide 134 pg/mL (Less than 100) H 06/09/18 01:28 Consult Discharge Plan - Plan [facility]errals: [facility] Provider[facility] - - Attending Attestation I examined this patient and my medical decision-making was reviewed with the Resident Physician. I agree with the documented findings, disposition and treatment plan as described except to the extent set forth below. We independently had [id number] contact with the patient Patient seen and examined at bedside Labs, radiology, chart personally reviewed. Impression: * Acute on chronic hypoxic hypercapnic respiratory failure: This is likely secondary to COPD exacerbation complicated by presumed infectious process most likely etiology lung although radiographic no clear indication of lobar pneumonia possibility of right lower lobe changes of the lung concerning for infectious process * Possible pneumonia: * COPD with acute exacerbation: * Encephalopathy: Multifactorial including respiratory failure and suspected infection * Elevated BNP: Suspected diastolic dysfunction Recs: -Wean FiO2 to keep saturation greater than 88% and grade with noninvasive ventilation he is currently tolerating AVAPS mode and he has overall improvement in his respiratory acidosis I suspect that this can be continued to the morning with the break of this afternoon; he will need to wear on noninvasive ventilation overnight. -Check blood and sputum culture along with respiratory infection panel urine, urinalysis and urine culture also sent for strep pneumo and Legionella antigen. Agree with azithromycin; pending infectious workup I would broaden antimicrobials to include cephalosporin such as cefepime for the next 24-48 hours -Agree with IV steroids and scheduled bronchodilators can likely transition to oral glucocorticoids in the next 24-48 hours -This is improving head CT without acute process -Recommend echocardiogram for further evaluation would pressure control which is currently elevated as well as diuresis as tolerated for goal negative about 500 mL today Thank you for this consultation pulmonary will continue to follow <Rox Godfrey - Last Filed: 06/09/18 12:44> Date of Encounter: 06/09/18 Time of Encounter: 08:09 Assessment and Plan (1) Acute on chronic respiratory failure with hypoxia and hypercapnia Current Visit: No Status: Acute Likely secondary to COPD exacerbation and pneumonia. Found to have oxygen saturation of 55% at home per EMS. Wears 2-4L chronically with nightly BiPAP. ABG on presentation - 7.29/114/163/54/99% on BiPAP with 100% FiO2 Most recent ABG - 7.43/81/83/53/100% on BiPAP with 40% FiO2 Patient has improved his respiratory status on BiPAP Wean FiO2 to maintain saturation above 88% and grade with noninvasive ventilation Continue with a AVAPS this morning, with a break in the afternoon. Continue noninvasive ventilation overnight (2) COPD exacerbation Current Visit: No Status: Acute Likely secondary to pneumonia, although no clear evidence on chest x-ray. Possibly right lower lobe changes concerning for infectious etiology WBC 11.9 Blood culture, sputum culture, urine antigens, urinalysis, infectious panel, MRSA swab pending Continue azithromycin Pending workup, would recommend broad coverage such as cefepime for next 24-48 hours Continue steroids and scheduled bronchodilators Recommend transitioning to oral steroids in the next 24-48 hours (3) Pneumonia Current Visit: No Status: Acute Possible pneumonia, without radiographic evidence, although possibly right lower lobe changes Blood culture, sputum culture, urine antigens, urinalysis, infectious panel, MRSA swab pending Continue azithromycin Pending workup, would recommend broad coverage such as cefepime for next 24-48 hours Qualifiers: Pneumonia type: due to unspecified organism Laterality: right Lung location: lower lobe of lung Qualified Code(s): J18.1 - Lobar pneumonia, unspecified organism (4) Encephalopathy acute Current Visit: Yes Status: Acute Patient presented with altered mental status, possibly secondary to hypoxia and hypercapnia Head CT without acute process Patient improving, continue to monitor (5) Elevated brain natriuretic peptide (BNP) level Current Visit: Yes Status: Acute Recommend echo for further evaluation Elevated blood pressure, consider blood pressure control as well as diuresis Continue Lasix. Recommend diuresis goal of -500 mL today (6) DVT prophylaxis Current Visit: No Status: Acute SCDs History of Present Illness Consult date: 06/09/18 Requesting physician: Irina So Reason for consult: other (Acute Hypercapnic Respiratory Failure) Chief complaint: Shortness of Breath History of present illness: Stefano Guardado is a 72-year-old male with a history of COPD O2 and BiPAP dependent , recent GI bleed, hepatitis C with cirrhosis, hypertension, CAD, who presented to the ED with acute respiratory distress. Due to altered mental status patient was unable to provide a history. Per EMS, upon arrival, his O2 saturation was 55%. ABG in the ED showed respiratory acidosis with hypercapnia, which improved on BiPAP. Mental status has improved somewhat, but per nursing, patient is not at his baseline. Nursing also stated that patient's son reported that Mr. Guardado had fallen out of bed, which was the main reason 911 was called. Mr. Guardado was recently discharged home on 06/04 after a GI bleed. Past Med Surg Social Fam HX - Past Medical History Medical history: arthritis, cirrhosis, COPD, coronary artery disease, GERD, hepatitis, hyperlipidemia, hypertension, liver disease, myocardial infarction, peripheral artery disease, renal disease, other Additional medical history: hep c, pulmonary coin lesion, atopic dermatitits, ED , gout, OA, Psychiatric history: anxiety - Past Surgical History Surgical History: no surgical history Additional surgical history: Right Hip 12/2017 - Social History Smoking Status: Former smoker Smokeless Tobacco Status: Yes Alcohol use: none Drug use: none All Systems: Patient remains to be somewhat disoriented, and only responds to certain questions. The remainder of the systems were reviewed and are negative - EENT Nose, mouth and throat: no dizziness - Cardiovascular Cardiovascular: no chest pain, no lightheadedness - Respiratory Respiratory: dyspnea - Gastrointestinal Gastrointestinal: no abdominal pain Physical Examination General appearance: no acute distress, alert, other (on BIPAP) Eyes: nonicteric Effort: mildly labored Auscultation: bilateral: diminished breath sounds Cardiovascular: regular rate and rhythm Gastrointestinal: normoactive bowel sounds, soft, non-tender Extremities: no cyanosis, no edema pupils equal and round, other (altered mental status, unable to fully answer questions, only responds yes and no and sometimes not at all) Results - Laboratory Findings CBC and BMP: 06/09/18 01:28 06/09/18 01:28 ABG ABG pH 7.43 pH Units (7.32-7.45) 06/09/18 07:10 ABG pCO2 81 mmHg (35-45) H* 06/09/18 07:10 ABG pO2 83 mmHg (85-104) L 06/09/18 07:10 ABG O2 Saturation 96 % (95-98) 06/09/18 07:10 Abnormal lab findings: Abnormal lab results WBC 11.9 K/mcL (4.3-11.1) H 06/09/18 01:28 RBC 3.64 M/mcL (4.19-5.50) L 06/09/18 01:28 Hgb 10.5 g/dL (12.9-16.9) L D 06/09/18 01:28 Hct 34.5 % (37.5-50.1) L 06/09/18 01:28 MCHC 30.4 g/dL (31.6-35.5) L 06/09/18 01:28 MPV 8.7 fL (9.4-12.4) L 06/09/18 01:28 Monocytes # 1.6 K/mcL (0.0-1.3) H 06/09/18 01:28 ABG pCO2 81 mmHg (35-45) H* 06/09/18 07:10 ABG pO2 83 mmHg (85-104) L 06/09/18 07:10 ABG HCO3 53 mEq/L (21-27) H 06/09/18 07:10 ABG Total CO2 56 mEq/L (20-26) H 06/09/18 07:10 ABG Base Excess 25 mEq/L (-2 to 3) H 06/09/18 07:10 Sodium 134 mEq/L (136-145) L 06/09/18 01:28 Chloride 80 mEq/L (98-107) L 06/09/18 01:28 Carbon Dioxide > 45 mEq/L (23-29) H* 06/09/18 01:28 BUN 4 mg/dL (8-23) L 06/09/18 01:28 Creatinine 0.61 mg/dL (0.70-1.30) L 06/09/18 01:28 Glucose 221 mg/dL (70-105) H 06/09/18 01:28 B-Natriuretic Peptide 134 pg/mL (Less than 100) H 06/09/18 01:28
[2018-06-09] MEDS: Ipratropium/Albuterol Neb 3 ML IH SCH ×3 (09:47→22:36)
[2018-06-09] MEDS: *HR* Digoxin 0.125 MG TABLET PO SCH (12:28)
[2018-06-09] MEDS: Aspirin Enteric Coated 81 MG Tablet PO SCH (12:28)
[2018-06-09] MEDS: Isosorbide MONOnitrate (24 HR) 30 MG TAB.ER.24H PO SCH (12:28)
[2018-06-09] MEDS: Furosemide 20 MG TABLET PO SCH (12:28)
[2018-06-09] MEDS: Diltiazem CD (24hr) 240 MG CAPSULE PO SCH (12:28)
[2018-06-09] MEDS: Insulin LISPRO 300 UNITS/3 ML VIAL SQ SCH (12:29)
[2018-06-09] MEDS: amLODIPine 5 MG TABLET PO SCH (12:29)
[2018-06-09] MEDS ORDERED: Cefepime HCl 2,000 MG in 0.9 % Sodium Chloride Mini Bag 100 ML IVPB SCH (13:00)
[2018-06-09] MEDS: Azithromycin 500 MG in D5% in Water 250 ML IVPB SCH (13:21)
[2018-06-09] MEDS: MethylPREDNISolone 40 MG/ML VIAL IVP SCH ×2 (13:21→19:54)
[2018-06-09 14:10] LABS: Adenovirus Not Detected (Not Detect); Bordetella Pertussis Not Detected (Not Detect); Chlamydophila pneumoniae Not Detected (Not Detect); Coronavirus 229E Not Detected (Not Detect); Coronavirus HKU1 Not Detected (Not Detect); Coronavirus NL63 Not Detected (Not Detect); Coronavirus OC43 Not Detected (Not Detect); Human Metapneumovirus Not Detected (Not Detect); Human Rhinovirus/Enterovirus Not Detected (Not Detect); Influenza A Subtype 2009 H1 Not Detected (Not Detect); Influenza A Untypeable Not Detected (Not Detect); Influenza B Not Detected (Not Detect); Mycoplasma pneumoniae Not Detected (Not Detect); Parainfluenza Virus 1 Not Detected (Not Detect); Parainfluenza Virus 2 Not Detected (Not Detect); Parainfluenza Virus 3 Not Detected (Not Detect); Parainfluenza Virus 4 Not Detected (Not Detect); Respiratory Syncytial Virus Not Detected (Not Detect)
--- NOTE | 2018-06-09 18:23 | Event Note ---
Date of Encounter: 06/09/18 Time of Encounter: 11:00 Patient seen by a nocturnalist earlier this morning and also by myself Will continue BiPAP as needed in addition to IV Solu-Medrol, duo nebs and azithromycin for COPD exacerbation. Pulmonology consulted and appreciate recommendations.
[2018-06-10] MEDS: *HR* Heparin 5,000 UNIT/ML VIAL SQ SCH ×2 (03:45→04:19)
[2018-06-10] MEDS: Insulin LISPRO 300 UNITS/3 ML VIAL SQ SCH ×3 (03:48→04:24)
[2018-06-10] MEDS: MethylPREDNISolone 40 MG/ML VIAL IVP SCH ×3 (03:53→11:30)
[2018-06-10] MEDS: Ipratropium/Albuterol Neb 3 ML IH SCH ×4 (04:16→22:29)
[2018-06-10 05:39] LABS: Basophils % 0.1 %; Hematocrit 31.4 % (37.5-50.1); Hemoglobin 9.9 g/dL (12.9-16.9); Immature Granulocytes % 0.6 % (0-4); Lymphocytes # 1.5 K/mcL (0.6-4.6); Lymphocytes % 8.1 %; Mean Corpuscular HGB Conc 31.5 g/dL (31.6-35.5); Mean Corpuscular Hemoglobin 28.3 pg (28.0-33.3); Mean Corpuscular Volume 89.7 fL (83.0-100.0); Mean Platelet Volume 9.1 fL (9.4-12.4); Monocytes # 1.5 K/mcL (0.0-1.3); Monocytes % 7.9 %; Platelet Count 396 K/mcL (140-400); Red Cell Distribution Width 14.8 % (11.5-14.5); Segmented Neutrophils % 83.3 %
[2018-06-10 05:41] LABS: Neutrophils # 15.2 K/mcL (1.6-8.9)
[2018-06-10 05:59] LABS: BUN/Creatinine Ratio 21 (6-26); Blood Urea Nitrogen 12 mg/dL (8-23); Calcium 9.5 mg/dL (8.6-10.3); Carbon Dioxide > 45 mEq/L (23-29); Chloride 85 mEq/L (98-107); Glucose 149 mg/dL (70-105); Osmolality,Calculated 283 (280-300); Potassium 4.4 mEq/L (3.5-5.1); Sodium 135 mEq/L (136-145); eGFR For Non-African Americans > 60 (> 60)
[2018-06-10] MEDS: Furosemide 20 MG TABLET PO SCH (07:46)
[2018-06-10] MEDS: Isosorbide MONOnitrate (24 HR) 30 MG TAB.ER.24H PO SCH (07:46)
[2018-06-10] MEDS: *HR* Digoxin 0.125 MG TABLET PO SCH (07:46)
[2018-06-10] MEDS: Diltiazem CD (24hr) 240 MG CAPSULE PO SCH (07:46)
[2018-06-10] MEDS: Azithromycin 500 MG in D5% in Water 250 ML IVPB SCH (07:46)
[2018-06-10] MEDS: amLODIPine 5 MG TABLET PO SCH (07:46)
[2018-06-10] MEDS: Aspirin Enteric Coated 81 MG Tablet PO SCH (07:46)
[2018-06-10 10:25] LABS: ABG Base Excess 20 mEq/L (-2 to 3); ABG HCO3 47 mEq/L (21-27); ABG Oxygen Saturation 94 % (95-98); ABG PCO2 61 mmHg (35-45); ABG PH 7.49 pH Units (7.32-7.45); ABG PO2 68 mmHg (85-104); ABG TCO2 48 mEq/L (20-26)
--- NOTE | 2018-06-10 11:46 | Pulmonology Progress Note ---
<NickGilmer krishnamurthy S - Last Filed: 06/10/18 14:22> Date of Encounter: 06/10/18 Objective PUL Vital signs: Last Vital Signs Temp 97.9 F 06/10/18 10:51 Pulse 75 06/10/18 10:51 Resp 17 06/10/18 10:51 BP 108/57 06/10/18 10:51 Pulse Ox 100 06/10/18 10:51 Results - Laboratory Findings CBC and BMP: 06/10/18 05:11 06/10/18 05:11 ABG ABG pH 7.49 pH Units (7.32-7.45) H 06/10/18 10:21 ABG pCO2 61 mmHg (35-45) H 06/10/18 10:21 ABG pO2 68 mmHg (85-104) L 06/10/18 10:21 ABG O2 Saturation 94 % (95-98) L 06/10/18 10:21 Abnormal lab findings: Abnormal lab results WBC 18.3 K/mcL (4.3-11.1) H D 06/10/18 05:11 RBC 3.50 M/mcL (4.19-5.50) L 06/10/18 05:11 Hgb 9.9 g/dL (12.9-16.9) L 06/10/18 05:11 Hct 31.4 % (37.5-50.1) L 06/10/18 05:11 MCHC 31.5 g/dL (31.6-35.5) L 06/10/18 05:11 RDW 14.8 % (11.5-14.5) H 06/10/18 05:11 MPV 9.1 fL (9.4-12.4) L 06/10/18 05:11 Neutrophils # 15.2 K/mcL (1.6-8.9) H 06/10/18 05:11 Monocytes # 1.5 K/mcL (0.0-1.3) H 06/10/18 05:11 ABG pH 7.49 pH Units (7.32-7.45) H 06/10/18 10:21 ABG pCO2 61 mmHg (35-45) H 06/10/18 10:21 ABG pO2 68 mmHg (85-104) L 06/10/18 10:21 ABG HCO3 47 mEq/L (21-27) H 06/10/18 10:21 ABG Total CO2 48 mEq/L (20-26) H 06/10/18 10:21 ABG O2 Saturation 94 % (95-98) L 06/10/18 10:21 ABG Base Excess 20 mEq/L (-2 to 3) H 06/10/18 10:21 Sodium 135 mEq/L (136-145) L 06/10/18 05:11 Chloride 85 mEq/L (98-107) L 06/10/18 05:11 Carbon Dioxide > 45 mEq/L (23-29) H* 06/10/18 05:11 Creatinine 0.57 mg/dL (0.70-1.30) L 06/10/18 05:11 Glucose 149 mg/dL (70-105) H 06/10/18 05:11 POC Glucose 144 mg/dL (70-99) H 06/10/18 04:44 B-Natriuretic Peptide 134 pg/mL (Less than 100) H 06/09/18 01:28 - Microbiology Findings Microbiology Findings: Microbiology, Last 48 Hours 06/09/18 13:13 Blood Culture - Preliminary Peripheral Venipuncture Culture is incubating and being continuously monitored for growth. Final report to follow. 06/09/18 13:18 Blood Culture - Preliminary Peripheral Venipuncture Culture is incubating and being continuously monitored for growth. Final report to follow. - Clinical Findings Intake & Output: Intake & Output 06/09/18 06/10/18 06/10/18 23:59 07:59 15:59 Intake Total 240 / 240 Output Total 400 / 400 Balance -160 / -160 Weight 64.7 kg Consult Discharge Plan - Plan Referrals: Onofre Rendon MD [Partnered Physician] - (Office is to call me back with follow up appointment) [facility] Provider[facility] - 06/19/18 10:30 am - Attending Attestation I saw and evaluated this patient and my medical decision-making was reviewed with the Resident Physician. I agree with the documented findings, disposition and treatment plan as described except to the extent set forth below. We independently had [id number] contact with the patient Patient seen and examined at bedside Labs, radiology, chart personally reviewed. 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 And patient should be on prolonged chronic prednisone taper over 21 days and to finish 5 days of azithromycin. And also on discharge after he finishes five -day course the on every Sunday, Sunday, Sunday azithromycin and see any interaction with his current medication skin significant cough and significant QT prolongation. If he is coming with recurrent COPD exacerbation he must be on Daliresp as an outpatient . Might need chronic prednisone therapy in the future. BiPAP if required patient might qualify for home BiPAP but patient is not willing to proceed with BiPAP therapy. Will need to motivated family to bring him for outpatient pulmonology visit needs to follow-up with outpatient pulmonology in 6 weeks. <Rox Godfrey - Last Filed: 06/10/18 18:05> Date of Encounter: 06/10/18 Time of Encounter: 11:17 Assessment and Plan (1) Acute on chronic respiratory failure with hypoxia and hypercapnia Current Visit: No Status: Acute Likely secondary to COPD exacerbation and pneumonia. Found to have oxygen saturation of 55% at home per EMS. Wears 2-4L chronically with nightly BiPAP. ABG on presentation - 7.29/114/163/54/99% on BiPAP with 100% FiO2 Most recent ABG - 7.49/61/68/47/96% on 3L NC Patient has improved his respiratory status on BiPAP Wean FiO2 to maintain saturation above 88% and grade with noninvasive ventilation Continue with a AVAPS this morning, with a break in the afternoon. Continue noninvasive ventilation overnight (2) COPD exacerbation Current Visit: No Status: Acute Likely secondary to pneumonia, although no clear evidence on chest x-ray. Possibly right lower lobe changes concerning for infectious etiology Patient refusing BiPAP during admission and at home WBC 11.9 --> 18.3 Respiratory panel negative Blood culture, sputum culture, urine antigens, urinalysis, MRSA swab pending Continue 5 day course of azithromycin Pending workup, would recommend broad coverage such as cefepime for next 24-48 hours Continue steroids and scheduled bronchodilators Recommend transitioning to oral steroids in the next 24-48 hours with 21 day taper Recommend Symbicort and Spiriva on discharge Recommend MWF azithromycin after completion of 5 day course on discharge Outpatient pulmonary follow-up in 6 weeks (3) Pneumonia Current Visit: No Status: Acute Possible pneumonia, without radiographic evidence, although possibly right lower lobe changes Respiratory panel negative Blood culture, sputum culture, urine antigens, urinalysis, MRSA swab pending Continue azithromycin for 5 days course Pending workup, would recommend broad coverage such as cefepime for next 24-48 hours Recommend Azithromycin MWF once patient completes 5 day course Recommend pulmonary follow-up in 6 weeks Qualifiers: Pneumonia type: due to unspecified organism Laterality: right Lung location: lower lobe of lung Qualified Code(s): J18.1 - Lobar pneumonia, unspecified organism (4) Encephalopathy acute Current Visit: Yes Status: Acute Patient presented with altered mental status, possibly secondary to hypoxia and hypercapnia Head CT without acute process Patient improving, continue to monitor (5) Elevated brain natriuretic peptide (BNP) level Current Visit: Yes Status: Acute Recommend echo for further evaluation Elevated blood pressure, consider blood pressure control as well as diuresis Continue Lasix. (6) DVT prophylaxis Current Visit: No Status: Acute SCDs Subjective Principal diagnosis: Respiratory Failure with Hypoxia and Hypercapnia Interval history: Mr. Guardado is alert and oriented 1 today, baseline undetermined. He states that he does not use a BiPAP at home and does not have any interest in using one. He uses 3 L of supplemental oxygen at home. He admits to occasional shortness of breath. He denies having ever been hospitalized for COPD exacerbation in the past. He states that his reason for coming into the hospital was for abdominal pain not his breathing. Patient appears to be a poor historian, and may not be at his baseline mentation. Objective PUL Vital signs: Last Vital Signs Temp 97.9 F 06/10/18 10:51 Pulse 75 06/10/18 10:51 Resp 17 06/10/18 10:51 BP 108/57 06/10/18 10:51 Pulse Ox 100 06/10/18 10:51 General appearance: no acute distress, alert, other (Patient was A&O x1) Eyes: nonicteric Auscultation: bilateral: wheezes Cardiovascular: regular rate and rhythm Extremities: no cyanosis, no edema pupils equal and round Results - Laboratory Findings CBC and BMP: 06/10/18 05:11 06/10/18 05:11 ABG ABG pH 7.49 pH Units (7.32-7.45) H 06/10/18 10:21 ABG pCO2 61 mmHg (35-45) H 06/10/18 10:21 ABG pO2 68 mmHg (85-104) L 06/10/18 10:21 ABG O2 Saturation 94 % (95-98) L 06/10/18 10:21 Abnormal lab findings: Abnormal lab results WBC 18.3 K/mcL (4.3-11.1) H D 06/10/18 05:11 RBC 3.50 M/mcL (4.19-5.50) L 06/10/18 05:11 Hgb 9.9 g/dL (12.9-16.9) L 06/10/18 05:11 Hct 31.4 % (37.5-50.1) L 06/10/18 05:11 MCHC 31.5 g/dL (31.6-35.5) L 06/10/18 05:11 RDW 14.8 % (11.5-14.5) H 06/10/18 05:11 MPV 9.1 fL (9.4-12.4) L 06/10/18 05:11 Neutrophils # 15.2 K/mcL (1.6-8.9) H 06/10/18 05:11 Monocytes # 1.5 K/mcL (0.0-1.3) H 06/10/18 05:11 ABG pH 7.49 pH Units (7.32-7.45) H 06/10/18 10:21 ABG pCO2 61 mmHg (35-45) H 06/10/18 10:21 ABG pO2 68 mmHg (85-104) L 06/10/18 10:21 ABG HCO3 47 mEq/L (21-27) H 06/10/18 10:21 ABG Total CO2 48 mEq/L (20-26) H 06/10/18 10:21 ABG O2 Saturation 94 % (95-98) L 06/10/18 10:21 ABG Base Excess 20 mEq/L (-2 to 3) H 06/10/18 10:21 Sodium 135 mEq/L (136-145) L 06/10/18 05:11 Chloride 85 mEq/L (98-107) L 06/10/18 05:11 Carbon Dioxide > 45 mEq/L (23-29) H* 06/10/18 05:11 Creatinine 0.57 mg/dL (0.70-1.30) L 06/10/18 05:11 Glucose 149 mg/dL (70-105) H 06/10/18 05:11 POC Glucose 144 mg/dL (70-99) H 06/10/18 04:44 B-Natriuretic Peptide 134 pg/mL (Less than 100) H 06/09/18 01:28 - Microbiology Findings Microbiology Findings: Microbiology, Last 48 Hours 06/09/18 13:13 Blood Culture - Preliminary Peripheral Venipuncture Culture is incubating and being continuously monitored for growth. Final report to follow. 06/09/18 13:18 Blood Culture - Preliminary Peripheral Venipuncture Culture is incubating and being continuously monitored for growth. Final report to follow. - Clinical Findings Intake & Output: Intake & Output 06/09/18 06/10/18 06/10/18 23:59 07:59 15:59 Output Total 400 / 400 Balance -400 / -400 Weight 64.7 kg
--- NOTE | 2018-06-10 15:24 | Electrocardiograph Report ---
[place] [id number] Test Date: 2018-06-09 Pat Name: Stefano Guardado Department: Room: 2N10 Gender: M [employer]: : 1945 Requested By: Artis Rivera Order Number: [id number] Reading MD: Stefano Hines Measurements Intervals [place] Rate: 57 P: 85 DE: 156 QRS: 79 QRSD: 105 T: 70 QT: 433 QTc: 422 Interpretive Statements Sinus rhythm Electronically Signed On 06-10-2018 15:22:51 EDT by Stefano Hines
[2018-06-10] MEDS: Apixaban 5 MG TABLET PO SCH ×2 (15:27→21:08)
[2018-06-10] MEDS: predniSONE 20 MG TABLET PO SCH (15:27)
--- NOTE | 2018-06-10 19:21 | Internal Med Progress Note ---
Hospitalist Progress Note - Encounter Date of Encounter: 06/10/18 Time of Encounter: 11:00 - Subjective Interval History: Patient's altered mental status is getting better returning close to baseline. Still requires supplemental oxygenation for shortness of breath but ABGs have improved - Exam Vitals: Temp Pulse Resp BP Pulse Ox 98.8 F 76 18 138/54 99 06/10/18 15:52 06/10/18 15:52 06/10/18 16:29 06/10/18 15:52 06/10/18 16:29 Exam: Gen.: Nonacute distress, alert and oriented 3 ENT: Mucosal membranes moist Respiratory: Lungs are clear to auscultation bilaterally without any wheezing rhonchi or rales Cardiovascular: Normal S1 and S2 regular rate rhythm no murmurs rubs or gallops Abdomen: Soft, nontender and nondistended with positive bowel sounds Extremities: No lower extremity edema Skin: Normal color - Assessment and Plan (1) Acute exacerbation of chronic obstructive airways disease Current Visit: Yes Status: Acute Assessment and Plan: Patient requiring less O2 supplementation Will transition today from IV steroids to oral prednisone Will continue azithromycin Pulmonology following and appreciate any further recommendations (2) Acute on chronic respiratory failure with hypoxia and hypercapnia Current Visit: Yes Status: Acute Assessment and Plan: Secondary to COPD exacerbation and management as above (3) CAD (coronary artery disease) Current Visit: Yes Status: Acute Assessment and Plan: Continue home medications (4) Diabetes Current Visit: Yes Status: Acute Assessment and Plan: Continue home medications (5) Encephalopathy acute Current Visit: Yes Status: Acute Assessment and Plan: Resolved; suspect secondary to acute on chronic hypoxic/hypercapnic respiratory failure above (6) Hypertension Current Visit: Yes Status: Chronic Assessment and Plan: Continue home medications (7) DVT prophylaxis Current Visit: No Status: Acute Assessment and Plan: Continue home dose of Eliquis - Time Spent with Patient Total time spent is greater than 50% in coordination of care (as documented) at patient's floor/unit and/or counseling patient: Internal Medicine: Result - Labs CBC & Chem 7: 06/10/18 05:11 06/10/18 05:11 Labs: Short CBC 06/10/18 Range/Units 05:11 WBC 18.3 H D (4.3-11.1) K/mcL Hgb 9.9 L (12.9-16.9) g/dL Hct 31.4 L (37.5-50.1) % Plt Count 396 (140-400) K/mcL Neutrophils # 15.2 H (1.6-8.9) K/mcL BMP 06/10/18 05:11 Sodium 135 L Potassium 4.4 Chloride 85 L Carbon Dioxide > 45 H* BUN 12 Creatinine 0.57 L Glucose 149 H Calcium 9.5 - ABG Interpretation ABG results: ABG ABG pH 7.49 pH Units (7.32-7.45) H 06/10/18 10:21 ABG pCO2 61 mmHg (35-45) H 06/10/18 10:21 ABG pO2 68 mmHg (85-104) L 06/10/18 10:21 ABG O2 Saturation 94 % (95-98) L 06/10/18 10:21 Consult Discharge Plan - Plan Referrals: Onofre Rendon MD [Partnered Physician] - (Office is to call me back with follow up appointment) [facility] Care Provider[facility] - 06/19/18 10:30 am (3) CAD (coronary artery disease) Qualifiers: Coronary Disease-Associated Artery/Lesion type: [place] artery [place] vs. transplanted heart: [place] heart Associated angina: without angina Qualified Code(s): I25.10 - Atherosclerotic heart disease of [place] coronary artery without angina pectoris (4) Diabetes Qualifiers: Diabetes mellitus type: type 2 Diabetes mellitus retirement insulin use: without termite treater helper use Diabetes mellitus complication status: with hyperglycemia Qualified Code(s): E11.65 - Type 2 diabetes mellitus with hyperglycemia (6) Hypertension Qualifiers: Hypertension type: essential hypertension Qualified Code(s): I10 - Essential (primary) hypertension
[2018-06-10 21:26] LABS: Bilirubin,Urine Negative (Negative); Blood,Urine Negative (Negative); Clarity,Urine Clear (Clear); Color,Urine Yellow (Yellow); Glucose,Urine (UA) Normal (Normal); Ketones,Urine Negative (Negative); Leukocyte Esterase,Urine Negative (Negative); Nitrite,Urine Negative (Negative); Protein,Urine Negative (Neg-Trace); Urobilinogen,Urine Normal (Normal)
[2018-06-11] MEDS: Ipratropium/Albuterol Neb 3 ML IH SCH ×3 (03:30→16:11)
[2018-06-11 05:39] LABS: Basophils % 0.1 %; Hematocrit 26.9 % (37.5-50.1); Hemoglobin 8.8 g/dL (12.9-16.9); Immature Granulocytes % 0.6 % (0-4); Lymphocytes # 1.4 K/mcL (0.6-4.6); Lymphocytes % 6.9 %; Mean Corpuscular HGB Conc 32.7 g/dL (31.6-35.5); Mean Corpuscular Hemoglobin 28.1 pg (28.0-33.3); Mean Corpuscular Volume 85.9 fL (83.0-100.0); Mean Platelet Volume 9.4 fL (9.4-12.4); Monocytes # 1.8 K/mcL (0.0-1.3); Neutrophils # 16.4 K/mcL (1.6-8.9); Platelet Count 371 K/mcL (140-400); Red Blood Count 3.13 M/mcL (4.19-5.50); Red Cell Distribution Width 14.7 % (11.5-14.5); Segmented Neutrophils % 83.4 %
[2018-06-11 06:08] LABS: BUN/Creatinine Ratio 29 (6-26); Blood Urea Nitrogen 15 mg/dL (8-23); Calcium 8.8 mg/dL (8.6-10.3); Carbon Dioxide 39 mEq/L (23-29); Chloride 82 mEq/L (98-107); Glucose 141 mg/dL (70-105); Osmolality,Calculated 269 (280-300); Potassium 3.8 mEq/L (3.5-5.1); Sodium 128 mEq/L (136-145); eGFR For Non-African Americans > 60 (> 60)
[2018-06-11] MEDS: Isosorbide MONOnitrate (24 HR) 30 MG TAB.ER.24H PO SCH (08:03)
[2018-06-11] MEDS: Apixaban 5 MG TABLET PO SCH (08:03)
[2018-06-11] MEDS: Aspirin Enteric Coated 81 MG Tablet PO SCH (08:03)
[2018-06-11] MEDS: predniSONE 20 MG TABLET PO SCH (08:03)
[2018-06-11] MEDS: Furosemide 20 MG TABLET PO SCH (08:03)
[2018-06-11] MEDS: *HR* Digoxin 0.125 MG TABLET PO SCH (08:04)
[2018-06-11] MEDS: Azithromycin 500 MG in D5% in Water 250 ML IVPB SCH (08:05)
[2018-06-11] MEDS: amLODIPine 5 MG TABLET PO SCH (08:05)
[2018-06-11] MEDS: Diltiazem CD (24hr) 240 MG CAPSULE PO SCH (08:06)
--- NOTE | 2018-06-11 14:10 | Discharge Summary ---
- NOTES TO OUTPATIENT PROVIDER Notes to Outpatient Provider: Patient is admitted for COPD exacerbation. Discharged home on Symbicort, Spiriva, and 21 day steroid taper as per pulmonary recommendation. We will also place the patient on azithromycin Sunday after a five-day course. Follow-up with pulmonary in 6 weeks. Orders not resulted at time of discharge: Pending orders 06/09/18 10:45 Culture,Sputum with Gram Stain [RM] Routine MRSA Surveillance Screen [MOLMIC] Routine 06/09/18 13:13 Culture,Blood [BC] Routine Date of Encounter: 06/11/18 Time of Encounter: 11:45 - Discharge Diagnosis (1) Acute on chronic respiratory failure with hypoxia and hypercapnia Priority: Primary Status: Acute (2) DVT prophylaxis Priority: Secondary Status: Acute (3) Hypertension Priority: Secondary Status: Chronic Qualifiers: Hypertension type: essential hypertension Qualified Code(s): I10 - Essential (primary) hypertension (4) Diabetes Priority: Secondary Status: Acute Qualifiers: Diabetes mellitus type: type 2 Diabetes mellitus termite treater helper insulin use: without termite treater helper use Diabetes mellitus complication status: with hyperglycemia Qualified Code(s): E11.65 - Type 2 diabetes mellitus with hyperglycemia (5) Acute exacerbation of chronic obstructive airways disease Priority: Secondary Status: Acute (6) CAD (coronary artery disease) Priority: Secondary Status: Acute Qualifiers: Coronary Disease-Associated Artery/Lesion type: [place] artery [place] vs. transplanted heart: [place] heart Associated angina: without angina Qualified Code(s): I25.10 - Atherosclerotic heart disease of [place] coronary artery without angina pectoris (7) Encephalopathy acute Priority: Secondary Status: Acute Hospital course: Mr. Guardado is a 72 year old male with past medical COPD was admitted for acute on chronic hypercarbic respiratory failure secondary to COPD exacerbation. Of note, he was admitted frequently with the same complaint for the last few months. Started on azithromycin, steroids, and bronchodilators with symptomatic improvement. Pulmonary was consulted in view of the frequent exacerbation and was recommended to adjust his inhalers to Symbicort and Spiriva. He is also started on prolonged chronic steroid taper over 21 days and was advised to finish 5 days of azithromycin followed by the Sunday regime. He was also given a script for nebulizer and duoneb which will need ME's authorization. He was also considered for nocturnal BiPaP but patient is not willing to try yet and would follow up with pulm in 6 weeks. Discharge discussed with: patient, case management - Time Spent with Patient Total time spent providing and/or coordinating discharge services: Greater than 30 minutes - Discharge Medications Prescriptions: Ipratropium/Albuterol Neb [Duoneb] 3 ml IH Q4HR #30 vial.neb Azithromycin [Zithromax] 500 mg PO DAILY #60 tablet Budesonide/Formoterol 160/4.5 [Symbicort 160/4.5] 1 puff IH BIDR #1 hfa.aer.ad predniSONE [PredniSONE] 40 mg PO DAILY #25 tablet Tiotropium [Spiriva] 18 mcg IH 0700 #30 capsule Home Medications: Albuterol Sulfate [Albuterol Inhaler] 2 puff IH Q6HR PRN 11/10/16 [History] Docusate Sodium [Dok] 100 mg PO BID PRN 11/10/16 [History] Isosorbide MONOnitrate (24 HR) [Imdur] 30 mg PO DAILY 11/10/16 [History] Melatonin 6 mg PO HS PRN 11/10/16 [History] Omeprazole [PriLOSEC] 20 mg PO DAILY 11/10/16 [History] Ranitidine HCl [Acid Wind Turbine Mechanical Engineer] 150 mg PO BID 11/10/16 [History] Aspirin [Lo-Dose Aspirin EC] 81 mg PO DAILY 10/01/17 [History] Carvedilol 3.125 mg PO BID 10/01/17 [History] Diltiazem HCl [Diltiazem 24Hr Cd] 240 mg PO DAILY 10/01/17 [History] Cholecalciferol (D-3) [Vitamin D] 1,000 unit PO DAILY tablet 01/21/18 [Rx] amLODIPine [Norvasc] 5 mg PO DAILY tablet 01/21/18 [Rx] Allopurinol [Zyloprim 100 MG] 100 mg PO DAILY 05/02/18 [History] Digoxin [Lanoxin] 0.125 mg PO DAILY 05/02/18 [History] metFORMIN [Glucophage] 500 mg PO BIDWM 05/02/18 [History] Furosemide [Lasix] 20 mg PO DAILY #30 tablet 06/04/18 [Rx] Apixaban [Eliquis] 5 mg PO BID 06/09/18 [History] Ferrous Sulfate [Iron] 325 mg PO BID 06/09/18 [History] Naproxen [Naprosyn] 500 mg PO BID PRN 06/09/18 [History] Azithromycin [Zithromax] 500 mg PO DAILY #60 tablet 06/11/18 [Rx] Budesonide/Formoterol 160/4.5 [Symbicort 160/4.5] 1 puff IH BIDR #1 hfa.aer.ad 06/11/18 [Rx] Ipratropium/Albuterol Neb [Duoneb] 3 ml IH Q4HR #30 vial.neb 06/11/18 [Rx] Tiotropium [Spiriva] 18 mcg IH 0700 #30 capsule 06/11/18 [Rx] predniSONE [PredniSONE] 40 mg PO DAILY #25 tablet 06/11/18 [Rx] Allergies/Adverse Reactions: 3 Allergy/AdvReac Type Severity Reaction Status Date / Time hydrocodone [From Vicodin] Allergy See Verified 01/14/18 11:37 Comments moxifloxacin Allergy See Verified 01/14/18 11:37 Comments Date of admission: 06/09/18 07:42 [facility] care [facility] Consults: 06/11/18 10:30 PT [Consult to Physical Therapy] [CONS] Routine Comment: Evaluate, develop and implement POC Reason for Consult: deconditioning Does patient have active BEDREST order?: No Is patient medically & hemodynamically stable?: Yes - Constitutional Vitals: Temp Pulse Resp BP Pulse Ox 97.5 F L 65 18 122/63 96 06/11/18 11:09 06/11/18 11:09 06/11/18 11:09 06/11/18 11:09 06/11/18 11:09 General appearance: Present: A&O X 1, mild distress Exam: General: Alert and oriented, not in acute distress. Cardiovascular:Normal S1 & S2, No JVD. Pulse regular. Lungs: clear to auscultation, no wheezes/rales Abdomen:Soft, non-tender, no rigidity. Extremities:No deformity or swelling Neurological:Normal cognition and motor skills. Non-focal - Patient Status Disposition: Home, Self-Care Condition: Fair Functional capacity at discharge: uses cane/walker Overall status at discharge: patient is progressing back to baseline - Discharge Instructions Instructions: Chronic Obstructive Pulmonary Disease (DC), Acute Respiratory Distress Syndrome (DC), Diabetes Mellitus Type 2 in Adults (DC), Chronic Hypertension (DC) Follow Up With: Onofre Rendon MD [Partnered Physician] - (Office is to call me back with follow up appointment) [facility],PCP [Primary Care Provider] - 06/19/18 10:30 am - Diet and Activity Activity: resume usual activities as tolerated Diet: advance to your usual diet
[2018-06-11 15:24] VITALS: BP 134/63
[2018-06-12] MEDS ORDERED: Azithromycin 250 MG TABLET PO SCH (09:00)
== END 2018-06-11 16:18 | disposition home or self-care (01) | DRG 193 ==
LOC: EMEROOARM 01:12 → 2NNU 01:12 → SUATTDRO 03:55 → 2NNU 04:32 → SUATTDRO 07:42 → 2ANU 06-11 06:13
PROVIDERS: ADMIT Internal Medicine; ATTEND Internal Medicine